=== PATIENT | male | born 1945 | race Caucasian/White ===

== ENCOUNTER → 2020-04-09 14:24 | Outpatient (BNVA) | payer MEDICARE, SELFPAY | PROVIDERS: PCP Internal Medicine Medical Oncology; Visit Provider Internal Medicine | DX: J44.9 Chronic obstructive pulmonary disease, unspecified (principal); Z79.899 Other long term (current) drug therapy | CPT/HCPCS: 99212 ==

== ENCOUNTER → 2020-05-08 10:42 | Outpatient (BNVA) | payer MEDICARE, SELFPAY | PROVIDERS: PCP Internal Medicine Medical Oncology; Visit Provider Internal Medicine | DX: J44.9 Chronic obstructive pulmonary disease, unspecified (principal) | CPT/HCPCS: 99212 ==

== ENCOUNTER → 2020-09-12 10:13 | Outpatient (BNVA) | payer MEDICARE, SELFPAY | PROVIDERS: PCP Internal Medicine Medical Oncology; Visit Provider Internal Medicine | DX: J44.9 Chronic obstructive pulmonary disease, unspecified (principal) | CPT/HCPCS: 99212 ==

== ENCOUNTER 2021-01-29 10:00 | Outpatient (REF) | payer MEDICARE, SELFPAY ==
[2021-01-29 10:19] LABS: MANUAL DIFF FLAG NO
[2021-01-29 10:46] LABS: Basophils Percent Auto 0.4 % (0-2); Eosinophils Absolute Auto 0.2 X10*3/uL (0.0-0.4); Eosinophils Percent Auto 1.8 % (0-4); Hematocrit 47.5 % (42-52); Hemoglobin 15.5 g/dl (14.0-18.0); Imm Gran Abs Auto 0.04 X10*3/uL (0.00-0.03); Imm Gran Pct Auto 0.5 % (0.0-0.4); Lymphocytes Absolute Auto 1.3 X10*3/uL (1.2-4.9); Lymphocytes Percent Auto 15.1 % (20-40); Mean Corpuscular HGB Conc 32.6 g/dl (31.0-36.0); Mean Corpuscular Hemoglobin 30.3 pg (27.0-33.0); Mean Corpuscular Volume 92.8 fL (80-98); Mean Platelet Volume 8.3 fL (9.4-12.4); Monocytes Absolute Auto 0.7 X10*3/uL (0.1-1.2); Monocytes Percent Auto 8.7 % (2-11); Neutrophils Absolute Auto 6.2 X10*3/uL (2.0-8.3); Neutrophils Percent Auto 73.5 % (45-73); Platelet Count 279 X10*3/uL (160-400); Red Blood Count 5.12 X10*6/uL (4.60-5.80); Red Cell Distribution Width 13.8 % (11.0-16.0); White Blood Count 8.4 X10*3/uL (4.8-10.8)
[2021-01-29 11:17] LABS: Alanine Aminotransferase 25 U/L (0-40); Albumin Level 3.9 g/dL (3.5-5.0); Alkaline Phosphatase 159 U/L (39-117); Anion Gap 12 (12-20); Aspartate Amino Transferase 18 U/L (5-37); Bilirubin Total 0.4 mg/dL (0.0-1.0); Blood Urea Nitrogen 17 mg/dL (9-16); Calcium 9.4 mg/dL (8.4-10.2); Carbon Dioxide 28 mmol/L (22-29); Chloride 105 mmol/L (96-108); Cholesterol 201 mg/dL; Estimated Glomerular Filt Rate > 60; Glucose Random 101 mg/dL (60-115); HDL Cholesterol 32 mg/dL; LDL Cholesterol Calculated 136 mg/dl; Potassium 4.8 mmol/L (3.3-5.1); Sodium 140 mmol/L (135-145); Total Protein 6.9 g/dL (6.5-8.0); Triglycerides 168 mg/dL
[2021-01-29 11:40] LABS: Prostate Specific Antigen 1.42 ng/mL (<0.05-4.0)
== END 2021-01-29 10:01 | disposition home or self-care (01) ==
LOC: HO.LAB 10:00
PROVIDERS: PCP Internal Medicine Medical Oncology; Visit Provider Internal Medicine Medical Oncology
DX: Z12.5 Encounter for screening for malignant neoplasm of prostate (principal); E78.2 Mixed hyperlipidemia; E66.9 Obesity, unspecified; N40.1 Benign prostatic hyperplasia with lower urinary tract symptoms
CPT/HCPCS: 36415; 80053; 80061; 84153; 85025

== ENCOUNTER → 2021-03-13 09:09 | Outpatient (BNVA) | payer MEDICARE, SELFPAY | PROVIDERS: PCP Internal Medicine Medical Oncology; Visit Provider Internal Medicine | DX: J44.9 Chronic obstructive pulmonary disease, unspecified (principal) | CPT/HCPCS: 99212 ==

== ENCOUNTER 2021-06-04 08:31 | Outpatient (REF) | payer MEDICARE, SELFPAY ==
[2021-06-04 08:48] LABS: MANUAL DIFF FLAG NO
[2021-06-04 09:35] LABS: Basophils Percent Auto 0.3 % (0-2); Eosinophils Absolute Auto 0.1 X10*3/uL (0.0-0.4); Eosinophils Percent Auto 1.4 % (0-4); Hematocrit 50.2 % (42.0-52.0); Hemoglobin 16.1 g/dl (14.0-18.0); Imm Gran Abs Auto 0.02 X10*3/uL (0.00-0.03); Imm Gran Pct Auto 0.3 % (0.0-0.4); Lymphocytes Absolute Auto 1.5 X10*3/uL (1.2-4.9); Lymphocytes Percent Auto 18.9 % (20-40); Mean Corpuscular HGB Conc 32.1 g/dl (31.0-36.0); Mean Corpuscular Hemoglobin 30.3 pg (27.0-33.0); Mean Corpuscular Volume 94.5 fL (80.0-98.0); Mean Platelet Volume 8.9 fL (9.4-12.4); Monocytes Absolute Auto 0.7 X10*3/uL (0.1-1.2); Monocytes Percent Auto 9.2 % (2-11); Neutrophils Absolute Auto 5.4 x10*3/uL (2.0-8.3); Neutrophils Percent Auto 69.9 % (45-73); Platelet Count 220 X10*3/uL (160-400); Red Blood Count 5.31 X10*6/uL (4.60-5.80); Red Cell Distribution Width 14.2 % (11.0-16.0); White Blood Count 7.7 X10*3/uL (4.8-10.8)
[2021-06-04 10:15] LABS: Alanine Aminotransferase 17 U/L (0-40); Albumin Level 4.3 g/dL (3.5-5.0); Alkaline Phosphatase 138 U/L (39-117); Anion Gap 13 (12-20); Aspartate Amino Transferase 20 U/L (5-37); Bilirubin Total 0.5 mg/dL (0.0-1.0); Blood Urea Nitrogen 17 mg/dL (9-16); Calcium 9.9 mg/dL (8.4-10.2); Carbon Dioxide 29 mmol/L (22-29); Chloride 104 mmol/L (96-108); Cholesterol 255 mg/dL; Estimated Glomerular Filt Rate > 60; Glucose Fasting 97 mg/dL (60-99); HDL Cholesterol 45 mg/dL; LDL Cholesterol Calculated 173 mg/dl; Potassium 4.9 mmol/L (3.3-5.1); Sodium 141 mmol/L (135-145); Total Protein 7.4 g/dL (6.5-8.0); Triglycerides 188 mg/dL
== END 2021-06-04 08:32 | disposition home or self-care (01) ==
LOC: HO.LAB 08:31
PROVIDERS: PCP Internal Medicine Medical Oncology; Visit Provider Internal Medicine Medical Oncology
DX: J44.9 Chronic obstructive pulmonary disease, unspecified (principal); E78.2 Mixed hyperlipidemia; Z86.2 Personal history of diseases of the blood and blood-forming organs and certain disorders involving the immune mechanism
CPT/HCPCS: 36415; 80053; 80061; 85025

== ENCOUNTER → 2021-08-29 09:11 | Outpatient (BNVA) | payer MEDICARE, SELFPAY | PROVIDERS: PCP Internal Medicine Medical Oncology; Visit Provider Internal Medicine | DX: J44.1 Chronic obstructive pulmonary disease with (acute) exacerbation (principal); J06.9 Acute upper respiratory infection, unspecified | CPT/HCPCS: 99212 ==

== ENCOUNTER 2021-09-03 10:07 | Outpatient (REF) | payer MEDICARE, SELFPAY ==
[2021-09-03 10:33] LABS: MANUAL DIFF FLAG NO
[2021-09-03 11:07] LABS: Basophils Absolute Auto 0.1 X10*3/uL (0.0-0.2); Basophils Percent Auto 0.4 % (0-2); Eosinophils Absolute Auto 0.1 X10*3/uL (0.0-0.4); Eosinophils Percent Auto 0.4 % (0-4); Hematocrit 46.7 % (42.0-52.0); Hemoglobin 15.4 g/dl (14.0-18.0); Imm Gran Abs Auto 0.27 X10*3/uL (0.00-0.03); Imm Gran Pct Auto 2.2 % (0.0-0.4); Lymphocytes Absolute Auto 1.9 X10*3/uL (1.2-4.9); Lymphocytes Percent Auto 15.4 % (20-40); Mean Corpuscular Hemoglobin 30.6 pg (27.0-33.0); Mean Corpuscular Volume 92.7 fL (80.0-98.0); Mean Platelet Volume 8.5 fL (9.4-12.4); Monocytes Absolute Auto 1.2 X10*3/uL (0.1-1.2); Monocytes Percent Auto 9.4 % (2-11); Neutrophils Absolute Auto 8.9 x10*3/uL (2.0-8.3); Neutrophils Percent Auto 72.2 % (45-73); Platelet Count 319 X10*3/uL (160-400); Red Blood Count 5.04 X10*6/uL (4.60-5.80); Red Cell Distribution Width 14.4 % (11.0-16.0); White Blood Count 12.3 X10*3/uL (4.8-10.8)
[2021-09-03 11:25] LABS: Alanine Aminotransferase 19 U/L (0-40); Albumin Level 3.9 g/dL (3.5-5.0); Alkaline Phosphatase 123 U/L (39-117); Anion Gap 14 (12-20); Aspartate Amino Transferase 18 U/L (5-37); Bilirubin Total 0.6 mg/dL (0.0-1.0); Blood Urea Nitrogen 14 mg/dL (9-16); Calcium 9.7 mg/dL (8.4-10.2); Carbon Dioxide 27 mmol/L (22-29); Chloride 103 mmol/L (96-108); Cholesterol 220 mg/dL; Estimated Glomerular Filt Rate > 60; Glucose Fasting 85 mg/dL (60-99); HDL Cholesterol 40 mg/dL; LDL Cholesterol Calculated 153 mg/dl; Sodium 140 mmol/L (135-145); Triglycerides 138 mg/dL
[2021-09-03 11:47] LABS: Prostate Specific Antigen 2.42 ng/mL (<0.05-4.0)
== END 2021-09-03 10:08 | disposition home or self-care (01) ==
LOC: HO.LAB 10:07
PROVIDERS: PCP Internal Medicine Medical Oncology; Visit Provider Internal Medicine Medical Oncology
DX: Z12.5 Encounter for screening for malignant neoplasm of prostate (principal); J44.9 Chronic obstructive pulmonary disease, unspecified; E78.2 Mixed hyperlipidemia; N40.1 Benign prostatic hyperplasia with lower urinary tract symptoms
CPT/HCPCS: 36415; 80053; 80061; 84153; 85025

== ENCOUNTER → 2021-09-12 13:00 | Outpatient (BNVA) | payer MEDICARE, SELFPAY | PROVIDERS: PCP Internal Medicine Medical Oncology; Visit Provider Internal Medicine | DX: J44.9 Chronic obstructive pulmonary disease, unspecified (principal) | CPT/HCPCS: 99212 ==

== ENCOUNTER 2022-04-19 15:21 | Outpatient (REF) | payer MEDICARE, SELFPAY ==
[2022-04-19 16:25] LABS: Appearance Urine Cloudy; Color Urine DK YELLOW; Glucose Urine UA Negative (Negative); Leukocyte Esterase Urine Small (1+) (Negative); Nitrite Urine Positive (Negative); PH 5.5 (5.0-9.0); Specific Gravity - Urine 1.025 (1.005-1.025); UMIC TRIGGER UACC YES; Urine Blood Large (3+) (Negative); Urine Ketones Trace mg/dL (Negative); Urine Protein 100 (2+) mg/dL (Neg-Trace)
[2022-04-19 16:37] LABS: Bacteria Urine 1+ (None Seen); Calcium Oxalate Crystals Urine Present; Hyaline Casts Urine 0-2 /LPF (0-2); Other Crystals Urine Present; RBC Urine >20 /HPF (0-2); Squamous Epithelial Cell Urine 0-2 /HPF (0-2); UACC Culture Trigger YES; WBC Urine >50 /HPF (0-5)
== END 2022-04-19 15:22 | disposition home or self-care (01) ==
LOC: HO.LAB 15:21
PROVIDERS: Visit Provider Physician Assistant Medical
DX: R31.9 Hematuria, unspecified (principal)
CPT/HCPCS: 81001; 87086

== ENCOUNTER 2022-04-22 08:11 | Outpatient (REF) | payer MEDICARE, SELFPAY ==
[2022-04-22 08:22] LABS: MANUAL DIFF FLAG NO
[2022-04-22 08:57] LABS: Basophils Percent Auto 0.3 % (0-2); Eosinophils Absolute Auto 0.1 X10*3/uL (0.0-0.4); Eosinophils Percent Auto 1.4 % (0-4); Hematocrit 47.8 % (42.0-52.0); Hemoglobin 15.8 g/dl (14.0-18.0); Imm Gran Abs Auto 0.03 X10*3/uL (0.00-0.03); Imm Gran Pct Auto 0.4 % (0.0-0.4); Lymphocytes Absolute Auto 1.7 X10*3/uL (1.2-4.9); Lymphocytes Percent Auto 21.8 % (20-40); Mean Corpuscular HGB Conc 33.1 g/dl (31.0-36.0); Mean Corpuscular Hemoglobin 30.4 pg (27.0-33.0); Mean Corpuscular Volume 91.9 fL (80.0-98.0); Mean Platelet Volume 8.5 fL (9.4-12.4); Monocytes Absolute Auto 0.6 X10*3/uL (0.1-1.2); Monocytes Percent Auto 8.3 % (2-11); Neutrophils Absolute Auto 5.2 x10*3/uL (2.0-8.3); Neutrophils Percent Auto 67.8 % (45-73); Platelet Count 225 X10*3/uL (160-400); Red Cell Distribution Width 13.7 % (11.0-16.0); White Blood Count 7.6 X10*3/uL (4.8-10.8)
[2022-04-22 09:33] LABS: Appearance Urine Cloudy; Color Urine Yellow; Glucose Urine UA Negative (Negative); Leukocyte Esterase Urine Large (3+) (Negative); Nitrite Urine Negative (Negative); Specific Gravity - Urine 1.015 (1.005-1.025); UMIC TRIGGER UACC YES; Urine Blood Negative (Negative); Urine Ketones Negative (Negative); Urine Protein Negative (Neg-Trace)
[2022-04-22 09:35] LABS: Alanine Aminotransferase 14 U/L (0-40); Albumin Level 4.1 g/dL (3.5-5.0); Alkaline Phosphatase 133 U/L (39-117); Anion Gap 11 (12-20); Aspartate Amino Transferase 18 U/L (5-37); Bilirubin Total 0.5 mg/dL (0.0-1.0); Blood Urea Nitrogen 13 mg/dL (9-16); Calcium 9.4 mg/dL (8.4-10.2); Carbon Dioxide 29 mmol/L (22-29); Chloride 106 mmol/L (96-108); Cholesterol 219 mg/dL; Estimated Glomerular Filt Rate > 60; Glucose Random 100 mg/dL (60-115); HDL Cholesterol 43 mg/dL; LDL Cholesterol Calculated 147 mg/dl; Potassium 4.5 mmol/L (3.3-5.1); Sodium 141 mmol/L (135-145); Total Protein 6.9 g/dL (6.5-8.0); Triglycerides 146 mg/dL
[2022-04-22 10:13] LABS: Calcium Oxalate Crystals Urine Present; UACC Culture Trigger YES; WBC Urine 21-50 /HPF (0-5)
[2022-04-22 10:15] LABS: Bacteria Urine Trace (None Seen); Hyaline Casts Urine 0-2 /LPF (0-2); RBC Urine 0-2 /HPF (0-2)
== END 2022-04-22 08:12 | disposition home or self-care (01) ==
LOC: HO.LAB 08:11
PROVIDERS: Physician Assistant Medical; PCP Internal Medicine Medical Oncology; Visit Provider Internal Medicine Medical Oncology
DX: Z00.00 Encounter for general adult medical examination without abnormal findings (principal); J44.9 Chronic obstructive pulmonary disease, unspecified; E78.2 Mixed hyperlipidemia; E66.9 Obesity, unspecified
CPT/HCPCS: 36415; 80053; 80061; 81001; 85025; 87086

== ENCOUNTER 2022-07-16 08:20 | Outpatient (REF) | payer MEDICARE, SELFPAY ==
[2022-07-16 08:36] LABS: MANUAL DIFF FLAG NO
[2022-07-16 09:03] LABS: Basophils Percent Auto 0.4 % (0-2); Eosinophils Absolute Auto 0.1 X10*3/uL (0.0-0.4); Eosinophils Percent Auto 1.7 % (0-4); Hematocrit 46.8 % (42.0-52.0); Hemoglobin 15.6 g/dl (14.0-18.0); Imm Gran Abs Auto 0.04 X10*3/uL (0.00-0.03); Imm Gran Pct Auto 0.5 % (0.0-0.4); Lymphocytes Absolute Auto 1.6 X10*3/uL (1.2-4.9); Lymphocytes Percent Auto 19.4 % (20-40); Mean Corpuscular HGB Conc 33.3 g/dl (31.0-36.0); Mean Corpuscular Hemoglobin 30.8 pg (27.0-33.0); Mean Corpuscular Volume 92.3 fL (80.0-98.0); Mean Platelet Volume 8.5 fL (9.4-12.4); Monocytes Absolute Auto 0.7 X10*3/uL (0.1-1.2); Monocytes Percent Auto 7.9 % (2-11); Neutrophils Absolute Auto 5.8 x10*3/uL (2.0-8.3); Neutrophils Percent Auto 70.1 % (45-73); Platelet Count 258 X10*3/uL (160-400); Red Blood Count 5.07 X10*6/uL (4.60-5.80); Red Cell Distribution Width 14.2 % (11.0-16.0); White Blood Count 8.2 X10*3/uL (4.8-10.8)
[2022-07-16 09:43] LABS: Alanine Aminotransferase 17 U/L (0-40); Alkaline Phosphatase 138 U/L (39-117); Anion Gap 12 (12-20); Aspartate Amino Transferase 18 U/L (5-37); Bilirubin Total 0.5 mg/dL (0.0-1.0); Blood Urea Nitrogen 14 mg/dL (9-16); Calcium 9.5 mg/dL (8.4-10.2); Carbon Dioxide 29 mmol/L (22-29); Chloride 107 mmol/L (96-108); Cholesterol 227 mg/dL; Estimated Glomerular Filt Rate > 60; Glucose Fasting 100 mg/dL (60-99); HDL Cholesterol 41 mg/dL; LDL Cholesterol Calculated 154 mg/dl; Potassium 4.9 mmol/L (3.3-5.1); Sodium 143 mmol/L (135-145); Total Protein 6.6 g/dL (6.5-8.0); Triglycerides 161 mg/dL
[2022-07-16 10:03] LABS: Ferritin 89 ng/mL (20-250)
== END 2022-07-16 08:21 | disposition home or self-care (01) ==
LOC: HO.LAB 08:20
PROVIDERS: PCP Internal Medicine Medical Oncology; Visit Provider Internal Medicine Medical Oncology
DX: J43.9 Emphysema, unspecified (principal); E78.2 Mixed hyperlipidemia; Z86.2 Personal history of diseases of the blood and blood-forming organs and certain disorders involving the immune mechanism
CPT/HCPCS: 36415; 80053; 80061; 82728; 85025

== ENCOUNTER → 2022-09-02 10:06 | Outpatient (BNVA) | payer MEDICARE, SELFPAY | PROVIDERS: PCP Internal Medicine Medical Oncology; Visit Provider Internal Medicine | DX: J44.9 Chronic obstructive pulmonary disease, unspecified (principal) | CPT/HCPCS: 99212 ==

== ENCOUNTER 2022-10-15 09:23 | Outpatient (REF) | payer MEDICARE, SELFPAY ==
[2022-10-15 09:43] LABS: MANUAL DIFF FLAG NO
[2022-10-15 10:43] LABS: Basophils Percent Auto 0.2 % (0-2); Eosinophils Absolute Auto 0.1 X10*3/uL (0.0-0.4); Eosinophils Percent Auto 1.4 % (0-4); Hematocrit 46.6 % (42.0-52.0); Hemoglobin 15.3 g/dl (14.0-18.0); Imm Gran Abs Auto 0.02 X10*3/uL (0.00-0.03); Imm Gran Pct Auto 0.3 % (0.0-0.4); Lymphocytes Absolute Auto 1.4 X10*3/uL (1.2-4.9); Lymphocytes Percent Auto 21.4 % (20-40); Mean Corpuscular HGB Conc 32.8 g/dl (31.0-36.0); Mean Corpuscular Hemoglobin 30.3 pg (27.0-33.0); Mean Corpuscular Volume 92.3 fL (80.0-98.0); Monocytes Absolute Auto 0.7 X10*3/uL (0.1-1.2); Monocytes Percent Auto 10.2 % (2-11); Neutrophils Absolute Auto 4.3 x10*3/uL (2.0-8.3); Neutrophils Percent Auto 66.5 % (45-73); Platelet Count 209 X10*3/uL (160-400); Red Blood Count 5.05 X10*6/uL (4.60-5.80); Red Cell Distribution Width 14.5 % (11.0-16.0); White Blood Count 6.4 X10*3/uL (4.8-10.8)
[2022-10-15 11:28] LABS: Alanine Aminotransferase 17 U/L (0-40); Albumin Level 3.9 g/dL (3.5-5.0); Alkaline Phosphatase 121 U/L (39-117); Anion Gap 13 (12-20); Aspartate Amino Transferase 20 U/L (5-37); Bilirubin Total 0.6 mg/dL (0.0-1.0); Blood Urea Nitrogen 14 mg/dL (9-16); Calcium 9.5 mg/dL (8.4-10.2); Carbon Dioxide 26 mmol/L (22-29); Chloride 105 mmol/L (96-108); Cholesterol 201 mg/dL; Estimated Glomerular Filt Rate > 60; Glucose Fasting 94 mg/dL (60-99); HDL Cholesterol 45 mg/dL; LDL Cholesterol Calculated 130 mg/dl; Potassium 4.1 mmol/L (3.3-5.1); Sodium 140 mmol/L (135-145); Total Protein 6.9 g/dL (6.5-8.0); Triglycerides 133 mg/dL
== END 2022-10-15 09:24 | disposition home or self-care (01) ==
LOC: HO.LAB 09:23
PROVIDERS: PCP Internal Medicine Medical Oncology; Visit Provider Internal Medicine Medical Oncology
DX: E78.2 Mixed hyperlipidemia (principal); E66.9 Obesity, unspecified; N40.1 Benign prostatic hyperplasia with lower urinary tract symptoms
CPT/HCPCS: 36415; 80053; 80061; 85025

== ENCOUNTER 2023-03-10 10:15 | Outpatient (AMB) | payer MEDICARE, SELFPAY ==
--- NOTE | 2023-03-10 10:31 | A.OFFVIS_ITS ---
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 Allergies Penicillins [PENICILLINS] Allergy (Intermediate, Verified 03/10/23 10:43) SWELLING Sulfa (Sulfonamide Antibiotics) [Sulfa (Sulfonamides)] Allergy (Mild, Verified 03/10/23 10:43) RASH Medication List - Last Reconciled 03/10/23 by Mary Jo Mckeon MD albuterol sulfate 90 mcg/actuation 2 puffs PO Q4H PRN 30 days antiarthritic combination no.2 (glucosamine-chondroitin) mg PO Breo Ellipta 200-25 mcg/dose (fluticasone furoate-vilanterol) 1 ea PO DAILY NS flu vacc [id number](65yr up)-PF mL IM Incruse Ellipta 62.5 mcg/actuation (umeclidinium) 1 inh PO DAILY NS multivitamin (Daily Multi-Vitamin tablet) 1 tab PO DAILY pravastatin 80 mg PO BEDTIME Do you need a note to return to daycare/school/sports/work: No HPI COPD HPI Details 78 years old gentleman is here for 6 mon ths follow-up, for his COPD. He has remained very stable. Had a few episodes of increased shortness of breath in the fall, when he was working outside with the leaves. But he did not have to have any extra medication. Now he is doing well. He has only mild shortness of breath when he does physical work but he is okay at rest. Luckily he has had no respiratory infection. He lives alone , has a house on the [place] ( [facility] ) In summer he does get lot of friends and family members , but in winter he is mostly by himself. [facility] Medical History COPD exacerbation Upper respiratory infection COPD (chronic obstructive pulmonary disease) Social History Patient Tobacco Use Status: Former Tobacco user Review of Systems Const All systems reviewed & are unremarkable except as noted in HPI and below Eyes Reports no additional complaints ENT Reports no additional complaints Card Denies chest pain, Denies irregular heart rhythm and Denies leg edema Resp Reports as per HPI GI Reports no additional complaints Reports no additional complaints Musc Reports back pain (mild , if he does any physical work .) Skin/Breast Reports system reviewed and no additional complaints, except as documented Neuro Reports no additional complaints Physical Exam Vital Signs: Last Vital Signs Pulse 88 03/10/23 10:32 BP 102/70 03/10/23 10:32 Pulse Ox 98 03/10/23 10:32 Oxygen Delivery Method Room Air 03/10/23 10:32 BMI result Body Mass Index 29.4 Const General: comfortable, no acute distress, alert and awake Orientation/consciousness: patient oriented x3 HEENT Head: Yes normal to inspection General nose exam: No nasal polyps present, No nasal discharge present and Other nasal findings present (He does have mild nasal congestion) Face and sinus: Yes sinuses nontender Mouth: oropharynx normal Throat: Yes posterior oropharynx normal and Yes posterior oropharynx abnormal (Slightly erythema) Eyes General: appearance normal, both eyes and all related structures Neck Neck: Yes normal visual inspection, Yes no lymphadenopathy, Yes trachea midline and Yes no JVD Thyroid: Thyroid normal Chest Chest palpation & inspection: normal inspection of the chest, normal palpation of entire chest wall and no tenderness Resp Other: Percussion note is resonant, breath sounds are very distant with prolonged expiratory phase. There are no audible wheezes rhonchi . Cardio Palpation: normal PMI Rate: regular rate Rhythm: regular rhythm Heart sounds: no gallops and no murmurs GI Palpation (GI): Soft to palpation, nontender, No hepatosplenomegaly present and no masses Auscultation: normal bowel sounds Back/Spine/Pelvis Thoracic/Lumbar Spine: thoracic and lumbar spine normal to inspection and thoraco-lumbar ROM limited Skin General skin exam: no rashes or lesions noted Neuro General: patient oriented x3 and no focal motor deficits Cranial nerves: Yes CN's II-XII intact bilaterally Extrem General: Yes normal to inspection, Yes no clubbing, cyanosis or edema and Yes no calf tenderness Psych Appearance: grossly normal and well kempt Speech and movement: Normal speech and movement present Assessment & Plan Assessment & Plan (1) COPD (chronic obstructive pulmonary disease): Comment: He has rather severe , COPD . No recent acute exacerbations. Code(s): J44.9 - Chronic obstructive pulmonary disease, unspecified Plan: [place] : BREO-200, 1 INHALATION DAILY INCRUSE Ellipta 1 INHALATION DAILY PROAIR HFA 2 PUFFS Q.6 HOURS P.R.N.. * advised to do deep breathing exercises at least 3 times a day. Revisit Q 6 months. Coding Level of Care Code Est Pt Level 3 (42470) Diagnoses COPD (chronic obstructive pulmonary disease) J44.9
[2023-03-10 10:32] VITALS: BP 102/70; PULSE 88; O2SAT 98; BMI 29.4
== END 2023-03-10 10:58 | disposition home or self-care (01) ==
PROVIDERS: PCP Internal Medicine Medical Oncology; Visit Provider Internal Medicine
DX: J44.9 Chronic obstructive pulmonary disease, unspecified (principal)
CPT/HCPCS: 99213

== ENCOUNTER → 2023-03-10 10:15 | Outpatient (BNVA) | payer MEDICARE, SELFPAY | PROVIDERS: PCP Internal Medicine Medical Oncology; Visit Provider Internal Medicine | DX: J44.9 Chronic obstructive pulmonary disease, unspecified (principal) | CPT/HCPCS: 99212 ==

== ENCOUNTER 2023-03-24 09:04 | Outpatient (REF) | payer MEDICARE, SELFPAY ==
[2023-03-24 09:16] LABS: MANUAL DIFF FLAG NO
[2023-03-24 10:00] LABS: Basophils Percent Auto 0.2 % (0-2); Eosinophils Absolute Auto 0.2 X10*3/uL (0.0-0.4); Eosinophils Percent Auto 1.9 % (0-4); Hematocrit 46.1 % (42.0-52.0); Hemoglobin 15.2 g/dl (14.0-18.0); Imm Gran Abs Auto 0.05 X10*3/uL (0.00-0.03); Imm Gran Pct Auto 0.5 % (0.0-0.4); Lymphocytes Absolute Auto 1.4 X10*3/uL (1.2-4.9); Lymphocytes Percent Auto 13.8 % (20-40); Mean Corpuscular Hemoglobin 30.7 pg (27.0-33.0); Mean Corpuscular Volume 93.1 fL (80.0-98.0); Mean Platelet Volume 8.9 fL (9.4-12.4); Monocytes Absolute Auto 0.7 X10*3/uL (0.1-1.2); Neutrophils Absolute Auto 7.6 x10*3/uL (2.0-8.3); Neutrophils Percent Auto 76.6 % (45-73); Platelet Count 218 X10*3/uL (160-400); Red Blood Count 4.95 X10*6/uL (4.60-5.80); Red Cell Distribution Width 13.7 % (11.0-16.0); White Blood Count 9.9 X10*3/uL (4.8-10.8)
[2023-03-24 10:38] LABS: Alanine Aminotransferase 13 U/L (0-40); Alkaline Phosphatase 162 U/L (39-117); Anion Gap 13 (12-20); Aspartate Amino Transferase 16 U/L (5-37); Bilirubin Total 0.5 mg/dL (0.0-1.0); Blood Urea Nitrogen 14 mg/dL (9-16); Calcium 9.8 mg/dL (8.4-10.2); Carbon Dioxide 27 mmol/L (22-29); Chloride 106 mmol/L (96-108); Cholesterol 199 mg/dL (<200); Estimated Glomerular Filt Rate > 60; Glucose Fasting 98 mg/dL (60-99); HDL Cholesterol 36 mg/dL (>40); LDL Cholesterol Calculated 131 mg/dL (<100); Potassium 4.4 mmol/L (3.3-5.1); Sodium 142 mmol/L (135-145); Total Protein 7.5 g/dL (6.5-8.0); Triglycerides 163 mg/dL (<150)
[2023-03-24 10:43] LABS: Prostate Specific Antigen 1.11 ng/mL (<0.05-4.0)
== END 2023-03-24 09:05 | disposition home or self-care (01) ==
LOC: HO.LAB 09:04
PROVIDERS: PCP Internal Medicine Medical Oncology; Visit Provider Internal Medicine Medical Oncology
DX: E78.2 Mixed hyperlipidemia (principal); N40.1 Benign prostatic hyperplasia with lower urinary tract symptoms; E66.3 Overweight; Z12.5 Encounter for screening for malignant neoplasm of prostate
CPT/HCPCS: 36415; 80053; 80061; 84153; 85025

== ENCOUNTER 2023-08-04 09:03 | Outpatient (REF) | payer MEDICARE, SELFPAY ==
[2023-08-04 09:13] LABS: MANUAL DIFF FLAG NO
[2023-08-04 09:37] LABS: Basophils Percent Auto 0.2 % (0-2); Eosinophils Absolute Auto 0.2 X10*3/uL (0.0-0.4); Eosinophils Percent Auto 1.8 % (0-4); Hematocrit 47.2 % (42.0-52.0); Hemoglobin 15.9 g/dl (14.0-18.0); Imm Gran Abs Auto 0.03 X10*3/uL (0.00-0.03); Imm Gran Pct Auto 0.3 % (0.0-0.4); Lymphocytes Absolute Auto 1.6 X10*3/uL (1.2-4.9); Lymphocytes Percent Auto 18.2 % (20-40); Mean Corpuscular HGB Conc 33.7 g/dl (31.0-36.0); Mean Corpuscular Hemoglobin 30.9 pg (27.0-33.0); Mean Corpuscular Volume 91.8 fL (80.0-98.0); Mean Platelet Volume 8.8 fL (9.4-12.4); Monocytes Absolute Auto 0.7 X10*3/uL (0.1-1.2); Monocytes Percent Auto 7.9 % (2-11); Neutrophils Absolute Auto 6.3 x10*3/uL (2.0-8.3); Neutrophils Percent Auto 71.6 % (45-73); Platelet Count 203 X10*3/uL (160-400); Red Blood Count 5.14 X10*6/uL (4.60-5.80); Red Cell Distribution Width 14.4 % (11.0-16.0); White Blood Count 8.8 X10*3/uL (4.8-10.8)
[2023-08-04 10:13] LABS: Alanine Aminotransferase 15 U/L (0-40); Albumin Level 4.1 g/dL (3.5-5.0); Alkaline Phosphatase 137 U/L (39-117); Anion Gap 13 (12-20); Aspartate Amino Transferase 20 U/L (5-37); Bilirubin Total 0.4 mg/dL (0.0-1.0); Blood Urea Nitrogen 16 mg/dL (9-16); Calcium 9.8 mg/dL (8.4-10.2); Carbon Dioxide 27 mmol/L (22-29); Chloride 105 mmol/L (96-108); Cholesterol 203 mg/dL (<200); Estimated Glomerular Filt Rate > 60; Glucose Fasting 95 mg/dL (60-99); HDL Cholesterol 41 mg/dL (>40); LDL Cholesterol Calculated 130 mg/dL (<100); Potassium 4.3 mmol/L (3.3-5.1); Sodium 141 mmol/L (135-145); Total Protein 7.5 g/dL (6.5-8.0); Triglycerides 160 mg/dL (<150)
[2023-08-04 10:28] LABS: Ferritin 86 ng/mL (20-250)
[2023-08-07 21:48] LABS: Alk.Phos Iso. Macrohepatic 0 % (<=0); Alk.Phos Isoenzymes Bone 34 % (28-66); Alk.Phos Isoenzymes Intest 9 % (1-24); Alk.Phos Isoenzymes Liver 57 % (25-69); Alk.Phos Isoenzymes Placental 0 % (<=0); Alk.Phos Isoenzymes Total 130 U/L (35-144)
== END 2023-08-04 09:04 | disposition home or self-care (01) ==
LOC: HO.LAB 09:03
PROVIDERS: PCP Internal Medicine Medical Oncology; Visit Provider Internal Medicine Medical Oncology
DX: E78.2 Mixed hyperlipidemia (principal); E66.3 Overweight; R74.8 Abnormal levels of other serum enzymes
CPT/HCPCS: 36415; 80053; 80061; 82728; 84080; 85025

== ENCOUNTER 2023-09-09 14:25 | Outpatient (AMB) | payer MEDICARE, SELFPAY ==
[2023-09-09 15:08] VITALS: BP 118/60; PULSE 111; O2SAT 95; BMI 29.6
--- NOTE | 2023-09-09 15:08 | MHC.OFFVIS ---
Vital Signs 09/09/23 15:08 Height 6 ft Weight 218 lb BMI 29.6 BP 118/60 Blood Pressure Location Lt brachial Position Sitting Pulse 111 H Pulse Source Pulse Oximeter Pulse Oximetry (%) 95 Oxygen Delivery Method Room Air Intake Visit Reasons: copd Intake Note: pt is here for follow up visit and states he has been having trouble the past few days, coughing up phlegm in chunks, no fever, but has to hit the inhaler when walking distances the past couple of days. 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 Allergies Penicillins [PENICILLINS] Allergy (Intermediate, Verified 09/09/23 16:26) SWELLING Sulfa (Sulfonamide Antibiotics) [Sulfa (Sulfonamides)] Allergy (Mild, Verified 09/09/23 16:26) RASH Medication List - Last Reconciled 09/09/23 by Mary Jo Mckeon MD albuterol sulfate 90 mcg/actuation 2 puffs PO Q4H PRN 30 days antiarthritic combination no.2 (glucosamine-chondroitin) mg PO Breo Ellipta 200-25 mcg/dose (fluticasone furoate-vilanterol) 1 ea PO DAILY NS flu vacc [id number](65yr up)-PF mL IM Incruse Ellipta 62.5 mcg/actuation (umeclidinium) 1 inh PO DAILY NS multivitamin (Daily Multi-Vitamin tablet) 1 tab PO DAILY pravastatin 80 mg PO BEDTIME prednisone 20 mg PO BID 5 days Do you need a note to return to daycare/school/sports/work: No HPI HPI copd: Details: MR. CANELA, 78 YEARS OLD GENTLEMAN, IS HERE FOR FOLLOW-UP FOR HIS COPD. HE HAS BEEN DOING VERY WELL IN THE LAST 6 MONTHS, EXCEPT THAT SINCE ABOUT 1 WEEK HE IS FEELING MORE CONGESTED WITH FREQUENT COUGH AND EXPECTORATING INCREASED AMOUNT OF PHLEGM. HE THINKS THIS IS DUE TO CHANGE IN THE WEATHER. HE DENIES HAVING HAD ANY FEVER OR CHILLS , AND HIS SPUTUM REMAINS WHITE. HE HAS BEEN USING ALBUTEROL MORE THAN A FEW TIMES EVERY DAY. [facility] Medical History COPD exacerbation Upper respiratory infection COPD (chronic obstructive pulmonary disease) Social History Patient Tobacco Use Status: Former Tobacco user Review of Systems Const All systems reviewed & are unremarkable except as noted in HPI and below Eyes Reports no additional complaints ENT Reports no additional complaints Card Denies chest pain, Denies irregular heart rhythm and Denies leg edema Resp Reports as per HPI GI Reports no additional complaints Reports no additional complaints Musc Reports back pain (mild , if he does any physical work .) Skin/Breast Reports system reviewed and no additional complaints, except as documented Neuro Reports no additional complaints Physical Exam Vital Signs: Last Vital Signs Pulse 111 H 09/09/23 15:08 BP 118/60 09/09/23 15:08 Pulse Ox 95 09/09/23 15:08 Oxygen Delivery Method Room Air 09/09/23 15:08 BMI result Body Mass Index 29.6 Const General: comfortable, no acute distress, alert and awake Orientation/consciousness: patient oriented x3 HEENT Head: Yes normal to inspection General nose exam: No nasal polyps present, No nasal discharge present and Other nasal findings present (He does have mild nasal congestion) Face and sinus: Yes sinuses nontender Mouth: oropharynx normal Throat: Yes posterior oropharynx normal and Yes posterior oropharynx abnormal (Slightly erythema) Eyes General: appearance normal, both eyes and all related structures Neck Neck: Yes normal visual inspection, Yes no lymphadenopathy, Yes trachea midline and Yes no JVD Thyroid: Thyroid normal Chest Chest palpation & inspection: normal inspection of the chest, normal palpation of entire chest wall and no tenderness Resp Other: Percussion note is resonant, breath sounds are very distant with prolonged expiratory phase. HE DOES HAVE SCATTERED INSPIRATORY WHEEZES OVER THE LOWER PARTS OF THE CHEST ON BOTH SIDES. Cardio Palpation: normal PMI Rate: regular rate Rhythm: regular rhythm Heart sounds: no gallops and no murmurs GI Palpation (GI): Soft to palpation, nontender, No hepatosplenomegaly present and no masses Auscultation: normal bowel sounds Back/Spine/Pelvis Thoracic/Lumbar Spine: thoracic and lumbar spine normal to inspection and thoraco-lumbar ROM limited Skin General skin exam: no rashes or lesions noted Neuro General: patient oriented x3 and no focal motor deficits Cranial nerves: Yes CN's II-XII intact bilaterally Extrem General: Yes normal to inspection, Yes no clubbing, cyanosis or edema and Yes no calf tenderness Psych Appearance: grossly normal and well kempt Speech and movement: Normal speech and movement present Assessment & Plan Assessment & Plan (1) COPD exacerbation: Comment: HE IS KNOWN TO HAVE ADVANCED CHRONIC OBSTRUCTIVE PULMONARY DISEASE FOR THE PAST MANY YEARS, IT REMAINS RELATIVELY CONTROLLED AND STABLE MOST OF THE TIME. HE IS PRONE TO HAVE ACUTE EXACERBATION ONCE OR TWICE A YEAR., PROBABLY DUE TO CHANGE IN THE WEATHER. AT PRESENT HE HAS AN ACUTE EXACERBATION, BUT DOES NOT SEEM TO HAVE ANY ACUTE RESPIRATORY INFECTION. Code(s): J44.1 - Chronic obstructive pulmonary disease with (acute) exacerbation Category: Medical Plan: TX: Continue Breo-200-25 1 inhalation daily and Incruse Ellipta 1 inhalation daily. Use ProAir 2 puffs Q 4-6 hours p.r.n. but avoid any excessive use. WILL GIVE HIM A SHORT COURSE OF PREDNISONE, TOTAL MG B.I.D. FOR 5 DAYS . MAY USE STEAM INHALATION 2 TO 3 TIMES A DAY REPORT AFTER 5 DAYS IF NOT MUCH BETTER. DISCUSSED ABOUT POSSIBLE USE OF THE NEBULIZER. HOWEVER HE HAS NO PROBLEM WITH USING PROAIR. Medications: New prednisone 20 mg PO BID 10 tabs 0RF copd excerbation 5 days Coding Level of Care Code Est Pt Level 3 (13602) Diagnoses COPD exacerbation J44.1
== END 2023-09-09 15:31 | disposition home or self-care (01) ==
PROVIDERS: PCP Internal Medicine Medical Oncology; Visit Provider Internal Medicine
DX: J44.1 Chronic obstructive pulmonary disease with (acute) exacerbation (principal)
CPT/HCPCS: 99213

== ENCOUNTER → 2023-09-09 14:25 | Outpatient (BNVA) | payer MEDICARE, SELFPAY | PROVIDERS: PCP Internal Medicine Medical Oncology; Visit Provider Internal Medicine | DX: J44.1 Chronic obstructive pulmonary disease with (acute) exacerbation (principal) | CPT/HCPCS: 99212 ==

== ENCOUNTER 2023-11-26 08:59 | Outpatient (REF) | payer MEDICARE, SELFPAY ==
[2023-11-26 09:10] LABS: MANUAL DIFF FLAG NO
[2023-11-26 09:30] LABS: Basophils Percent Auto 0.4 % (0-2); Eosinophils Absolute Auto 0.2 X10*3/uL (0.0-0.4); Eosinophils Percent Auto 1.9 % (0-4); Hematocrit 46.6 % (42.0-52.0); Hemoglobin 15.6 g/dl (14.0-18.0); Imm Gran Abs Auto 0.02 X10*3/uL (0.00-0.03); Imm Gran Pct Auto 0.2 % (0.0-0.4); Lymphocytes Absolute Auto 1.7 X10*3/uL (1.2-4.9); Lymphocytes Percent Auto 20.7 % (20-40); Mean Corpuscular HGB Conc 33.5 g/dl (31.0-36.0); Mean Corpuscular Hemoglobin 30.6 pg (27.0-33.0); Mean Corpuscular Volume 91.4 fL (80.0-98.0); Mean Platelet Volume 8.5 fL (9.4-12.4); Monocytes Absolute Auto 0.7 X10*3/uL (0.1-1.2); Monocytes Percent Auto 9.2 % (2-11); Neutrophils Absolute Auto 5.4 x10*3/uL (2.0-8.3); Neutrophils Percent Auto 67.6 % (45-73); Platelet Count 239 X10*3/uL (160-400); Red Cell Distribution Width 14.3 % (11.0-16.0)
[2023-11-26 09:59] LABS: Alanine Aminotransferase 16 U/L (0-40); Albumin Level 4.1 g/dL (3.5-5.0); Alkaline Phosphatase 125 U/L (39-117); Anion Gap 12 (12-20); Aspartate Amino Transferase 22 U/L (5-37); Bilirubin Total 0.5 mg/dL (0.0-1.0); Blood Urea Nitrogen 16 mg/dL (9-16); Carbon Dioxide 29 mmol/L (22-29); Chloride 107 mmol/L (96-108); Cholesterol 216 mg/dL (<200); Estimated Glomerular Filt Rate > 60; Glucose Fasting 100 mg/dL (60-99); HDL Cholesterol 43 mg/dL (>40); LDL Cholesterol Calculated 142 mg/dL (<100); Potassium 4.3 mmol/L (3.3-5.1); Sodium 144 mmol/L (135-145); Total Protein 7.3 g/dL (6.5-8.0); Triglycerides 159 mg/dL (<150)
[2023-11-26 10:16] LABS: Prostate Specific Antigen 1.46 ng/mL (<0.05-4.0)
== END 2023-11-26 09:00 | disposition home or self-care (01) ==
LOC: HO.LAB 08:59
PROVIDERS: PCP Internal Medicine Medical Oncology; Visit Provider Internal Medicine Medical Oncology
DX: E78.2 Mixed hyperlipidemia (principal); N40.1 Benign prostatic hyperplasia with lower urinary tract symptoms; E66.3 Overweight; Z12.5 Encounter for screening for malignant neoplasm of prostate
CPT/HCPCS: 36415; 80053; 80061; 84153; 85025

== ENCOUNTER 2024-03-07 14:51 | Outpatient (AMB) | payer MEDICARE, SELFPAY ==
[2024-03-07 15:06] VITALS: PULSE 123; O2SAT 92; BMI 28.9
--- NOTE | 2024-03-07 15:06 | MHC.OFFVIS ---
Vital Signs 03/07/24 15:06 Height 6 ft Weight 212 lb 11.937 oz BMI 28.9 Pulse 123 H Pulse Source Pulse Oximeter Pulse Oximetry (%) 92 Oxygen Delivery Method Nasal Cannula Oxygen Flow Rate 2 Intake Visit Reasons: increased shortness of breath/productive cough Allergies Penicillins [PENICILLINS] Allergy (Intermediate, Verified 03/07/24 15:34) SWELLING Sulfa (Sulfonamide Antibiotics) [Sulfa (Sulfonamides)] Allergy (Mild, Verified 03/07/24 15:34) RASH HPI HPI increased shortness of breath/productive cough: Details: Jaren is a pleasant 79 year old male, former smoker, with underlying COPD. At baseline is moderately controlled on Breo, Incruse and albuterol MDI. He is under the care of Dr. Mckeon and presents today for an acute visit. Since Thursday patient has had worsening dyspnea on minimal exertion and productive cough. He denies wheezing or chest tightness. He denies sick contacts, chills, or fever. He has been using albuterol with minimal effect. Upon arrival to room patient was 83% on room air, never requiring supplemental oxygen previously. HR 120s with minimal exertion. Denies any chest pain or dizziness. Of note, he reports symptoms started after a fall sustaining right shoulder pain. He denies striking head. He denies evaluation for this. [facility] Medical History COPD exacerbation Upper respiratory infection COPD (chronic obstructive pulmonary disease) Social History Patient Tobacco Use Status: Former Tobacco user Review of Systems Const Denies chills, Denies excessive sweating, Denies fever(s), Denies headache(s) and Denies night sweats Eyes Denies dry eyes, Denies irritation and Denies itchy eyes ENT Reports Normal hearing present and Denies headache(s) Card Denies chest pain, Denies chest pain at rest, Denies chest pain with activity, Denies claudication, Denies leg edema, Denies orthopnea and Denies paroxysmal nocturnal dyspnea Resp Denies excessive phlegm production, Denies pain on inspiration, Denies pain with cough, Denies stridor and Denies wheezing Musc Denies myalgias Neuro Reports Normal hearing present and Denies headache(s) Endo Denies excessive sweating Jovan/Lymph Denies lymphadenopathy Aller/Immun Denies itchy eyes, Denies seasonal rhinorrhea and Denies wheezing Physical Exam Vital Signs: Last Vital Signs Pulse 123 H 03/07/24 15:06 Pulse Ox 92 03/07/24 15:06 Oxygen Delivery Method Nasal Cannula 03/07/24 15:06 Oxygen Flow Rate 2 03/07/24 15:06 BMI result Body Mass Index 28.9 Const General: cooperative, well developed and alert Nutritional Appearance: obese Orientation/consciousness: patient oriented x3 Limitations: no limitations HEENT Head: Yes normal to inspection, Yes normocephalic and Yes atraumatic Ears: hearing grossly normal bilaterally and external ears normal Eyes General: appearance normal, both eyes and all related structures Eyelids: Yes eyelids normal Sclerae: sclerae normal EOM: EOMs intact bilaterally Neck Neck: Yes normal visual inspection and Yes no lymphadenopathy Lymphatic: no lymphadenopathy noted Chest Chest palpation & inspection: normal inspection of the chest Resp Effort & Inspection: able to speak in complete sentences, no audible wheezes, labored, no stridor, not tachypneic, no tripod positioning, no use of accessory muscles and prolonged expiratory phase Auscultation: rhonchi and diminished lung sounds Cardio Jugular venous distension: no JVD Rate: regular rate Rhythm: regular rhythm Skin Other: warm, dry General skin exam: no rashes or lesions noted Neuro General: patient oriented x3 Cranial nerves: Yes Normal hearing present Cognition (Neuro): normal cognition Gait exam (Neuro): Normal gait present Extrem General: Yes normal to inspection, Yes capillary refill normal, Yes no clubbing, cyanosis or edema and Yes no pedal edema Psych Appearance: grossly normal and well kempt Speech and movement: Normal speech and movement present and Clear speech present Affect: normal affect Attitude: cooperative Thought process: Normal thought process present Thought content: Normal thought content present Insight: Good insight present (Psych) Judgement: Good judgement present (Psych) Assessment & Plan Assessment & Plan (1) COPD exacerbation: Code(s): J44.1 - Chronic obstructive pulmonary disease with (acute) exacerbation Category: Medical Plan Patient newly requiring supplemental oxygen, 83% on room air, recovering to >92% on 2L however with prolonged speech patient would desaturate to 90% on 2L and tachycardic. Will send to ED for emergent evaluation. Patient was transported in wheelchair by nursing staff to ED. Will follow up with Dr. Mckeon for ED follow up. Coding Level of Care Code Est Pt Level 4 (00762) Complex EM visit Add On G2211 Diagnoses COPD exacerbation J44.1
== END 2024-03-07 16:16 | disposition home or self-care (01) ==
PROVIDERS: PCP Internal Medicine Medical Oncology; Visit Provider Nurse Practitioner Family
DX: J44.1 Chronic obstructive pulmonary disease with (acute) exacerbation (principal)
CPT/HCPCS: 99214; G2211

== ENCOUNTER 2024-03-07 15:26 | Inpatient (IN) | payer MEDICARE, SELFPAY ==
--- NOTE | ~2024-03-07 | XR_ITS ---
EXAMINATION: XR CHEST CLINICAL INFORMATION: sob COMPARISON: Chest x-ray on 06/01/2019 TECHNIQUE: 2 views of the chest were obtained. FINDINGS: The cardiac silhouette is normal. There is mild diffuse bronchial wall thickening. There is a region of subpleural consolidation/density along the right upper lobe. Interstitial and alveolar opacity in the left lower lobe. There are no pleural effusions or pneumothoraces. XR/XR chest 2V IMPRESSION: Left lower lobe pneumonia. Right upper lobe density may represent consolidation versus mass. Recommend short interval follow-up. Electronically signed by: Melvi Wong MD 03/07/2024 04:48 PM [facility] [place]
--- NOTE | ~2024-03-07 | CT_ITS ---
EXAMINATION: CTA CHEST CLINICAL INFORMATION: Lung mass versus pulmonary emboli COMPARISON: Chest radiograph earlier today TECHNIQUE: Multidetector volumetric CT imaging of the chest was obtained both before as well as after the administration of 65 mL of Omnipaque 350 intravenous contrast without immediate adverse reactions. Axial MIP volume rendering provided. Sagittal and coronal reformatted images were obtained. Additional 2-D coronal and sagittal reformatted images and axial 3-D maximum intensity projection MIP images are generated on the CT workstation. This CT examination was performed using dose optimization techniques as appropriate, variously including the following: *Automated exposure control *Adjustment of mA and/or kV according to patient size (this includes techniques or standardized protocols for targeted exams where dose is matched to indication/reason for exam; i.e. extremities or head) *Use of iterative reconstruction technique DLP: 449 mGy-cm VASCULAR FINDINGS: No pulmonary emboli are seen. NONVASCULAR FINDINGS: LUNGS: Severe emphysematous changes are present throughout the lungs. A saber-sheath trachea is present. Subpleural reticulation is present.. Multiple masslike areas are seen in the left lower lobe (7:268 and 306) with the largest measuring about 2.2 cm. MEDIASTINUM: Some small mediastinal lymph nodes are seen measuring 1.0 cm in short axis dimension. CORONARY ARTERY CALCIFICATION: Absent PLEURA: There is no pleural effusion. No pleural mass or thickening. AXILLA/CHEST WALL: There is a 2.1 x 2.8 x 3.3 cm water density subcutaneous mass, likely a sebaceous cyst . No axillary lymphadenopathy. There is a right chest wall mass measuring 3.8 x 5.5 x 3.8 cm with associated destruction of the right third anterolateral rib. There is a subpectoral right-sided lymph node present adjacent to the chest wall mass measuring 1.9 x 1.5 x 2.3 cm (5:20 and 8:31). UPPER ABDOMEN: A small hiatal hernia is present. The adrenal glands are unremarkable. OSSEOUS STRUCTURES: Destructive lesion of the right third rib as described above. There is a compression fracture involving the L1 vertebral body. No other bony destructive lesions are seen. CT/CT angio chest PE protocol IMPRESSION: 1. No evidence of pulmonary emboli. 2. Severe emphysema with multiple masslike areas in the left lower lobe. 3. Right chest wall mass with associated destruction of the right third rib. 4. Right subpectoral lymphadenopathy. 5. L1 compression fracture. 6. Above-mentioned findings are concerning for malignancy. Biopsy of the destructive chest wall mass could easily be performed under CT guidance. 7. Other incidental findings as described above. Fleischner guidelines were followed. Electronically signed by: Clarence Block MD 03/07/2024 11:20 PM [facility]
--- NOTE | ~2024-03-07 | XR_ITS ---
EXAMINATION: XR SHOULDER, RIGHT CLINICAL INFORMATION: fall COMPARISON: None available. TECHNIQUE: Three views of the right shoulder. FINDINGS: No fracture Acromioclavicular joint: there is mild to moderate osteoarthritis of the acromioclavicular joint. Glenohumeral joint: Small marginal osteophytes without joint space narrowing indicative of mild osteoarthritis. Surrounding bone and soft tissues unremarkable. XR/XR shoulder RT min 2V IMPRESSION: Osteoarthritis Electronically signed by: Pierce Trevino MD 03/07/2024 05:37 PM EST RP
[2024-03-07 15:31] VITALS: BP 133/80; PULSE 117; RESP 18; TEMP 36.4; O2SAT 95; BMI 29.0
--- NOTE | 2024-03-07 15:35 | ECG_ITS ---
Test Reason : SOB Blood Pressure : / mmHG Vent. Rate : 117 BPM Atrial Rate : 117 BPM P-R Int : 128 ms QRS Dur : 086 ms QT Int : 322 ms P-R-T Axes : 096 041 047 degrees QTc Int : 449 ms Poor data quality Sinus tachycardia Otherwise normal ECG When compared with ECG of 08-FEB-2013 13:13, No significant change was found Referred By: Generic ED Physician Electronically Signed By:Tre Grace
[2024-03-07 16:27] LABS: MANUAL DIFF FLAG NO
[2024-03-07 16:34] LABS: Basophils Percent Auto 0.2 % (0-2); Eosinophils Absolute Auto 0.4 X10*3/uL (0.0-0.4); Eosinophils Percent Auto 3.5 % (0-4); Hemoglobin 15.6 g/dl (14.0-18.0); Imm Gran Abs Auto 0.08 X10*3/uL (0.00-0.03); Imm Gran Pct Auto 0.6 % (0.0-0.4); Lymphocytes Absolute Auto 1.2 X10*3/uL (1.2-4.9); Lymphocytes Percent Auto 9.6 % (20-40); Mean Corpuscular HGB Conc 33.9 g/dl (31.0-36.0); Mean Corpuscular Hemoglobin 30.4 pg (27.0-33.0); Mean Corpuscular Volume 89.7 fL (80.0-98.0); Mean Platelet Volume 8.9 fL (9.4-12.4); Monocytes Absolute Auto 1.2 X10*3/uL (0.1-1.2); Monocytes Percent Auto 9.9 % (2-11); Neutrophils Absolute Auto 9.4 x10*3/uL (2.0-8.3); Neutrophils Percent Auto 76.2 % (45-73); Platelet Count 200 X10*3/uL (160-400); Red Blood Count 5.13 X10*6/uL (4.60-5.80); Red Cell Distribution Width 14.6 % (11.0-16.0); White Blood Count 12.4 X10*3/uL (4.8-10.8)
[2024-03-07 16:41] LABS: D Dimer High Sensitivity 823 NG/ML
[2024-03-07 16:52] LABS: INTERNATIONAL NORM RATIO 1.1 (0.9-1.1); Prothrombin Time 12.5 SEC (10.9-12.4)
[2024-03-07 16:55] LABS: Partial Thromboplastin Time 30.1 SEC (26.0-36.8)
[2024-03-07 16:57] LABS: Alanine Aminotransferase 12 U/L (0-40); Albumin Level 3.9 g/dL (3.5-5.0); Alkaline Phosphatase 155 U/L (39-117); Anion Gap 16 (12-20); Aspartate Amino Transferase 26 U/L (5-37); Bilirubin Total 0.6 mg/dL (0.0-1.0); Blood Urea Nitrogen 30 mg/dL (9-16); Calcium 9.9 mg/dL (8.4-10.2); Carbon Dioxide 22 mmol/L (22-29); Chloride 106 mmol/L (96-108); Creatinine Clr Calc Pharmacy 99.3; Estimated Glomerular Filt Rate > 60; Ethanol < 10 mg/dL; Glucose Random 101 mg/dL (60-115); Potassium 3.9 mmol/L (3.3-5.1); Sodium 140 mmol/L (135-145); Total Protein 7.5 g/dL (6.5-8.0)
[2024-03-07 17:12] LABS: Influenza A PCR NEGATIVE (Negative); Influenza B PCR NEGATIVE (Negative); Resp Syncy Virus RNA Qual PCR NEGATIVE (Negative); SARS COV2 PCR INHOUSE NEGATIVE (Negative)
[2024-03-07 17:22] LABS: B Type Natriuretic Peptide 10 pg/mL (<100)
--- NOTE | 2024-03-07 17:24 | ED.GENADULT ---
HPI - General Adult General Chief complaint: Dyspnea Stated complaint: sob,low 02 sat, fell 03/04 Time Seen by Provider: 03/07/24 17:52 Source: patient Mode of arrival: ambulatory Limitations: no limitations History of Present Illness ED Provider: HPI narrative: Patient's history of COPD ex-smoker comes here for increased shortness a breath started 3 days ago use his nebulizer treatment without much relief no chest pain no palpitation no fever no chills patient does have a cough and lately is getting mucopurulent phlegm no fever no chills patient also complaining of pain in the right side of the chest for last few days patient is saturating 82% at room air not on oxygen at home Related Data Home Medications ?Medication ?Instructions ?Recorded ?Confirmed multivitamin (Daily Multi-Vitamin 1 tab PO DAILY 09/12/20 03/07/24 tablet) pravastatin 80 mg tablet 80 mg PO BEDTIME 09/02/22 03/07/24 Previous Rx's ?Medication ?Instructions ?Recorded albuterol sulfate 90 mcg/actuation 2 puff PO Q4H PRN for wheezing 11/04/23 aerosol inhaler #8.5 grams Breo Ellipta 200 mcg-25 mcg/dose 1 ea PO DAILY #60 ea 03/07/24 powder for inhalation (fluticasone furoate-vilanterol) Incruse Ellipta 62.5 mcg/actuation 1 inh PO DAILY #30 ea 03/07/24 powder for inhalation (umeclidinium) Allergies Allergy/AdvReac Type Severity Reaction Status Date / Time Penicillins [PENICILLINS] Allergy Intermediate SWELLING Verified 03/07/24 15:34 Sulfa (Sulfonamide Allergy Mild RASH Verified 03/07/24 15:34 Antibiotics) [Sulfa (Sulfonamides)] Review of Systems Review of Systems: Yes all other systems are reviewed and are negative PMF Past Medical History Medical History (Updated 03/08/24 @ 14:53 by Miguel Dodge MD) COPD exacerbation Upper respiratory infection COPD (chronic obstructive pulmonary disease) Surgical History (Updated 03/08/24 @ 13:53 by Celi Cordero PA-C) History of arthroscopy of left knee History of back surgery History of total replacement of both hip joints Social History Social History Alcohol intake: current Alcohol intake frequency: a few times a month Alcohol type: beer Patient Tobacco Use Status: Former Tobacco user Smoked in Last 30 Days: No Use of substances other than those prescribed or required for medical reasons: No Advance Directives: No Advance Directives Information Provided: No Nutrition Risks: No Nutritional Risk service: Yes Physical Exam ED Vital Signs: Vital Signs - 24 hr 03/07/24 19:50 03/07/24 19:52 03/07/24 20:27 Temperature 97.6 F 98.3 F Pulse Rate 110 H 109 H 120 H Respiratory Rate 20 20 22 H Blood Pressure 127/80 127/63 Pulse Oximetry 97 96 Oxygen Delivery Method Room Air Nasal Cannula Oxygen Flow Rate 2 2 BMI result Body Mass Index 29.0 Appearance: Alert. Oriented X3. Moderate respiratory distress Eyes: No pallor or icterus ENT: Pharynx normal. Oral Mucosa moist Neck: Normal inspection. Neck supple. CVS: Normal heart rate and rhythm. Pulses normal. Respiratory: Motor respiratory distress. Equal air entry bilateral, bilateral prolonged expiration Abdomen: Soft and nontender. Bowel sounds are present, no mass palpable, no CVA tenderness Skin: Skin warm and dry. Normal skin color. Normal skin turgor. Extremities: No lower extremity edema. No calf tenderness Neuro: Oriented X 3. No motor deficit. No sensory deficit.No cerebellar signs , cranial nerves II-XII intact Course Course Course Narrative: RME: 79-year-old male was sent from primary care for O2 saturation 82%. Mother time patient came to our ED vital signs were stable O2 sat was 95 percent on room air. Lungs clear. labs, EKG, and imaging ordered by Nurse. Chest xry ordered. Medications Administered Generic Name Dose Route Start Last Admin Trade Name Freq PRN Reason Stop Dose Admin Albuterol Sulfate 2.5 mg 03/08/24 08:00 03/08/24 15:36 Albuterol Sulfate (0.083%) 2.5 Mg/3 Ml Vial.Neb INHALE 2.5 mg RQ4H WHILE AWAKE GUS Administration Azithromycin 500 mg 03/08/24 09:00 03/08/24 09:29 Azithromycin 500 Mg Tablet PO 500 mg DAILY GUS Administration Docusate Sodium 100 mg 03/08/24 09:00 03/08/24 09:29 Docusate Sodium 100 Mg Capsule PO 100 mg BID GUS Administration Enoxaparin Sodium 40 mg 03/08/24 09:00 03/08/24 09:29 Enoxaparin Sodium 40 Mg/0.4 Ml Syringe SUBCUT 40 mg DAILY GUS Administration Ipratropium [place] 0.5 mg 03/08/24 08:00 03/08/24 15:37 Ipratropium [place] 0.5 Mg/2.5 Ml Solution INHALE 0.5 mg RQ4H WHILE AWAKE GUS Administration Methylprednisolone Sodium Succinate 40 mg 03/08/24 09:00 03/08/24 09:29 Methylprednisolone Sod Succ 40 Mg/Ml Vial IVPUSH 40 mg BID GUS Administration Multivitamins/Vitamin C 1 tab 03/08/24 09:00 03/08/24 09:29 Multivitamin Tablet PO 1 tab DAILY GUS Administration Sodium Chloride 3 ml 03/08/24 00:00 03/08/24 09:30 0.9 % Sodium Chloride Flush 3 Ml Syringe IVFLUSH 3 ml QSHIFT GUS Administration Discontinued Medications Generic Name Dose Route Start Last Admin Trade Name Freq PRN Reason Stop Dose Admin Ceftriaxone Sodium 1 gm 03/07/24 18:17 03/07/24 18:43 Ceftriaxone Sodium 1 Gm Vial IVPUSH 03/07/24 18:18 1 gm ONCE ONE Administration Albuterol Sulfate 2.5 mg/ 0 mg 03/07/24 19:12 03/07/24 19:49 Albuterol/Ipratropium 3 ml INHALE 03/07/24 19:13 1 dose ONCE ONE Administration Sodium Chloride 1,000 mls @ 999 mls/hr 03/07/24 18:14 03/07/24 20:43 Ns IV 03/07/24 19:14 Infused .Q1H1M ONE Infusion Azithromycin 500 mg/ Sodium 250 mls @ 125 mls/hr 03/07/24 18:17 03/07/24 20:43 Chloride IV 03/07/24 20:16 Infused ONCE ONE Infusion Iohexol 65 ml 03/07/24 18:58 03/07/24 18:58 Iohexol 350 Mg/Ml 100 Ml Infus..Btl IV 03/07/24 18:59 65 ml ONCE ONE Administration Morphine Sulfate 4 mg 03/08/24 00:32 03/08/24 01:00 Morphine Sulfate 4 Mg/Ml Cartridge IVPUSH 03/08/24 00:33 4 mg ONCE ONE Administration Protocol Ondansetron HCl 4 mg 03/08/24 00:32 03/08/24 01:00 Ondansetron Hcl 4 Mg/2 Ml Vial IVPUSH 03/08/24 00:33 4 mg ONCE ONE Administration Medical Decision Making Medical Decision Making [facility] Narrative: Patient's COPD with hypoxia CTA chest showed to set to mass right 3rd rib likely malignancy no evidence of PE will admit patient for lung cancer with hypoxia with COPD patient has a elevated lactic acid level secondary to nebulizing treatment no evidence of pneumonia in the CT scan patient was given Zithromax and Rocephin on arrival Differential Diagnosis Differential Diagnoses: The differential diagnosis associated with the presentation includes PE/COPD/CHF Admission/Observation Consideration of admission/observation: Escalation of care including admission/observation considered Consult Healthcare Provider Management of the patient was discussed with: Hospitalist Lab Data [facility] Lab Attestation statement: I reviewed the patient's lab results. 03/08/24 04:44 03/08/24 04:44 Labs: Lab Results 03/07/24 03/07/24 Range/Units 16:22 19:36 WBC 12.4 H (4.8-10.8) X10*3/uL RBC 5.13 (4.60-5.80) X10*6/uL Hgb 15.6 (14.0-18.0) g/dl Hct 46.0 (42.0-52.0) % MCV 89.7 (80.0-98.0) fL MCH 30.4 (27.0-33.0) pg MCHC 33.9 (31.0-36.0) g/dl RDW 14.6 (11.0-16.0) % Plt Count 200 (160-400) X10*3/uL MPV 8.9 L (9.4-12.4) fL Immature Gran % (Auto) 0.6 H (0.0-0.4) % Neut % (Auto) 76.2 H (45-73) % Lymph % (Auto) 9.6 L (20-40) % [place] % (Auto) 9.9 (2-11) % Eos % (Auto) 3.5 (0-4) % Baso % (Auto) 0.2 (0-2) % Lymph # (Auto) 1.2 (1.2-4.9) X10*3/uL [place] # (Auto) 1.2 (0.1-1.2) X10*3/uL Eos # (Auto) 0.4 (0.0-0.4) X10*3/uL Baso # (Auto) 0.0 (0.0-0.2) X10*3/uL Abs Immat Gran (auto) 0.08 H (0.00-0.03) X10*3/uL Absolute Neuts (auto) 9.4 H (2.0-8.3) x10*3/uL Absolute Nucleated RBC 0.000 (0.0-0.012) X10*3/uL Nucleated RBC % (auto) 0.0 (0.0-0.2) /100WBC PT 12.5 H (10.9-12.4) SEC INR 1.1 (0.9-1.1) APTT 30.1 (26.0-36.8) SEC D-Dimer High Sensitivty 823 NG/ML Sodium 140 (135-145) mmol/L Potassium 3.9 (3.3-5.1) mmol/L Chloride 106 (96-108) mmol/L Carbon Dioxide 22 (22-29) mmol/L Anion Gap 16 (12-20) BUN 30 H (9-16) mg/dL Creatinine 0.74 (0.5-1.4) mg/dL Estim Creat Clear Calc 99.3 Estimated GFR > 60 Random Glucose 101 (60-115) mg/dL Lactic Acid 4.2 H* (0.5-2.0) mmol/L Calcium 9.9 (8.4-10.2) mg/dL Total Bilirubin 0.6 (0.0-1.0) mg/dL AST 26 (5-37) U/L ALT 12 (0-40) U/L Alkaline Phosphatase 155 H (39-117) U/L Troponin I High Sens < 2.7 (<3.5-35.0) ng/L B-Natriuretic Peptide 10 (<100) pg/mL Total Protein 7.5 (6.5-8.0) g/dL Albumin 3.9 (3.5-5.0) g/dL Ethyl Alcohol < 10 mg/dL Influenza Type A (PCR) NEGATIVE (Negative) Influenza Type B (PCR) NEGATIVE (Negative) RSV RNA Qual (PCR) NEGATIVE (Negative) SARS-CoV-2 RNA (RT-PCR) NEGATIVE (Negative) Independent Interpretation I performed an independent interpretation of an: EKG and CT Scan Interpretation: Sinus tachycardia with a heart rate 170 beats per minute normal interval normal axis no acute STT wave changes no ischemia Radiology Impression Discussion of test interpretation with radiology: I have reviewed the radiologist's reading. Radiologist Impression: [address] [address] [address] Scan Report Signed Patient: Jaren Up MR#: [id number] : 1945 Acct:[id number] Age/Sex: 79 / M ADM Date: 03/07/24 Loc: [place] [address]: Subhash Welch MD Ordering Physician: Jeffrey Ellsworth MD Date of Service: 03/07/24 Procedure(s): CT angio chest PE protocol Accession Number(s): [id number] cc: Koby Peña MD; Jeffrey Ellsworth MD~ EXAMINATION: CTA CHEST CLINICAL INFORMATION: Lung mass versus pulmonary emboli COMPARISON: Chest radiograph earlier today TECHNIQUE: Multidetector volumetric CT imaging of the chest was obtained both before as well as after the administration of 65 mL of Omnipaque 350 intravenous contrast without immediate adverse reactions. Axial MIP volume rendering provided. Sagittal and coronal reformatted images were obtained. Additional 2-D coronal and sagittal reformatted images and axial 3-D maximum intensity projection MIP images are generated on the CT workstation. This CT examination was performed using dose optimization techniques as appropriate, variously including the following: *Automated exposure control *Adjustment of mA and/or kV according to patient size (this includes techniques or standardized protocols for targeted exams where dose is matched to indication/reason for exam; i.e. extremities or head) *Use of iterative reconstruction technique DLP: 449 mGy-cm VASCULAR FINDINGS: No pulmonary emboli are seen. NONVASCULAR FINDINGS: LUNGS: Severe emphysematous changes are present throughout the lungs. A saber-sheath trachea is present. Subpleural reticulation is present.. Multiple masslike areas are seen in the left lower lobe (7:268 and 306) with the largest measuring about 2.2 cm. MEDIASTINUM: Some small mediastinal lymph nodes are seen measuring 1.0 cm in short axis dimension. CORONARY ARTERY CALCIFICATION: Absent PLEURA: There is no pleural effusion. No pleural mass or thickening. AXILLA/CHEST WALL: There is a 2.1 x 2.8 x 3.3 cm water density subcutaneous mass, likely a sebaceous cyst . No axillary lymphadenopathy. There is a right chest wall mass measuring 3.8 x 5.5 x 3.8 cm with associated destruction of the right third anterolateral rib. There is a subpectoral right-sided lymph node present adjacent to the chest wall mass measuring 1.9 x 1.5 x 2.3 cm (5:20 and 8:31). UPPER ABDOMEN: A small hiatal hernia is present. The adrenal glands are unremarkable. OSSEOUS STRUCTURES: Destructive lesion of the right third rib as described above. There is a compression fracture involving the L1 vertebral body. No other bony destructive lesions are seen. CT/CT angio chest PE protocol IMPRESSION: 1. No evidence of pulmonary emboli. 2. Severe emphysema with multiple masslike areas in the left lower lobe. 3. Right chest wall mass with associated destruction of the right third rib. 4. Right subpectoral lymphadenopathy. 5. L1 compression fracture. 6. Above-mentioned findings are concerning for malignancy. Biopsy of the destructive chest wall mass could easily be performed under CT guidance. 7. Other incidental findings as described above. Fleischner guidelines were followed. Electronically signed by: Clarence Block MD 03/07/2024 11:20 PM [facility] [place] Discharge Clinical Impression: Acute exacerbation of chronic obstructive airways disease, Acute hypoxemic respiratory failure, Lung cancer Patient Disposition: Admitted As Inpatient
[2024-03-07 17:33] LABS: Troponin-I High Sensitivity < 2.7 ng/L (<3.5-35.0)
[2024-03-07] MEDS: 0.9 % Sodium Chloride 1,000 ML 999 ML IV (18:42)
[2024-03-07] MEDS: Azithromycin 500 MG in 0.9 % Sodium Chloride 250 ML 125 MG IV (18:43)
[2024-03-07] MEDS: cefTRIAXone sodium 1 GM VIAL IVPUSH (18:43)
[2024-03-07] MEDS: iohexoL 350 MG/ML 100 ML INFUS..BTL 65 ML IV (18:58)
[2024-03-07] MEDS: Albuterol Sulfate 2.5 MG, Albuterol/Iprat 2.5/0.5MG 3 ML 3 ML INHALE (19:49)
[2024-03-07 19:50] VITALS: PULSE 110; RESP 20; O2SAT 95
[2024-03-07 19:52] VITALS: BP 127/80; PULSE 109; RESP 20; TEMP 36.4; O2SAT 97
[2024-03-07 20:11] LABS: Lactic Acid 4.2 mmol/L (0.5-2.0)
--- NOTE | 2024-03-07 20:19 | PC.NURSE ---
assumed care of pt at 1900 - MD Ellsworth aware that previous RN pushed iv abx prior to blood cultures being collected
[2024-03-07 20:27] VITALS: BP 127/63; PULSE 120; RESP 22; TEMP 36.8; O2SAT 96
--- NOTE | 2024-03-07 21:09 | PHA.MEDREC ---
Addendum entered by Carolyn Joseph RPh 03/07/24 21:11: Reviewed by [facility] Original Note: Pharmacy Consult ? Medication Reconciliation Pharmacy has completed the medication reconciliation. Spoke to patent to confirm med list.
[2024-03-07 21:42] LABS: Reflex Lactate? Lactic Acid Added
[2024-03-07 22:43] VITALS: BP 125/66; PULSE 125; RESP 18; TEMP 36.6; O2SAT 95
[2024-03-07 22:50] LABS: ~Lactic Acid-LAB USE ONLY 2.2 mmol/L (0.5-2.0)
[2024-03-08] VITALS (11 sets, daily range): BP systolic 97–153; BP diastolic 50–76; PULSE 74–120; RESP 16–20; TEMP 36.6–37.3; O2SAT 91–98
[2024-03-08 00:27] LABS: Reflex Lactate? 2 Y
[2024-03-08] MEDS: Morphine Sulfate 4 MG/ML CARTRIDGE IVPUSH (01:00)
[2024-03-08] MEDS: ondansetron HCL 4 MG/2 ML VIAL IVPUSH (01:00)
[2024-03-08] MEDS: 0.9 % Sodium Chloride Flush 3 ML SYRINGE IVFLUSH ×3 (01:03→17:18)
[2024-03-08 01:57] LABS: ~Lactic Acid-LAB USE ONLY 1.2 mmol/L (0.5-2.0)
--- NOTE | 2024-03-08 04:50 | PM.IMHP ---
History of Present Illness Date of Service: 04/07/24 Attending physician on admission: Subhash Welch Chief Complaint: Shortness of breath x 3 days Patient is a 79 year old white male with underlying COPD who presents to the ED from home complaining of worsening shortness of breath over the last 3 days. He took his breathing treatments with no effects and so came in for evaluation. He admits to having a wet cough but denies any chest pain or wheezing. On arrival to the ED, he was found to be hypoxic with SpO2 of 82% and was placed on supplemental oxygen and also started on IV steroids and received breathing treatments with some improvement. He however still requires oxygen and his breathing is not yet backl to his baseline so admission has been requested for continued care. Review of Systems Review of Systems: 12 system review was completed and is as noted above in the HPI otherwise the rest of the system review is negative. [facility] Medical History COPD exacerbation Upper respiratory infection COPD (chronic obstructive pulmonary disease) Pertinent family history: Reviewed with patient and not relevant to current admission. Social History Alcohol intake: current Alcohol intake frequency: a few times a month Alcohol type: beer Patient Tobacco Use Status: Former Tobacco user Smoked in Last 30 Days: No Use of substances other than those prescribed or required for medical reasons: No Advance Directives: No Advance Directives Information Provided: No Meds Allergies Allergy/AdvReac Type Severity Reaction Status Date / Time Penicillins [PENICILLINS] Allergy Intermediate SWELLING Verified 03/07/24 15:34 Sulfa (Sulfonamide Allergy Mild RASH Verified 03/07/24 15:34 Antibiotics) [Sulfa (Sulfonamides)] Home Medications ?Medication ?Instructions ?Recorded ?Confirmed ?Last Taken ?Type multivitamin (Daily Multi-Vitamin 1 tab PO DAILY 09/12/20 03/07/24 03/07/24 History tablet) pravastatin 80 mg tablet 80 mg PO BEDTIME 09/02/22 03/07/24 03/07/24 History Physical Exam Vital Signs and Narrative: Vital Signs: Last Vital Signs Temp 97.8 F 03/07/24 22:43 Pulse 97 03/08/24 00:57 Resp 18 03/08/24 01:00 BP 131/75 03/08/24 00:57 Pulse Ox 97 03/08/24 00:57 O2 Del Method Nasal Cannula 03/08/24 00:57 O2 Flow Rate 2 03/08/24 00:57 Oxygen Flow Rate 2 03/07/24 15:31 BMI result Body Mass Index 29.0 General: Elderly WM in bed. Awake and alert and in no obvious distress. Psychiatric: Awake and alert. Mood and affect not assessed. HEENT: Normocephalic, atraumatic. No pallor or jaundice. Dry oral mucus membranes Neck: Supple. No JVD Lungs: Diminished BS bilaterally. No rales, rhonchi or wheezes. Heart: RRR. Normal s1/s2. No murmurs, rubs or gallops. No peripheral edema. Abdomen: Scaphoid, Soft, non-tender. Normoactive bowel sounds. No visceromegaly. Genitourinary: Deferred. Back/Spine/Pelvis: Deferred Skin: Warm, dry, well perfused. Normal turgor. No mottling. Normal capillary response. Neurologic: Awake and alert. Well oriented. ?No obvious neurological deficits. CN II - XII grossly normal. . Extremities: Normal muscle bulk, tone and power. No obvious deformities. No peripheral edema. Good peripheral pulses. Results Labs 03/07/24 16:22 03/07/24 16:22 Labs: Laboratory Results - last 24 hr 03/07/24 03/07/24 03/07/24 16:22 19:36 22:24 MCV 89.7 MCH 30.4 MCHC 33.9 RDW 14.6 Plt Count 200 MPV 8.9 L Immature Gran % (Auto) 0.6 H Neut % (Auto) 76.2 H Lymph % (Auto) 9.6 L [place] % (Auto) 9.9 Eos % (Auto) 3.5 Baso % (Auto) 0.2 Lymph # (Auto) 1.2 [place] # (Auto) 1.2 Eos # (Auto) 0.4 Baso # (Auto) 0.0 Abs Immat Gran (auto) 0.08 H Absolute Neuts (auto) 9.4 H Absolute Nucleated RBC 0.000 Nucleated RBC % (auto) 0.0 Hold Purple Top SEE NOTE PT 12.5 H INR 1.1 APTT 30.1 D-Dimer High Sensitivty 823 Anion Gap 16 Estim Creat Clear Calc 99.3 Estimated GFR > 60 Random Glucose 101 Lactic Acid 4.2 H* Lactic Acid F/U @ 2Hr 2.2 H* Lactic Acid F/U @ 4Hr Calcium 9.9 Total Bilirubin 0.6 AST 26 ALT 12 Alkaline Phosphatase 155 H Troponin I High Sens < 2.7 B-Natriuretic Peptide 10 Total Protein 7.5 Albumin 3.9 Hold Yellow Top See Note Ethyl Alcohol < 10 Influenza Type A (PCR) NEGATIVE Influenza Type B (PCR) NEGATIVE RSV RNA Qual (PCR) NEGATIVE SARS-CoV-2 RNA (RT-PCR) NEGATIVE 03/08/24 01:36 MCV MCH MCHC RDW Plt Count MPV Immature Gran % (Auto) Neut % (Auto) Lymph % (Auto) [place] % (Auto) Eos % (Auto) Baso % (Auto) Lymph # (Auto) [place] # (Auto) Eos # (Auto) Baso # (Auto) Abs Immat Gran (auto) Absolute Neuts (auto) Absolute Nucleated RBC Nucleated RBC % (auto) Hold Purple Top PT INR APTT D-Dimer High Sensitivty Anion Gap Estim Creat Clear Calc Estimated GFR Random Glucose Lactic Acid Lactic Acid F/U @ 2Hr Lactic Acid F/U @ 4Hr 1.2 Calcium Total Bilirubin AST ALT Alkaline Phosphatase Troponin I High Sens B-Natriuretic Peptide Total Protein Albumin Hold Yellow Top Ethyl Alcohol Influenza Type A (PCR) Influenza Type B (PCR) RSV RNA Qual (PCR) SARS-CoV-2 RNA (RT-PCR) Imaging Radiologist's Impressions: Impressions Chest X-Ray 03/07/24 15:45 IMPRESSION: Left lower lobe pneumonia. Right upper lobe density may represent consolidation versus mass. Recommend short interval follow-up. Electronically signed by: Melvi Wong MD 03/07/2024 04:48 PM EST RP Shoulder X-Ray 03/07/24 16:40 IMPRESSION: Osteoarthritis Electronically signed by: Pierce Trevino MD 03/07/2024 05:37 PM EST RP Chest CTA 03/07/24 18:49 IMPRESSION: 1. No evidence of pulmonary emboli. 2. Severe emphysema with multiple masslike areas in the left lower lobe. 3. Right chest wall mass with associated destruction of the right third rib. 4. Right subpectoral lymphadenopathy. 5. L1 compression fracture. 6. Above-mentioned findings are concerning for malignancy. Biopsy of the destructive chest wall mass could easily be performed under CT guidance. 7. Other incidental findings as described above. Fleischner guidelines were followed. Electronically signed by: Clarence Block MD 03/07/2024 11:20 PM [facility] Assessment and Plan (1) Acute hypoxemic respiratory failure: Status: Acute - found to be hypoxic with SpO2 of 82% on room air - improved with supplemental Oxygen - treat underlying COPD with steroids and Duo Neb updrafts - consider Azithromycin for its pleiotropic effects (2) Acute exacerbation of chronic obstructive airways disease: Status: Acute - presentation concerning for COPD exacerbation - still with diminished breath sounds though not wheezing as much - continue current treatment (steroids, Albuterol, Ipratropium) - also add Azithromycin given productive cough Total time managing care of this patient today: 75 minutes. Quality Stroke Does the patient have a stroke diagnosis?: No VTE Prior VTE?: No VTE Risk Level:: Medical - moderate - high VTE Device Contraindication: Treatment Not Indicated VTE Drug Contraindication: N/A - Med Ordered
[2024-03-08 05:07] LABS: MANUAL DIFF FLAG NO
[2024-03-08 05:08] LABS: Basophils Percent Auto 0.4 % (0-2); Eosinophils Absolute Auto 0.4 X10*3/uL (0.0-0.4); Eosinophils Percent Auto 4.5 % (0-4); Hematocrit 39.5 % (42.0-52.0); Hemoglobin 13.1 g/dl (14.0-18.0); Imm Gran Abs Auto 0.03 X10*3/uL (0.00-0.03); Imm Gran Pct Auto 0.3 % (0.0-0.4); Lymphocytes Absolute Auto 0.9 X10*3/uL (1.2-4.9); Mean Corpuscular HGB Conc 33.2 g/dl (31.0-36.0); Mean Corpuscular Hemoglobin 30.2 pg (27.0-33.0); Mean Platelet Volume 9.1 fL (9.4-12.4); Monocytes Percent Auto 10.9 % (2-11); Neutrophils Percent Auto 73.9 % (45-73); Platelet Count 183 X10*3/uL (160-400); Red Blood Count 4.34 X10*6/uL (4.60-5.80); Red Cell Distribution Width 14.6 % (11.0-16.0); White Blood Count 9.4 X10*3/uL (4.8-10.8)
[2024-03-08 05:29] LABS: Anion Gap 12 (12-20); Blood Urea Nitrogen 22 mg/dL (9-16); Calcium 8.6 mg/dL (8.4-10.2); Carbon Dioxide 23 mmol/L (22-29); Chloride 111 mmol/L (96-108); Creatinine Clr Calc Pharmacy 108.1; Estimated Glomerular Filt Rate > 60; Glucose Random 102 mg/dL (60-115); Potassium 3.8 mmol/L (3.3-5.1); Sodium 142 mmol/L (135-145)
[2024-03-08] MEDS: Albuterol Sulfate (0.083%) 2.5 MG/3 ML VIAL.NEB INHALE ×4 (08:13→21:06)
[2024-03-08] MEDS: Ipratropium Bromide 0.5 MG/2.5 ML SOLUTION INHALE ×4 (08:13→21:06)
--- NOTE | 2024-03-08 09:15 | MHC.CM.PN ---
PT REPORTS HE LIVES ALONE AND IS INDEPENDENT WITH CARE HE HAS NO DME AND NO SERVICES COPY OF HCP REQUESTED PCP: JARAD PAYNE IMM DELIVERED DCP: HOME NO SERVICES VIA PRIVATE TRANSPORT
[2024-03-08] MEDS: methylPREDNISolone Sod Succ 40 MG/ML VIAL IVPUSH ×2 (09:29→22:00)
[2024-03-08] MEDS: Multivitamin TABLET 1 TAB PO (09:29)
[2024-03-08] MEDS: Azithromycin 500 MG TABLET PO (09:29)
[2024-03-08] MEDS: Enoxaparin Sodium 40 MG/0.4 ML SYRINGE SUBCUT (09:29)
[2024-03-08] MEDS: Docusate Sodium 100 MG CAPSULE PO ×2 (09:29→22:00)
--- NOTE | 2024-03-08 10:14 | PC.NURSE ---
took over pt care from kyler at 9am, currently patient is A&Ox3, rr equal/non labored- lungs diminished throughout,pt is not home o2 dependent and is on 2L NC while here due to low O2 sat without it. presently pt states he has no pain but if he gets moving around his rt shoulder hurts at times. pt states he drinks a 12 pk every weekend audit-c score was [address] August.
--- NOTE | 2024-03-08 10:36 | PC.NURSE ---
notified Dr. August via tiger text of pts audit-c score, pt to have a consult with addiction and ciwa is being added by provider.
--- NOTE | 2024-03-08 12:25 | HO.THORCONS ---
History of Present Illness Consult details Consult date: 03/08/24 Requesting physician: Maria E August Narrative: Mr. Jaren Up is a 79 year old male with PMH significant for COPD, former smoker. His COPD is moderately controlled at baseline however he was seen at the pulmonology office yesterday for worsening SOB for three days with productive cough. He has been using albuterol with minimal effect. He denies sick contacts, chills, or fever. He was found to be hypoxic and tachycardic in the office and was therefore brought to the ED for further evaluation. Work up included CBC, BMP, LFTs which was significant for a mild leukocytosis. He had a lactic acidosis. CTA was performed which showed no PE but severe emphysema with multiple masslike areas in the left lower lobe, right chest wall mass with associated destruction of the right third rib, right subpectoral lymphadenopathy. His O2 sat improved with supplemental O2, IV steroids and breathing treatments. He was admitted to the medical service for further treatment of the COPD exacerbation and started on Azithromycin. Thoracic surgery was consulted. He reports multiple falls in the past sustaining right rib fractures 4 times. He reports mild right axillary/lateral chest pain for the past few months which he attributed to his coughing fits and straining a muscle. COUNTS INCLUDE 234 BEDS AT THE [facility] Past Medical History Medical History (Updated 03/07/24 @ 23:46 by Jeffrey Ellsworth MD) COPD exacerbation Upper respiratory infection COPD (chronic obstructive pulmonary disease) Surgical History Surgical History (Updated 03/08/24 @ 13:53 by Celi Cordero PA-C) History of arthroscopy of left knee History of back surgery History of total replacement of both hip joints Social History Social History Alcohol intake: current Alcohol intake frequency: a few times a month Alcohol type: beer Patient Tobacco Use Status: Former Tobacco user Smoked in Last 30 Days: No Use of substances other than those prescribed or required for medical reasons: No Advance Directives: No Advance Directives Information Provided: No Nutrition Risks: No Nutritional Risk service: Yes Meds Allergies Allergy/AdvReac Type Severity Reaction Status Date / Time Penicillins [PENICILLINS] Allergy Intermediate SWELLING Verified 03/07/24 15:34 Sulfa (Sulfonamide Allergy Mild RASH Verified 03/07/24 15:34 Antibiotics) [Sulfa (Sulfonamides)] Active Medications: Current Medications Acetaminophen (Acetaminophen 325 Mg Tablet) 650 mg PO Q6H PRN PRN Reason: Pain, Mild (Pain Scale 1-3), fever or headache Al Hydroxide/Mg Hydroxide (Magnesium Hydrox/Alum Hydrox 30 Ml Oral.Susp) 30 ml PO Q4H PRN PRN Reason: Heartburn Albuterol Sulfate (Albuterol Sulfate (0.083%) 2.5 Mg/3 Ml Vial.Neb) 2.5 mg INHALE RQ4H WHILE AWAKE COUNTS INCLUDE 234 BEDS AT THE [facility] Last Admin: 03/08/24 11:31 Dose: 2.5 mg Albuterol/Ipratropium (Albuterol/Iprat 2.5/0.5mg 3 Ml Ampul.Neb) 3 ml INHALE Q4H PRN PRN Reason: Shortness of Breath/Wheezing Azithromycin (Azithromycin 500 Mg Tablet) 500 mg PO DAILY COUNTS INCLUDE 234 BEDS AT THE [facility] Last Admin: 03/08/24 09:29 Dose: 500 mg Benzonatate (Benzonatate 100 Mg Capsule) 100 mg PO TID PRN PRN Reason: Cough Docusate Sodium (Docusate Sodium 100 Mg Capsule) 100 mg PO BID COUNTS INCLUDE 234 BEDS AT THE [facility] Last Admin: 03/08/24 09:29 Dose: 100 mg Enoxaparin Sodium (Enoxaparin Sodium 40 Mg/0.4 Ml Syringe) 40 mg SUBCUT DAILY COUNTS INCLUDE 234 BEDS AT THE [facility] Last Admin: 03/08/24 09:29 Dose: 40 mg Ipratropium [place] (Ipratropium [place] 0.5 Mg/2.5 Ml Solution) 0.5 mg INHALE RQ4H WHILE AWAKE COUNTS INCLUDE 234 BEDS AT THE [facility] Last Admin: 03/08/24 11:31 Dose: 0.5 mg Magnesium Hydroxide (Milk Of Magnesia 30 Ml Oral.Susp) 30 ml PO DAILY PRN PRN Reason: Constipation Melatonin (Melatonin 3 Mg Tablet) 6 mg PO BEDTIME PRN PRN Reason: Insomnia Methylprednisolone Sodium Succinate (Methylprednisolone Sod Succ 40 Mg/Ml Vial) 40 mg IVPUSH BID COUNTS INCLUDE 234 BEDS AT THE [facility] Last Admin: 03/08/24 09:29 Dose: 40 mg Multivitamins/Vitamin C (Multivitamin Tablet) 1 tab PO DAILY COUNTS INCLUDE 234 BEDS AT THE [facility] Last Admin: 03/08/24 09:29 Dose: 1 tab Ondansetron HCl (Ondansetron Hcl 4 Mg/2 Ml Vial) 4 mg IVPUSH Q8H PRN PRN Reason: Nausea and Vomiting Pravastatin Sodium (Pravastatin Sodium 80 Mg Tablet) 80 mg PO BEDTIME GUS Sodium Chloride (0.9 % Sodium Chloride Flush 3 Ml Syringe) 3 ml IVFLUSH QSHIFT GUS Last Admin: 03/08/24 09:30 Dose: 3 ml Home Medications ?Medication ?Instructions ?Recorded ?Confirmed ?Last Taken ?Type multivitamin (Daily Multi-Vitamin 1 tab PO DAILY 09/12/20 03/07/24 03/07/24 History tablet) pravastatin 80 mg tablet 80 mg PO BEDTIME 09/02/22 03/07/24 03/07/24 History Physical Exam Vital Signs: Vital Signs: Last Vital Signs Temp 98.4 F 03/08/24 08:38 Pulse 74 03/08/24 11:32 Resp 17 03/08/24 11:32 BP 107/56 L 03/08/24 08:38 Pulse Ox 96 03/08/24 08:38 O2 Del Method Room Air 03/08/24 08:38 O2 Flow Rate 2 03/08/24 05:40 Oxygen Flow Rate 2 03/07/24 15:31 BMI result Body Mass Index 29.0 Const: General: comfortable and no acute distress Orientation/consciousness: patient oriented x3 Chest: Other: right anterior and lateral chest wall/axilla nontender, no palpable masses mobile, soft mass of mid sternum consistent with lipoma Resp: Effort & Inspection: normal respiratory effort, able to speak in complete sentences, not labored, no respiratory distress and no use of accessory muscles Skin: General skin exam: no rashes or lesions noted Neuro: General: patient oriented x3 and moves all extremities Results Labs 03/08/24 04:44 03/08/24 04:44 Labs: Abnormal lab results 03/07/24 03/07/24 03/07/24 Range/Units 16:22 19:36 22:24 WBC 12.4 H (4.8-10.8) X10*3/uL RBC (4.60-5.80) X10*6/uL Hgb (14.0-18.0) g/dl Hct (42.0-52.0) % MPV 8.9 L (9.4-12.4) fL Immature Gran % (Auto) 0.6 H (0.0-0.4) % Neut % (Auto) 76.2 H (45-73) % Lymph % (Auto) 9.6 L (20-40) % Eos % (Auto) (0-4) % Lymph # (Auto) (1.2-4.9) X10*3/uL Abs Immat Gran (auto) 0.08 H (0.00-0.03) X10*3/uL Absolute Neuts (auto) 9.4 H (2.0-8.3) x10*3/uL PT 12.5 H (10.9-12.4) SEC Chloride (96-108) mmol/L BUN 30 H (9-16) mg/dL Lactic Acid 4.2 H* (0.5-2.0) mmol/L Lactic Acid F/U @ 2Hr 2.2 H* (0.5-2.0) mmol/L Alkaline Phosphatase 155 H (39-117) U/L 03/08/24 Range/Units 04:44 WBC (4.8-10.8) X10*3/uL RBC 4.34 L (4.60-5.80) X10*6/uL Hgb 13.1 L (14.0-18.0) g/dl Hct 39.5 L (42.0-52.0) % MPV 9.1 L (9.4-12.4) fL Immature Gran % (Auto) (0.0-0.4) % Neut % (Auto) 73.9 H (45-73) % Lymph % (Auto) 10.0 L (20-40) % Eos % (Auto) 4.5 H (0-4) % Lymph # (Auto) 0.9 L (1.2-4.9) X10*3/uL Abs Immat Gran (auto) (0.00-0.03) X10*3/uL Absolute Neuts (auto) (2.0-8.3) x10*3/uL PT (10.9-12.4) SEC Chloride 111 H (96-108) mmol/L BUN 22 H (9-16) mg/dL Lactic Acid (0.5-2.0) mmol/L Lactic Acid F/U @ 2Hr (0.5-2.0) mmol/L Alkaline Phosphatase (39-117) U/L Short CBC 03/07/24 03/08/24 Range/Units 16:22 04:44 WBC 12.4 H 9.4 (4.8-10.8) X10*3/uL Hgb 15.6 13.1 L (14.0-18.0) g/dl Hct 46.0 39.5 L (42.0-52.0) % Plt Count 200 183 (160-400) X10*3/uL BMP 03/07/24 03/08/24 16:22 04:44 Sodium 140 142 Potassium 3.9 3.8 Chloride 106 111 H Carbon Dioxide 22 23 BUN 30 H 22 H Creatinine 0.74 0.68 Calcium 9.9 8.6 D Liver Function 03/07/24 Range/Units 16:22 Total Bilirubin 0.6 (0.0-1.0) mg/dL AST 26 (5-37) U/L ALT 12 (0-40) U/L Alkaline Phosphatase 155 H (39-117) U/L Albumin 3.9 (3.5-5.0) g/dL All other labs normal. Imaging CT scan - chest: report reviewed and image reviewed Assessment and Plan (1) Acute exacerbation of chronic obstructive airways disease: Status: Acute Plan 79 year old male with PMH significant for COPD, former smoker admitted for COPD exacerbation found to have multiple masslike areas in the left lower lobe, right chest wall mass with associated destruction of the right third rib, right subpectoral lymphadenopathy. Findings suspicious for cancer. IR biopsy of the right third rib mass ordered. Further recommendations dependent on results. Continue supportive measures for COPD exacerbation. Procedures Date of Service Date of Service: 03/08/24
--- NOTE | 2024-03-08 12:50 | P.EN_ITS ---
Event Note Date of Service: 03/08/24 Event Note: Patient seen examined in the emergency room admitted early this morning for COPD exacerbation and noted to have multiple masses in the left lower lobe and right chest wall mass with associated destruction of the right 3rd rib Patient feeling better complaining of with right shoulder pain, intermittent right chest wall pain, persistent mild shortness of breath, denies fever, no chills On examination awake alert Lungs diminished breath sounds Extremities no edema (1) Acute hypoxemic respiratory failure due to acute COPD exacerbation: - found to be hypoxic with SpO2 of 82% on room air - treat underlying COPD with steroids and Duo Neb updrafts - consider Azithromycin for its pleiotropic effects (2) right chest wall mass with associated destruction of right 3rd rib/multiple masses and left lower lobe 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 3. Alcohol use disorder will consult Addiction Team/[facility] 4. Acute lactic acidosis resolved likely due to updraft treatment, no acute sepsis. Full code Lovenox for DVT prophylaxis In my clinical judgment patient requires continued inpatient hospitalization for treatment for acute COPD exacerbation and expert consultation for multiple lung masses. Time Spent With Patient Time: Total time managing care of this patient today ____ minutes.
--- NOTE | 2024-03-08 14:50 | P.CONPL_ITS ---
History of Present Illness History of Present Illness Consult date: 03/08/24 Chief complaint: COPD exacerbation Narrative: 79-year-old gentleman with underlying very severe COPD followed by Dr. Mckeon admitted on 03/07/2024 with dyspnea after mechanical fall several days prior to admission. On initial evaluation patient hypoxic requiring supplemental oxygen to maintain normal oximetry. CT angio chest with no evidence of pulmonary emboli, but severe emphysema, left lower lobe 2 cm nodules and right third rib destructive mass lesion. Patient treated with empiric systemic glucocorticoids and nebulized bronchodilators with significant improvement in his symptoms, however continues to require supplemental oxygen to maintain normal oximetry. Review of Systems 2 Constitutional: Constitutional: Denies daytime sleepiness, Denies excessive sweating, Denies fatigue, Denies fever(s), Denies lethargy, Denies malaise, Denies night sweats, Denies snoring and Denies weight loss Eyes: Eyes: Denies blurry vision and Denies itchy eyes ENT: Denies nasal congestion, Denies post nasal drip, Denies sinus pain, Denies sinus pressure and Denies other ( Thrush) Cardiovascular: Cardiovascular: Denies chest pain, Reports pedal edema, Denies dyspnea, Reports dyspnea on exertion, Reports orthopnea and Denies paroxysmal nocturnal dyspnea Respiratory: Respiratory: Denies cough, Denies hemoptysis, Denies excessive phlegm production, Denies dyspnea, Reports dyspnea on exertion, Denies snoring and Denies wheezing Gastrointestinal: Gastrointestinal: Denies abdominal pain and Denies heartburn Musculoskeletal: Musculoskeletal: Denies myalgias, Denies arthralgias and Denies joint swelling Integumentary/Breasts: Skin/Breast: Denies rash Neurologic: Denies memory loss and Denies seizure-like activity Psychiatric: Psychiatric: Denies abnormal sleep pattern, Denies anxiety and Denies memory loss Endocrine: Endocrine: Denies excessive sweating, Denies fatigue and Denies heat intolerance Hematologic/Lymphatic: Hematologic/Lymphatic: Denies easy bruising Allergic/Immunologic: Allergic/Immunologic: Denies itchy eyes, Denies seasonal rhinorrhea and Denies wheezing PMFSH Past Medical History Medical History (Updated 03/08/24 @ 14:53 by Miguel Dodge MD) COPD exacerbation Upper respiratory infection COPD (chronic obstructive pulmonary disease) Surgical History Surgical History (Updated 03/08/24 @ 13:53 by Celi Cordero PA-C) History of arthroscopy of left knee History of back surgery History of total replacement of both hip joints Social History Social History Alcohol intake: current Alcohol intake frequency: a few times a month Alcohol type: beer Patient Tobacco Use Status: Former Tobacco user Smoked in Last 30 Days: No Use of substances other than those prescribed or required for medical reasons: No Advance Directives: No Advance Directives Information Provided: No Nutrition Risks: No Nutritional Risk service: Yes Meds Allergies Allergy/AdvReac Type Severity Reaction Status Date / Time Penicillins [PENICILLINS] Allergy Intermediate SWELLING Verified 03/07/24 15:34 Sulfa (Sulfonamide Allergy Mild RASH Verified 03/07/24 15:34 Antibiotics) [Sulfa (Sulfonamides)] Active Medications: Current Medications Acetaminophen (Acetaminophen 325 Mg Tablet) 650 mg PO Q6H PRN PRN Reason: Pain, Mild (Pain Scale 1-3), fever or headache Al Hydroxide/Mg Hydroxide (Magnesium Hydrox/Alum Hydrox 30 Ml Oral.Susp) 30 ml PO Q4H PRN PRN Reason: Heartburn Albuterol Sulfate (Albuterol Sulfate (0.083%) 2.5 Mg/3 Ml Vial.Neb) 2.5 mg INHALE RQ4H WHILE AWAKE [facility] Last Admin: 03/08/24 11:31 Dose: 2.5 mg Albuterol/Ipratropium (Albuterol/Iprat 2.5/0.5mg 3 Ml Ampul.Neb) 3 ml INHALE Q4H PRN PRN Reason: Shortness of Breath/Wheezing Azithromycin (Azithromycin 500 Mg Tablet) 500 mg PO DAILY [facility] Last Admin: 03/08/24 09:29 Dose: 500 mg Benzonatate (Benzonatate 100 Mg Capsule) 100 mg PO TID PRN PRN Reason: Cough Docusate Sodium (Docusate Sodium 100 Mg Capsule) 100 mg PO BID [facility] Last Admin: 03/08/24 09:29 Dose: 100 mg Enoxaparin Sodium (Enoxaparin Sodium 40 Mg/0.4 Ml Syringe) 40 mg SUBCUT DAILY [facility] Last Admin: 03/08/24 09:29 Dose: 40 mg Ipratropium [place] (Ipratropium [place] 0.5 Mg/2.5 Ml Solution) 0.5 mg INHALE RQ4H WHILE AWAKE [facility] Last Admin: 03/08/24 11:31 Dose: 0.5 mg Magnesium Hydroxide (Milk Of Magnesia 30 Ml Oral.Susp) 30 ml PO DAILY PRN PRN Reason: Constipation Melatonin (Melatonin 3 Mg Tablet) 6 mg PO BEDTIME PRN PRN Reason: Insomnia Methylprednisolone Sodium Succinate (Methylprednisolone Sod Succ 40 Mg/Ml Vial) 40 mg IVPUSH BID [facility] Last Admin: 03/08/24 09:29 Dose: 40 mg Multivitamins/Vitamin C (Multivitamin Tablet) 1 tab PO DAILY [facility] Last Admin: 03/08/24 09:29 Dose: 1 tab Ondansetron HCl (Ondansetron Hcl 4 Mg/2 Ml Vial) 4 mg IVPUSH Q8H PRN PRN Reason: Nausea and Vomiting Pravastatin Sodium (Pravastatin Sodium 80 Mg Tablet) 80 mg PO BEDTIME [facility] Sodium Chloride (0.9 % Sodium Chloride Flush 3 Ml Syringe) 3 ml IVFLUSH QSHIFT [facility] Last Admin: 03/08/24 09:30 Dose: 3 ml Home Medications ?Medication ?Instructions ?Recorded ?Confirmed ?Last Taken ?Type multivitamin (Daily Multi-Vitamin 1 tab PO DAILY 09/12/20 03/07/24 03/07/24 History tablet) pravastatin 80 mg tablet 80 mg PO BEDTIME 09/02/22 03/07/24 03/07/24 History Physical Exam 2 Vital Signs: Vital Signs: Last Vital Signs Temp 98.4 F 03/08/24 08:38 Pulse 74 03/08/24 11:32 Resp 17 03/08/24 11:32 BP 107/56 L 03/08/24 08:38 Pulse Ox 96 03/08/24 08:38 O2 Del Method Room Air 03/08/24 08:38 O2 Flow Rate 2 03/08/24 05:40 Oxygen Flow Rate 2 03/07/24 15:31 BMI result Body Mass Index 29.0 Const: General: no acute distress and alert Nutritional Appearance: not obese Orientation/consciousness: Other orientation findings ( oriented) HEENT: Head: Yes atraumatic Eyes: General: appearance normal, both eyes and all related structures S clerae: sclerae normal EOM: EOMs intact bilaterally Neck: Neck: Yes supple Lymphatic: no lymphadenopathy noted Resp: Effort & Inspection: normal respiratory effort and no use of accessory muscles Auscultation: clear to auscultation bilaterally Cardio: Rate: regular rate Rhythm: regular rhythm Heart sounds: no gallops, no murmurs and no rubs Skin: General skin exam: other ( warm) Extrem: General: No clubbing, No cyanosis and Yes edema (1+ bilateral) Results Laboratory Findings 03/08/24 04:44 03/08/24 04:44 ABG, PT/INR, D-dimer: PT/INR, D-dimer PT 12.5 SEC (10.9-12.4) H 03/07/24 16:22 INR 1.1 (0.9-1.1) 03/07/24 16:22 Abnormal lab findings: Abnormal Labs 03/07/24 03/07/24 03/07/24 16:22 19:36 22:24 WBC 12.4 H RBC Hgb Hct MPV 8.9 L Immature Gran % (Auto) 0.6 H Neut % (Auto) 76.2 H Lymph % (Auto) 9.6 L Eos % (Auto) Lymph # (Auto) Abs Immat Gran (auto) 0.08 H Absolute Neuts (auto) 9.4 H PT 12.5 H Chloride BUN 30 H Lactic Acid 4.2 H* Lactic Acid F/U @ 2Hr 2.2 H* Alkaline Phosphatase 155 H 03/08/24 04:44 WBC RBC 4.34 L Hgb 13.1 L Hct 39.5 L MPV 9.1 L Immature Gran % (Auto) Neut % (Auto) 73.9 H Lymph % (Auto) 10.0 L Eos % (Auto) 4.5 H Lymph # (Auto) 0.9 L Abs Immat Gran (auto) Absolute Neuts (auto) PT Chloride 111 H BUN 22 H Lactic Acid Lactic Acid F/U @ 2Hr Alkaline Phosphatase Assessment and Plan (1) Acute exacerbation of chronic obstructive airways disease: Status: Acute (2) Chest wall mass: Status: Acute (3) Acute hypoxemic respiratory failure: Status: Acute Plan Impression: 79-year-old gentleman with underlying very severe COPD admitted with dyspnea and hypoxia secondary to COPD exacerbation with possible component diastolic dysfunction, also noted to have right chest wall mass with 3rd rib involvement and left lower lobe pulmonary nodules. Now improving on empiric therapy with bronchodilators and systemic glucocorticoids. Recommendations: Thoracic surgery evaluation of the right chest wall mass. Continue empiric treatment with systemic glucocorticoids taper and nebulized bronchodilator. Titrate off supplemental oxygen. Will require outpatient PET scan to further evaluate left lower lobe nodules. Obtain 2D echocardiogram Procedures Date of Service Date of Service: 03/08/24
--- NOTE | 2024-03-08 16:00 | CA_ITS ---
Transthoracic Echocardiogram Patient (Last, First, Middle): Jaren Up E Gender: Male Date of : 1945 Age: 79 Procedure Date: 03/08/2024 Procedure Type: Transthoracic Echocardiogram Location: [facility] Height: 182.88 cm Weight: 97.07 kg BSA: 2.19 m2 Heart Rate: bpm BP: 107 / 56 mmHg [employer] Associate: Referring MD: Miguel Dodge MD Symptoms: Dyspnea on exertion Study Quality: Technically Difficult due to COPD ECG Rhythm: Sinus Tachycardia Conclusions: - Normal left ventricular cavity size. The left ventricular systolic function is hyperdynamic. The visually estimated ejection fraction is >70%. - Limited 2 D valvular assessment. - Normal right ventricular cavity size and systolic function. Findings Procedure Information Contrast agent, definity, is being given per protocol without apparent complications. Left Ventricle Normal left ventricular cavity size. The left ventricular systolic function is hyperdynamic. The visually estimated ejection fraction is >70%. There is no evidence of regional wall motion abnormalities. Diastolic function is indeterminate on the basis of available data. Right Ventricle Normal right ventricular cavity size and systolic function. Atria The left atrium is normal in size. Aortic Valve The aortic valve was not well visualized. There is no aortic valve stenosis. There is no aortic valve regurgitation. Mitral Valve The mitral valve was not well visualized. There is no mitral valve regurgitation. There is no mitral valve stenosis. Pulmonic Valve The pulmonic valve was not well visualized. Tricuspid Valve The tricuspid valve was not well visualized. Normal right atrial pressure. There is no evidence of pulmonary hypertension. Great Vessels All visible segments of the aorta are normal in size. Venous The inferior vena cava is normal in size and collapses greater than 50% with inspiration. Pericardium/Pleural There is no evidence of pericardial effusion. Measurements 2D Linear Measurements IVSd: 1.05 0.6-0.9/0.6-1.0 cm LVIDd: 3.71 3.9-5.3/4.2-5.9 cm LVIDd Index: 1.69 2.4-3.2/2.2-3.1 cm/m2 LVIDs: 2.34 2.0-3.6 cm LVPWd: 1.18 0.7-1.1 cm Ao Root: 3.00 2.1-3.5 cm LA Diam: 3.10 2.7-3.8/3.0-4.0 cm LAIDs Index: 1.42 1.5-2.3 cm/m2 LV Mass: 164.86 67-162/88-224 g LV Mass Index: 75.28 43-95/49-115 g/m2 LVOT Diam: 2.00 3.0+(-)1.3 cm Mitral Valve MV VTI: 0.30 MV Pk Pedro: 1.56 MV Mn Pedro: 0.79 MV Pk Grad: 10.00 MV Mn Grad: 3.00 MV Pk E: 0.80 MV PK A: 1.38 MV Decel Time: 148.00 E/A: 0.60 E'Lateral: 5.66 E'Medial: 4.35 E/E' Med: 18.30 E/E' Lat: 14.10 PHT: 43.00 MVA PHT: 5.12 MVA Continuity: 2.55 Decel Tate: 5.40 Aortic Valve AoV Pk Pedro: 1.85 AoV Mn Pedro: 1.13 AoV VTI: 0.32 AoV Pk Grad: 14.00 Aov Mn Grad: 6.00 CELIA Cont.VTI: 2.33 LVOT LVOT Pk Pedro: 1.32 LVOT Mn Pedro: 0.92 LVOT VTI: 0.24 LVOT Pk Grad: 7.00 LVOT Mn Grad: 4.00 LVOT Diam: 2.00 LVOT Area: 3.14 Diastolic Function MV Pk E: 0.80 MV Pk A: 1.38 E/A: 0.60 E'Medial: 4.35 E/E' Med: 18.30 E' Laterial: 5.66 E/E' Lat: 14.10 Right Ventricle TAPSE (mm): 27.00 TVS' Pedro: 20.00 Tricuspid Valve TR Pk Pedro: 2.51 TR Pk Grad: 25.00 RA Press: 3.00 RVSP: 28.00 Great Vessels Aorta Ao Root-2D: 3.00 2.0-3.7 cm Updated in Other Vendor System with Status of Final Tre Grace MD electronically signed on 03/09/2024 12:49:18 PM with status of Final
[2024-03-08] MEDS: Pravastatin Sodium 80 MG TABLET PO (22:00)
[2024-03-09] VITALS (8 sets, daily range): BP systolic 104–139; BP diastolic 58–74; PULSE 98–118; RESP 18–93; TEMP 36.4–37.1; O2SAT 93–97
[2024-03-09] MEDS: 0.9 % Sodium Chloride Flush 3 ML SYRINGE IVFLUSH ×3 (00:22→20:51)
[2024-03-09] MEDS: Albuterol Sulfate (0.083%) 2.5 MG/3 ML VIAL.NEB INHALE ×4 (07:53→19:59)
[2024-03-09] MEDS: Ipratropium Bromide 0.5 MG/2.5 ML SOLUTION INHALE ×4 (07:53→19:59)
--- NOTE | 2024-03-09 08:11 | PM.PNTS ---
Subjective Subjective Date of Service: 03/09/24 Interval history: Patient had uneventful evening. States his dyspnea is improved with supplemental oxygen. Still complaining of right costal/rib pain highly probably related to a combination of his fall earlier last week and the lesion of the right 3rd rib. Physical Exam Vital Signs: Vital Signs: Last Vital Signs Temp 97.6 F 03/09/24 07:39 Pulse 102 H 03/09/24 07:54 Resp 18 03/09/24 07:54 BP 133/69 03/09/24 07:39 Pulse Ox 95 03/09/24 07:39 O2 Del Method Nasal Cannula 03/09/24 07:39 O2 Flow Rate 2 03/09/24 07:39 Oxygen Flow Rate 2 03/07/24 15:31 BMI result Body Mass Index 29.0 Chest: Other: Physical exam is status quo of chest Procedures Date of Service Date of Service: 03/09/24 Progress Note: A&P Assessment and plan (1) Chest wall mass: Status: Acute Plan Respiratory restorative measures per hospitalist. Rib lesion biopsy may be done as outpatient if respiratory status does not allow for on this admission. Time Spent With Patient Time: Total time managing care of this patient today ____ minutes. Quality Stroke Does the patient have a stroke diagnosis?: No VTE Prior VTE?: No VTE Risk Level:: Medical - moderate - high VTE Device Contraindication: Treatment Not Indicated VTE Drug Contraindication: N/A - Med Ordered
[2024-03-09] MEDS: Multivitamin TABLET 1 TAB PO (09:40)
[2024-03-09] MEDS: Enoxaparin Sodium 40 MG/0.4 ML SYRINGE SUBCUT (09:40)
[2024-03-09] MEDS: methylPREDNISolone Sod Succ 40 MG/ML VIAL IVPUSH ×2 (09:40→20:51)
[2024-03-09] MEDS: Docusate Sodium 100 MG CAPSULE PO ×2 (09:40→20:51)
[2024-03-09] MEDS: Azithromycin 500 MG TABLET PO (09:40)
[2024-03-09 10:45] LABS: PSA,Total (Free>4and<10) 2.51 ng/mL (0.00-4.00)
--- NOTE | 2024-03-09 11:22 | MHC.RECOVRN ---
AUDIT-C Brief Intervention Pt had positive screen for unhealthy alcohol use on admission, subsequently met with t/w to discuss alcohol use and recovery supports/options. This repairer typewriter met with patient to discuss current alcohol use and concerns related to increased risk of alcohol related problems.? Pt reports 12 beers over the course of a weekend. Pt reports alcohol use has not impacted health. Pt is not currently concerned with alcohol use. Pt reports in the past he has had periods of time with daily alcohol use. Withdrawal History: denies hx withdrawal/withdrawal seizures Treatment History: denies hx treatment Supports:?family/friends Discussed risk reduction strategies including drinking below the recommended limit. Provided pt with written resources including information on inpatient and outpatient treatment, PETE, harm reduction, and recovery coaching. Pt plans to continue drinking beer in moderation and utilize harm reduction. Pt provided with t/w contact information if questions or concerns arise. Denies other questions or concerns at this time.?
--- NOTE | 2024-03-09 11:51 | HO.PM.IMPN ---
Subjective Subjective Date of Service: 03/09/24 Interval History: Feeling better this morning still short of breath with occasional cough, denies fever, no chills complaining of persistent right shoulder pain and right upper chest pain with activity. Review of Systems All other system reviewed and are negative. Physical Exam Vital Signs: Vital Signs: Last Vital Signs Temp 97.6 F 03/09/24 07:39 Pulse 98 03/09/24 11:48 Resp 18 03/09/24 11:48 BP 133/69 03/09/24 07:39 Pulse Ox 95 03/09/24 07:39 O2 Del Method Nasal Cannula 03/09/24 07:39 O2 Flow Rate 2 03/09/24 07:39 Oxygen Flow Rate 2 03/07/24 15:31 BMI result Body Mass Index 29.0 Const: Other: General resting comfortably in no acute distress. Neck no JVD. Anterior chest wall no palpable masses, no bruise. CVS regular rate rhythm, Respiratory lungs diminished breath sounds, no respiratory distress, no rhonchi. Gastrointestinal abdomen soft, nontender, bowel sounds audible, no guarding , no rigidity. Extremities no edema. Right shoulder limited range of motion due to pain Neuro non focal Skin no rash Objective Data Active Medications Acetaminophen (Acetaminophen 325 Mg Tablet) 650 mg PO Q6H PRN PRN Reason: Pain, Mild (Pain Scale 1-3), fever or headache Al Hydroxide/Mg Hydroxide (Magnesium Hydrox/Alum Hydrox 30 Ml Oral.Susp) 30 ml PO Q4H PRN PRN Reason: Heartburn Albuterol Sulfate (Albuterol Sulfate (0.083%) 2.5 Mg/3 Ml Vial.Neb) 2.5 mg INHALE RQ4H WHILE AWAKE [facility] Last Admin: 03/09/24 11:47 Dose: 2.5 mg Documented By: EVELINA Albuterol/Ipratropium (Albuterol/Iprat 2.5/0.5mg 3 Ml Ampul.Neb) 3 ml INHALE Q4H PRN PRN Reason: Shortness of Breath/Wheezing Azithromycin (Azithromycin 500 Mg Tablet) 500 mg PO DAILY [facility] Last Admin: 03/09/24 09:40 Dose: 500 mg Documented By: MARELY Benzonatate (Benzonatate 100 Mg Capsule) 100 mg PO TID PRN PRN Reason: Cough Docusate Sodium (Docusate Sodium 100 Mg Capsule) 100 mg PO BID [facility] Last Admin: 03/09/24 09:40 Dose: 100 mg Documented By: MARELY Enoxaparin Sodium (Enoxaparin Sodium 40 Mg/0.4 Ml Syringe) 40 mg SUBCUT DAILY [facility] Last Admin: 03/09/24 09:40 Dose: 40 mg Documented By: MARELY Fluticasone/Vilanterol (Fluticasone/Vilanterol 200/25 Blst.W.Dev) 1 puff INHALE RDAILY [facility] Ipratropium [place] (Ipratropium [place] 0.5 Mg/2.5 Ml Solution) 0.5 mg INHALE RQ4H WHILE AWAKE [facility] Last Admin: 03/09/24 11:47 Dose: 0.5 mg Documented By: EVELINA Magnesium Hydroxide (Milk Of Magnesia 30 Ml Oral.Susp) 30 ml PO DAILY PRN PRN Reason: Constipation Melatonin (Melatonin 3 Mg Tablet) 6 mg PO BEDTIME PRN PRN Reason: Insomnia Methylprednisolone Sodium Succinate (Methylprednisolone Sod Succ 40 Mg/Ml Vial) 40 mg IVPUSH BID [facility] Last Admin: 03/09/24 09:40 Dose: 40 mg Documented By: MARELY Multivitamins/Vitamin C (Multivitamin Tablet) 1 tab PO DAILY [facility] Last Admin: 03/09/24 09:40 Dose: 1 tab Documented By: MARELY Ondansetron HCl (Ondansetron Hcl 4 Mg/2 Ml Vial) 4 mg IVPUSH Q8H PRN PRN Reason: Nausea and Vomiting Pravastatin Sodium (Pravastatin Sodium 80 Mg Tablet) 80 mg PO BEDTIME [facility] Last Admin: 03/08/24 22:00 Dose: 80 mg Documented By: RA Sodium Chloride (0.9 % Sodium Chloride Flush 3 Ml Syringe) 3 ml IVFLUSH QSHIFT [facility] Last Admin: 03/09/24 09:39 Dose: 3 ml Documented By: MARELY Labs 03/08/24 04:44 03/08/24 04:44 Labs: Laboratory Results - last 24 hr 03/09/24 09:59 Total PSA 2.51 Microbiology Microbiology Results: Microbiology 03/07/24 19:49 Blood Culture - Preliminary Blood - Venous No growth after 24 hours. 03/07/24 19:36 Blood Culture - Preliminary Blood - Venous No growth after 24 hours. Assessment and Plan (1) Chest wall mass: Status: Acute (2) Acute hypoxemic respiratory failure: Status: Acute (3) Acute exacerbation of chronic obstructive airways disease: Status: Acute Plan 79-year-old gentleman with underlying severe COPD admitted with dyspnea and hypoxia secondary to COPD exacerbation , also noted to have right chest wall mass with 3rd rib destruction and left lower lobe pulmonary nodules. 1. Acute hypoxemic respiratory failure due to acute COPD exacerbation and multiple pulmonary nodules: On admission hypoxic with SpO2 of 82% on room air Continue steroids and Duo Neb updrafts, Azithromycin for pleiotropic effects. Wean O2 as tolerated, home O2 eval prior to discharge,OOB to chair and IS as tolerated. Echocardiogram obtained to assess LV function report pending. 2. right chest wall mass with associated destruction of right 3rd rib/multiple masses and left lower lobe Consulted portal developer Dr. Dodge he recommend thoracic surgery patient evaluated by Dr. Alvarado he recommended right 3rd rib lesion biopsy by IR, but due to acute COPD exacerbation IR recommend outpatient workup Patient will also require PET scan to further evaluate left lower lobe nodules Will obtain PSA 3. Alcohol use disorder will consult Addiction Team/[facility] 4. Acute lactic acidosis resolved likely due to updraft treatment, no acute sepsis. Full code Lovenox for DVT prophylaxis In my clinical judgment patient requires continued inpatient hospitalization for treatment for acute COPD exacerbation requiring IV steroids oxygen and frequent updrafts. Quality Stroke Does the patient have a stroke diagnosis?: No VTE Prior VTE?: No VTE Risk Level:: Medical - moderate - high VTE Device Contraindication: Treatment Not Indicated VTE Drug Contraindication: N/A - Med Ordered
--- NOTE | 2024-03-09 14:29 | MHC.CM.PN ---
Per MD rounds patient is not medically cleared for discharge. DP Home no services via private transport home.
[2024-03-09] MEDS: Pravastatin Sodium 80 MG TABLET PO (20:51)
[2024-03-09] MEDS: Melatonin 3 MG TABLET 6 MG PO (23:25)
[2024-03-10] VITALS (9 sets, daily range): BP systolic 120–131; BP diastolic 68–75; PULSE 89–109; RESP 16–20; TEMP 36–37.3; O2SAT 92–100
[2024-03-10] MEDS: Magnesium Hydrox/Alum Hydrox 30 ML ORAL.SUSP PO ×2 (01:51→20:39)
[2024-03-10] MEDS: Albuterol Sulfate (0.083%) 2.5 MG/3 ML VIAL.NEB INHALE ×4 (08:46→18:49)
[2024-03-10] MEDS: Ipratropium Bromide 0.5 MG/2.5 ML SOLUTION INHALE ×4 (08:46→18:49)
[2024-03-10] MEDS: Fluticasone/Vilanterol 200/25 BLST.W.DEV 1 PUFF INHALE (08:56)
[2024-03-10] MEDS: 0.9 % Sodium Chloride Flush 3 ML SYRINGE IVFLUSH ×3 (09:40→20:43)
[2024-03-10] MEDS: methylPREDNISolone Sod Succ 40 MG/ML VIAL IVPUSH ×2 (09:41→20:39)
[2024-03-10] MEDS: Azithromycin 500 MG TABLET PO (09:42)
[2024-03-10] MEDS: Docusate Sodium 100 MG CAPSULE PO ×2 (09:42→20:39)
[2024-03-10] MEDS: Multivitamin TABLET 1 TAB PO (09:42)
[2024-03-10] MEDS: Enoxaparin Sodium 40 MG/0.4 ML SYRINGE SUBCUT (09:46)
--- NOTE | 2024-03-10 13:00 | P.PNIM_ITS ---
Subjective Subjective Date of Service: 03/10/24 Interval History: Feeling better less shortness of breath at rest, complaining of shortness of breath with activity persistent right shoulder and right anterior chest pain under right armpit, worse with movement. No acute events overnight. Review of Systems All other system reviewed and are negative Physical Exam 2 Vital Signs: Vital Signs: Last Vital Signs Temp 97.2 F 03/10/24 07:34 Pulse 102 H 03/10/24 11:24 Resp 18 03/10/24 11:24 BP 121/74 03/10/24 07:34 Pulse Ox 96 03/10/24 07:34 O2 Del Method Nasal Cannula 03/10/24 07:34 O2 Flow Rate 2 03/10/24 07:34 Oxygen Flow Rate 2 03/07/24 15:31 BMI result Body Mass Index 29.0 Const: Other: General resting comfortably in no acute distress. Neck no JVD. Anterior chest wall no palpable masses, no bruise. CVS regular rate rhythm, Respiratory lungs diminished breath sounds, no respiratory distress, no rhonchi. Gastrointestinal abdomen soft, nontender, bowel sounds audible, no guarding , no rigidity. Extremities no edema. Right shoulder limited range of motion due to pain Neuro non focal Skin no rash Objective Data Active Medications Acetaminophen (Acetaminophen 325 Mg Tablet) 650 mg PO Q6H PRN PRN Reason: Pain, Mild (Pain Scale 1-3), fever or headache Al Hydroxide/Mg Hydroxide (Magnesium Hydrox/Alum Hydrox 30 Ml Oral.Susp) 30 ml PO Q4H PRN PRN Reason: Heartburn Last Admin: 03/10/24 01:51 Dose: 30 ml Documented By: AUBRIE Albuterol Sulfate (Albuterol Sulfate (0.083%) 2.5 Mg/3 Ml Vial.Neb) 2.5 mg INHALE RQ4H WHILE AWAKE [facility] Last Admin: 03/10/24 11:22 Dose: 2.5 mg Documented By: TWILA Albuterol/Ipratropium (Albuterol/Iprat 2.5/0.5mg 3 Ml Ampul.Neb) 3 ml INHALE Q4H PRN PRN Reason: Shortness of Breath/Wheezing Azithromycin (Azithromycin 500 Mg Tablet) 500 mg PO DAILY [facility] Last Admin: 03/10/24 09:42 Dose: 500 mg Documented By: HO.MOHAMER Benzonatate (Benzonatate 100 Mg Capsule) 100 mg PO TID PRN PRN Reason: Cough Docusate Sodium (Docusate Sodium 100 Mg Capsule) 100 mg PO BID [facility] Last Admin: 03/10/24 09:42 Dose: 100 mg Documented By: JESSICA Enoxaparin Sodium (Enoxaparin Sodium 40 Mg/0.4 Ml Syringe) 40 mg SUBCUT DAILY [facility] Last Admin: 03/10/24 09:46 Dose: 40 mg Documented By: JESSICA Fluticasone/Vilanterol (Fluticasone/Vilanterol 200/25 Blst.W.Dev) 1 puff INHALE RDAILY [facility] Last Admin: 03/10/24 08:56 Dose: 1 puff Documented By: KRISTAL Ipratropium [place] (Ipratropium [place] 0.5 Mg/2.5 Ml Solution) 0.5 mg INHALE RQ4H WHILE AWAKE [facility] Last Admin: 03/10/24 11:22 Dose: 0.5 mg Documented By: SCARASELI Magnesium Hydroxide (Milk Of Magnesia 30 Ml Oral.Susp) 30 ml PO DAILY PRN PRN Reason: Constipation Melatonin (Melatonin 3 Mg Tablet) 6 mg PO BEDTIME PRN PRN Reason: Insomnia Last Admin: 03/09/24 23:25 Dose: 6 mg Documented By: AUBRIE Methylprednisolone Sodium Succinate (Methylprednisolone Sod Succ 40 Mg/Ml Vial) 40 mg IVPUSH BID [facility] Last Admin: 03/10/24 09:41 Dose: 40 mg Documented By: JESSICA Multivitamins/Vitamin C (Multivitamin Tablet) 1 tab PO DAILY [facility] Last Admin: 03/10/24 09:42 Dose: 1 tab Documented By: JESSICA Ondansetron HCl (Ondansetron Hcl 4 Mg/2 Ml Vial) 4 mg IVPUSH Q8H PRN PRN Reason: Nausea and Vomiting Pravastatin Sodium (Pravastatin Sodium 80 Mg Tablet) 80 mg PO BEDTIME [facility] Last Admin: 03/09/24 20:51 Dose: 80 mg Documented By: AUBRIE Sodium Chloride (0.9 % Sodium Chloride Flush 3 Ml Syringe) 3 ml IVFLUSH QSHIFT [facility] Last Admin: 03/10/24 09:40 Dose: 3 ml Documented By: HO.MOHAMER Labs 03/08/24 04:44 03/08/24 04:44 Microbiology Microbiology Results: Microbiology 03/07/24 19:49 Blood Culture - Preliminary Blood - Venous No growth after 48 hours. 03/07/24 19:36 Blood Culture - Preliminary Blood - Venous No growth after 48 hours. Assessment and Plan (1) Chest wall mass: Status: Acute (2) Acute hypoxemic respiratory failure: Status: Acute (3) Acute exacerbation of chronic obstructive airways disease: Status: Acute Plan 79-year-old gentleman with underlying severe COPD admitted with dyspnea and hypoxia secondary to COPD exacerbation , also noted to have right chest wall mass with 3rd rib destruction and left lower lobe pulmonary nodules. 1. Acute hypoxemic respiratory failure due to acute COPD exacerbation and multiple pulmonary nodules: On admission hypoxic with SpO2 of 82% on room air Continue iv steroids and Duo Neb updrafts, Azithromycin for pleiotropic effects started on 03/08. Wean O2 as tolerated, home O2 eval prior to discharge, IS as tolerated. Echocardiogram showed EF 70%, no wall motion abnormality, indeterminate diastolic function , no acute CHF noted on exam Will transition to tapering dose of steroids at a.m., encourage ambulation 2. right chest wall mass with associated destruction of right 3rd rib/multiple masses and left lower lobe Consulted hat liner Dr. Dodge he recommend thoracic surgery,seen by Dr. Alvarado he recommended right 3rd rib lesion biopsy by IR, but due to acute COPD exacerbation IR recommend outpatient workup Patient will also require PET scan to further evaluate left lower lobe nodules, recommend outpatient follow-up with Dr. Mckeon PSA 2.51 3. Alcohol use disorder no acute withdrawal symptoms, seen by Addiction Team patient plans to continue drinking beer in moderation and utilize harm reduction. 4. Acute lactic acidosis resolved likely due to updraft treatment, no acute sepsis. 5. Right shoulder pain due to fall x-ray shoulder showed osteoarthritis, and right chest wall pain due to 3rd rib fracture /Tylenol and Salonpas Full code Lovenox for DVT prophylaxis In my clinical judgment patient requires continued inpatient hospitalization for treatment for acute COPD exacerbation requiring IV steroids oxygen and frequent updrafts. Quality Stroke Does the patient have a stroke diagnosis?: No VTE Prior VTE?: No VTE Risk Level:: Medical - moderate - high VTE Device Contraindication: Treatment Not Indicated VTE Drug Contraindication: N/A - Med Ordered
[2024-03-10] MEDS: Pravastatin Sodium 80 MG TABLET PO (20:39)
[2024-03-11] VITALS (13 sets, daily range): BP systolic 111–130; BP diastolic 58–83; PULSE 86–123; RESP 14–22; TEMP 36.5–36.8; O2SAT 86–99
--- NOTE | 2024-03-11 | ECG_ITS ---
Test Reason : tachycardic Blood Pressure : / mmHG Vent. Rate : 111 BPM Atrial Rate : 111 BPM P-R Int : 140 ms QRS Dur : 088 ms QT Int : 346 ms P-R-T Axes : 065 028 041 degrees QTc Int : 470 ms Sinus tachycardia Otherwise normal ECG When compared with ECG of 07-MAR-2024 16:04, No significant change was found Referred By: Yordy Coronado Electronically Signed By:Tre Grace
[2024-03-11] MEDS: Melatonin 3 MG TABLET 6 MG PO (03:30)
[2024-03-11] MEDS: Ipratropium Bromide 0.5 MG/2.5 ML SOLUTION INHALE ×4 (07:41→18:45)
[2024-03-11] MEDS: Albuterol Sulfate (0.083%) 2.5 MG/3 ML VIAL.NEB INHALE ×3 (07:41→15:04)
[2024-03-11] MEDS: Fluticasone/Vilanterol 200/25 BLST.W.DEV 1 PUFF INHALE (07:41)
[2024-03-11] MEDS: 0.9 % Sodium Chloride Flush 3 ML SYRINGE IVFLUSH ×3 (08:59→21:18)
[2024-03-11] MEDS: methylPREDNISolone Sod Succ 40 MG/ML VIAL IVPUSH (09:01)
[2024-03-11] MEDS: Multivitamin TABLET 1 TAB PO (09:03)
[2024-03-11] MEDS: Docusate Sodium 100 MG CAPSULE PO ×2 (09:03→21:17)
[2024-03-11] MEDS: Azithromycin 500 MG TABLET PO (09:03)
[2024-03-11] MEDS: Enoxaparin Sodium 40 MG/0.4 ML SYRINGE SUBCUT (09:04)
--- NOTE | 2024-03-11 13:56 | MHC.CM.NN ---
HOME O2 EVALUATION COMPLETED. PLAN IS HOME WITH NEW O2 AT [place]. CASE MANAGEMENT FOLLOWING
--- NOTE | 2024-03-11 14:35 | MHC.CM.PN ---
HOME O2 EVALUATION COMPLETED. PLAN IS HOME WITH NEW O2 AT [place]. CASE MANAGEMENT FOLLOWING
--- NOTE | 2024-03-11 15:00 | P.PNIM_ITS ---
Subjective Subjective Date of Service: 03/11/24 Interval History: breathing improved orthostatics negative but quite tachycardic R-sided chest wall pain Review of Systems Review of Systems: Yes all other systems are reviewed and are negative Physical Exam 2 Vital Signs: Vital Signs: Last Vital Signs Temp 97.9 F 03/11/24 07:18 Pulse 121 H 03/11/24 12:50 Resp 22 H 03/11/24 11:23 BP 111/67 03/11/24 12:50 Pulse Ox 95 03/11/24 07:18 O2 Del Method Nasal Cannula 03/11/24 07:18 O2 Flow Rate 1 03/11/24 07:18 Oxygen Flow Rate 2 03/07/24 15:31 BMI result Body Mass Index 29.0 Gen: in no acute distress HEENT: sclera anicteric, moist mucus membranes Neck: supple Lungs: clear to auscultation bilaterally Heart: regular rate and rhythm, no murmurs Abd: soft, non-tender, non-distended Ext: no edema Skin: warm/well-perfused Neuro: alert and oriented x3, no focal findings Psych: appropriate affect Objective Data Active Medications Acetaminophen (Acetaminophen 325 Mg Tablet) 650 mg PO Q6H PRN PRN Reason: Pain, Mild (Pain Scale 1-3), fever or headache Al Hydroxide/Mg Hydroxide (Magnesium Hydrox/Alum Hydrox 30 Ml Oral.Susp) 30 ml PO Q4H PRN PRN Reason: Heartburn Last Admin: 03/10/24 20:39 Dose: 30 ml Documented By: SEDA Albuterol Sulfate (Albuterol Sulfate (0.083%) 2.5 Mg/3 Ml Vial.Neb) 2.5 mg INHALE RQ4H WHILE AWAKE [facility] Last Admin: 03/11/24 11:23 Dose: 2.5 mg Documented By: TARI Albuterol/Ipratropium (Albuterol/Iprat 2.5/0.5mg 3 Ml Ampul.Neb) 3 ml INHALE Q4H PRN PRN Reason: Shortness of Breath/Wheezing Azithromycin (Azithromycin 500 Mg Tablet) 500 mg PO DAILY [facility] Last Admin: 03/11/24 09:03 Dose: 500 mg Documented By: JESSICA Benzonatate (Benzonatate 100 Mg Capsule) 100 mg PO TID PRN PRN Reason: Cough Docusate Sodium (Docusate Sodium 100 Mg Capsule) 100 mg PO BID [facility] Last Admin: 03/11/24 09:03 Dose: 100 mg Documented By: JESSICA Enoxaparin Sodium (Enoxaparin Sodium 40 Mg/0.4 Ml Syringe) 40 mg SUBCUT DAILY [facility] Last Admin: 03/11/24 09:04 Dose: 40 mg Documented By: JESSICA Fluticasone/Vilanterol (Fluticasone/Vilanterol 200/25 Blst.W.Dev) 1 puff INHALE RDAILY [facility] Last Admin: 03/11/24 07:41 Dose: 1 puff Documented By: TARI Ipratropium [place] (Ipratropium [place] 0.5 Mg/2.5 Ml Solution) 0.5 mg INHALE RQ4H WHILE AWAKE [facility] Last Admin: 03/11/24 11:23 Dose: 0.5 mg Documented By: TARI Magnesium Hydroxide (Milk Of Magnesia 30 Ml Oral.Susp) 30 ml PO DAILY PRN PRN Reason: Constipation Melatonin (Melatonin 3 Mg Tablet) 6 mg PO BEDTIME PRN PRN Reason: Insomnia Last Admin: 03/11/24 03:30 Dose: 6 mg Documented By: SEDA Multivitamins/Vitamin C (Multivitamin Tablet) 1 tab PO DAILY [facility] Last Admin: 03/11/24 09:03 Dose: 1 tab Documented By: JESSICA Ondansetron HCl (Ondansetron Hcl 4 Mg/2 Ml Vial) 4 mg IVPUSH Q8H PRN PRN Reason: Nausea and Vomiting Pravastatin Sodium (Pravastatin Sodium 80 Mg Tablet) 80 mg PO BEDTIME [facility] Last Admin: 03/10/24 20:39 Dose: 80 mg Documented By: SEDA Prednisone (Prednisone 20 Mg Tablet) 40 mg PO DAILY [facility] Sodium Chloride (0.9 % Sodium Chloride Flush 3 Ml Syringe) 3 ml IVFLUSH QSHIFT [facility] Last Admin: 03/11/24 08:59 Dose: 3 ml Documented By: JESSICA Labs 03/08/24 04:44 03/08/24 04:44 Assessment and Plan (1) Chest wall mass: Status: Acute (2) Acute hypoxemic respiratory failure: Status: Acute (3) Acute exacerbation of chronic obstructive airways disease: Status: Acute Plan d5 for 79yo M with severe COPD admitted with hypoxia from COPD exac, also found to have R chest wall mass with destruction of 3rd rib and LLL pulmonary nodules AHRF due to acute COPD exacerbation - IV to PO steroids, continue azithromycin 03/08-03/12, change nebs to levalbuterol given tachycardia - home O2 eval: 3L O2 with ambulation - TTE with LVEF 70%, no WMA, indeterminate diastolic function R chest all mass with R 3rd rib destruction/LLL nodules - Pulm + Thoracic Surg consulted; recommend IR-guided biopsy of R 3rd rib lesion but defer to outpt setting until pt's pulmonary status improves; also requires PET scan to evaluate LLL nodules; outpt f/u with his curb setter helper Dr Mckeon - pain control with APAP, topical lidocaine tachycardia - check EKG. control pain. change albuterol to levalbuterol AUD without withdrawal - Addiction Team consulted, harm reduction counseled acute lactic acidosis - due to nebs, not septic VTE ppx - enoxaparin dispo - home with VNA In my clinical judgment, the patient requires continued inpatient hospitalization for the following reasons: tachycardia Total time managing care of this patient today: 40 minutes. Quality Stroke Does the patient have a stroke diagnosis?: No VTE Prior VTE?: No VTE Risk Level:: Medical - moderate - high VTE Device Contraindication: Treatment Not Indicated VTE Drug Contraindication: N/A - Med Ordered
--- NOTE | 2024-03-11 15:20 | MHC.CM.PN ---
PLAN IS HOME THURSDAY
[2024-03-11] MEDS: Pravastatin Sodium 80 MG TABLET PO (21:17)
[2024-03-11] MEDS: Magnesium Hydrox/Alum Hydrox 30 ML ORAL.SUSP PO (21:17)
[2024-03-11] MEDS: Zolpidem Tartrate 5 MG TABLET PO (21:59)
[2024-03-12 03:35] VITALS: BP 113/59; PULSE 97; RESP 20; TEMP 36.3; O2SAT 96
[2024-03-12] MEDS: Acetaminophen 325 MG TABLET 650 MG PO (04:09)
[2024-03-12] MEDS: Fluticasone/Vilanterol 200/25 BLST.W.DEV 1 PUFF INHALE (07:32)
[2024-03-12] MEDS: Ipratropium Bromide 0.5 MG/2.5 ML SOLUTION INHALE ×2 (07:32→11:18)
[2024-03-12 07:33] VITALS: PULSE 97; RESP 20; O2SAT 98
[2024-03-12 07:55] VITALS: BP 133/74; PULSE 97; RESP 19; TEMP 36.7; O2SAT 99
[2024-03-12] MEDS: 0.9 % Sodium Chloride Flush 3 ML SYRINGE IVFLUSH (08:32)
[2024-03-12] MEDS: predniSONE 20 MG TABLET 40 MG PO (08:33)
[2024-03-12] MEDS: Multivitamin TABLET 1 TAB PO (08:33)
[2024-03-12] MEDS: Enoxaparin Sodium 40 MG/0.4 ML SYRINGE SUBCUT (08:33)
[2024-03-12] MEDS: Docusate Sodium 100 MG CAPSULE PO (08:33)
[2024-03-12] MEDS: Azithromycin 500 MG TABLET PO (08:33)
--- NOTE | 2024-03-12 10:04 | MHC.CM.PN ---
pt dcd home with aleksey
[2024-03-12 11:22] VITALS: PULSE 97; RESP 19; O2SAT 97
--- NOTE | 2024-03-12 11:35 | P.F2F_ITS ---
Service Date Service Date: 03/12/24 Encounter Date of encounter: 03/12/24 Reasons for Services Signs and symptoms assessed: dypsnea hypoxia Reason for long-term: medication management, medication treatment, teach disease management and other (respiratory monitoring) Reason for physical therapy: home safety and mobility, therapeutic exercises, ga it/transfer training, assess need for DME, ADL training and energy conservation MD Overseeing Care: Koby Peña Homebound: Leaving the home is medically contraindicated at this time without the asist of a device and/or another person due th the listed conditions above and below. Reason homebound: shortness of breath with minimal effort Certification: Based on the above findings, I certify that this patient is confined to the home and needs intermittent long-term care, physical therapy and/or speech therapy, or continues to need occupational therapy. The patient is under my care, and I have initiated the establishment of the plan of care. The patient will be followed by a physician who will periodically review the plan of care. Time Spent With Patient Time: Total time managing care of this patient today ____ minutes.
--- NOTE | 2024-03-12 11:59 | PM.DS ---
DS: Providers Provider Date of Service: 03/12/24 Date of admission: 03/07/24 21:53 Date of discharge: 03/12/24 Primary care physician: Koby Peña MD Consults: 03/08/24 08:32 Consult to Pulmonology Routine Consulting Provider: [facility] Pulmonology Services Reason for consultation: copd lung mass with rib destruction Has provider been notified: No 03/08/24 09:35 Consult to Thoracic Surgery Routine Consulting Provider: Vasiliy Alvarado Reason for consultation: chest wall mass Has provider been notified: No 03/08/24 12:55 Addiction Medicine Routine Consulting Provider: Addiction Covering Reason for consultation: etoh use Has provider been notified: No DS: Diagnosis Discharge Diagnosis (1) Chest wall mass: Status: Acute (2) Acute hypoxemic respiratory failure: Status: Acute (3) Acute exacerbation of chronic obstructive airways disease: Status: Acute (4) Alcohol intake above recommended sensible limits: Status: Acute (5) Lung mass: Status: Acute DS: Summary Hospital Course Hospital Course: From the history and physical by the admitting hospitalist, Subhash Welch MD, 03/08/24: Patient is a 79 year old white male with underlying COPD who presents to the ED from home complaining of worsening shortness of breath over the last 3 days. He took his breathing treatments with no effects and so came in for evaluation. He admits to having a wet cough but denies any chest pain or wheezing. On arrival to the ED, he was found to be hypoxic with SpO2 of 82% and was placed on supplemental oxygen and also started on IV steroids and received breathing treatments with some improvement. He however still requires oxygen and his breathing is not yet backl to his baseline so admission has been requested for continued care. 79yo M with severe COPD admitted with hypoxia from COPD exacerbation; also found to have R chest wall mass with destruction of 3rd rib and multiple masslike areas in the left lower lobe concerning for malignancy. He was admitted to the medical-surgical unit. He was treated with IV/PO steroids and azithromycin and inhaled bronchodilators. He improved, though still required 3L of O2 with ambulation upon discharge. Pulmonology and Thoracic Surgery were consulted regarding the chest wall and lung masses that are suspicious for malignancy. IR-guided biopsy of the rib lesion was recommended to be deferred to the outpatient setting given the patient's COPD exacerbation. He will see his research environmental scientist Dr Mckeon in 1 week and also will require a PET scan. He should also see Thoracic Surgery [Dr Alvarado] in 1-2 weeks. He met with the Recovery Team due to excess EtOH intake and was counseled on harm reduction. He was discharged home with VNA services. Time Attestation Discharge Coordination Time (in mins): 40 Quality: Safe Use of Opioids Does Pt have an Active Cancer Diagnosis on the Problem List?: No Quality: Stroke Does the patient have a stroke diagnosis?: No Physical Exam Vital Signs: Vital Signs: Last Vital Signs Temp 98.0 F 03/12/24 07:55 Pulse 97 03/12/24 11:22 Resp 19 03/12/24 11:22 BP 133/74 03/12/24 07:55 Pulse Ox 99 03/12/24 07:55 O2 Del Method Room Air 03/12/24 07:55 O2 Flow Rate 2 03/12/24 03:35 Oxygen Flow Rate 2 03/07/24 15:31 BMI result Body Mass Index 29.0 Gen: in no acute distress HEENT: sclera anicteric, moist mucus membranes Neck: supple Lungs: clear to auscultation bilaterally; R chest wall tenderness Heart: regular rate and rhythm, no murmurs Abd: soft, non-tender, non-distended Ext: no edema Skin: warm/well-perfused Neuro: alert and oriented x3, no focal findings Psych: appropriate affect DS: Data Data Completed and Pending Completed studies during hospitalization [Text1]: Laboratory Results WBC 9.4 X10*3/uL (4.8-10.8) 03/08/24 04:44 RBC 4.34 X10*6/uL (4.60-5.80) L 03/08/24 04:44 Hgb 13.1 g/dl (14.0-18.0) L 03/08/24 04:44 Hct 39.5 % (42.0-52.0) L 03/08/24 04:44 MCV 91.0 fL (80.0-98.0) 03/08/24 04:44 MCH 30.2 pg (27.0-33.0) 03/08/24 04:44 MCHC 33.2 g/dl (31.0-36.0) 03/08/24 04:44 RDW 14.6 % (11.0-16.0) 03/08/24 04:44 Plt Count 183 X10*3/uL (160-400) 03/08/24 04:44 MPV 9.1 fL (9.4-12.4) L 03/08/24 04:44 Immature Gran % (Auto) 0.3 % (0.0-0.4) 03/08/24 04:44 Neut % (Auto) 73.9 % (45-73) H 03/08/24 04:44 Lymph % (Auto) 10.0 % (20-40) L 03/08/24 04:44 [place] % (Auto) 10.9 % (2-11) 03/08/24 04:44 Eos % (Auto) 4.5 % (0-4) H 03/08/24 04:44 Baso % (Auto) 0.4 % (0-2) 03/08/24 04:44 Lymph # (Auto) 0.9 X10*3/uL (1.2-4.9) L 03/08/24 04:44 [place] # (Auto) 1.0 X10*3/uL (0.1-1.2) 03/08/24 04:44 Eos # (Auto) 0.4 X10*3/uL (0.0-0.4) 03/08/24 04:44 Baso # (Auto) 0.0 X10*3/uL (0.0-0.2) 03/08/24 04:44 Abs Immat Gran (auto) 0.03 X10*3/uL (0.00-0.03) 03/08/24 04:44 Absolute Neuts (auto) 7.0 x10*3/uL (2.0-8.3) 03/08/24 04:44 Absolute Nucleated RBC 0.000 X10*3/uL (0.0-0.012) 03/08/24 04:44 Nucleated RBC % (auto) 0.0 /100WBC (0.0-0.2) 03/08/24 04:44 Hold Purple Top SEE NOTE 03/07/24 22:24 PT 12.5 SEC (10.9-12.4) H 03/07/24 16:22 INR 1.1 (0.9-1.1) 03/07/24 16:22 APTT 30.1 SEC (26.0-36.8) 03/07/24 16:22 D-Dimer High Sensitivty 823 NG/ML 03/07/24 16:22 Sodium 142 mmol/L (135-145) 03/08/24 04:44 Potassium 3.8 mmol/L (3.3-5.1) 03/08/24 04:44 Chloride 111 mmol/L (96-108) H 03/08/24 04:44 Carbon Dioxide 23 mmol/L (22-29) 03/08/24 04:44 Anion Gap 12 (12-20) 03/08/24 04:44 BUN 22 mg/dL (9-16) H 03/08/24 04:44 Creatinine 0.68 mg/dL (0.5-1.4) 03/08/24 04:44 Estim Creat Clear Calc 108.1 03/08/24 04:44 Estimated GFR > 60 03/08/24 04:44 Random Glucose 102 mg/dL (60-115) 03/08/24 04:44 Lactic Acid 4.2 mmol/L (0.5-2.0) H* 03/07/24 19:36 Lactic Acid F/U @ 2Hr 2.2 mmol/L (0.5-2.0) H* 03/07/24 22:24 Lactic Acid F/U @ 4Hr 1.2 mmol/L (0.5-2.0) 03/08/24 01:36 Calcium 8.6 mg/dL (8.4-10.2) D 03/08/24 04:44 Total Bilirubin 0.6 mg/dL (0.0-1.0) 03/07/24 16:22 AST 26 U/L (5-37) 03/07/24 16:22 ALT 12 U/L (0-40) 03/07/24 16:22 Alkaline Phosphatase 155 U/L (39-117) H 03/07/24 16:22 Troponin I High Sens < 2.7 ng/L (<3.5-35.0) 03/07/24 16:22 B-Natriuretic Peptide 10 pg/mL (<100) 03/07/24 16:22 Total Protein 7.5 g/dL (6.5-8.0) 03/07/24 16:22 Albumin 3.9 g/dL (3.5-5.0) 03/07/24 16:22 Total PSA 2.51 ng/mL (0.00-4.00) 03/09/24 09:59 Hold Yellow Top See Note 03/07/24 22:24 Ethyl Alcohol < 10 mg/dL 03/07/24 16:22 Influenza Type A (PCR) NEGATIVE (Negative) 03/07/24 16:22 Influenza Type B (PCR) NEGATIVE (Negative) 03/07/24 16:22 RSV RNA Qual (PCR) NEGATIVE (Negative) 03/07/24 16:22 SARS-CoV-2 RNA (RT-PCR) NEGATIVE (Negative) 03/07/24 16:22 Impressions Chest X-Ray 03/07/24 15:45 IMPRESSION: Left lower lobe pneumonia. Right upper lobe density may represent consolidation versus mass. Recommend short interval follow-up. Electronically signed by: Melvi Wong MD 03/07/2024 04:48 PM EST RP Shoulder X-Ray 03/07/24 16:40 IMPRESSION: Osteoarthritis Electronically signed by: Pierce Trevino MD 03/07/2024 05:37 PM EST RP Chest CTA 03/07/24 18:49 IMPRESSION: 1. No evidence of pulmonary emboli. 2. Severe emphysema with multiple masslike areas in the left lower lobe. 3. Right chest wall mass with associated destruction of the right third rib. 4. Right subpectoral lymphadenopathy. 5. L1 compression fracture. 6. Above-mentioned findings are concerning for malignancy. Biopsy of the destructive chest wall mass could easily be performed under CT guidance. 7. Other incidental findings as described above. Fleischner guidelines were followed. Electronically signed by: Clarence Block MD 03/07/2024 11:20 PM EST RP Labs on day of discharge: Preliminary micro results at discharge 03/07/24 19:49 Blood Culture - Preliminary Blood - Venous No growth after 48 hours. 03/07/24 19:36 Blood Culture - Preliminary Blood - Venous No growth after 48 hours. Discharge Plan Discharge Anticipated Discharge Date/Time: 12/07/24 11:35 Patient Disposition: Home Health Service Discharge Diagnosis: hypoxia COPD exacerbation chest wall mass Referrals: aleksey [Other] - 1 Week Mary Jo Mckeon MD [Physician] - 1 Week Koby Peña MD [Primary Care Provider] - 1 Week Vasiliy Alvarado MD [Physician] - 1 Week Discharge Medications: New prednisone 10 mg tablet 10 mg PO DIRECTED Qty: 20 0RF Rx Instructions: 40 mg daily x 2 days, then 30 mg daily x 2 days, then 20 mg daily x 2 days, then 10 mg daily x 2 days lidocaine 5 % adhesive patch,medicated 1 patch topical DAILY Qty: 30 0RF Rx Instructions: leave on most painful area for up to 12 hrs Continued albuterol sulfate 90 mcg/actuation HFA aerosol inhaler 2 puff PO Q4H PRN (Reason: for wheezing) Qty: 8.5 0RF Incruse Ellipta 62.5 mcg/actuation blister with device 1 inh PO DAILY Qty: 30 0RF Breo Ellipta 200-25 mcg/dose blister with device 1 ea PO DAILY Qty: 60 0RF multivitamin [Daily Multi-Vitamin] Tablet 1 tab PO DAILY pravastatin 80 mg tablet 80 mg PO BEDTIME Discharge Orders: Discharge Order (Routine); Ordered 03/12/24 Ordered By: Yordy Coronado Diet: Advance to usual diet Activity on Discharge: As tolerated Stand Alone Forms: Patient Portal Discharge page Print Language: Chinese Care Plan Goals: respiratory health diagnosis of chest wall mass Health Concerns: hypoxia COPD exacerbation chest wall mass Plan of Treatment: prednisone 10 mg tabs, taper as follows: 40 mg (4 tabs) daily x 2 days, then 30 mg (3 tabs) daily x 2 days, then 20 mg (2 tabs) daily x 2 days, then 10 mg (1 tab) daily x 2 days continue inhalers for chest wall pain, use acetaminophen [Tylenol] or lidocaine patch oxygen 3 liters with ambulation limit or eliminate alcohol intake follow up with Dr Mckeon [Pulmonology] in 1 week to arrange Interventional Radiology-guided biopsy of right chest wall mass follow up with Dr Alvarado [Thoracic Surgery] in 1 week to arrange PET-CT scan Please follow up with your primary care doctor within 1 week. Return to the hospital if you experience recurrent or worsening symptoms. Assessment: See Discharge Summary.
== END 2024-03-12 13:36 | disposition home health service (06) | DRG 190 ==
LOC: HO.ED 18:04 → HO.EDOVER 22:05 → HO.S3 03-08 19:38
PROVIDERS: Hospitalist; Physician Assistant; Admitting Provider Internal Medicine; Emergency Provider Internal Medicine; PCP Internal Medicine Medical Oncology; Visit Provider Family Medicine
DX: J43.9 Emphysema, unspecified (principal); J96.01 Acute respiratory failure with hypoxia; E87.21 Acute metabolic acidosis; C34.32 Malignant neoplasm of lower lobe, left bronchus or lung; F10.90 Alcohol use, unspecified, uncomplicated; Z20.822 Contact with and (suspected) exposure to COVID-19; Z87.891 Personal history of nicotine dependence; Z79.899 Other long term (current) drug therapy
CPT/HCPCS: 0241U; 36415; 71046; 71275; 73030; 80048; 80053; 80307; 83605; 83880; 84153; 84484; 85025; 85379; 85610; 85730; 87040; 93005; 93306; 94640; 97162; 99212; 99285; J0456; J0696; J1650; J2270; J2405; J2919; Q9957; Q9967

== ENCOUNTER → 2024-03-07 15:35 | Outpatient (BNV) | payer MEDICARE, SELFPAY | PROVIDERS: Admitting Provider Internal Medicine; Emergency Provider Internal Medicine; PCP Internal Medicine Medical Oncology; Visit Provider Internal Medicine Cardiovascular Disease | DX: R00.0 Tachycardia, unspecified (principal) | CPT/HCPCS: 93010 ==

== ENCOUNTER 2024-03-07 21:53 | Outpatient (BNV) | payer MEDICARE, SELFPAY | END 2024-03-11 15:38 | PROVIDERS: Admitting Provider Internal Medicine; Emergency Provider Internal Medicine; PCP Internal Medicine Medical Oncology; Visit Provider Internal Medicine Cardiovascular Disease | DX: R00.0 Tachycardia, unspecified (principal) | CPT/HCPCS: 93010 ==

== ENCOUNTER 2024-03-07 21:53 | Outpatient (BNV) | payer MEDICARE, SELFPAY | END 2024-03-08 16:00 | PROVIDERS: Admitting Provider Internal Medicine; Emergency Provider Internal Medicine; PCP Internal Medicine Medical Oncology; Visit Provider Internal Medicine Cardiovascular Disease | DX: R06.09 Other forms of dyspnea (principal) | CPT/HCPCS: 93306 ==

== ENCOUNTER → 2024-03-07 21:53 | Outpatient (BNV) | payer MEDICARE, SELFPAY | PROVIDERS: Admitting Provider Internal Medicine; Emergency Provider Internal Medicine; PCP Internal Medicine Medical Oncology; Visit Provider Internal Medicine Pulmonary Disease | DX: J44.1 Chronic obstructive pulmonary disease with (acute) exacerbation (principal); R22.2 Localized swelling, mass and lump, trunk; J96.01 Acute respiratory failure with hypoxia | CPT/HCPCS: 99222 ==

== ENCOUNTER → 2024-03-07 21:53 | Outpatient (BNV) | payer MEDICARE, SELFPAY | PROVIDERS: Admitting Provider Internal Medicine; Emergency Provider Internal Medicine; PCP Internal Medicine Medical Oncology; Visit Provider Internal Medicine | DX: R22.2 Localized swelling, mass and lump, trunk (principal); J96.01 Acute respiratory failure with hypoxia; J44.1 Chronic obstructive pulmonary disease with (acute) exacerbation; F10.90 Alcohol use, unspecified, uncomplicated; R91.8 Other nonspecific abnormal finding of lung field | CPT/HCPCS: 99223; 99232; 99239; 99499; G0180 ==

== ENCOUNTER → 2024-03-07 21:53 | Outpatient (BNV) | payer MEDICARE, SELFPAY | PROVIDERS: Admitting Provider Internal Medicine; Emergency Provider Internal Medicine; PCP Internal Medicine Medical Oncology; Visit Provider Physician Assistant Surgical | DX: R22.2 Localized swelling, mass and lump, trunk (principal) | CPT/HCPCS: 99222; 99232 ==

== ENCOUNTER 2024-03-15 10:32 | Outpatient (AMB) | payer MEDICARE, SELFPAY ==
--- NOTE | 2024-03-15 11:01 | MHC.OFFVIS ---
Vital Signs 03/15/24 11:02 Height 6 ft Weight 210 lb 8.663 oz BMI 28.6 BP 108/54 L Blood Pressure Location Lt brachial Position Sitting Pulse 102 H Pulse Source Pulse Oximeter Pulse Oximetry (%) 99 Oxygen Delivery Method Room Air Intake Visit Reasons: COPD Intake Note: pt is here for follow up and he feels very good today, his shoulder is shot, rib seems to be okay. 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 Required: No Allergies Penicillins [PENICILLINS] Allergy (Intermediate, Verified 03/15/24 11:18) SWELLING Sulfa (Sulfonamide Antibiotics) [Sulfa (Sulfonamides)] Allergy (Mild, Verified 03/15/24 11:18) RASH Medication List - Last Reconciled 03/15/24 by Mary Jo Mckeon MD albuterol sulfate 90 mcg/actuation 2 puffs PO Q4H PRN Breo Ellipta 200-25 mcg/dose (fluticasone furoate-vilanterol) 1 ea PO DAILY NS Incruse Ellipta 62.5 mcg/actuation (umeclidinium) 1 inh PO DAILY NS lidocaine 5% 1 patch topical DAILY multivitamin (Daily Multi-Vitamin tablet) 1 tab PO DAILY pravastatin 80 mg PO BEDTIME prednisone 10 mg PO DIRECTED Do you need a note to return to daycare/school/sports/work: No HPI HPI COPD: Details: MR. CANELA IS 79 YEARS OLD GENTLEMAN. WITH HISTORY OF SMOKING IN THE PAST BUT QUIT MANY YEARS AGO. HE HAS HAD CHRONIC OBSTRUCTIVE PULMONARY DISEASE, FOR MANY YEARS, RELATIVELY CONTROLLED AND STABLE, HE HAS HAD HISTORY OF GETTING ACUTE EXACERBATION ONCE OR TWICE A YEAR EASILY CONTROLLED WITH A SHORT COURSE OF PREDNISONE. AT BASELINE HE USES BREO ELLIPTA 200-25 ONCE A DAY AND INCRUSE ELLIPTA 1 INHALATION DAILY. HE HAS REQUIRED USE OF ALBUTEROL ONLY PERIODICALLY. THIS TIME HE CAME TO THE OFFICE ON 03/08 FOR AN URGENT VISIT HOPING TO GET SOME PREDNISONE. HE DID NOT HAVE HISTORY OF ANY PRIOR RESPIRATORY INFECTION. HE WAS NOTED TO BE HYPOXEMIC ON ROOM AIR, INSTEAD OF BEING SEEN IN THE OFFICE HE WAS SENT TO THE EMERGENCY ROOM, HE WAS ADMITTED TO THE HOSPITAL FOR TREATMENT OF ACUTE EXACERBATION OF COPD. ALSO NOTED TO HAVE A MASS IN THE RIGHT UPPER CHEST, AND PULMONARY NODULES ESPECIALLY IN THE LEFT LOWER LOBE. CTA OF THE CHEST WAS NEGATIVE FOR PULMONARY EMBOLI. THERE WAS FINDING OF A CHEST WALL MASS WITH DESTRUCTIVE LESION IN THE 3RD RIB. IN ADDITION ALSO HAD SMALL MASSLIKE LESIONS IN THE LEFT LOWER LOBE OF THE LUNG. PATIENT WAS TREATED FOR ACUTE EXACERBATION OF COPD WITH THE IV SOLU-MEDROL UNDER COURSE OF ANTIBIOTIC. HE NEEDED OXYGEN BUT WOULD THE END OF HIS HOSPITALIZATION HE NEEDED O2 ONLY WITH EXERCISE. PATIENT DISCHARGED HOME ON03/12 , AND ADVISED TO CONTINUE COMPLETING THE COURSE OF PREDNISONE, ALSO CONTINUE HIS PREVIOUS INHALERS. REFERRED FOR FURTHER WORKUP OUTPATIENT. TODAY HE COMES TO THE OFFICE AND SEEMS TO BE AT HIS BASELINE, AT REST HIS O2 SAT WAS 94-95% AND THE DID NOT NEED OXYGEN. HE DENIES ANY CHEST WALL PAIN. [facility] Medical History COPD exacerbation Upper respiratory infection COPD (chronic obstructive pulmonary disease) Surgical History History of arthroscopy of left knee History of back surgery History of total replacement of both hip joints Social History Household Members: None Housing: House Do you presently have visiting nurse or other home services: No Alcohol intake: current Alcohol intake frequency: a few times a month Alcohol type: beer Patient Tobacco Use Status: Former Tobacco user service: Yes Review of Systems Const All systems reviewed & are unremarkable except as noted in HPI and below Eyes Reports no additional complaints ENT Reports no additional complaints Card Denies chest pain, Denies irregular heart rhythm and Denies leg edema Resp Reports as per HPI GI Reports no additional complaints Reports no additional complaints Musc Reports back pain (mild , if he does any physical work .) Skin/Breast Reports system reviewed and no additional complaints, except as documented Neuro Reports no additional complaints Physical Exam Vital Signs: Last Vital Signs Pulse 102 H 03/15/24 11:02 BP 108/54 L 03/15/24 11:02 Pulse Ox 99 03/15/24 11:02 Oxygen Delivery Method Room Air 03/15/24 11:02 BMI result Body Mass Index 28.6 Const General: comfortable, no acute distress, alert and awake Orientation/consciousness: patient oriented x3 HEENT Head: Yes normal to inspection General nose exam: No nasal polyps present, No nasal discharge present and Other nasal findings present (He does have mild nasal congestion) Face and sinus: Yes sinuses nontender Mouth: oropharynx normal Throat: Yes posterior oropharynx normal and Yes posterior oropharynx abnormal (Slightly erythema) Eyes General: appearance normal, both eyes and all related structures Neck Neck: Yes normal visual inspection, Yes no lymphadenopathy, Yes trachea midline and Yes no JVD Thyroid: Thyroid normal Chest Chest palpation & inspection: normal inspection of the chest, normal palpation of entire chest wall and no tenderness (THERE IS NO LOCALIZED TENDERNESS OF THE RIGHT CHEST WALL) Resp Other: Percussion note is resonant, breath sounds are very distant with prolonged expiratory phase. TODAY HE DOES NOT HAVE ANY AUDIBLE WHEEZES OR RHONCHI. Cardio Palpation: normal PMI Rate: regular rate Rhythm: regular rhythm Heart sounds: no gallops and no murmurs GI Palpation (GI): Soft to palpation, nontender, No hepatosplenomegaly present and no masses Auscultation: normal bowel sounds Back/Spine/Pelvis Thoracic/Lumbar Spine: thoracic and lumbar spine normal to inspection and thoraco-lumbar ROM limited Skin General skin exam: no rashes or lesions noted Neuro General: patient oriented x3 and no focal motor deficits Cranial nerves: Yes CN's II-XII intact bilaterally Extrem General: Yes normal to inspection, Yes no clubbing, cyanosis or edema and Yes no calf tenderness Psych Appearance: grossly normal and well kempt Speech and movement: Normal speech and movement present Results Reviewed Results Reviewed: HOSPITAL COURSE IS REVIEWED. FINDINGS OF CT SCAN REVIEWED WITH THE PATIENT. Assessment & Plan Assessment & Plan (1) COPD exacerbation: Comment: THIS PATIENT HAS LONGSTANDING HISTORY OF CHRONIC OBSTRUCTIVE PULMONARY DISEASE WITH, INTERMITTENT FLARE UPS ABOUT ONCE OR TWICE A YEAR. THIS TIME HE IS TREATED FOR AN ACUTE EXACERBATION, AND HAS IMPROVED BACK TO HIS BASELINE. HE WAS DISCHARGED ON OXYGEN BUT NOW HE DOES NOT NEEDED ALL THE TIMES. HE IS USING IT AT 3 L/MINUTE ONLY WHEN HE GOES OUTDOORS. Code(s): J44.1 - Chronic obstructive pulmonary disease with (acute) exacerbation Category: Medical Plan: CONTINUE BREO ELLIPTA 200-251 INHALATION DAILY INCRUSE ELLIPTA 1 INHALATION DAILY ALBUTEROL HFA 2 PUFFS Q 4-6 HOURS P.R.N.. COMPLETE THE COURSE OF PREDNISONE ( WHICH WILL BE DONE IN 2 DAYS) (2) Chest wall mass: Comment: HE HAS HISTORY OF A RECENT FALL HITTING THE RIGHT SIDE OF THE CHEST, BUT PAIN WAS MINIMAL. AT THE TIME OF ADMISSION CTA OF THE CHEST WAS DONE TO RULE OUT PULMONARY EMBOLI. A MASS IN THE RIGHT UPPER CHEST WITH INVOLVEMENT OF THE 3RD RIB WAS NOTED, QUESTION OF FRACTURE DUE TO THE FALL AND ALSO QUESTION OF NEOPLASTIC PROCESS. Code(s): R22.2 - Localized swelling, mass and lump, trunk Category: Medical Plan: THE PLAN WAS TO ARRANGE FOR A PERCUTANEOUS NEEDLE BIOPSY OUTPATIENT. HOWEVER IN VIEW OF A FEW PULMONARY DENSITIES IN THE LEFT LOWER LOBE, WHICH ALSO REQUIRE FURTHER WORKUP. I THINK WE SHOULD GET A PET SCAN 1ST , AND THEN DECIDE WHICH AREA TO BE BIOPSIED. (3) Lung mass: Comment: A FEW NODULAR DENSITIES NOTED IN THE LEFT LOWER LOBE THE LARGER BEING 2.2 CMs THIS COULD BE INFLAMMATORY VERSUS NEOPLASTIC Code(s): R91.8 - Other nonspecific abnormal finding of lung field Category: Medical Plan: PET SCAN ORDERED Orders: Orders PET CT fusion skull to thigh Today R91.8 - Other nonspecific abnormal finding of lung field Coding Level of Care Code Est Pt Level 3 (15070) Diagnoses COPD exacerbation J44.1 Chest wall mass R22.2 Lung mass R91.8
[2024-03-15 11:02] VITALS: BP 108/54; PULSE 102; O2SAT 99; BMI 28.6
--- OUTSIDE RECORDS SUMMARY | 2024-03-16 19:53 | XMS_ITS ---
Author Organization Koby Peña III, MD Address [address] [place] [place] [address] Care Team Providers Care Blending Machine Feeder Name Role Phone Koby Peña Primary Care Provider [phone] REASON FOR VISIT Message Social History Sex Assigned At : Social History Observation Description Sex Assigned At Male Encounters Encounter Location Date Provider Diagnosis Koby Peña III, MD [address] [place] [address] [place] [address] 03/14/2024 Koby Peña Plan Of Treatment Next Appt Details Provider Name:Koby Peña, 03/17/2024 10:00:00 AM, [address] [place] [address] [place], [address], Provider Name:Koby Peña, 04/04/2024 10:00:00 AM, [address] [place] [address] [place], [address], Provider Name:Koby Peña, 12/02/2024 10:00:00 AM, [address] [place] [address] [place], [address], Progress Notes * Jaren CANELA EDOB:[birth year] (79 yo M)Acc No.[id number]:03/14/2024 Patient:?Jaren CANELA :1945???Age:79 Y???Sex:Male Address:[place] [address] * true * Date:? Generated for Printi ng/Faxing/eTransmitting on:?03/16/2024 07:53 PM EST
--- OUTSIDE RECORDS SUMMARY | 2024-03-16 19:53 | XMS_ITS ---
Author Organization Koby Peña III, MD Address [address] [place] [address] Care Team Providers Care Wool Tamper Name Role Phone Koby Peña Primary Care Provider [phone] REASON FOR VISIT Denying Home Services Social History Sex Assigned At : Social History Observation Description Sex Assigned At Male Encounters Encounter Location Date Provider Diagnosis Koby Peña III, MD [address] [place] [address] [place] [address] 03/15/2024 Koby Peña Plan Of Treatment Next Appt Details Provider Name:Koby Peña, 03/17/2024 10:00:00 AM, [address] [place] [address] [place], [address], Provider Name:Koby Peña, 04/04/2024 10:00:00 AM, [address] [place] [address] [place], [address], Provider Name:Koby Peña, 12/02/2024 10:00:00 AM, [address] [place] [address] [place], [address], Progress Notes * Jaren CANELA EDOB:[birth year] (79 yo M)Acc No.[id number]:03/15/2024 Patient:?Jaren CANELA :1945???Age:79 Y???Sex:Male Address:[place] [address] * true * Date:? Generated for Printi ng/Faxing/eTransmitting on:?03/16/2024 07:53 PM EST
--- OUTSIDE RECORDS SUMMARY | 2024-03-16 19:54 | XMS_ITS ---
Author Organization Koby Peña III, MD Address [address] [place] [address] Care Team Providers Care Chief Knowledge Officer Name Role Phone Koby Peña Primary Care Provider Allergies Allergen (clinical drug ingredient) Drug/Non Drug Allergy documented on EMR Reaction Allergy Type Onset Date Status Penicillin Unknown Drug Allergy Active Substance with sulfonamide structure and antibacterial mechanism of action (substance) Sulfa Antibiotics Unknown Drug Allergy Active Results Component Value Reference Range Notes URINE DIP STICK Reviewed date:12/03/2023 11:02:19 AM Interpretation: Performing Lab: Notes/Report: SG 1.005 1.005 - 1.025 pH 7.5 5.0 - 9.0 BETH 70 Negative - NIT Negative Negative - PRO 15 Negative - Trace GLU Negative Negative - KET Negative Negative - UBG 0.2 0.1 - 1.8 VIET Negative 0.2 - 1.3 BLD 5-10 Negative - REASON FOR VISIT Annual Exam Medications Medication SIG (Take, Route, Frequency, Duration) Notes Start Date End Date Status Breo Ellipta 200-25 MCG/INH Inhalation Active Incruse Ellipta 62.5 MCG/INH INHALE 1 PUFF BY MOUTH DAILY Inhalation Active Pravastatin Sodium 80 MG take 1 tablet b y mouth every day Active Albuterol Sulfate HFA 108 (90 Base) MCG/ACT Inhalation Active Social History Tobacco Use: Social History Observation Description Date Details (start date - stop date) Former Smoker NA - NA Sex Assigned At : Social History Observation Description Sex Assigned At Male Tobacco Use/Smoking Question Answer Notes Patient is a former smoker How long has it been since you last smoked? > 10 years Additional Findings: Tobacco Non-User Ex-cigaret te smoker Alcohol Screen Question Answer Notes Did you have a drink containing alcohol in the p ast year? No Points 0 Interpretation Negative Vital Signs Temperature 97.7 degrees Fahrenheit 12/03/19 24 Blood pressure systolic 113 mm Hg 12/03/19 24 Blood pressure diastolic 76 mm Hg 024 Heart Rate 90 /min 12/03/2023 Height 72 in 12/03/2023 Weight 216 lbs 12/03/2023 BMI 29.29 kg/m2 12/03/2023 Encounters Encounter Location Date Provider Diagnosis Koby Peña III, MD [address] [place] [address] [place] [address] 12/03/2023 Koby Peña Mixed hyperlipidemia E78.2 ; Benign prostatic hyperplasia with lower urinary tract symptoms N40.1 ; COPD (chronic obstructive pulmonary disease) J44.9 ; Pulmonary emphysema, unspecified emphysema type J43.9 ; ASHD (arteriosclerotic heart disease) I25.10 ; Primary osteoarthritis of both knees M17.0 ; Overweight E66.3 and Former smoker Z87.891 Assessments Encounter Date Diagnosis (ICD Code) Assessment Notes Treat ment Notes Treatment Clinical Notes 12/03/2023 Mixed hyperlipidemia (ICD-10 - E78.2) His total cholesterol is 159 with an LDL of 142. He was continued on the same dose of medication. I recommended aggressive weight loss. His body mass index is 29. 12/03/2023 Benign prostatic hyperplasia with lower urinary tract symptoms (ICD-10 - N40.1) He rises from sleep once and sometimes twice a night. He had no nodules in his prostate. We discussed modifications to his lifestyle he could make to reduce nocturia. 12/03/2023 COPD (chronic obstructive pulmonary disease) (ICD-10 - J44.9) He is not smoking and he is comfortable at rest. His dyspnea is only with exertion. It remained stable and no change in his regimen is needed today. He has been to the pulmonary physician recently and does not qualify for home oxygen. 12/03/2023 Pulmonary emphysema, unspecified emphysema type (ICD-10 - J43.9) His lung disease is stable. He is no longer smoking. He is short of breath with exertion but not during the course of daily life. 12/03/2023 ASHD (arteriosclerotic heart disease) (ICD-10 - I25.10) He denies any recent angina palpitations or syncope. Current therapy was continued. 12/03/2023 Primary osteoarthritis of both knees (ICD-10 - M17.0) He has had knee surgery. He will continue on current therapy and be monitored carefully. 12/03/2023 Overweight (ICD-10 - E66.3) He has gained 2 pounds. His body mass index is 29. We made a plan to lose weight at a rate of one half of a pound per week 12/03/2023 Former smoker (ICD-1 0 - Z87.891) He seems motivated not to smoke. We formulated a plan to prevent relapse in time to stress and illness. Plan Of Treatment Medication Medication Name Sig Start Date Stop Date Notes Breo Ellipta 200-25 MCG/INH Inhalation Incruse Ellipta 62.5 MCG/INH INHALE 1 PU FF BY MOUTH DAILY Inhalation Pravastatin Sodium 80 MG take 1 tablet b y mouth every day Albuterol Sulfate HFA 108 (9 0 Base) MCG/ACT Inhalation Pending Test Test Name Order Date PROFILE, FASTING (COMPREHENSIVE METABOLI C) 12/03/2023 PSA, TOTAL 12/03/2023 CBC WITH AUTO DIFF 12/03/2023 Lipid Panel 12/03/2023 Next Appt Details Follow Up: 4 Months, Reason: OV Provider Name:Koby Peña, 03/17/2024 10:00:00 AM, [address] [place] [address] [address], [place], [id number], Provider Name:Koby Peña, 04/04/2024 10:00:00 AM, [address] [place] [address] [address] [place]ST[place], KAMILLA MCINTYRE, [phone], Provider Name:Koby Peña, 12/02/2024 10:00:00 AM, [address] [place] [address] [place], [id number], Progress Notes * Jaren CANELA EDOB:[birth year] (78 yo M)Acc No.[id number]:12/03/2023 Progress Notes Patient:?Jaren Canela Provider:?Koby Peña MD :1945???Age:78 Y???Sex:Male Rey e:12/03/2023 Address:[address] [facility], [id number] Subjective: * Chief Complaints: * ???Annual Exam * HPI: ???Depression Screening:? He returns to the office at the age of 78 for his annual physical examination. Since his last visit he has been feeling healthy and well. His breathing is stable. He is not short of breath unless he exerts himself. He has had no cough or hemoptysis recently.He has had no angina or palpitations no syncope. He rises from sleep twice a night to urinate.He takes chondroitin every day. He has occasional sciatica.His hips no longer hurt. He has occasional pain in his left knee with walking. He has lost 4 pounds. His oxygen saturation is 96% at rest. ?PHQ-9?Little interest or pleasure in doing things?Not at all ?Feeling down, depressed, or hopeless?Not at all ?Trouble falling or staying asleep, or sleeping too much?Not at all ?Feeling tired or having little energy?Not at all ?Poor appetite or overeating?Not at all ?Feeling bad about yourself or that you are a failure, or have let yourself or your family down?Not at all ?Trouble concentrating on things, such as reading the newspaper or watching television?Not at all ?Moving or speaking so slowly that other people could have noticed; or the opposite, being so fidgety or restless that you have been moving around a lot more than usual?Not at all ?Thoughts that you would be better off or of hurting yourself in some way?Not at all ?Total Score?0 ???COVID-19 Screening:? feels good, bsreathing is good and bad days, no change,, nocturia x 2, no angina, left knee ok chondroitin daily, occ rifght sciatica, hips ok, nsr, down 4 lbs o2 sat 96%. ?Questions?Have you experienced fever, chills, cough, sore throat, shortness of breath, difficulty breathing, muscle aches, loss of taste or smell??No ?Have you been exposed to the virus within the last 10 days??No ?Have you travelled internationally in the last 10 days??No ?Have you been exposed to COVID-19 in the past??No ???SDOH Questions:?SDOH Questions?In the past year have you been worried about losing your housing??No ?In the past year have you or any family members you live with been unable to get any of the following when it was really needed? Check all that apply:?None * ROS:?General/Constitutional:?pain?Hips and knees.?Chills?denies.?Fatigue?admits.?Fever?denies.?ENT:?Decreased hearing?mild.?Respiratory:?Cough?denies.?Cardiovascular:?Chest pain with exertion?denies.?Dyspnea on exertion?with moderate activity.?Shortness of breath?that is moderate.?Gastrointestinal:?Constipation?occasional.?Decreased appetite?denies.?Diarrhea?denies.?Heartburn?denies.?Nausea?denies.?Rectal bleeding?denies.?Vomiting?denies.?Hematology:?bruising?denies.?petechiae?denies.?Swollen glands?none have been noted.?Genitourinary:?Frequent urination?once a night.?Musculoskeletal:?Muscle aches?denies.?Painful joints?denies.?Sciatica?denies.?Weakness?denies.?Skin:?Itching?denies.?Rash?denies.?Skin lesion(s)?denies.?Neurologic:?Difficulty speaking?denies.?Dizziness?denies.?Headache?denies.?Low back pain?that is chronic.?Psychiatric:?Depressed mood?denies.? * Medical History:? * Surgical History:?fracture r ight arm age 18 1964bilateral knee replacements Bronchoscopy for interstitial pneumonia, [facility] 07/2007Direct laryngoscopy with biopsy of paralyzed left vocal cord, Dr. De León 03/2009Incomplete colonoscopy, [facility], Dr. Mo, severe sigmoid diverticulosis 01/2010Partial left medial meniscectomy and debridement, [place]. Armand Milner, [facility] [place]lumbar spine fusion, [facility] [place] 2016Upper endoscopy and colon[place] [facility] [place] for iron deficiency anemia 04/2018 * Hospitalization/Major Diagno stic Procedure:?Denies Past Hospitalization * Family History:?Father: 59 y rs, copd, pneumonia.?Mother: 78 yrs, chf.?1 brother(s) , 2 sister(s) . .? His father of pulmonary disease and his mother of chronic renal failure complications. He has a brother with hepatitis C and 2 healthy sisters. There is no family history of breast cancer or uterine cancer or ovarian cancer. A cousin and an aunt have had colon cancer. He has no children. He is not aware of any family history of mental illness or addiction or substance abuse. * Social History:?Tobacco Use:?Tobacco Use/Smoking?Patient is a?former smoker ?How long has it been since you last smoked??> 10 years ?Additional Findings: Tobacco Non-User?Ex-cigarette smoker ???Drugs/Alcohol:?Drugs?Have you used drugs other than those for medical reasons in the past 12 months??No ?Alcohol Screen?Did you have a drink containing alcohol in the past year??No ?Points?0 ?Interpretation?Negative ???He was born in [facility]. 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 He has had no toxic exposures. He has no zoroastrian objections to blood transfusion. He lives in [facility] [place] with his sister. * Medications:?TakingIncruse E llipta 62.5 MCG/INH Aerosol Powder Breath Activated INHALE 1 PUFF BY MOUTH DAILY Inhalation Breo Ellipta 200-25 MCG/INH Aerosol Powder Breath Activated Inhalation Albuterol Sulfate HFA 108 (90 Base) MCG/ACT Aerosol Solution Inhalation Pravastatin Sodium 80 MG Tablet take 1 tablet by mouth every day Medication List reviewed and reconciled with the patientTaking Incruse Ellipta 62.5 MCG/INH Aerosol Powder Breath Activated INHALE 1 PUFF BY MOUTH DAILY Inhalation Taking Breo Ellipta 200-25 MCG/INH Aerosol Powder Breath Activated Inhalation Taking Albuterol Sulfate HFA 108 (90 Base) MCG/ACT Aerosol Solution Inhalation Taking Pravastatin Sodium 80 MG Tablet take 1 tablet by mouth every day Medication List reviewed and reconciled with the patient * Allergies:?Penicillin: Aller gySulfa Antibiotics: Allergyno[Allergies Verified] Objective: * Vitals:?Ht: 72, Wt:216, BMI: 29.29, BP:113/76, HR:90, Temp:97.7, Wt-k.98. * ???Past Orders: Lab:Lipid Panel * Order Date 11/26/2023 08/04/2023 03/24/2023 Triglycerides 159?H (Ref Range: <150 mg/dL) 160?H (Ref Range: <150 mg/dL) 163?H (Ref Range: <150 mg/dL) Cholesterol 216?H (Ref Range: <200 mg/dL) 203?H (Ref Range: <200 mg/dL) 199 (Ref Range: <200 mg/dL) LDL Cholesterol Calculated 142?H (Ref Range: <100 mg/dL) 130?H (Ref Range: <100 mg/dL) 131?H (Ref Range: <100 mg/dL) HDL Cholesterol 43 (Ref Range: >40 mg/dL) 41 (Ref Range: >40 mg/dL) 36?L (Ref Range: >40 mg/dL) * Lab:Omar booker Fast * Order Date 11/26/2023 08/04/2023 03/24/2023 Sodium 144 (Ref Range: 135-145 mmol/L) 141 (Ref Range: 135-145 mmol/L) 142 (Ref Range: 135-145 mmol/L) Bilirubin Total 0.5 (Ref Range: 0.0-1.0 mg/dL) 0.4 (Ref Range: 0.0-1.0 mg/dL) 0.5 (Ref Range: 0.0-1.0 mg/dL) Aspartate Amino Transferase 22 (Ref Range: 5-37 U/L) 20 (Ref Range: 5-37 U/L) 16 (Ref Range: 5-37 U/L) Alanine Aminotransferase 16 (Ref Range: 0-40 U/L) 15 (Ref Range: 0-40 U/L) 13 (Ref Range: 0-40 U/L) Total Protein 7.3 (Ref Range: 6.5-8.0 g/dL) 7.5 (Ref Range: 6.5-8.0 g/dL) 7.5 (Ref Range: 6.5-8.0 g/dL) Albumin Level 4.1 (Ref Range: 3.5-5.0 g/dL) 4.1 (Ref Range: 3.5-5.0 g/dL) 4.0 (Ref Range: 3.5-5.0 g/dL) Alkaline Phosphatase 125?H (Ref Range: 39-117 U/L) 137?H (Ref Range: 39-117 U/L) 162?H (Ref Range: 39-117 U/L) Potassium 4.3 (Ref Range: 3.3-5.1 mmol/L) 4.3 (Ref Range: 3.3-5.1 mmol/L) 4.4 (Ref Range: 3.3-5.1 mmol/L) Chloride 107 (Ref Range: 96-108 mmol/L) 105 (Ref Range: 96-108 mmol/L) 106 (Ref Range: 96-108 mmol/L) Carbon Dioxide 29 (Ref Range: 22-29 mmol/L) 27 (Ref Range: 22-29 mmol/L) 27 (Ref Range: 22-29 mmol/L) Anion Gap 12 (Ref Range: 12-20) 13 (Ref Range: 12-20) 13 (Ref Range: 12-20) Blood Urea Nitrogen 16 (Ref Range: 9-16 mg/dL) 16 (Ref Range: 9-16 mg/dL) 14 (Ref Range: 9-16 mg/dL) Creatinine 0.81 (Ref Range: 0.5-1.4 mg/dL) 0.78 (Ref Range: 0.5-1.4 mg/dL) 0.80 (Ref Range: 0.5-1.4 mg/dL) Estimated Glomerular Filt Rate > 60 > 60 > 60 Glucose Fasting 100?H (Ref Range: 60-99 mg/dL) 95 (Ref Range: 60-99 mg/dL) 98 (Ref Range: 60-99 mg/dL) Calcium 10.0 (Ref Range: 8.4-10.2 mg/dL) 9.8 (Ref Range: 8.4-10.2 mg/dL) 9.8 (Ref Range: 8.4-10.2 mg/dL) * Lab:Complete Blood Count Aut o Diff * Order Date 11/26/2023 08/04/2023 03/24/2023 White Blood Count 8.0 (Ref Range: 4.8-10.8 X10*3/uL) 8.8 (Ref Range: 4.8-10.8 X10*3/uL) 9.9 (Ref Range: 4.8-10.8 X10*3/uL) Red Blood Count 5.10 (Ref Range: 4.60-5.80 X10*6/uL) 5.14 (Ref Range: 4.60-5.80 X10*6/uL) 4.95 (Ref Range: 4.60-5.80 X10*6/uL) Hemoglobin 15.6 (Ref Range: 14.0-18.0 g/dl) 15.9 (Ref Range: 14.0-18.0 g/dl) 15.2 (Ref Range: 14.0-18.0 g/dl) Hematocrit 46.6 (Ref Range: 42.0-52.0 %) 47.2 (Ref Range: 42.0-52.0 %) 46.1 (Ref Range: 42.0-52.0 %) Mean Corpuscular Volume 91.4 (Ref Range: 80.0-98.0 fL) 91.8 (Ref Range: 80.0-98.0 fL) 93.1 (Ref Range: 80.0-98.0 fL) Mean Corpuscular Hemoglobin 30.6 (Ref Range: 27.0-33.0 pg) 30.9 (Ref Range: 27.0-33.0 pg) 30.7 (Ref Range: 27.0-33.0 pg) Mean Corpuscular HGB Conc 33.5 (Ref Range: 31.0-36.0 g/dl) 33.7 (Ref Range: 31.0-36.0 g/dl) 33.0 (Ref Range: 31.0-36.0 g/dl) Red Cell Distribution Width 14.3 (Ref Range: 11.0-16.0 %) 14.4 (Ref Range: 11.0-16.0 %) 13.7 (Ref Range: 11.0-16.0 %) Platelet Count 239 (Ref Range: 160-400 X10*3/uL) 203 (Ref Range: 160-400 X10*3/uL) 218 (Ref Range: 160-400 X10*3/uL) Mean Platelet Volume 8.5?L (Ref Range: 9.4-12.4 fL) 8.8?L (Ref Range: 9.4-12.4 fL) 8.9?L (Ref Range: 9.4-12.4 fL) Neutrophils Percent Auto 67.6 (Ref Range: 45-73 %) 71.6 (Ref Range: 45-73 %) 76.6?H (Ref Range: 45-73 %) Imm Gran Pct Auto 0.2 (Ref Range: 0.0-0.4 %) 0.3 (Ref Range: 0.0-0.4 %) 0.5?H (Ref Range: 0.0-0.4 %) Lymphocytes Percent Auto 20.7 (Ref Range: 20-40 %) 18.2?L (Ref Range: 20-40 %) 13.8?L (Ref Range: 20-40 %) Monocytes Percent Auto 9.2 (Ref Range: 2-11 %) 7.9 (Ref Range: 2-11 %) 7.0 (Ref Range: 2-11 %) Eosinophils Percent Auto 1.9 (Ref Range: 0-4 %) 1.8 (Ref Range: 0-4 %) 1.9 (Ref Range: 0-4 %) Basophils Percent Auto 0.4 (Ref Range: 0-2 %) 0.2 (Ref Range: 0-2 %) 0.2 (Ref Range: 0-2 %) NRBC Pct Auto 0.0 (Ref Range: 0.0-0.2 /100WBC) 0.0 (Ref Range: 0.0-0.2 /100WBC) 0.0 (Ref Range: 0.0-0.2 /100WBC) Neutrophils Absolute Auto 5.4 (Ref Range: 2.0-8.3 x10*3/uL) 6.3 (Ref Range: 2.0-8.3 x10*3/uL) 7.6 (Ref Range: 2.0-8.3 x10*3/uL) Imm Gran Abs Auto 0.02 (Ref Range: 0.00-0.03 X10*3/uL) 0.03 (Ref Range: 0.00-0.03 X10*3/uL) 0.05?H (Ref Range: 0.00-0.03 X10*3/uL) Lymphocytes Absolute Auto 1.7 (Ref Range: 1.2-4.9 X10*3/uL) 1.6 (Ref Range: 1.2-4.9 X10*3/uL) 1.4 (Ref Range: 1.2-4.9 X10*3/uL) Monocytes Absolute Auto 0.7 (Ref Range: 0.1-1.2 X10*3/uL) 0.7 (Ref Range: 0.1-1.2 X10*3/uL) 0.7 (Ref Range: 0.1-1.2 X10*3/uL) Eosinophils Absolute Auto 0.2 (Ref Range: 0.0-0.4 X10*3/uL) 0.2 (Ref Range: 0.0-0.4 X10*3/uL) 0.2 (Ref Range: 0.0-0.4 X10*3/uL) Basophils Absolute Auto 0.0 (Ref Range: 0.0-0.2 X10*3/uL) 0.0 (Ref Range: 0.0-0.2 X10*3/uL) 0.0 (Ref Range: 0.0-0.2 X10*3/uL) NRBC Abs Auto 0.000 (Ref Range: 0.0-0.012 X10*3/uL) 0.000 (Ref Range: 0.0-0.012 X10*3/uL) 0.000 (Ref Range: 0.0-0.012 X10*3/uL) * Lab:Prostate Specific Antige n * Order Date 11/26/2023 03/24/2023 09/03/2021 Prostate Specific Antigen 1.46 (Ref Range: <0.05-4.0 ng/mL) 1.11 (Ref Range: <0.05-4.0 ng/mL) 2.42 (Ref Range: <0.05-4.0 ng/mL) * Lab:URINE DIP STICK * Order Date 12/03/2023 11/28/2022 11/27/2021 Result: Normal SG 1.005 (Ref Range: 1.005 - 1.025) 1.010 (Ref Range: 1.005 - 1.025) 1.025 pH 7.5 (Ref Range: 5.0 - 9.0) 8.0 (Ref Range: 5.0 - 9.0) 5 BETH 70 (Ref Range: Negative -) Negative (Ref Range: Negative -) neg NIT Negative (Ref Range: Negative -) Negative (Ref Range: Negative -) neg PRO 15 (Ref Range: Negative - Trace) 15 (Ref Range: Negative - Trace) trace GLU Negative (Ref Range: Negative -) Negative (Ref Range: Negative -) normal KET Negative (Ref Range: Negative -) Negative (Ref Range: Negative -) neg UBG 0.2 (Ref Range: 0.1 - 1.8) 0.2 (Ref Range: 0.1 - 1.8) normal VIET Negative (Ref Range: 0.2 - 1.3) Negative (Ref Range: 0.2 - 1.3) neg BLD 5-10 (Ref Range: Negative -) Negative (Ref Range: Negative -) neg Menstrating NR N/A n/a * Examination: ???General Examination: ?GENERAL APPEARANCE:?pleasant, well nourished, well developed, in no acute distress, calm and relaxed , overweight , elderly man.?HEAD:?atraumatic, normocephalic.?EYES:?eomi, perrla, anicteric, conjugate.?EARS:?normal.?NOSE:?septum intact.?ORAL CAVITY:?normal, unremarkable.?NECK/THYROID:?no jugular venous distention, no carotid bruit, thyroid normal.?LYMPH NODES:?no enlarged lymph nodes,spleen normal.?SKIN:?no suspicious lesions, anicteric.?HEART:?no clicks, gallops, murmurs, or rubs, regular rhythm, S1, S2 normal, no s3, or vascular bruits.?LUNGS:?, diminished breath sounds throughout , scattered inspiratory wheezes.?BREASTS:??no masses palpable bilaterally.?ABDOMEN:?bowel sounds normal, no ascites, no organomegaly, no mass , overweight.?RECTAL EXAM:?, stool guaiac negative , prostate normal , no masses palpable.?MUSCULOSKELETAL:?extremities unremarkable, no clubbing, cyanosis or edema.?PERIPHERAL PULSES:?normal.?NEUROLOGIC:?alert and oriented, cranial nerves 2-12 grossly intact, deep tendon reflexes 2+ symmetrical, motor strength normal upper and lower extremities, sensory exam intact.?PSYCH:?alert, oriented.? Assessment: * Assessment: 1.?Mixed hyperlipidemia - E7 8.2, His total cholesterol is 159 with an LDL of 142. He was continued on the same dose of medication. I recommended aggressive weight loss. His body mass index is 29.?2.?Benign prostatic hyperplasia with lower urinary tract symptoms - N40.1, He rises from sleep once and sometimes twice a night. He had no nodules in his prostate. We discussed modifications to his lifestyle he could make to reduce nocturia.?3.?COPD (chronic obstructive pulmonary disease) - J44.9, He is not smoking and he is comfortable at rest. His dyspnea is only with exertion. It remained stable and no change in his regimen is needed today. He has been to the pulmonary physician recently and does not qualify for home oxygen.?4.?Pulmonary emphysema, unspecified emphysema type - J43.9, His lung disease is stable. He is no longer smoking. He is short of breath with exertion but not during the course of daily life.?5.?ASHD (arteriosclerotic heart disease) - I25.10, He denies any recent angina palpitations or syncope. Current therapy was continued.?6.?Primary osteoarthritis of both knees - M17.0, He has had knee surgery. He will continue on current therapy and be monitored carefully.?7.?Overweight - E66.3, He has gained 2 pounds. His body mass index is 29. We made a plan to lose weight at a rate of one half of a pound per week?8.?Former smoker - Z87.891, He seems motivated not to smoke. We formulated a plan to prevent relapse in time to stress and illness.? Plan: * Treatment: 2.?Benign prostatic hyperpla marilu with lower urinary tract symptoms?LAB: PROFILE, FASTING (COMPREHENSIVE METABOLIC) ?LAB: PSA, TOTAL ?LAB: CBC WITH AUTO DIFF ?LAB: Lipid Panel * Labs:? * ?Lab: URINE DIP STICK ? Value Reference Range ?SG 1.005 1.005 - 1.025 * ?pH 7.5 5.0 - 9.0 * ?BETH 70 Negative - * ?NIT Negative Negative - * ?PRO 15 Negative - Trac e * ?GLU Negative Negative - * ?KET Negative Negative - * ?UBG 0.2 0.1 - 1.8 * ?VIET Negative 0.2 - 1.3 * ?BLD 5-10 Negative - * Procedure Codes:?99752 URINE -NO MICRO * Preventive Medicine:? ??Counseling:?Care goal follow-up plan:?Counseling for abnormal BMI given?Yes ?Above Normal BMI Follow-up?Dietary management education, guidance, and counseling, Dietary needs education ?Smoking/Tobacco Use?Patient counseled on the dangers of tobacco use and urged to quit.?12/03/2023 ??COPD Care Plan:?Patient Lifestyle Goals?Be able to be more active with friends and family, Reduce number of ED and hospitalizations, Relieve symptoms and improve quality of life.?Treatment Goals?Exercise to help whole body, including lungs, Eat a nutritious diet and increase water consumption to 6-8 glasses a day.?Barriers?no barriers.?Self-Managment Goals?Get an air purifier for the rooms you are in the most, Eat a healthy diet, Exercise at least 3xs per week for at least 30 mins.? * Follow Up:?4 Months (Reason: OV) * Images: * Sign off status: Completed true * Provider:?Koby Peña MD Date:?11/05 Generated for Elisabeth andersen/Dina/Kelechi on:?03/16/2024 07:53 PM EST History and Physical Notes * HPI (History of Present Illness) Category Sub-Category Detail Notes Depression Screening PHQ-9 Little inte rest or pleasure in doing things: Not at all Feeling down, depressed, or hopeless: No t at all Trouble falling or staying asleep, or sl eeping too much: Not at all Feeling tired or having little energy: N ot at all Poor appetite or overeating: Not at all Feeling bad about yourself o r that you are a failure, or have let yourself or your family down: Not at all Trouble concentrating on thi ngs, such as reading the newspaper or watching television: Not at all Moving or speaking so slowly that other people could have noticed; or the opposite, being so fidgety or restless that you have been moving around a lot more than usual: Not at all Thoughts that you would be b ann marie off or of hurting yourself in some way: Not at all Total Score: 0 COVID-19 Screening Questions Have you had any new onset fever, chills, cough, congestion, sore throat, shortness of breath, muscle aches?: No Have you been exposed to the virus withi n the last 10 days?: No Have you travelled internationally in e last 10 days?: No Have you been exposed to COVID-19 in the past?: No SDOH Questions SDOH Questions In the past year have you been worried about losing your housing?: No In the past year have you or any family members you live with been unable to get any of the following when it was really needed? Check all that apply:: None Examination Category Sub-Category Detail Notes General Examination GENERAL APPEARANCE: pleasant , well nourished, well developed, in no acute distress, calm and relaxed , overweight , elderly man HEAD: atraumatic, normocep halic EYES: eomi, perrla, anicte lyle, conjugate EARS: normal NOSE: septum intact NECK/THYROID: no jugular venous di stention, no carotid bruit, thyroid normal HEART: no clicks, gallops, murmurs, or rubs, regular rhythm, S1, S2 normal, no s3, or vascular bruits LUNGS: , diminished breath sounds throughout , scattered inspiratory wheezes ABDOMEN: bowel sounds normal, no ascites, no organomegaly, no mass , overweight NEUROLOGIC: alert and oriented, cranial nerves 2-12 grossly intact, deep tendon reflexes 2+ symmetrical, motor strength normal upper and lower extremities, sensory exam intact SKIN: no suspicious lesion s, anicteric PERIPHERAL PULSES: normal BREASTS: no masses palpable b ilaterally MUSCULOSKELETAL: extremities unremark able, no clubbing, cyanosis or edema LYMPH NODES: no enlarged lymph no bonny,spleen normal RECTAL EXAM: , stool guaiac negat apoorva , prostate normal , no masses palpable PSYCH: alert, oriented ORAL CAVITY: normal, unremarkable
--- OUTSIDE RECORDS SUMMARY | 2024-03-16 19:54 | XMS_ITS | Patient Health Record ---
Author Organization Koby Peña III, MD Address [address] [place] [address] Care Team Providers [employer] Name Role Phone Koby Peña Primary Care Provider Allergies Allergen (clinical drug ingredient) Drug/Non Drug Allergy documented on EMR Reaction Allergy Type Onset Date Status Penicillin Unknown Drug Allergy Active Substance with sulfonamide structure and antibacterial mechanism of action (substance) Sulfa Antibiotics Unknown Drug Allergy Active Results Component Value Reference Range Notes Complete Blood Count Auto Di ff Reviewed date:03/31/2023 10:45:16 AM Interpretation: Performing Lab:[facility], [address] [place] [phone] Notes/Report: White Blood Count 9.9 4.8-10.8 X10*3/uL Red Blood Count 4.95 4.60-5.80 X10*6/uL Hemoglobin 15.2 14.0-18.0 g/dl Hematocrit 46.1 42.0-52.0 % Mean Corpuscular Volume 93.1 80.0-98.0 fL Mean Corpuscular Hemoglobin 30.7 27.0-33.0 pg Mean Corpuscular HGB Conc 33.0 31.0-36.0 g/dl Red Cell Distribution Width 13.7 11.0-16.0 % Platelet Count 218 160-400 X10*3/uL Mean Platelet Volume 8.9 9.4-12.4 fL Neutrophils Percent Auto 76.6 45-73 % Imm Gran Pct Auto 0.5 0.0-0.4 % Lymphocytes Percent Auto 13.8 20-40 % Monocytes Percent Auto 7.0 2-11 % Eosinophils Percent Auto 1.9 0-4 % Basophils Percent Auto 0.2 0-2 % NRBC Pct Auto 0.0 0.0-0.2 /100WBC Neutrophils Absolute Auto 7.6 2.0-8.3 x10*3/uL Imm Gran Abs Auto 0.05 0.00-0.03 X10*3/uL Lymphocytes Absolute Auto 1.4 1.2-4.9 X10*3/uL Monocytes Absolute Auto 0.7 0.1-1.2 X10*3/uL Eosinophils Absolute Auto 0.2 0.0-0.4 X10*3/uL Basophils Absolute Auto 0.0 0.0-0.2 X10*3/uL NRBC Abs Auto 0.000 0.0-0.012 X10*3/uL Comprehensive [place]. Panel Fa st Reviewed date:03/31/2023 10:45:16 AM Interpretation: Performing Lab:[address] [phone] Notes/Report: Sodium 142 135-145 mmol/L Potassium 4.4 3.3-5.1 mmol/L Chloride 106 96-108 mmol/L Carbon Dioxide 27 22-29 mmol/L Anion Gap 13 12-20 Blood Urea Nitrogen 14 9-16 mg/dL Creatinine 0.80 0.5-1.4 mg/dL Estimated Glomerular Filt Rate > 60 NOTE: For -Albanian individuals, multiply the result by 1.210. Chronic Kidney Disease: Estimated GFR < 60 mL/min/1.73m2 Severe Kidney Disease: Estimated GFR < 15 mL/min/1.73m2 Glucose Fasting 98 60-99 mg/dL Calcium 9.8 8.4-10.2 mg/dL Bilirubin Total 0.5 0.0-1.0 mg/dL Aspartate Amino Transferase 16 5-37 U/L Alanine Aminotransferase 13 0-40 U/L Total Protein 7.5 6.5-8.0 g/dL Albumin Level 4.0 3.5-5.0 g/dL Alkaline Phosphatase 162 39-117 U/L Lipid Panel Reviewed date:03/31/2023 10:45:16 AM Interpretation: Performing Lab:[address] [phone] Notes/Report: Triglycerides 163 <150 mg/dL Desirable Triglyceride: less than 150 mg/dL Borderline High Triglyceride 150-199 mg/dL High Triglyceride: 200-499 mg/dL Very High Triglyceride: greater than or equal to 5OO mg/dL Cholesterol 199 <200 mg/dL Desirable Cholesterol: less than 200 mg/dL Borderline High Cholesterol: 200-239 mg/dL High Cholesterol: greater than 239 mg/dL LDL Cholesterol Calculated 131 <100 mg/dL Desirable LDL: less than 100 mg/dL Near Optimal/Above Optimal LDL: 110-129 mg/dL Borderline High LDL: 130-159 mg/dL High LDL: 160-189 mg/dL Very High LDL: greater than or equal to 190 mg/dL HDL Cholesterol 36 >40 mg/dL Desirable HDL: greater than 40 mg/dL Note: This HDL assay may give artificially low results in patients with liver disease. Prostate Specific Antigen Reviewed date:03/31/2023 10:45:16 AM Interpretation: Performing Lab:[facility], [address] [place] [phone] Notes/Report: Prostate Specific Antigen 1.11 <0.05-4.0 ng/mL PSA methodology: Davila Alinity i Chemiluminescent Microparticle Immunoassay (CMIA) Complete Blood Count Auto Di ff Reviewed date:08/09/2023 01:08:24 PM Interpretation: Performing Lab:[facility], [address] [place] [phone] Notes/Report: White Blood Count 8.8 4.8-10.8 X10*3/uL Red Blood Count 5.14 4.60-5.80 X10*6/uL Hemoglobin 15.9 14.0-18.0 g/dl Hematocrit 47.2 42.0-52.0 % Mean Corpuscular Volume 91.8 80.0-98.0 fL Mean Corpuscular Hemoglobin 30.9 27.0-33.0 pg Mean Corpuscular HGB Conc 33.7 31.0-36.0 g/dl Red Cell Distribution Width 14.4 11.0-16.0 % Platelet Count 203 160-400 X10*3/uL Mean Platelet Volume 8.8 9.4-12.4 fL Neutrophils Percent Auto 71.6 45-73 % Imm Gran Pct Auto 0.3 0.0-0.4 % Lymphocytes Percent Auto 18.2 20-40 % Monocytes Percent Auto 7.9 2-11 % Eosinophils Percent Auto 1.8 0-4 % Basophils Percent Auto 0.2 0-2 % NRBC Pct Auto 0.0 0.0-0.2 /100WBC Neutrophils Absolute Auto 6.3 2.0-8.3 x10*3/uL Imm Gran Abs Auto 0.03 0.00-0.03 X10*3/uL Lymphocytes Absolute Auto 1.6 1.2-4.9 X10*3/uL Monocytes Absolute Auto 0.7 0.1-1.2 X10*3/uL Eosinophils Absolute Auto 0.2 0.0-0.4 X10*3/uL Basophils Absolute Auto 0.0 0.0-0.2 X10*3/uL NRBC Abs Auto 0.000 0.0-0.012 X10*3/uL Comprehensive [place]. Panel Fa Reviewed date:08/09/2023 01:08:24 PM Interpretation: Performing Lab:[facility], [address] [place] [phone] Notes/Report: Sodium 141 135-145 mmol/L Potassium 4.3 3.3-5.1 mmol/L Chloride 105 96-108 mmol/L Carbon Dioxide 27 22-29 mmol/L Anion Gap 13 12-20 Blood Urea Nitrogen 16 9-16 mg/dL Creatinine 0.78 0.5-1.4 mg/dL Estimated Glomerular Filt Rate > 60 NOTE: For -Albanian individuals, multiply the result by 1.210. Chronic Kidney Disease: Estimated GFR < 60 mL/min/1.73m2 Severe Kidney Disease: Estimated GFR < 15 mL/min/1.73m2 Glucose Fasting 95 60-99 mg/dL Calcium 9.8 8.4-10.2 mg/dL Bilirubin Total 0.4 0.0-1.0 mg/dL Aspartate Amino Transferase 20 5-37 U/L Alanine Aminotransferase 15 0-40 U/L Total Protein 7.5 6.5-8.0 g/dL Albumin Level 4.1 3.5-5.0 g/dL Alkaline Phosphatase 137 39-117 U/L Ferritin Reviewed date:08/09/2023 01:08:24 PM Interpretation: Performing Lab:[facility], [address] [place] [phone] Notes/Report: Ferritin 86 20-250 ng/mL Lipid Panel Reviewed date:08/09/2023 01:08:24 PM Interpretation: Performing Lab:[facility], [address] [place] [phone] Notes/Report: Triglycerides 160 <150 mg/dL Desirable Triglyceride: less than 150 mg/dL Borderline High Triglyceride 150-199 mg/dL High Triglyceride: 200-499 mg/dL Very High Triglyceride: greater than or equal to 5OO mg/dL Cholesterol 203 <200 mg/dL Desirable Cholesterol: less than 200 mg/dL Borderline High Cholesterol: 200-239 mg/dL High Cholesterol: greater than 239 mg/dL LDL Cholesterol Calculated 130 <100 mg/dL Desirable LDL: less than 100 mg/dL Near Optimal/Above Optimal LDL: 110-129 mg/dL Borderline High LDL: 130-159 mg/dL High LDL: 160-189 mg/dL Very High LDL: greater than or equal to 190 mg/dL HDL Cholesterol 41 >40 mg/dL Desirable HDL: greater than 40 mg/dL Note: This HDL assay may give artificially low results in patients with liver disease. Alkaline Phosphatase Isoenzy nv Reviewed date:09/14/2023 04:19:47 AM Interpretation: Performing Lab:[facility], [address] [place] [phone] Notes/Report: Alk.Phos Isoenzymes Total 130 35-144 U/L Alk.Phos Isoenzymes Intest 9 1-24 % Alk.Phos Isoenzymes Bone 34 28-66 % Alk.Phos Isoenzymes Liver 57 25-69 % Alk.Phos Isoenzymes Placental 0 <=0 % Alk.Phos Iso. Macrohepatic 0 <=0 % THIS TEST WAS PERFORMED AT: [employer] [id number] [place] [phone] MARYSOL SOLANO MD,PHD Alk.Phos Isoenzymes Interp TNP Complete Blood Count Auto Di ff Reviewed date:11/27/2023 03:44:00 PM Interpretation: Performing Lab:[facility], [address] [place] [phone] Notes/Report: White Blood Count 8.0 4.8-10.8 X10*3/uL Red Blood Count 5.10 4.60-5.80 X10*6/uL Hemoglobin 15.6 14.0-18.0 g/dl Hematocrit 46.6 42.0-52.0 % Mean Corpuscular Volume 91.4 80.0-98.0 fL Mean Corpuscular Hemoglobin 30.6 27.0-33.0 pg Mean Corpuscular HGB Conc 33.5 31.0-36.0 g/dl Red Cell Distribution Width 14.3 11.0-16.0 % Platelet Count 239 160-400 X10*3/uL Mean Platelet Volume 8.5 9.4-12.4 fL Neutrophils Percent Auto 67.6 45-73 % Imm Gran Pct Auto 0.2 0.0-0.4 % Lymphocytes Percent Auto 20.7 20-40 % Monocytes Percent Auto 9.2 2-11 % Eosinophils Percent Auto 1.9 0-4 % Basophils Percent Auto 0.4 0-2 % NRBC Pct Auto 0.0 0.0-0.2 /100WBC Neutrophils Absolute Auto 5.4 2.0-8.3 x10*3/uL Imm Gran Abs Auto 0.02 0.00-0.03 X10*3/uL Lymphocytes Absolute Auto 1.7 1.2-4.9 X10*3/uL Monocytes Absolute Auto 0.7 0.1-1.2 X10*3/uL Eosinophils Absolute Auto 0.2 0.0-0.4 X10*3/uL Basophils Absolute Auto 0.0 0.0-0.2 X10*3/uL NRBC Abs Auto 0.000 0.0-0.012 X10*3/uL Comprehensive [place]. Panel Fa st Reviewed date:11/27/2023 03:44:00 PM Interpretation: Performing Lab:[facility], [address] [place] [phone] Notes/Report: Sodium 144 135-145 mmol/L Potassium 4.3 3.3-5.1 mmol/L Chloride 107 96-108 mmol/L Carbon Dioxide 29 22-29 mmol/L Anion Gap 12 12-20 Blood Urea Nitrogen 16 9-16 mg/dL Creatinine 0.81 0.5-1.4 mg/dL Estimated Glomerular Filt Rate > 60 NOTE: For -Albanian individuals, multiply the result by 1.210. Chronic Kidney Disease: Estimated GFR < 60 mL/min/1.73m2 Severe Kidney Disease: Estimated GFR < 15 mL/min/1.73m2 Glucose Fasting 100 60-99 mg/dL A fasting glucose from 100-125 mg/dl is considered impaired (pre-diabetes). Calcium 10.0 8.4-10.2 mg/dL Bilirubin Total 0.5 0.0-1.0 mg/dL Aspartate Amino Transferase 22 5-37 U/L Alanine Aminotransferase 16 0-40 U/L Total Protein 7.3 6.5-8.0 g/dL Albumin Level 4.1 3.5-5.0 g/dL Alkaline Phosphatase 125 39-117 U/L Lipid Panel Reviewed date:11/27/2023 03:44:00 PM Interpretation: Performing Lab:[facility], [address] [place] [phone] Notes/Report: Triglycerides 159 <150 mg/dL Desirable Triglyceride: less than 150 mg/dL Borderline High Triglyceride 150-199 mg/dL High Triglyceride: 200-499 mg/dL Very High Triglyceride: greater than or equal to 5OO mg/dL Cholesterol 216 <200 mg/dL Desirable Cholesterol: less than 200 mg/dL Borderline High Cholesterol: 200-239 mg/dL High Cholesterol: greater than 239 mg/dL LDL Cholesterol Calculated 142 <100 mg/dL Desirable LDL: less than 100 mg/dL Near Optimal/Above Optimal LDL: 110-129 mg/dL Borderline High LDL: 130-159 mg/dL High LDL: 160-189 mg/dL Very High LDL: greater than or equal to 190 mg/dL HDL Cholesterol 43 >40 mg/dL Desirable HDL: greater than 40 mg/dL Note: This HDL assay may give artificially low results in patients with liver disease. Prostate Specific Antigen Reviewed date:11/27/2023 03:44:00 PM Interpretation: Performing Lab:[facility], [address] [place] [phone] Notes/Report: Prostate Specific Antigen 1.46 <0.05-4.0 ng/mL PSA methodology: Davila Alinity i Chemiluminescent Microparticle Immunoassay (CMIA) URINE DIP STICK Reviewed date:12/03/2023 11:02:19 AM Interpretation: Performing Lab: Notes/Report: SG 1.005 1.005 - 1.025 pH 7.5 5.0 - 9.0 BETH 70 Negative - NIT Negative Negative - PRO 15 Negative - Trace GLU Negative Negative - KET Negative Negative - UBG 0.2 0.1 - 1.8 VIET Negative 0.2 - 1.3 BLD 5-10 Negative - Complete Blood Count Auto Di ff Reviewed date:03/14/2024 05:01:23 AM Interpretation: Performing Lab:[facility], [address] [place] [phone] Notes/Report: White Blood Count 12.4 4.8-10.8 X10*3/uL Red Blood Count 5.13 4.60-5.80 X10*6/uL Hemoglobin 15.6 14.0-18.0 g/dl Hematocrit 46.0 42.0-52.0 % Mean Corpuscular Volume 89.7 80.0-98.0 fL Mean Corpuscular Hemoglobin 30.4 27.0-33.0 pg Mean Corpuscular HGB Conc 33.9 31.0-36.0 g/dl Red Cell Distribution Width 14.6 11.0-16.0 % Platelet Count 200 160-400 X10*3/uL Mean Platelet Volume 8.9 9.4-12.4 fL Neutrophils Percent Auto 76.2 45-73 % Imm Gran Pct Auto 0.6 0.0-0.4 % Lymphocytes Percent Auto 9.6 20-40 % Monocytes Percent Auto 9.9 2-11 % Eosinophils Percent Auto 3.5 0-4 % Basophils Percent Auto 0.2 0-2 % NRBC Pct Auto 0.0 0.0-0.2 /100WBC Neutrophils Absolute Auto 9.4 2.0-8.3 x10*3/uL Imm Gran Abs Auto 0.08 0.00-0.03 X10*3/uL Lymphocytes Absolute Auto 1.2 1.2-4.9 X10*3/uL Monocytes Absolute Auto 1.2 0.1-1.2 X10*3/uL Eosinophils Absolute Auto 0.4 0.0-0.4 X10*3/uL Basophils Absolute Auto 0.0 0.0-0.2 X10*3/uL NRBC Abs Auto 0.000 0.0-0.012 X10*3/uL Hold Lav - Possible Hematolo gy Reviewed date:03/14/2024 05:01:23 AM Interpretation: Performing Lab:[facility], [address] [place] [phone] Notes/Report: Hold Lav - Possible Hematology SEE NOTE Specimen will be held untested for 8 hours. Call Hematology if testing is desired. Prothrombin Time INR Reviewed date:03/14/2024 05:01:23 AM Interpretation: Performing Lab:[facility], [address] [place] [phone] Notes/Report: Prothrombin Time 12.5 10.9-12.4 SEC INTERNATIONAL NORM RATIO 1.1 0.9-1.1 INTERNATIONAL NORMALIZED RATIO (INR) REFERENCE RANGES Reference Range For patients not on anticoagulant therapy: 0.9 - 1.1 INR ranges for oral anticoagulant therapy: For prevention and treatment of venous thrombosis and pulmonary embolism: 2.0 - 3.0 For acute myocardial infarction with aspirin therapy: 2.0 - 3.0 For acute myocardial infarction without aspirin therapy: 3.0 - 4.0 For patients with mechanical prosthetic heart valves: 2.5 - 3.5 Partial Thromboplastin Time Reviewed date:03/14/2024 05:01:23 AM Interpretation: Performing Lab:[facility], [address] [place] [phone] Notes/Report: Partial Thromboplastin Time 30.1 26.0-36.8 SEC For information regarding the monitoring of direct thrombin inhibitors, please refer to Pharmacy. Comprehensive Met. Panel Reviewed date:03/14/2024 05:01:23 AM Interpretation: Performing Lab:[facility], [address] [place] [phone] Notes/Report: Sodium 140 135-145 mmol/L Potassium 3.9 3.3-5.1 mmol/L Chloride 106 96-108 mmol/L Carbon Dioxide 22 22-29 mmol/L Anion Gap 16 12-20 Blood Urea Nitrogen 30 9-16 mg/dL Creatinine 0.74 0.5-1.4 mg/dL Creatinine Clr Calc Pharmacy 99.3 eGFR (calculated from the MDRD study equation) and eCrCl (calculated from the Cockcroft-Gault equation) are based on different parameters and may not yield comparable results. If eCrCl result is absurd, please check patient's height/weight. Estimated Glomerular Filt Rate > 60 Chronic Kidney Disease: Estimated GFR < 60 mL/min/1.73m2 Severe Kidney Disease: Estimated GFR < 15 mL/min/1.73m2 Glucose Random 101 60-115 mg/dL Calcium 9.9 8.4-10.2 mg/dL Bilirubin Total 0.6 0.0-1.0 mg/dL Aspartate Amino Transferase 26 5-37 U/L Alanine Aminotransferase 12 0-40 U/L Total Protein 7.5 6.5-8.0 g/dL Albumin Level 3.9 3.5-5.0 g/dL Alkaline Phosphatase 155 39-117 U/L Lactic Acid Reviewed date:03/14/2024 05:01:23 AM Interpretation: Performing Lab:[facility], [address] [place] [phone] Notes/Report: Lactic Acid 4.2 0.5-2.0 mmol/L Critical value for test LATIC: Results called to and read back by: DAVIE Person calling: ORXANNE Date:03/07/2024 Time: 2010 Troponin-I High Sensitivity Reviewed date:03/14/2024 05:01:23 AM Interpretation: Performing Lab:[facility], [address] [place] [phone] Notes/Report: Troponin-I High Sensitivity < 2.7 <3.5-35.0 ng/L The Davila high sensitivity Troponin-I results should be used in conjunction with other diagnostic information such as ECG, clinical observations and information, and patient symptoms to aid in the diagnosis of DE. B Type Natriuretic Peptide Reviewed date:03/14/2024 05:01:23 AM Interpretation: Performing Lab:[address] [phone] Notes/Report: B Type Natriuretic Peptide 10 <100 pg/mL For those patients who are being treated with Natrecor (nesiritide, recombinant BNP), BNP testing should be performed at least two hours post treatment in order to ensure that only endogenous levels of BNP are detected. Demetris Tee Reviewed date:03/14/2024 05:01:23 AM Interpretation: Performing Lab:[facility], [address] [place] [phone] Notes/Report: Demetris Tee See Note Specimen held untested for 24 hours; Call to request Chemistry testing. Ethanol Reviewed date:03/14/2024 05:01:23 AM Interpretation: Performing Lab:[address] [phone] Notes/Report: Ethanol < 10 Serum/plasma ethanol results are to be used for medical/treatment purposes only. SARS-CoV2/FLU/RSV Reviewed date:03/14/2024 05:01:24 AM Interpretation: Performing Lab:[facility], [address] [place] [phone] Notes/Report: Influenza A PCR NEGATIVE Negative Influenza B PCR NEGATIVE Negative Resp Syncy Virus RNA Qual PCR NEGATIVE Negative SARS COV2 PCR INHOUSE NEGATIVE Negative All test results must be correlated with clinical findings. Negative results do not preclude SARS-CoV2, influenza A virus, influenza B virus and/or RSV infection and should not be used as the sole basis for treatment or other patient management decisions. Negative results must be combined with clinical observations, patient history, and epidemiological information. This test has not been evaluated for monitoring treatment of infection. This test has been authorized by the FDA under an Emergency Use Authorization (EUA) for use by authorized laboratories. Testing performed on the [employer] GeneXpert utilizing real-time RT-PCR. All SARS CoV2 and positive influenza A/B results are reported to [facility]. Blood Culture (First) Reviewed date:03/14/2024 05:01:23 AM Interpretation: Performing Lab:[address] [phone] Notes/Report: Blood Culture (First) No growth after 5 days. Blood Culture (Second) Reviewed date:03/14/2024 05:01:23 AM Interpretation: Performing Lab:[address] [phone] Notes/Report: Blood Culture (Second) No growth after 5 days. Lactic Acid-LAB USE ONLY Reviewed date:03/14/2024 05:01:24 AM Interpretation: Performing Lab:[address] [phone] Notes/Report: Lactic Acid-LAB USE ONLY 2.2 0.5-2.0 mmol/L Critical value for test(s): LACTA Results called to and read back by: NAVEED Person calling: CORETTA Date: 03/07/24 Time: 2249 D Dimer High Sensitivity Reviewed date:03/14/2024 05:01:24 AM Interpretation: Performing Lab:[facility], [address] [place] [phone] Notes/Report: D Dimer High Sensitivity 823 D-DIMER HS REFERENCE RANGE Note: Our assay reports D-Dimer Units (D-DU). The cut-off value for venous thromboembolic (VTE) disease is 230 ng/mL. This value has a very high negative predictive value when the patient has a low to moderate clinical probability of VTE. The upper limit of normal is 243 ng/mL. Hold Green Gel Reviewed date:03/14/2024 05:01:24 AM Interpretation: Performing Lab:[facility], [address] [place] [phone] Notes/Report: Hold Green Gel See Note Specimen held untested for 24 hours; Call to request Chemistry testing. CT angio chest PE protocol Reviewed date:03/14/2024 05:01:24 AM Interpretation: Performing Lab: Notes/Report: [address] [place] [address] CT Scan Report Signed Patient: Jaren Up MR#: [id number] 287 : 1945 Acct:[id number] Age/Sex: 79 / M ADM Date: 03/07/24 Loc: [place] [address]: Subhash Welch MD Ordering Physician: Jeffrey Ellsworth MD Date of Service: 03/07/24 Procedure(s): CT angio chest PE protocol Accession Number(s): [id number] cc: Koby Peña MD; Jeffrey Ellsworth MD EXAMINATION: CTA CHEST CLINICAL INFORMATION: Lung mass versus pulmonary emboli COMPARISON: Chest radiograph earlier today TECHNIQUE: Multidetector volumetric CT imaging of the chest was obtained both before as well as after the administration of 65 mL of Omnipaque 350 intravenous contrast without immediate adverse reactions. Axial MIP volume rendering provided. Sagittal and coronal reformatted images were obtained. Additional 2-D coronal and sagittal reformatted images and axial 3-D maximum intensity projection MIP images are generated on the CT workstation. This CT examination was performed using dose optimization techniques as appropriate, variously including the following: *Automated exposure control *Adjustment of mA and/or kV according to patient size (this includes techniques or standardized protocols for targeted exams where dose is matched to indication/reason for exam; i.e. extremities or head) *Use of iterative reconstruction technique DLP: 449 mGy-cm VASCULAR FINDINGS: No pulmonary emboli are seen. NONVASCULAR FINDINGS: LUNGS: Severe emphysematous changes are present throughout the lungs. A saber-sheath trachea is present. Subpleural reticulation is present.. Multiple masslike areas are seen in the left lower lobe (7:268 and 306) with the largest measuring about 2.2 cm. MEDIASTINUM: Some small mediastinal lymph nodes are seen measuring 1.0 cm in short axis dimension. CORONARY ARTERY CALCIFICATION: Absent PLEURA: There is no pleural effusion. No pleural mass or thickening. AXILLA/CHEST WALL: There is a 2.1 x 2.8 x 3.3 cm water density subcutaneous mass, likely a sebaceous cyst . No axillary lymphadenopathy. There is a right chest wall mass measuring 3.8 x 5.5 x 3.8 cm with associated destruction of the right third anterolateral rib. There is a subpectoral right-sided lymph node present adjacent to the chest wall mass measuring 1.9 x 1.5 x 2.3 cm (5:20 and 8:31). UPPER ABDOMEN: A small hiatal hernia is present. The adrenal glands are unremarkable. OSSEOUS STRUCTURES: Destructive lesion of the right third rib as described above. There is a compression fracture involving the L1 vertebral body. No other bony destructive lesions are seen. CT/CT angio chest PE protocol IMPRESSION: 1. No evidence of pulmonary emboli. 2. Severe emphysema with multiple masslike areas in the left lower lobe. 3. Right chest wall mass with associated destruction of the right third rib. 4. Right subpectoral lymphadenopathy. 5. L1 compression fracture. 6. Above-mentioned findings are concerning for malignancy. Biopsy of the destructive chest wall mass could easily be performed under CT guidance. 7. Other incidental findings as described above. Fleischner guidelines were followed. Electronically signed by: Clarence Block MD 03/07/2024 11:20 PM [facility] Dictated By: Clarence Block MD Signed By: <Electronically signed by Clarence Block MD in OV> 12/02/24 2320 DD/ 48 TD/TT: 03/07/24 1920 Hog Handler: [address] [address] [address] Scan Report Signed Patient: Kane Up MR#: [id number] 287 : 1945 Acct:[id number] Age/Sex: 79 / M ADM Date: 03/07/24 Loc: [place] [address]: Niki Welch MD Ordering Physician: Jeffrey Ellsworth MD Date of Service: 03/07/24 Procedure(s): CT ang io chest PE protocol Accession Number(s): [id number] cc: Koby Peña MD; Jeffrey Ellsworth MD EXAMINATION: CTA CHEST CLINICAL INFORMATION: Lung mass versus pulmonary emboli COMPARISON: Chest radiograph ear lier today TECHNIQUE: Multidetector volume tric CT imaging of the chest was obtained both before as well as af ter the administration of 65 mL of Omnipaque 350 intravenous contrast without immediate adverse reactions. Axial MIP volume rendering provided. Sagittal and coronal reformatted images were obtained. Additional 2-D coronal and sagittal reformatted images and axial 3-D maximum intensity projection MIP images are generated on the CT workstation. This CT examination was performed using dose optimization techniques as appropriate, various ly including the following: *Automated exposure control *Adjustment of mA an d/or kV according to patient size (this includes techniques or standardized protocols for targeted exams where dose is matched to indication/reason for exam; i.e. extremities or head) *Use of iterative reconstruction technique DLP: 449 mGy-cm VASCULAR FINDINGS: No pulmonary emboli are seen. NONVASCULAR FINDINGS: LUNGS: Severe emphysematous changes are present throughout the lungs. A saber-sheath trachea is present. Subpleural reticulation is present.. Multiple masslike ar eas are seen in the left lower lobe (7:268 and 306) with the largest measuring about 2.2 cm. MEDIASTINUM: Some sm all mediastinal lymph nodes are seen measuring 1.0 cm in short axis dimension. CORONARY ARTERY CALCIFICATION: Absent PLEURA: There is no pleural effusion. No pleural mass or thickening. AXILLA/CHEST WALL: T here is a 2.1 x 2.8 x 3.3 cm water density subcutaneous mass, likely a sebaceous cyst . No axillary lymphadenopathy. The re is a right chest wall mass measuring 3.8 x 5.5 x 3.8 cm with associat ed destruction of the right third anterolateral rib. There is a subpector al right-sided lymph node present adjacent to the chest wall mass measuring 1.9 x 1.5 x 2.3 cm (5:20 and 8:31). UPPER ABDOMEN: A sma ll hiatal hernia is present. The adrenal glands are unremarkable. OSSEOUS STRUCTURES: Destructive lesion of the right third rib as described above. The re is a compression fracture involving the L1 vertebral body. No o ther bony destructive lesions are seen. C T/CT angio chest PE protocol IMPRESSION: 1. No evidence of pulmonary emboli. 2. Severe emphysema with multiple masslike areas in the left lower lobe. 3. Right chest wall mass with associated destruction of the right third rib. 4. Right subpectoral lymphadenopathy. 5. L1 compression fracture. 6. Above-mentioned findings are concerning for malignancy. Biopsy of the destructive ches t wall mass could easily be performed under CT guidance. 7. Other incidental findings as described above. Fleischner guideline s were followed. Electronically norah d by: Clarence Block MD 03/07/2024 11:20 PM [facility] Dictated By: Clarence Block MD Signed By: <Electronically signed by Clarence Block MD in OV> 03/07/240 DD/ 1849 TD/TT: 03/07/24 1920 Hog Handler: XR chest 2V Reviewed date:03/14/2024 05:01:24 AM Interpretation: Performing Lab: Notes/Report: [address] [address] XRay Report Signed Patient: Jaren Up MR#: [id number] 287 : 1945 Acct:[id number] Age/Sex: 79 / M ADM Date: 03/07/24 Loc: HO.ED Attending Dr: Ordering Physician: Generic ED Physician Date of Service: 03/07/24 Procedure(s): XR chest 2V Accession Number(s): [id number] cc: Koby Peña MD; Generic ED Physician EXAMINATION: XR CHEST CLINICAL INFORMATION: sob COMPARISON: Chest x-ray on 06/01/2019 TECHNIQUE: 2 views of the chest were obtained. FINDINGS: The cardiac silhouette is normal. There is mild diffuse bronchial wall thickening. There is a region of subpleural consolidation/density along the right upper lobe. Interstitial and alveolar opacity in the left lower lobe. There are no pleural effusions or pneumothoraces. XR/XR chest 2V IMPRESSION: Left lower lobe pneumonia. Right upper lobe density may represent consolidation versus mass. Recommend short interval follow-up. Electronically signed by: Melvi Wong MD 03/07/2024 04:48 PM EST Dictated By: Melvi Wong MD Signed By: <Electronically signed by Melvi Wong MD in OV> 03/07/24 1648 DD/ 1545 TD/TT: 03/07/24 1550 Hog Handler: [place] [address] XRay Report Signed Patient: Kane Up MR#: [id number] 287 : 1945 Acct:[id number] Age/Sex: 79 / M ADM Date: 03/07/24 Loc: .ED Attending Dr: Ordering Physician: Generic ED Physician Date of Service: 03/07/24 Procedure(s): XR joan st 2V Accession Number(s): [id number] cc: Koby Peña MD; Generic ED Physician EXAMINATION: XR CHEST CLINICAL INFORMATION: sob COMPARISON: Chest x-ray on 06/01/2019 TECHNIQUE: 2 views of the chest were obtained. FINDINGS: The cardiac silhouet te is normal. There is mild diffuse bronchial wall thickening. There is a region of subpleural consolidation/density along the right upper lobe . Interstitial and alveolar opacity in the left lower lobe. There ar e no pleural effusions or pneumothoraces. X R/XR chest 2V IMPRESSION: Left lower lobe pneumonia. Right upper lobe den sity may represent consolidation versus mass. Recommend short inte rval follow-up. Electronically norah d by: Melvi Wong MD 03/07/2024 04:48 PM EST RP Dictated By: Melvi Wong MD Signed By: <Electronically signed by Melvi Wong MD in OV> 03/07/24 1648 DD/ 1545 TD/TT: 03/07/24 1550 Hog Handler: COREY XR shoulder RT min 2V Reviewed date:03/14/2024 05:01:24 AM Interpretation: Performing Lab: Notes/Report: [address] [address] XRay Report Signed Patient: Jaren Up MR#: [id number] 287 : 1945 Acct:[id number] Age/Sex: 79 / M ADM Date: 03/07/24 Loc: HO.ED Attending Dr: Ordering Physician: Generic ED Physician Date of Service: 03/07/24 Procedure(s): XR shoulder RT min 2V Accession Number(s): [id number] cc: Koby Peña MD; Generic ED Physician EXAMINATION: XR SHOULDER, RIGHT CLINICAL INFORMATION: fall COMPARISON: None available. TECHNIQUE: Three views of the right shoulder. FINDINGS: No fracture Acromioclavicular joint: there is mild to moderate osteoarthritis of the acromioclavicular joint. Glenohumeral joint: Small marginal osteophytes without joint space narrowing indicative of mild osteoarthritis. Surrounding bone and soft tissues unremarkable. XR/XR shoulder RT min 2V IMPRESSION: Osteoarthritis Electronically signed by: Pierce Trevino MD 03/07/2024 05:37 PM EST RP Dictated By: Pierce Trevino MD Signed By: <Electronically signed by Pierce Trevino MD in OV> 03/07/24 1737 DD/ 1640 TD/TT: 03/07/24 1648 Hog Handler: DANYA [address] [address] XRay Report Signed Patient: Kane Up MR#: [id number] 287 : 1945 Acct:[id number] Age/Sex: 79 / M ADM Date: 03/07/24 Loc: HO.ED Attending Dr: Ordering Physician: Generic ED Physician Date of Service: 03/07/24 Procedure(s): XR shoulder RT min 2V Accession Number(s): [id number] cc: Koby Peña MD; Generic ED Physician EXAMINATION: XR SHOULDER, RIGHT CLINICAL INFORMATION: fall COMPARISON: None available. TECHNIQUE: Three views of the r ight shoulder. FINDINGS: No fracture Acromioclavicular nae int: there is mild to moderate osteoarthritis of the acromioclavicula r joint. Glenohumeral joint: Small marginal osteophytes without joint space narrowing indicative of mild osteoarthritis. Surrounding bone and soft tissues unremarkable. X R/XR shoulder RT min 2V IMPRESSION: Osteoarthritis Electronically norah d by: Pierce Trevino MD 03/07/2024 05:37 PM EST Dictated By: Pierce Trevino MD Signed By: <Electronically signed by Pierce Trevino MD in OV> 03/07/24 1737 DD/ 1640 TD/TT: 03/07/24 1648 Hog Handler: DANYA Complete Blood Count Auto Di ff Reviewed date:03/14/2024 05:01:23 AM Interpretation: Performing Lab:[facility], [address] [place] [id number] Notes/Report: White Blood Count 9.4 4.8-10.8 X10*3/uL Red Blood Count 4.34 4.60-5.80 X10*6/uL Hemoglobin 13.1 14.0-18.0 g/dl Hematocrit 39.5 42.0-52.0 % Mean Corpuscular Volume 91.0 80.0-98.0 fL Mean Corpuscular Hemoglobin 30.2 27.0-33.0 pg Mean Corpuscular HGB Conc 33.2 31.0-36.0 g/dl Red Cell Distribution Width 14.6 11.0-16.0 % Platelet Count 183 160-400 X10*3/uL Mean Platelet Volume 9.1 9.4-12.4 fL Neutrophils Percent Auto 73.9 45-73 % Imm Gran Pct Auto 0.3 0.0-0.4 % Lymphocytes Percent Auto 10.0 20-40 % Monocytes Percent Auto 10.9 2-11 % Eosinophils Percent Auto 4.5 0-4 % Basophils Percent Auto 0.4 0-2 % NRBC Pct Auto 0.0 0.0-0.2 /100WBC Neutrophils Absolute Auto 7.0 2.0-8.3 x10*3/uL Imm Gran Abs Auto 0.03 0.00-0.03 X10*3/uL Lymphocytes Absolute Auto 0.9 1.2-4.9 X10*3/uL Monocytes Absolute Auto 1.0 0.1-1.2 X10*3/uL Eosinophils Absolute Auto 0.4 0.0-0.4 X10*3/uL Basophils Absolute Auto 0.0 0.0-0.2 X10*3/uL NRBC Abs Auto 0.000 0.0-0.012 X10*3/uL Basic Metabolic Panel Reviewed date:03/14/2024 05:01:23 AM Interpretation: Performing Lab:[address] [address] Notes/Report: Sodium 142 135-145 mmol/L Potassium 3.8 3.3-5.1 mmol/L Chloride 111 96-108 mmol/L Carbon Dioxide 23 22-29 mmol/L Anion Gap 12 12-20 Blood Urea Nitrogen 22 9-16 mg/dL Creatinine 0.68 0.5-1.4 mg/dL Creatinine Clr Calc Pharmacy 108.1 eGFR (calculated from the MDRD study equation) and eCrCl (calculated from the Cockcroft-Gault equation) are based on different parameters and may not yield comparable results. If eCrCl result is absurd, please check patient's height/weight. Estimated Glomerular Filt Rate > 60 Chronic Kidney Disease: Estimated GFR < 60 mL/min/1.73m2 Severe Kidney Disease: Estimated GFR < 15 mL/min/1.73m2 Glucose Random 102 60-115 mg/dL Calcium 8.6 8.4-10.2 mg/dL Lactic Acid-LAB USE ONLY Reviewed date:03/14/2024 05:01:23 AM Interpretation: Performing Lab:[address] [address] Notes/Report: Lactic Acid-LAB USE ONLY 1.2 0.5-2.0 mmol/L PSA,Total (Free>4and<10) Reviewed date:03/14/2024 05:01:23 AM Interpretation: Performing Lab:[facility], [address] [place] [phone] Notes/Report: PSA,Total (Free>4and<10) 2.51 0.00-4.00 ng/mL A Free PSA was not performed: The percentage of Free PSA can be used to enhance the differentiation of prostate cancer from benign prostatic disease in subjects whose PSA levels are between 4.0 and 10.0 ng/mL. For subjects whose PSA levels are below 4.0 or above 10.0 ng/mL, the risk of prostate cancer is determined on the basis of the PSA alone. Therefore the % Free PSA is recommended only for those subjects whose PSA levels are between 4.0 and 10.0 ng/mL. PSA methodology: CourseWeavernity i Chemiluminescent Microparticle Immunoassay (CMIA) Reason For Referral No Information Medications Medication SIG (Take, Route, Frequency, Duration) Notes Start Date End Date Status Breo Ellipta 200-25 MCG/INH Inhalation Active Incruse Ellipta 62.5 MCG/INH INHALE 1 PUFF BY MOUTH DAILY Inhalation Active Pravastatin Sodium 80 MG take 1 tablet b y mouth every day Active Albuterol Sulfate HFA 108 (90 Base) MCG/ACT Inhalation Active Immunizations Vaccine Route Administration Date Status Comme nts Influenza no Preserv 3 and > IM Intramuscular 02/05/2021 Administered PPV 23 Unknown 02/05/2015 Administered COVID PFIZER Unknown 03/18/2021 Administered Influenza, quad Unknown 01/10/2017 Administered FLuzone HD PF Unknown 02/06/2022 Administered FLuzone HD PF Unknown 01/18/2020 Administered FLuzone HD PF Unknown 03/09/2023 Administered Fluzone High-Dose (HD-IIV3) Unknown 01/21/2024 Administered Fluzone High-Dose (HD-IIV3) Unknown 01/28/2018 Administered Social History Tobacco Use: Social History Observation [...] ast year? No Points 0 Interpretation Negative Problems Problem Type SNOMED Code ICD Code Onset Dates Problem Status W/U Status Risk Notes Problem 3668697 Former smoker (Z87.891) Active confirmed He seems motivated not to smoke. We formulated a plan to prevent relapse in time to stress and illness. Problem 033132232 Overweight (E66.3) Active confirmed He has gained 2 pounds. His body mass index is 29. We made a plan to lose weight at a rate of one half of a pound per week Problem 59695293 Allergy to sulfa drugs (Z88.2) Active confirmed Problem 516496631 Mixed hyperlipidemia (E78.2) Active confirmed His total cholesterol is 159 with an LDL of 142. He was continued on the same dose of medication. I recommended aggressive weight loss. His body mass index is 29. Problem 349143025 Low back pain (M54.5) Active confirmed He has had surgery on his lumbar spine for degenerative disc disease and impingement of the left L5 nerve root at the foramen. Problem COPD - Chronic obstructive pulmonary disease (21265343) COPD (chronic obstructive pulmonary disease) (J44.9) Active confirmed He is not smoking and he is comfortable at rest. His dyspnea is only with exertion. It remained stable and no change in his regimen is needed today. He has been to the pulmonary physician recently and does not qualify for home oxygen. 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 It is not clear if he was ever treated. He has never had clinical TB. Some years ago he developed an interstitial infiltrate in his lung and was hospitalized. 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 He has recovered from that. Problem 472464066 History of iron deficiency anemia (Z86.2) Active confirmed His iron deficiency anemia has resolved. He has not noticed any bleeding. He is compliant with his treatment. His ferritin is 86. Problem 623330659 Primary osteoarthritis of both knees (M17.0) Active confirmed He has had knee surgery. He will continue on current therapy and be monitored carefully. Problem 73696695 Pulmonary emphysema, unspecified emphysema type (J43.9) Active confirmed His lung disease is stable. He is no longer smoking. He is short of breath with exertion but not during the course of daily life. Problem 2170848522442 Benign prostatic hyperplasia with lower urinary tract symptoms (N40.1) Active confirmed He rises from sleep once and sometimes twice a night. He had no nodules in his prostate. We discussed modifications to his lifestyle he could make to reduce nocturia. Problem 54925675 ASHD (arterioscleroti c heart disease) (I25.10) Active confirmed He denies any recent angina palpitations or syncope. Current therapy was continued. 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 Vital Signs Heart Rate 90 /min 12/03/2023 Temperature 97.7 degrees Fahrenheit 12/03/2023 Oximetry 95 % 05/13/2023 Blood pressure diastolic 76 mm Hg 12/03/2023 Height 72 in 12/03/2023 Blood pressure systolic 113 mm Hg 12/03/2023 Weight 216 lbs 12/03/2023 BMI 29.29 kg/m2 12/03/2023 Encounters Encounter Location Date Provider Diagnosis Koby Peña III, MD [address] [place] [address] [place] [address] 03/31/2023 Koby Peña Mixed hyperlipidemia E78.2 ; COPD (chronic obstructive pulmonary disease) J44.9 ; Pulmonary emphysema, unspecified emphysema type J43.9 ; ASHD (arteriosclerotic heart disease) I25.10 ; Primary osteoarthritis of both knees M17.0 ; Benign prostatic hyperplasia with lower urinary tract symptoms N40.1 ; Overweight E66.3 and Elevated alkaline phosphatase level R74.8 Koby Peña III, MD [address] [place] [address] [place] [address] 05/13/2023 Koby Peña Mixed hyperlipidemia E78.2 ; Overweight E66.3 ; Alkaline phosphatase raised R74.8 ; COPD (chronic obstructive pulmonary disease) J44.9 ; Pulmonary emphysema, unspecified emphysema type J43.9 ; ASHD (arteriosclerotic heart disease) I25.10 and Primary osteoarthritis of both knees M17.0 Koby Peña III, MD [address] [place] [address] [place] [address] 08/11/2023 Koby Peña Mixed hyperlipidemia E78.2 ; Benign prostatic hyperplasia with lower urinary tract symptoms N40.1 ; Overweight E66.3 ; COPD (chronic obstructive pulmonary disease) J44.9 ; Pulmonary emphysema, unspecified emphysema type J43.9 ; ASHD (arteriosclerotic heart disease) I25.10 ; History of iron deficiency anemia Z86.2 and Primary osteoarthritis of both knees M17.0 Koby Peña III, MD [address] [place] [address] [place] [address] 12/03/2023 Koby Peña Mixed hyperlipidemia E78.2 ; Benign prostatic hyperplasia with lower urinary tract symptoms N40.1 ; COPD (chronic obstructive pulmonary disease) J44.9 ; Pulmonary emphysema, unspecified emphysema type J43.9 ; ASHD (arteriosclerotic heart disease) I25.10 ; Primary osteoarthritis of both knees M17.0 ; Overweight E66.3 and Former smoker Z87.891 Koby Peña III, MD [address] [place] [address] [place] [address] 03/14/2024 Koby Peña III, MD [address] [place] [address] [place] [address] 03/15/2024 Koby Peña Assessments Encounter Date Diagnosis (ICD Code) Assessment Notes Treat ment Notes Treatment Clinical Notes 03/31/2023 Mixed hyperlipidemia (ICD-10 - E78.2) His total cholesterol was 1. A 99 and his triglycerides 133=6. No change in his medication was made today. I recommended aggressive weight loss and a diet restricted in fat calories and sodium. 03/31/2023 COPD (chronic obstructive pulmonary disease) (ICD-10 - J44.9) He is not smoking and he is comfortable at rest. His dyspnea is only with exertion. It remained stable and no change in his regimen is needed today. He has been to the pulmonary physician recently and does not qualify for home oxygen. 05/13/2023 Overweight (ICD-10 - E66.3) His body mass index is 29. He has gained 4 pounds. We discussed his diet and nutrition today. We made a plan to lose weight at a rate of one half of a pound per week. 05/13/2023 Mixed hyperlipidemia (ICD-10 - E78.2) Lipid profile showed him to be in and near his target. No change in his medication was made today. I recommended aggressive weight loss and a diet restricted in fat calories and sodium. 08/11/2023 Mixed hyperlipidemia (ICD-10 - E78.2) His lipids have increased slightly with the weight gain. His total cholesterol is slightly out of his range. I recommended aggressive weight loss and regular exercise. We reviewed his diet. 08/11/2023 Benign prostatic hyperplasia with lower urinary tract symptoms (ICD-10 - N40.1) He rises from sleep once or twice a night to urinate depending upon fluid intake. We have discussed lifestyle modification as a way to reduce nocturia. 12/03/2023 Mixed hyperlipidemia (ICD-10 - E78.2) His [...] lifestyle he could make to reduce nocturia. 03/31/2023 Pulmonary emphysema, unspecified emphysema type (ICD-10 - J43.9) His lung disease is stable. He is no longer smoking. He is short of breath with exertion but not during the course of daily life. 05/13/2023 Alkaline phosphatase raised (ICD-10 - R74.8) His alkaline phosphatase is elevated 162 which is new. Isoenzymes were ordered at his next blood test. He is asymptomatic 08/11/2023 Overweight (ICD-10 - E66.3) He has gained 2 pounds. His body mass index is 29. We made a plan to lose weight at a rate of one half of a pound per week 12/03/2023 COPD (chronic obstructive pulmonary disease) (ICD-10 - J44.9) He is not smoking and he is comfortable at rest. His dyspnea is only with exertion. It remained stable and no change in his regimen is needed today. He has been to the pulmonary physician recently and does not qualify for home oxygen. 03/31/2023 ASHD (arteriosclerotic heart disease) (ICD-10 - I25.10) He denies any recent angina palpitations or syncope. Current therapy was continued. 05/13/2023 COPD (chronic obstructive pulmonary disease) (ICD-10 - J44.9) He is not smoking and he is comfortable at rest. His dyspnea is only with exertion. It remained stable and no change in his regimen is needed today. He has been to the pulmonary physician recently and does not qualify for home oxygen. 08/11/2023 COPD (chronic obstructive pulmonary disease) (ICD-10 - [...] not during the course of daily life. 03/31/2023 Primary osteoarthritis of both knees (ICD-10 - M17.0) He has had knee surgery. He will continue on current therapy and be monitored carefully. 05/13/2023 Pulmonary emphysema, unspecified emphysema type (ICD-10 - J43.9) His lung disease is stable. He is no longer smoking. He is short of breath with exertion but not during the course of daily life. 08/11/2023 Pulmonary emphysema, unspecified emphysema type (ICD-10 - J43.9) His lung disease is stable. He is no longer smoking. He is short of breath with exertion but not during the course of daily life. 12/03/2023 ASHD (arteriosclerotic heart disease) (ICD-10 - I25.10) He denies any recent angina palpitations or syncope. Current therapy was continued. 03/31/2023 Benign prostatic hyperplasia with lower urinary tract symptoms (ICD-10 - N40.1) He arises from sleep usually twice a night to urinate. We discussed lifestyle modification as a way to reduce nocturia. 05/13/2023 ASHD (arteriosclerotic heart disease) (ICD-10 - I25.10) He denies any recent angina palpitations or syncope. Current therapy was continued. 08/11/2023 ASHD (arteriosclerotic heart disease) (ICD-10 - I25.10) He denies any recent angina palpitations or syncope. Current therapy was continued. 12/03/2023 Primary osteoarthritis of both knees (ICD-10 - M17.0) He has had knee surgery. He will continue on current therapy and be monitored carefully. 03/31/2023 Overweight (ICD-10 - E66.3) His body mass index is 29. We discussed the relationship between his weight and heart disease, diabetes fluid retention and shortness of breath. We discussed diet and nutrition. He will pursue aggressive weight loss and sodium restriction. 05/13/2023 Primary osteoarthritis of both knees (ICD-10 - M17.0) He has had knee surgery. He will continue on current therapy and be monitored carefully. 08/11/2023 History of iron deficiency anemia (ICD-10 - Z86.2) His iron deficiency anemia has resolved. He has not noticed any bleeding. He is compliant with his treatment. His ferritin is 86. 12/03/2023 Overweight (ICD-10 - E66.3) He has gained 2 pounds. His body mass index is 29. We made a plan to lose weight at a rate of one half of a pound per week 03/31/2023 Elevated alkaline phosphatase level (ICD-10 - R74.8) His alkaline phosphatase was 162. The 2 previous values were 132, followed by 121. This value will be repeated. His PSA is low. He is asymptomatic. 08/11/2023 Primary osteoarthritis of both knees (ICD-10 - M17.0) He has had knee surgery. He will continue on current therapy and be monitored carefully. 12/03/2023 Former smoker (ICD-1 0 - Z87.891) He seems motivated not to smoke. We formulated a plan to prevent relapse in time to stress and illness. Plan Of Treatment Pending Test Test Name Order Date PROFILE, FASTING (COMPREHENSIVE METABOLI C) 08/11/2023 PROFILE, FASTING (COMPREHENSIVE METABOLI C) 02/05/2021 PROFILE, FASTING (COMPREHENSIVE METABOLI C) 05/13/2023 PROFILE, FASTING (COMPREHENSIVE METABOLI C) 12/06/2020 PROFILE, FASTING (COMPREHENSIVE METABOLI C) 11/28/2022 PROFILE, FASTING (COMPREHENSIVE METABOLI C) 06/11/2021 PROFILE, FASTING (COMPREHENSIVE METABOLI C) 12/03/2023 LIPID PANEL 02/05/2021 LIPID PANEL 12/06/2020 LIPID PANEL 11/28/2022 LIPID PANEL 06/11/2021 FERRITIN 05/13/2023 PSA, TOTAL 12/03/2023 PSA, TOTAL 06/11/2021 PSA, TOTAL 08/11/2023 PSA, TOTAL 12/06/2020 PSA, TOTAL 11/28/2022 CBC w DIFF 11/28/2022 CBC w DIFF 06/11/2021 CBC w DIFF 02/05/2021 CBC w DIFF 12/06/2020 CBC WITH AUTO DIFF 12/03/2023 CBC WITH AUTO DIFF 08/11/2023 CBC WITH AUTO DIFF 05/13/2023 Lipid Panel 12/03/2023 Lipid Panel 08/11/2023 Lipid Panel 05/13/2023 Alkaline Phosphatase Isoenzyme Next Appt Details Provider Name:Koby Peña, 03/17/2024 10:00:00 AM, [address] [place] [address] [address] MA[address], [place], [address], Provider Name:Koby Peña, 04/04/2024 10:00:00 AM, [address] [place] [address] [address]ALL[address] MAST[address], [place], [phone], Provider Name:Koby Peña, 12/02/2024 10:00:00 AM, [address] [place] [address] GALL[address] MAST[address], [place], [address], Insurance Providers Payer Name Payer Address Payer Phone Subscriber Number Group Number Insured Name Patient Relationship to Insured Coverage Start Date Coverage End Date MEDICARE NGS [address] [place] [address] [id number] Jaren Up Self - patient is the insured [facility] [address] [place], [place] [id number] [phone] [id number] Jaren Up Self - patient is the insured Medical (General) History Medical History History ICD Code hyperlipidemia COPD by 2015 PFTs obesity 2008 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 Montague, [facility] [place], for iron deficiency anemia 04/2018 [place] [facility] [place] Partial left medial meniscec geovani and debridement, Dr. Armand Milner, [facility] [place] 03/2010 Incomplete colonoscopy, [facility], Dr. Mo, severe sigmoid diverticulosis 01/2010 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 De León 03/2009 Bronchoscopy for interstitial pneumonia, [facility] 07/2007 bilateral knee replacements fracture right arm age 18 1962
--- OUTSIDE RECORDS SUMMARY | 2024-03-16 19:54 | XMS_ITS | Patient Health Record ---
Author Organization [facility] [address] Address [address] [place] [address] Care Team Providers Care Ip Attorney Name Role Phone Koby Peña MD Primary Care Provider UnavailMelquiades Vargas Unavailable [phone] Allergies Allergen (clinical drug ingredient) Drug/Non Drug Allergy documented on EMR Reaction Allergy Type Onset Date Status amoxicillin Amoxicillin hives Drug Allergy Act apoorva Substance with sulfonamide structure and antibacterial mechanism of action (substance) Sulfa Antibiotics hives Drug Allergy Active Reason For Referral No Information Medications Medication SIG (Take, Route, Fr equency, Duration) Notes Start Date End Date Status Pravastatin Sodium A ctive Incruse Ellipta Acti ve Breo Ellipta Active Social History Tobacco Use: Social History Observation Description Date Details (start date - stop date) Former Smoker NA - 10/16/1980 Tobacco Use/Smoking Question Answer Notes Are you a: former smoker When did you stop smoking? 10/16/1980 Additional Findings: Tobacco Non-User Ex-cigaret te smoker Alcohol Screen Question Answer Notes Did you have a drink contain ing alcohol in the past year? Yes How often did you have a dri nk containing alcohol in the past year? 2 to 3 times a week (3 points) Points 3 Interpretation Negative Tobacco use other than smoking: Question Answer Notes Are you an other tobacco user? No Plan Of Treatment No Information Insurance Providers Payer Name Payer Address Payer Phone Subscriber Number Group Number Insured Name Patient Relationship to Insured Coverage Start Date Coverage End Date Medicare [employer] [facility] [employer] [address] [facility] [place] [address] [id number] Jaren Up Self - patient is the insured [employer] [address] [place] [address] [id number] Jaren Up Self - patient is the insured Medical (General) History Medical History History ICD Code Broken bones Heart disease Lung disease Measles Joint implants/screws Surgical History Surgery Date(Month/Year) back fusion 2016 left hip replacement 2017 right hip 2018 testicular tumor removal 1971 hernia? 1960
== END 2024-03-15 11:35 | disposition home or self-care (01) ==
PROVIDERS: PCP Internal Medicine Medical Oncology; Visit Provider Internal Medicine
DX: J44.1 Chronic obstructive pulmonary disease with (acute) exacerbation (principal); R22.2 Localized swelling, mass and lump, trunk
CPT/HCPCS: 99213

== ENCOUNTER → 2024-03-15 10:32 | Outpatient (BNVA) | payer MEDICARE, SELFPAY | PROVIDERS: PCP Internal Medicine Medical Oncology; Visit Provider Internal Medicine | DX: J44.1 Chronic obstructive pulmonary disease with (acute) exacerbation (principal); R91.8 Other nonspecific abnormal finding of lung field; R22.2 Localized swelling, mass and lump, trunk | CPT/HCPCS: 99212 ==

== ENCOUNTER 2024-03-21 10:43 | Outpatient (AMB) | payer MEDICARE, SELFPAY ==
--- NOTE | 2024-03-21 10:47 | A.OFFVIS_ITS ---
Intake Visit Reasons: s/p Chest wall mass Intake Note: Patient here s/p chest wall mass. Hx of COPD. Patient c/o: rib cage pain. Chest CT: 03-07-2024. Rivet Sticker Required: No Accompanied by: Self / Same As Patient Allergies Penicillins [PENICILLINS] Allergy (Intermediate, Verified 03/21/24 10:48) SWELLING Sulfa (Sulfonamide Antibiotics) [Sulfa (Sulfonamides)] Allergy (Mild, Verified 03/21/24 10:48) RASH Medication List - Last Reconciled 03/21/24 by Vasiliy Alvarado MD albuterol sulfate 90 mcg/actuation 2 puffs PO Q4H PRN Breo Ellipta 200-25 mcg/dose (fluticasone furoate-vilanterol) 1 ea PO DAILY NS Incruse Ellipta 62.5 mcg/actuation (umeclidinium) 1 inh PO DAILY NS lidocaine 5% 1 patch topical DAILY multivitamin (Daily Multi-Vitamin tablet) 1 tab PO DAILY pravastatin 80 mg PO BEDTIME prednisone 10 mg PO DIRECTED HPI Comments Details: Patient was known to me from a recent hospitalization were underwent thoracic consultation for a right rib mass as well as left lung lesions. Patient was a significant smoking history as well. He had a right rib biopsy scheduled at the time but because of his exacerbation of COPD being so severe, it was decided to have this performed as an outpatient. That is why the patient was here regarding this. He presents here with a friend we will also drove him to the office. Chart was reviewed and patient evaluated. Known to me as mentioned above from recent hospitalization. Patient has had persistent right upper axillary rib pain in the area of his mass. No new respiratory issues. He is able to ambulate with no oxygen and he is not having respiratory difficulty as he was during his recent hospitalization. [facility] Medical History COPD exacerbation Upper respiratory infection COPD (chronic obstructive pulmonary disease) Surgical History History of arthroscopy of left knee History of back surgery History of total replacement of both hip joints Social History Household Members: None Housing: House Do you presently have visiting nurse or other home services: No Alcohol intake: current Alcohol intake frequency: a few times a month Alcohol type: beer Patient Tobacco Use Status: Former Tobacco user service: Yes Physical Exam Chest Other: Right costal discomfort in the axilla in the area of his rib issue. Assessment & Plan Assessment & Plan (1) Rib lesion: Code(s): M89.9 - Disorder of bone, unspecified Category: Surgical Plan: Current plan is to reschedule right rib biopsy as well is to obtain a PET scan for presumed neoplastic process for staging. He will see me after the studies or p.r.n.. All questions answered. (2) Lung mass: Comment: A FEW NODULAR DENSITIES NOTED IN THE LEFT LOWER LOBE THE LARGER BEING 2.2 CMs THIS COULD BE INFLAMMATORY VERSUS NEOPLASTIC Code(s): R91.8 - Other nonspecific abnormal finding of lung field Category: Medical Plan: See above (3) Chest wall mass: Comment: HE HAS HISTORY OF A RECENT FALL HITTING THE RIGHT SIDE OF THE CHEST, BUT PAIN WAS MINIMAL. AT THE TIME OF ADMISSION CTA OF THE CHEST WAS DONE TO RULE OUT PULMONARY EMBOLI. A MASS IN THE RIGHT UPPER CHEST WITH INVOLVEMENT OF THE 3RD RIB WAS NOTED, QUESTION OF FRACTURE DUE TO THE FALL AND ALSO QUESTION OF NEOPLASTIC PROCESS. Code(s): R22.2 - Localized swelling, mass and lump, trunk Category: Surgical Plan: See above Plan See above Orders: Orders CT biopsy lung RT Today M89.9 - Disorder of bone, unspecified, R91.8 - Other nonspecific abnormal finding of lung field PET CT fusion skull to thigh Today R22.2 - Localized swelling, mass and lump, trunk Coding Level of Care Code Est Pt Level 4 (79728) Diagnoses Rib lesion M89.9 Lung mass R91.8 Chest wall mass R22.2
--- OUTSIDE RECORDS SUMMARY | 2024-03-21 10:49 | XMS_ITS | Patient Health Record ---
Author Organization [facility] [address] Address [address] [place] [address] Care Team Providers Care Tare Man Name Role Phone Koby Peña MD Primary Care Provider UnavailMelquiades Vargas Unavailable [phone] Allergies Allergen (clinical drug ingredient) Drug/Non Drug [...] Start Date Coverage End Date Medicare [facility] [employer] [address] [facility] [place] [address] [id number] Jaren Up Self - patient is the insured [employer] [address] [place] [address] [id number] Jaren Up Self - patient is the insured Medical (General) History Medical History History ICD Code Broken bones Heart disease Lung disease Measles Joint implants/screws Surgical History Surgery Date(Month/Year) back fusion 2016 left hip replacement 2017 right hip 2018 testicular tumor removal 1971 hernia? 1960
--- OUTSIDE RECORDS SUMMARY | 2024-03-21 10:49 | XMS_ITS ---
Author Organization Koby Peña III, MD Address [address] [place] [address] Care Team Providers Care American Studies Professor Name Role Phone Koby Peña Primary Care Provider REASON FOR VISIT Message Social History Sex Assigned At : Social History Observation Description Sex Assigned At Male Encounters Encounter Location Date Provider Diagnosis Koby Peña III, MD [address] [place] [address] [place] [id number] 03/14/2024 Koby Peña Plan Of Treatment Next Appt Details Provider Name:Koby Peña, 03/31/2024 10:30:00 AM, [address] [place] [address] [place], [address], Provider Name:Koby Peña, 04/04/2024 10:00:00 AM, [address] [place] [address] [place], [phone], Provider Name:Koby Peña, 12/02/2024 10:00:00 AM, [address] [place] [address] [place], [phone], Progress Notes * Jaren CANELA EDOB:[birth year] (79 yo M)Acc No.[id number]:03/14/2024 Patient:?Jaren CANELA :1945???Age:79 Y???Sex:Male Address:[address] [place] [address] * true * Date:? Generated for Printi ng/Faxing/eTransmitting on:?03/21/2024 10:48 AM EST
--- OUTSIDE RECORDS SUMMARY | 2024-03-21 10:49 | XMS_ITS ---
Author Organization Koby Peña III, MD Address [address] [place] [address] Care Team Providers Care Mitochondrial Disorders Counselor Name Role Phone Koby Peña Primary Care Provider REASON FOR VISIT Denying Home Services Social History Sex Assigned At : Social History Observation Description Sex Assigned At Male Encounters Encounter Location Date Provider Diagnosis Koby Peña III, MD [address] [place] [address] [place] [address] 03/15/2024 Koby Peña Plan Of Treatment Next Appt Details Provider Name:Koby Peña, 03/31/2024 10:30:00 AM, [address] [place] [address] [place], [address], Provider Name:Koby Peña, 04/04/2024 10:00:00 AM, [address] [place] [address] [place], [address], Provider Name:Koby Peña, 12/02/2024 10:00:00 AM, [address] [place] [address] [place], [phone], Progress Notes * Jaren CANELA EDOB:[birth year] (79 yo M)Acc No.[id number]:03/15/2024 Patient:?Jaren CANELA :1945???Age:79 Y???Sex:Male Address:[place] [address] * true * Date:? Generated for Printi ng/Faxing/eTransmitting on:?03/21/2024 10:48 AM EST
--- OUTSIDE RECORDS SUMMARY | 2024-03-21 10:49 | XMS_ITS | Patient Health Record ---
Author Organization Koby Peña III, MD Address [address] [place] [address] Care Team Providers Care Associate Genetics Professor Name Role Phone Koby Peña Primary Care Provider [phone] Allergies Allergen (clinical drug ingredient) Drug/Non Drug Allergy documented on EMR Reaction Allergy Type Onset Date Status Penicillin Unknown Drug Allergy Active Substance with sulfonamide structure and antibacterial mechanism of action (substance) Sulfa Antibiotics Unknown Drug Allergy Active Results Component Value Reference Range Notes Complete Blood Count Auto Di ff Reviewed date:03/31/2023 10:45:16 AM Interpretation: Performing Lab:[facility], [address] [place] [phone] Notes/Report: White Blood Count 9.9 4.8-10.8 X10*3/uL [...] NRBC Abs Auto 0.000 0.0-0.012 X10*3/uL Comprehensive [place]. Panel Fa st Reviewed date:03/31/2023 10:45:16 AM Interpretation: Performing Lab:[address] [phone] Notes/Report: Sodium 142 135-145 mmol/L Potassium 4.4 3.3-5.1 mmol/L Chloride 106 96-108 mmol/L Carbon Dioxide 27 22-29 mmol/L Anion Gap 13 12-20 Blood Urea Nitrogen 14 9-16 mg/dL Creatinine 0.80 0.5-1.4 mg/dL Estimated Glomerular Filt Rate > 60 NOTE: For -[place] Islander individuals, multiply the result by 1.210. Chronic [...] Panel Reviewed date:03/31/2023 10:45:16 AM Interpretation: Performing Lab:[address] [phone] Notes/Report: Triglycerides 163 <150 mg/dL Desirable Triglyceride: [...] Antigen Reviewed date:03/31/2023 10:45:16 AM Interpretation: Performing Lab:[facility], [address] [place] [phone] Notes/Report: Prostate Specific Antigen 1.11 <0.05-4.0 ng/mL PSA methodology: Davila Alinity i Chemiluminescent Microparticle Immunoassay (CMIA) Complete Blood Count Auto Di ff Reviewed date:08/09/2023 01:08:24 PM Interpretation: Performing Lab:[facility], [address] [place] [phone] Notes/Report: White Blood Count 8.8 4.8-10.8 X10*3/uL [...] NRBC Abs Auto 0.000 0.0-0.012 X10*3/uL Comprehensive [place]. Panel Fa Reviewed date:08/09/2023 01:08:24 PM Interpretation: Performing Lab:[facility], [address] [place] [phone] Notes/Report: Sodium 141 135-145 mmol/L Potassium 4.3 3.3-5.1 mmol/L Chloride 105 96-108 mmol/L Carbon Dioxide 27 22-29 mmol/L Anion Gap 13 12-20 Blood Urea Nitrogen 16 9-16 mg/dL Creatinine 0.78 0.5-1.4 mg/dL Estimated Glomerular Filt Rate > 60 NOTE: For -[place] Islander individuals, multiply the result by 1.210. Chronic [...] Ferritin Reviewed date:08/09/2023 01:08:24 PM Interpretation: Performing Lab:[facility], [address] [place] [phone] Notes/Report: Ferritin 86 20-250 ng/mL Lipid Panel Reviewed date:08/09/2023 01:08:24 PM Interpretation: Performing Lab:[facility], [address] [place] [phone] Notes/Report: Triglycerides 160 <150 mg/dL Desirable Triglyceride: [...] patients with liver disease. Alkaline Phosphatase Isoenzy tx Reviewed date:09/14/2023 04:19:47 AM Interpretation: Performing Lab:[facility], [address] [place] [phone] Notes/Report: Alk.Phos Isoenzymes Total 130 35-144 U/L Alk.Phos Isoenzymes Intest 9 1-24 % Alk.Phos Isoenzymes Bone 34 28-66 % Alk.Phos Isoenzymes Liver 57 25-69 % Alk.Phos Isoenzymes Placental 0 <=0 % Alk.Phos Iso. Macrohepatic 0 <=0 % THIS TEST WAS PERFORMED AT: [facility] [id number] [place] [phone] MARYSOL SOLANO MD,PHD Alk.Phos Isoenzymes Interp TNP Complete Blood Count Auto Di ff Reviewed date:11/27/2023 03:44:00 PM Interpretation: Performing Lab:[facility], [address] [place] [phone] Notes/Report: White Blood Count 8.0 4.8-10.8 X10*3/uL [...] NRBC Abs Auto 0.000 0.0-0.012 X10*3/uL Comprehensive [place]. Panel Fa st Reviewed date:11/27/2023 03:44:00 PM Interpretation: Performing Lab:[facility], [address] [place] [phone] Notes/Report: Sodium 144 135-145 mmol/L Potassium 4.3 3.3-5.1 mmol/L Chloride 107 96-108 mmol/L Carbon Dioxide 29 22-29 mmol/L Anion Gap 12 12-20 Blood Urea Nitrogen 16 9-16 mg/dL Creatinine 0.81 0.5-1.4 mg/dL Estimated Glomerular Filt Rate > 60 NOTE: For -[place] Islander individuals, multiply the result by 1.210. Chronic [...] Panel Reviewed date:11/27/2023 03:44:00 PM Interpretation: Performing Lab:[facility], [address] [place] [phone] Notes/Report: Triglycerides 159 <150 mg/dL Desirable Triglyceride: [...] Antigen Reviewed date:11/27/2023 03:44:00 PM Interpretation: Performing Lab:[facility], [address] [place] [phone] Notes/Report: Prostate Specific Antigen 1.46 <0.05-4.0 ng/mL [...] ff Reviewed date:03/14/2024 05:01:23 AM Interpretation: Performing Lab:[facility], [address] [place] [phone] Notes/Report: White Blood Count 12.4 4.8-10.8 X10*3/uL [...] gy Reviewed date:03/14/2024 05:01:23 AM Interpretation: Performing Lab:[facility], [address] [place] [phone] Notes/Report: Hold Lav - Possible Hematology SEE NOTE Specimen will be held untested for 8 hours. Call Hematology if testing is desired. Prothrombin Time INR Reviewed date:03/14/2024 05:01:23 AM Interpretation: Performing Lab:[facility], [address] [place] [phone] Notes/Report: Prothrombin Time 12.5 10.9-12.4 SEC INTERNATIONAL [...] Time Reviewed date:03/14/2024 05:01:23 AM Interpretation: Performing Lab:[facility], [address] [place] [phone] Notes/Report: Partial Thromboplastin Time 30.1 26.0-36.8 SEC For information regarding the monitoring of direct thrombin inhibitors, please refer to Pharmacy. Comprehensive Met. Panel Reviewed date:03/14/2024 05:01:23 AM Interpretation: Performing Lab:[facility], [address] [place] [phone] Notes/Report: Sodium 140 135-145 mmol/L Potassium 3.9 [...] Acid Reviewed date:03/14/2024 05:01:23 AM Interpretation: Performing Lab:[facility], [address] [place] [phone] Notes/Report: Lactic Acid 4.2 0.5-2.0 mmol/L Critical value for test LATIC: Results called to and read back by: DAVIE Person calling: ROXANNE Date:03/07/2024 Time: 2010 Troponin-I High Sensitivity Reviewed date:03/14/2024 05:01:23 AM Interpretation: Performing Lab:[facility], [address] [place] [phone] Notes/Report: Troponin-I High Sensitivity < 2.7 <3.5-35.0 ng/L The Davila high sensitivity Troponin-I results should be used in conjunction with other diagnostic information such as ECG, clinical observations and information, and patient symptoms to aid in the diagnosis of AL. B Type Natriuretic Peptide Reviewed date:03/14/2024 05:01:23 AM Interpretation: Performing Lab:[address] [phone] Notes/Report: B Type Natriuretic Peptide 10 <100 pg/mL For those patients who are being treated with Natrecor (nesiritide, recombinant BNP), BNP testing should be performed at least two hours post treatment in order to ensure that only endogenous levels of BNP are detected. Demetris Tee Reviewed date:03/14/2024 05:01:23 AM Interpretation: Performing Lab:[facility], [address] [place] [phone] Notes/Report: Demetris Tee See Note Specimen held untested for 24 hours; Call to request Chemistry testing. Ethanol Reviewed date:03/14/2024 05:01:23 AM Interpretation: Performing Lab:[address] [phone] Notes/Report: Ethanol < 10 Serum/plasma ethanol results are to be used for medical/treatment purposes only. SARS-CoV2/FLU/RSV Reviewed date:03/14/2024 05:01:24 AM Interpretation: Performing Lab:[facility], [address] [place] [phone] Notes/Report: Influenza A PCR NEGATIVE Negative Influenza [...] by authorized laboratories. Testing performed on the [employer] GeneXpert utilizing real-time RT-PCR. All SARS CoV2 and positive influenza A/B results are reported to [facility]. Blood Culture (First) Reviewed date:03/14/2024 05:01:23 AM Interpretation: Performing Lab:[address] [phone] Notes/Report: Blood Culture (First) No growth after 5 days. Blood Culture (Second) Reviewed date:03/14/2024 05:01:23 AM Interpretation: Performing Lab:[address] [phone] Notes/Report: Blood Culture (Second) No growth after 5 days. Lactic Acid-LAB USE ONLY Reviewed date:03/14/2024 05:01:24 AM Interpretation: Performing Lab:[address] [phone] Notes/Report: Lactic Acid-LAB USE ONLY 2.2 0.5-2.0 mmol/L Critical value for test(s): LACTA Results called to and read back by: NAVEED Person calling: CORETTA Date: 03/07/24 Time: 2249 D Dimer High Sensitivity Reviewed date:03/14/2024 05:01:24 AM Interpretation: Performing Lab:[facility], [address] [place] [phone] Notes/Report: D Dimer High Sensitivity 823 D-DIMER [...] Gel Reviewed date:03/14/2024 05:01:24 AM Interpretation: Performing Lab:[facility], [address] [place] [phone] Notes/Report: Hold Green Gel See Note Specimen held untested for 24 hours; Call to request Chemistry testing. CT angio chest PE protocol Reviewed date:03/14/2024 05:01:24 AM Interpretation: Performing Lab: Notes/Report: [address] [place] [address] CT Scan Report Signed Patient: Jaren Up MR#: [id number] 287 : 1945 Acct:[id number] Age/Sex: 79 / M ADM Date: 03/07/24 Loc: [place] [address]: Subhash Welch MD Ordering Physician: Jeffrey Ellsworth MD Date of Service: 03/07/24 Procedure(s): CT angio chest PE protocol Accession Number(s): [id number] cc: Koby Peña MD; Jeffrey Ellsworth MD [...] by: Clarence Block MD 03/07/2024 11:20 PM [facility] Dictated By: Clarence Block MD Signed By: <Electronically signed by Clarence Block MD in OV> 12/02/24 2320 DD/ 48 TD/TT: 03/07/24 1920 Land Surveyor Assistant: [address] [address] [address] Scan Report Signed Patient: Kane Up MR#: [id number] 287 : 1945 Acct:[id number] Age/Sex: 79 / M ADM Date: 03/07/24 Loc: [place] [address]: Niki Welch MD Ordering Physician: Jeffrey Ellsworth MD Date of Service: 03/07/24 Procedure(s): CT ang io chest PE protocol Accession Number(s): [id number] cc: Koby Peña MD; Jeffrey Ellsworth MD [...] by: Clarence Block MD 03/07/2024 11:20 PM [facility] Dictated By: Clarence Block MD Signed By: <Electronically signed by Clarence Block MD in OV> 03/07/240 DD/ 1849 TD/TT: 03/07/24 1920 Land Surveyor Assistant: XR chest 2V Reviewed date:03/14/2024 05:01:24 AM Interpretation: Performing Lab: Notes/Report: [address] [address] XRay Report Signed Patient: Jaren Up MR#: [id number] 287 : 1945 Acct:[id number] Age/Sex: 79 / M ADM Date: 03/07/24 Loc: HO.ED Attending Dr: Ordering Physician: Generic ED Physician Date of Service: 03/07/24 Procedure(s): XR chest 2V Accession Number(s): [id number] cc: Koby Peña MD; Generic ED Physician [...] 03/07/24 1648 DD/ 1545 TD/TT: 03/07/24 1550 Land Surveyor Assistant: [place] [address] XRay Report Signed Patient: Kane Up MR#: [id number] 287 : 1945 Acct:[id number] Age/Sex: 79 / M ADM Date: 03/07/24 Loc: .ED Attending Dr: Ordering Physician: Generic ED Physician Date of Service: 03/07/24 Procedure(s): XR joan st 2V Accession Number(s): [id number] cc: Koby Peña MD; Generic ED Physician [...] 03/07/24 1648 DD/ 1545 TD/TT: 03/07/24 1550 Land Surveyor Assistant: COREY XR shoulder RT min 2V Reviewed date:03/14/2024 05:01:24 AM Interpretation: Performing Lab: Notes/Report: [address] [address] XRay Report Signed Patient: Jaren Up MR#: [id number] 287 : 1945 Acct:[id number] Age/Sex: 79 / M ADM Date: 03/07/24 Loc: HO.ED Attending Dr: Ordering Physician: Generic ED Physician Date of Service: 03/07/24 Procedure(s): XR shoulder RT min 2V Accession Number(s): [id number] cc: Koby Peña MD; Generic ED Physician [...] 03/07/24 1737 DD/ 1640 TD/TT: 03/07/24 1648 Land Surveyor Assistant: DANYA [address] [address] XRay Report Signed Patient: Kane Up MR#: [id number] 287 : 1945 Acct:[id number] Age/Sex: 79 / M ADM Date: 03/07/24 Loc: HO.ED Attending Dr: Ordering Physician: Generic ED Physician Date of Service: 03/07/24 Procedure(s): XR shoulder RT min 2V Accession Number(s): [id number] cc: Koby Peña MD; Generic ED Physician [...] 03/07/24 1737 DD/ 1640 TD/TT: 03/07/24 1648 Land Surveyor Assistant: DANYA Complete Blood Count Auto Di ff Reviewed date:03/14/2024 05:01:23 AM Interpretation: Performing Lab:[facility], [address] [place] [phone] Notes/Report: White Blood Count 9.4 4.8-10.8 X10*3/uL [...] Panel Reviewed date:03/14/2024 05:01:23 AM Interpretation: Performing Lab:[address] [phone] Notes/Report: Sodium 142 135-145 mmol/L Potassium 3.8 [...] ONLY Reviewed date:03/14/2024 05:01:23 AM Interpretation: Performing Lab:[address] [phone] Notes/Report: Lactic Acid-LAB USE ONLY 1.2 0.5-2.0 mmol/L PSA,Total (Free>4and<10) Reviewed date:03/14/2024 05:01:23 AM Interpretation: Performing Lab:[facility], [address] [place] [phone] Notes/Report: PSA,Total (Free>4and<10) 2.51 0.00-4.00 ng/mL A [...] between 4.0 and 10.0 ng/mL. PSA methodology: Davila Alinity i Chemiluminescent Microparticle Immunoassay (CMIA) Reason For Referral Reason Evaluate and Treat Diagnosis 1 Right shoulder pain (M25.511) Referral Organization Koby Peña III, MD Referring Provider First Name Koby Referring Provider Last Name Casey Referring Provider Speciality Internal M edicine Referred Provider [facility] er, Orthopedic Surgeons Referred Provider Specialty Orthopedic S urgery Referral Priority Routine Medications Medication SIG (Take, Route, Frequency, Duration) Notes Start Date End Date Status Incruse Ellipta 62.5 MCG/INH INHALE 1 PUFF BY MOUTH DAILY Inhalation Active Breo Ellipta 200-25 MCG/INH Inhalation Active predniSONE 10 MG 1 tablet Orally Once a day for 30 days 03/17/2024 03/12/2025 Active Pravastatin Sodium 80 MG take 1 tablet b y mouth every day Active Albuterol Sulfate HFA 108 (90 Base) MCG/ACT Inhalation Active Pravastatin Sodium 80 MG 1 tablet Orally Once a day for 90 days 03/17/2024 Active Immunizations Vaccine Route Administration Date Status [...] Problem Status W/U Status Risk Notes Problem 8368589 Former smoker (Z87.891) Active confirmed He seems motivated not to smoke. We formulated a plan to prevent relapse in time to stress and illness. Problem 767992410 Overweight (E66.3) Active confirmed He has gained 2 pounds. His body mass index is 29. We made a plan to lose weight at a rate of one half of a pound per week Problem 92016574 Allergy to sulfa drugs (Z88.2) Active confirmed Problem 668905261 Mixed hyperlipidemia (E78.2) Active confirmed His lipids are currently stable and no change in his regimen as necessary. Problem 092994156 Low back pain (M54.5) Active confirmed He has had surgery on his lumbar spine for degenerative disc disease and impingement of the left L5 nerve root at the foramen. Problem COPD - Chronic obstructive pulmonary disease (61193638) COPD (chronic obstructive pulmonary disease) (J44.9) Active confirmed He had a re cent hospitalization for respiratory failure. He is doing well now with prednisone. This was continued until he sees his home specialist. He is comfortable at rest or with prolonged exertion becomes dyspneic and tachycardic. He is no longer smoking. 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 It is not clear if he was ever treated. He has never had clinical TB. Some years ago he developed an interstitial infiltrate in his lung and was hospitalized. 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 He has recovered from that. Problem 892672780 History of iron deficiency anemia (Z86.2) Active confirmed His iron deficiency anemia has resolved. He has not noticed any bleeding. He is compliant with his treatment. His ferritin is 86. Problem 045852627 Primary osteoarthritis of both knees (M17.0) Active confirmed He has had knee surgery. He will continue on current therapy and be monitored carefully. Problem 02695180 Pulmonary emphysema, unspecified emphysema type (J43.9) Active confirmed His lung diseas e is stable. He is no longer smoking. He is short of breath with exertion but not during the course of daily life. Problem 7845146278839 Benign prostatic hyperplasia with lower urinary tract symptoms (N40.1) Active confirmed He rises from sleep once and sometimes twice a night. He had no nodules in his prostate. We discussed modifications to his lifestyle he could make to reduce nocturia. Problem 686357199 Pulmonary neoplasm (D49.1) Active confirmed He has laurie ral abnormal masslike densities in the left lower lobe and destruction of the right third rib. A needle biopsy of the rib mass has been ordered under CT guidance. Problem 52261879 ASHD (arterioscleroti c heart disease) (I25.10) Active confirmed He denies any recent angina palpitations or syncope. Current therapy was continued. 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 Problem 173703276 Compression fracture of L1 vertebra, initial encounter (S32.010A) Active confirmed He is asymptomatic. This was an incidental finding on recent CT scan. Vital Signs Heart Rate 80 /min 03/17/2024 cesar thakur ear take his chances Temperature 97.4 degrees Fahrenheit 03/17/2024 Newb yelena new sandeep take his chances Oximetry 97 % 03/17/2024 cesar thakur ear take his chances Blood pressure diastolic 95 mm Hg 03/17/2024 New born new sandeep take his chances Height 72 in 03/17/2024 [place] cesar thakur ear take his chances Blood pressure systolic 127 mm Hg 03/17/2024 Newb yelena new sandeep take his chances Weight 207 lbs 03/17/2024 cesar thakur ear take his chances BMI 28.07 kg/m2 03/17/2024 Eliseo silva take his chances Encounters Encounter Location Date Provider Diagnosis Koby Peña III, MD [address] [place] [address] [place] [address] 03/31/2023 Koby Peña Mixed hyperlipidemia E78.2 ; COPD (chronic obstructive pulmonary disease) J44.9 ; Pulmonary emphysema, unspecified emphysema type J43.9 ; ASHD (arteriosclerotic heart disease) I25.10 ; Primary osteoarthritis of both knees M17.0 ; Benign prostatic hyperplasia with lower urinary tract symptoms N40.1 ; Overweight E66.3 and Elevated alkaline phosphatase level R74.8 Koby Peña III, MD [address] [place] [address] [place] [address] 05/13/2023 Koby Peña Mixed hyperlipidemia E78.2 ; Overweight E66.3 ; Alkaline phosphatase raised R74.8 ; COPD (chronic obstructive pulmonary disease) J44.9 ; Pulmonary emphysema, unspecified emphysema type J43.9 ; ASHD (arteriosclerotic heart disease) I25.10 and Primary osteoarthritis of both knees M17.0 Koby Peña III, MD [address] [place] [address] [place] [address] 08/11/2023 Koby Peña Mixed hyperlipidemia E78.2 ; Benign prostatic hyperplasia with lower urinary tract symptoms N40.1 ; Overweight E66.3 ; COPD (chronic obstructive pulmonary disease) J44.9 ; Pulmonary emphysema, unspecified emphysema type J43.9 ; ASHD (arteriosclerotic heart disease) I25.10 ; History of iron deficiency anemia Z86.2 and Primary osteoarthritis of both knees M17.0 Koby Peña III, MD [address] [place] [address] [place] [address] 12/03/2023 Koby Peña Mixed hyperlipidemia E78.2 ; Benign prostatic hyperplasia with lower urinary tract symptoms N40.1 ; COPD (chronic obstructive pulmonary disease) J44.9 ; Pulmonary emphysema, unspecified emphysema type J43.9 ; ASHD (arteriosclerotic heart disease) I25.10 ; Primary osteoarthritis of both knees M17.0 ; Overweight E66.3 and Former smoker Z87.891 Koby Peña III, MD [address] [place] [address] [place] [address] 03/17/2024 Koby Peña Mixed hyperlipidemia E78.2 ; Pulmonary emphysema, unspecified emphysema type J43.9 ; COPD (chronic obstructive pulmonary disease) J44.9 ; Primary osteoarthritis of both knees M17.0 ; ASHD (arteriosclerotic heart disease) I25.10 ; Former smoker Z87.891 ; Overweight E66.3 ; Paralysis of left vocal cord J38.01 ; Benign prostatic hyperplasia with lower urinary tract symptoms N40.1 ; Compression fracture of L1 vertebra, initial encounter S32.010A and Pulmonary neoplasm D49.1 Koby Peña III, MD [address] [place] [address] [address] [place] [address] 03/14/2024 Koby Peña III, MD [address] [place] [address] [address] [place] [address] 03/15/2024 Koby Peña Assessments Encounter Date Diagnosis [...] lifestyle he could make to reduce nocturia. 03/17/2024 Mixed hyperlipidemia (ICD-10 - E78.2) His lipids are currently stable and no change in his regimen as necessary. 03/17/2024 Pulmonary emphysema, unspecified emphysema type (ICD-10 - J43.9) His lung disease is stable. He is no longer smoking. He is short of breath with exertion but not during the course of daily life. 03/31/2023 Pulmonary emphysema, unspecified emphysema type (ICD-10 [...] and does not qualify for home oxygen. 03/17/2024 COPD (chronic obstructive pulmonary disease) (ICD-10 - J44.9) He had a recent hospitalization for respiratory failure. He is doing well now with prednisone. This was continued until he sees his home specialist. He is comfortable at rest or with prolonged exertion becomes dyspneic and tachycardic. He is no longer smoking. 03/31/2023 ASHD (arteriosclerotic heart disease) (ICD-10 - [...] not during the course of daily life. 03/17/2024 Primary osteoarthritis of both knees (ICD-10 - M17.0) He has had knee surgery. He will continue on current therapy and be monitored carefully. 03/31/2023 Primary osteoarthritis of both knees (ICD-10 [...] palpitations or syncope. Current therapy was continued. 03/17/2024 ASHD (arteriosclerotic heart disease) (ICD-10 - I25.10) [...] on current therapy and be monitored carefully. 03/17/2024 Former smoker (ICD-10 - Z87.891) He seems motivated not to smoke. We formulated a plan to prevent relapse in time to stress and illness. 03/31/2023 Overweight (ICD-10 - E66.3) His body [...] one half of a pound per week 03/17/2024 Overweight (ICD-10 - E66.3) He has gained [...] and be monitored carefully. 12/03/2023 Former smoker (ICD-10 - Z87.891) He seems motivated not to smoke. We formulated a plan to prevent relapse in time to stress and illness. 03/17/2024 Paralysis of left vocal cord (ICD-10 - J38.01) His voice has improved in recent months and is approaching normal. 03/17/2024 Benign prostatic hyperplasia with lower urinary tract symptoms (ICD-10 - N40.1) He rises from sleep once and sometimes twice a night. He had no nodules in his prostate. We discussed modifications to his lifestyle he could make to reduce nocturia. 03/17/2024 Compression fracture of L1 vertebra, initial encounter (ICD-10 - S32.010A) He is asymptomatic. This was an incidental finding on recent CT scan. 03/17/2024 Pulmonary neoplasm (ICD-10 - D49.1) He has several abnormal masslike densities in the left lower lobe and destruction of the right third rib. A needle biopsy of the rib mass has been ordered under CT guidance. Plan Of Treatment Pending Test Test Name [...] Isoenzyme Next Appt Details Provider Name:Koby Peña, 03/31/2024 10:30:00 AM, [address] [facility] [address], [place], [address], Provider Name:Koby Peña, 04/04/2024 10:00:00 AM, [address] [place] [address] [address], [place], [address], Provider Name:Koby Peña, 12/02/2024 10:00:00 AM, [address] [place] [address] [address], [place], [phone], Insurance Providers Payer Name Payer Address Payer Phone Subscriber Number Group Number Insured Name Patient Relationship to Insured Coverage Start Date Coverage End Date MEDICARE NGS [address] [place] [id number] Jaren Up Self - patient is the insured [facility] [address] [place], [place] [id number] Jaren Up Self - patient is the insured Medical (General) History Medical History History ICD Code hyperlipidemia COPD by 2015 PFTs obesity 2008 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 ASHD penicillin allergy Degenerative joint disease lumbar spine Osteoarthritis both knees with bilateral replacements Penicillin allergy Sulfa allergy Left vocal cord paralysis 2008 History of iron deficiency anemia 2019 Former smoker Positive PPD 1974 2009 for meniscus left knee, resected Gastritis 2019 BPH Chronically elevated alkaline phosphatas e Chronic low back pain, anter olisthesis and left L5 foraminal narrowing by MRI 2015 Neoplastic destruction right third rib Surgical History Surgery Date(Month/Year) fracture right arm age 18 1963 bilateral knee replacements Bronchoscopy for interstitial pneumonia, [facility] 07/2007 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 De León 03/2009 Incomplete colonoscopy, [facility], Dr. Mo, severe sigmoid diverticulosis 01/2010 Partial left medial meniscec geovani and debridement, Dr. Armand Milner, [facility] 03/2010 lumbar spine fusion, [facility] 2016 Upper endoscopy and colonosc opy, Dr. Montague, [facility], for iron deficiency anemia 04/2018 No history Hospitalization History Reason Date(Month/Year) Hospitalized for five days d ue to respiratory distress and shoulder injury.
--- OUTSIDE RECORDS SUMMARY | 2024-03-21 10:49 | XMS_ITS ---
Author Organization Koby Peña III, MD Address [address] [place] [address] Care Team Providers Care Sail Repair Person Name Role Phone Koby Peña Primary Care Provider Allergies Allergen (clinical drug ingredient) Drug/Non Drug Allergy documented on EMR Reaction Allergy Type Onset Date Status Penicillin Unknown Drug Allergy Active Substance with sulfonamide structure and antibacterial mechanism of action (substance) Sulfa Antibiotics Unknown Drug Allergy Active Reason For Referral Reason Evaluate and Treat Diagnosis 1 Right shoulder pain (M25.511) Referral Organization Koby Peña III, MD Referring Provider First Name Koby Referring Provider Last Name Casey Referring Provider Speciality Internal M edicine Referred Provider [facility], Orthopedic Surgeons Referred Provider Specialty Orthopedic S urgery Referral Priority Routine REASON FOR VISIT Neoplastic destruction right third rib, COPD, Recent hospitalization for respiratory failure, Hyperlipidemia, Pulmonary emphysema, ASHD, Arthritis both knees, Overall, paralysis, Benign prosthetic hypertrophy Medications Medication SIG (Take, Route, Frequency, Duration) Notes Start Date End Date Status Breo Ellipta 200-25 MCG/INH Inhalation Active predniSONE 10 MG 1 tablet Orally Once a day for 30 days 03/17/2024 03/12/2025 Active Pravastatin Sodium 80 MG take 1 tablet b y mouth every day Active Albuterol Sulfate HFA 108 (90 Base) MCG/ACT Inhalation Active Pravastatin Sodium 80 MG 1 tablet Orally Once a day for 90 days 03/17/2024 Active Incruse Ellipta 62.5 MCG/INH INHALE 1 PUFF BY MOUTH DAILY Inhalation Active Social History Tobacco Use: Social History Observation Description Date Details (start date - stop date) Former Smoker NA - NA Sex Assigned At : Social History Observation Description Sex Assigned At Male Tobacco Use/Smoking Question Answer Notes Patient is a former smoker How long has it been since you last smoked? > 10 years Additional Findings: Tobacco Non-User Ex-cigaret te smoker Problems Problem Type SNOMED Code ICD Code Onset Dates Problem Status W/U Status Risk Notes Problem 709500188 Compression fracture of L1 vertebra, initial encounter (S32.010A) Active confirmed He is asymptomatic. This was an incidental finding on recent CT scan. Problem 219251839 Pulmonary neoplasm (D49.1) Active confirmed He has several abnormal masslike densities in the left lower lobe and destruction of the right third rib. A needle biopsy of the rib mass has been ordered under CT guidance. Vital Signs Temperature 97.4 degrees Fahrenheit 03/17/20 24 Blood pressure systolic 127 mm Hg 03/17/20 24 Blood pressure diastolic 95 mm Hg 024 Heart Rate 80 /min 03/17/2024 Height 72 in 03/17/2024 Weight 207 lbs 03/17/2024 BMI 28.07 kg/m2 03/17/2024 Oximetry 97 % 03/17/2024 [place] [facility] take his chances Encounters Encounter Location Date Provider Diagnosis Koby Peña III, MD [address] [place] [address] [place] [address] 03/17/2024 Koby Peña Mixed hyperlipidemia E78.2 ; [...] initial encounter S32.010A and Pulmonary neoplasm D49.1 Assessments Encounter Date Diagnosis (ICD Code) Assessment Notes Treat ment Notes Treatment Clinical Notes 03/17/2024 Mixed hyperlipidemia (ICD-10 - E78.2) His lipids are currently stable and no change in his regimen as necessary. 03/17/2024 Pulmonary emphysema, unspecified emphysema type (ICD-10 - J43.9) His lung disease is stable. He is no longer smoking. He is short of breath with exertion but not during the course of daily life. 03/17/2024 COPD (chronic obstructive pulmonary disease) (ICD-10 - J44.9) He had a recent hospitalization for respiratory failure. He is doing well now with prednisone. This was continued until he sees his hr specialist. He is comfortable at rest or with prolonged exertion becomes dyspneic and tachycardic. He is no longer smoking. 03/17/2024 Primary osteoarthritis of both knees (ICD-10 - M17.0) He has had knee surgery. He will continue on current therapy and be monitored carefully. 03/17/2024 ASHD (arteriosclerotic heart disease) (ICD-10 - I25.10) He denies any recent angina palpitations or syncope. Current therapy was continued. 03/17/2024 Former smoker (ICD-10 - Z87.891) He seems motivated not to smoke. We formulated a plan to prevent relapse in time to stress and illness. 03/17/2024 Overweight (ICD-10 - E66.3) He has gained 2 pounds. His body mass index is 29. We made a plan to lose weight at a rate of one half of a pound per week 03/17/2024 Paralysis of left vocal cord (ICD-10 [...] ordered under CT guidance. Plan Of Treatment Medication Medication Name Sig Start Date Stop Date Notes Breo Ellipta 200-25 MCG/INH Inhalation predniSONE 10 MG 1 tablet Orally Once a day for 30 days 03/17/2024 03/12/2025 Pravastatin Sodium 80 MG take 1 tablet b y mouth every day Albuterol Sulfate HFA 108 (9 0 Base) MCG/ACT Inhalation Pravastatin Sodium 80 MG 1 tablet Orally Once a day for 90 days 03/17/2024 Incruse Ellipta 62.5 MCG/INH INHALE 1 PU FF BY MOUTH DAILY Inhalation Referrals Referral Date Details 03/17/2024 03/17/2024, Evaluate and Treat, [facility] Next Appt Details Follow Up: 2 Weeks, Sooner t April 04, Reason: OV, Follow up on health condition Provider Name:Koby Peña, 03/31/2024 10:30:00 AM, [address] [place] [address] [address], [place], [phone], Provider Name:Koby Peña, 04/04/2024 10:00:00 AM, [address] [place] [address] [address], [place], [id number], Provider Name:Koby Peña, 12/02/2024 10:00:00 AM, [address] [place] [address] [address], [place], [id number], Progress Notes * Jaren CANELA EDOB:[birth year] (79 yo M)Acc No.[id number]:03/17/2024 Patient:?Jaren CANELA Provider:?Koby Peña MD :1945???Age:79 Y???Sex:Male Rey e:03/17/2024 Address:[address] [place] [address] [id number] Subjective: * Chief Complaints: * ???Neoplastic destruction ri ght third ribCOPDRecent hospitalization for respiratory failureHyperlipidemiaPulmonary emphysemaASHDArthritis both kneesOverall, paralysisBenign prosthetic hypertrophy * HPI: ???COVID-19 Screening:?Questions?Have you had any new onset fever, chills, cough, congestion, sore throat, shortness of breath, muscle aches??No ???:?The patient, a 79-year-old male, presented with a history of respiratory distress and shoulder pain. He reported that he had fallen while carrying groceries up the stairs, injuring his shoulder. This incident occurred on a Thursday, and by Thursday, he was unable to lift his arm due to the pain. He also reported experiencing difficulty breathing, which he initially attributed to his shoulder injury. However, his condition worsened, and he was admitted to the hospital for five days. During his hospital stay, he was treated with intravenous steroids and antibiotics. He also reported that his heart rate had increased to 100. The patient was discharged a week and a half ago. He also mentioned that he had been spitting up green and yellow phlegm, suggesting a possible infection. The patient also has a history of lung issues, and a biopsy of his rib was postponed due to his poor health. He is scheduled for a PET scan soon. He was admitted to [facility] March 07 and discharge March 12, 2024 after presenting to the emergency room with acute respiratory failure dyspnea oxygen saturation of 82%.? CT scan of the chest once again show destruction of the right seventh rib with several masslike abnormalities in the left lower lobe.? He was treated and improved and is seen today in follow-up.? Needle biopsy of the right rib mass has been ordered.? He is going to be seen by pulmonary.? An incidental finding was compression of L1.? During hospitalization his PSA was normal.? He is being followed at home by the visiting nurses. * ROS:?General/Constitutional:?pain?Both knees and right chest wall.?Chills?denies.?Fatigue?admits.?Fever?denies.?ENT:?Decreased hearing?denies.?Respiratory:?Cough?non-productive.?Cardiovascular:?Chest pain with exertion?denies.?Dyspnea on exertion?denies.?Shortness of breath?with exertion.?Gastrointestinal:?Constipation?occasional.?Decreased appetite?that is associated with weight loss.?Diarrhea?denies.?Heartburn?denies.?Nausea?denies.?Rectal bleeding?denies.?Vomiting?denies.?Hematology:?bruising?denies.?petechiae?denies.?Swollen glands?none have been noted.?Genitourinary:?Frequent urination?twice a night.?Musculoskeletal:?Muscle aches?denies.?Painful joints?denies.?Sciatica?denies.?Weakness?denies.?Skin:?Itching?denies.?Rash?denies.?Skin lesion(s)?denies.?Neurologic:?Difficulty speaking?denies.?Dizziness?denies.?Headache?denies.?Low back pain?denies.?Psychiatric:?Depressed mood?which is mild.? * Medical History:? * Surgical History:?fracture r ight arm age 18 1964bilateral knee replacements Bronchoscopy for interstitial pneumonia, [facility] 07/2007Direct laryngoscopy with biopsy of paralyzed left vocal cord, Dr. De León 03/2009Incomplete colonoscopy, [facility], Dr. Mo, severe sigmoid diverticulosis 01/2010Partial left medial meniscectomy and debridement, Dr. Armand Milner, [facility] 03/2010lumbar spine fusion, [facility] 2016Upper endoscopy and colonoscopy, Dr. Montague, [facility], for iron deficiency anemia 04/2018No history * Hospitalization/Major Diagno stic Procedure:?Hospitalized for five days due to respiratory distress and shoulder injury. * Family History:?Father: dece ased 59 yrs.?Mother: 78 yrs.?Siblings: alive.?1 brother(s) , 2 sister(s) . .? His [...] 10 years ?Additional Findings: Tobacco Non-User?Ex-cigarette smoker ???He was born in [facility]. 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 He has had no toxic exposures. He has no buddhism objections to blood transfusion. He lives in [facility] with his sister. * Medications:?TakingIncruse E llipta [...] Antibiotics: Allergyno[Allergies Verified] Objective: * Vitals:?Ht: 72, Wt:207, BMI: 28.07, BP:127/95, HR:80, Temp:97.4, Oxygen sat %:97, Wt-k.89. [place] new linear take his chances. * ???Past Orders: ???Lab:PSA,Total (Free>4and< 10) (Order Date - 03/09/2024) (Collection Date & Time - 03/09/2024 09:59 AM) ? Value Reference Range ?PSA,Total (Free>4and<10) 2.51 0.00-4.00 - ng/mL Lab:Complete Blood Count Aut o Diff * Collection Date 03/08/2024 03/07/2024 11/26/2023 Collection Time 04:44 AM 04:22 PM 09:08 AM Order Date 03/08/2024 03/07/2024 11/26/2023 White Blood Count 9.4 (Ref Range: 4.8-10.8 X10*3/uL) 12.4?H (Ref Range: 4.8-10.8 X10*3/uL) 8.0 (Ref Range: 4.8-10.8 X10*3/uL) Red Blood Count 4.34?L (Ref Range: 4.60-5.80 X10*6/uL) 5.13 (Ref Range: 4.60-5.80 X10*6/uL) 5.10 (Ref Range: 4.60-5.80 X10*6/uL) Hemoglobin 13.1?L (Ref Range: 14.0-18.0 g/dl) 15.6 (Ref Range: 14.0-18.0 g/dl) 15.6 (Ref Range: 14.0-18.0 g/dl) Hematocrit 39.5?L (Ref Range: 42.0-52.0 %) 46.0 (Ref Range: 42.0-52.0 %) 46.6 (Ref Range: 42.0-52.0 %) Mean Corpuscular Volume 91.0 (Ref Range: 80.0-98.0 fL) 89.7 (Ref Range: 80.0-98.0 fL) 91.4 (Ref Range: 80.0-98.0 fL) Mean Corpuscular Hemoglobin 30.2 (Ref Range: 27.0-33.0 pg) 30.4 (Ref Range: 27.0-33.0 pg) 30.6 (Ref Range: 27.0-33.0 pg) Mean Corpuscular HGB Conc 33.2 (Ref Range: 31.0-36.0 g/dl) 33.9 (Ref Range: 31.0-36.0 g/dl) 33.5 (Ref Range: 31.0-36.0 g/dl) Red Cell Distribution Width 14.6 (Ref Range: 11.0-16.0 %) 14.6 (Ref Range: 11.0-16.0 %) 14.3 (Ref Range: 11.0-16.0 %) Platelet Count 183 (Ref Range: 160-400 X10*3/uL) 200 (Ref Range: 160-400 X10*3/uL) 239 (Ref Range: 160-400 X10*3/uL) Mean Platelet Volume 9.1?L (Ref Range: 9.4-12.4 fL) 8.9?L (Ref Range: 9.4-12.4 fL) 8.5?L (Ref Range: 9.4-12.4 fL) Neutrophils Percent Auto 73.9?H (Ref Range: 45-73 %) 76.2?H (Ref Range: 45-73 %) 67.6 (Ref Range: 45-73 %) Imm Gran Pct Auto 0.3 (Ref Range: 0.0-0.4 %) 0.6?H (Ref Range: 0.0-0.4 %) 0.2 (Ref Range: 0.0-0.4 %) Lymphocytes Percent Auto 10.0?L (Ref Range: 20-40 %) 9.6?L (Ref Range: 20-40 %) 20.7 (Ref Range: 20-40 %) Monocytes Percent Auto 10.9 (Ref Range: 2-11 %) 9.9 (Ref Range: 2-11 %) 9.2 (Ref Range: 2-11 %) Eosinophils Percent Auto 4.5?H (Ref Range: 0-4 %) 3.5 (Ref Range: 0-4 %) 1.9 (Ref Range: 0-4 %) Basophils Percent Auto 0.4 (Ref Range: 0-2 %) 0.2 (Ref Range: 0-2 %) 0.4 (Ref Range: 0-2 %) NRBC Pct Auto 0.0 (Ref Range: 0.0-0.2 /100WBC) 0.0 (Ref Range: 0.0-0.2 /100WBC) 0.0 (Ref Range: 0.0-0.2 /100WBC) Neutrophils Absolute Auto 7.0 (Ref Range: 2.0-8.3 x10*3/uL) 9.4?H (Ref Range: 2.0-8.3 x10*3/uL) 5.4 (Ref Range: 2.0-8.3 x10*3/uL) Imm Gran Abs Auto 0.03 (Ref Range: 0.00-0.03 X10*3/uL) 0.08?H (Ref Range: 0.00-0.03 X10*3/uL) 0.02 (Ref Range: 0.00-0.03 X10*3/uL) Lymphocytes Absolute Auto 0.9?L (Ref Range: 1.2-4.9 X10*3/uL) 1.2 (Ref Range: 1.2-4.9 X10*3/uL) 1.7 (Ref Range: 1.2-4.9 X10*3/uL) Monocytes Absolute Auto 1.0 (Ref Range: 0.1-1.2 X10*3/uL) 1.2 (Ref Range: 0.1-1.2 X10*3/uL) 0.7 (Ref Range: 0.1-1.2 X10*3/uL) Eosinophils Absolute Auto 0.4 (Ref Range: 0.0-0.4 X10*3/uL) 0.4 (Ref Range: 0.0-0.4 X10*3/uL) 0.2 (Ref Range: 0.0-0.4 X10*3/uL) Basophils Absolute Auto 0.0 (Ref Range: 0.0-0.2 X10*3/uL) 0.0 (Ref Range: 0.0-0.2 X10*3/uL) 0.0 (Ref Range: 0.0-0.2 X10*3/uL) NRBC Abs Auto 0.000 (Ref Range: 0.0-0.012 X10*3/uL) 0.000 (Ref Range: 0.0-0.012 X10*3/uL) 0.000 (Ref Range: 0.0-0.012 X10*3/uL) ???Lab:Basic Metabolic Panel (Order Date - 03/08/2024) (Collection Date & Time - 03/08/2024 04:44 AM)?ValueReference Range?Shsacv072400-997 - mmol/L?Blood Urea Xeovxdfx10T2-73 - mg/dL?Creatinine0.680.5-1.4 - mg/dL?Glucose Bfenyh14028-129 - mg/dL?Calcium8.68.4-10.2 - mg/dL ?Potassium3.83.3-5.1 - mmol/L?Idopotrt137M19-778 - mmol/L ?Carbon Oqrsmjj2945-13 - mmol/L?Anion Jha8703-34 - ?Estimated Glomerular Filt Rate> 60-?Creatinine Clr Calc Pharmacy 108.1- ???Lab:Lactic Acid-LAB USE ONLY (Order Date - 03/08/2024) (Collection Date & Time - 03/08/2024 01:36 AM)?ValueReference Range?Lactic Acid-LAB USE ONLY1.20.5-2.0 - mmol/L ???Lab:Blood Culture (First) (Order Date - 03/07/2024) (Collection Date & Time - 03/07/2024 07:36 PM)?ValueReference Range?Blood Culture (First)No growth after 5 days.- ???Lab:Troponin-I High Sensitivity (Order Date - 03/07/2024) (Collection Date & Time - 03/07/2024 04:22 PM)?ValueReference Range?Troponin-I High Sensitivity< 2.7<3.5-35.0 - ng/L ???Lab:Hold Lav - Possible Hematology (Order Date - 03/07/2024) (Collection Date & Time - 03/07/2024 10:24 PM)?ValueReference Range?Hold Lav - Possible HematologySEE NOTE- ???Lab:Blood Culture (Second) (Order Date - 03/07/2024) (Collection Date & Time - 03/07/2024 07:49PM)?ValueReference Range?Blood Culture (Second) No growth after 5 days.- ???Lab:B Type Natriuretic Peptide (Order Date - 03/07/2024) (Collection Date & Time - 03/07/2024 04:22 PM)?ValueReference Range?B Type Natriuretic Haxlnmm26<100 - pg/mL ???Lab:Prothrombin Time INR (Order Date - 03/07/2024) (Collection Date & Time - 03/07/2024 04:22 PM)?ValueReference Range?Prothrombin Time12.5H 10.9-12.4 - SEC?INTERNATIONAL NORM RATIO1.10.9-1.1 - ???Lab:Lactic Acid-LAB USE ONLY (Order Date - 03/07/2024) (Collection Date & Time - 03/07/2024 10:24 PM)?ValueReference Range? Lactic Acid-LAB USE ONLY2.2HH0.5-2.0 - mmol/L ???Lab:Demetris Tee (Order Date - 03/07/2024) (Collection Date & Time - 03/07/2024 10:24 PM)?ValueReference Range?Demetris TeeSee Note- ???Lab:Partial Thromboplastin Time (Order Date - 03/07/2024) (Collection Date & Time - 03/07/2024 04:22 PM)?ValueReference Range?Partial Thromboplastin Time30.126.0-36.8 - SEC ???Lab:D Dimer High Sensitivity (Order Date - 03/07/2024) (Collection Date & Time - 03/07/2024 04:22 PM)?ValueReference Range?D Dimer High Fdqnsuenwod620- NG/ML ???Lab:Ethanol (Order Date - 03/07/2024) (Collection Date & Time - 03/07/2024 04:22 PM)?ValueReference Range?Ethanol< 10- mg/dL ???Imaging:CT angio chest PE protocol (Order Date - 03/07/2024) (Performed Date - 03/07/2024) * Lab:Comprehensive Met. Panel * Collection Date 03/07/2024 04/22/2022 01/29/2021 Collection Time 04:22 PM 08:21 AM 10:17 AM Order Date 03/07/2024 04/22/2022 01/29/2021 Sodium 140 (Ref Range: 135-145 mmol/L) 141 (Ref Range: 135-145 mmol/L) 140 (Ref Range: 135-145 mmol/L) Bilirubin Total 0.6 (Ref Range: 0.0-1.0 mg/dL) 0.5 (Ref Range: 0.0-1.0 mg/dL) 0.4 (Ref Range: 0.0-1.0 mg/dL) Aspartate Amino Transferase 26 (Ref Range: 5-37 U/L) 18 (Ref Range: 5-37 U/L) 18 (Ref Range: 5-37 U/L) Alanine Aminotransferase 12 (Ref Range: 0-40 U/L) 14 (Ref Range: 0-40 U/L) 25 (Ref Range: 0-40 U/L) Total Protein 7.5 (Ref Range: 6.5-8.0 g/dL) 6.9 (Ref Range: 6.5-8.0 g/dL) 6.9 (Ref Range: 6.5-8.0 g/dL) Albumin Level 3.9 (Ref Range: 3.5-5.0 g/dL) 4.1 (Ref Range: 3.5-5.0 g/dL) 3.9 (Ref Range: 3.5-5.0 g/dL) Alkaline Phosphatase 155?H (Ref Range: 39-117 U/L) 133?H (Ref Range: 39-117 U/L) 159?H (Ref Range: 39-117 U/L) Potassium 3.9 (Ref Range: 3.3-5.1 mmol/L) 4.5 (Ref Range: 3.3-5.1 mmol/L) 4.8 (Ref Range: 3.3-5.1 mmol/L) Chloride 106 (Ref Range: 96-108 mmol/L) 106 (Ref Range: 96-108 mmol/L) 105 (Ref Range: 96-108 mmol/L) Carbon Dioxide 22 (Ref Range: 22-29 mmol/L) 29 (Ref Range: 22-29 mmol/L) 28 (Ref Range: 22-29 mmol/L) Anion Gap 16 (Ref Range: 12-20) 11?L (Ref Range: 12-20) 12 (Ref Range: 12-20) Blood Urea Nitrogen 30?H (Ref Range: 9-16 mg/dL) 13 (Ref Range: 9-16 mg/dL) 17?H (Ref Range: 9-16 mg/dL) Creatinine 0.74 (Ref Range: 0.5-1.4 mg/dL) 0.84 (Ref Range: 0.5-1.4 mg/dL) 0.86 (Ref Range: 0.5-1.4 mg/dL) Estimated Glomerular Filt Rate > 60 > 60 > 60 Glucose Random 101 (Ref Range: 60-115 mg/dL) 100 (Ref Range: 60-115 mg/dL) 101 (Ref Range: 60-115 mg/dL) Calcium 9.9 (Ref Range: 8.4-10.2 mg/dL) 9.4 (Ref Range: 8.4-10.2 mg/dL) 9.4 (Ref Range: 8.4-10.2 mg/dL) Creatinine Clr Calc Pharmacy 99.3 NR NR ???Lab:Hold Green Gel (Order Date - 03/07/2024) (Collection Date & Time - 03/07/2024 10:24 PM)?ValueReference Range?Hold Green GelSee Note- ???Lab:SARS-CoV2/FLU/RSV (Order Date - 03/07/2024) (Collection Date & Time - 03/07/2024 04:22 PM)?ValueReference Range?Influenza A PCRNEGATIVE Negative -?Influenza B PCRNEGATIVENegative -?Resp Syncy Virus RNA Qual PCRNEGATIVENegative -?SARS COV2 PCR INHOUSENEGATIVENegative - ???Lab:Lactic Acid (Order Date - 03/07/2024) (Collection Date & Time - 03/07/2024 07:36 PM)?ValueReference Range?Lactic Acid4.2HH0.5-2.0 - mmol/L ???Imaging:XR shoulder RT min 2V (Order Date - 03/07/2024) (Performed Date - 03/07/2024) ???Imaging:XR chest 2V (Order Date - 03/07/2024) (Performed Date - 03/07/2024) * Examination: ???General Examination: ?GENERAL APPEARANCE:?pleasant, well nourished, well developed, in no acute distress, calm and relaxed, overweight, elderly man.?HEAD:?atraumatic, normocephalic.?EYES:?eomi, perrla, anicteric, conjugate.?EARS:?normal.?NOSE:?septum intact.?ORAL CAVITY:?normal, unremarkable.?NECK/THYROID:?no jugular venous distention, no carotid bruit, thyroid normal.?LYMPH NODES:?no enlarged lymph nodes,spleen normal.?SKIN:?no suspicious lesions, anicteric.?HEART:?no clicks, gallops, murmurs, or rubs, regular rhythm, S1, S2 normal, no s3, or vascular bruits.?LUNGS:?, diminished breath sounds throughout, rhonchi on the RIGHT, rhonchi on the LEFT, scattered inspiratory wheezes, Pain to palpation of right chest wall.?BREASTS:??no masses palpable bilaterally.?ABDOMEN:?bowel sounds normal, no ascites, no organomegaly, no mass, overweight.?RECTAL EXAM:?not examined.?MUSCULOSKELETAL:?extremities unremarkable, no clubbing, cyanosis or edema, Pain to compression of right chest wall, painter mirror range of motion both knees.?PERIPHERAL PULSES:?normal.?NEUROLOGIC:?alert and oriented, cranial nerves 2-12 grossly intact, deep tendon reflexes 2+ symmetrical, motor strength normal upper and lower extremities, sensory exam intact.?PSYCH:?alert, oriented.? Assessment: * Assessment: 1.?Pulmonary emphysema, unsp ecified emphysema type - J43.9 (Primary)???Notes :His lung disease is stable. He is no longer smoking. He is short of breath with exertion but not during the course of daily life.???2.?Mixed hyperlipidemia - E78.2???Notes :His lipids are currently stable and no change in his regimen as necessary.???3.?COPD (chronic obstructive pulmonary disease) - J44.9???Notes :He had a recent hospitalization for respiratory failure.? He is doing well now with prednisone.? This was continued until he sees his hr specialist.? He is comfortable at rest or with prolonged exertion becomes dyspneic and tachycardic.? He is no longer smoking.???4.?Primary osteoarthritis of both knees - M17.0???Notes :He has had knee surgery. He will continue on current therapy and be monitored carefully.???5.?ASHD (arteriosclerotic heart disease) - I25.10???Notes :He denies any recent angina palpitations or syncope. Current therapy was continued.???6.?Former smoker - Z87.891???Notes :He seems motivated not to smoke. We formulated a plan to prevent relapse in time to stress and illness.???7.?Overweight - E66.3???Notes :He has gained 2 pounds. His body mass index is 29. 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 He had no nodules in his prostate. We discussed modifications to his lifestyle he could make to reduce nocturia.???10.?Compression fracture of L1 vertebra, initial encounter - S32.010A???Notes :He is asymptomatic.? This was an incidental finding on recent CT scan.???11.?Pulmonary neoplasm - D49.1???Notes :He has several abnormal masslike densities in the left lower lobe and destruction of the right third rib.? A needle biopsy of the rib mass has been ordered under CT guidance.??? Plan: * Treatment: 2.?Mixed hyperlipidemia? Continue Incruse Ellipta Aerosol Powder Breath Activated, 62.5 MCG/INH, INHALE 1 PUFF BY MOUTH DAILY, Inhalation;?Continue Breo Ellipta Aerosol Powder Breath Activated, 200-25 MCG/INH, Inhalation;?Continue Albuterol Sulfate HFA Aerosol Solution, 108 (90 Base) MCG/ACT, Inhalation;?Start Pravastatin Sodium Tablet, 80 MG, 1 tablet, Orally, Once a day, 90 days, 90 Tablet, Refills 3; Start predniSONE Tablet, 10 MG, 1 tablet, Orally, Once a day, 30 days, 30, Refills 11.?? 3.?Others? Referral To:[facility]??Orthopedic Surgery ?Reason:Evaluate and Treat * Procedure Codes:?85678 MEASU RE BLOOD OXYGEN LEVEL * Preventive Medicine:? ??Counseling:?Care goal follow-up plan:?Counseling for abnormal BMI given?Yes ?Above Normal BMI Follow-up?Dietary management education, guidance, and counseling, Dietary needs education ?Smoking/Tobacco Use?Patient counseled on the dangers of tobacco use and urged to quit.?03/17/2024 ??COPD Care Plan:?Patient Lifestyle Goals?Reduce number of ED and hospitalizations, Be able to be more active with friends and family.?Treatment Goals?Exercise to help whole body, including lungs, Eat a nutritious diet and increase water consumption to 6-8 glasses a day, Eat 4-5 small meals throughout the day.?Barriers?no barriers.?Self-Managment Goals?Get an air purifier for the rooms you are in the most, Eat a healthy diet, Exercise at least 3xs per week for at least 30 mins.? * Follow Up:?2 Weeks, Sooner t April 04 (Reason: OV, Follow up on health condition) * Images: * Sign off status: Completed true * Provider:?Koby Peña MD Date:?03/06 Generated for Elisabeth andersen/Dina/eTlesliesmitting on:?03/21/2024 10:48 AM EST History and Physical Notes * HPI (History of Present Illness) Category Sub-Category Detail Notes COVID-19 Screening Questions Have you had any new onset fever, chills, cough, congestion, sore throat, shortness of breath, muscle aches?: No Examination Category Sub-Category Detail Notes General Examination GENERAL APPEARANCE: pleasant , well nourished, well developed, in no acute distress, calm and relaxed, overweight, elderly man HEAD: atraumatic, normocep halic EYES: eomi, perrla, anicte lyle, conjugate EARS: normal NOSE: septum intact NECK/THYROID: no jugular venous di stention, no carotid bruit, thyroid normal HEART: no clicks, gallops, murmurs, or rubs, regular rhythm, S1, S2 normal, no s3, or vascular bruits LUNGS: , diminished breath sounds throughout, rhonchi on the RIGHT, rhonchi on the LEFT, scattered inspiratory wheezes, Pain to palpation of right chest wall ABDOMEN: bowel sounds normal, no ascites, no organomegaly, no mass, overweight NEUROLOGIC: alert and oriented, cranial nerves 2-12 grossly intact, deep tendon reflexes 2+ symmetrical, motor strength normal upper and lower extremities, sensory exam intact SKIN: no suspicious lesion s, anicteric PERIPHERAL PULSES: normal BREASTS: no masses palpable b ilaterally MUSCULOSKELETAL: extremities unremark able, no clubbing, cyanosis or edema, Pain to compression of right chest wall, painter mirror range of motion both knees LYMPH NODES: no enlarged lymph no bonny,spleen normal RECTAL EXAM: not examined PSYCH: alert, oriented ORAL CAVITY: normal, unremarkable Consultation Request Notes Referral Date Referring Provider Referred Provider Not you 03/17/2024 Koby Peña [facility], Orthopedic Surgeons Evaluate and Treat
== END 2024-03-21 10:58 | disposition home or self-care (01) ==
PROVIDERS: PCP Internal Medicine Medical Oncology; Visit Provider Surgery
DX: M89.9 Disorder of bone, unspecified (principal); R91.8 Other nonspecific abnormal finding of lung field
CPT/HCPCS: 99214

== ENCOUNTER → 2024-03-21 10:43 | Outpatient (BNVA) | payer MEDICARE, SELFPAY | PROVIDERS: PCP Internal Medicine Medical Oncology; Visit Provider Surgery | DX: R91.8 Other nonspecific abnormal finding of lung field (principal); R22.2 Localized swelling, mass and lump, trunk; M89.9 Disorder of bone, unspecified | CPT/HCPCS: 99212 ==

== ENCOUNTER 2024-04-04 12:39 | Outpatient (AMB) | payer MEDICARE, SELFPAY ==
--- OUTSIDE RECORDS SUMMARY | 2024-04-04 12:41 | XMS_ITS | Patient Health Record ---
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 Name Role Phone Koby Peña MD Primary Care Provider UnavailMelquiades Vargas Unavailable [phone] Allergies Allergen (clinical drug ingredient) Drug/Non Drug [...] Start Date Coverage End Date Medicare [facility] [address] [place] [address] [id number] Jaren Up Self - patient is the insured [employer] [address] [place] [address] [id number] Jaren Up Self - patient is the insured Medical (General) History Medical History History ICD Code Broken bones Heart disease Lung disease Measles Joint implants/screws Surgical History Surgery Date(Month/Year) back fusion 2016 left hip replacement 2017 right hip 2018 testicular tumor removal 1971 hernia? 1960
--- OUTSIDE RECORDS SUMMARY | 2024-04-04 12:41 | XMS_ITS | Patient Health Record ---
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, [address] [place] [phone] Notes/Report: White Blood Count 8.8 4.8-10.8 X10*3/uL [...] NRBC Abs Auto 0.000 0.0-0.012 X10*3/uL Comprehensive [place]. Panel Fa st Reviewed date:08/09/2023 01:08:24 PM Interpretation: Performing Lab:[facility], [address] [place] [phone] Notes/Report: Sodium 141 135-145 mmol/L Potassium 4.3 3.3-5.1 mmol/L Chloride 105 96-108 mmol/L Carbon Dioxide 27 22-29 mmol/L Anion Gap 13 12-20 Blood Urea Nitrogen 16 9-16 mg/dL Creatinine 0.78 0.5-1.4 mg/dL Estimated Glomerular Filt Rate > 60 NOTE: For -Montserratian individuals, multiply the result by 1.210. Chronic [...] Ferritin Reviewed date:08/09/2023 01:08:24 PM Interpretation: Performing Lab:[facility], [address] [place] [phone] Notes/Report: Ferritin 86 20-250 ng/mL Lipid Panel Reviewed date:08/09/2023 01:08:24 PM Interpretation: Performing Lab:[facility], [address] [place] [phone] Notes/Report: Triglycerides 160 <150 mg/dL Desirable Triglyceride: [...] patients with liver disease. Alkaline Phosphatase Isoenzy me Reviewed date:09/14/2023 04:19:47 AM Interpretation: Performing Lab:[facility], [address] [place] [phone] Notes/Report: Alk.Phos Isoenzymes Total 130 35-144 U/L Alk.Phos Isoenzymes Intest 9 1-24 % Alk.Phos Isoenzymes Bone 34 28-66 % Alk.Phos Isoenzymes Liver 57 25-69 % Alk.Phos Isoenzymes Placental 0 <=0 % Alk.Phos Iso. Macrohepatic 0 <=0 % THIS TEST WAS PERFORMED AT: [facility] [id number] [place] [phone] MARYSOL SOLANO MD,PHD Alk.Phos Isoenzymes Interp TNP Complete Blood Count Auto Di ff Reviewed date:11/27/2023 03:44:00 PM Interpretation: Performing Lab:[facility], [address] [place] [phone] Notes/Report: White Blood Count 8.0 4.8-10.8 X10*3/uL [...] NRBC Abs Auto 0.000 0.0-0.012 X10*3/uL Comprehensive [place]. Panel Fa st Reviewed date:11/27/2023 03:44:00 PM Interpretation: Performing Lab:[facility], [address] [place] [phone] Notes/Report: Sodium 144 135-145 mmol/L Potassium 4.3 3.3-5.1 mmol/L Chloride 107 96-108 mmol/L Carbon Dioxide 29 22-29 mmol/L Anion Gap 12 12-20 Blood Urea Nitrogen 16 9-16 mg/dL Creatinine 0.81 0.5-1.4 mg/dL Estimated Glomerular Filt Rate > 60 NOTE: For -Montserratian individuals, multiply the result by 1.210. Chronic [...] Panel Reviewed date:11/27/2023 03:44:00 PM Interpretation: Performing Lab:[facility], [address] [place] [phone] Notes/Report: Triglycerides 159 <150 mg/dL Desirable Triglyceride: [...] Antigen Reviewed date:11/27/2023 03:44:00 PM Interpretation: Performing Lab:[facility], [address] [place] [phone] Notes/Report: Prostate Specific Antigen 1.46 <0.05-4.0 ng/mL PSA methodology: [employer] Alinity i Chemiluminescent Microparticle Immunoassay (CMIA) Complete Blood Count Auto Di ff Reviewed date:03/14/2024 05:01:23 AM Interpretation: Performing Lab:[facility], [address] [place] [phone] Notes/Report: White Blood Count 12.4 4.8-10.8 X10*3/uL [...] gy Reviewed date:03/14/2024 05:01:23 AM Interpretation: Performing Lab:[facility], [address] [place] [phone] Notes/Report: Hold Lav - Possible Hematology SEE NOTE Specimen will be held untested for 8 hours. Call Hematology if testing is desired. Prothrombin Time INR Reviewed date:03/14/2024 05:01:23 AM Interpretation: Performing Lab:[address] [phone] Notes/Report: Prothrombin Time 12.5 10.9-12.4 SEC INTERNATIONAL [...] Time Reviewed date:03/14/2024 05:01:23 AM Interpretation: Performing Lab:[address] [phone] Notes/Report: Partial Thromboplastin Time 30.1 26.0-36.8 SEC For information regarding the monitoring of direct thrombin inhibitors, please refer to Pharmacy. Comprehensive Met. Panel Reviewed date:03/14/2024 05:01:23 AM Interpretation: Performing Lab:[address] [phone] Notes/Report: Sodium 140 135-145 mmol/L Potassium 3.9 [...] Acid Reviewed date:03/14/2024 05:01:23 AM Interpretation: Performing Lab:[facility], [address] [place] [phone] Notes/Report: Lactic Acid 4.2 0.5-2.0 mmol/L Critical value for test LATIC: Results called to and read back by: DAVIE Person calling: ROXANNE Date:03/07/2024 Time: 2010 Troponin-I High Sensitivity Reviewed date:03/14/2024 05:01:23 AM Interpretation: Performing Lab:[facility], [address] [place] [phone] Notes/Report: Troponin-I High Sensitivity < 2.7 <3.5-35.0 ng/L The Davila high sensitivity Troponin-I results should be used in conjunction with other diagnostic information such as ECG, clinical observations and information, and patient symptoms to aid in the diagnosis of UT. B Type Natriuretic Peptide Reviewed date:03/14/2024 05:01:23 AM Interpretation: Performing Lab:[facility], [address] [place] [phone] Notes/Report: B Type Natriuretic Peptide 10 <100 pg/mL For those patients who are being treated with Natrecor (nesiritide, recombinant BNP), BNP testing should be performed at least two hours post treatment in order to ensure that only endogenous levels of BNP are detected. Demetris Tee Reviewed date:03/14/2024 05:01:23 AM Interpretation: Performing Lab:[facility], [address] [place] [phone] Notes/Report: Demetris Tee See Note Specimen held untested for 24 hours; Call to request Chemistry testing. Ethanol Reviewed date:03/14/2024 05:01:23 AM Interpretation: Performing Lab:[facility], [address] [place] [phone] Notes/Report: Ethanol < 10 Serum/plasma ethanol results are to be used for medical/treatment purposes only. SARS-CoV2/FLU/RSV Reviewed date:03/14/2024 05:01:24 AM Interpretation: Performing Lab:[facility], [address] [place] [phone] Notes/Report: Influenza A PCR NEGATIVE Negative Influenza [...] by authorized laboratories. Testing performed on the [employer] GeneXpert utilizing real-time RT-PCR. All SARS CoV2 and positive influenza A/B results are reported to [facility]. Blood Culture (First) Reviewed date:03/14/2024 05:01:23 AM Interpretation: Performing Lab:[address] [phone] Notes/Report: Blood Culture (First) No growth after 5 days. Blood Culture (Second) Reviewed date:03/14/2024 05:01:23 AM Interpretation: Performing Lab:[address] [address] Notes/Report: Blood Culture (Second) No growth after 5 days. Lactic Acid-LAB USE ONLY Reviewed date:03/14/2024 05:01:24 AM Interpretation: Performing Lab:[address] [phone] Notes/Report: Lactic Acid-LAB USE ONLY 2.2 0.5-2.0 mmol/L Critical value for test(s): LACTA Results called to and read back by: NAVEED Person calling: CORETTA Date: 03/07/24 Time: 2249 D Dimer High Sensitivity Reviewed date:03/14/2024 05:01:24 AM Interpretation: Performing Lab:[facility], [address] [place] [phone] Notes/Report: D Dimer High Sensitivity 823 D-DIMER [...] Gel Reviewed date:03/14/2024 05:01:24 AM Interpretation: Performing Lab:[facility], [address] [place] [phone] Notes/Report: Hold Green Gel See Note Specimen held untested for 24 hours; Call to request Chemistry testing. CT angio chest PE protocol Reviewed date:03/14/2024 05:01:24 AM Interpretation: Performing Lab: Notes/Report: [address] [address] [address] Scan Report Signed Patient: Jaren Up MR#: [id number] 287 : 1945 Acct:[id number] Age/Sex: 79 / M ADM Date: 03/07/24 Loc: [place] [address]: Subhash Welch MD Ordering Physician: Jeffrey Ellsworth MD Date of Service: 03/07/24 Procedure(s): CT angio chest PE protocol Accession Number(s): [id number] cc: Koby Peña MD; Jeffrey Ellsworth MD [...] by: Clarence Block MD 03/07/2024 11:20 PM [facility] Dictated By: Clarence Block MD Signed By: <Electronically signed by Clarence Block MD in OV> 03/07/24 5250 DD/ 1849 TD/TT: 03/07/241919 [employer]: [address] [address] [address] Scan Report Signed Patient: Kane Up MR#: [id number] 287 : 1945 Acct:[id number] Age/Sex: 79 / M ADM Date: 03/07/24 Loc: [place] [address]: Niki Welch MD Ordering Physician: Jeffrey Ellsworth MD Date of Service: 03/07/24 Procedure(s): CT ang io chest PE protocol Accession Number(s): [id number] cc: Koby Peña MD; Jeffrey Ellsworth MD [...] by: Clarence Block MD 03/07/2024 11:20 PM [facility] Dictated By: Clarence Block MD Signed By: <Electronically signed by Clarence Block MD in OV> 03/07/240 DD/ 1849 TD/TT: 03/07/24 1920 [employer]: XR chest 2V Reviewed date:03/14/2024 05:01:24 AM Interpretation: Performing Lab: Notes/Report: [address] [address] XRay Report Signed Patient: Jaren Up MR#: [id number] 287 : 1945 Acct:[id number] Age/Sex: 79 / M ADM Date: 03/07/24 Loc: HO.ED Attending Dr: Ordering Physician: Generic ED Physician Date of Service: 03/07/24 Procedure(s): XR chest 2V Accession Number(s): [id number] cc: Koby Peña MD; Generic ED Physician [...] 03/07/24 1648 DD/ 1545 TD/TT: 03/07/24 1550 [employer]: [place] [address] XRay Report Signed Patient: Kane Up MR#: [id number] 287 : 1945 Acct:[id number] Age/Sex: 79 / M ADM Date: 03/07/24 Loc: .ED Attending Dr: Ordering Physician: Generic ED Physician Date of Service: 03/07/24 Procedure(s): XR joan st 2V Accession Number(s): [id number] cc: Koby Peña MD; Generic ED Physician [...] 03/07/24 1648 DD/ 1545 TD/TT: 03/07/24 1550 [employer]: COREY XR shoulder RT min 2V Reviewed date:03/14/2024 05:01:24 AM Interpretation: Performing Lab: Notes/Report: [address] [address] XRay Report Signed Patient: Jaren Up MR#: [id number] 287 : 1945 Acct:[id number] Age/Sex: 79 / M ADM Date: 03/07/24 Loc: HO.ED Attending Dr: Ordering Physician: Generic ED Physician Date of Service: 03/07/24 Procedure(s): XR shoulder RT min 2V Accession Number(s): [id number] cc: Koby Peña MD; Generic ED Physician [...] 03/07/24 1737 DD/ 1640 TD/TT: 03/07/24 1648 [employer]: DANYA [address] [address] XRay Report Signed Patient: Kane Up MR#: [id number] 287 : 1945 Acct:[id number] Age/Sex: 79 / M ADM Date: 03/07/24 Loc: HO.ED Attending Dr: Ordering Physician: Generic ED Physician Date of Service: 03/07/24 Procedure(s): XR shoulder RT min 2V Accession Number(s): [id number] cc: Koby Peña MD; Generic ED Physician [...] 03/07/24 1737 DD/ 1640 TD/TT: 03/07/24 1648 [employer]: DANYA Complete Blood Count Auto Di ff Reviewed date:03/14/2024 05:01:23 AM Interpretation: Performing Lab:[facility], [address] [place] [phone] Notes/Report: White Blood Count 9.4 4.8-10.8 X10*3/uL [...] Panel Reviewed date:03/14/2024 05:01:23 AM Interpretation: Performing Lab:[address] [address] Notes/Report: Sodium 142 135-145 mmol/L Potassium 3.8 [...] ONLY Reviewed date:03/14/2024 05:01:23 AM Interpretation: Performing Lab:[address] [address] Notes/Report: Lactic Acid-LAB USE ONLY 1.2 0.5-2.0 mmol/L PSA,Total (Free>4and<10) Reviewed date:03/14/2024 05:01:23 AM Interpretation: Performing Lab:[facility], [address], [place] [address] Notes/Report: PSA,Total (Free>4and<10) 2.51 0.00-4.00 ng/mL A [...] between 4.0 and 10.0 ng/mL. PSA methodology: [employer] Alinity i Chemiluminescent Microparticle Immunoassay (CMIA) Reason For Referral Reason Evaluate and Treat Diagnosis 1 Right shoulder pain (M25.511) Referral Organization Koby Peña III, MD Referring Provider First Name Koby Referring Provider Last Name Casey Referring Provider Speciality Internal M edicine Referred Provider [facility] Referred Provider Specialty Orthopedic [facility] General Notes Colleen Kearney 03/21/2024 03:51:49 PM > Faxed referral and progress note. Referral Priority Routine Medications Medication SIG (Take, Route, Frequency, Duration) Notes Start Date End Date Status Pravastatin Sodium 80 MG 1 tablet Orally Once a day 03/17/2024 Active Albuterol Sulfate HFA 108 (90 Base) MCG/ACT Inhalation Active Breo Ellipta 200-25 MCG/INH Inhalation Active predniSONE 10 MG 1 tablet Orally Once a day 03/17/2024 Active Incruse Ellipta 62.5 MCG/INH INHALE 1 PUFF BY MOUTH DAILY Inhalation Active Immunizations Vaccine Route Administration Date [...] Problem Status W/U Status Risk Notes Problem 8722172 Former smoker (Z87.891) Active confirmed He seems motivated not to smoke. We formulated a plan to prevent relapse in time to stress and illness. Problem 338468663 Overweight (E66.3) Active confirmed He has gained 2 pounds. His body mass index is 29. We made a plan to lose weight at a rate of one half of a pound per week Problem 62216506 Allergy to sulfa drugs (Z88.2) Active confirmed Problem 614258560 Mixed hyperlipidemia (E78.2) Active confirmed His lipids are currently stable and no change in his regimen as necessary. Problem 518015246 Low back pain (M54.5) Active confirmed He has had surgery on his lumbar spine for degenerative disc disease and impingement of the left L5 nerve root at the foramen. Problem COPD - Chronic obstructive pulmonary disease (14134836) COPD (chronic obstructive pulmonary disease) (J44.9) Active confirmed He had a re cent hospitalization for respiratory failure. He is doing well now with prednisone. This was continued until he sees his allergy and immunology specialist. He is comfortable at rest or with prolonged exertion becomes dyspneic and tachycardic. He is no longer smoking. 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 He has recovered from that. Problem 180400837 History of iron deficiency anemia (Z86.2) Active confirmed His iron deficiency anemia has resolved. He has not noticed any bleeding. He is compliant with his treatment. His ferritin is 86. Problem 119002662 Primary osteoarthritis of both knees (M17.0) Active confirmed He has had knee surgery. He will continue on current therapy and be monitored carefully. Problem 95467519 Pulmonary emphysema, unspecified emphysema type (J43.9) Active confirmed His lung diseas e is stable. He is no longer smoking. He is short of breath with exertion but not during the course of daily life. 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 He has mild pain in this area. A plan has been made to do a fine-needle aspiration biopsy of a left lung mass. He wiill then need a PET CT scan decisions will be made about the indicated treatment. We discussed today that this is likely a pulmonary neoplasm. His PSA is normal. Problem 0017466149809 Benign prostatic hyperplasia with lower urinary tract symptoms (N40.1) Active confirmed He rises from sleep once and sometimes twice a night. He had no nodules in his prostate. We discussed modifications to his lifestyle he could make to reduce nocturia. 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 A needle biopsy of the rib mass has been ordered under CT guidance. Problem 29706921 ASHD (arterioscleroti c heart disease) (I25.10) Active confirmed He denies any recent angina palpitations or syncope. Current therapy was continued. 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 Problem 187820690 Compression fracture of L1 vertebra, initial encounter (S32.010A) Active confirmed He is asymptomatic. This was an incidental finding on recent CT scan. Vital Signs Heart Rate 82 /min 03/31/2024 Temperature 97.9 degrees Fahrenheit 03/31/2024 Oximetry 100 % 03/31/2024 Blood pressure diastolic 84 mm Hg 03/31/2024 Height 72 in 03/31/2024 Blood pressure systolic 121 mm Hg 03/31/2024 Weight 208 lbs 03/31/2024 BMI 28.21 kg/m2 03/31/2024 Encounters Encounter Location Date Provider Diagnosis Koby Peña III, MD [address] [place] [address] [place] [address] 05/13/2023 Koby Peña Mixed hyperlipidemia E78.2 ; Overweight E66.3 ; Alkaline phosphatase raised R74.8 ; COPD (chronic obstructive pulmonary disease) J44.9 ; Pulmonary emphysema, unspecified emphysema type J43.9 ; ASHD (arteriosclerotic heart disease) I25.10 and Primary osteoarthritis of both knees M17.0 Koby Peña III, MD [address] [place] [address] [place] [address] 08/11/2023 Koby Peña Mixed hyperlipidemia E78.2 ; Benign prostatic hyperplasia with lower urinary tract symptoms N40.1 ; Overweight E66.3 ; COPD (chronic obstructive pulmonary disease) J44.9 ; Pulmonary emphysema, unspecified emphysema type J43.9 ; ASHD (arteriosclerotic heart disease) I25.10 ; History of iron deficiency anemia Z86.2 and Primary osteoarthritis of both knees M17.0 Koby Peña III, MD [address] [place] [address] [place] [address] 12/03/2023 Koby Peña Mixed hyperlipidemia E78.2 ; Benign prostatic hyperplasia with lower urinary tract symptoms N40.1 ; COPD (chronic obstructive pulmonary disease) J44.9 ; Pulmonary emphysema, unspecified emphysema type J43.9 ; ASHD (arteriosclerotic heart disease) I25.10 ; Primary osteoarthritis of both knees M17.0 ; Overweight E66.3 and Former smoker Z87.891 Koby Peña III, MD [address] [place] [address] [place] [address] 03/17/2024 Koby Peña Mixed hyperlipidemia E78.2 ; [...] Pulmonary neoplasm D49.1 Koby Peña III, MD [address] [place] [address] [place] [address] 03/31/2024 Koby Peña Mixed hyperlipidemia E78.2 ; Pulmonary emphysema, unspecified emphysema type J43.9 ; Rib lesion M89.9 ; COPD (chronic obstructive pulmonary disease) J44.9 ; Primary osteoarthritis of both knees M17.0 ; ASHD (arteriosclerotic heart disease) I25.10 ; Former smoker Z87.891 ; Benign prostatic hyperplasia with lower urinary tract symptoms N40.1 and Overweight E66.3 oKby Peña III, MD [address] [place] [address] [place] [address] 03/14/2024 Koby Peña III, MD [address] [place] [address] [place] [address] 03/15/2024 Koby Peña III, MD [address] [place] [address] [place] [address] 03/22/2024 Koby Peña Assessments Encounter Date Diagnosis (ICD Code) Assessment Notes Treat ment Notes Treatment Clinical Notes 05/13/2023 Overweight (ICD-10 - E66.3) His body [...] not during the course of daily life. 03/31/2024 Mixed hyperlipidemia (ICD-10 - E78.2) His lipids are currently stable and no change in his regimen as necessary. 03/31/2024 Pulmonary emphysema, unspecified emphysema type (ICD-10 - [...] This was continued until he sees his allergy and immunology specialist. He is comfortable at rest or with prolonged exertion becomes dyspneic and tachycardic. He is no longer smoking. 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 He has mild pain in this area. A plan has been made to do a fine-needle aspiration biopsy of a left lung mass. He wiill then need a PET CT scan decisions will be made about the indicated treatment. We discussed today that this is likely a pulmonary neoplasm. His PSA is normal. 05/13/2023 COPD (chronic obstructive pulmonary disease) (ICD-10 [...] on current therapy and be monitored carefully. 03/31/2024 COPD (chronic obstructive pulmonary disease) (ICD-10 - J44.9) He had a recent hospitalization for respiratory failure. He is doing well now with prednisone. This was continued until he sees his allergy and immunology specialist. He is comfortable at rest or with prolonged exertion becomes dyspneic and tachycardic. He is no longer smoking. 05/13/2023 Pulmonary emphysema, unspecified emphysema type (ICD-10 [...] palpitations or syncope. Current therapy was continued. 03/31/2024 Primary osteoarthritis of both knees (ICD-10 - M17.0) He has had knee surgery. He will continue on current therapy and be monitored carefully. 05/13/2023 ASHD (arteriosclerotic heart disease) (ICD-10 - [...] relapse in time to stress and illness. 03/31/2024 ASHD (arteriosclerotic heart disease) (ICD-10 - I25.10) He denies any recent angina palpitations or syncope. Current therapy was continued. 05/13/2023 Primary osteoarthritis of both knees (ICD-10 [...] one half of a pound per week 03/31/2024 Former smoker (ICD-10 - Z87.891) He seems motivated not to smoke. We formulated a plan to prevent relapse in time to stress and illness. 08/11/2023 Primary osteoarthritis of both knees (ICD-10 [...] in recent months and is approaching normal. 03/31/2024 Benign prostatic hyperplasia with lower urinary tract symptoms (ICD-10 - N40.1) He rises from sleep once and sometimes twice a night. He had no nodules in his prostate. We discussed modifications to his lifestyle he could make to reduce nocturia. 03/17/2024 Benign prostatic hyperplasia with lower urinary tract symptoms (ICD-10 - N40.1) He rises from sleep once and sometimes twice a night. He had no nodules in his prostate. We discussed modifications to his lifestyle he could make to reduce nocturia. 03/31/2024 Overweight (ICD-10 - E66.3) He has gained 2 pounds. His body mass index is 29. We made a plan to lose weight at a rate of one half of a pound per week 03/17/2024 Compression fracture of L1 vertebra, initial [...] Isoenzyme Next Appt Details Provider Name:Koby Peña, 12/02/2024 10:00:00 AM, [address] [place] [address] [address], [place], [address], Insurance Providers Payer Name Payer Address Payer Phone Subscriber Number Group Number Insured Name Patient Relationship to Insured Coverage Start Date Coverage End Date MEDICARE NGS [address] [place] [address] [id number] Jaren Up Self - patient is the insured [facility] [address] [place], [place] [id number] Jaren Up Self - patient is [...] anemia 2019 Former smoker Positive PPD 1974 2010 for meniscus left knee, resected Gastritis 2019 BPH Chronically elevated alkaline phosphatas e Chronic low back pain, anter olisthesis and left L5 foraminal narrowing by MRI 2016 Neoplastic destruction right third rib Surgical History Surgery Date(Month/Year) No history Upper endoscopy and [place] [facility] deficiency anemia 04/2018 lumbar spine fusion, [facility] 2016 Partial left medial meniscec geovani and debridement, Dr. Armand Milner, [facility] 03/2010 Incomplete colonoscopy, [facility], Dr. Mo, severe sigmoid diverticulosis 01/2010 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 De León 03/2009 Bronchoscopy for interstitial pneumonia, [facility] 07/2007 bilateral knee replacements fracture right arm age 18 1963 Hospitalization History Reason Date(Month/Year) No history Hospitalized for five days d ue to respiratory distress and shoulder injury.
--- OUTSIDE RECORDS SUMMARY | 2024-04-04 12:41 | XMS_ITS ---
Author Organization Koby Peña III, MD Address [address] [place] [address] Care Team Providers Care Assistant Professor Of Theater Name Role Phone Koby Peña Primary Care Provider [phone] REASON FOR VISIT Message Social History Sex Assigned At : Social History Observation Description Sex Assigned At Male Encounters Encounter Location Date Provider Diagnosis Koby Peña III, MD [address] [place] [address] [address] [facility] [address] 03/22/2024 Koby Peña Plan Of Treatment Next Appt Details Provider Name:Koby Peña, 12/02/2024 10:00:00 AM, [address] [facility] [address], [place], [address], Progress Notes * Jaren CANELA EDOB:[birth year] (79 yo M)Acc No.[id number]:03/22/2024 Patient:?Jaren CANELA :1945???Age:79 Y???Sex:Male Address:[place] [address] * true * Date:? Generated for Printi ng/Faxing/eTransmitting on:?04/04/2024 12:41 PM EST
--- OUTSIDE RECORDS SUMMARY | 2024-04-04 12:41 | XMS_ITS ---
Author Organization Koby Peña III, MD Address [address] [place] [address] Care Team Providers Care Azure Developer Name Role Phone Koby Peña Primary Care Provider Allergies Allergen (clinical drug ingredient) Drug/Non Drug Allergy documented on EMR Reaction Allergy Type Onset Date Status Penicillin Unknown Drug Allergy Active Substance with sulfonamide structure and antibacterial mechanism of action (substance) Sulfa Antibiotics Unknown Drug Allergy Active REASON FOR VISIT Distractive lesion right third rib, COPD, Emphysema, Hyperlipidemia, Arthritis both knees, atherosclerotic heart disease, Benign prostatic hyperplasia, L1 compression fracture Medications Medication SIG (Take, Route, Frequency, Duration) Notes Start Date End Date Status Breo Ellipta 200-25 MCG/INH Inhalation Active Albuterol Sulfate HFA 108 (90 Base) MCG/ACT Inhalation Active Pravastatin Sodium 80 MG take 1 tablet b y mouth every day Active Incruse Ellipta 62.5 MCG/INH INHALE 1 PUFF BY MOUTH DAILY Inhalation Active Pravastatin Sodium 80 MG 1 tablet Orally Once a day 03/17/2024 Active predniSONE 10 MG 1 tablet Orally Once a day 03/17/2024 Active Social History Tobacco Use: Social History [...] Problem Status W/U Status Risk Notes Problem [id number] Rib lesion (M89.9) Active confirmed A CT [...] a pulmonary neoplasm. His PSA is normal. Vital Signs Temperature 97.9 degrees Fahrenheit 03/31/20 24 Blood pressure systolic 121 mm Hg 03/31/20 Blood pressure diastolic 84 mm Hg 024 Heart Rate 82 /min 03/31/2024 Height 72 in 03/31/2024 Weight 208 lbs 03/31/2024 BMI 28.21 kg/m2 03/31/2024 Oximetry 100 % 03/31/2024 Encounters Encounter Location Date Provider Diagnosis Koby Peña III, MD [address] [place] [address] [place] [address] 03/31/2024 Koby Peña Mixed hyperlipidemia E78.2 ; Pulmonary emphysema, unspecified emphysema type J43.9 ; Rib lesion M89.9 ; COPD (chronic obstructive pulmonary disease) J44.9 ; Primary osteoarthritis of both knees M17.0 ; ASHD (arteriosclerotic heart disease) I25.10 ; Former smoker Z87.891 ; Benign prostatic hyperplasia with lower urinary tract symptoms N40.1 and Overweight E66.3 Assessments Encounter Date Diagnosis (ICD Code) Assessment Notes Treat ment Notes Treatment Clinical Notes 03/31/2024 Mixed hyperlipidemia (ICD-10 - E78.2) His lipids are currently stable and no change in his regimen as necessary. 03/31/2024 Pulmonary emphysema, unspecified emphysema type (ICD-10 - J43.9) His lung disease is stable. He is no longer smoking. He is short of breath with exertion but not during the course of daily life. 03/31/2024 Rib lesion (ICD-10 - M89.9) A [...] a pulmonary neoplasm. His PSA is normal. 03/31/2024 COPD (chronic obstructive pulmonary disease) (ICD-10 - J44.9) He had a recent hospitalization for respiratory failure. He is doing well now with prednisone. This was continued until he sees his intensive care specialist. He is comfortable at rest or with prolonged exertion becomes dyspneic and tachycardic. He is no longer smoking. 03/31/2024 Primary osteoarthritis of both knees (ICD-10 - M17.0) He has had knee surgery. He will continue on current therapy and be monitored carefully. 03/31/2024 ASHD (arteriosclerotic heart disease) (ICD-10 - I25.10) He denies any recent angina palpitations or syncope. Current therapy was continued. 03/31/2024 Former smoker (ICD-10 - Z87.891) He seems motivated not to smoke. We formulated a plan to prevent relapse in time to stress and illness. 03/31/2024 Benign prostatic hyperplasia with lower urinary [...] one half of a pound per week Plan Of Treatment Medication Medication Name Sig Start Date Stop Date Notes Breo Ellipta 200-25 MCG/INH Inhalation Albuterol Sulfate HFA 108 (9 0 Base) MCG/ACT Inhalation Pravastatin Sodium 80 MG take 1 tablet b y mouth every day Incruse Ellipta 62.5 MCG/INH INHALE 1 PU FF BY MOUTH DAILY Inhalation Pravastatin Sodium 80 MG 1 tablet Orally Once a day 2023 predniSONE 10 MG 1 tablet Orally Once a day 03/17/2024 Next Appt Details Follow Up: after biopsy Dr Jan martin is doing, After the biopsy, Reason: OV after biopsy done by Dr Alvarado, To discuss the biopsy results and develop a treatment plan Provider Name:Koby Peña, 12/02/2024 10:00:00 AM, [address] [place] [address] [address], [place], [address], Progress Notes * Jaren CANELA EDOB:[birth year] (79 yo M)Acc No.[id number]:03/31/2024 Progress Notes Patient:?Jaren CANELA Provider:?Koby Peña MD :1945???Age:79 Y???Sex:Male Rey e:03/31/2024 Address:[facility][note 3] [address] [facility] Subjective: * Chief Complaints: * ???Distractive lesion right third ribCOPDEmphysemaHyperlipidemiaArthritis both kneesAtherosclerotic heart diseaseBenign prostatic hyperplasiaL1 compression fracture * HPI: ???COVID-19 Screening:?Questions?Have you had any new onset fever, chills, cough, congestion, sore throat, shortness of breath, muscle aches??No ???:? The patient, a 79-year-old male, presented with discomfort in his right shoulder and rib area. He reported that the shoulder pain has been improving and he can now move it without pain, except for at night. He also mentioned a fall he had while rushing into his house, which resulted in pain on his right side, particularly in his rib area. The patient also mentioned that he had a PET scan recently at [facility] for an unidentified issue. 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 There were also a few lymph nodes present. The patient has a history of smoking. * ROS:?General/Constitutional:?Admits?pain,?Right chest wall at third rib anteriorly.?Chills?denies.?Fatigue?admits.?Fever?denies.?ENT:?Decreased hearing?mild.?Respiratory:?Cough?non-productive.?Cardiovascular:?Chest pain with exertion?denies.?Dyspnea on exertion?denies.?Shortness of breath?with exertion.?Gastrointestinal:?Constipation?occasional.?Decreased appetite?denies.?Diarrhea?denies.?Heartburn?denies.?Nausea?denies.?Rectal bleeding?denies.?Vomiting?denies.?Hematology:?bruising?denies.?petechiae?denies.?Swollen glands?none have been noted.?Genitourinary:?Frequent urination?once a night.?Musculoskeletal:?Muscle aches?denies.?Painful joints?denies.?Sciatica?denies.?Weakness?denies.?Skin:?Itching?denies.?Rash?denies.?Skin lesion(s)?denies.?Neurologic:?Difficulty speaking?denies.?Dizziness?denies.?Headache?denies.?Low back pain?denies.?Psychiatric:?Depressed mood?which is mild.? * Medical History:? * Surgical History:?fracture r ight arm age 18 1964bilateral knee replacements Bronchoscopy for interstitial pneumonia, [facility] 07/2007Direct laryngoscopy with biopsy of paralyzed left vocal cord, Dr. De León 03/2009Incomplete colonoscopy, [facility], Dr. Mo, severe sigmoid diverticulosis 01/2010Partial left medial meniscectomy and debridement, Dr. Armand Milner, [facility] 03/2010lumbar spine fusion, [facility] 2016Upper endoscopy and colonoscopy, Dr. Montague, [facility], for iron deficiency anemia 04/2018No history * Hospitalization/Major Diagno stic Procedure:?Hospitalized for five days due to respiratory distress and shoulder injury. No history * Family History:?Father: dece ased 59 yrs.?Mother: [...] Tobacco Non-User?Ex-cigarette smoker ???He was born in [facility]. 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 He has had no toxic exposures. He has no mormonism objections to blood transfusion. He lives in [place] with his sister. * Medications:?TakingIncruse E llipta 62.5 MCG/INH Aerosol Powder Breath Activated INHALE 1 PUFF BY MOUTH DAILY Inhalation Breo Ellipta 200-25 MCG/INH Aerosol Powder Breath Activated Inhalation Albuterol Sulfate HFA 108 (90 Base) MCG/ACT Aerosol Solution Inhalation Pravastatin Sodium 80 MG Tablet 1 tablet Orally Once a day predniSONE 10 MG Tablet 1 tablet Orally Once a day , stop date 03/12/2025Taking Incruse Ellipta 62.5 MCG/INH Aerosol Powder Breath Activated INHALE 1 PUFF BY MOUTH DAILY Inhalation Taking Breo Ellipta 200-25 MCG/INH Aerosol Powder Breath Activated Inhalation Taking Albuterol Sulfate HFA 108 (90 Base) MCG/ACT Aerosol Solution Inhalation Taking Pravastatin Sodium 80 MG Tablet 1 tablet Orally Once a day Taking predniSONE 10 MG Tablet 1 tablet Orally Once a day , stop date 03/12/2025DiscontinuedPravastatin Sodium 80 MG Tablet take 1 tablet by mouth every day Medication List reviewed and reconciled with the patientDiscontinued Pravastatin Sodium 80 MG Tablet take 1 tablet by mouth every day Medication List reviewed and reconciled with the patient * Allergies:?Penicillin: Aller gySulfa Antibiotics: Allergyno[Allergies Verified] Objective: * Vitals:?Ht: 72, Wt:208, BMI: 28.21, BP:121/84, HR:82, Temp:97.9, Oxygen sat %:100, Wt-k.35. * ???Past Orders: ???Lab:PSA,Total (Free>4and< 10) (Order [...] Date & Time - 03/08/2024 04:44 AM)?ValueReference Range?Nyffaq911631-887 - mmol/L?Blood Urea Bcskygde95Q0-58 - mg/dL?Creatinine0.680.5-1.4 - mg/dL?Glucose Czfpbw36710-530 - mg/dL?Calcium8.68.4-10.2 - mg/dL ?Potassium3.83.3-5.1 - mmol/L?Lmmqcead718C14-556 - mmol/L ?Carbon Lumnmxn6099-43 - mmol/L?Anion Ztq5745-38 - ?Estimated Glomerular Filt Rate> 60-?Creatinine Clr [...] - 03/07/2024 04:22 PM)?ValueReference Range?B Type Natriuretic Fypqnpu45<100 - pg/mL ???Lab:Prothrombin Time INR (Order Date - 03/07/2024) (Collection Date & Time - 03/07/2024 04:22 PM)?ValueReference Range?Prothrombin Time12.5H 10.9-12.4 - SEC?INTERNATIONAL NORM RATIO1.10.9-1.1 - ???Lab:Lactic Acid-LAB USE ONLY (Order Date - 03/07/2024) (Collection Date & Time - 03/07/2024 10:24 PM)?ValueReference Range? Lactic Acid-LAB USE ONLY2.2HH0.5-2.0 - mmol/L ???Lab:Demetris Tee (Order Date - 03/07/2024) (Collection Date & Time - 03/07/2024 10:24 PM)?ValueReference Range?Hold RandalSee Note- ???Lab:Lactic Acid (Order Date - 03/07/2024) (Collection Date & Time - 03/07/2024 07:36 PM)?ValueReference Range?Lactic Acid4.2HH0.5-2.0 - mmol/L ???Lab:SARS-CoV2/FLU/RSV (Order Date - 03/07/2024) (Collection Date & Time - 03/07/2024 04:22 PM)?ValueReference Range?Influenza A PCRNEGATIVE Negative -?Influenza B PCRNEGATIVENegative -?Resp Syncy Virus RNA Qual PCRNEGATIVENegative -?SARS COV2 PCR INHOUSENEGATIVENegative - ???Lab:Partial Thromboplastin Time (Order Date - 03/07/2024) (Collection Date & Time - 03/07/2024 04:22 PM)?ValueReference Range?Partial Thromboplastin Time30.126.0-36.8 - SEC ???Lab:D Dimer High Sensitivity (Order Date - 03/07/2024) (Collection Date & Time - 03/07/2024 04:22 PM)?ValueReference Range?D Dimer High Lkbyumaeang548- NG/ML ???Lab:Ethanol (Order Date - 03/07/2024) (Collection Date & Time - 03/07/2024 04:22 PM)?ValueReference Range?Ethanol< 10- mg/dL * Lab:Comprehensive Met. Panel * Collection Date [...] 03/07/2024 10:24 PM)?ValueReference Range?Hold Green GelSee Note- ???Imaging:CT angio chest PE protocol (Order Date - 03/07/2024) (Performed Date - 03/07/2024) ???Imaging:XR chest 2V (Order Date - 03/07/2024) (Performed Date - 03/07/2024) ???Imaging:XR shoulder RT min 2V (Order Date [...] s3, or vascular bruits.?LUNGS:?, diminished breath sounds on the RIGHT, rhonchi on the RIGHT, rhonchi on the LEFT, scattered inspiratory wheezes.?BREASTS:??no masses palpable bilaterally.?ABDOMEN:?bowel sounds normal, no ascites, no organomegaly, no mass, overweight.?RECTAL EXAM:?not examined.?MUSCULOSKELETAL:?extremities unremarkable, no clubbing, cyanosis or edema.?PERIPHERAL PULSES:?normal.?NEUROLOGIC:?alert [...] and no change in his regimen as necessary.???3.?Rib lesion - M89.9???Notes :A CT angiogram done in the emergency room showed multiple left lower lobe pulmonary masses and a 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 He has mild pain in this area.? A plan has been made to do a fine-needle aspiration biopsy of a left lung mass.? He wiill then need a PET CT scan decisions will be made about the indicated treatment.? We discussed today that this is likely a pulmonary neoplasm.? His PSA is normal.???4.?COPD (chronic obstructive pulmonary disease) - J44.9???Notes :He had a recent hospitalization for respiratory failure. He is doing well now with prednisone. This was continued until he sees his intensive care specialist. He is comfortable at rest or with prolonged exertion becomes dyspneic and tachycardic. He is no longer smoking.???5.?Primary osteoarthritis of both knees - M17.0???Notes :He has had knee surgery. He will continue on current therapy and be monitored carefully.???6.?ASHD (arteriosclerotic heart disease) - I25.10???Notes :He denies any recent angina palpitations or syncope. Current therapy was continued.???7.?Former smoker - Z87.891???Notes :He seems motivated not to smoke. We formulated a plan to prevent relapse in time to stress and illness.???8.?Benign prostatic hyperplasia with lower urinary tract symptoms - N40.1???Notes :He rises from sleep once and sometimes twice a night. He had no nodules in his prostate. We discussed modifications to his lifestyle he could make to reduce nocturia.???9.?Overweight - E66.3???Notes :He has gained 2 pounds. His body mass index is 29. We made a plan to lose weight at a rate of one half of a pound per week??? Plan: * Treatment: 2.?Mixed hyperlipidemia? Continue Incruse Ellipta Aerosol Powder Breath Activated, 62.5 MCG/INH, INHALE 1 PUFF BY MOUTH DAILY, Inhalation;?Continue Breo Ellipta Aerosol Powder Breath Activated, 200-25 MCG/INH, Inhalation;?Continue Albuterol Sulfate HFA Aerosol Solution, 108 (90 Base) MCG/ACT, Inhalation;?Continue Pravastatin Sodium Tablet, 80 MG, 1 tablet, Orally, Once a day;?Continue predniSONE Tablet, 10 MG, 1 tablet, Orally, Once a day.?? * Procedure Codes:?72669 MEASU RE BLOOD OXYGEN LEVEL * Preventive Medicine:? ??Counseling:?Care goal follow-up plan:?Counseling for abnormal BMI given?Yes ?Above Normal BMI Follow-up?Dietary management education, guidance, and counseling, Dietary needs education ?Smoking/Tobacco Use?Patient counseled on the dangers of tobacco use and urged to quit.?03/31/2024 ??COPD Care Plan:?Patient Lifestyle Goals?Be able to be more active with friends and family, Reduce number of ED and hospitalizations, Relieve symptoms and improve quality of life.?Treatment Goals?Eat a nutritious diet and increase water consumption to 6-8 glasses a day, Exercise to help whole body, including lungs.?Barriers?no barriers.?Self-Managment Goals?Eat a healthy diet, Get an air purifier for the rooms you are in the most.? * Follow Up:?after biopsy Dr Jan martin is doing, After the biopsy (Reason: OV after biopsy done by Dr Alvarado, To discuss the biopsy results and develop a treatment plan) * Images: * Sign off status: Completed true * Provider:?Koby Peña MD Date:?03/07 Generated for Elisabeth andersen/Dina/eTransmitting on:?04/04/2024 12:41 PM EST History and Physical Notes * [...] vascular bruits LUNGS: , diminished breath sounds on the RIGHT, rhonchi on the RIGHT, rhonchi on the LEFT, scattered inspiratory wheezes ABDOMEN: bowel sounds normal, [...]
--- NOTE | 2024-04-04 12:51 | A.OFFVIS_ITS ---
Vital Signs 04/04/24 12:52 Height 6 ft Weight 210 lb BMI 28.5 BP 112/64 Blood Pressure Location Lt brachial Position Sitting Pulse 86 Pulse Oximetry (%) 96 Oxygen Delivery Method Room Air Intake Visit Reasons: Discuss pet scan results Intake Note: Dx: Lt lower lobe nodules. Patient here to discuss PET scan from 03-28-2024. Patient c/o: SOB. Uses albuterol. Enterprise Resource Planner Required: No Accompanied by: Self / Same As Patient Allergies Penicillins [PENICILLINS] Allergy (Intermediate, Verified 04/04/24 12:53) SWELLING Sulfa (Sulfonamide Antibiotics) [Sulfa (Sulfonamides)] Allergy (Mild, Verified 04/04/24 12:53) RASH HPI Comments Details: Patient presents here status post PET scan. Unfortunately he was also supposed to have a IR biopsy of this right chest wall lesion which has not taken place yet. PET scan results were reviewed which demonstrate the pathologic finding of the right 3rd rib as noted prior. No new issues. [facility] Medical History COPD exacerbation Upper respiratory infection COPD (chronic obstructive pulmonary disease) Surgical History History of arthroscopy of left knee History of back surgery History of total replacement of both hip joints Social History Household Members: None Housing: House Do you presently have visiting nurse or other home services: No Alcohol intake: current Alcohol intake frequency: a few times a month Alcohol type: beer Patient Tobacco Use Status: Former Tobacco user service: Yes Physical Exam Vital Signs: Last Vital Signs Pulse 86 04/04/24 12:52 BP 112/64 04/04/24 12:52 Pulse Ox 96 04/04/24 12:52 Oxygen Delivery Method Room Air 04/04/24 12:52 BMI result Body Mass Index 28.5 Chest Other: Status quo. Right upper thoracic wall tenderness in the region of pathology Assessment & Plan Assessment & Plan (1) Chest wall mass: Comment: HE HAS HISTORY OF A RECENT FALL HITTING THE RIGHT SIDE OF THE CHEST, BUT PAIN WAS MINIMAL. AT THE TIME OF ADMISSION CTA OF THE CHEST WAS DONE TO RULE OUT PULMONARY EMBOLI. A MASS IN THE RIGHT UPPER CHEST WITH INVOLVEMENT OF THE 3RD RIB WAS NOTED, QUESTION OF FRACTURE DUE TO THE FALL AND ALSO QUESTION OF NEOPLASTIC PROCESS. Code(s): R22.2 - Localized swelling, mass and lump, trunk Category: Surgical Plan Follow-up as to the delay for the IR biopsies being investigated. The meantime patient will see me after IR biopsy of his right rib lesion and discussed the pathology results at that time. All questions answered Coding Level of Care Code Est Pt Level 4 (76345) Diagnoses Chest wall mass R22.2
[2024-04-04 12:52] VITALS: BP 112/64; PULSE 86; O2SAT 96; BMI 28.5
== END 2024-04-04 13:17 | disposition home or self-care (01) ==
PROVIDERS: PCP Internal Medicine Medical Oncology; Visit Provider Surgery
DX: R22.2 Localized swelling, mass and lump, trunk (principal)
CPT/HCPCS: 99214

== ENCOUNTER → 2024-04-04 12:39 | Outpatient (BNVA) | payer MEDICARE, SELFPAY | PROVIDERS: PCP Internal Medicine Medical Oncology; Visit Provider Surgery | DX: R22.2 Localized swelling, mass and lump, trunk (principal) | CPT/HCPCS: 99212 ==

== ENCOUNTER 2024-04-11 12:59 | Outpatient (AMB) | payer MEDICARE, SELFPAY ==
[2024-04-11 13:12] VITALS: BP 104/68; PULSE 112; O2SAT 95; BMI 28.6
--- NOTE | 2024-04-11 13:12 | MHC.OFFVIS ---
Vital Signs 04/11/24 13:12 Height 6 ft Weight 210 lb 8.663 oz BMI 28.6 BP 104/68 Blood Pressure Location Lt brachial Position Sitting Pulse 112 H Pulse Source Pulse Oximeter Pulse Oximetry (%) 95 Oxygen Delivery Method Room Air Intake Visit Reasons: COPD Director Of Coding Required: No Allergies Penicillins [PENICILLINS] Allergy (Intermediate, Verified 04/11/24 13:36) SWELLING Sulfa (Sulfonamide Antibiotics) [Sulfa (Sulfonamides)] Allergy (Mild, Verified 04/11/24 13:36) RASH Medication List - Last Reconciled 04/11/24 by Mary Jo Mckeon MD albuterol sulfate 90 mcg/actuation 2 puffs PO Q4H PRN Breo Ellipta 200-25 mcg/dose (fluticasone furoate-vilanterol) 1 ea PO DAILY NS Incruse Ellipta 62.5 mcg/actuation (umeclidinium) 1 inh PO DAILY NS lidocaine 5% 1 patch topical DAILY multivitamin (Daily Multi-Vitamin tablet) 1 tab PO DAILY pravastatin 80 mg PO BEDTIME Do you need a note to return to daycare/school/sports/work: No HPI HPI COPD: Details: Mr. Up, comes back for follow-up for his COPD, Breathing is remaining stable. He does not go outdoors much. He does not use the O2 which he has at home. Sleeps well except for some discomfort in the right mid chest. Cough is minimal. He wants to discuss results of PET scan. [facility] Medical History COPD exacerbation Upper respiratory infection COPD (chronic obstructive pulmonary disease) Surgical History History of arthroscopy of left knee History of back surgery History of total replacement of both hip joints Social History Household Members: None Housing: House Do you presently have visiting nurse or other home services: No Alcohol intake: current Alcohol intake frequency: a few times a month Alcohol type: beer Patient Tobacco Use Status: Former Tobacco user service: Yes Review of Systems Const All systems reviewed & are unremarkable except as noted in HPI and below Eyes Reports no additional complaints ENT Reports no additional complaints Card Denies chest pain, Denies irregular heart rhythm and Denies leg edema Resp Reports as per HPI GI Reports no additional complaints Reports no additional complaints Musc Reports back pain (mild , if he does any physical work .) Skin/Breast Reports system reviewed and no additional complaints, except as documented Neuro Reports no additional complaints Physical Exam Vital Signs: Last Vital Signs Pulse 112 H 04/11/24 13:12 BP 104/68 04/11/24 13:12 Pulse Ox 95 04/11/24 13:12 Oxygen Delivery Method Room Air 04/11/24 13:12 BMI result Body Mass Index 28.6 Const General: comfortable, no acute distress, alert and awake Orientation/consciousness: patient oriented x3 HEENT Head: Yes normal to inspection General nose exam: No nasal polyps present, No nasal discharge present and Other nasal findings present (He does have mild nasal congestion) Face and sinus: Yes sinuses nontender Mouth: oropharynx normal Throat: Yes posterior oropharynx normal and Yes posterior oropharynx abnormal (Slightly erythema) Eyes General: appearance normal, both eyes and all related structures Neck Neck: Yes normal visual inspection, Yes no lymphadenopathy, Yes trachea midline and Yes no JVD Thyroid: Thyroid normal Chest Chest palpation & inspection: normal inspection of the chest, normal palpation of entire chest wall and no tenderness (THERE IS NO LOCALIZED TENDERNESS OF THE RIGHT CHEST WALL) Resp Other: Percussion note is resonant, breath sounds are very distant with prolonged expiratory phase. TODAY HE DOES NOT HAVE ANY AUDIBLE WHEEZES OR RHONCHI. Cardio Palpation: normal PMI Rate: regular rate Rhythm: regular rhythm Heart sounds: no gallops and no murmurs GI Palpation (GI): Soft to palpation, nontender, No hepatosplenomegaly present and no masses Auscultation: normal bowel sounds Back/Spine/Pelvis Thoracic/Lumbar Spine: thoracic and lumbar spine normal to inspection and thoraco-lumbar ROM limited Skin General skin exam: no rashes or lesions noted Neuro General: patient oriented x3 and no focal motor deficits Cranial nerves: Yes CN's II-XII intact bilaterally Extrem General: Yes normal to inspection, Yes no clubbing, cyanosis or edema and Yes no calf tenderness Psych Appearance: grossly normal and well kempt Speech and movement: Normal speech and movement present Results Reviewed Results Reviewed: Results of PET scan explained to him. Assessment & Plan Assessment & Plan (1) COPD (chronic obstructive pulmonary disease): Comment: Patient does have chronic obstructive pulmonary disease, moderately severe and seem to be well. Controlled at this time Code(s): J44.9 - Chronic obstructive pulmonary disease, unspecified Category: Medical Plan: Advised to continue using Incruse Ellipta 1 inhalation daily and Breo Ellipta 200-25 1 inhalation daily Also may use albuterol 2 puffs Q 4-6 hours p.r.n.. (2) Acute hypoxemic respiratory failure: Comment: In the hospital he was found to have hypoxemia, He was sent home on oxygen. But since he has been home he does not feel like using the O2. He does have stationary concentrator as well as cylinders for portable O2, but he say is he does not feel like using. Code(s): J96.01 - Acute respiratory failure with hypoxia Category: Medical Plan: I advised him that if he feels short of breath or has any respiratory distress it is okay to use O2 2 L/minute. As he does not come out of the house and go outdoors for long periods he does not need to use portable oxygen at this time. (3) Chest wall mass: Comment: HE HAS HISTORY OF A RECENT FALL HITTING THE RIGHT SIDE OF THE CHEST, BUT PAIN WAS MINIMAL. AT THE TIME OF ADMISSION CTA OF THE CHEST WAS DONE TO RULE OUT PULMONARY EMBOLI. A MASS IN THE RIGHT UPPER CHEST WITH INVOLVEMENT OF THE 3RD RIB WAS NOTED, QUESTION OF FRACTURE DUE TO THE FALL AND ALSO QUESTION OF NEOPLASTIC PROCESS. This is confirmed to be FDG positive by the PET scan. PATIENT HAS BEEN FOLLOWED UP BY DR. SANTILLAN AND SCHEDULED TO HAVE PERCUTANEOUS NEEDLE BIOPSY OF THE CHEST WALL MASS. FURTHER PLANNED FOR THE TREATMENT WOULD BE MADE AFTER THE BIOPSY RESULTS. Code(s): R22.2 - Localized swelling, mass and lump, trunk Category: Surgical Plan: EXPLAINED TO THE PATIENT THE FINDINGS OF THE PET SCAN, AND POSSIBILITY OF NEOPLASTIC PROCESS. ALSO EXPLAINED ABOUT THE NEED TO DO PERCUTANEOUS NEEDLE BIOPSY FOR FURTHER PLANNING. HE UNDERSTANDS WELL AND IS AGREEABLE TO UNDERGO THE PROCEDURE. Coding Level of Care Code Est Pt Level 3 (35462) Diagnoses COPD (chronic obstructive pulmonary disease) J44.9 Acute hypoxemic respiratory failure J96.01 Chest wall mass R22.2
--- OUTSIDE RECORDS SUMMARY | 2024-04-11 15:04 | XMS_ITS ---
Author Organization Koby Peña III, MD Address [address] [place] [address] [place] [address] Care Team Providers Care Square Dance Caller Name Role Phone Koby Peña Primary Care Provider Allergies Allergen (clinical drug ingredient) Drug/Non Drug Allergy documented on EMR Reaction Allergy Type Onset Date Status Penicillin Unknown Drug Allergy Active Substance with sulfonamide structure and antibacterial mechanism of action (substance) Sulfa Antibiotics Unknown Drug Allergy Active REASON FOR VISIT Follow up Medications Medication SIG (Take, Route, Frequency, Duration) [...] Additional Findings: Tobacco Non-User Ex-cigaret te smoker Encounters Encounter Location Date Provider Diagnosis Koby Peña III, MD [address] [place] [address] [place] [address] 04/04/2024 Koby Peña Mixed hyperlipidemia E78.2 and Pulmonary emphysema, unspecified emphysema type J43.9 Assessments Encounter Date Diagnosis (ICD Code) Assessment Notes Treat ment Notes Treatment Clinical Notes 04/04/2024 Mixed hyperlipidemia (ICD-10 - E78.2) His lipids are currently stable and no change in his regimen as necessary. 04/04/2024 Pulmonary emphysema, unspecified emphysema type (ICD-10 - J43.9) His lung disease is stable. He is no longer smoking. He is short of breath with exertion but not during the course of daily life. Plan Of Treatment Medication Medication Name Sig Start Date Stop Date Notes Pravastatin Sodium 80 MG 1 tablet Orally Once a day 2023 Albuterol Sulfate HFA 108 (9 0 Base) MCG/ACT Inhalation Breo Ellipta 200-25 MCG/INH Inhalation predniSONE 10 MG 1 tablet Orally Once a day 03/17/2024 Incruse Ellipta 62.5 MCG/INH INHALE 1 PU FF BY MOUTH DAILY Inhalation Next Appt Details Provider Name:Koby Peña, 12/02/2024 10:00:00 AM, [address] [place] [address] [address] MA[address], [place], [address], Progress Notes * Jaren CANELA EDOB:[birth year] (79 yo M)Acc No.[id number]:04/04/2024 Progress Notes Patient:?ALYSAJaren LORD Provider:?Koby Peña MD :1945???Age:79 Y???Sex:Male Rey e:04/04/2024 Address:[facility] [address] [facility] Subjective: * Chief Complaints: * ???1. Follow up. * HPI: ???COVID-19 Screening:?Questions?Have you had any new onset fever, chills, cough, congestion, sore throat, shortness of breath, muscle aches??No * ROS:?General/Constitutional:?pain?only normal aches and pains.?Chills?denies.?Fatigue?admits.?Fever?denies.?ENT:?Decreased hearing?denies.?Respiratory:?Cough?denies.?Cardiovascular:?Chest pain with exertion?denies.?Dyspnea on exertion?denies.?Shortness of breath?denies.?Gastrointestinal:?Constipation?denies.?Decreased appetite?denies.?Diarrhea?denies.?Heartburn?denies.?Nausea?denies.?Rectal bleeding?denies.?Vomiting?denies.?Hematology:?bruising?denies.?petechiae?denies.?Swollen glands?none have been noted.?Genitourinary:?Frequent urination?denies.?Musculoskeletal:?Muscle aches?denies.?Painful joints?denies.?Sciatica?denies.?Weakness?denies.?Skin:?Itching?denies.?Rash?denies.?Skin lesion(s)?denies.?Neurologic:?Difficulty speaking?denies.?Dizziness?denies.?Headache?denies.?Low back pain?denies.?Psychiatric:?Depressed mood?denies.? 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 * Surgical History:?fracture r ight arm age 18 1963, bilateral knee replacements , Bronchoscopy for interstitial pneumonia, [facility] 07/2007, Direct laryngoscopy with biopsy of paralyzed left vocal cord, Dr. De León 03/2009, Incomplete colonoscopy, [facility], Dr. Mo, severe sigmoid diverticulosis 01/2010, [place] left medial menisce[place] Arm[place] Mil[place] [facility], [place] [facility] [place], Upper endoscopy and colon[place], [place]. Montague, [facility] for iron deficiency anemia 04/2018, No history . * Hospitalization/Major Diagno stic Procedure:?Hospitalized for five days due to respiratory distress and shoulder injury. , No history . * Family History:?Father: dece ased 59 yrs.?Mother: [...] Tobacco Non-User?Ex-cigarette smoker ???He was born in [facility] at [facility]. 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 He has had no toxic exposures. He has no worship objections to blood transfusion. He lives in [facility] with his sister. * Medications:?Taking Incruse Ellipta 62.5 MCG/INH Aerosol Powder Breath Activated INHALE 1 PUFF BY MOUTH DAILY Inhalation , Taking Breo Ellipta 200-25 MCG/INH Aerosol Powder Breath Activated Inhalation , Taking Albuterol Sulfate HFA 108 (90 Base) MCG/ACT Aerosol Solution Inhalation , Taking Pravastatin Sodium 80 MG Tablet 1 tablet Orally Once a day , Taking predniSONE 10 MG Tablet 1 tablet Orally Once a day , Discontinued Pravastatin Sodium 80 MG Tablet take 1 tablet by mouth every day , Medication List reviewed and reconciled with the patient * Allergies:?Penicillin: Aller gy, Sulfa Antibiotics: Allergy. Objective: * Vitals:? * Examination: ???General Examination: ?GENERAL APPEARANCE:?pleasant, well nourished, well developed, in no acute distress, calm and relaxed.?HEAD:?atraumatic, normocephalic.?EYES:?eomi, perrla, anicteric, conjugate.?EARS:?normal.?NOSE:?septum intact.?ORAL CAVITY:?normal, unremarkable.?NECK/THYROID:?no jugular venous distention, no carotid bruit, thyroid normal.?LYMPH NODES:?no enlarged lymph nodes,spleen normal.?SKIN:?no suspicious lesions, anicteric.?HEART:?no clicks, gallops, murmurs, or rubs, regular rhythm, S1, S2 normal, no s3, or vascular bruits.?LUNGS:?clear to auscultation .?BREASTS:??no masses palpable bilaterally.?ABDOMEN:?bowel sounds normal, no ascites, no organomegaly, no mass.?RECTAL EXAM:?not examined.?MUSCULOSKELETAL:?extremities unremarkable, no clubbing, cyanosis or edema.?PERIPHERAL PULSES:?normal.?NEUROLOGIC:?alert and oriented, cranial nerves 2-12 grossly intact, deep tendon reflexes 2+ symmetrical, motor strength normal upper and lower extremities, sensory exam intact.?PSYCH:?alert, oriented.? Assessment: * Assessment: 1.?Mixed hyperlipidemia - E7 8.2???Notes :His lipids are currently stable and no change in his regimen as necessary.???2.?Pulmonary emphysema, unspecified emphysema type - J43.9???Notes :His lung disease is stable. He is no longer smoking. He is short of breath with exertion but not during the course of daily life.??? Plan: * Treatment: * Images: * The named appointment provid er may or may not be the originator of this progress note, and it is not deemed complete until electronically signed by the appointment provider. Sign off status: Pending * Provider:?Koby Peña MD Date:?03/08 Generated for Elisabeth andersen/Dina/Kelechi on:?04/11/2024 03:03 PM EST History and Physical Notes * HPI (History of Present Illness) Category Sub-Category Detail Notes COVID-19 Screening Questions Have you had any new onset fever, chills, cough, congestion, sore throat, shortness of breath, muscle aches?: No Examination Category Sub-Category Detail Notes General Examination GENERAL APPEARANCE: pleasant , well nourished, well developed, in no acute distress, calm and relaxed HEAD: atraumatic, normocep halic EYES: eomi, perrla, anicte lyle, conjugate EARS: normal NOSE: septum intact NECK/THYROID: no jugular venous di stention, no carotid bruit, thyroid normal HEART: no clicks, gallops, murmurs, or rubs, regular rhythm, S1, S2 normal, no s3, or vascular bruits LUNGS: clear to auscultatio n ABDOMEN: bowel sounds normal, no ascites, no organomegaly, no mass NEUROLOGIC: alert and oriented, cranial nerves 2-12 [...]
--- OUTSIDE RECORDS SUMMARY | 2024-04-11 15:04 | XMS_ITS ---
Author Organization Koby Peña III, MD Address [address] [address] Care Team Providers Care Degreasing Wheel Operator Name Role Phone Koby Peña Primary Care Provider [phone] REASON FOR VISIT Message Social History Sex Assigned At : Social History Observation Description Sex Assigned At Male Encounters Encounter Location Date Provider Diagnosis Koby Peña III, MD [address] [place] [address] [address] [facility] [address] 04/11/2024 Koby Peña Plan Of Treatment Next Appt Details Provider Name:Koby Peña, 12/02/2024 10:00:00 AM, [address] [place] [address] [address], [place], [address], Progress Notes * Jaren CANELA EDOB:[birth year] (79 yo M)Acc No.[id number]:04/11/2024 Patient:?Jaren CANELA :1945???Age:79 Y???Sex:Male Address:[place] [address] * * Date:?
== END 2024-04-11 13:36 | disposition home or self-care (01) ==
PROVIDERS: PCP Internal Medicine Medical Oncology; Visit Provider Internal Medicine
DX: J44.9 Chronic obstructive pulmonary disease, unspecified (principal); J96.01 Acute respiratory failure with hypoxia; R22.2 Localized swelling, mass and lump, trunk
CPT/HCPCS: 99213

== ENCOUNTER → 2024-04-11 12:59 | Outpatient (BNVA) | payer MEDICARE, SELFPAY | PROVIDERS: PCP Internal Medicine Medical Oncology; Visit Provider Internal Medicine | DX: J44.9 Chronic obstructive pulmonary disease, unspecified (principal); J96.01 Acute respiratory failure with hypoxia; R22.2 Localized swelling, mass and lump, trunk | CPT/HCPCS: 99212 ==

== ENCOUNTER → 2024-05-05 10:28 | Outpatient (BNV) | payer MEDICARE, SELFPAY | PROVIDERS: PCP Internal Medicine Medical Oncology; Visit Provider Physician Assistant Surgical | DX: R22.2 Localized swelling, mass and lump, trunk (principal) | CPT/HCPCS: 32408 ==

== ENCOUNTER 2024-05-16 09:45 | Outpatient (AMB) | payer MEDICARE, SELFPAY ==
--- NOTE | 2024-05-16 09:48 | MHC.OFFVIS ---
Intake Visit Reasons: Rt subpectoral/chest wall mass, needle core bx Intake Note: Patient here to discuss Rt subpectoral/ chest wall mass, needle core bx results. Reports site healing well. Denies pain or discomfort. BX: 05-05-2024 Automobile Upholsterer Required: No Accompanied by: Self / Same As Patient Allergies Penicillins [PENICILLINS] Allergy (Intermediate, Verified 05/16/24 09:51) SWELLING Sulfa (Sulfonamide Antibiotics) [Sulfa (Sulfonamides)] Allergy (Mild, Verified 05/16/24 09:51) RASH HPI Comments Details: Patient presents for follow-up. 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 Is unclear whether this is arising from the rib or metastatic from the lung to the rib and lymph node. Patient was right rib pain has persisted. [facility] Medical History (Updated 04/11/24 @ 13:43 by Mary Jo Mckeon MD) COPD exacerbation Upper respiratory infection COPD (chronic obstructive pulmonary disease) Surgical History (Updated 05/17/24 @ 14:32 by Vasiliy Alvarado MD) Hx of surgical procedure (05/05/24) History of arthroscopy of left knee History of back surgery History of total replacement of both hip joints Social History Household Members: None Housing: House Do you presently have visiting nurse or other home services: No Alcohol intake: current Alcohol intake frequency: a few times a month Alcohol type: beer Patient Tobacco Use Status: Former Tobacco user service: Yes Physical Exam Chest Other: Tenderness right axilla over site of rib lesion also palpable lymph node status quo Assessment & Plan Assessment & Plan (1) Lung mass: Comment: A FEW NODULAR DENSITIES NOTED IN THE LEFT LOWER LOBE THE LARGER BEING 2.2 CMs THIS COULD BE INFLAMMATORY VERSUS NEOPLASTIC Code(s): R91.8 - Other nonspecific abnormal finding of lung field Category: Surgical (2) Chest wall mass: Comment: HE HAS HISTORY OF A RECENT FALL HITTING THE RIGHT SIDE OF THE CHEST, BUT PAIN WAS MINIMAL. AT THE TIME OF ADMISSION CTA OF THE CHEST WAS DONE TO RULE OUT PULMONARY EMBOLI. A MASS IN THE RIGHT UPPER CHEST WITH INVOLVEMENT OF THE 3RD RIB WAS NOTED, QUESTION OF FRACTURE DUE TO THE FALL AND ALSO QUESTION OF NEOPLASTIC PROCESS. This is confirmed to be FDG positive by the PET scan. PATIENT HAS BEEN FOLLOWED UP BY DR. ALVARADO AND SCHEDULED TO HAVE PERCUTANEOUS NEEDLE BIOPSY OF THE CHEST WALL MASS. FURTHER PLANNED FOR THE TREATMENT WOULD BE MADE AFTER THE BIOPSY RESULTS. Code(s): R22.2 - Localized swelling, mass and lump, trunk Category: Surgical Plan Current plan is to arrange for oncologic follow-up. Patient was like to pursue this at [facility]. Arrangements were made for this. Orders: Referrals Hematology & Oncology Referral R91.8 - Other nonspecific abnormal finding of lung field Coding Level of Care Code Est Pt Level 4 (56111) Diagnoses Lung mass R91.8 Chest wall mass R22.2
--- OUTSIDE RECORDS SUMMARY | 2024-05-16 10:32 | XMS_ITS ---
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 He has mild pain in this area. A plan has been made to Obtaining tissue through a biopsy of the rib mass. This will be scheduled with interventional radiology. He wiill then need a PET CT scan decisions will be made about the indicated treatment. We discussed today that this is likely a pulmonary neoplasm. His PSA is normal. Vital Signs Temperature 97.9 degrees Fahrenheit 03/31/20 24 Blood pressure systolic 121 mm Hg 03/31/20 24 Blood pressure diastolic 84 mm Hg 024 Heart Rate 82 /min 03/31/2024 Height 72 in 03/31/2024 Weight 208 lbs 03/31/2024 BMI 28.21 kg/m2 03/31/2024 Oximetry 100 % 03/31/2024 Encounters Encounter Location Date Provider Diagnosis Koby Peña III, MD [address] [place] [address] [place] [address] 03/31/2024 Koby Peña Mixed hyperlipidemia E78.2 ; [...] area. A plan has been made to Obtaining tissue through a biopsy of the rib mass. This will be scheduled with interventional radiology. He wiill then need a PET CT scan decisions will be made about the indicated treatment. We discussed today that this is likely a pulmonary neoplasm. His PSA is normal. 03/31/2024 COPD (chronic obstructive pulmonary disease) (ICD-10 - J44.9) He had a recent hospitalization for respiratory failure. He is doing well now with prednisone. This was continued until he sees his equal opportunity specialist. He is comfortable at rest or [...] develop a treatment plan Provider Name:Koby Peña, 05/17/2024 09:00:00 AM, [address] [place] [address] [address] [place] [place] [address], [place], [address], Provider Name:Koby Peña, 12/02/2024 10:00:00 AM, [address] [place] [address] [address], [place], [address], Progress Notes * Jaren CANELA EDOB:[birth year] (79 yo M)Acc No.[id number]:03/31/2024 Progress Notes Patient:?Jaren CANELA Provider:?Koby Peña MD :1945???Age:79 Y???Sex:Male Rey e:03/31/2024 Address:[address] [place], [place] [address] Subjective: * Chief Complaints: * ???Distractive lesion right third ribCOPDEmphysemaHyperlipidemiaArthritis both kneesAtherosclerotic heart diseaseBenign prostatic hyperplasiaL1 compression fracture * HPI: ???COVID-19 Screening:?Questions?Have you had any new onset fever, chills, cough, congestion, sore throat, shortness of breath, muscle aches??No ???:?The patient, a 79-year-old male, presented with discomfort [...] he had a PET scan recently at [facility] for an unidentified issue. 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 There were also a few lymph nodes present. The patient has a history of smoking. Is necessary at this time to obtain a tissue diagnosis.? He has a large mass surrounding a rib and a pulmonary nodule.? ?We have communicated with Dr. Alvarado;s office and determined we will order a needle aspiration biopsy of the rib mass. This would be safer and less likely to cause pneumothorax then an attempt at the pulmonary nodule.? Both lesions are PET scan positive.? This will be arranged through interventional radiology. * ROS:?General/Constitutional:?Admits?pain,?Right chest wall at third rib anteriorly.?Chills?denies.?Fatigue?admits.?Fever?denies.?ENT:?Decreased hearing?mild.?Respiratory:?Cough?non-productive.?Cardiovascular:?Chest pain with exertion?denies.?Dyspnea on exertion?denies.?Shortness of breath?with exertion.?Gastrointestinal:?Constipation?occasional.?Decreased appetite?denies.?Diarrhea?denies.?Heartburn?denies.?Nausea?denies.?Rectal bleeding?denies.?Vomiting?denies.?Hematology:?bruising?denies.?petechiae?denies.?Swollen glands?none have been noted.?Genitourinary:?Frequent urination?once a night.?Musculoskeletal:?Muscle aches?denies.?Painful joints?denies.?Sciatica?denies.?Weakness?denies.?Skin:?Itching?denies.?Rash?denies.?Skin lesion(s)?denies.?Neurologic:?Difficulty speaking?denies.?Dizziness?denies.?Headache?denies.?Low back pain?denies.?Psychiatric:?Depressed mood?which is mild.? * Medical History:? * Surgical History:?fracture r ight arm age 18 1964bilateral knee replacements Bronchoscopy for interstitial pneumonia, [facility] 07/2007Direct laryngoscopy with biopsy of paralyzed left vocal cord, Dr. De León 03/2009Incomplete colonoscopy, [facility], Dr. Mo, severe sigmoid diverticulosis 01/2010Partial left medial meniscectomy and debridement, Dr. Armand Milner, [facility] 03/2010lumbar spine fusion, [facility] 2016Upper endoscopy and colonoscopy, Dr. Montague, [facility], for iron deficiency anemia 04/2018No history * [...] Tobacco Non-User?Ex-cigarette smoker ???He was born in [facility]. 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 He has had no toxic exposures. He has no confucianist objections to blood transfusion. He lives in [facility] with his sister. * Medications:?TakingIncruse E [...] Date & Time - 03/08/2024 04:44 AM)?ValueReference Range?Uwkqke833488-356 - mmol/L?Blood Urea Mvvjlcoc80Q6-49 - mg/dL?Creatinine0.680.5-1.4 - mg/dL?Glucose Itidfk89535-083 - mg/dL?Calcium8.68.4-10.2 - mg/dL ?Potassium3.83.3-5.1 - mmol/L?Oqkxxudp472L47-454 - mmol/L ?Carbon Nmidoww9355-36 - mmol/L?Anion Ami3779-89 - ?Estimated Glomerular Filt Rate> 60-?Creatinine Clr [...] - 03/07/2024 04:22 PM)?ValueReference Range?B Type Natriuretic Ldqkcud77<100 - pg/mL ???Lab:Prothrombin Time INR (Order Date [...] - 03/07/2024 04:22 PM)?ValueReference Range?D Dimer High Lpdvsnthkhl088- NG/ML ???Lab:Ethanol (Order Date - 03/07/2024) (Collection [...] area.? A plan has been made to Obtaining tissue through a biopsy of the? rib mass. This will be scheduled with interventional radiology. ?He wiill then need a PET CT scan decisions will be made about the indicated treatment.? We discussed today that this is likely a pulmonary neoplasm.? His PSA is normal.???4.?COPD (chronic obstructive pulmonary disease) - J44.9???Notes :He had a recent hospitalization for respiratory failure. He is doing well now with prednisone. This was continued until he sees his equal opportunity specialist. He is comfortable at rest or [...] 1 tablet, Orally, Once a day.?? * Procedures:?In the pulmonary a. ? * Procedure Codes:?52288 MEASU RE BLOOD OXYGEN LEVEL * Preventive [...] Provider:?Koby Peña MD Date:?03/07 Generated for Elisabeth andersen/Dina/Tulioitting on:?05/16/2024 10:31 AM EST History and Physical Notes * [...]
--- OUTSIDE RECORDS SUMMARY | 2024-05-16 10:32 | XMS_ITS | Patient Health Record ---
Author Organization Koby Peña III, MD Address [address] [place] [address] Care Team Providers Care Tongue Stitcher Name Role Phone Koby Peña Primary Care [...] ff Reviewed date:08/09/2023 01:08:24 PM Interpretation: Performing Lab:[facility], [address] [place] [address] Notes/Report: White Blood Count 8.8 4.8-10.8 X10*3/uL [...] NRBC Abs Auto 0.000 0.0-0.012 X10*3/uL Comprehensive [place]. Panel Fa st Reviewed date:08/09/2023 01:08:24 PM Interpretation: Performing Lab:[facility], [address] [place] [address] Notes/Report: Sodium 141 135-145 mmol/L Potassium 4.3 3.3-5.1 mmol/L Chloride 105 96-108 mmol/L Carbon Dioxide 27 22-29 mmol/L Anion Gap 13 12-20 Blood Urea Nitrogen 16 9-16 mg/dL Creatinine 0.78 0.5-1.4 mg/dL Estimated Glomerular Filt Rate > 60 NOTE: For -Citizen Of [place] individuals, multiply the result by 1.210. Chronic [...] Ferritin Reviewed date:08/09/2023 01:08:24 PM Interpretation: Performing Lab:[facility], [address] [place] [address] Notes/Report: Ferritin 86 20-250 ng/mL Lipid Panel Reviewed date:08/09/2023 01:08:24 PM Interpretation: Performing Lab:[facility], [address] [place] [address] Notes/Report: Triglycerides 160 <150 mg/dL Desirable Triglyceride: [...] me Reviewed date:09/14/2023 04:19:47 AM Interpretation: Performing Lab:[facility], [address] [place] [address] Notes/Report: Alk.Phos Isoenzymes Total 130 35-144 U/L Alk.Phos Isoenzymes Intest 9 1-24 % Alk.Phos Isoenzymes Bone 34 28-66 % Alk.Phos Isoenzymes Liver 57 25-69 % Alk.Phos Isoenzymes Placental 0 <=0 % Alk.Phos Iso. Macrohepatic 0 <=0 % THIS TEST WAS PERFORMED AT: [employer] [id number] [place] [phone] MARYSOL SOLANO MD,PHD Alk.Phos Isoenzymes Interp TNP Complete Blood Count Auto Di ff Reviewed date:11/27/2023 03:44:00 PM Interpretation: Performing Lab:[facility], [address] [place] [address] Notes/Report: White Blood Count 8.0 4.8-10.8 X10*3/uL [...] NRBC Abs Auto 0.000 0.0-0.012 X10*3/uL Comprehensive [place]. Panel Fa st Reviewed date:11/27/2023 03:44:00 PM Interpretation: Performing Lab:[facility], [address] [place] [address] Notes/Report: Sodium 144 135-145 mmol/L Potassium 4.3 3.3-5.1 mmol/L Chloride 107 96-108 mmol/L Carbon Dioxide 29 22-29 mmol/L Anion Gap 12 12-20 Blood Urea Nitrogen 16 9-16 mg/dL Creatinine 0.81 0.5-1.4 mg/dL Estimated Glomerular Filt Rate > 60 NOTE: For -Citizen Of [place] individuals, multiply the result by 1.210. Chronic [...] Panel Reviewed date:11/27/2023 03:44:00 PM Interpretation: Performing Lab:[facility], [address] [place] [address] Notes/Report: Triglycerides 159 <150 mg/dL Desirable Triglyceride: [...] Antigen Reviewed date:11/27/2023 03:44:00 PM Interpretation: Performing Lab:[facility], [address] [place] [address] Notes/Report: Prostate Specific Antigen 1.46 <0.05-4.0 ng/mL PSA methodology: Davila Alinity i Chemiluminescent Microparticle Immunoassay (CMIA) Complete Blood Count Auto Di ff Reviewed date:03/14/2024 05:01:23 AM Interpretation: Performing Lab:[facility], [address] [place] [address] Notes/Report: White Blood Count 12.4 4.8-10.8 X10*3/uL [...] gy Reviewed date:03/14/2024 05:01:23 AM Interpretation: Performing Lab:[facility], [address] [place] [address] Notes/Report: Hold Lav - Possible Hematology SEE NOTE Specimen will be held untested for 8 hours. Call Hematology if testing is desired. Prothrombin Time INR Reviewed date:03/14/2024 05:01:23 AM Interpretation: Performing Lab:[address] [address] Notes/Report: Prothrombin Time 12.5 10.9-12.4 SEC [employer]NATIONAL [...] Time Reviewed date:03/14/2024 05:01:23 AM Interpretation: Performing Lab:[address] [address] Notes/Report: Partial Thromboplastin Time 30.1 26.0-36.8 SEC For information regarding the monitoring of direct thrombin inhibitors, please refer to Pharmacy. Comprehensive Met. Panel Reviewed date:03/14/2024 05:01:23 AM Interpretation: Performing Lab:[address] [address] Notes/Report: Sodium 140 135-145 mmol/L Potassium 3.9 [...] Acid Reviewed date:03/14/2024 05:01:23 AM Interpretation: Performing Lab:[facility], [address] [place] [address] Notes/Report: Lactic Acid 4.2 0.5-2.0 mmol/L Critical value for test LATIC: Results called to and read back by: DAVIE Person calling: ROXANNE Date:03/07/2024 Time: 2010 Troponin-I High Sensitivity Reviewed date:03/14/2024 05:01:23 AM Interpretation: Performing Lab:[facility], [address] [place] [address] Notes/Report: Troponin-I High Sensitivity < 2.7 <3.5-35.0 ng/L The Davila high sensitivity Troponin-I results should be used in conjunction with other diagnostic information such as ECG, clinical observations and information, and patient symptoms to aid in the diagnosis of SC. B Type Natriuretic Peptide Reviewed date:03/14/2024 05:01:23 AM Interpretation: Performing Lab:[facility], [address] [place] [address] Notes/Report: B Type Natriuretic Peptide 10 <100 pg/mL For those patients who are being treated with Natrecor (nesiritide, recombinant BNP), BNP testing should be performed at least two hours post treatment in order to ensure that only endogenous levels of BNP are detected. Demetris Tee Reviewed date:03/14/2024 05:01:23 AM Interpretation: Performing Lab:[facility], [address] [place] [address] Notes/Report: Demetris Tee See Note Specimen held untested for 24 hours; Call to request Chemistry testing. Ethanol Reviewed date:03/14/2024 05:01:23 AM Interpretation: Performing Lab:[facility], [address] [place] [address] Notes/Report: Ethanol < 10 Serum/plasma ethanol results are to be used for medical/treatment purposes only. SARS-CoV2/FLU/RSV Reviewed date:03/14/2024 05:01:24 AM Interpretation: Performing Lab:[facility], [address] [place] [address] Notes/Report: Influenza A PCR NEGATIVE Negative Influenza [...] by authorized laboratories. Testing performed on the [employer] GeneXpert utilizing real-time RT-PCR. All SARS CoV2 and positive influenza A/B results are reported to [facility]. Blood Culture (First) Reviewed date:03/14/2024 05:01:23 AM Interpretation: Performing Lab:[address] [address] Notes/Report: Blood Culture (First) No growth after 5 days. Blood Culture (Second) Reviewed date:03/14/2024 05:01:23 AM Interpretation: Performing Lab:[address] [address] Notes/Report: Blood Culture (Second) No growth after 5 days. Lactic Acid-LAB USE ONLY Reviewed date:03/14/2024 05:01:24 AM Interpretation: Performing Lab:[address] [address] Notes/Report: Lactic Acid-LAB USE ONLY 2.2 0.5-2.0 mmol/L Critical value for test(s): LACTA Results called to and read back by: NAVEED Person calling: CORETTA Date: 03/07/24 Time: 2249 D Dimer High Sensitivity Reviewed date:03/14/2024 05:01:24 AM Interpretation: Performing Lab:[facility], [address] [place] [address] Notes/Report: D Dimer High Sensitivity 823 D-DIMER [...] Gel Reviewed date:03/14/2024 05:01:24 AM Interpretation: Performing Lab:[facility], [address] [place] [address] Notes/Report: Hold Green Gel See Note Specimen held untested for 24 hours; Call to request Chemistry testing. CT angio chest PE protocol Reviewed date:03/14/2024 05:01:24 AM Interpretation: Performing Lab: Notes/Report: [address] [address] [address] Scan Report Signed Patient: Jaren Up MR#: [id number] 287 : 1945 Acct:[id number] Age/Sex: 79 / M ADM Date: 03/07/24 Loc: [place] [address]: Subhash Welch MD Ordering Physician: Jeffrey Ellsworth MD Date of Service: 03/07/24 Procedure(s): CT angio chest PE protocol Accession Number(s): [id number] cc: Koby Peña MD; Jeffrey Ellsworth MD [...] 11:20 PM [facility] Dictated By: Clarence Block MD Signed By: <Electronically signed by Clarence Block MD in OV> 03/07/24 5860 DD/ 1849 TD/TT: 03/07/241919 Head Of Sales: [address] [address] [address] Scan Report Signed Patient: Kane Up MR#: [id number] 287 : 1945 Acct:[id number] Age/Sex: 79 / M ADM Date: 03/07/24 Loc: [place] [address]: Niki Welch MD Ordering Physician: Jeffrey Ellsworth MD Date of Service: 03/07/24 Procedure(s): CT ang io chest PE protocol Accession Number(s): [id number] cc: Koby Peña MD; Jeffrey Ellsworth MD EXAMINATION: CTA CHEST CLINICAL INFORMATION: Lung mass versus pul monary emboli COMPARISON: Chest radiograph ear lier today TECHNIQUE: Multidetector volume tric CT imaging of the chest was obtained both before as well as af ter the administration of 65 mL of Omnipaque 350 intravenous contrast without immediate adverse reactions. Axial MIP volume rendering pro vided. Sagittal and coronal reformatted images were obtained. Additional 2-D coronal and sagittal reformatted images and axial 3-D maximum intensity projection MIP images are generated on the CT workstation. This CT examination was performed using dose optimization techniques as appropriate, various ly including the following: *Automated exposure control *Adjustment of mA an d/or kV according to patient size (this includes techniques or standa rdized protocols for targeted exams where dose is [...] lobe (7:268 and 306) with the largest dilia suring about 2.2 cm. MEDIASTINUM: Some sm all mediastinal lymph nodes are seen measuring 1.0 cm in short axis dimension. CORONARY ARTERY CALCIFICATION: Absent PLEURA: There is no pleural effusion. No pleural mass or thickening. AXILLA/CHEST WALL: T here is a 2.1 x 2.8 x 3.3 cm water density subcutaneous mass, l ikely a sebaceous cyst . No axillary lymphadenopathy. The re is a right chest wall mass measuring 3.8 x 5.5 x 3.8 cm with associat ed destruction of the right third anterolateral rib. There is a subpector al right-sided lymph node present adjacent to the chest wall mass mary uring 1.9 x 1.5 x 2.3 cm (5:20 [...] 11:20 PM [facility] Dictated By: Clarence Block MD Signed By: <Electron icall signed by Clarence Block MD in OV> 03/07/24 2320 DD/ 1849 TD/TT: 03/07/24 1920 Head Of Sales: AMITA XR chest 2V Reviewed date:03/14/2024 05:01:24 AM Interpretation: Performing Lab: Notes/Report: [address] [address] XRay Report Signed Patient: Jaren Up MR#: [id number] 287 : 1945 Acct:[id number] Age/Sex: 79 / M ADM Date: 03/07/24 Loc: [facility] Attending Dr: Ordering Physician: Generic ED Physician Date of Service: 03/07/24 Procedure(s): XR chest 2V Accession Number(s): [id number] cc: Koby Peña MD; Generic ED Physician [...] by: Melvi Wong MD 03/07/2024 04:48 PM [facility] Dictated By: Melvi Wong MD Signed By: <Electronically signed by Melvi Wong MD in OV> 03/07/24 1648 DD/ 1545 TD/TT: 03/07/24 1550 Head Of Sales: [place] [address] XRay Report Signed Patient: Kane Up MR#: [id number] 287 : 1945 Acct:[id number] Age/Sex: 79 / M ADM Date: 03/07/24 Loc: .ED Attending Dr: Ordering Physician: Generic ED Physician Date of Service: 03/07/24 Procedure(s): XR chest 2V Accession Number(s): [id number] cc: Koby Peña MD; Generic ED Physician [...] Dictated By: Melvi Wong MD Signed By: <Yusef rosas signed by Melvi Wong MD in OV> 03/07/24 1648 DD/ 1545 TD/TT: 03/07/24 1550 Head Of Sales: COREY XR shoulder RT min 2V Reviewed date:03/14/2024 05:01:24 AM Interpretation: Performing Lab: Notes/Report: [address] [address] XRay Report Signed Patient: Jaren Up MR#: [id number] 287 : 1945 Acct:[id number] Age/Sex: 79 / M ADM Date: 03/07/24 Loc: [facility].ED Attending Dr: Ordering Physician: Generic ED Physician Date of Service: 03/07/24 Procedure(s): XR shoulder RT min 2V Accession Number(s): [id number] cc: Koby Peña MD; Generic ED Physician [...] 03/07/24 1737 DD/ 1640 TD/TT: 03/07/24 1648 Head Of Sales: DANYA [address] [address] XRay Report Signed Patient: Kane Up MR#: [id number] 287 : 1945 Acct:[id number] Age/Sex: 79 / M ADM Date: 03/07/24 Loc: [facility].ED Attending Dr: Ordering Physician: Generic ED Physician Date of Service: 03/07/24 Procedure(s): XR neeraj ta RT min 2V Accession Number(s): [id number] cc: Koby Peña MD; Generic ED Physician [...] by: Pierce Trevino MD 03/07/2024 05:37 PM [facility] Dictated By: Pierce Trevino MD Signed By: <Electron ically signed by Pierce Trevino MD in OV> 03/07/24 1737 DD/ 1640 TD/TT: 03/07/24 1648 Head Of Sales: DANYA Complete Blood Count Auto Di ff Reviewed date:03/14/2024 05:01:23 AM Interpretation: Performing Lab:[facility], [address] [place] [address] Notes/Report: White Blood Count 9.4 4.8-10.8 X10*3/uL [...] Panel Reviewed date:03/14/2024 05:01:23 AM Interpretation: Performing Lab:[address] [address] Notes/Report: Sodium 142 135-145 mmol/L Potassium 3.8 [...] ONLY Reviewed date:03/14/2024 05:01:23 AM Interpretation: Performing Lab:[address] [address] Notes/Report: Lactic Acid-LAB USE ONLY 1.2 0.5-2.0 mmol/L PSA,Total (Free>4and<10) Reviewed date:03/14/2024 05:01:23 AM Interpretation: Performing Lab:[facility], [address] [place] [address] Notes/Report: PSA,Total (Free>4and<10) 2.51 0.00-4.00 ng/mL A [...] between 4.0 and 10.0 ng/mL. PSA methodology: Omnitrol Networks[employer] i Chemiluminescent Microparticle Immunoassay (CMIA) Pathology (Not yet reviewed by provider) Interpretation: Performing Lab:[facility], [address] [place] [address] Notes/Report: ------ Name: Jaren Up Age/Sex: 79/M : 1945 [facility]#: [id number] Unit#: [id number] Attend Dr: Vasiliy Alvarado MD Re05/05/24 [place] : [facility] [place] [facility] Disch: ------ SPEC : [id number] RECD: 05/05/24 STATUS: KARIN CLIFFORD NUM: [id number] LISA: 05/05/241115 [facility] DR: Huan Barker ENTERED: 05/05/24- 42 SP TYPE: Surgical OTHR DR: Koby Peña MD,Vasiliy PEREZ ORDERED: Gross Micro L3, IHC, Add. immunos/4, CK7, CK20, Gia-3, p40, TTF-1 Diagnosis Right subpectoral/ch est wall mass, needle core biopsy: Metastatic squamous cell carcinoma, moderatel y differentiated, with papillary features, involving skeletal muscle and soft tissue (see comment). COMMENT: The morphol ogic features and immunohistochemical stain profile supports the above diagnosis. Not e is made of the patient's left lower lobe lung mass. Clinical History PET avid right subpe ctoral and chest wall mass Microscopic Description Sections of the core biopsy demonstrate infiltrating solid nests and papillary proliferation with fibrovascular c ores in a desmoplastic stroma, lined by moderately pleomorphic nuclei with prominent nucle tawnya. The immunostains show the tumor cells to be strongly and diffusely positive for p40, pa tchy weak positive for CK7 and GIA-3 while negative for CK20 and TTF-1. The morphologic feat ures and immunohistochemical stain profile support a squamous cell carcinoma. Material Received Right subpectoral/ch est wall mass-6x18 g cores Gross Description Received in formalin labeled ?right side lung bx are several minute to 0.7 cm in greatest dimension irregular shards and thin and delicate cylindrical threads of zheng-white and chase- pink tissue with sca nt blood, submitted in toto in cassettes A1 and A2. CEDS This case was review ed intradepartmentally. Special stains order ed and performed: Immunostains for p40, CK7, CK20, GIA-3, TTF-1 on A1. CONTINUED ON NEXT PAGE ------ Name: Jaren Up Age/Sex: 79/M : 1945 Unit#: [id number] Attend Dr: Vasiliy Alvarado MD Re05/05/24 [place] : [facility] [place] [facility] Disch: ------ SPEC : [id number] RECD: 05/05/24 STATUS: KARIN CLIFFORD NUM: [id number] LISA: 05/05/24-1115 [facility] DR: Huan Barker ENTERED: 05/05/24 42 SP TYPE: Surgical OTHR DR: Koby Peña MD, Pasquale MD ORDERED: Gross Micro L3, IHC, Add. immunos/4, CK7, CK20, Gia-3, p40, TTF-1 Copies To: Koby Peña MD [address] [place] [address] Vasiliy Alvarado MD [facility] [address] [place] [phone] [email or web address] Huan Barker [address] [place] [id number] [email or web address] ------ Signed (signature on file) Promise Benitez MD 05/09/24 0817 ------ END OF REPORT CT biopsy lung RT (Not yet r eviewed by provider) Interpretation: Performing Lab: Notes/Report: [place] [address] CT Scan Report Signed Patient: Jaren Up MR#: [id number] 287 : 1945 Acct:[id number] Age/Sex: 79 / M ADM Date: 05/05/24 Loc: [facility] Attending Dr: Vasiliy Alvarado MD Ordering Physician: Vasiliy Alvarado MD Date of Service: 05/05/24 Procedure(s): CT biopsy lung RT Accession Number(s): [id number] cc: Koby Peña MD; Vasiliy Alvarado MD Report Number: [id number]: Total DLP = 186.00 mGy-cm PET avid right subpectoral mass/lymph node. PROCEDURES: 1. Limited preprocedure CT of the chest. Permanent images saved in PACS. 2. CT-guided biopsy of the right subpectoral 3. Limited postprocedure CT of the chest. Permanent images saved in PACS. CLINICIANS: Huan Barker PA-C MEDICATIONS: -Versed 1 mg, Fentanyl 50 mcg, and lidocaine 1% 10 mL SQ -Antibiotics: None -For additional details, please see nursing flowsheet. COMPLICATIONS: None ESTIMATED BLOOD LOSS: < 5 ml CONTRAST: None SPECIMENS: 6 x 18 g cores were sent for pathology MODERATE SEDATION TIME: 24 min PROCEDURE NOTE: The procedure, risks, benefits, and alternatives were carefully explained to the patient and written informed consent was obtained. The patient was placed supine on the CT table. A timeout was performed. A limited CT of the chest was performed to localize the right-sided pectoral mass/lymph node and choose appropriate needle entry and trajectory. The patient was prepped and draped in usual sterile fashion. The skin and deeper soft tissues were anesthetized with lidocaine. Under CT guidance, a 17-gauge trocar needle was advanced to the right subpectoral mass. An 18 gauge biopsy device was inserted through the trocar needle and advanced into the mass. A total of 6 cores were performed. The specimens were placed in formalin and sent to pathology. The needle was removed. A dry dressing was applied and secured with Tegaderm. There were no immediate complications. The patient was stable after the procedure and was transferred to the post anesthesia care unit. The procedure was done under moderate sedation with a dedicated nurse for monitoring of vital signs. CT/CT biopsy lung RT Impression: CT-guided right subpectoral mass/lymph node biopsy This procedure was performed by Huan Barker PA-C and supervised by Dr. Shirley. Electronically signed by: Oli Shirley MD 05/11/2024 01:47 PM [facility] Dictated By: Huan Barker Signed By: <Electronically signed by Huan Barker in OV> 05/11/24 1347 <Electronically signed by Oli Shirley MD in OV> 05/11/24 1349 DD/ 1041 TD/TT: 05/05/24 1120 Head Of Sales: [place] [address] CT Scan Report Signed Patient: Kane Up MR#: [id number] 287 : 1945 Acct:[id number] Age/Sex: 79 / M ADM Date: 05/05/24 Loc: .[facility] Attending Dr: Maia Tolbert MD Ordering Physician: Vasiliy Alvarado MD Date of Service: 05/05/24 Procedure(s): CT bio psy lung RT Accession Number(s): [id number] cc: Koby Peña MD; Vasiliy Alvarado MD Report Number: [id number]: Total DLP = 186.00 mGy-cm PET avid right subpe ctoral mass/lymph node. PROCEDURES: 1. Limited preproced ure CT of the chest. Permanent images saved in PACS. 2. CT-guided biopsy of the right subpectoral 3. Limited postproce dure CT of the chest. Permanent images saved in PACS. CLINICIANS: Huan Barker PA-C MEDICATIONS: -Versed 1 mg, Fentan yl 50 mcg, and lidocaine 1% 10 mL SQ -Antibiotics: None -For additional deta ils, please see nursing flowsheet. COMPLICATIONS: None ESTIMATED BLOOD LOSS : < 5 ml CONTRAST: None SPECIMENS: 6 x 18 g cores were sent for pathology MODERATE SEDATION TI ME: 24 min PROCEDURE NOTE: The procedure, risks , benefits, and alternatives were carefully explained to the pat ient and written informed consent was obtained. The patient was placed s upine on the CT table. A timeout was performed. A limited CT of the est was performed to localize the right-sided pectoral mass/lymph node and choose appropriate needle entry and trajectory. The deanna ent was prepped and draped in usual sterile fashion. The skin and deeper soft tissues were anesthetized with lidocaine. Under CT guidance, a 17-gauge trocar needle was advanced to the right subpectoral mass. An 18 gauge biopsy device was inserted through the trocar needle and ad vanced into the mass. A total of 6 cores were performed. The speci mens were placed in formalin and sent to pathology. The needle was remov ed. A dry dressing was applied and secured with Tegaderm. There were no immediate complications. The patient was stab le after the procedure and was transferred to the post anesthesia care unit. The procedure was do ne under moderate sedation with a dedicated nurse for monitoring of vi gaurav signs. C T/CT biopsy lung RT Impression: CT-guided right subpectoral mass/lymph node biopsy This procedure was performed by Huan Barker PA-C and supervised by Dr. Shirley. Electronically norah d by: Oli Shirley MD 05/11/2024 01:47 PM EST RP Dictated By: Oscar Barker Signed By: <Yusef rosas signed by Huan Barker in OV> 05/11/24 1347 <Electronically sign ed by Oli Shirley MD in OV> 05/11/24 1349 DD/ 1041 TD/TT: 05/05/24 1120 Head Of Sales: Reason For Referral Reason Evaluate and Treat Diagnosis 1 Right shoulder pain (M25.511) Referral Organization Koby Peña III, MD Referring Provider First Name Koby Referring Provider Last Name Casey Referring Provider Speciality Internal M edicine Referred Provider [facility] Referred Provider Specialty Orthopedic S urgery General Notes DColleen 03/21/2024 03:51:49 PM > Faxed referral and progress note.Christel Amber 05/05/2024 03:57:09 PM > patient stated that his right shoulder pain was getting better and is holding off on seeing [facility] Orthopedics. Patient stated he spoke with Dr. Peña regarding this. Referral Priority Routine Medications Medication SIG (Take, [...] Problem Status W/U Status Risk Notes Problem 3580223 Former smoker (Z87.891) Active confirmed He seems motivated not to smoke. We formulated a plan to prevent relapse in time to stress and illness. Problem 545129376 Overweight (E66.3) Active confirmed He has gained 2 pounds. His body mass index is 29. We made a plan to lose weight at a rate of one half of a pound per week Problem 34437470 Allergy to sulfa drugs (Z88.2) Active confirmed Problem 998805555 Mixed hyperlipidemia (E78.2) Active confirmed His lipids are currently stable and no change in his regimen as necessary. Problem 383906986 Low back pain (M54.5) Active confirmed He has had surgery on his lumbar spine for degenerative disc disease and impingement of the left L5 nerve root at the foramen. Problem COPD - Chronic obstructive pulmonary disease (82643856) COPD (chronic obstructive pulmonary disease) (J44.9) Active confirmed He had a re cent hospitalization for respiratory failure. He is doing well now with prednisone. 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 He is comfortable at rest or with prolonged exertion becomes dyspneic and tachycardic. He is no longer smoking. 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 He has recovered from that. Problem 345281853 History of iron deficiency anemia (Z86.2) Active confirmed His iron deficiency anemia has resolved. He has not noticed any bleeding. He is compliant with his treatment. His ferritin is 86. Problem 773598512 Primary osteoarthritis of both knees (M17.0) Active confirmed He has had knee surgery. He will continue on current therapy and be monitored carefully. Problem 31382551 Pulmonary emphysema, unspecified emphysema type (J43.9) Active confirmed His lung diseas e is stable. He is no longer smoking. He is short of breath with exertion but not during the course of daily life. Problem 057369073 Rib lesion (M89.9) Active confirmed A CT [...] pulmonary neoplasm. His PSA is normal. Problem 4415947956138 Benign prostatic hyperplasia with lower urinary tract symptoms (N40.1) Active confirmed He rises from sleep once and sometimes twice a night. He had no nodules in his prostate. We discussed modifications to his lifestyle he could make to reduce nocturia. Problem 852552296 Pulmonary neoplasm (D49.1) Active confirmed He has laurie ral abnormal masslike densities in the left lower lobe and destruction of the right third rib. A needle biopsy of the rib mass has been ordered under CT guidance. Problem 49392107 ASHD (arterioscleroti c heart disease) (I25.10) Active confirmed He denies any recent angina palpitations or syncope. Current therapy was continued. 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 Problem 825489912 Compression fracture of L1 vertebra, initial encounter [...] Date Provider Diagnosis Koby Peña III, MD [address] [place] [address] [place] [address] 08/11/2023 Koby Peña Mixed hyperlipidemia E78.2 ; Benign prostatic hyperplasia with lower urinary tract symptoms N40.1 ; Overweight E66.3 ; COPD (chronic obstructive pulmonary disease) J44.9 ; Pulmonary emphysema, unspecified emphysema type J43.9 ; ASHD (arteriosclerotic heart disease) I25.10 ; History of iron deficiency anemia Z86.2 and Primary osteoarthritis of both knees M17.0 Koyb Peña III, MD [address] [place] [address] [place] [address] 12/03/2023 Koby Peña Mixed hyperlipidemia E78.2 ; Benign prostatic hyperplasia with lower urinary tract symptoms N40.1 ; COPD (chronic obstructive pulmonary disease) J44.9 ; Pulmonary emphysema, unspecified emphysema type J43.9 ; ASHD (arteriosclerotic heart disease) I25.10 ; Primary osteoarthritis of both knees M17.0 ; Overweight E66.3 and Former smoker Z87.891 Koby Peña III, MD [address] [place] [address] [place] [address] 03/17/2024 Koby Peña Mixed hyperlipidemia E78.2 ; [...] Pulmonary neoplasm D49.1 Koby Peña III, MD [address] [place] [address] [place] [address] 03/31/2024 Koby Peña Mixed hyperlipidemia E78.2 ; Pulmonary emphysema, unspecified emphysema type J43.9 ; Rib lesion M89.9 ; COPD (chronic obstructive pulmonary disease) J44.9 ; Primary osteoarthritis of both knees M17.0 ; ASHD (arteriosclerotic heart disease) I25.10 ; Former smoker Z87.891 ; Benign prostatic hyperplasia with lower urinary tract symptoms N40.1 and Overweight E66.3 Koby Peña III, MD [address] [place] [address] [place] [address] 03/14/2024 Koby Peña III, MD [address] [place] [address] [place] [address] 03/15/2024 Koby Peña III, MD [address] [place] [address] [place] [address] 03/22/2024 Koby Peña III, MD [address] [place] [address] DR [place], [place] [address] 04/11/2024 Koby Peña Assessments Encounter Date Diagnosis (ICD Code) Assessment Notes Treat ment Notes Treatment Clinical Notes 08/11/2023 Mixed hyperlipidemia (ICD-10 - E78.2) His [...] during the course of daily life. 08/11/2023 Overweight (ICD-10 - E66.3) He has [...] This was continued until he sees his event specialist food demonstrator. He is comfortable at rest or with [...] a pulmonary neoplasm. His PSA is normal. 08/11/2023 COPD (chronic obstructive pulmonary disease) (ICD-10 [...] This was continued until he sees his event specialist food demonstrator. He is comfortable at rest or with prolonged exertion becomes dyspneic and tachycardic. He is no longer smoking. 08/11/2023 Pulmonary emphysema, unspecified emphysema type (ICD-10 [...] current therapy and be monitored carefully. 08/11/2023 ASHD (arteriosclerotic heart disease) (ICD-10 - [...] or syncope. Current therapy was continued. 08/11/2023 History of iron deficiency anemia (ICD-10 [...] 08/11/2023 Lipid Panel 05/13/2023 Alkaline Phosphatase Isoenzyme Pathology 05/05/2024 CT biopsy lung RT 05/05/2024 Next Appt Details Provider Name:Koby Peña, 05/17/2024 09:00:00 AM, [address] [place] [address] [address], [place], [address], Provider Name:Koby Casey, 12/02/2024 10:00:00 AM, [address] [place] [address] [address], [place], [address], Insurance Providers Payer Name Payer Address Payer Phone Subscriber Number Group Number Insured Name Patient Relationship to Insured Coverage Start Date Coverage End Date MEDICARE NGS [address] [facility] [place] [id number] Jaren Up Self - patient is the insured [facility] [address] [place], [place] [id number] Jaren Up Self - patient is [...] Upper endoscopy and colonosc opy, Dr. Montague, [facility], for iron deficiency anemia 04/2018 lumbar spine fusion, [facility] 2016 Partial left medial meniscec geovani and debridement, Dr. Armand Milner, [facility] 03/2010 Incomplete colonoscopy, [facility], Dr. Mo, severe sigmoid diverticulosis 01/2010 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 De León 03/2009 Bronchoscopy for interstitial pneumonia, [facility] 07/2007 bilateral knee replacements fracture right arm age 18 1963 Hospitalization History Reason Date(Month/Year) No history Hospitalized for five days d ue to respiratory distress and shoulder injury.
--- OUTSIDE RECORDS SUMMARY | 2024-05-16 10:32 | XMS_ITS ---
Author Organization Koby Peña III, MD Address [address] [address] Care Team Providers Care Sql Server Architect Name Role Phone Koby Peña Primary Care Provider REASON FOR VISIT Message Social History Sex Assigned At : Social History Observation Description Sex Assigned At Male Encounters Encounter Location Date Provider Diagnosis Koby Peña III, MD [address] [place] [address] [place] [address] 04/11/2024 Koby Peña Plan Of Treatment Next Appt Details Provider Name:Koby Peña, 05/17/2024 09:00:00 AM, [address] [place] [address] [place], [address], Provider Name:Koby Peña, 12/02/2024 10:00:00 AM, [address] [place] [address] [place], [address], Progress Notes * Jaren CANELA EDOB:[birth year] (79 yo M)Acc No.[id number]:04/11/2024 Patient:?Jaren CANELA :1945???Age:79 Y???Sex:Male Address:[address] [facility] [place] [address] * true * Date:? Generated for Printi ng/Faxing/eTransmitting on:?05/16/2024 10:32 AM EST
--- OUTSIDE RECORDS SUMMARY | 2024-05-16 10:32 | XMS_ITS | Patient Health Record ---
Author Organization [facility] Moreliaray Craven Address [address] [place] [address] Care Team Providers Care Incident Engineer Name Role Phone Koby Peña MD Primary Care Provider UnavailMelquiades Vargas Unavailable [phone] Allergies Allergen (clinical drug ingredient) Drug/Non Drug [...] Start Date Coverage End Date Medicare [facility] [address] [place] [address] [id number] Jaren Up Self - patient is the insured [employer] [address] [place] [address] [id number] Jaren Up Self - patient is the insured Medical (General) History Medical History History ICD Code Broken bones Heart disease Lung disease Measles Joint implants/screws Surgical History Surgery Date(Month/Year) back fusion 2016 left hip replacement 2017 right hip 2018 testicular tumor removal 1971 hernia? 1960
--- OUTSIDE RECORDS SUMMARY | 2024-05-16 10:33 | XMS_ITS | Clinical Summary ---
Author Organization [facility] Address [address] [place] [address] Phone Care Team Providers Care Apron Trimmer Name Role Phone Unavailable Primary Care Provider Unavailabl e Encounters Date Type Department Care Team Description 03/28/2024 9:02 AM EST - 03/28/2024 11:59 PM EST Hospital Encounter [facility] PET Scan [address] [place] [address] Other nonspecific abnormal finding of lung field Discharge Disposition: Home or Self Care from Last 3 Months Social History Tobacco Use Types Packs/Day Years Used Date Smoking Tobacco: Never Assessed Sex and Gender Information Value Date Recorded Sex Assigned at Not on file Legal Sex Male 9:55 PM EST Gender Identity Not on file Sexual Orientation Not on file Plan of Treatment Health Maintenance Due Date Last Done Comments DTaP,Tdap,and Td Vaccines (1 - Tdap) 1952 Pneumococcal Vaccine: 50+ Ye ars (1 of 1 - PCV) 01/02/1996 Zoster Vaccines (1 of 2) 01/02/1996 RSV Immunization Patients 60 + Years Old (1 - 1-dose 75+ series) 2021 COVID-19 Vaccine ( - 2023-2 5 season) 2023 Influenza Vaccine (#1) 2023 Cholesterol Screening (Lipid Panel) 03/25/2024 Depression Screening 03/25/2024 Falls Risk Assessment 03/25/2024 Hepatitis C Screening 03/25/2024 Medicare Annual Wellness Visit 03/25/2024 Social Influencers of Health Screening 03/25/2024 HIB Vaccines Aged Out No longer eligi ble based on patient's age to complete this topic HPV Vaccines Aged Out No longer eligi ble based on patient's age to complete this topic Hepatitis A Vaccines Aged Out No long er eligible based on patient's age to complete this topic Hepatitis B Vaccines Aged Out No long er eligible based on patient's age to complete this topic IPV Vaccines Aged Out No longer eligi ble based on patient's age to complete this topic MMR Vaccines Aged Out No longer eligi ble based on patient's age to complete this topic Meningococcal ACWY Vaccine Aged Out N o longer eligible based on patient's age to complete this topic Meningococcal B Vacine Aged Out No lo nger eligible based on patient's age to complete this topic RSV Immunization Patients Un rosales 20 months Aged Out No longer eligible b ased on patient's age to complete this topic Varicella Vaccines Aged Out No longer eligible based on patient's age to complete this topic Procedures Procedure Name Priority Date/Time Associated Diagnosis Comments PET CT SKULL TO MID THIGH INITIAL Routine 03/28/2024 11:08 AM EST Other nonspecific abnormal finding of lung field from Last 3 Months Results * PET CT Skull to Mid Thigh Initial (03/28/2024 11:08 AM EST) Anatomical Region Laterality Modality Body Radiographic Mya ging 03/28/2024 11:0 6 AM EST Impressions 03/29/2024 10:06 AM EST 1. ??Destructive right chest wall mass with associated subpectoral lymph node demonstrating FDG activity concerning for malignancy 2. ??6 mm pulmonary nodule in the left upper lobe which may represent metastatic disease 3. ??Mildly FDG avid mediastinal and right hilar lymph nodes not increased from blood pool 4. ??FDG activity involving the anterior right fifth rib and right humerus which may represent posttraumatic appearance Please note: The CT was acquired at a low radiation dose settings. ??The images are of nondiagnostic quality and used solely for purposes of attenuation correction and slice localization for the PET scan. ??If a diagnostic CT study is desired it must be ordered separately. -------- FINAL REPORT -------- Dictated By: Linda Klein Dictated Date: 03/28/2024 11:06 ET Assigned Physician: Linda Klein Reviewed and Electronically Signed By: Linda Klein Signed Date: 03/29/2024 10:06 ET Workstation ID: [id number] Transcribed By: Self Edit Transcribed Date: 03/28/2024 11:30 ET Narrative 03/29/2024 10:06 AM EST INDICATION: Outside chest CT demonstrating destructive right chest wall mass with involvement of the third rib as well as masslike areas in the left lower lobe and L1 compression fracture. TECHNIQUE: FDG PET-CT imaging was performed from the skull bases through the thighs in a single acquisition with data set reconstructed in axial, coronal, and sagittal planes at the computer workstation with fused data from both the PET imaging study and attenuation correction CT. The CT portion of the examination was done strictly for attenuation correction and is not a true diagnostic CT examination. DLP: ??1399 mGy-cm Radiopharmaceutical: 11.8 mCi of F-18 FDG IV. Blood glucose: 89 mg/dl. COMPARISON: Correlation is made with outside chest CT dated March 2024 FINDINGS: HEAD AND NECK: No abnormal FDG activity. ??Bilateral FDG activity involving the mucosal pharyngeal space is likely physiologic. ??Asymmetric FDG activity involving the right base of the tongue SUV max 4.8; nonspecific. THORAX: Destructive right chest wall mass with subjacent subpectoral lymph node SUV max 17.4 centered at the right third rib. ??6 mm pulmonary nodule in the left upper lobe SUV max 2.5. Right paratracheal lymph node SUV max 2.2, prevascular lymph node SUV max 2.3, right hilar lymph nodes SUV max 2.9 (mediastinal blood pool SUV Max 3.0), subcarinal lymph node SUV max 2.1, paraesophageal lymph nodes SUV max 1.5. Emphysematous changes with pulmonary fibrosis SUV Max 2.4. Hiatal hernia SUV max 6. ??19 x 30 mm low-attenuation lesion along the right anterior thorax in the subcutaneous soft tissues without significant FDG activity SUV max 0.9 likely representing a sebaceous cyst. ABDOMEN/PELVIS: No FDG avid abdominal or pelvic lymphadenopathy. ??Prostate gland SUV max 3.1. MUSCULOSKELETAL: Focal FDG activity involving the anterior right fifth rib SUV max 3.7 with associated cortical deformity in keeping with rib fracture. ??Focal deformity and associated FDG activity involving the right humerus SUV max 5.6 in keeping with posttraumatic appearance. Bilateral hip replacements. ??Lumbar fusion hardware. ??Compression fracture of L1 and deformity of the superior endplate of L5. Procedure Note Linda Klein MD - 03/29/2024 INDICATION: Outside chest CT demonstrating destructive right chest wallmass with involvement of the third rib as well as masslike areas in theleft lower lobe and L1 compression fracture. TECHNIQUE: FDG PET-CT imaging was performed from the skull bases throughthe thighs in a single acquisition with data set reconstructed in axial,coronal, and sagittal planes at the computer workstation with fused datafrom both the PET imaging study and attenuation correction CT. The CTportion of the examination was done strictly for attenuation correctionand is not a true diagnostic CT examination. DLP: 1399 mGy-cm Radiopharmaceutical: 11.8 mCi of F-18 FDG IV. Blood glucose: 89 mg/dl. COMPARISON: Correlation is made with outside chest CT dated March2024 FINDINGS: HEAD AND NECK: No abnormal FDG activity. Bilateral FDG activity involvingthe mucosal pharyngeal space is likely physiologic. Asymmetric FDGactivity involving the right base of the tongue SUV max 4.8;nonspecific. THORAX: Destructive right chest wall mass with subjacent subpectoral lymphnode SUV max 17.4 centered at the right third rib. 6 mm pulmonary nodulein the left upper lobe SUV max 2.5. Right paratracheal lymph node SUV max 2.2, prevascular lymph node SUV max2.3, right hilar lymph nodes SUV max 2.9 (mediastinal blood pool SUV Max3.0), subcarinal lymph node SUV max 2.1, paraesophageal lymph nodes SUVmax 1.5. Emphysematous changes with pulmonary fibrosis SUV Max 2.4. Hiatal hernia SUV max 6. 19 x 30 mm low-attenuation lesion along theright anterior thorax in the subcutaneous soft tissues without significantFDG activity SUV max 0.9 likely representing a sebaceous cyst. ABDOMEN/PELVIS: No FDG avid abdominal or pelvic lymphadenopathy. Prostategland SUV max 3.1. MUSCULOSKELETAL: Focal FDG activity involving the anterior right fifth ribSUV max 3.7 with associated cortical deformity in keeping with ribfracture. Focal deformity and associated FDG activity involving the righthumerus SUV max 5.6 in keeping with posttraumatic appearance. Bilateral hip replacements. Lumbar fusion hardware. Compression fractureof L1 and deformity of the superior endplate of L5. IMPRESSION: 1. Destructive right chest wall mass with associated subpectoral lymphnode demonstrating FDG activity concerning for malignancy 2. 6 mm pulmonary nodule in the left upper lobe which may representmetastatic disease 3. Mildly FDG avid mediastinal and right hilar lymph nodes not increasedfrom blood pool 4. FDG activity involving the anterior right fifth rib and right humeruswhich may represent posttraumatic appearance Please note: The CT was acquired at a low radiation dose settings. The images are ofnondiagnostic quality and used solely for purposes of attenuationcorrection and slice localization for the PET scan. If a diagnostic CTstudy is desired it must be ordered separately. -------- FINAL REPORT -------- Dictated By: Linda Klein Dictated Date: 03/28/2024 11:06 ET Assigned Physician: Linda Klein Reviewed and Electronically Signed By: Linda Klein Signed Date: 03/29/2024 10:06 ET Workstation ID: [id number] Transcribed By: Self Edit Transcribed Date: 03/28/2024 11:30 ET Mary Jo Pearljwa [facility] Final Result from Last 3 Months Insurance MEDICARE [facility]
--- OUTSIDE RECORDS SUMMARY | 2024-05-16 10:33 | XMS_ITS ---
Author Organization Koby Peña III, MD Address [address] [place] [address] [address] [place] [address] Care Team Providers Care Insole Channeler Name Role Phone Koby Peña Primary Care Provider [phone] Allergies Allergen (clinical drug ingredient) Drug/Non Drug [...] Date Provider Diagnosis Koby Peña III, MD [address] [place] [address] [place] [address] 04/04/2024 Koby Peña Mixed hyperlipidemia E78.2 and [...] Inhalation Next Appt Details Provider Name:Koby Peña, 05/17/2024 09:00:00 AM, [address] [place] [address] [address], [place], [address], Provider Name:Koby Peña, 12/02/2024 10:00:00 AM, [address] [place] [address] [address], [place], [address], Progress Notes * Jaren CANELA EDOB:[birth year] (79 yo M)Acc No.[id number]:04/04/2024 Progress Notes Patient:?ROLA Jaren Maddy Provider:?Koby Peña MD :1945???Age:79 Y???Sex:Male Rey e:04/04/2024 Address:[address] [place] [address] [id number] Subjective: * Chief Complaints: * ???1. Follow up. * HPI: ???COVID-19 Screening:?Questions?Have you had any new onset fever, chills, cough, congestion, sore throat, shortness of breath, muscle aches??No * ROS:?General/Constitutional:?pain?only normal aches and pains.?Chills?denies.?Fatigue?admits.?Fever?denies.?ENT:?Decreased hearing?denies.?Respiratory:?Cough?denies.?Cardiovascular:?Chest pain with exertion?denies.?Dyspnea on exertion?denies.?Shortness of breath?denies.?Gastrointestinal:?Constipation?denies.?Decreased appetite?denies.?Diarrhea?denies.?Heartburn?denies.?Nausea?denies.?Rectal bleeding?denies.?Vomiting?denies.?Hematology:?bruising?denies.?petechiae?denies.?Swollen glands?none have been noted.?Genitourinary:?Frequent urination?denies.?Musculoskeletal:?Muscle aches?denies.?Painful joints?denies.?Sciatica?denies.?Weakness?denies.?Skin:?Itching?denies.?Rash?denies.?Skin lesion(s)?denies.?Neurologic:?Difficulty speaking?denies.?Dizziness?denies.?Headache?denies.?Low back pain?denies.?Psychiatric:?Depressed mood?denies.? * Medical History:?Hyperlipide yo, COPD by 2015 PFTs, Obesity, 2008 interstitial pneumonia: Karma albicans [...] knee replacements , Bronchoscopy for interstitial pneumonia, [facility] 07/2007, Direct laryngoscopy with biopsy of paralyzed left vocal cord, Dr. De León 03/2009, Incomplete colonoscopy, [facility], Dr. Mo, severe sigmoid diverticulosis 01/2010, Partial left medial meniscectomy and debridement, Dr. Armand Milner, [facility] 03/2010, lumbar spine fusion, [facility] 2016, Upper endoscopy and colonoscopy, Dr. Montague, [facility], for iron deficiency anemia 04/2018, No history [...] Tobacco Non-User?Ex-cigarette smoker ???He was born in [facility]. 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 He has had no toxic exposures. He has no muslim objections to blood transfusion. He lives in [place] with his sister. * Medications:?Taking Incruse Ellipta [...] Provider:?Koby Peña MD Date:?03/08 Generated for Elisabeth andersen/Dina/eTransmitting on:?05/16/2024 10:32 AM EST History and Physical Notes * [...]
== END 2024-05-16 10:00 | disposition home or self-care (01) ==
PROVIDERS: PCP Internal Medicine Medical Oncology; Visit Provider Surgery
DX: R91.8 Other nonspecific abnormal finding of lung field (principal)
CPT/HCPCS: 99214

== ENCOUNTER → 2024-05-16 09:45 | Outpatient (BNVA) | payer MEDICARE, SELFPAY | PROVIDERS: PCP Internal Medicine Medical Oncology; Visit Provider Surgery | DX: C77.3 Secondary and unspecified malignant neoplasm of axilla and upper limb lymph nodes (principal); R91.8 Other nonspecific abnormal finding of lung field | CPT/HCPCS: 99212 ==

== ENCOUNTER 2024-06-06 10:17 | Outpatient (AMB) | payer MEDICARE, SELFPAY ==
[2024-06-06 10:25] VITALS: BP 110/62; PULSE 103; O2SAT 93; BMI 28.4
--- NOTE | 2024-06-06 10:25 | A.OFFVIS_ITS ---
Vital Signs 06/06/24 10:25 Height 6 ft Weight 209 lb 7.026 oz BMI 28.4 BP 110/62 Blood Pressure Location Lt brachial Position Sitting Pulse 103 H Pulse Source Pulse Oximeter Pulse Oximetry (%) 93 Oxygen Delivery Method Room Air Intake Visit Reasons: COPD Intake Note: pt is here for follow up and is interested in POC and also handicap placard. not feeling bad at all, he is being treated down at [facility], Dr Perdue Allergies Penicillins [PENICILLINS] Allergy (Intermediate, Verified 06/06/24 10:44) SWELLING Sulfa (Sulfonamide Antibiotics) [Sulfa (Sulfonamides)] Allergy (Mild, Verified 06/06/24 10:44) RASH Medication List - Last Reconciled 06/06/24 by Mary Jo Mckeon MD albuterol sulfate 90 mcg/actuation 2 puffs PO Q4H PRN Breo Ellipta 200-25 mcg/dose (fluticasone furoate-vilanterol) 1 ea PO DAILY NS Incruse Ellipta 62.5 mcg/actuation (umeclidinium) 1 inh PO DAILY NS lidocaine 5% 1 patch topical DAILY multivitamin (Daily Multi-Vitamin tablet) 1 tab PO DAILY pravastatin 80 mg PO BEDTIME [prednisone 5 mg PO DAILY] Do you need a note to return to daycare/school/sports/work: No HPI HPI COPD: Details: 79 years old gentleman with longstanding chronic obstructive pulmonary disease due to his previous smoking, Now recently diagnosed to have 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 He has seen the oncologist at [facility], but not started on chemotherapy yet. He states that he does not have much pain in the chest wall from the previous broken ribs He claims that breathing saenz he is very stable. He has only. Mild shortness of breath and cough He has O2 concentrator at home but uses only p.r.n. However for outdoors he does not want to come out with heavy cylinders, he likes to get the POC . He is also enquiring about if he can get handicap plaque for his car. [facility] Medical History COPD exacerbation Upper respiratory infection COPD (chronic obstructive pulmonary disease) Surgical History Hx of surgical procedure (05/05/24) History of arthroscopy of left knee History of back surgery History of total replacement of both hip joints Social History Household Members: None Housing: House Do you presently have visiting nurse or other home services: No Alcohol intake: current Alcohol intake frequency: a few times a month Alcohol type: beer Patient Tobacco Use Status: Former Tobacco user service: Yes Review of Systems Const All systems reviewed & are unremarkable except as noted in HPI and below Eyes Reports no additional complaints ENT Reports no additional complaints Card Denies chest pain, Denies irregular heart rhythm and Denies leg edema Resp Reports as per HPI GI Reports no additional complaints Reports no additional complaints Musc Reports back pain (mild , if he does any physical work .) Skin/Breast Reports system reviewed and no additional complaints, except as documented Neuro Reports no additional complaints Physical Exam Vital Signs: Last Vital Signs Pulse 103 H 06/06/24 10:25 BP 110/62 06/06/24 10:25 Pulse Ox 93 06/06/24 10:25 Oxygen Delivery Method Room Air 06/06/24 10:25 BMI result Body Mass Index 28.4 Const General: comfortable, no acute distress, alert and awake Orientation/consciousness: patient oriented x3 HEENT Head: Yes normal to inspection General nose exam: No nasal polyps present, No nasal discharge present and Other nasal findings present (He does have mild nasal congestion) Face and sinus: Yes sinuses nontender Mouth: oropharynx normal Throat: Yes posterior oropharynx normal and Yes posterior oropharynx abnormal (Slightly erythema) Eyes General: appearance normal, both eyes and all related structures Neck Neck: Yes normal visual inspection, Yes no lymphadenopathy, Yes trachea midline and Yes no JVD Thyroid: Thyroid normal Chest Chest palpation & inspection: normal inspection of the chest, normal palpation of entire chest wall and no tenderness (THERE IS NO LOCALIZED TENDERNESS OF THE RIGHT CHEST WALL) Resp Other: Percussion note is resonant, breath sounds are very distant with prolonged expiratory phase. TODAY HE DOES NOT HAVE ANY AUDIBLE WHEEZES OR RHONCHI. Cardio Palpation: normal PMI Rate: regular rate Rhythm: regular rhythm Heart sounds: no gallops and no murmurs GI Palpation (GI): Soft to palpation, nontender, No hepatosplenomegaly present and no masses Auscultation: normal bowel sounds Back/Spine/Pelvis Thoracic/Lumbar Spine: thoracic and lumbar spine normal to inspection and thoraco-lumbar ROM limited Skin General skin exam: no rashes or lesions noted Neuro General: patient oriented x3 and no focal motor deficits Cranial nerves: Yes CN's II-XII intact bilaterally Extrem General: Yes normal to inspection, Yes no clubbing, cyanosis or edema and Yes no calf tenderness Psych Appearance: grossly normal and well kempt Speech and movement: Normal speech and movement present Assessment & Plan Assessment & Plan (1) COPD (chronic obstructive pulmonary disease): Comment: Patient does have chronic obstructive pulmonary disease, moderately severe and seem to be well controlled at this time Code(s): J44.9 - Chronic obstructive pulmonary disease, unspecified Category: Medical Plan: Continue using Breo Ellipta 200-25 1 inhalation daily Incruse Ellipta 1 inhalation daily Albuterol HFA 2 puffs Q 6 hours p.r.n. Patient also takes prednisone 5 mg daily ( which has been started by his primary care physician and advised to keep on taking (2) Lung mass: Comment: A FEW NODULAR DENSITIES NOTED IN THE LEFT LOWER LOBE THE LARGER BEING 2.2 CMs RECENTLY DIAGNOSED TO HAVE A MASS IN THE RIGHT LOWER LOBE, WITH METASTATIC FRACTURES OF 3 RIBS. PERCUTANEOUS NEEDLE BIOPSY HAS PROVEN TO BE SQUAMOUS CELL CARCINOMA. Code(s): R91.8 - Other nonspecific abnormal finding of lung field Category: Surgical Plan: PATIENT IS SEEING ONCOLOGIST AT [facility] AND FURTHER WORKUP IS STILL IN PROGRESS. (3) Acute hypoxemic respiratory failure: Comment: In the hospital he was found to have hypoxemia, He was sent home on oxygen. But since he has been home he does not feel like using the O2. He does have stationary concentrator as well as cylinders for portable O2, but he say is he does not feel like using. Code(s): J96.01 - Acute respiratory failure with hypoxia Category: Medical Plan: PATIENT WAS ADMITTED TO THE HOSPITAL WITH ACUTE HYPOXEMIC RESPIRATORY FAILURE . HE WAS DISCHARGED HOME ON O2 CONCENTRATOR AND PORTABLE CYLINDERS. NOW USING O2 ONLY P.R.N. AT HOME AND DOES NOT COME OUT WITH PORTABLE. CYLINDERS COMPLAINING THAT THEY ARE TOO HEAVY Plan PATIENT WOULD BE CHECKED WITH 6 MINUTES WALK TEST TO SEE IF HE NEEDS PORTABLE AND THEN ALSO TO BE CHECKED IF HE QUALIFIES FOR O2 CONSERVING UNIT. PATIENT NEEDS THE SPIROMETRY OR PFT TO DETERMINE IF HE QUALIFIES FOR HANDICAP [place]QUE. Coding Level of Care Code Est Pt Level 3 (75509) Diagnoses COPD (chronic obstructive pulmonary disease) J44.9 Lung mass R91.8 Acute hypoxemic respiratory failure J96.01
--- OUTSIDE RECORDS SUMMARY | 2024-06-06 11:50 | XMS_ITS | Patient Health Record ---
Author Organization [facility] [address] Address [address] [place] [address] Care Team Providers Care Pulp Tester Name Role Phone Koby Peña MD Primary Care Provider UnavailMelquiades Vargas Unavailable [phone] Allergies Allergen (clinical drug ingredient) Drug/Non Drug [...] Start Date Coverage End Date Medicare [employer] [facility] [employer] [address] [place] [address] [id number] Jaren Up Self - patient is the insured [employer] [address] [place] [address] [id number] Jaren Up Self - patient is the insured Medical (General) History Medical History History ICD Code Broken bones Heart disease Lung disease Measles Joint implants/screws Surgical History Surgery Date(Month/Year) back fusion 2016 left hip replacement 2017 right hip 2018 testicular tumor removal 1971 hernia? 1960
--- OUTSIDE RECORDS SUMMARY | 2024-06-06 11:51 | XMS_ITS ---
Author Organization Koby Peña III, MD Address [address] [place] [address] Care Team Providers Care Supervisor [facility] Name Role Phone Koby Peña Primary Care Provider REASON FOR VISIT Message Social History Sex Assigned At : Social History Observation Description Sex Assigned At Male Encounters Encounter Location Date Provider Diagnosis Koby Peña III, MD [address] [place] [address] [place] [address] 04/11/2024 Koby Peña Plan Of Treatment Next Appt Details Provider Name:Koby Peña, 06/14/2024 09:45:00 AM, [address] [place] [address] [place], [address], Provider Name:Koby Peña, 12/02/2024 10:00:00 AM, [address] [place] [address] [place], [address], Progress Notes * Jaren CANELA EDOB:[birth year] (79 yo M)Acc No.[id number]:04/11/2024 Patient:?Jaren CANELA :1945???Age:79 Y???Sex:Male Address:[address] [place] [place] [address] * true * Date:? Generated for Printi ng/Faxing/eTransmitting on:?06/06/2024 11:50 AM EST
--- OUTSIDE RECORDS SUMMARY | 2024-06-06 11:51 | XMS_ITS ---
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 Name Role Phone Koby Peña Primary Care Provider Allergies Allergen (clinical drug ingredient) Drug/Non Drug Allergy documented on EMR Reaction Allergy Type Onset Date Status Penicillin Unknown Drug Allergy Active Substance with sulfonamide structure and antibacterial mechanism of action (substance) Sulfa Antibiotics Unknown Drug Allergy Active Reason For Referral Reason evaluate and treatme nt stage 4 non small cell lung cancer Diagnosis 1 Pulmonary neoplasm ( D49.1) Referral Organization Koby Peña III, MD Referring Provider First Name Koby Referring Provider Last Name Casey Referring Provider Speciality Internal M edicine Referred Provider JESSICA LINARES Referred Provider Specialty Hematology/O ncology General Notes Glo Garcia CMA 05/18 10:14:30 AM >pt called stated Dr Alvarado made him an appt with Dr Linares for 05/23/2024 and he will keep our office posted and ask Dr Linares to send to us records of his treatments Referral Priority Routine Referral Appointment Date 05/23/2024 REASON FOR VISIT 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, Pain right rib, Severe emphysema, COPD, Coronary artery disease Medications Medication SIG (Take, Route, Frequency, Duration) Notes Start Date End Date Status Incruse Ellipta 62.5 MCG/INH INHALE 1 PUFF BY MOUTH DAILY Inhalation Active Albuterol Sulfate HFA 108 (90 Base) MCG/ACT Inhalation Active Breo Ellipta 200-25 MCG/INH Inhalation Active predniSONE 10 MG 1 tablet Orally Once a day 03/17/2024 Active Pravastatin Sodium 80 MG 1 tablet [...] Points 0 Interpretation Negative Vital Signs Temperature 98.8 degrees Fahrenheit 05/17/19 25 Blood pressure systolic 131 mm Hg 05/17/19 25 Blood pressure diastolic 78 mm Hg 025 Heart Rate 91 /min 05/17/2024 Height 72 in 05/17/2024 Weight 211 lbs 05/17/2024 BMI 28.61 kg/m2 05/17/2024 Oximetry 98 % 05/17/2024 Encounters Encounter Location Date Provider Diagnosis Koby Peña III, MD [address] [place] [address] [place] [address] 05/17/2024 Koby Peña Metastatic non-small cell lung cancer C34.90 ; COPD (chronic obstructive pulmonary disease) J44.9 ; Pulmonary emphysema, unspecified emphysema type J43.9 ; Mixed hyperlipidemia E78.2 ; ASHD (arteriosclerotic heart disease) I25.10 ; Positive PPD R76.11 ; History of torn meniscus of left knee Z87.828 ; Former smoker Z87.891 ; Overweight E66.3 and Compression fracture of L1 vertebra, initial encounter S32.010A Assessments Encounter Date Diagnosis (ICD Code) Assessment Notes Treat ment Notes Treatment Clinical Notes 05/17/2024 Metastatic non-small cell lung cancer (ICD-10 - C34.90) The primary left lower lobe tumor has spread to the right ribs. Biopsy shows squamous cell carcinoma. Genetic testing is not available at this time. I referred him to medical oncology with a diagnosis of stage IV squamous cell carcinoma lung. 05/17/2024 COPD (chronic obstructive pulmonary disease) (ICD-10 - J44.9) He had a recent hospitalization for respiratory failure. He is doing well now with prednisone. This was continued until he sees his cad application support specialist. He is comfortable at rest or with prolonged exertion becomes dyspneic and tachycardic. He is no longer smoking. 05/17/2024 Pulmonary emphysema, unspecified emphysema type (ICD-10 - J43.9) His lung disease is stable. He is no longer smoking. He is short of breath with exertion but not during the course of daily life. 05/17/2024 Mixed hyperlipidemia (ICD-10 - E78.2) His lipids are currently stable and no change in his regimen as necessary. 05/17/2024 ASHD (arteriosclerotic heart disease) (ICD-10 - I25.10) He denies any recent angina palpitations or syncope. Current therapy was continued. 05/17/2024 Positive PPD (ICD-10 - R76.11) History obtained from old records shows he was PPD +1973. It is not clear if he was ever treated. He has never had clinical TB. Some years ago he developed an interstitial infiltrate in his lung and was hospitalized. 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 He has recovered from that. 05/17/2024 History of torn meniscus of left knee (ICD-10 - Z87.828) 05/17/2024 Former smoker (ICD-10 - Z87.891) He seems motivated not to smoke. We formulated a plan to prevent relapse in time to stress and illness. 05/17/2024 Overweight (ICD-10 - E66.3) He has gained 2 pounds. His body mass index is 29. We made a plan to lose weight at a rate of one half of a pound per week 05/17/2024 Compression fracture of L1 vertebra, initial encounter (ICD-10 - S32.010A) He is asymptomatic. This was an incidental finding on recent CT scan. Plan Of Treatment Medication Medication Name Sig Start Date Stop Date Notes Incruse Ellipta 62.5 MCG/INH INHALE 1 PU FF BY MOUTH DAILY Inhalation Albuterol Sulfate HFA 108 (9 0 Base) MCG/ACT Inhalation Breo Ellipta 200-25 MCG/INH Inhalation predniSONE 10 MG 1 tablet Orally Once a day 03/17/2024 Pravastatin Sodium 80 MG 1 tablet Orally Once a day 2023 Referrals Referral Date Details 05/17/2024 05/17/2024, evaluate and treatment stage 4 non small cell lung cancer, JESSICA LINARES Next Appt Details Follow Up: 4 Weeks, Once a m ont, Reason: OV no tests, Regular check-up and monitoring of lung cancer Provider Name:Koby Peña, 06/14/2024 09:45:00 AM, [address] [place] [address] [address], [place], [address], Provider Name:Koby Peña, 12/02/2024 10:00:00 AM, [address] [place] [address] [address], [place], [phone], Progress Notes * Jaren CANELA EDOB:[birth year] (79 yo M)Acc No.[id number]:05/17/2024 Progress Notes Patient:?Jaren CANELA Provider:?Koby Peña MD :1945???Age:79 Y???Sex:Male Rey e:05/17/2024 Address:[address] [place], [place] [id number] Subjective: * Chief Complaints: * ???Stage IV squamous cell ca rcinoma of the left lower lobe of the lungPain right ribSevere emphysemaCOPDCoronary artery disease * HPI: ???COVID-19 Screening:?Questions?Have you had any new onset fever, chills, cough, congestion, sore throat, shortness of breath, muscle aches??No ???:?The patient, a 79-year-old male, presented with pain in his rib area. He has been managing the pain with Tylenol and ibuprofen, which he takes twice daily. The pain is not severe and is described as a stinging sensation that occurs intermittently. The patient also reported having emphysema and has been off oxygen for three weeks since starting Prednisone. A recent chest X-ray showed pneumonia in the left lung, and a CT scan revealed a tumor in the rib. The patient has a history of smoking but quit in 2007. Pain Scale is 2.He has been found to have a tumor in the left lower lobe of his lung. There is a metastasis and rib destruction on the right chest wall which was biopsied.? Pathology shows squamous cell carcinoma.? I have referred him to medical oncology.? We have discussed smoking cessation. * ROS:?General/Constitutional:?pain?Right chest wall.?Chills?denies.?Fatigue?admits.?Fever?denies.?ENT:?Decreased hearing?denies.?Respiratory:?Cough?denies.?Cardiovascular:?Chest pain with exertion?denies.?Dyspnea on exertion?with moderate activity.?Shortness of breath?denies.?Gastrointestinal:?Constipation?denies.?Decreased appetite?denies.?Diarrhea?denies.?Heartburn?denies.?Nausea?denies.?Rectal bleeding?denies.?Vomiting?denies.?Hematology:?bruising?denies.?petechiae?denies.?Swollen glands?none have been noted.?Genitourinary:?Frequent urination?twice a night.?Musculoskeletal:?Muscle aches?denies.?Painful joints?denies.?Sciatica?denies.?Weakness?denies.?Skin:?Itching?denies.?Rash?denies.?Skin lesion(s)?denies.?Neurologic:?Difficulty speaking?denies.?Dizziness?denies.?Headache?denies.?Low back pain?denies.?Psychiatric:?Depressed mood?denies.? * Medical History:? * Surgical History:?fracture r ight arm age 18 1964bilateral knee replacements Bronchoscopy for interstitial pneumonia, [facility] 07/2007Direct laryngoscopy with biopsy of paralyzed left vocal cord, Dr. De León 03/2009Incomplete colonoscopy, [facility], Dr. Mo, severe sigmoid diverticulosis 01/2010Partial left medial meniscectomy and debridement, Dr. Armand Milner, [facility] 03/2010lumbar spine fusion, [facility] 2016Upper endoscopy and colonoscopy, Dr. Montague, [facility], for iron deficiency anemia 04/2018No history * [...] year??No ?Points?0 ?Interpretation?Negative ???He was born in [facility]. 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 He has had no toxic exposures. He has no zoroastrianism objections to blood transfusion. He lives in [place] with his sister. Smoking - Quit in 2007. * Medications:?TakingIncruse E llipta 62.5 MCG/INH Aerosol Powder Breath Activated INHALE 1 PUFF BY MOUTH DAILY Inhalation Breo Ellipta 200-25 MCG/INH Aerosol Powder Breath Activated Inhalation Albuterol Sulfate HFA 108 (90 Base) MCG/ACT Aerosol Solution Inhalation Pravastatin Sodium 80 MG Tablet 1 tablet Orally Once a day predniSONE 10 MG Tablet 1 tablet Orally Once a day Medication List reviewed and reconciled with the patientTaking Incmagdase Ellipta 62.5 MCG/INH Aerosol Powder Breath Activated INHALE 1 PUFF BY MOUTH DAILY Inhalation Taking Breo Ellipta 200-25 MCG/INH Aerosol Powder Breath Activated Inhalation Taking Albuterol Sulfate HFA 108 (90 Base) MCG/ACT Aerosol Solution Inhalation Taking Pravastatin Sodium 80 MG Tablet 1 tablet Orally Once a day Taking predniSONE 10 MG Tablet 1 tablet Orally Once a day Medication List reviewed and reconciled with the patient * Allergies:?Penicillin: Aller gySulfa Antibiotics: Allergyno[Allergies Verified] Objective: * Vitals:?Ht: 72, Wt:211, BMI: 28.61, BP:131/78, HR:91, Temp:98.8, Oxygen sat %:98, Wt-k.71. * ???Past Orders: ???Imaging:XR shoulder RT mi n 2V (Order Date - 03/07/2024) (Performed Date - 03/07/2024) ???Lab:PSA,Total (Free>4and< 10) (Order Date - 03/09/2024) (Collection Date & Time - 03/09/2024 09:59 AM) ? Value Reference Range ?PSA,Total (Free>4and<10) 2.51 0.00-4.00 - ng/mL ???Lab:Lactic Acid-LAB USE O NLY (Order Date - 03/08/2024) (Collection Date & Time - 03/08/2024 01:36 AM) ? Value Reference Range ?Lactic Acid-LAB USE ONLY 1.2 0.5-2.0 - mmol/L Lab:Complete Blood Count Aut o Diff * [...] Date & Time - 03/08/2024 04:44 AM)?ValueReference Range?[id number] - mmol/L?Blood Urea Qtqgfofh96Z1-05 - mg/dL?Creatinine0.680.5-1.4 - mg/dL?Glucose Tiwmkp32905-262 - mg/dL?Calcium8.68.4-10.2 - mg/dL ?Potassium3.83.3-5.1 - mmol/L?Nfuqsdac245E02-480 - mmol/L ?Carbon Qojshtp0558-64 - mmol/L?Anion Ynw5912-95 - ?Estimated Glomerular Filt Rate> 60-?Creatinine Clr Calc Pharmacy 108.1- ???Lab:Hold Green Gel (Order Date - 03/07/2024) (Collection Date & Time - 03/07/2024 10:24 PM)?ValueReference Range?Hold Brando Begumee Note- ???Lab:SARS-CoV2/FLU/RSV (Order Date - 03/07/2024) (Collection Date & Time - 03/07/2024 04:22 PM)?ValueReference Range?Influenza A PCRNEGATIVE Negative -?Influenza B PCRNEGATIVENegative -?Resp Syncy Virus RNA Qual PCRNEGATIVENegative -?SARS COV2 PCR INHOUSENEGATIVENegative - ???Lab:Lactic Acid (Order Date - 03/07/2024) (Collection Date & Time - 03/07/2024 07:36 PM)?ValueReference Range?Lactic Acid4.2HH0.5-2.0 - mmol/L ???Lab:Blood Culture (First) (Order Date [...] - 03/07/2024 04:22 PM)?ValueReference Range?B Type Natriuretic Tvuqwrj41<100 - pg/mL ???Lab:Prothrombin Time INR (Order Date - 03/07/2024) (Collection Date & Time - 03/07/2024 04:22 PM)?ValueReference Range?Prothrombin Time12.5H 10.9-12.4 - SEC?INTERNATIONAL NORM RATIO1.10.9-1.1 - ???Imaging:XR chest 2V (Order Date - 03/07/2024) (Performed Date - 03/07/2024) ???Imaging:CT angio chest PE protocol (Order Date - 03/07/2024) (Performed Date - 03/07/2024) ???Lab:Lactic Acid-LAB USE ONLY (Order Date - 03/07/2024) (Collection Date & Time - 03/07/2024 10:24 PM)?ValueReference Range? Lactic Acid-LAB USE ONLY2.2HH0.5-2.0 - mmol/L ???Lab:Hold Gold (Order Date - 03/07/2024) (Collection Date & Time - 03/07/2024 10:24 PM)?ValueReference Range?Demetris Read Note- ???Lab:Partial Thromboplastin Time (Order Date - 03/07/2024) (Collection Date & Time - 03/07/2024 04:22 PM)?ValueReference Range?Partial Thromboplastin Time30.126.0-36.8 - SEC ???Lab:D Dimer High Sensitivity (Order Date - 03/07/2024) (Collection Date & Time - 03/07/2024 04:22 PM)?ValueReference Range?D Dimer High Shcvwngvcme351- NG/ML ???Lab:Ethanol (Order Date - 03/07/2024) (Collection [...] Creatinine Clr Calc Pharmacy 99.3 NR NR * Examination: ???General Examination: ?GENERAL APPEARANCE:?overweight, alert, in no acute distress, well developed, well nourished, man.?HEAD:?atraumatic, normocephalic.?EYES:?eomi, perrla, anicteric, conjugate.?EARS:?normal.?NOSE:?septum intact.?ORAL CAVITY:?normal, unremarkable.?NECK/THYROID:?no jugular venous distention, no carotid bruit, thyroid normal.?LYMPH NODES:?no enlarged lymph nodes,spleen normal.?SKIN:?no suspicious lesions, anicteric.?HEART:?no clicks, gallops, murmurs, or rubs, regular rhythm, S1, S2 normal, no s3, or vascular bruits.?LUNGS:?, diminished breath sounds throughout, rhonchi on the LEFT.?BREASTS:??no masses palpable bilaterally.?ABDOMEN:?bowel sounds normal, no ascites, no organomegaly, no mass, overweight.?RECTAL EXAM:?not examined.?MUSCULOSKELETAL:?extremities unremarkable, no clubbing, cyanosis or edema.?PERIPHERAL PULSES:?normal.?NEUROLOGIC:?alert and oriented, cranial nerves 2-12 grossly intact, deep tendon reflexes 2+ symmetrical, motor strength normal upper and lower extremities, sensory exam intact.?PSYCH:?alert, oriented.? : ???Rib Examination - Pain reported in rib area, Chest X-ray - Pneumonia in left lung, CT scan - Tumor in rib. ??? Assessment: * Assessment: 1.?Metastatic non-small cell lung cancer - C34.90 (Primary)???Notes :The primary left lower lobe tumor has spread to the right ribs.? Biopsy shows squamous cell carcinoma.? Genetic testing is not available at this time.? I referred him to medical oncology with a diagnosis of stage IV squamous cell carcinoma lung.???2.?COPD (chronic obstructive pulmonary disease) - J44.9???Notes :He had a recent hospitalization for respiratory failure. He is doing well now with prednisone. This was continued until he sees his cad application support specialist. He is comfortable at rest or with prolonged exertion becomes dyspneic and tachycardic. He is no longer smoking.???3.?Pulmonary emphysema, unspecified emphysema type - J43.9???Notes :His lung disease is stable. He is no longer smoking. He is short of breath with exertion but not during the course of daily life.???4.?Mixed hyperlipidemia - E78.2???Notes :His lipids are currently stable and no change in his regimen as necessary.???5.?ASHD (arteriosclerotic heart disease) - I25.10???Notes :He denies any recent angina palpitations or syncope. Current therapy was continued.???6.?Positive PPD - R76.11???Notes :History obtained from old records shows he was PPD +1974. It is not clear if he was ever treated. He has never had clinical TB. Some years ago he developed an interstitial infiltrate in his lung and was hospitalized. 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 He has recovered from that.???7.?History of torn meniscus of left knee - Z87.828???8.?Former smoker - Z87.891???Notes :He seems motivated not to smoke. We formulated a plan to prevent relapse in time to stress and illness.???9.?Overweight - E66.3???Notes :He has gained 2 pounds. His body mass index is 29. We made a plan to lose weight at a rate of one half of a pound per week???10.?Compression fracture of L1 vertebra, initial encounter - S32.010A???Notes :He is asymptomatic. This was an incidental finding on recent CT scan.??? Plan: * Treatment: 2.?Others? Referral To:MORENA MARSHALL??Oncology ?Reason:evaluate and treatment stage 4 non small cell lung cancer * Procedure Codes:?29082 MEASU RE BLOOD OXYGEN LEVEL * Preventive Medicine:? ??Counseling:?Care goal follow-up plan:?Counseling for abnormal BMI given?Yes ?Above Normal BMI Follow-up?Dietary management education, guidance, and counseling ?Smoking/Tobacco Use?Patient counseled on the dangers of tobacco use and urged to quit.?05/17/2024 ??COPD Care Plan:?Patient Lifestyle Goals?Be able to be more active with friends and family, Reduce number of ED and hospitalizations, Relieve symptoms and improve quality of life.?Treatment Goals?Exercise to help whole body, including lungs, Eat a nutritious diet and increase water consumption to 6-8 glasses a day, Eat 4-5 small meals throughout the day.?Barriers?no barriers.?Self-Managment Goals?Eat a healthy diet, Get an air purifier for the rooms you are in the most.? * Follow Up:?4 Weeks, Once a m onth (Reason: OV no tests, Regular check-up and monitoring of lung cancer) * Images: * Sign off status: Completed true * Provider:?Koby Peña MD Date:?05/07 Generated for Elisabeth andersen/Dina/Tulioitting on:?06/06/2024 11:50 AM EST History and Physical Notes * HPI (History of Present Illness) Category Sub-Category Detail Notes COVID-19 Screening Questions Have you had any new onset fever, chills, cough, congestion, sore throat, shortness of breath, muscle aches?: No Examination Category Sub-Category Detail Notes General Examination GENERAL APPEARANCE: overweig ht, alert, in no acute distress, well developed, well nourished, man HEAD: atraumatic, normocep halic EYES: eomi, perrla, anicte lyle, conjugate EARS: normal NOSE: septum intact NECK/THYROID: no jugular venous di stention, no carotid bruit, thyroid normal HEART: no clicks, gallops, murmurs, or rubs, regular rhythm, S1, S2 normal, no s3, or vascular bruits LUNGS: , diminished breath sounds throughout, rhonchi on the LEFT ABDOMEN: bowel sounds normal, no ascites, no [...] Referral Date Referring Provider Referred Provider Not es 05/17/2024 Koby Peña JOHN evaluate and t reatment stage 4 non small cell lung cancer
--- OUTSIDE RECORDS SUMMARY | 2024-06-06 11:51 | XMS_ITS | Patient Health Record ---
Author Organization Koby Peña III, MD Address [address] [place] [address] Care Team Providers Care Rate Clerk Passenger Name Role Phone Koby Peña Primary Care [...] ff Reviewed date:08/09/2023 01:08:24 PM Interpretation: Performing Lab:[facility], [address] [place] [phone] Notes/Report: White Blood Count 8.8 4.8-10.8 X10*3/uL [...] NRBC Abs Auto 0.000 0.0-0.012 X10*3/uL Comprehensive Dickens. Panel Fa st Reviewed date:08/09/2023 01:08:24 PM Interpretation: Performing Lab:[facility], [address] [place] [phone] Notes/Report: Sodium 141 135-145 mmol/L Potassium 4.3 3.3-5.1 mmol/L Chloride 105 96-108 mmol/L Carbon Dioxide 27 22-29 mmol/L Anion Gap 13 12-20 Blood Urea Nitrogen 16 9-16 mg/dL Creatinine 0.78 0.5-1.4 mg/dL Estimated Glomerular Filt Rate > 60 NOTE: For -Guatemalan individuals, multiply the result by 1.210. Chronic [...] Ferritin Reviewed date:08/09/2023 01:08:24 PM Interpretation: Performing Lab:[facility], [address] [place] [phone] Notes/Report: Ferritin 86 20-250 ng/mL Lipid Panel Reviewed date:08/09/2023 01:08:24 PM Interpretation: Performing Lab:[facility], [address] [place] [phone] Notes/Report: Triglycerides 160 <150 mg/dL Desirable Triglyceride: [...] me Reviewed date:09/14/2023 04:19:47 AM Interpretation: Performing Lab:[facility], [address] [place] [phone] Notes/Report: Alk.Phos Isoenzymes Total 130 35-144 U/L Alk.Phos Isoenzymes Intest 9 1-24 % Alk.Phos Isoenzymes Bone 34 28-66 % Alk.Phos Isoenzymes Liver 57 25-69 % Alk.Phos Isoenzymes Placental 0 <=0 % Alk.Phos Iso. Macrohepatic 0 <=0 % THIS TEST WAS PERFORMED AT: [employer]/[facility] [id number] [place] [phone] MARYSOL SOLANO MD,PHD Alk.Phos Isoenzymes Interp TNP Complete Blood Count Auto Di ff Reviewed date:11/27/2023 03:44:00 PM Interpretation: Performing Lab:[facility], [address] [place] [phone] Notes/Report: White Blood Count 8.0 4.8-10.8 X10*3/uL [...] NRBC Abs Auto 0.000 0.0-0.012 X10*3/uL Comprehensive Dickens. Panel Fa st Reviewed date:11/27/2023 03:44:00 PM Interpretation: Performing Lab:[facility], [address] [place] [phone] Notes/Report: Sodium 144 135-145 mmol/L Potassium 4.3 3.3-5.1 mmol/L Chloride 107 96-108 mmol/L Carbon Dioxide 29 22-29 mmol/L Anion Gap 12 12-20 Blood Urea Nitrogen 16 9-16 mg/dL Creatinine 0.81 0.5-1.4 mg/dL Estimated Glomerular Filt Rate > 60 NOTE: For -Guatem[place] individuals, multiply the result by 1.210. Chronic [...] Panel Reviewed date:11/27/2023 03:44:00 PM Interpretation: Performing Lab:[facility], [address] [place] [phone] Notes/Report: Triglycerides 159 <150 mg/dL Desirable Triglyceride: [...] Antigen Reviewed date:11/27/2023 03:44:00 PM Interpretation: Performing Lab:[facility], [address] [place] [phone] Notes/Report: Prostate Specific Antigen 1.46 <0.05-4.0 ng/mL PSA methodology: Davila Alinity i Chemiluminescent Microparticle Immunoassay (CMIA) Complete Blood Count Auto Di ff Reviewed date:03/14/2024 05:01:23 AM Interpretation: Performing Lab:[facility], [address] [place] [phone] Notes/Report: White Blood Count 12.4 4.8-10.8 X10*3/uL [...] gy Reviewed date:03/14/2024 05:01:23 AM Interpretation: Performing Lab:[facility], [address] [place] [phone] Notes/Report: Hold Lav - Possible Hematology SEE NOTE Specimen will be held untested for 8 hours. Call Hematology if testing is desired. Prothrombin Time INR Reviewed date:03/14/2024 05:01:23 AM Interpretation: Performing Lab:[address] [address] Notes/Report: Prothrombin Time 12.5 10.9-12.4 SEC INTERNATIONAL [...] Time Reviewed date:03/14/2024 05:01:23 AM Interpretation: Performing Lab:[address] [address] Notes/Report: Partial Thromboplastin Time 30.1 26.0-36.8 SEC For information regarding the monitoring of direct thrombin inhibitors, please refer to Pharmacy. Comprehensive Met. Panel Reviewed date:03/14/2024 05:01:23 AM Interpretation: Performing Lab:[address] [address] Notes/Report: Sodium 140 135-145 mmol/L Potassium 3.9 [...] Acid Reviewed date:03/14/2024 05:01:23 AM Interpretation: Performing Lab:[facility], [address] [place] [phone] Notes/Report: Lactic Acid 4.2 0.5-2.0 mmol/L Critical value for test LATIC: Results called to and read back by: DAVIE Person calling: ROXANNE Date:03/07/2024 Time: 2010 Troponin-I High Sensitivity Reviewed date:03/14/2024 05:01:23 AM Interpretation: Performing Lab:[facility], [address] [place] [phone] Notes/Report: Troponin-I High Sensitivity < 2.7 <3.5-35.0 ng/L The Davila high sensitivity Troponin-I results should be used in conjunction with other diagnostic information such as ECG, clinical observations and information, and patient symptoms to aid in the diagnosis of MN. B Type Natriuretic Peptide Reviewed date:03/14/2024 05:01:23 AM Interpretation: Performing Lab:[facility], [address] [place] [address] Notes/Report: B Type Natriuretic Peptide 10 <100 pg/mL For those patients who are being treated with Natrecor (nesiritide, recombinant BNP), BNP testing should be performed at least two hours post treatment in order to ensure that only endogenous levels of BNP are detected. Demetris Tee Reviewed date:03/14/2024 05:01:23 AM Interpretation: Performing Lab:[facility], [address] [place] [phone] Notes/Report: Demetris Tee See Note Specimen held untested for 24 hours; Call to request Chemistry testing. Ethanol Reviewed date:03/14/2024 05:01:23 AM Interpretation: Performing Lab:[facility], [address] [place] [phone] Notes/Report: Ethanol < 10 Serum/plasma ethanol results are to be used for medical/treatment purposes only. SARS-CoV2/FLU/RSV Reviewed date:03/14/2024 05:01:24 AM Interpretation: Performing Lab:[facility], [address] [place] [phone] Notes/Report: Influenza A PCR NEGATIVE Negative Influenza [...] by authorized laboratories. Testing performed on the [employer] GeneXpert utilizing real-time RT-PCR. All SARS CoV2 and positive influenza A/B results are reported to [facility]. Blood Culture (First) Reviewed date:03/14/2024 05:01:23 AM Interpretation: Performing Lab:[address] [address] Notes/Report: Blood Culture (First) No growth after 5 days. Blood Culture (Second) Reviewed date:03/14/2024 05:01:23 AM Interpretation: Performing Lab:[address] [phone] Notes/Report: Blood Culture (Second) No growth after 5 days. Lactic Acid-LAB USE ONLY Reviewed date:03/14/2024 05:01:24 AM Interpretation: Performing Lab:[address] [address] Notes/Report: Lactic Acid-LAB USE ONLY 2.2 0.5-2.0 mmol/L Critical value for test(s): LACTA Results called to and read back by: NAVEED Person calling: CORETTA Date: 03/07/24 Time: 2249 D Dimer High Sensitivity Reviewed date:03/14/2024 05:01:24 AM Interpretation: Performing Lab:[facility], [address] [place] [phone] Notes/Report: D Dimer High Sensitivity 823 D-DIMER [...] Gel Reviewed date:03/14/2024 05:01:24 AM Interpretation: Performing Lab:[facility], [address] [place] [phone] Notes/Report: Hold Green Gel See Note Specimen held untested for 24 hours; Call to request Chemistry testing. CT angio chest PE protocol Reviewed date:03/14/2024 05:01:24 AM Interpretation: Performing Lab: Notes/Report: [address] [address] [address] Scan Report Signed Patient: Jaren Up MR#: [id number] 287 : 1945 Acct:[id number] Age/Sex: 79 / M ADM Date: 03/07/24 Loc: [place] [address]: Subhash Welch MD Ordering Physician: Jeffrey Ellsworth MD Date of Service: 03/07/24 Procedure(s): CT angio chest PE protocol Accession Number(s): [id number] cc: Koby Peña MD; Jeffrey Ellsworth MD [...] by: Clarence Block MD 03/07/2024 11:20 PM [facility] Dictated By: Clarence Block MD Signed By: <Electronically signed by Clarence Block MD in OV> 03/07/24 0730 DD/ 1849 TD/TT: 03/07/241919 [employer] Sales Representative: [address] [address] [address] Scan Report Signed Patient: Kane Up MR#: [id number] 287 : 1945 Acct:[id number] Age/Sex: 79 / M ADM Date: 03/07/24 Loc: [place] [address]: Niki Welch MD Ordering Physician: Jeffrey Ellsworth MD Date of Service: 03/07/24 Procedure(s): CT ang io chest PE protocol Accession Number(s): [id number] cc: Koby Peña MD; Jeffrey Ellsworth MD [...] by: Clarence Block MD 03/07/2024 11:20 PM [facility] Dictated By: Clarence Block MD Signed By: <Electron icall signed by Clarence Block MD in [place]> 03/07/24 2320 DD/ 1849 TD/TT: 03/07/24 1920 [employer] Sales Representative: AMITA XR chest 2V Reviewed date:03/14/2024 05:01:24 AM Interpretation: Performing Lab: Notes/Report: [address] [address] XRay Report Signed Patient: Jaren Up MR#: [id number] 287 : 1945 Acct:[id number] Age/Sex: 79 / M ADM Date: 03/07/24 Loc: HO.ED Attending Dr: Ordering Physician: Generic ED Physician Date of Service: 03/07/24 Procedure(s): XR chest 2V Accession Number(s): [id number] cc: Koby Peña MD; Generic ED Physician [...] by: Melvi Wong MD 03/07/2024 04:48 PM [facility] Dictated By: Melvi Wnog MD Signed By: <Electronically signed by Melvi Wnog MD in [place]> 03/07/24 1648 DD/ 1545 TD/TT: 03/07/24 1550 [employer] Sales Representative: [place] [address] XRay Report Signed Patient: Kane Up MR#: [id number] 287 : 1945 Acct:[id number] Age/Sex: 79 / M ADM Date: 03/07/24 Loc: .ED Attending Dr: Ordering Physician: Generic ED Physician Date of Service: 03/07/24 Procedure(s): XR chest 2V Accession Number(s): [id number] cc: Koby Peña MD; Generic ED Physician [...] 03/07/24 1648 DD/ 1545 TD/TT: 03/07/24 1550 [employer] Sales Representative: COREY XR shoulder RT min 2V Reviewed date:03/14/2024 05:01:24 AM Interpretation: Performing Lab: Notes/Report: [address] [address] XRay Report Signed Patient: Jaren Up MR#: [id number] 287 : 1945 Acct:[id number] Age/Sex: 79 / M ADM Date: 03/07/24 Loc: HO.ED Attending Dr: Ordering Physician: Generic ED Physician Date of Service: 03/07/24 Procedure(s): XR shoulder RT min 2V Accession Number(s): [id number] cc: Koby Peña MD; Generic ED Physician [...] 03/07/24 1737 DD/ 1640 TD/TT: 03/07/24 1648 [employer] Sales Representative: DANYA [address] [address] XRay Report Signed Patient: Kane Up MR#: [id number] 287 : 1945 Acct:[id number] Age/Sex: 79 / M ADM Date: 03/07/24 Loc: HO.ED Attending Dr: Ordering Physician: Generic ED Physician Date of Service: 03/07/24 Procedure(s): XR neeraj ta RT min 2V Accession Number(s): [id number] cc: Koby Peña MD; Generic ED Physician [...] by: Pierce Trevino MD 03/07/2024 05:37 PM [facility] Dictated By: Pierce Trevino MD Signed By: <Electron ically signed by Pierce Trevino MD in [place]> 03/07/24 1737 DD/ 1640 TD/TT: 03/07/24 1648 [employer] Sales Representative: DANYA Complete Blood Count Auto Di ff Reviewed date:03/14/2024 05:01:23 AM Interpretation: Performing Lab:[facility], [address] [place] [address] Notes/Report: White Blood Count 9.4 4.8-10.8 X10*3/uL [...] Panel Reviewed date:03/14/2024 05:01:23 AM Interpretation: Performing Lab:[address] [address] Notes/Report: Sodium 142 135-145 mmol/L Potassium 3.8 [...] ONLY Reviewed date:03/14/2024 05:01:23 AM Interpretation: Performing Lab:[address] [address] Notes/Report: Lactic Acid-LAB USE ONLY 1.2 0.5-2.0 mmol/L PSA,Total (Free>4and<10) Reviewed date:03/14/2024 05:01:23 AM Interpretation: Performing Lab:[facility], [address] [place] [phone] Notes/Report: PSA,Total (Free>4and<10) 2.51 0.00-4.00 ng/mL A [...] between 4.0 and 10.0 ng/mL. PSA methodology: Lumenz Alinity i Chemiluminescent Microparticle Immunoassay (CMIA) Pathology Reviewed date:05/29/2024 09:16:13 AM Interpretation: Performing Lab:[facility], [address] [place] [phone] Notes/Report: ------ Name: Jaren Up Age/Sex: 79/M : 1945 Unit#: [id number] Attend Dr: Vasiliy Alvarado MD Re05/05/24 [place] : [facility] Location: [facility] Disch: ------ SPEC : [id number] RECD: 05/05/24 STATUS: KARIN CLIFFORD NUM: [id number] LISA: 05/05/24-[address] [facility] [address]: Huan Barker ENTERED: 05/05/24-11 42 SP TYPE: Surgical OTHR DR: Koby [...] Jaren Up Age/Sex: 79/M : 1945 Unit#: [id number] Attend Dr: Vasiliy Alvarado MD Re05/05/24 Status : [facility] [place] Location: [facility] Disch: ------ SPEC : [id number] RECD: 05/05/24 STATUS: KARIN Chago NUM: [id number] LISA: 05/05/24-[address] [facility] [address]: Huan Barker ENTERED: 05/05/24-11 42 SP TYPE: Surgical OTHR DR: Koby Peña MD, Pasquale MD ORDERED: Gross Micro L3, IHC, Add. immunos/4, CK7, CK20, Gia-3, p40, TTF-1 Copies To: Koby Peña MD [address] [place] [address], [address] [address] Vasiliy Alvarado MD [facility] [address] [place] [phone] [email or web address] Huan Barker [address] [place] [phone] [email or web address] ------ Signed (signature on file) Promise Benitez MD 05/09/24 0817 ------ END OF REPORT CT biopsy lung RT Reviewed date:05/29/2024 09:16:13 AM Interpretation: Performing Lab: Notes/Report: [address] [address] [address] Scan Report Signed Patient: Jaren Up MR#: [id number] 287 : 1945 Acct:[id number] Age/Sex: 79 / M ADM Date: 05/05/24 Loc: [facility] Attending Dr: Vasiliy Alvarado MD Ordering Physician: Vasiliy Alvarado MD Date of Service: 05/05/24 Procedure(s): CT biopsy lung RT Accession Number(s): [id number] cc: Koby Peña MD; Vasiliy Alvarado MD Report Number: [id number]: Total DLP = 186.00 mGy-cm PET avid [...] by: Oli Shirley MD 05/11/2024 01:47 PM [facility] Dictated By: Huan Barker Signed By: <Electronically signed by Huan Barker in [place]> 05/11/24 1347 <Electronically signed by Oli Shirley MD in OV> 05/11/24 1349 DD/ 1041 TD/TT: 05/05/24 1120 [employer] Sales Representative: [place] [address] CT Scan Report Signed Patient: Kane Up MR#: [id number] 287 : 1945 Acct:[id number] Age/Sex: 79 / M ADM Date: 05/05/24 Loc: .[facility] Attending Dr: Maia Tolbert MD Ordering Physician: Vasiliy Alvarado MD Date of Service: 05/05/24 Procedure(s): CT bio psy lung RT Accession Number(s): [id number] cc: Koby Peña MD; Vasiliy Alvarado MD [...] RP Dictated By: Oscar Barker Signed By: <Electron icadoris signed by Huan Barker in OV> 05/11/24 1347 <Electronically sign ed by Oli Shirley MD in OV> 05/11/24 1349 DD/ 1041 TD/TT: 05/05/24 1120 [employer] Sales Representative: Reason For Referral Reason Evaluate and Treat Diagnosis 1 Right shoulder pain (M25.511) Referral Organization Koby Peña III, MD Referring Provider First Name Koby Referring Provider Last Name Peña Referring Provider Speciality Internal M edicine Referred Provider [facility] er, Orthopedic Surgeons Referred Provider Specialty Orthopedic S fito General Notes DColleen 03/21/2024 03:51:49 PM > Faxed referral and progress note., Colleen Kearney 05/05/2024 03:57:09 PM > patient stated that his right shoulder pain was getting better and is holding off on seeing [facility]. Patient stated he spoke with Dr. Peña regarding this. Referral Priority Routine Reason evaluate and treatme nt stage 4 [...] Referral Priority Routine Referral Appointment Date 05/23/2024 Medications Medication SIG (Take, Route, Frequency, Duration) Notes Start Date End Date Status Incruse Ellipta 62.5 MCG/INH INHALE 1 PUFF BY MOUTH DAILY Inhalation Active Albuterol Sulfate HFA 108 (90 Base) MCG/ACT Inhalation Active Breo Ellipta 200-25 MCG/INH Inhalation Active predniSONE 10 MG 1 tablet Orally Once a day 03/17/2024 Active Pravastatin Sodium 80 MG 1 tablet Orally Once a day 03/17/2024 Active Immunizations Vaccine Route Administration Date [...] Problem Status W/U Status Risk Notes Problem 0366359 Former smoker (Z87.891) Active confirmed He seems motivated not to smoke. We formulated a plan to prevent relapse in time to stress and illness. Problem 380185060 Overweight (E66.3) Active confirmed He has gained 2 pounds. His body mass index is 29. We made a plan to lose weight at a rate of one half of a pound per week Problem 74481762 Allergy to sulfa drugs (Z88.2) Active confirmed Problem 744235969 Mixed hyperlipidemia (E78.2) Active confirmed His lipids are currently stable and no change in his regimen as necessary. Problem 035880648 Low back pain (M54.5) Active confirmed He has had surgery on his lumbar spine for degenerative disc disease and impingement of the left L5 nerve root at the foramen. Problem COPD - Chronic obstructive pulmonary disease (70776424) COPD (chronic obstructive pulmonary disease) (J44.9) Active confirmed He had a re cent hospitalization for respiratory failure. He is doing well now with prednisone. This was continued until he sees his database marketing specialist. He is comfortable at rest or with prolonged exertion becomes dyspneic and tachycardic. He is no longer smoking. 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 He has recovered from that. Problem 139003036 History of iron deficiency anemia (Z86.2) Active confirmed His iron deficiency anemia has resolved. He has not noticed any bleeding. He is compliant with his treatment. His ferritin is 86. Problem 711110747 Primary osteoarthritis of both knees (M17.0) Active confirmed He has had knee surgery. He will continue on current therapy and be monitored carefully. Problem 02730987 Pulmonary emphysema, unspecified emphysema type (J43.9) Active confirmed His lung diseas e is stable. He is no longer smoking. He is short of breath with exertion but not during the course of daily life. Problem 955723532 Rib lesion (M89.9) Active confirmed A CT [...] pulmonary neoplasm. His PSA is normal. Problem 9725481321413 Benign prostatic hyperplasia with lower urinary tract symptoms (N40.1) Active confirmed He rises from sleep once and sometimes twice a night. He had no nodules in his prostate. We discussed modifications to his lifestyle he could make to reduce nocturia. Problem 873982865 Pulmonary neoplasm (D49.1) Active confirmed He has laurie ral abnormal masslike densities in the left lower lobe and destruction of the right third rib. A needle biopsy of the rib mass has been ordered under CT guidance. Problem 09807581 ASHD (arterioscleroti c heart disease) (I25.10) Active confirmed He denies any recent angina palpitations or syncope. Current therapy was continued. 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 Problem 400868750 Compression fracture of L1 vertebra, initial encounter (S32.010A) Active confirmed He is asymptomatic. This was an incidental finding on recent CT scan. Vital Signs Heart Rate 91 /min 05/17/2024 Temperature 98.8 degrees Fahrenheit 05/17/2024 Oximetry 98 % 05/17/2024 Blood pressure diastolic 78 mm Hg 05/17/2024 Height 72 in 05/17/2024 Blood pressure systolic 131 mm Hg 05/17/2024 Weight 211 lbs 05/17/2024 BMI 28.61 kg/m2 05/17/2024 Encounters Encounter Location Date Provider Diagnosis Koby Peña III, MD [address] [place] [address] [place] [phone] 08/11/2023 Koby Peña Mixed hyperlipidemia E78.2 ; Benign prostatic hyperplasia with lower urinary tract symptoms N40.1 ; Overweight E66.3 ; COPD (chronic obstructive pulmonary disease) J44.9 ; Pulmonary emphysema, unspecified emphysema type J43.9 ; ASHD (arteriosclerotic heart disease) I25.10 ; History of iron deficiency anemia Z86.2 and Primary osteoarthritis of both knees M17.0 Koby Peña III, MD [address] [place] [address] [place] [phone] 12/03/2023 Koby Peña Mixed hyperlipidemia E78.2 ; Benign prostatic hyperplasia with lower urinary tract symptoms N40.1 ; COPD (chronic obstructive pulmonary disease) J44.9 ; Pulmonary emphysema, unspecified emphysema type J43.9 ; ASHD (arteriosclerotic heart disease) I25.10 ; Primary osteoarthritis of both knees M17.0 ; Overweight E66.3 and Former smoker Z87.891 Koby Peña III, MD [address] [place] [address] [place] [phone] 03/17/2024 Koby Peña Mixed hyperlipidemia E78.2 ; [...] Pulmonary neoplasm D49.1 Koby Peña III, MD [address] [place] [address] [place] [address] 03/31/2024 Koby Peña Mixed hyperlipidemia E78.2 ; Pulmonary emphysema, unspecified emphysema type J43.9 ; Rib lesion M89.9 ; COPD (chronic obstructive pulmonary disease) J44.9 ; Primary osteoarthritis of both knees M17.0 ; ASHD (arteriosclerotic heart disease) I25.10 ; Former smoker Z87.891 ; Benign prostatic hyperplasia with lower urinary tract symptoms N40.1 and Overweight E66.3 Koby Peña III, MD [address] [place] [address] [place] [phone] 05/17/2024 Koby Peña Metastatic non-small cell lung cancer C34.90 ; COPD (chronic obstructive pulmonary disease) J44.9 ; Pulmonary emphysema, unspecified emphysema type J43.9 ; Mixed hyperlipidemia E78.2 ; ASHD (arteriosclerotic heart disease) I25.10 ; Positive PPD R76.11 ; History of torn meniscus of left knee Z87.828 ; Former smoker Z87.891 ; Overweight E66.3 and Compression fracture of L1 vertebra, initial encounter S32.010A Koby Peña III, MD [address] [place] [address] [place] [phone] 03/14/2024 Koby Peña III, MD [address] [place] [address] [place] [phone] 03/15/2024 Koby Peña III, MD [address] [place] [address] [place] [phone] 03/22/2024 Koby Peña III, MD [address] [place] [address] [place] [phone] 04/11/2024 Koby Peña III, MD [address] [place] [address] [place] [phone] 05/18/2024 Koby Peña Assessments Encounter Date Diagnosis (ICD [...] during the course of daily life. 05/17/2024 COPD (chronic obstructive pulmonary disease) (ICD-10 - J44.9) He had a recent hospitalization for respiratory failure. He is doing well now with prednisone. This was continued until he sees his database marketing specialist. He is comfortable at rest or with prolonged exertion becomes dyspneic and tachycardic. He is no longer smoking. 05/17/2024 Metastatic non-small cell lung cancer (ICD-10 - C34.90) The primary left lower lobe tumor has spread to the right ribs. Biopsy shows squamous cell carcinoma. Genetic testing is not available at this time. I referred him to medical oncology with a diagnosis of stage IV squamous cell carcinoma lung. 08/11/2023 Overweight (ICD-10 - E66.3) He has [...] This was continued until he sees his database marketing specialist. He is comfortable at rest or [...] a pulmonary neoplasm. His PSA is normal. 05/17/2024 Pulmonary emphysema, unspecified emphysema type (ICD-10 - J43.9) His lung disease is stable. He is no longer smoking. He is short of breath with exertion but not during the course of daily life. 08/11/2023 COPD (chronic obstructive pulmonary disease) (ICD-10 [...] This was continued until he sees his database marketing specialist. He is comfortable at rest or with prolonged exertion becomes dyspneic and tachycardic. He is no longer smoking. 05/17/2024 Mixed hyperlipidemia (ICD-10 - E78.2) His lipids are currently stable and no change in his regimen as necessary. 08/11/2023 Pulmonary emphysema, unspecified emphysema type (ICD-10 [...] on current therapy and be monitored carefully. 05/17/2024 ASHD (arteriosclerotic heart disease) (ICD-10 - [...] the cancer. He has recovered from that. 08/11/2023 History of iron deficiency anemia (ICD-10 [...] in time to stress and illness. 05/17/2024 History of torn meniscus of left knee (ICD-10 - Z87.828) 08/11/2023 Primary osteoarthritis of both knees (ICD-10 [...] lifestyle he could make to reduce nocturia. 05/17/2024 Former smoker (ICD-10 - Z87.891) He seems motivated not to smoke. We formulated a plan to prevent relapse in time to stress and illness. 03/17/2024 Benign prostatic hyperplasia with lower urinary [...] half of a pound per week 05/17/2024 Overweight (ICD-10 - E66.3) He has gained 2 pounds. His body mass index is 29. We made a plan to lose weight at a rate of one half of a pound per week 03/17/2024 Compression fracture of L1 vertebra, initial encounter (ICD-10 - S32.010A) He is asymptomatic. This was an incidental finding on recent CT scan. 05/17/2024 Compression fracture of L1 vertebra, initial [...] 08/11/2023 Lipid Panel 05/13/2023 Alkaline Phosphatase Isoenzyme 02/07/202 4 Next Appt Details Provider Name:Koby Peña, 06/14/2024 09:45:00 AM, [address] [facility] [address], [place], [address], Provider Name:Koby Peña, 12/02/2024 10:00:00 AM, [address] [place] [address] [address], [place], [address], Insurance Providers Payer Name Payer Address Payer Phone Subscriber Number Group Number Insured Name Patient Relationship to Insured Coverage Start Date Coverage End Date MEDICARE NGS [address] [place] [id number] Jaren Up Self - patient is the insured [facility] [address] [place], [place] [id number] Jeovanny Jaren Self - patient is the insured Medical [...] MRI 2015 Neoplastic destruction right third rib Emphysema - Managed with Pre dnisone, Pneumonia - Detected in recent chest X-ray, Lung Cancer (Small Cell Carcinoma) - Detected in recent CT scan Surgical History Surgery Date(Month/Year) fracture right arm age 18 1963 bilateral knee replacements Bronchoscopy for interstitial pneumonia, [facility] 07/2007 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 De León 03/2009 Incomplete colonoscopy, [facility], Dr. Mo, severe sigmoid diverticulosis 01/2010 Partial left medial meniscec geovani and debridement, Dr. Armand Milner, [facility] [place] lumbar spine fusion, [facility] 2016 Upper endoscopy and colonosc opy, Dr. Montague, [facility], for iron deficiency anemia 04/2018 No history Hospitalization History Reason Date(Month/Year) Hospitalized for five days d ue to respiratory distress and shoulder injury. No history
--- OUTSIDE RECORDS SUMMARY | 2024-06-06 11:51 | XMS_ITS | Clinical Summary ---
Author Organization [facility] Address [address] [place] [address] Phone Care Team Providers Care Appointment Scheduler Name Role Phone Unavailable Primary Care Provider Unavailabl e Encounters Date Type Department Care Team Description 03/28/2024 9:02 AM EST - 03/28/2024 11:59 PM EST Hospital Encounter [facility] PET Scan [address] [place] [address] Other nonspecific abnormal finding of [...] Comments DTaP,Tdap,and Td Vaccines (1 - Tdap) 1964 Pneumococcal Vaccine: 50+ Ye ars (1 of [...] Signed Date: 03/29/2024 10:06 ET Workstation ID: [id number] Transcribed By: Self Edit Transcribed Date: 03/28/2024 [...] Signed Date: 03/29/2024 10:06 ET Workstation ID: [id number] Transcribed By: Self Edit Transcribed Date: 03/28/2024 11:30 ET [facility] Final Result from Last 3 Months Insurance MEDICARE [facility]
--- OUTSIDE RECORDS SUMMARY | 2024-06-06 11:51 | XMS_ITS ---
Author Organization Koby Peña III, MD Address [address] [place] [address] Care Team Providers Care Vocational Coordinator Name Role Phone Koby Peña Primary Care Provider [phone] REASON FOR VISIT Message Social History Sex Assigned At : Social History Observation Description Sex Assigned At Male Encounters Encounter Location Date Provider Diagnosis Koby Peña III, MD [address] [place] [address] [place] [address] 05/18/2024 Koby Peña Plan Of Treatment Next Appt Details Provider Name:Koby Peña, 06/14/2024 09:45:00 AM, [address] [place] [address] [place], [address], Provider Name:Koby Peña, 12/02/2024 10:00:00 AM, [address] [place] [address] [place], [address], Progress Notes * Jaren CANELA EDOB:[birth year] (79 yo M)Acc No.[id number]:05/18/2024 Patient:?Jaren CANELA :1945???Age:79 Y???Sex:Male Address:[address] [place] [address] * true * Date:? Generated for Printi ng/Faxing/eTransmitting on:?06/06/2024 11:50 AM EST
== END 2024-06-06 10:56 | disposition home or self-care (01) ==
PROVIDERS: PCP Internal Medicine Medical Oncology; Visit Provider Internal Medicine
DX: J44.9 Chronic obstructive pulmonary disease, unspecified (principal); R91.8 Other nonspecific abnormal finding of lung field; J96.01 Acute respiratory failure with hypoxia
CPT/HCPCS: 99213

== ENCOUNTER → 2024-06-06 10:17 | Outpatient (BNVA) | payer MEDICARE, SELFPAY | PROVIDERS: PCP Internal Medicine Medical Oncology; Visit Provider Internal Medicine | DX: J44.9 Chronic obstructive pulmonary disease, unspecified (principal); J96.01 Acute respiratory failure with hypoxia; R91.8 Other nonspecific abnormal finding of lung field | CPT/HCPCS: 99212 ==

== ENCOUNTER 2024-06-09 10:10 | Outpatient (AMB) | payer MEDICARE, SELFPAY ==
--- NOTE | 2024-06-09 10:41 | A.OFFVIS_ITS ---
<Statement entered by Mary Jo Mckeon MD - 06/21/24 08:59> The visit was just for 6 minutes walk Intake Visit Reasons: 6MW/[place] Allergies Penicillins [PENICILLINS] Allergy (Intermediate, Verified 06/06/24 10:44) SWELLING Sulfa (Sulfonamide Antibiotics) [Sulfa (Sulfonamides)] Allergy (Mild, Verified 06/06/24 10:44) [facility] Medical History COPD exacerbation Upper respiratory infection COPD (chronic obstructive pulmonary disease) Surgical History Hx of surgical procedure (05/05/24) History of arthroscopy of left knee History of back surgery History of total replacement of both hip joints Social History Household Members: None Housing: House Do you presently have visiting nurse or other home services: No Alcohol intake: current Alcohol intake frequency: a few times a month Alcohol type: beer Patient Tobacco Use Status: Former Tobacco user service: Yes Office Procedures 6 Minute Walk Time:: 10:22 SPO2 % at rest: 97 Pulse at rest: 98 SPO2 % during excercise: 93 Pulse during excercise: 122 SPO2 % after excercise: 95 Pulse after excercise: 106 Distance in yards walked: 285 Cecy Score: 7 Performance Observations:: Patient walked unassisted on level ground. Patient was able to complete the walk maintaining O2 saturation of 93% or greater and pulse rate of 122 or less. Patient does tire when walking a distance. Did not require the use of supplemental oxygen. [address] - 6 Minute Walk Spirometry Testing Spirometry Comments: In office spirometry completed with results given to Dr Mckeon. 48656- Spirometry Assessment & Plan Assessment & Plan (1) COPD (chronic obstructive pulmonary disease): Code(s): J44.9 - Chronic obstructive pulmonary disease, unspecified Category: Medical Plan: Test for hypoxemia on walking. 6 minutes walk test Orders: Orders AMB Spirometry Testing 06/09/24 J44.9 - Chronic obstructive pulmonary disease, unspecified AMB 6 minute walk 06/09/24 J44.9 - Chronic obstructive pulmonary disease, unspecified, R91.8 - Other nonspecific abnormal finding of lung field Coding Level of Care Code Established Pt Est Pt Level 1 (20676) Patient Type Established Diagnoses COPD (chronic obstructive pulmonary disease) J44.9 CPT Codes Coding ([id number]) Spirometry - CPT: 08695- Spirometry ([id number]) Comment NURSE VISIT ONLY
[2024-06-09 10:47] VITALS: PULSE 98; O2SAT 97
--- OUTSIDE RECORDS SUMMARY | 2024-06-09 11:56 | XMS_ITS | Patient Health Record ---
Author Organization Koby Peña III, MD Address [address] [place] [address] Care Team Providers Care Boxing Promoter Name Role Phone Koby Pñea Primary Care Provider Allergies Allergen (clinical drug [...] ff Reviewed date:08/09/2023 01:08:24 PM Interpretation: Performing Lab:[facility], [address] [place] [phone] Notes/Report: White Blood Count 8.8 4.8-10.8 X10*3/uL [...] NRBC Abs Auto 0.000 0.0-0.012 X10*3/uL Comprehensive Canal [place]. Panel Fa st Reviewed date:08/09/2023 01:08:24 PM Interpretation: Performing Lab:[facility], [address] [place] [phone] Notes/Report: Sodium 141 135-145 mmol/L Potassium 4.3 3.3-5.1 mmol/L Chloride 105 96-108 mmol/L Carbon Dioxide 27 22-29 mmol/L Anion Gap 13 12-20 Blood Urea Nitrogen 16 9-16 mg/dL Creatinine 0.78 0.5-1.4 mg/dL Estimated Glomerular Filt Rate > 60 NOTE: For -Surinamese individuals, multiply the result by 1.210. Chronic [...] Ferritin Reviewed date:08/09/2023 01:08:24 PM Interpretation: Performing Lab:[facility], [address] [place] [phone] Notes/Report: Ferritin 86 20-250 ng/mL Lipid Panel Reviewed date:08/09/2023 01:08:24 PM Interpretation: Performing Lab:[facility], [address] [place] [phone] Notes/Report: Triglycerides 160 <150 mg/dL Desirable Triglyceride: [...] me Reviewed date:09/14/2023 04:19:47 AM Interpretation: Performing Lab:[facility], [address] [place] [phone] Notes/Report: Alk.Phos Isoenzymes Total 130 35-144 U/L Alk.Phos Isoenzymes Intest 9 1-24 % Alk.Phos Isoenzymes Bone 34 28-66 % Alk.Phos Isoenzymes Liver 57 25-69 % Alk.Phos Isoenzymes Placental 0 <=0 % Alk.Phos Iso. Macrohepatic 0 <=0 % THIS TEST WAS PERFORMED AT: [facility] [id number] [place] [phone] MARYSOL SOLANO MD,PHD Alk.Phos Isoenzymes Interp TNP Complete Blood Count Auto Di ff Reviewed date:11/27/2023 03:44:00 PM Interpretation: Performing Lab:[facility], [address] [place] [phone] Notes/Report: White Blood Count 8.0 4.8-10.8 X10*3/uL [...] NRBC Abs Auto 0.000 0.0-0.012 X10*3/uL Comprehensive [place]. Panel Fa st Reviewed date:11/27/2023 03:44:00 PM Interpretation: Performing Lab:[facility], [address] [place] [phone] Notes/Report: Sodium 144 135-145 mmol/L Potassium 4.3 3.3-5.1 mmol/L Chloride 107 96-108 mmol/L Carbon Dioxide 29 22-29 mmol/L Anion Gap 12 12-20 Blood Urea Nitrogen 16 9-16 mg/dL Creatinine 0.81 0.5-1.4 mg/dL Estimated Glomerular Filt Rate > 60 NOTE: For -Surinamese individuals, multiply the result by 1.210. Chronic [...] Panel Reviewed date:11/27/2023 03:44:00 PM Interpretation: Performing Lab:[facility], [address] [place] [phone] Notes/Report: Triglycerides 159 <150 mg/dL Desirable Triglyceride: [...] Antigen Reviewed date:11/27/2023 03:44:00 PM Interpretation: Performing Lab:[facility], [address] [place] [phone] Notes/Report: Prostate Specific Antigen 1.46 <0.05-4.0 ng/mL PSA methodology: Davila Alinity i Chemiluminescent Microparticle Immunoassay (CMIA) Complete Blood Count Auto Di ff Reviewed date:03/14/2024 05:01:23 AM Interpretation: Performing Lab:[facility], [address] [place] [phone] Notes/Report: White Blood Count 12.4 4.8-10.8 X10*3/uL [...] gy Reviewed date:03/14/2024 05:01:23 AM Interpretation: Performing Lab:[facility], [address] [place] [phone] Notes/Report: Hold Lav - Possible Hematology SEE NOTE Specimen will be held untested for 8 hours. Call Hematology if testing is desired. Prothrombin Time INR Reviewed date:03/14/2024 05:01:23 AM Interpretation: Performing Lab:[address] [phone] Notes/Report: Prothrombin Time 12.5 10.9-12.4 SEC INTERNATIONAL [...] Time Reviewed date:03/14/2024 05:01:23 AM Interpretation: Performing Lab:[address] [phone] Notes/Report: Partial Thromboplastin Time 30.1 26.0-36.8 SEC For information regarding the monitoring of direct thrombin inhibitors, please refer to Pharmacy. Comprehensive Met. Panel Reviewed date:03/14/2024 05:01:23 AM Interpretation: Performing Lab:[address] [phone] Notes/Report: Sodium 140 135-145 mmol/L Potassium 3.9 [...] Acid Reviewed date:03/14/2024 05:01:23 AM Interpretation: Performing Lab:[facility], [address] [place] [phone] Notes/Report: Lactic Acid 4.2 0.5-2.0 mmol/L Critical value for test LATIC: Results called to and read back by: DAVIE Person calling: ROXANNE Date:03/07/2024 Time: 2010 Troponin-I High Sensitivity Reviewed date:03/14/2024 05:01:23 AM Interpretation: Performing Lab:[facility], [address] [place] [phone] Notes/Report: Troponin-I High Sensitivity < 2.7 <3.5-35.0 ng/L The Davila high sensitivity Troponin-I results should be used in conjunction with other diagnostic information such as ECG, clinical observations and information, and patient symptoms to aid in the diagnosis of GA. B Type Natriuretic Peptide Reviewed date:03/14/2024 05:01:23 AM Interpretation: Performing Lab:[facility], [address] [place] [phone] Notes/Report: B Type Natriuretic Peptide 10 <100 pg/mL For those patients who are being treated with Natrecor (nesiritide, recombinant BNP), BNP testing should be performed at least two hours post treatment in order to ensure that only endogenous levels of BNP are detected. Demetris Tee Reviewed date:03/14/2024 05:01:23 AM Interpretation: Performing Lab:[facility], [address] [place] [phone] Notes/Report: Demetris Tee See Note Specimen held untested for 24 hours; Call to request Chemistry testing. Ethanol Reviewed date:03/14/2024 05:01:23 AM Interpretation: Performing Lab:[facility], [address] [place] [phone] Notes/Report: Ethanol < 10 Serum/plasma ethanol results are to be used for medical/treatment purposes only. SARS-CoV2/FLU/RSV Reviewed date:03/14/2024 05:01:24 AM Interpretation: Performing Lab:[facility], [address] [place] [phone] Notes/Report: Influenza A PCR NEGATIVE Negative Influenza [...] by authorized laboratories. Testing performed on the TreSensa GeneXpert utilizing real-time RT-PCR. All SARS CoV2 and positive influenza A/B results are reported to [facility]. Blood Culture (First) Reviewed date:03/14/2024 05:01:23 AM Interpretation: Performing Lab:[address] [phone] Notes/Report: Blood Culture (First) No growth after 5 days. Blood Culture (Second) Reviewed date:03/14/2024 05:01:23 AM Interpretation: Performing Lab:[address] [phone] Notes/Report: Blood Culture (Second) No growth after 5 days. Lactic Acid-LAB USE ONLY Reviewed date:03/14/2024 05:01:24 AM Interpretation: Performing Lab:[address] [address] Notes/Report: Lactic Acid-LAB USE ONLY 2.2 0.5-2.0 mmol/L Critical value for test(s): LACTA Results called to and read back by: NAVEED Person calling: CORETTA Date: 03/07/24 Time: 2249 D Dimer High Sensitivity Reviewed date:03/14/2024 05:01:24 AM Interpretation: Performing Lab:[facility], [address] [place] [phone] Notes/Report: D Dimer High Sensitivity 823 D-DIMER [...] Gel Reviewed date:03/14/2024 05:01:24 AM Interpretation: Performing Lab:[facility], [address] [place] [phone] Notes/Report: Hold Green Gel See Note Specimen held untested for 24 hours; Call to request Chemistry testing. CT angio chest PE protocol Reviewed date:03/14/2024 05:01:24 AM Interpretation: Performing Lab: Notes/Report: [address] [address] [address] Scan Report Signed Patient: Jaren Up MR#: [id number] 287 : 1945 Acct:[id number] Age/Sex: 79 / M ADM Date: 03/07/24 Loc: [place] [address]: Subhash Welch MD Ordering Physician: Jeffrey Ellsworth MD Date of Service: 03/07/24 Procedure(s): CT angio chest PE protocol Accession Number(s): [id number] cc: Koby Peña MD; Jeffrey Ellsworth MD [...] by: Clarence Block MD 03/07/2024 11:20 PM [facility] Dictated By: Clarence Block MD Signed By: <Electronically signed by Clarence Block MD in OV> 03/07/24 3880 DD/ 1849 TD/TT: 03/07/241919 Soils Technician: [address] [address] [address] Scan Report Signed Patient: Kane Up MR#: [id number] 287 : 1945 Acct:[id number] Age/Sex: 79 / M ADM Date: 03/07/24 Loc: [place] [address]: Niki Welch MD Ordering Physician: Jeffrey Ellsworth MD Date of Service: 03/07/24 Procedure(s): CT ang io chest PE protocol Accession Number(s): [id number] cc: Koby Peña MD; Jeffrey Ellsworth MD [...] by: Clarence Block MD 03/07/2024 11:20 PM [facility] Dictated By: Clarence Block MD Signed By: <Electron icall signed by Clarence Block MD in OV> 03/07/24 2320 DD/ 1849 TD/TT: 03/07/24 1920 Soils Technician: AMITA XR chest 2V Reviewed date:03/14/2024 05:01:24 AM Interpretation: Performing Lab: Notes/Report: [address] [address] XRay Report Signed Patient: Jaren Up MR#: [id number] 287 : 1945 Acct:[id number] Age/Sex: 79 / M ADM Date: 03/07/24 Loc: HO.ED Attending Dr: Ordering Physician: Generic ED Physician Date of Service: 03/07/24 Procedure(s): XR chest 2V Accession Number(s): [id number] cc: Koby Peña MD; Generic ED Physician [...] by: Melvi Wong MD 03/07/2024 04:48 PM [facility] Dictated By: Melvi Wong MD Signed By: <Electronically signed by Melvi Wong MD in OV> 03/07/24 1648 DD/ 1545 TD/TT: 03/07/24 1550 Soils Technician: [place] [address] XRay Report Signed Patient: Kane Up MR#: [id number] 287 : 1945 Acct:[id number] Age/Sex: 79 / M ADM Date: 03/07/24 Loc: .ED Attending Dr: Ordering Physician: Generic ED Physician Date of Service: 03/07/24 Procedure(s): XR chest 2V Accession Number(s): [id number] cc: Koby Peña MD; Generic ED Physician [...] 03/07/24 1648 DD/ 1545 TD/TT: 03/07/24 1550 Soils Technician: COREY XR shoulder RT min 2V Reviewed date:03/14/2024 05:01:24 AM Interpretation: Performing Lab: Notes/Report: [address] [address] XRay Report Signed Patient: Jaren Up MR#: [id number] 287 : 1945 Acct:[id number] Age/Sex: 79 / M ADM Date: 03/07/24 Loc: HO.ED Attending Dr: Ordering Physician: Generic ED Physician Date of Service: 03/07/24 Procedure(s): XR shoulder RT min 2V Accession Number(s): [id number] cc: Koby Peña MD; Generic ED Physician [...] 03/07/24 1737 DD/ 1640 TD/TT: 03/07/24 1648 Soils Technician: DANYA [address] [address] XRay Report Signed Patient: Kane Up MR#: [id number] 287 : 1945 Acct:[id number] Age/Sex: 79 / M ADM Date: 03/07/24 Loc: HO.ED Attending Dr: Ordering Physician: Generic ED Physician Date of Service: 03/07/24 Procedure(s): XR neeraj ta RT min 2V Accession Number(s): [id number] cc: Koby Peña MD; Generic ED Physician [...] by: Pierce Trevino MD 03/07/2024 05:37 PM [facility] Dictated By: Pierce Trevino MD Signed By: <Electron ically signed by Pierce Trevino MD in OV> 03/07/24 1737 DD/ 1640 TD/TT: 03/07/24 1648 Soils Technician: DANYA Complete Blood Count Auto Di ff Reviewed date:03/14/2024 05:01:23 AM Interpretation: Performing Lab:[facility], [address] [place] [phone] Notes/Report: White Blood Count 9.4 4.8-10.8 X10*3/uL [...] Panel Reviewed date:03/14/2024 05:01:23 AM Interpretation: Performing Lab:[address] [address] Notes/Report: Sodium 142 135-145 mmol/L Potassium 3.8 [...] ONLY Reviewed date:03/14/2024 05:01:23 AM Interpretation: Performing Lab:[address] [address] Notes/Report: Lactic Acid-LAB USE ONLY 1.2 0.5-2.0 mmol/L PSA,Total (Free>4and<10) Reviewed date:03/14/2024 05:01:23 AM Interpretation: Performing Lab:[facility], [address] [place] [phone] Notes/Report: PSA,Total (Free>4and<10) 2.51 0.00-4.00 ng/mL A [...] between 4.0 and 10.0 ng/mL. PSA methodology: Re5ult Alinity i Chemiluminescent Microparticle Immunoassay (CMIA) Pathology Reviewed date:05/29/2024 09:16:13 AM Interpretation: Performing Lab:[facility], [address] [place] [phone] Notes/Report: ------ Name: Jaren Up Age/Sex: 79/M : 1945 Unit#: [id number] Attend Dr: Vasiliy Alvarado MD Re05/05/24 Status : [facility] Location: [facility] Disch: ------ SPEC : [id number] RECD: 05/05/24 STATUS: KARIN CLIFFORD NUM: [id number] LISA: 05/05/24-[address] [facility] [address]: Huan Barker ENTERED: 05/05/24-11 42 [...] Jaren Up Age/Sex: 79/M : 1945 Unit#: [id number] Attend Dr: Vasiliy Alvarado MD Re05/05/24 Status : [facility] Location: [facility] Disch: ------ SPEC : [id number] RECD: 05/05/24 STATUS: KARIN Chago NUM: [id number] LISA: 05/05/24-[address] [facility] [address]: Huan Barker ENTERED: 05/05/24-11 42 SP TYPE: Surgical OTHR DR: Koby Peña MD, Pasquale MD ORDERED: Gross Micro L3, IHC, Add. immunos/4, CK7, CK20, Gia-3, p40, TTF-1 Copies To: Koby Peña MD [address] [place] [address], [address] [address] Vasiliy Alvarado MD [facility] [address] [place] [phone] [email or web address] Huan Barker [address] [place] [phone] [email or web address] ------ Signed (signature on file) Promise Benitez MD 05/09/24 0817 ------ END OF REPORT CT biopsy lung RT Reviewed date:05/29/2024 09:16:13 AM Interpretation: Performing Lab: Notes/Report: [address] [address] [address] Scan Report Signed Patient: Jaren Up MR#: [id number] 287 : 1945 Acct:[id number] Age/Sex: 79 / M ADM Date: 05/05/24 Loc: [facility] Attending Dr: Vasiliy Alvarado MD Ordering Physician: Vasiliy Alvarado MD Date of Service: 05/05/24 Procedure(s): CT biopsy lung RT Accession Number(s): [id number] cc: Koby Peña MD; Vasiliy Alvarado MD Report Number: [id number]: Total DLP = 186.00 mGy-cm PET avid [...] by: Oli Shirley MD 05/11/2024 01:47 PM [facility] Dictated By: Huan Barker Signed By: <Electronically signed by Huan Barker in OV> 05/11/24 1347 <Electronically signed by Oli Shirley MD in OV> 05/11/24 1349 DD/ 1041 TD/TT: 05/05/24 1120 Soils Technician: [place] [address] CT Scan Report Signed Patient: Kane Up MR#: [id number] 287 : 1945 Acct:[id number] Age/Sex: 79 / M ADM Date: 05/05/24 Loc: .[facility] Attending Dr: Maia Tolbert MD Ordering Physician: Vasiliy Alvarado MD Date of Service: 05/05/24 Procedure(s): CT bio psy lung RT Accession Number(s): [id number] cc: Koby Peña MD; Vasiliy Alvarado MD [...] 05/11/24 1349 DD/ 1041 TD/TT: 05/05/24 1120 Soils Technician: Reason For Referral Reason Evaluate and Treat Diagnosis 1 Right shoulder pain (M25.511) Referral Organization Koby Peña III, MD Referring Provider First Name Koby Referring Provider Last Name Peña Referring Provider Speciality Internal M edicine Referred Provider [facility], Orthopedic Surgeons Referred Provider Specialty Orthopedic S fito General Notes DColleen 03/21/2024 03:51:49 PM > Faxed referral and progress note., Colleen Kearney 05/05/2024 03:57:09 PM > patient stated that his right shoulder pain was getting better and is holding off on seeing [facility]. Patient stated he spoke with Dr. [...] Problem Status W/U Status Risk Notes Problem 7596894 Former smoker (Z87.891) Active confirmed He seems motivated not to smoke. We formulated a plan to prevent relapse in time to stress and illness. Problem 274999697 Overweight (E66.3) Active confirmed He has gained 2 pounds. His body mass index is 29. We made a plan to lose weight at a rate of one half of a pound per week Problem 47388322 Allergy to sulfa drugs (Z88.2) Active confirmed Problem 936608686 Mixed hyperlipidemia (E78.2) Active confirmed His lipids are currently stable and no change in his regimen as necessary. Problem 463673782 Low back pain (M54.5) Active confirmed He has had surgery on his lumbar spine for degenerative disc disease and impingement of the left L5 nerve root at the foramen. Problem COPD - Chronic obstructive pulmonary disease (44638649) COPD (chronic obstructive pulmonary disease) (J44.9) Active confirmed He had a re cent hospitalization for respiratory failure. He is doing well now with prednisone. This was continued until he sees his pulmonary physician. He is comfortable at rest or with prolonged exertion becomes dyspneic and tachycardic. He is no longer smoking. 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 He has recovered from that. Problem 824733438 History of iron deficiency anemia (Z86.2) Active confirmed His iron deficiency anemia has resolved. He has not noticed any bleeding. He is compliant with his treatment. His ferritin is 86. Problem 673241196 Primary osteoarthritis of both knees (M17.0) Active confirmed He has had knee surgery. He will continue on current therapy and be monitored carefully. Problem 71203140 Pulmonary emphysema, unspecified emphysema type (J43.9) Active confirmed His lung diseas e is stable. He is no longer smoking. He is short of breath with exertion but not during the course of daily life. Problem 603775771 Rib lesion (M89.9) Active confirmed A CT [...] pulmonary neoplasm. His PSA is normal. Problem 7277040977504 Benign prostatic hyperplasia with lower urinary tract symptoms (N40.1) Active confirmed He rises from sleep once and sometimes twice a night. He had no nodules in his prostate. We discussed modifications to his lifestyle he could make to reduce nocturia. Problem 700759348 Pulmonary neoplasm (D49.1) Active confirmed He has laurie ral abnormal masslike densities in the left lower lobe and destruction of the right third rib. A needle biopsy of the rib mass has been ordered under CT guidance. Problem 74176479 ASHD (arterioscleroti c heart disease) (I25.10) Active confirmed He denies any recent angina palpitations or syncope. Current therapy was continued. 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 Problem 831326484 Compression fracture of L1 vertebra, initial encounter [...] Date Provider Diagnosis Koby Peña III, MD [address] [place] [address] [place] [address] 08/11/2023 Koby Peña Mixed hyperlipidemia E78.2 ; Benign prostatic hyperplasia with lower urinary tract symptoms N40.1 ; Overweight E66.3 ; COPD (chronic obstructive pulmonary disease) J44.9 ; Pulmonary emphysema, unspecified emphysema type J43.9 ; ASHD (arteriosclerotic heart disease) I25.10 ; History of iron deficiency anemia Z86.2 and Primary osteoarthritis of both knees M17.0 Koby Peña III, MD [address] [place] [address] [place] [address] 12/03/2023 Kboy Peña Mixed hyperlipidemia E78.2 ; Benign prostatic hyperplasia with lower urinary tract symptoms N40.1 ; COPD (chronic obstructive pulmonary disease) J44.9 ; Pulmonary emphysema, unspecified emphysema type J43.9 ; ASHD (arteriosclerotic heart disease) I25.10 ; Primary osteoarthritis of both knees M17.0 ; Overweight E66.3 and Former smoker Z87.891 Koby Peña III, MD [address] [place] [address] [place] [address] 03/17/2024 Koby Peña Mixed hyperlipidemia E78.2 ; [...] Pulmonary neoplasm D49.1 Koby Peña III, MD [address] [place] [address] [place] [address] 03/31/2024 Koby Peña Mixed hyperlipidemia E78.2 ; Pulmonary emphysema, unspecified emphysema type J43.9 ; Rib lesion M89.9 ; COPD (chronic obstructive pulmonary disease) J44.9 ; Primary osteoarthritis of both knees M17.0 ; ASHD (arteriosclerotic heart disease) I25.10 ; Former smoker Z87.891 ; Benign prostatic hyperplasia with lower urinary tract symptoms N40.1 and Overweight E66.3 Koby Peña III, MD [address] [place] [address] [place] [address] 05/17/2024 Koby Peña Metastatic non-small cell lung [...] initial encounter S32.010A Koby Peña III, MD [address] [place] [address] [place] [address] 03/14/2024 Koby Peña III, MD [address] [place] [address] [place] [address] 03/15/2024 Koby Peña III, MD [address] [place] [address] [place] [address] 03/22/2024 Koby Peña III, MD [address] [place] [address] [place] [address] 04/11/2024 Koby Peña III, MD [address] [place] [address] [place] [address] 05/18/2024 Koby Peña Assessments Encounter Date Diagnosis [...] This was continued until he sees his pulmonary physician. He is comfortable at rest or with [...] This was continued until he sees his pulmonary physician. He is comfortable at rest or with [...] This was continued until he sees his pulmonary physician. He is comfortable at rest or with [...] Order Date PROFILE, FASTING (COMPREHENSIVE METABOLI C) 02/05/2021 PROFILE, FASTING (COMPREHENSIVE METABOLI C) 08/11/2023 PROFILE, FASTING (COMPREHENSIVE METABOLI C) 05/13/2023 PROFILE, FASTING (COMPREHENSIVE METABOLI C) 12/06/2020 PROFILE, FASTING (COMPREHENSIVE METABOLI C) 11/28/2022 PROFILE, FASTING (COMPREHENSIVE METABOLI C) 06/11/2021 PROFILE, FASTING (COMPREHENSIVE METABOLI C) 12/03/2023 LIPID PANEL 02/05/2021 LIPID PANEL 12/06/2020 LIPID PANEL 11/28/2022 LIPID PANEL 06/11/2021 FERRITIN 05/13/2023 PSA, TOTAL 06/11/2021 PSA, TOTAL 12/03/2023 PSA, TOTAL 08/11/2023 PSA, TOTAL 12/06/2020 PSA, TOTAL 11/28/2022 CBC w DIFF 06/11/2021 CBC w DIFF 02/05/2021 CBC w DIFF 12/06/2020 CBC w DIFF 11/28/2022 CBC WITH AUTO DIFF 12/03/2023 CBC WITH AUTO DIFF 08/11/2023 CBC WITH AUTO DIFF 05/13/2023 Lipid Panel 12/03/2023 Lipid Panel 08/11/2023 Lipid Panel 05/13/2023 Alkaline Phosphatase Isoenzyme 02/07/202 4 Next Appt Details Provider Name:Koby Peña, 06/14/2024 09:45:00 AM, [address] [facility] [address], [place], [address], Provider Name:Koby Peña, 12/02/2024 10:00:00 AM, [address] [place] [address] [address], [place], [address], Insurance Providers Payer Name Payer Address Payer Phone Subscriber Number Group Number Insured Name Patient Relationship to Insured Coverage Start Date Coverage End Date MEDICARE NGS [address] [place] [id number] Jaren Up Self - patient is the insured [facility] [address] [place], [place] [id number] Jeovanny Jaren Self - patient is [...] bilateral knee replacements Bronchoscopy for interstitial pneumonia, [facility] 07/2007 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 De León 03/2009 Incomplete colonoscopy, [facility], Dr. Mo, severe sigmoid diverticulosis 01/2010 Partial left medial meniscec geovani and debridement, Dr. Armand Milner, [facility] 03/2010 lumbar spine fusion, [facility] 2016 Upper endoscopy and colonosc opy, Dr. Montague, [facility], for iron deficiency anemia 04/2018 No history Hospitalization History Reason Date(Month/Year) Hospitalized for five days d ue to respiratory distress and shoulder injury. No history
--- OUTSIDE RECORDS SUMMARY | 2024-06-09 11:56 | XMS_ITS | Clinical Summary ---
Author Organization [facility] Address [address] [place] [address] Phone Care Team Providers Care Director Fraud Name Role Phone Unavailable Primary Care Provider Unavailabl e Encounters Date Type Department Care Team Description 03/28/2024 9:02 AM EST - 03/28/2024 11:59 PM EST Hospital Encounter [facility] PET Scan [address] [place] [address] Other nonspecific abnormal finding of [...] Signed Date: 03/29/2024 10:06 ET Workstation ID: [id number] Transcribed By: Self Edit Transcribed Date: 03/28/2024 [...] Signed Date: 03/29/2024 10:06 ET Workstation ID: [id number] Transcribed By: Self Edit Transcribed Date: 03/28/2024 11:30 ET [facility] PROCEDURES Final Result from Last 3 Months Insurance MEDICARE [facility]
--- OUTSIDE RECORDS SUMMARY | 2024-06-09 11:56 | XMS_ITS ---
Author Organization Koby Peña III, MD Address [address] [place] [address] Care Team Providers Care Chef German Name Role Phone Koby Peña Primary Care Provider REASON FOR VISIT Message Social History Sex Assigned At : Social History Observation Description Sex Assigned At Male Encounters Encounter Location Date Provider Diagnosis Koby Peña III, MD [address] [place] [address] [place] [address] 05/18/2024 Koby Peña Plan Of Treatment Next Appt Details Provider Name:Koby Peña, 06/14/2024 09:45:00 AM, [address] [place] [address] [place], [address], Provider Name:Koby Peña, 12/02/2024 10:00:00 AM, [address] [place] [address] [place], [address], Progress Notes * Jaren CANELA EDOB:[birth year] (79 yo M)Acc No.[id number]:05/18/2024 Patient:?Jaren CANELA :1945???Age:79 Y???Sex:Male Address:[address] [place] [address] * true * Date:? Generated for Printi ng/Faxing/eTransmitting on:?06/09/2024 11:55 AM EST
--- OUTSIDE RECORDS SUMMARY | 2024-06-09 11:56 | XMS_ITS ---
Author Organization Koby Peña III, MD Address [address] [place] [address] Care Team Providers Care District Manager Postal Service Name Role Phone Koby Peña Primary Care Provider [phone] REASON FOR VISIT Message Social History Sex Assigned At : Social History Observation Description Sex Assigned At Male Encounters Encounter Location Date Provider Diagnosis Koby Peña III, MD [address] [place] [address] [place] [address] 04/11/2024 Koby Peña Plan Of Treatment Next Appt Details Provider Name:Koby Peña, 06/14/2024 09:45:00 AM, [address] [place] [address] [place], [address], Provider Name:Koby Peña, 12/02/2024 10:00:00 AM, [address] [place] [address] [place], [address], Progress Notes * Jaren CANELA EDOB:[birth year] (79 yo M)Acc No.[id number]:04/11/2024 Patient:?Jaren CANELA :1945???Age:79 Y???Sex:Male Address:[address] [facility] [place] [address] * true * Date:? Generated for Printi ng/Faxing/eTransmitting on:?06/09/2024 11:56 AM EST
--- OUTSIDE RECORDS SUMMARY | 2024-06-09 11:56 | XMS_ITS | Patient Health Record ---
Author Organization [facility] Address [address] [place] [address] Care Team Providers Care Azure Principal Solution Specialist Name Role Phone Koby Peña MD Primary Care Provider UnavailMelquiades Vargas Unavailable [phone] Allergies Allergen (clinical drug ingredient) Drug/Non Drug [...] Start Date Coverage End Date Medicare [facility] [address] [place] [address] [id number] Jaren Up Self - patient is the insured [employer] [address] [place] [address] [id number] Jaren Up Self - patient is the insured Medical (General) History Medical History History ICD Code Broken bones Heart disease Lung disease Measles Joint implants/screws Surgical History Surgery Date(Month/Year) back fusion 2016 left hip replacement 2017 right hip 2018 testicular tumor removal 1971 hernia? 1960
--- OUTSIDE RECORDS SUMMARY | 2024-06-09 11:56 | XMS_ITS ---
Author Organization Koby Peña III, MD Address [address] [place] [address] Care Team Providers Care [employer] Name Role Phone Koby Peña Primary Care Provider [phone] Allergies Allergen (clinical drug ingredient) Drug/Non Drug [...] Date Provider Diagnosis Koby Peña III, MD [address] [place] [address] [address] [facility] [place] [address] 05/17/2024 Koby Peña Metastatic non-small cell lung [...] This was continued until he sees his document improvement specialist. He is comfortable at rest or [...] cancer Provider Name:Koby Peña, 06/14/2024 09:45:00 AM, [address] [place] [address] [address], [place], [address], Provider Name:Koby Peña, 12/02/2024 10:00:00 AM, [address] [place] [address] [address], [place], [address], Progress Notes * Jaren CANELA EDOB:[birth year] (79 yo M)Acc No.[id number]:05/17/2024 Progress Notes Patient:?Jaren CANELA Provider:?Koby Peña MD :1945???Age:79 Y???Sex:Male Rey e:05/17/2024 Address:[address] [place], [place] [id number] Subjective: * Chief Complaints: * ???Stage IV [...] 1964bilateral knee replacements Bronchoscopy for interstitial pneumonia, [facility] 07/2007Direct laryngoscopy with biopsy of paralyzed left vocal cord, Dr. De León 03/2009Incomplete colonoscopy, [facility], Dr. Mo, severe sigmoid diverticulosis 01/2010Partial left medial meniscectomy and debridement, Dr. Armand Milner, [facility] 03/2010lumbar spine fusion, [facility] 2016Upper endoscopy and colonoscopy, Dr. Montague, [facility], for iron deficiency anemia 04/2018No history [...] year??No ?Points?0 ?Interpretation?Negative ???He was born in [facility]. 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 He has had no toxic exposures. He has no adventist objections to blood transfusion. He lives in [place] with his sister. Smoking - Quit in [...] Date & Time - 03/08/2024 04:44 AM)?ValueReference Range?Gkjhdj761100-261 - mmol/L?Blood Urea Qpdplaya94M5-68 - mg/dL?Creatinine0.680.5-1.4 - mg/dL?Glucose Cdxqnd40150-454 - mg/dL?Calcium8.68.4-10.2 - mg/dL ?Potassium3.83.3-5.1 - mmol/L?Lzqzwblm562S51-021 - mmol/L ?Carbon Urschsw1213-44 - mmol/L?Anion Zos4050-70 - ?Estimated Glomerular Filt Rate> 60-?Creatinine Clr [...] - 03/07/2024 04:22 PM)?ValueReference Range?B Type Natriuretic Dofhkfz61<100 - pg/mL ???Lab:Prothrombin Time INR (Order Date [...] - 03/07/2024 04:22 PM)?ValueReference Range?D Dimer High Gznppzsvxsw112- NG/ML ???Lab:Ethanol (Order Date - 03/07/2024) (Collection [...] This was continued until he sees his document improvement specialist. He is comfortable at rest or [...] non small cell lung cancer * Procedure Codes:?45587 MEASU RE BLOOD OXYGEN LEVEL * Preventive [...] Peña MD Date:?05/07 Generated for Elisabeth andersen/Dina/Tulioitting on:?06/09/2024 11:55 AM EST History and Physical Notes * [...]
== END 2024-06-09 10:35 | disposition home or self-care (01) ==
PROVIDERS: PCP Internal Medicine Medical Oncology; Visit Provider Internal Medicine
DX: J44.9 Chronic obstructive pulmonary disease, unspecified (principal)

== ENCOUNTER → 2024-06-09 10:10 | Outpatient (BNVA) | payer MEDICARE, SELFPAY | PROVIDERS: PCP Internal Medicine Medical Oncology; Visit Provider Internal Medicine | DX: J44.9 Chronic obstructive pulmonary disease, unspecified (principal); R91.8 Other nonspecific abnormal finding of lung field | CPT/HCPCS: 94010; 94618; 99211 ==

== ENCOUNTER 2024-06-30 10:27 | Day surgery (SDC) | payer MEDICARE, SELFPAY ==
[2024-06-28 10:04] VITALS: BMI 28.2
[2024-06-28 10:11] VITALS: BP 116/63; PULSE 92; RESP 22; O2SAT 97
--- NOTE | 2024-06-29 08:14 | P.HPSUR_ITS ---
Pre-Procedural Eval Section A - 24 Hr Update-Section A only Date of Service: 07/01/24 The patient is an INPATIENT: No Changes since office visit: No Cold of Flu in the past 2 weeks, No New Medical Problems, No Changes in Medication and No Patient answered all questions Section B - Complete if H&P > 30 days Chief Complaint: Encounter for adjustment and management of vascula Allergies: Allergies Allergy/AdvReac Type Severity Reaction Status Date / Time isoniazid Allergy Intermediate Hives Verified 06/27/24 10:04 Penicillins [PENICILLINS] Allergy Intermediate swelling/hi Verified 06/27/24 10 :04 ves Sulfa (Sulfonamide Allergy Mild Rash Verified 06/27/24 10:04 Antibiotics) [Sulfa (Sulfonamides)] Review of Systems Sugical H&P ROS: Negative: Constitution, Cardiovascular, Respiratory, Neurological, Psychiatric, Hem-Onc, Allergic/Immunologic, Gastrointestinal, Genitourinary, Musculoskeletal, Integumentary, Endocrine and Eyes/Ears/Nose/Throat Exam Surgical H&P Exam: Normal: HEENT, Normal: Heart, Normal: Lungs, Normal: Extremities, Normal: Abdomen, Normal: Skin and Normal: Neurological Plan I have reviewed the history and physical and performed a pertinent physical examination on my patient. No changes have occurred unless specified. Time Spent With Patient Time: Total time managing care of this patient today ____ minutes.
--- NOTE | ~2024-06-30 | FL_ITS ---
EXAMINATION: FL GUIDANCE ONLY HISTORY: portacath COMPARISON: None available. TECHNIQUE: Fluoroscopy time: 16.1 seconds. Cumulative Dose: 2.3187 mGy. DAP: 1.0086 mGym2 Images: 1. FINDINGS: A single fluoroscopic spot film of the right upper chest demonstrates a Port-A-Cath in place. FL/FL guidance in OR IMPRESSION: Fluoroscopy during procedure. Please see procedure report for additional information. Electronically signed by: Koby Mays MD 06/30/2024 03:51 PM EDT
[2024-06-30 11:03] VITALS: BMI 28.2
[2024-06-30] MEDS: Lactated Ringers 1,000 ML 100 ML IVCONT (11:11)
[2024-06-30 11:18] VITALS: BP 116/68; PULSE 97; RESP 18; TEMP 36.7; O2SAT 97
[2024-06-30] MEDS: Albuterol Sulfate (0.083%) 2.5 MG/3 ML VIAL.NEB INHALE (13:44)
--- NOTE | 2024-06-30 14:50 | HO.ANESPROP2 ---
Documented by User: Rosamaria Wang NP 06/29/24 09:58 HPI - Anesthesia Eval Consult details Narrative: 79yo M for Port-a-Cath Insertion with fluoroscopy pulmo optmized. Follows C pulmo prn O2, prednisone 10mg daily PMFSH Active Problems Active Problems: All Active Problems Rib lesion (Acute) Lung mass (Acute) Alcohol intake above recommended sensible limits (Acute) Chest wall mass (Acute) Acute hypoxemic respiratory failure (Acute) Acute exacerbation of chronic obstructive airways disease (Acute) COPD exacerbation (Acute) Upper respiratory infection (Acute) COPD (chronic obstructive pulmonary disease) (Acute) Past Medical History Medical History Former tobacco use Basal cell carcinoma Testicular cancer Elevated cholesterol DVT (deep venous thrombosis) Cancer COPD (chronic obstructive pulmonary disease) Surgical History Surgical History History of orchiectomy Hx of spinal fusion History of bronchoscopy History of laryngoscopy H/O colonoscopy Hx of surgical procedure (05/05/24) History of arthroscopy of left knee History of total replacement of both hip joints Social History Social History Household Members: None Housing: House Are you a primary professional healthcare representative to a significant other at home: No Do you presently have visiting nurse or other home services: Yes (home O2) Alcohol intake: current Alcohol intake frequency: a few times a month Alcohol type: beer Patient Tobacco Use Status: Former Tobacco user Tobacco use type: Cigarette Years Smoked: 42 Use of substances other than those prescribed or required for medical reasons: No Have you been hit, kicked, punched, or otherwise hurt by someone within the past year? If so, by whom?: No Spiritual Healthcare Practices: none Pentecostal Healthcare Practices: Denominational Cultural Healthcare Practices: none Are you DNR?: No Advance Directives: No (sister is primary contact) Advance Directives Information Provided: Yes (as above noted) Advance Directives on File: No Recently lost weight without trying: No Eating poorly because of decreased appetite: No Nutrition Risks: No Nutritional Risk Poor oral hygiene: No (upper & lower full denture) service: Yes Meds Allergies Allergy/AdvReac Type Severity Reaction Status Date / Time Penicillins [PENICILLINS] Allergy Severe Facial Verified 06/30/24 10:57 Swelling Sulfa (Sulfonamide Allergy Severe Facial Verified 06/30/24 10:57 Antibiotics) Swelling [Sulfa (Sulfonamides)] isoniazid Allergy Intermediate Hives Verified 06/30/24 10:57 Home Medications ?Medication ?Instructions ?Recorded ?Confirmed ?Last Taken ?Type multivitamin (Daily Multi-Vitamin 1 tab PO QAM 09/12/20 06/28/24 03/07/24 History tablet) pravastatin 80 mg tablet 80 mg PO BEDTIME 09/02/22 06/28/24 03/07/24 History acetaminophen 325 mg tablet 650 mg PO QID PRN Pain 06/28/24 06/28/24 Unknown History (Tylenol) fluticasone furoate 200 1 ea PO QAM 06/28/24 06/28/24 Unknown History mcg-vilanterol 25 mcg/dose inhalation powder (Breo Ellipta) ibuprofen 200 mg tablet 400 mg PO BEDTIME PRN Pain 06/28/24 06/28/24 Unknown History prednisone 10 mg tablet 10 mg PO QAM 06/28/24 06/28/24 06/30/24 History umeclidinium 62.5 mcg/actuation 1 inh PO QAM 06/28/24 06/28/24 Unknown History blister powder for inhalation (Incruse Ellipta) Exam Height,Weight and Vital Signs: Height 6 ft Weight 94.347 kg Last Vital Signs Pulse 92 06/28/24 10:11 Resp 22 H 06/28/24 10:11 BP 116/63 06/28/24 10:11 Pulse Ox 97 06/28/24 10:11 O2 Del Method Room Air 06/28/24 10:11 Pertinent Lab Results Pertinent Lab Results: Laboratory Tests 03/08/24 04:44 WBC 9.4 Hgb 13.1 L Hct 39.5 L Plt Count 183 Sodium 142 Potassium 3.8 Chloride 111 H Carbon Dioxide 23 BUN 22 H Creatinine 0.68 Narrative Narrative: EKG 03/2024 Vent. Rate : 111 BPM Atrial Rate : 111 BPM P-R Int : 140 ms QRS Dur : 088 ms QT Int : 346 ms P-R-T Axes : 065 028 041 degrees QTc Int : 470 ms Sinus tachycardia Otherwise normal ECG When compared with ECG of 07-MAR-2024 16:04, No significant change was found Assessment and Plan Assessment Anesthesia Assessment: Chart Reviewed Documented by User: Paradise Alan DO 06/30/24 15:06 PMFSH Past Medical History Medical History Former tobacco use Basal cell carcinoma Testicular cancer Elevated cholesterol DVT (deep venous thrombosis) Cancer COPD (chronic obstructive pulmonary disease) Family History Family history of problems with anesthesia: No Surgical History Surgical History History of orchiectomy Hx of spinal fusion History of bronchoscopy History of laryngoscopy H/O colonoscopy Hx of surgical procedure (05/05/24) History of arthroscopy of left knee History of total replacement of both hip joints History of Problems with Anesthesia: No Social History Social History Household Members: None Housing: House Are you a primary professional healthcare representative to a significant other at home: No Do you presently have visiting nurse or other home services: Yes (home O2) Alcohol intake: current Alcohol intake frequency: a few times a month Alcohol type: beer Patient Tobacco Use Status: Former Tobacco user Tobacco use type: Cigarette Years Smoked: 42 Use of substances other than those prescribed or required for medical reasons: No Have you been hit, kicked, punched, or otherwise hurt by someone within the past year? If so, by whom?: No Spiritual Healthcare Practices: none Pentecostal Healthcare Practices: Denominational Cultural Healthcare Practices: none Are you DNR?: No Advance Directives: No (sister is primary contact) Advance Directives Information Provided: Yes (as above noted) Advance Directives on File: No Recently lost weight without trying: No Eating poorly because of decreased appetite: No Nutrition Risks: No Nutritional Risk Poor oral hygiene: No (upper & lower full denture) service: Yes Meds Allergies Allergy/AdvReac Type Severity Reaction Status Date / Time Penicillins [PENICILLINS] Allergy Severe Facial Verified 06/30/24 10:57 Swelling Sulfa (Sulfonamide Allergy Severe Facial Verified 06/30/24 10:57 Antibiotics) Swelling [Sulfa (Sulfonamides)] isoniazid Allergy Intermediate Hives Verified 06/30/24 10:57 Home Medications ?Medication ?Instructions ?Recorded ?Confirmed ?Last Taken ?Type multivitamin (Daily Multi-Vitamin 1 tab PO QAM 09/12/20 06/28/24 03/07/24 History tablet) pravastatin 80 mg tablet 80 mg PO BEDTIME 09/02/22 06/28/24 03/07/24 History acetaminophen 325 mg tablet 650 mg PO QID PRN Pain 06/28/24 06/28/24 Unknown History (Tylenol) fluticasone furoate 200 1 ea PO QAM 06/28/24 06/28/24 Unknown History mcg-vilanterol 25 mcg/dose inhalation powder (Breo Ellipta) ibuprofen 200 mg tablet 400 mg PO BEDTIME PRN Pain 06/28/24 06/28/24 Unknown History prednisone 10 mg tablet 10 mg PO QAM 06/28/24 06/28/24 06/30/24 History umeclidinium 62.5 mcg/actuation 1 inh PO QAM 06/28/24 06/28/24 Unknown History blister powder for inhalation (Incruse Ellipta) Exam Exam Date and Time: 06/30/24 1450 Height,Weight and Vital Signs: Height 6 ft Weight 94.347 kg Last Vital Signs Pulse 92 06/28/24 10:11 Resp 22 H 06/28/24 10:11 BP 116/63 06/28/24 10:11 Pulse Ox 97 06/28/24 10:11 O2 Del Method Room Air 06/28/24 10:11 Vital Signs Pulse Rate 92 06/28/24 10:11 Respiratory Rate 22 H 06/28/24 10:11 Blood Pressure 116/63 06/28/24 10:11 Pulse Oximetry 97 06/28/24 10:11 Oxygen Delivery Method Room Air 06/28/24 10:11 Temperature 98.0 F 06/30/24 11:18 Pulse Rate 97 06/30/24 11:18 Respiratory Rate 18 06/30/24 11:18 Blood Pressure 116/68 06/30/24 11:18 Pulse Oximetry 97 06/30/24 11:18 Oxygen Delivery Method Room Air 06/30/24 11:18 Airway Mallampati Class: III TM Dist: >3cm Neck ROM: Full Loose/Missing/Broken Teeth: Yes (edentulous) Heart: S1S2 Lungs: Diminished bilaterally Assessment and Plan Assessment Anesthesia Assessment: Anesthesia Plan Discussed and Chart Reviewed Final Anesthetic Review Family History of Problems with Anesthesia: No History of Problems with Anesthesia: No NPO: Yes ASA Class: III Final Preanesthetic Review: No Changes in Pt Med Stat, Meds/Allgs Chart Reviewed, Consent Obtained/Reviewed and Anes Risks/Benef Reviewed Patient Risk: Intermediate Procedure Risk: Low Anesthetic Plan Anesthetic Plan: MAC: and Agree w/ Assess. and Plan Disposition: Standard PACU
--- NOTE | 2024-06-30 15:36 | W.PM.OPN ---
Operative Note Operative Note Date of Service: 06/30/24 Narrative: Preoperative diagnosis: [] IV access for chemotherapy Postop diagnosis: [] Same Procedure [] right internal jugular vein Port-A-Cath placement with Doppler ultrasound guidance and fluoroscopy Surgeon: [] Christiano Weekend Anchor: [] Consuelo Type of Anesthesia: [] Mac Indication for surgery: [] For IV chemotherapy Findings: [] Patient brought to the operating room, placed on operative table supine position, after an adequate level of MAC anesthesia was induced, patient was placed in the Trendelenburg position, head turned to the left, in the right neck and chest were prepped and draped in usual sterile fashion using Doppler ultrasound guidance, the right internal jugular vein was identified and cannulated using Seldinger technique. A wire was advanced level of superior vena cava under fluoroscopic guidance. A pocket was fashion roughly 3 fingerbreadths below the cannulation site, and tunneled to the wire. Catheter was placed through the subcutaneous tunnel, connected to the port, the port secured to the pocket using 3-0 Vicryl sutures. Dilating sheath was then placed over the wire again under fluoroscopic guidance in the wire retrieved. Pre hep flush catheter was advanced over the dilating sheath to the superior vena cava under fluoroscopic guidance. Peel-away sheath was removed without incident. Antegrade and retrograde flow were easily established. Wounds were irrigated, secured hemostasis, and closed using interrupted inverted dermal 3-0 Vicryl sutures followed by Steri-Strips and sterile dressings. At completion, port was accessed again with antegrade and retrograde flow easily established. Wound was infiltrated at the beginning at the end of the case with 0.5% Marcaine/1% lidocaine. Sponge, needle, and instrument counts reported correct. Patient tolerated the procedure well and emerged from anesthesia stable condition. EBL minimal. Postprocedure chest x-ray in operating room by fluoroscopy demonstrated catheter in good position with no pneumothorax.
[2024-06-30 15:39] VITALS: BP 128/65; PULSE 112; RESP 18; TEMP 36.6; O2SAT 100
[2024-06-30 16:00] VITALS: BP 127/73; PULSE 99; RESP 18; TEMP 36.6; O2SAT 96
== END 2024-06-30 17:15 | disposition home or self-care (01) ==
PROVIDERS: PCP Internal Medicine Medical Oncology; Visit Provider Surgery
PROC: (CPT 36561; principal; 2024-06-30 13:30)
DX: Z45.2 Encounter for adjustment and management of vascular access device (principal); C34.91 Malignant neoplasm of unspecified part of right bronchus or lung; C79.51 Secondary malignant neoplasm of bone; Z87.891 Personal history of nicotine dependence; J44.9 Chronic obstructive pulmonary disease, unspecified; Z79.51 Long term (current) use of inhaled steroids; Z79.52 Long term (current) use of systemic steroids; Z79.899 Other long term (current) drug therapy; Z88.0 Allergy status to penicillin; Z88.2 Allergy status to sulfonamides; Z98.890 Other specified postprocedural states
CPT/HCPCS: 36561; C1788; J0736; J1644; J2003; J2704; J2795; J3010

== ENCOUNTER → 2024-06-30 10:27 | Outpatient (BNV) | payer MEDICARE, SELFPAY | PROVIDERS: PCP Internal Medicine Medical Oncology; Visit Provider Surgery | DX: C79.2 Secondary malignant neoplasm of skin (principal) | CPT/HCPCS: 36561; 76937; 77001 ==

== ENCOUNTER 2024-08-22 14:53 | Inpatient (IN) | payer MEDICARE, SELFPAY ==
[2024-08-22] VITALS (7 sets, daily range): BP systolic 111–152; BP diastolic 61–84; PULSE 86–132; RESP 20–35; TEMP 36.4–36.6; O2SAT 92–100; BMI 27.3
--- NOTE | ~2024-08-22 | CT_ITS ---
CLINICAL HISTORY: hypoxia, dyspnea, known cancer CT angiography chest with contrast. 3D Postprocessing. Comparison: CT/NH/SR - CT ANGIO CHEST PE PROTOCOL - 03/07/24 18:49 EST Findings: Motion and streak artifact limit evaluation. The heart size is normal. RV/LV ratio is normal. The thoracic aorta is normal caliber. No central or large proximal pulmonary emboli. Remaining pulmonary arteries are poorly opacified, not well evaluated. Small hiatal hernia. Mildly prominent mediastinal nodes, decreased in size from prior for example near the AP window measuring 1.4 cm by 0.7 cm. Right chest port noted. Gynecomastia. Decreasing soft tissue erosive mass along the lateral superior right chest wall with adjacent erosion of the 3rd rib and pathologic fracture. Interval sclerosis along the anterior aspect of the rib. Residual size of the soft tissue masses difficult to measure given morphology, on axial measures up to 1.6 cm in transverse dimension, previously 3.2 cm. Suspect sequela of treatment response, should be correlated clinically. No new masses identified. Severe emphysema with bullous changes in the apices and nodular scarring, right more than left, similar to prior. Ill-defined bilateral subcentimeter pulmonary nodules. Per Fleischner criteria: Low-risk patients: CT at 3-6 months, then consider CT at 18-24 months. High-risk patients: CT at 3-6 months, then CT at 18-24 months. Ill-defined tree-in-bud nodular consolidations in the right lower lobe. No significant pleural effusion or pneumothorax. The visualized upper abdomen is unremarkable. Thoracic diffuse idiopathic skeletal hyperostosis. Osteopenia. Multilevel spondylosis with diffuse osteophytosis, facet arthropathy and degenerative disc disease. Heterogeneous multilevel compression deformity some of which may be pathologic similar to prior. Difficult to exclude subtle fractures given the extent of motion artifact. Similar sebaceous cyst anterior to the right pectoralis measuring 2.9 cm. IMPRESSION: 1. No central or large proximal pulmonary emboli. Remaining pulmonary arteries are poorly opacified, not well evaluated. 2. Severe bullous emphysematous changes, with possible superimposed aspiration or pneumonia in the right lower lobe. 3. Suspect posttreatment response with decreasing size of the erosive right chest wall mass, adenopathy, please see above. This document has been electronically signed by: Panda Leija MD on 08/22/2024 21:10:41
--- NOTE | ~2024-08-22 | CT_ITS ---
EXAMINATION: CT HEAD WITHOUT CONTRAST CLINICAL INFORMATION: Ptosis COMPARISON: None available. TECHNIQUE: Contiguous axial imaging was performed from the skull base to vertex without intravenous administration of contrast. This CT examination was performed using dose optimization techniques as appropriate, variously including the following: *Automated exposure control *Adjustment of mA and/or kV according to patient size (this includes techniques or standardized protocols for targeted exams where dose is matched to indication/reason for exam; i.e. extremities or head) *Use of iterative reconstruction technique FINDINGS: There is no evidence of intracranial hemorrhage or extra-axial fluid collection. There is no mass effect, or edema. No CT evidence of acute territorial infarct. Ventricles, sulci, and cisterns are normal in size and configuration for patient age. No hydrocephalus. No midline shift. Negative hyperdense MCA sign. Negative insular ribbon sign. Patchy periventricular and deep white matter hypoattenuation is consistent with mild to moderate small vessel ischemic changes. 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 Normal pituitary. Globes and orbital contents image normally. There are bilateral lens replacements. No extracranial soft tissue abnormalities. The paranasal sinuses, mastoid air cells, and tympanic cavities are normally aerated. No suspicious bony abnormalities. There is biparietal thinning. There are no acute fractures evident. There are bilateral TM joint degenerative changes. CT/CT head/brain wo IV con IMPRESSION: No acute intracranial abnormality. Electronically signed by: Felix Calloway MD 08/25/2024 04:21 PM EDT
--- NOTE | ~2024-08-22 | XR_ITS ---
EXAMINATION: XR CHEST 1 VIEW HISTORY: SOB COMPARISON: Comparison is made with the prior examination dated 03/07/2024. FINDINGS: A single AP portable view of the chest performed at 3:33 PM is submitted. A right-sided port is unchanged in position. Again seen is a soft tissue mass in the right chest wall. There are mild increased markings in both lungs. No focal airspace opacity is seen. There is no pleural effusion, pneumothorax, or pulmonary vascular congestion. The heart is normal in size. There is degenerative disc disease of the spine. XR/XR chest 1V IMPRESSION: Known right-sided chest wall mass. No acute abnormality is seen. Electronically signed by: Koby Mays MD 08/22/2024 03:45 PM EDT
--- NOTE | ~2024-08-22 | CT_ITS ---
CLINICAL HISTORY: cough, sob CT chest without contrast. Comparison: CT/SR - CT ANGIO CHEST PE PROTOCOL - 08/22/24 19:30 EDT Findings: No new airspace densities compared to 08/22/2024. Similar peribronchial thickening and bibasilar subsegmental atelectasis/scarring. Similar mild mucus/debris within the distal trachea and bronchi, more conspicuous on the right. Similar bilateral emphysema and right apical bulla. Other findings are also similar. IMPRESSION: No new airspace disease compared to 08/22/2024. This document has been electronically signed by: Kennedy Guallpa DO on 08/29/2024 11:30:53
--- NOTE | ~2024-08-22 | FL_ITS ---
EXAMINATION: Modified Barium Swallow CLINICAL INFORMATION: Dysphagia. COMPARISON: None TECHNIQUE: Modified barium swallow was performed under lateral fluoroscopy with patient in standing position. Barium mixed with solids and liquids of different consistencies was administered by the speech pathologist. Examination was recorded in the fluoroscopy suite. FINDINGS: On thin liquids, there was silent aspiration. On honey thick liquids, there was transient laryngeal penetration. On nectar thick liquids, there was transient laryngeal penetration. There was persistent pooling and retention of food material within the piriform sinuses. There is a ventrally hooked appearance of the epiglottis, nonspecific. FLUOROSCOPY TIME: 4 minutes, 19 seconds Number of Spot Images: N/A DOSE AREA PRODUCT: [id number] uGy-m2 (microgray-meter squared) FL/FL Modified Barium Swallow IMPRESSION: 1. Silent aspiration on thin liquids. See above. Refer to the speech therapy report for further clarification Electronically signed by: Felix Calloway MD 08/26/2024 02:01 PM EDT
--- NOTE | 2024-08-22 15:01 | ECG_ITS ---
Test Reason : SOB Blood Pressure : */* mmHG Vent. Rate : 127 BPM Atrial Rate : 127 BPM P-R Int : 138 ms QRS Dur : 122 ms QT Int : 328 ms P-R-T Axes : 46 9 37 degrees QTcB Int : 476 ms Sinus tachycardia with Premature atrial complexes Right bundle branch block Abnormal ECG When compared with ECG of 11-Mar-2024 15:38, Premature atrial complexes are now Present Right bundle branch block is now Present Referred By: Leatha Arriaga Electronically Signed By: Tre Grace
[2024-08-22] MEDS: levalbuterol HCL 1.25 MG/3 ML VIAL.NEB 3.75 MG INHALE (15:14)
[2024-08-22 15:29] LABS: Basophils Percent Auto 0.1 % (0-2); Hematocrit 45.1 % (42.0-52.0); Imm Gran Abs Auto 0.07 X10*3/uL (0.00-0.03); Imm Gran Pct Auto 0.6 % (0.0-0.4); Lymphocytes Absolute Auto 0.9 X10*3/uL (1.2-4.9); Lymphocytes Percent Auto 7.4 % (20-40); MANUAL DIFF FLAG NO; Mean Corpuscular HGB Conc 33.3 g/dl (31.0-36.0); Mean Corpuscular Hemoglobin 30.8 pg (27.0-33.0); Mean Corpuscular Volume 92.6 fL (80.0-98.0); Mean Platelet Volume 8.2 fL (9.4-12.4); Monocytes Absolute Auto 0.6 X10*3/uL (0.1-1.2); Neutrophils Percent Auto 86.9 % (45-73); Platelet Count 185 X10*3/uL (160-400); Red Blood Count 4.87 X10*6/uL (4.60-5.80); Red Cell Distribution Width 15.1 % (11.0-16.0); White Blood Count 11.5 X10*3/uL (4.8-10.8)
[2024-08-22 15:35] LABS: Prothrombin Time 11.3 SEC (10.9-12.4)
--- NOTE | 2024-08-22 15:35 | ED.SOB ---
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 No fevers, no chest pain. He is not on blood thinners. He is using his inhalers and nebs at home. He has no GIB symptoms. He has no swelling. No recent travel or sick contacts. He thinks it is allergies. MD elicited complaint: shortness of breath Pertinent past history: COPD Onset (ago): day(s) () Timing: constant Severity: severe Exacerbating factors: lying flat, exertion, movement and coughing Relieving factors: rest, bronchodilators and upright position Known history of: COPD Associated symptoms: cough and sputum production Treatment prior to arrival: bronchodilator Related Data Home Medications ?Medication ?Instructions ?Recorded ?Confirmed multivitamin (Daily Multi-Vitamin 1 tab PO DAILY 09/12/20 08/22/24 tablet) pravastatin 80 mg tablet 80 mg PO BEDTIME 09/02/22 08/22/24 fluticasone furoate 200 1 ea inhalation DAILY 08/22/24 08/22/24 mcg-vilanterol 25 mcg/dose inhalation powder (Breo Ellipta) umeclidinium 62.5 mcg/actuation 1 inh inhalation DAILY 08/22/24 08/22/24 blister powder for inhalation (Incruse Ellipta) Previous Rx's ?Medication ?Instructions ?Recorded albuterol sulfate 90 mcg/actuation 2 puff PO Q4H PRN for wheezing 08/01/24 aerosol inhaler #8.5 grams Allergies Allergy/AdvReac Type Severity Reaction Status Date / Time Penicillins [PENICILLINS] Allergy Severe Facial Verified 08/22/24 15:09 Swelling Sulfa (Sulfonamide Allergy Severe Facial Verified 08/22/24 15:09 Antibiotics) Swelling [Sulfa (Sulfonamides)] isoniazid Allergy Intermediate Hives Verified 08/22/24 15:09 Review of Systems Review of Systems: Constitutional : No Fever, No Chills ENT/Mouth : No sore throat, No Rhinorrhea, No Swallowing Difficulty Eyes: No Eye Pain, No Swelling, No Redness Cardiovascular : No Chest Pain, positive SOB, No Orthopnea, no Edema Respiratory : No Cough, pos Sputum, No Wheezing, positive dyspnea Gastrointestinal : No Nausea, No Vomiting, No Diarrhea, No abdominal Pain, No Hematochezia, No Melena Genitourinary : No Dysuria, No Urinary Frequency, No Hematuria Musculoskeletal : No joint pain, No Myalgias Skin : No Skin Lesions, No rash Neuro : No Weakness, No Numbness, No Dizziness, No Headache Psych : No Anxiety/Panic, No Depression All other systems reviewed and are negative [facility] Past Medical History Attestation statement: The following information was validated with the patient. Source: old records reviewed Medical History Former tobacco use Basal cell carcinoma Testicular cancer Elevated cholesterol DVT (deep venous thrombosis) Cancer COPD (chronic obstructive pulmonary disease) Surgical History History of orchiectomy Hx of spinal fusion History of bronchoscopy History of laryngoscopy H/O colonoscopy Hx of surgical procedure (05/05/24) History of arthroscopy of left knee History of total replacement of both hip joints Social History Social History Household Members: None Housing: House Are you a primary home health caregiver to a significant other at home: No Do you presently have visiting nurse or other home services: Yes (home O2) Alcohol intake: current Alcohol intake frequency: a few times a month Alcohol type: beer Patient Tobacco Use Status: Former Tobacco user Tobacco use type: Cigarette Years Smoked: 42 Advance Directives: No Advance Directives Information Provided: No Do you have a plan to hurt others: No Plan service: Yes Physical Exam Vital Signs: Vital Signs: Last Vital Signs Temp 97.8 F 08/22/24 21:10 Pulse 86 08/22/24 21:57 Resp 22 H 08/22/24 21:57 BP 117/75 08/22/24 21:10 Pulse Ox 99 08/22/24 21:10 O2 Del Method Nasal Cannula 08/22/24 21:10 O2 Flow Rate 4 08/22/24 21:10 Oxygen Flow Rate 3 08/22/24 15:05 BMI result Body Mass Index 27.3 Appearance: Alert. Oriented X3. Mild acute distress. Eyes: Pupils equal, round and reactive to light. ENT: Pharynx normal. Neck: Normal inspection. Neck supple. CVS: tachycardic heart rate and rhythm. Pulses normal. Respiratory: Mild respiratory distress tachypnea and retractions. Breath sounds diminished throughout Abdomen: Soft and nontender. Skin: Skin warm and dry. Normal skin color. Normal skin turgor. Extremities: No lower extremity edema. No calf ttp Neuro: Oriented X 3. No motor deficit. No sensory deficit. CN2-12 intact Course Course Course Narrative: 501pm patient is improved appearing at this time still tachycardic 1603 infection suspected Medications Administered Generic Name Dose Route Start Last Admin Trade Name Freq PRN Reason Stop Dose Admin Ceftriaxone Sodium 1 gm 08/23/24 00:00 08/23/24 00:29 Ceftriaxone Sodium 1 Gm Vial IVPUSH 1 gm Q24H GUS Administration Enoxaparin Sodium 40 mg 08/22/24 07:00 08/23/24 00:15 Enoxaparin Sodium 40 Mg/0.4 Ml Syringe SUBCUT Not Given Q24H GUS Metronidazole 500 mg in 100 mls @ 100 mls/hr 08/23/24 01:00 08/23/24 00:29 Flagyl IV 100 mls/hr Q8H GUS Administration Sodium Chloride 3 ml 08/23/24 00:00 08/23/24 00:29 0.9 % Sodium Chloride Flush 3 Ml Syringe IVFLUSH 3 ml QSHIFT GUS Administration Discontinued Medications Generic Name Dose Route Start Last Admin Trade Name Freq PRN Reason Stop Dose Admin Albuterol/Ipratropium 3 ml 08/22/24 21:56 08/22/24 21:57 Albuterol/Iprat 2.5/0.5mg 3 Ml Ampul.Neb INHALE 08/22/24 21:57 3 ml ONCE ONE Administration Aspirin 81 mg 08/22/24 21:17 08/22/24 21:26 Aspirin 81 Mg Tab.Chew PO 08/22/24 21:18 81 mg ONCE ONE Administration Azithromycin 500 mg/ Sodium 250 mls @ 125 mls/hr 08/22/24 16:03 08/22/24 18:44 Chloride IV 08/22/24 18:02 Infused ONCE ONE Infusion Lactated Ringer's 500 mls @ 999 mls/hr 08/22/24 17:15 08/22/24 18:30 Lr IV 08/22/24 17:45 Infused .Q31M GUS Infusion Iohexol 65 ml 08/22/24 19:36 08/22/24 19:36 Iohexol 350 Mg/Ml 100 Ml Infus..Btl IV 08/22/24 19:37 65 ml ONCE ONE Administration Levalbuterol HCl 3.75 mg 08/22/24 15:12 08/22/24 15:14 Levalbuterol Hcl 1.25 Mg/3 Ml Vial.Neb INHALE 08/22/24 15:13 3.75 mg ONCE ONE Administration Methylprednisolone Sodium Succinate 60 mg 08/22/24 17:00 08/22/24 17:46 Methylprednisolone Sod Succ 125 Mg Vial IVPUSH 08/22/24 17:01 60 mg ONCE ONE Administration Medical Decision Making Medical Decision Making [facility] Narrative: 79 yo male with PMH of COPD on 3L PRN home O2, R sided lung mass with mets to bone and L lung s/p 2 chemo treatments immunotherapy for squamous cell carcinoma now here with c/o dyspnea, cough, sputum production, increased O2 use at this time will obtain basic labs, ekg, CTA for PE/effusions/pneumonia, start on empiric nebs, IV steroids, IV azithromycin, VBG. Possible mass, effusion, VTE, COPD exacerbation, acs Differential Diagnosis Differential Diagnoses: The differential diagnosis associated with the presentation includes mass, effusion, VTE, COPD exacerbation, acs Admission/Observation Consideration of admission/observation: Escalation of care including admission/observation considered admit for further work up and management Consult Healthcare Provider Management of the patient was discussed with: Hospitalist (will admit) and Zipper Setter Chainstitch (likely demand no heparin - cardiology ) Lab Data [facility] Lab Attestation statement: I reviewed the patient's lab results. 08/22/24 15:23 08/22/24 15:23 Labs: Lab Results 08/22/24 08/22/24 08/22/24 Range/Units 15:23 16:40 16:45 WBC 11.5 H (4.8-10.8) X10*3/uL RBC 4.87 (4.60-5.80) X10*6/uL Hgb 15.0 (14.0-18.0) g/dl Hct 45.1 (42.0-52.0) % MCV 92.6 (80.0-98.0) fL MCH 30.8 (27.0-33.0) pg MCHC 33.3 (31.0-36.0) g/dl RDW 15.1 (11.0-16.0) % Plt Count 185 (160-400) X10*3/uL MPV 8.2 L (9.4-12.4) fL Immature Gran % (Auto) 0.6 H (0.0-0.4) % Neut % (Auto) 86.9 H (45-73) % Lymph % (Auto) 7.4 L (20-40) % Grayson % (Auto) 5.0 (2-11) % Eos % (Auto) 0.0 (0-4) % Baso % (Auto) 0.1 (0-2) % Lymph # (Auto) 0.9 L (1.2-4.9) X10*3/uL Grayson # (Auto) 0.6 (0.1-1.2) X10*3/uL Eos # (Auto) 0.0 (0.0-0.4) X10*3/uL Baso # (Auto) 0.0 (0.0-0.2) X10*3/uL Abs Immat Gran (auto) 0.07 H (0.00-0.03) X10*3/uL Absolute Neuts (auto) 10.0 H (2.0-8.3) x10*3/uL Absolute Nucleated RBC 0.000 (0.0-0.012) X10*3/uL Nucleated RBC % (auto) 0.0 (0.0-0.2) /100WBC PT 11.3 (10.9-12.4) SEC INR 1.0 (0.9-1.1) VBG pH 7.36 (7.32-7.43) VBG pCO2 54 mmHg VBG pO2 37 mmHg VBG HCO3 31 H (22-26) mmol/L VBG O2 Saturation 51.0 % VBG Base Excess 4.3 mmol/L Sodium 139 (135-145) mmol/L Potassium 4.5 (3.3-5.1) mmol/L Chloride 100 (96-108) mmol/L Carbon Dioxide 26 (22-29) mmol/L Anion Gap 18 (12-20) BUN 22 H (9-16) mg/dL Creatinine 0.63 (0.5-1.4) mg/dL Estim Creat Clear Calc 102.9 Estimated GFR > 60 Random Glucose 128 H (60-115) mg/dL Lactic Acid 2.7 H* (0.5-2.0) mmol/L Lactic Acid F/U @ 2Hr (0.5-2.0) mmol/L Lactic Acid F/U @ 4Hr (0.5-2.0) mmol/L Calcium 10.0 D (8.4-10.2) mg/dL Magnesium 1.8 (1.6-2.6) mg/dL Total Bilirubin 0.5 (0.0-1.0) mg/dL AST 303 H (5-37) U/L ALT 323 H (0-40) U/L Alkaline Phosphatase 122 H (39-117) U/L Troponin I High Sens 539.1 H* D 491.9 H* (<3.5-35.0) ng/L B-Natriuretic Peptide 17 (<100) pg/mL Total Protein 7.3 (6.5-8.0) g/dL Albumin 3.8 (3.5-5.0) g/dL Influenza Type A (PCR) NEGATIVE (Negative) Influenza Type B (PCR) NEGATIVE (Negative) RSV RNA Qual (PCR) NEGATIVE (Negative) SARS-CoV-2 RNA (RT-PCR) NEGATIVE (Negative) 08/22/24 08/22/24 Range/Units 18:51 21:15 WBC (4.8-10.8) X10*3/uL RBC (4.60-5.80) X10*6/uL Hgb (14.0-18.0) g/dl Hct (42.0-52.0) % MCV (80.0-98.0) fL MCH (27.0-33.0) pg MCHC (31.0-36.0) g/dl RDW (11.0-16.0) % Plt Count (160-400) X10*3/uL MPV (9.4-12.4) fL Immature Gran % (Auto) (0.0-0.4) % Neut % (Auto) (45-73) % Lymph % (Auto) (20-40) % Grayson % (Auto) (2-11) % Eos % (Auto) (0-4) % Baso % (Auto) (0-2) % Lymph # (Auto) (1.2-4.9) X10*3/uL Grayson # (Auto) (0.1-1.2) X10*3/uL Eos # (Auto) (0.0-0.4) X10*3/uL Baso # (Auto) (0.0-0.2) X10*3/uL Abs Immat Gran (auto) (0.00-0.03) X10*3/uL Absolute Neuts (auto) (2.0-8.3) x10*3/uL Absolute Nucleated RBC (0.0-0.012) X10*3/uL Nucleated RBC % (auto) (0.0-0.2) /100WBC PT (10.9-12.4) SEC INR (0.9-1.1) VBG pH (7.32-7.43) VBG pCO2 mmHg VBG pO2 mmHg VBG HCO3 (22-26) mmol/L VBG O2 Saturation % VBG Base Excess mmol/L Sodium (135-145) mmol/L Potassium (3.3-5.1) mmol/L Chloride (96-108) mmol/L Carbon Dioxide (22-29) mmol/L Anion Gap (12-20) BUN (9-16) mg/dL Creatinine (0.5-1.4) mg/dL Estim Creat Clear Calc Estimated GFR Random Glucose (60-115) mg/dL Lactic Acid (0.5-2.0) mmol/L Lactic Acid F/U @ 2Hr 2.7 H* (0.5-2.0) mmol/L Lactic Acid F/U @ 4Hr 2.1 H* (0.5-2.0) mmol/L Calcium (8.4-10.2) mg/dL Magnesium (1.6-2.6) mg/dL Total Bilirubin (0.0-1.0) mg/dL AST (5-37) U/L ALT (0-40) U/L Alkaline Phosphatase (39-117) U/L Troponin I High Sens (<3.5-35.0) ng/L B-Natriuretic Peptide (<100) pg/mL Total Protein (6.5-8.0) g/dL Albumin (3.5-5.0) g/dL Influenza Type A (PCR) (Negative) Influenza Type B (PCR) (Negative) RSV RNA Qual (PCR) (Negative) SARS-CoV-2 RNA (RT-PCR) (Negative) Independent Interpretation I performed an independent interpretation of an: EKG, Plain X-Ray (no pneumonia or CHF) and CT Scan (no PE) Interpretation: Rate: 127 Rhythm: sinus tach [place]: normal Normal P waves. Normal ODIN. RBBB ST T wave : no GALLO, nonspecific ST T wave changes qTC: 476 prior studies: no STEMi The study has been interpreted contemporaneously by me. EKG #2 Rate: 123 Rhythm: sinus tach [place]: normal Normal P waves. Normal ODIN. RBBB ST T wave : inverted t waves V1 and V2, no GALLO qTC: 483 prior studies: RBBB today is new The study has been interpreted contemporaneously by me. . Radiology Impression Discussion of test interpretation with radiology: I have reviewed the radiologist's reading. Independent Historian Clinical information obtained from an independent historian. History obtained from or confirmed by: EMS External Record Review External record reviewed: Inpatient record and Outpatient record Critical Care Time Critical Care Time Critical Care Time: Yes Total Critical Care Time: 60 Attestation: Time is exclusive of separately billable procedures. Time includes: direct patient care, patient reassessment, coordination of patient care, interpretation of data (laboratory data, pulse oximetry, arterial blood gases and chest xrays), review of patient's medical records, medical consultation and documentation of patient care. Procedures excluded from critical care time: electrocardiography. Discharge Plan Discharge Clinical Impression: Acute exacerbation of chronic obstructive airways disease, Tachycardia, Acidosis, lactic, Elevated troponin Patient Disposition: Admitted As Inpatient
--- OUTSIDE RECORDS SUMMARY | 2024-08-22 15:41 | XMS_ITS ---
Author Organization Koby Peña III, MD Address [address] [place] [address] Care Team Providers Care Flat Bed Operator Name Role Phone Koby Peña Primary Care Provider [phone] REASON FOR VISIT Message Social History Sex Assigned At : Social History Observation Description Sex Assigned At Male Encounters Encounter Location Date Provider Diagnosis Koby Peña III, MD [address] [place] [address] [place] [address] 05/18/2024 Koby Peña Plan Of Treatment Next Appt Details Provider Name:Koby Peña, 12/02/2024 10:00:00 AM, [address] [place] [address] [address] [place], [place], [address], Progress Notes * Jaren CANELA EDOB:[birth year] (79 yo M)Acc No.[id number]:05/18/2024 Patient:?Jaren CANELA :1945???Age:79 Y???Sex:Male Address:[place] [address] * true * Date:? Generated for Printi ng/Faxing/eTransmitting on:?08/22/2024 03:41 PM EDT
--- OUTSIDE RECORDS SUMMARY | 2024-08-22 15:41 | XMS_ITS | Continuity of Care Document ---
Author Organization [facility] Address [address] [place] [address]- Care Team Providers Care Cryolite Recovery Operator Name Role Phone Casey PEREZ, Koby Castañeda Primary Care Physician Encounter [facility] Date(s): 07/19/24 - 08/18/24 [facility] [address] [place] [phone] Encounter Type: Triage Allergies, Adverse Reactions, Alerts Substance Criticality Severity Reaction Reaction Severity Status isoniazid hives Active penicillins hives Active sulfADIAZINE Active Medications acetaminophen 325 mg oral tablet 650 mg, By Mouth, Every 6 hours, Refills 0, Maintenance, 08/24/17 8:02:47 AM EDT Start Date: 08/24/17 Status: Ordered Repeat number: 1 albuterol 90 mcg/inh inhalation powder 1 puffs, Inhalation, Every 6 hours, PRN as needed, # 1 each, 0 Refills, Maintenance, 10/22/16 7:06:19 AM EDT, Powder Start Date: 10/22/16 Status: Ordered Quantity: 1.0 Unit: each Repeat number: 1 Ascorbic Acid Tablet 500 mg, By Mouth, Daily, Refills 0, Maintenance, 08/24/17 8:02:54 AM EDT Start Date: 08/24/17 Status: Ordered Repeat number: 1 bisacodyl 10 mg rectal suppository 1 supp = 10 mg, Rectally, Daily, PRN Constipation, Start POD #2; until first postop bowel movement,0 Refills, Maintenance, 08/24/17 8:02:57 AM EDT, Suppository Start Date: 08/24/17 Status: Ordered Repeat number: 1 docusate sodium 100 mg oral capsule 100 mg, 1, capsule, By Mouth, 2 times a day, Refills 0, Maintenance, 08/24/17 8:02:59 AM EDT Start Date: 08/24/17 Status: Ordered Repeat number: 1 Duoneb Inhalation Solution 1, vials, Neb, Every 4 hours, PRN, Refills 0, Maintenance, 08/24/17 8:02:51 AM EDT, Inhalation Solution Start Date: 08/24/17 Status: Ordered Repeat number: 1 Enoxaparin 0.3 mL = 30 mg, Subcutaneous Injection, 2 times a day, 0 Refills, Maintenance, 08/24/17 8:03:00 AM EDT, Injection Start Date: 08/24/17 Status: Ordered Repeat number: 1 ferrous sulfate 325 mg oral enteric coated tablet 325 mg, 1, tablet, By Mouth, 3 times a day, # 30 tablet, Refills 0, Maintenance, 10/22/16 7:05:54 AMEDT Start Date: 10/22/16 Status: Ordered Quantity: 30.0 Unit: tablet Repeat number: 1 gabapentin 100 mg oral capsule 100 mg, By Mouth, 3 times a day, Refills 0, Maintenance, 08/24/17 8:03:17 AM EDT Start Date: 08/24/17 Status: Ordered Repeat number: 1 gabapentin 100 mg oral capsule 100 mg, By Mouth, 3 times a day, # 90 capsule, Refills 0, Tot. Refills 0, Maintenance, 08/24/17 8:21:32 AM EDT, Print Requisition Start Date: 08/24/17 Stop Date: 09/23/17 Status: Ordered Quantity: 90.0 Unit: capsule Repeat number: 1 HYDROmorphone 2 mg oral tablet = 2 mg, By Mouth, Every 4 hours, PRN Pain , Mild, 0 Refills, Maintenance, 08/24/17 8:03:21 AM EDT, Tablet Start Date: 08/24/17 Status: Ordered Repeat number: 1 HYDROmorphone 4 mg oral tablet = 4 mg, By Mouth, Every 4 hours, PRN Pain , Moderate, 0 Refills, Maintenance, 08/24/17 8:03:19 AM EDT, Tablet Start Date: 08/24/17 Status: Ordered Repeat number: 1 Incruse Ellipta 62.5 mcg/inh inhalation powder 1 each, Inhalation, Every 24 hours, doses should be taken at least 24 hours apart, # 30 each, 0 Refills, Maintenance, 10/22/16 7:05:23 AM EDT, Powder Start Date: 10/22/16 Status: Ordered Quantity: 30.0 Unit: each Repeat number: 1 lidocaine-prilocaine 2.5%-2.5% topical cream See Instructions, Apply dime sized amount over port and cover with plastic, 1 hour prior to port use., # 30 Gm, 2 Refills, Maintenance, 07/01/24 4:21:00 PM EDT, [facility] #[id number], Partial fill upon patient request if the prescription is for a schedule II opioid drug., Apply dime sized amount over port and cover with plastic, 1 hour prior to port use., 180, cm, 06/15/24 15:05:00 EDT, Height, 95.3, kg, 06/15/24 15:05:00 EDT, Dry Weight Start Date: 07/01/24 Status: Ordered Quantity: 30.0 Unit: g Repeat number: 3 Maalox Plus Liquid 30 mL, By Mouth, Every 4 hours, PRN Nausea & Vomiting, 0 Refills, Maintenance, 08/24/17 8:02:49 AM EDT, Suspension Start Date: 08/24/17 Status: Ordered Repeat number: 1 MiraLax Powder 1 pack/packet = 17 Gm, By Mouth, Daily, 0 Refills, Maintenance, 08/24/17 8:03:29 AM EDT, Powder Start Date: 08/24/17 Status: Ordered Repeat number: 1 MOM Liquid 30 mL, By Mouth, Daily, PRN Constipation, 0 Refills, Maintenance, 08/24/17 8:03:23 AM EDT, Suspension Start Date: 08/24/17 Status: Ordered Repeat number: 1 ondansetron 4 mg oral tablet, disintegrating 1 tablet = 4 mg, By Mouth, Every 8 hours, PRN as needed for nausea/vomiting, # 30 tablet, 0 Refills, Maintenance, 07/01/24 4:21:00 PM EDT, DIS Tablet, [facility] #[id number], Partial fill upon patient request if the prescription is for a schedule II opioid drug., 180, cm, 06/15/24 15:05:00 EDT,Height, 95.3, kg, 06/15/24 15:05:00 EDT, Dry Weight Start Date: 07/01/24 Status: Ordered Quantity: 30.0 Unit: tablet Repeat number: 1 pantoprazole 40 mg oral delayed release tablet = 40 mg, By Mouth, Daily, 0 Refills, Maintenance, 08/24/17 8:03:27 AM EDT, EC Tablet Start Date: 08/24/17 Status: Ordered Repeat number: 1 pravastatin 40 mg oral tablet 1 tablet = 40 mg, By Mouth, Daily, 0 Refills, Maintenance, 07/07/16 8:32:37 AM EDT Start Date: 07/07/16 Status: Ordered Repeat number: 1 predniSONE 5 mg oral tablet 1 tablet = 5 mg, By Mouth, Daily, with food or milk, # 30 tablet, 1 Refills, Maintenance, 07/04/24 5:46:00 PM EDT, Tablet, [facility] #[id number], Partial fill upon patient request if the prescription is for a schedule II opioid drug., 180, cm, 06/15/24 15:05:00 EDT, Height, 95.3, kg, 06/15/24 1 5:05:00 EDT, Dry Weight Start Date: 07/04/24 Status: Ordered Quantity: 30.0 Unit: tablet Repeat number: 2 prochlorperazine 5 mg oral tablet 1 tablet = 5 mg, By Mouth, Every 6 hours, PRN Nausea & Vomiting, # 30 tablet, 0 Refills, Maintenance, 07/11/24 3:15:00 PM EDT, Tablet, [facility] #[id number], Partial fill upon patient requestif the prescription is for a schedule II opioid drug., 180, cm, 07/05/24 9:15:00 EDT, Height, 95.3,kg, 06/15/24 15:05:00 EDT, Dry Weight Start Date: 07/11/24 Status: Ordered Quantity: 30.0 Unit: tablet Repeat number: 1 senna 187 mg oral tablet 1 tablet = 8.6 mg, By Mouth, Daily at bedtime, 0 Refills, Maintenance, 08/24/17 8:03:31 AM EDT, Tablet Start Date: 08/24/17 Status: Ordered Repeat number: 1 warfarin 10 mg oral tablet = 10 mg, By Mouth, Once, 0 Refills, Maintenance, 08/24/17 8:03:33 AM EDT, Tablet Start Date: 08/24/17 Status: Ordered Repeat number: 1 Social History Social History Type Response Smoking Status Former smoker, quit more than 30 days ago entered on: 06/01/24 Sex Sex Representation Male (finding) Patient Care team information Care Team Personnel Name: Funmilayo Arnold RN Position: [facility] SN RN Member Role: Primary Care Nurse Name: Tiny Guzman RN Position: [facility] RN Member Role: Primary Care Nurse Name: Koby Peña MD Position: [facility] Physician - Oncology Member Role: PCP Address: [address] [place] [address] [address] Koby Peña III, [place], [place] [address] Tele[facility]: Name: Arsh Eastman RN Position: [facility] RN Member Role: Primary Care Nurse Name: Paradise Arizmendi RN Position: [facility] MAK Office Staff Member Role: Primary Care Nurse Name: Lizbeth Antonio RN Position: [facility] Onco RN Member Role: Primary Care Nurse Name: Hoa Carlos RN Position: [facility] Onco RN Member Role: Primary Care Nurse Name: Huan Fonseca RN Position: [facility] Outreach Member Role: Primary Care Nurse Name: Itzel Nugent RN Position: [facility] Onco RN Member Role: Primary Care Nurse Name: Polly Segura RN Position: [facility] Onco RN Member Role: Primary Care Nurse Name: Sammy Duffy RN Position: [facility] SN RN Member Role: Primary Care Nurse Care Team Related Persons Name: RICHARD OTERO Name: ALANNA CANELA Insurance Providers Guarantor name: GHANSHYAM CANELA Health Plan Information #: 1 Payer: MEDICARE PART B OUTPT Member Number: NA Policy Number: NA Group Number: NA Health Plan Information #: 2 Payer: MEDEX Member Number: NA Policy Number: NA Group Number: NA
--- OUTSIDE RECORDS SUMMARY | 2024-08-22 15:41 | XMS_ITS | Patient Health Record ---
Author Organization [facility] Address [address] [place] [address] Care Team Providers Care Railroad Passenger Agent Name Role Phone Koby Peña MD Primary Care Provider UnavailMelquiades Vargas Unavailable [phone] Allergies Allergen (clinical drug ingredient) Drug/Non Drug [...] Coverage End Date Medicare [facility] [address] [place] [address] [id number] Jaren pU Self - patient is the insured [employer] [address] [place] [address] [id number] Jaren Up Self - patient is the insured Medical (General) History Medical History History ICD Code Broken bones Heart disease Lung disease Measles Joint implants/screws Surgical History Surgery Date(Month/Year) back fusion 2016 left hip replacement 2017 right hip 2018 testicular tumor removal 1971 hernia? 1960
--- OUTSIDE RECORDS SUMMARY | 2024-08-22 15:42 | XMS_ITS ---
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 Role Phone Koby Peña Primary Care Provider Allergies Allergen (clinical drug ingredient) Drug/Non Drug Allergy documented on EMR Reaction Allergy Type Onset Date Status Penicillin Unknown Drug Allergy Active Substance with sulfonamide structure and antibacterial mechanism of action (substance) Sulfa Antibiotics Unknown Drug Allergy Active REASON FOR VISIT Stage IV squamous cell carcinoma of the lung, COPD, Emphysema, Arthritis both knees, Coronary artery disease Medications Medication SIG (Take, Route, Frequency, Duration) Notes Start Date End Date Status Albuterol Sulfate HFA 108 (90 Base) MCG/ACT [...] Additional Findings: Tobacco Non-User Ex-cigaret te smoker Vital Signs Temperature 97.3 degrees Fahrenheit 08/17/19 25 Blood pressure systolic 138 mm Hg 08/17/19 25 Blood pressure diastolic 78 mm Hg 025 Heart Rate 100 /min 08/16/2024 Height 72 in 08/16/2024 Weight 196 lbs 08/16/2024 BMI 26.58 kg/m2 08/16/2024 Oximetry 96 % 08/16/2024 Encounters Encounter Location Date Provider Diagnosis Koby Peña III, MD [address] [place] [address] [place] [address] 08/16/2024 Koby Peña Mixed hyperlipidemia E78.2 ; Pulmonary neoplasm D49.1 ; COPD (chronic obstructive pulmonary disease) J44.9 ; Pulmonary emphysema, unspecified emphysema type J43.9 ; ASHD (arteriosclerotic heart disease) I25.10 ; 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 08/16/2024 Pulmonary neoplasm (ICD-10 - D49.1) He is receiving chemotherapy the [facility]. He reports that he was totally has had a major response. He is feeling much better. He looks much stronger. 08/16/2024 COPD (chronic obstructive pulmonary disease) (ICD-10 - J44.9) He had a recent hospitalization for respiratory failure. He is doing well now with prednisone. 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 He is comfortable at rest or with prolonged exertion becomes dyspneic and tachycardic. He is no longer smoking. 08/16/2024 Pulmonary emphysema, unspecified emphysema type (ICD-10 - J43.9) His lung disease is stable. He is no longer smoking. He is short of breath with exertion but not during the course of daily life. 08/16/2024 ASHD (arteriosclerotic heart disease) (ICD-10 - I25.10) He denies any recent angina palpitations or syncope. Current therapy was continued. 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 08/16/2024 Primary osteoarthritis of both knees (ICD-10 - M17.0) He has had knee surgery. He will continue on current therapy and be monitored carefully. 08/16/2024 History of torn meniscus of left knee (ICD-10 - Z87.828) 08/16/2024 Former smoker (ICD-10 - Z87.891) He seems motivated not to smoke. We formulated a plan to prevent relapse in time to stress and illness. 08/16/2024 Overweight (ICD-10 - E66.3) He has gained 2 pounds. His body mass index is 29. We made a plan to lose weight at a rate of one half of a pound per week 08/16/2024 Compression fracture of L1 vertebra, initial encounter (ICD-10 - S32.010A) He is asymptomatic. This was an incidental finding on recent CT scan. 08/16/2024 Rib lesion (ICD-10 - M89.9) The pain from the rib destruction is much improved. He notices it only occasionally. He does not need to take strong pain medication for this. Plan Of Treatment Medication Medication Name Sig Start Date Stop Date Notes Albuterol Sulfate HFA 108 (9 0 Base) MCG/ACT Inhalation Pravastatin Sodium 80 MG 1 tablet Orally Once a day 2023 Incruse Ellipta 62.5 MCG/INH INHALE 1 PU FF BY MOUTH DAILY Inhalation Breo Ellipta 200-25 MCG/INH Inhalation predniSONE 10 MG 1 tablet Orally Once a day 03/17/2024 Next Appt Details Follow Up: As Scheduled, Ciara son: Annual Exam Provider Name:Koby Peña, 12/02/2024 10:00:00 AM, [address] [place] [address] , [place] [address], [place], [address], Progress Notes * Jaren CANELA EDOB:[birth year] (79 yo M)Acc No.[id number]:08/16/2024 Progress Notes Patient:?Jaren CANELA Provider:?Koby Peña MD :1945???Age:79 Y???Sex:Male Rey e:08/16/2024 Address:[address] [place] [address] [place] [facility] Subjective: * Chief Complaints: * ???Stage IV squamous cell ca rcinoma of the lungCOPDEmphysemaArthritis both kneesCoronary artery disease * HPI: ???COVID-19 Screening:? He returns for ongoing medical management for a scheduled visit.? His medical oncologist says that after 2 chemotherapy treatments he has had a significant response.? He is now receiving immunotherapy.? He has developed watering of both eyes due to the pollen season.? He says he is feeling a lot better.? He is using his inhalers now.? He is only short of breath with exertion.? He has no new complaints.? The rib pain has resolved.He has only minor knee pain. ?Questions?Have you had any new onset fever, chills, cough, congestion, sore throat, shortness of breath, muscle aches??No * ROS:?General/Constitutional:?pain?Both knees and right ribs.?Chills?denies.?Fatigue?admits.?Fever?denies.?ENT:?Decreased hearing?mild.?Respiratory:?Cough?denies.?Cardiovascular:?Chest pain with exertion?denies.?Dyspnea on exertion?denies.?Shortness of breath?with exertion.?Gastrointestinal:?Constipation?occasional.?Decreased appetite?denies.?Diarrhea?denies.?Heartburn?denies.?Nausea?denies.?Rectal bleeding?denies.?Vomiting?denies.?Hematology:?bruising?denies.?petechiae?denies.?Swollen glands?none have been noted.?Genitourinary:?Frequent urination?denies.?Musculoskeletal:?Muscle aches?denies.?Painful joints?denies.?Sciatica?denies.?Weakness?denies.?Skin:?Itching?denies.?Rash?denies.?Skin lesion(s)?denies.?Neurologic:?Difficulty speaking?denies.?Dizziness?denies.?Headache?denies.?Low back pain?denies.?Psychiatric:?Depressed mood?denies.? * Medical History:? * Surgical History:?fracture r ight arm age 18 1964bilateral knee replacements Bronchoscopy for interstitial pneumonia, [facility] 07/2007Direct laryngoscopy with biopsy of paralyzed left vocal cord, Dr. De León 03/2009Incomplete colonoscopy, [facility], Dr. Mo, severe sigmoid diverticulosis 01/2010Partial left medial meniscectomy and debridement, Dr. Armand Milner, [facility] 03/2010lumbar spine fusion, [facility] 2016Upper endoscopy and colonoscopy, Dr. Montague, [facility], for iron deficiency anemia 04/2018No history * [...] Tobacco Non-User?Ex-cigarette smoker ???He was born in [facility]. 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 He has had no toxic exposures. He has no pentecostal objections to blood transfusion. He lives in [facility] with his sister. Smoking - Quit [...] Antibiotics: Allergyno[Allergies Verified] Objective: * Vitals:?Ht: 72, Wt:196, BMI: 26.58, BP:138/78, HR:100, Temp:97.3, Oxygen sat %:96, Wt-k.9. * Examination: ???General Examination: ?GENERAL APPEARANCE:?pleasant, well [...] exam intact.?PSYCH:?alert, oriented.? Assessment: * Assessment: 1.?Pulmonary neoplasm - D49. 1 (Primary)???Notes :He is receiving chemotherapy the [facility].? He reports that he was totally has had a major response.? He is feeling much better.? He looks much stronger.???2.?Mixed hyperlipidemia - E78.2???Notes :His lipids are currently stable and no change in his regimen as necessary.???3.?COPD (chronic obstructive pulmonary disease) - J44.9???Notes :He had a recent hospitalization for respiratory failure. He is doing well now with prednisone. 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 He is comfortable at rest or with prolonged exertion becomes dyspneic and tachycardic. He is no longer smoking.???4.?Pulmonary emphysema, unspecified emphysema type - J43.9???Notes :His lung disease is stable. He is no longer smoking. He is short of breath with exertion but not during the course of daily life.???5.?ASHD (arteriosclerotic heart disease) - I25.10???Notes :He denies any recent angina palpitations or syncope. 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 He will continue on current therapy and be monitored carefully.???8.?History of torn meniscus of left knee - Z87.828???9.?Former smoker - Z87.891???Notes :He seems motivated not to smoke. We formulated a plan to prevent relapse in time to stress and illness.???10.?Overweight - E66.3???Notes :He has gained 2 pounds. His body mass index is 29. We made a plan to lose weight at a rate of one half of a pound per week???11.?Compression fracture of L1 vertebra, initial encounter - S32.010A???Notes :He is asymptomatic. This was an incidental finding on recent CT scan.???12.?Rib lesion - M89.9???Notes :The pain from the rib destruction is much improved.? He notices it only occasionally.? He does not need to take strong pain medication for this.??? Plan: * Treatment: * Procedure Codes:?42979 MEASU RE BLOOD OXYGEN LEVEL * Preventive Medicine:? ??Counseling:?Care goal follow-up plan:?Counseling for abnormal BMI given?Yes ?Above Normal BMI Follow-up?Dietary management education, guidance, and counseling ?Smoking/Tobacco Use?Patient counseled on the dangers of tobacco use and urged to quit.?08/16/2024 ??COPD Care Plan:?Patient Lifestyle Goals?Relieve symptoms and improve quality of life, Reduce number of ED and hospitalizations, Be able to be more active with friends and family.?Treatment Goals?Exercise to help whole body, including lungs, Eat a nutritious diet and increase water consumption to 6-8 glasses a day.?Barriers?no barriers.?Self-Managment Goals?Get an air purifier for the rooms you are in the most, Eat a healthy diet.? * Follow Up:?As Scheduled (Ciara son: Annual Exam) * Images: * Sign off status: Completed true * Provider:?Koby Peña MD Date:?08/04 Generated for Elisabeth andersen/Dina/eTransmitting on:?08/22/2024 03:41 PM EDT History and Physical Notes * HPI (History [...]
--- OUTSIDE RECORDS SUMMARY | 2024-08-22 15:42 | XMS_ITS ---
Author Organization Koby Peña III, MD Address [address] [place] [address] Care Team Providers Care Professor Of Languages Name Role Phone Koby Peña Primary Care Provider Allergies Allergen (clinical drug ingredient) Drug/Non Drug Allergy documented on EMR Reaction Allergy Type Onset Date Status Penicillin Unknown Drug Allergy Active Substance with sulfonamide structure and antibacterial mechanism of action (substance) Sulfa Antibiotics Unknown Drug Allergy Active REASON FOR VISIT Stage IV non-small cell carcinoma of the lung, rib pain resolved, COPD, Emphysema, A SHD, Arthritisof both knees, Fracture of L1, Benign prostatic hypertrophy Medications Medication SIG (Take, Route, Frequency, Duration) Notes Start Date End Date Status predniSONE 10 MG 1 tablet Orally Once a day 03/17/2024 Active Breo Ellipta 200-25 MCG/INH Inhalation Active Incruse [...] Tobacco Non-User Ex-cigaret te smoker Vital Signs Blood pressure systolic 140 mm Hg 06/15/19 25 Blood pressure diastolic 68 mm Hg 025 Heart Rate 82 /min 06/14/2024 Height 72 in 06/14/2024 Weight 210 lbs 06/14/2024 BMI 28.48 kg/m2 06/14/2024 Encounters Encounter Location Date Provider Diagnosis Koby Peña III, MD [address] [place] [address] [place] [address] 06/14/2024 Koby Peña Mixed hyperlipidemia E78.2 ; Pulmonary neoplasm D49.1 ; Rib lesion M89.9 ; Compression fracture of L1 vertebra, initial encounter S32.010A ; Overweight E66.3 ; Positive PPD R76.11 ; History of torn meniscus of left knee Z87.828 ; Former smoker Z87.891 ; Primary osteoarthritis of both knees M17.0 ; COPD (chronic obstructive pulmonary disease) J44.9 and Pulmonary emphysema, unspecified emphysema type J43.9 Assessments Encounter Date Diagnosis (ICD Code) Assessment Notes Treat ment Notes Treatment Clinical Notes 06/14/2024 Mixed hyperlipidemia (ICD-10 - E78.2) His lipids are currently stable and no change in his regimen as necessary. 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 His PSA is normal. 06/14/2024 Compression fracture of L1 vertebra, initial encounter (ICD-10 - S32.010A) He is asymptomatic. This was an incidental finding on recent CT scan. 06/14/2024 Overweight (ICD-10 - E66.3) He has gained 2 pounds. His body mass index is 29. We made a plan to lose weight at a rate of one half of a pound per week 06/14/2024 Positive PPD (ICD-10 - R76.11) History obtained from old records shows he was PPD +1973. It is not clear if he was ever treated. He has never had clinical TB. Some years ago he developed an interstitial infiltrate in his lung and was hospitalized. 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 He has recovered from that. 06/14/2024 History of torn meniscus of left knee (ICD-10 - Z87.828) 06/14/2024 Former smoker (ICD-10 - Z87.891) He seems motivated not to smoke. We formulated a plan to prevent relapse in time to stress and illness. 06/14/2024 Primary osteoarthritis of both knees (ICD-10 - M17.0) He has had knee surgery. He will continue on current therapy and be monitored carefully. 06/14/2024 COPD (chronic obstructive pulmonary disease) (ICD-10 - J44.9) He had a recent hospitalization for respiratory failure. He is doing well now with prednisone. This was continued until he sees his software development specialist. He is comfortable at rest or with prolonged exertion becomes dyspneic and tachycardic. He is no longer smoking. 06/14/2024 Pulmonary emphysema, unspecified emphysema type (ICD-10 - J43.9) His lung disease is stable. He is no longer smoking. He is short of breath with exertion but not during the course of daily life. Plan Of Treatment Medication Medication Name Sig Start Date Stop Date Notes predniSONE 10 MG 1 tablet Orally Once a day 03/17/2024 Breo Ellipta 200-25 MCG/INH Inhalation Incruse Ellipta 62.5 MCG/INH INHALE 1 PU FF BY MOUTH DAILY Inhalation Pravastatin Sodium 80 MG 1 tablet Orally Once a day 2023 Albuterol Sulfate HFA 108 (9 0 Base) MCG/ACT Inhalation Next Appt Details Follow Up: 2 Months, Reason: Office visit Provider Name:Koby Peña, 12/02/2024 10:00:00 AM, [address] [place] [address] [address] [facility] [place], [place], [address], Progress Notes * Jaren CANELA EDOB:[birth year] (79 yo M)Acc No.[id number]:06/14/2024 Progress Notes Patient:?Jaren CANELA Provider:?Koby Peña MD :1945???Age:79 Y???Sex:Male Rey e:06/14/2024 Address:[address] [facility], [place] Subjective: * Chief Complaints: * ???Stage IV non-small cell c arcinoma of the lungRib pain resolvedCOPDEmphysemaA SHDArthritis of both kneesFracture of [id number] prostatic hypertrophy * HPI: ???COVID-19 Screening:?Questions?Have you had any new onset fever, chills, cough, congestion, sore throat, shortness of breath, muscle aches??No ? He returns for ongoing medical management.? He has been to medical oncology at [facility] where he is under the care of Dr. Cole.? He is about to begin immunotherapy for advanced stage IV non-small cell carcinoma lung.? He says his breathing feels good although he has good days and bad days.? He has an oxygen concentrator at home which he uses occasionally.? José Miguel has recently been staged with a CT scan and MRI [facility].? The pain in his rib metastasis has resolved.? His appetite is fair.? He will be followed at intervals during his treatment.No change in his regimen was necessary today. * ROS:?General/Constitutional:?pain?only normal aches and pains.?Chills?denies.?Fatigue?admits.?Fever?denies.?ENT:?Decreased hearing?mild.?Respiratory:?Cough?denies.?Cardiovascular:?Chest pain with exertion?denies.?Dyspnea on exertion?denies.?Shortness of breath?with exertion.?Gastrointestinal:?Constipation?occasional.?Decreased appetite?denies.?Diarrhea?denies.?Heartburn?denies.?Nausea?denies.?Rectal bleeding?denies.?Vomiting?denies.?Hematology:?bruising?denies.?petechiae?denies.?Swollen glands?none have been noted.?Genitourinary:?Frequent urination?twice a night.?Musculoskeletal:?Muscle aches?denies.?Painful joints?denies.?Sciatica?denies.?Weakness?denies.?Skin:?Itching?denies.?Rash?denies.?Skin lesion(s)?denies.?Neurologic:?Difficulty speaking?denies.?Dizziness?denies.?Headache?denies.?Low back pain?denies.?Psychiatric:?Depressed mood?denies.? * Medical History:? * Surgical History:?fracture r ight arm age 18 1964bilateral knee replacements Bronchoscopy for interstitial pneumonia, [facility] 07/2007Direct laryngoscopy with biopsy of paralyzed left vocal cord, Dr. De León 03/2009Incomplete colonoscopy, [facility], Dr. Mo, severe sigmoid diverticulosis 01/2010Partial left medial meniscectomy and debridement, Dr. Armand Milner, [facility] 03/2010lumbar spine fusion, [facility] 2016Upper endoscopy and colonoscopy, Dr. Montague, [facility], for iron deficiency anemia 04/2018No history * [...] Tobacco Non-User?Ex-cigarette smoker ???He was born in [facility]. 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 He has had no toxic exposures. He has no bahai objections to blood transfusion. He lives in [facility] with his sister. Smoking - Quit in [...] Antibiotics: Allergyno[Allergies Verified] Objective: * Vitals:?Ht: 72, Wt:210, BMI: 28.48, BP:140/68, HR:82, Wt-k.25. * Examination: ???General Examination: ?GENERAL APPEARANCE:?pleasant, well nourished, well developed, in no acute distress, calm and relaxed, overweight, elderly man.?HEAD:?atraumatic, normocephalic.?EYES:?eomi, perrla, anicteric, conjugate.?EARS:?normal.?NOSE:?septum intact.?ORAL CAVITY:?normal, unremarkable.?NECK/THYROID:?no jugular venous distention, no carotid bruit, thyroid normal.?LYMPH NODES:?no enlarged lymph nodes,spleen normal.?SKIN:?no suspicious lesions, anicteric.?HEART:?no clicks, gallops, murmurs, or rubs, regular rhythm, S1, S2 normal, no s3, or vascular bruits.?LUNGS:?, diminished breath sounds throughout, no wheezes, rales, rhonchi, Diminished pain to pressure over right rib.?BREASTS:??no masses palpable bilaterally.?ABDOMEN:?bowel sounds normal, no ascites, no organomegaly, no mass, overweight.?RECTAL EXAM:?not examined.?MUSCULOSKELETAL:?extremities unremarkable, no clubbing, cyanosis or edema.?PERIPHERAL PULSES:?normal.?NEUROLOGIC:?alert and oriented, cranial nerves 2-12 grossly intact, deep tendon reflexes 2+ symmetrical, motor strength normal upper and lower extremities, sensory exam intact.?PSYCH:?alert, oriented.? Assessment: * Assessment: 1.?Pulmonary neoplasm - D49. 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 His PSA is normal.???4.?Compression fracture of L1 vertebra, initial encounter - S32.010A???Notes :He is asymptomatic. This was an incidental finding on recent CT scan.???5.?Overweight - E66.3???Notes :He has gained 2 pounds. His body mass index is 29. We made a plan to lose weight at a rate of one half of a pound per week???6.?Positive PPD - R76.11???Notes :History obtained from old [...] prevent relapse in time to stress and illness.???9.?Primary osteoarthritis of both knees - M17.0???Notes :He has had knee surgery. He will continue on current therapy and be monitored carefully.???10.?COPD (chronic obstructive pulmonary disease) - J44.9???Notes :He had a recent hospitalization for respiratory failure. He is doing well now with prednisone. This was continued until he sees his software development specialist. He is comfortable at rest or with prolonged exertion becomes dyspneic and tachycardic. He is no longer smoking.???11.?Pulmonary emphysema, unspecified emphysema type - J43.9???Notes :His lung disease is stable. He is no longer smoking. He is short of breath with exertion but not during the course of daily life.??? Plan: * Treatment: * Procedure Codes:? * Preventive Medicine:? ??Counseling:?Care goal follow-up plan:?Counseling for abnormal BMI given?Yes ?Above Normal BMI Follow-up?Dietary management education, guidance, and counseling, Dietary needs education ?Smoking/Tobacco Use?Patient counseled on the dangers of tobacco use and urged to quit.?06/14/2024 ??COPD Care Plan:?Patient Lifestyle Goals?Be able to be more active with friends and family, Reduce number of ED and hospitalizations, Relieve symptoms and improve quality of life.?Treatment Goals?Eat a nutritious diet and increase water consumption to 6-8 glasses a day, Exercise to help whole body, including lungs.?Barriers?no barriers.?Self-Managment Goals?Get an air purifier for the rooms you are in the most, Eat a healthy diet.? * Follow Up:?2 Months (Reason: Office visit) * Images: * Sign off status: Completed true * Provider:?Koby Peña MD Date:?06/04 Generated for Elisabeth andersen/Dina/eTransmitting on:?08/22/2024 03:41 PM [...] bruits LUNGS: , diminished breath sounds throughout, no wheezes, rales, rhonchi, Diminished pain to pressure over right rib ABDOMEN: bowel sounds normal, no ascites, no [...]
--- OUTSIDE RECORDS SUMMARY | 2024-08-22 15:42 | XMS_ITS | Patient Health Record ---
Author Organization Koby Peña III, MD Address [address] [place] [address] Care Team Providers Care Nuclear Medicine Specialist Name Role Phone Koby Peña Primary Care [...] ff Reviewed date:11/27/2023 03:44:00 PM Interpretation: Performing Lab:[facility], [address] [place] [address] Notes/Report: White Blood Count 8.0 4.8-10.8 X10*3/uL [...] NRBC Abs Auto 0.000 0.0-0.012 X10*3/uL Comprehensive [place]. Panel Fa st Reviewed date:11/27/2023 03:44:00 PM Interpretation: Performing Lab:[facility], [address] [place] [phone] Notes/Report: Sodium 144 135-145 mmol/L Potassium 4.3 3.3-5.1 mmol/L Chloride 107 96-108 mmol/L Carbon Dioxide 29 22-29 mmol/L Anion Gap 12 12-20 Blood Urea Nitrogen 16 9-16 mg/dL Creatinine 0.81 0.5-1.4 mg/dL Estimated Glomerular Filt Rate > 60 NOTE: For -Romanian individuals, multiply the result by 1.210. Chronic [...] Panel Reviewed date:11/27/2023 03:44:00 PM Interpretation: Performing Lab:[address] [address] Notes/Report: Triglycerides 159 <150 mg/dL Desirable Triglyceride: [...] Antigen Reviewed date:11/27/2023 03:44:00 PM Interpretation: Performing Lab:[address] [address] Notes/Report: Prostate Specific Antigen 1.46 <0.05-4.0 ng/mL PSA methodology: Davila Alinity i Chemiluminescent Microparticle Immunoassay (CMIA) Complete Blood Count Auto Di ff Reviewed date:03/14/2024 05:01:23 AM Interpretation: Performing Lab:[address] [address] Notes/Report: White Blood Count 12.4 4.8-10.8 X10*3/uL [...] gy Reviewed date:03/14/2024 05:01:23 AM Interpretation: Performing Lab:[address] [address] Notes/Report: Hold Lav - Possible Hematology SEE NOTE Specimen will be held untested for 8 hours. Call Hematology if testing is desired. Prothrombin Time INR Reviewed date:03/14/2024 05:01:23 AM Interpretation: Performing Lab:[facility], [address] [place] [phone] Notes/Report: Prothrombin Time 12.5 10.9-12.4 SEC INTERNATIONAL [...] Time Reviewed date:03/14/2024 05:01:23 AM Interpretation: Performing Lab:[address] [address] Notes/Report: Partial Thromboplastin Time 30.1 26.0-36.8 SEC For information regarding the monitoring of direct thrombin inhibitors, please refer to Pharmacy. Comprehensive Met. Panel Reviewed date:03/14/2024 05:01:23 AM Interpretation: Performing Lab:[address] [address] Notes/Report: Sodium 140 135-145 mmol/L Potassium 3.9 [...] Acid Reviewed date:03/14/2024 05:01:23 AM Interpretation: Performing Lab:[address] [address] Notes/Report: Lactic Acid 4.2 0.5-2.0 mmol/L Critical value for test LATIC: Results called to and read back by: DAVIE Person calling: ROXANNE Date:03/07/2024 Time: 2010 Troponin-I High Sensitivity Reviewed date:03/14/2024 05:01:23 AM Interpretation: Performing Lab:[facility], [address] [place] [phone] Notes/Report: Troponin-I High Sensitivity < 2.7 <3.5-35.0 ng/L The Davila high sensitivity Troponin-I results should be used in conjunction with other diagnostic information such as ECG, clinical observations and information, and patient symptoms to aid in the diagnosis of VT. B Type Natriuretic Peptide Reviewed date:03/14/2024 05:01:23 AM Interpretation: Performing Lab:[facility], [address] [place] [phone] Notes/Report: B Type Natriuretic Peptide 10 <100 pg/mL For those patients who are being treated with Natrecor (nesiritide, recombinant BNP), BNP testing should be performed at least two hours post treatment in order to ensure that only endogenous levels of BNP are detected. Demetris Tee Reviewed date:03/14/2024 05:01:23 AM Interpretation: Performing Lab:[facility], [address] [place] [address] Notes/Report: Demetris Tee See Note Specimen held untested for 24 hours; Call to request Chemistry testing. Ethanol Reviewed date:03/14/2024 05:01:23 AM Interpretation: Performing Lab:[facility], [address] [place] [phone] Notes/Report: Ethanol < 10 Serum/plasma ethanol results are to be used for medical/treatment purposes only. SARS-CoV2/FLU/RSV Reviewed date:03/14/2024 05:01:24 AM Interpretation: Performing Lab:[facility], [address] [place] [phone] Notes/Report: Influenza A PCR NEGATIVE Negative Influenza [...] by authorized laboratories. Testing performed on the [employer] GeneXpert utilizing real-time RT-PCR. All SARS CoV2 and positive influenza A/B results are reported to [facility]. Blood Culture (First) Reviewed date:03/14/2024 05:01:23 AM Interpretation: Performing Lab:[address] [address] Notes/Report: Blood Culture (First) No growth after 5 days. Blood Culture (Second) Reviewed date:03/14/2024 05:01:23 AM Interpretation: Performing Lab:[address] [address] Notes/Report: Blood Culture (Second) No growth after 5 days. Lactic Acid-LAB USE ONLY Reviewed date:03/14/2024 05:01:24 AM Interpretation: Performing Lab:[address] [address] Notes/Report: Lactic Acid-LAB USE ONLY 2.2 0.5-2.0 mmol/L Critical value for test(s): LACTA Results called to and read back by: NAVEED Person calling: CORETTA Date: 03/07/24 Time: 2249 D Dimer High Sensitivity Reviewed date:03/14/2024 05:01:24 AM Interpretation: Performing Lab:[address] [address] Notes/Report: D Dimer High Sensitivity 823 D-DIMER [...] Gel Reviewed date:03/14/2024 05:01:24 AM Interpretation: Performing Lab:[address] [address] Notes/Report: Hold Green Gel See Note Specimen held untested for 24 hours; Call to request Chemistry testing. CT angio chest PE protocol Reviewed date:03/14/2024 05:01:24 AM Interpretation: Performing Lab: Notes/Report: [address] [address] [address] Scan Report Signed Patient: Jaren Up MR#: [id number] 287 : 1945 Acct:[id number] Age/Sex: 79 / M ADM Date: 03/07/24 Loc: [place] [address]: Subhash Welch MD Ordering Physician: Jeffrey Ellsworth MD Date of Service: 03/07/24 Procedure(s): CT angio chest PE protocol Accession Number(s): [id number] cc: Koby Peña MD; Jeffrey Ellsworth MD [...] by: Clarence Block MD 03/07/2024 11:20 PM [facility] Dictated By: Clarence Block MD Signed By: <Electronically signed by Clarence Block MD in OV> 03/07/24 2320 DD/ 1849 TD/TT: 03/07/24 1920 [employer] C[employer] Grader: [place] [address] CT Scan Report Signed Patient: Kane Up MR#: [id number] 287 : 1945 Acct:[id number] Age/Sex: 79 / M ADM Date: 03/07/24 Loc: [place] [address]: Niki Welch MD Ordering Physician: Jeffrey Ellsworth MD Date of Service: 03/07/24 Procedure(s): CT ang io chest PE protocol Accession Number(s): [id number] cc: Koby Peña MD; Jeffrey Ellsworth MD [...] by: Clarence Block MD 03/07/2024 11:20 PM EST RP Dictated By: Clarence Block MD Signed By: <Electron ically signed by Clarence Block MD in OV> 03/07/242319 DD/ 48 TD/TT: 03/07/241919 Sheep Or Calf Grader: XR chest 2V Reviewed date:03/14/2024 05:01:24 AM Interpretation: Performing Lab: Notes/Report: [address] [address] XRay Report Signed Patient: Jaren Up MR#: [id number] 287 : 1945 Acct:[id number] Age/Sex: 79 / M ADM Date: 03/07/24 Loc: .ED Attending Dr: Ordering Physician: Generic ED Physician Date of Service: 03/07/24 Procedure(s): XR chest 2V Accession Number(s): [id number] cc: Koby Peña MD; Generic ED Physician [...] 03/07/24 1648 DD/ 1545 TD/TT: 03/07/24 1550 She[employer] Calf Grader: COREY [address] [address] XRay Report Signed Patient: Kane Up MR#: [id number] 287 : 1945 Acct:[id number] Age/Sex: 79 / M ADM Date: 03/07/24 Loc: .ED Attending Dr: Ordering Physician: Generic ED Physician Date of Service: 03/07/24 Procedure(s): XR chest 2V Accession Number(s): [id number] cc: Koby Peña MD; Generic ED Physician [...] Dictated By: Melvi Wong MD Signed By: <Electron ically signed by Melvi Wong MD in OV> 03/07/24 1648 DD/ 1545 TD/TT: 03/07/24 1550 She[employer] Calf Grader: COREY XR shoulder RT min 2V Reviewed date:03/14/2024 05:01:24 AM Interpretation: Performing Lab: Notes/Report: [address] [address] XRay Report Signed Patient: Jaren Up MR#: [id number] 287 : 1945 Acct:[id number] Age/Sex: 79 / M ADM Date: 03/07/24 Loc: HO.ED Attending Dr: Ordering Physician: Generic ED Physician Date of Service: 03/07/24 Procedure(s): XR shoulder RT min 2V Accession Number(s): [id number] cc: Koby Peña MD; Generic ED Physician [...] by: Pierce Trevino MD 03/07/2024 05:37 PM [facility] Dictated By: Pierce Trevino MD Signed By: <Electronically signed by Pierce Trevino MD in OV> 03/07/24 1737 DD/ 1640 TD/TT: 03/07/24 1648 She[employer] Calf Grader: [place] [address] XRay Report Signed Patient: Kane Up MR#: [id number] 287 : 1945 Acct:[id number] Age/Sex: 79 / M ADM Date: 03/07/24 Loc: HO.ED Attending Dr: Ordering Physician: Generic ED Physician Date of Service: 03/07/24 Procedure(s): XR neeraj ulder RT min 2V Accession Number(s): [id number] cc: Koby Peña MD; Generic ED Physician [...] by: Pierce Trevino MD 03/07/2024 05:37 PM [facility] Dictated By: Pierce Trevino MD Signed By: <Electron icalljuana signed by Pierce Trevino MD in OV> 03/07/24 1737 DD/ 1640 TD/TT: 03/07/24 1648 She[employer] Calf Grader: DANYA Complete Blood Count Auto Di ff Reviewed date:03/14/2024 05:01:23 AM Interpretation: Performing Lab:[facility], [address] [place] [phone] Notes/Report: White Blood Count 9.4 4.8-10.8 X10*3/uL [...] Panel Reviewed date:03/14/2024 05:01:23 AM Interpretation: Performing Lab:[facility], [address] [place] [phone] Notes/Report: Sodium 142 135-145 mmol/L Potassium 3.8 [...] ONLY Reviewed date:03/14/2024 05:01:23 AM Interpretation: Performing Lab:[facility], [address] [place] [phone] Notes/Report: Lactic Acid-LAB USE ONLY 1.2 0.5-2.0 mmol/L PSA,Total (Free>4and<10) Reviewed date:03/14/2024 05:01:23 AM Interpretation: Performing Lab:[facility], [address] [place] [phone] Notes/Report: PSA,Total (Free>4and<10) 2.51 0.00-4.00 ng/mL A [...] Davila Alinity i Chemiluminescent Microparticle Immunoassay (CMIA) Pathology Reviewed date:05/29/2024 09:16:13 AM Interpretation: Performing Lab:[facility], [address] [place] [phone] Notes/Report: ------ Name: Jaren Up Age/Sex: 79/M : 1945 Unit#: [id number] Attend Dr: Vasiliy Alvarado MD Re05/05/24 Status : REG [facility] Location: [facility] Disch: ------ SPEC : [id number] RECD: 05/05/24 STATUS: KARIN CLIFFORD NUM: [id number] LISA: 05/05/24-[address] [facility] [address]: Huan Barker ENTERED: 05/05/24-11 42 SP [...] ON NEXT PAGE ------ Name: Jaren Up Maddy Age/Sex: 79/M : 1945 Unit#: [id number] Attend Dr: Vasiliy Alvarado MD Re05/05/24 Status : REG [facility] Location: [facility] Disch: ------ SPEC : [id number] RECD: 05/05/24 STATUS: KARIN CLIFFORD NUM: [id number] LISA: 05/05/24-[address] [facility] [address]: Huan Barker ENTERED: 05/05/24-11 42 SP TYPE: Surgical OTHR DR: Koby Peña MD, Pasquale MD ORDERED: Gross Micro L3, IHC, Add. immunos/4, CK7, CK20, Gia-3, p40, TTF-1 Copies To: Koby Peña MD [address] [facility] [place] [address] Vasiliy Alvarado MD [facility] Surgeons [address] [place] [address] [email or web address] Huan Barker [address] [place] [address] [email or web address] Signed (signature on file) Promise Benitez MD 05/09/24 0817 ------ END OF REPORT CT biopsy lung RT Reviewed date:05/29/2024 09:16:13 AM Interpretation: Performing Lab: Notes/Report: [address] [address] [address] Scan Report Signed Patient: Jaren Up MR#: [id number] 287 : 1945 Acct:[id number] Age/Sex: 79 / M ADM Date: 05/05/24 Loc: [facility] Attending Dr: Vasiliy Alvarado MD Ordering Physician: Vasiliy Alvarado MD Date of Service: 05/05/24 Procedure(s): CT biopsy lung RT Accession Number(s): [id number] cc: Koby Peña MD; Vasiliy Alvarado MD Report Number: [id number]: Total DLP = 186.00 mGy-cm PET avid [...] Oli Shirley MD 05/11/2024 01:47 PM EST Dictated By: Huan Barker Signed By: <Electronically signed by Huan Barker in OV> 05/11/24 1347 <Electronically signed by Oli Shirley MD in OV> 05/11/24 1349 DD/ 1041 TD/TT: 05/05/24 1120 [employer]ader: [place] [address] CT Scan Report Signed Patient: Kane Up MR#: [id number] 287 : 1945 Acct:[id number] Age/Sex: 79 / M ADM Date: 05/05/24 Loc: [facility] Attending Dr: Maia Tolbert MD Ordering Physician: Vasiliy Alvarado MD Date of Service: 05/05/24 Procedure(s): CT bio psy lung RT Accession Number(s): [id number] cc: Koby Peña MD; Vasiliy Alvarado MD [...] by: Oli Shirley MD 05/11/2024 01:47 PM [facility] Dictated By: Oscar Barker Signed By: <Yusef icadoris signed by Huan Barker in OV> 05/11/24 1347 <Electronically sign ed by Oli Shirley MD in OV> 05/11/24 1349 DD/ 1041 TD/TT: 05/05/24 1120 [employer] C[employer]ader: BLANE guidance in OR Reviewed date:07/02/2024 07:57:14 AM Interpretation: Performing Lab: Notes/Report: [address] [address] Fluoroscopy Report Signed Patient: Jaren Up MR#: [id number] 287 : 1945 Acct:[id number] Age/Sex: 79 / M ADM Date: 06/30/24 Loc: .[facility] Attending Dr: Vasiliy Alvarado MD Ordering Physician: Vasiliy Alvarado MD Date of Service: 06/30/24 Procedure(s): BLANE guidance in OR Accession Number(s): [id number] cc: Koby Peña MD; Vasiliy Alvarado MD EXAMINATION: FL GUIDANCE ONLY HISTORY: portacath COMPARISON: None available. TECHNIQUE: Fluoroscopy time: 16.1 seconds. Cumulative Dose: 2.3187 mGy. DAP: 1.0086 mGym2 Images: 1. FINDINGS: A single fluoroscopic spot film of the right upper chest demonstrates a Port-A-Cath in place. FL/FL guidance in OR IMPRESSION: Fluoroscopy during procedure. Please see procedure report for additional information. Electronically signed by: Koby Mays MD 06/30/2024 03:51 PM EDT RP Dictated By: Koby Mays MD Signed By: <Electronically signed by Koby Mays MD in OV> 06/30/24 1551 DD/ 1502 TD/TT: 06/30/24 1528 [employer]ader: [place] [address] Fluoroscopy Report Signed Patient: Kane Up MR#: [id number] 287 : 1945 Acct:[id number] Age/Sex: 79 / M ADM Date: 06/30/24 Loc: [facility] Attending Dr: Maia Tolbert MD Ordering Physician: Vasiliy Alvarado MD Date of Service: 06/30/24 Procedure(s): FL rayo kee in OR Accession Number(s): [id number] cc: Koyb Peña MD; Vasiliy Alvarado MD EXAMINATION: FL GUID ANCE ONLY HISTORY: portacath COMPARISON: None available. TECHNIQUE: Fluoroscopy time: 16 .1 seconds. Cumulative Dose: 2.3 187 mGy. DAP: 1.0086 mGym2 Images: 1. FINDINGS: A single fluoroscopi c spot film of the right upper chest demonstrates a Port-A-Cath in place. F L/FL guidance in OR IMPRESSION: Fluoroscopy during procedure. Please see procedure report for additional information. Electronically norah d by: Koby Mays MD 06/30/2024 03:51 PM EDT RP Dictated By: Koby Mays MD Signed By: <Electron ically signed by Koby Mays MD in OV> 06/30/24 1551 DD/ 1502 TD/TT: 06/30/24 1528 Sheep [employer] Calf Grader: Reason For Referral Reason Evaluate and Treat Diagnosis 1 Right shoulder pain (M25.511) Referral Organization Koby Peña III, MD Referring Provider First Name Koby Referring Provider Last Name Casey Referring Provider Speciality Internal M edicine Referred Provider [facility] er, Orthopedic Surgeons Referred Provider Specialty Orthopedic [facility] General Notes D Colleen 03/21/2024 03:51:49 PM > Faxed referral and progress note., Colleen Kearney 05/05/2024 03:57:09 PM > patient stated that his right shoulder pain was getting better and is holding off on seeing [facility] Orthopedics. Patient stated he spoke with Dr. [...] Specialty Hematology/O ncology General Notes Glo Garcia DIRECTOR PRISON 05/18 10:14:30 AM >pt called stated Dr [...] Problem Status W/U Status Risk Notes Problem 1890176 Former smoker (Z87.891) Active confirmed He seems motivated not to smoke. We formulated a plan to prevent relapse in time to stress and illness. Problem 619180037 Overweight (E66.3) Active confirmed He has gained 2 pounds. His body mass index is 29. We made a plan to lose weight at a rate of one half of a pound per week Problem 42447712 Allergy to sulfa drugs (Z88.2) Active confirmed Problem 430454558 Mixed hyperlipidemia (E78.2) Active confirmed His lipids are currently stable and no change in his regimen as necessary. Problem 000546120 Low back pain (M54.5) Active confirmed He has had surgery on his lumbar spine for degenerative disc disease and impingement of the left L5 nerve root at the foramen. Problem COPD (chronic obstructive pulmonary disease) (J44.9) Active confirmed He had a re cent hospitalization for respiratory failure. He is doing well now with prednisone. This was continued until he sees his cardiopulmonary specialist. He is comfortable at rest or with prolonged exertion becomes dyspneic and tachycardic. He is no longer smoking. 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 He has recovered from that. Problem 639009202 History of iron deficiency anemia (Z86.2) Active confirmed His iron deficiency anemia has resolved. He has not noticed any bleeding. He is compliant with his treatment. His ferritin is 86. Problem 776825888 Primary osteoarthritis of both knees (M17.0) Active confirmed He has had knee surgery. He will continue on current therapy and be monitored carefully. Problem 13906559 Pulmonary emphysema, unspecified emphysema type (J43.9) Active confirmed His lung diseas e is stable. He is no longer smoking. He is short of breath with exertion but not during the course of daily life. Problem 595038854 Rib lesion (M89.9) Active confirmed The pain from the rib destruction is much improved. He notices it only occasionally. He does not need to take strong pain medication for this. Problem 3944891872159 Benign prostatic hyperplasia with lower urinary tract symptoms (N40.1) Active confirmed He rises from sleep once and sometimes twice a night. He had no nodules in his prostate. We discussed modifications to his lifestyle he could make to reduce nocturia. Problem 147574197 Pulmonary neoplasm (D49.1) Active confirmed He is recei ving chemotherapy the [facility]. He reports that he was totally has had a major response. He is feeling much better. He looks much stronger. Problem 45009913 ASHD (arterioscleroti c heart disease) (I25.10) Active confirmed He denies any recent angina palpitations or syncope. Current therapy was continued. 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 Problem 713746971 Compression fracture of L1 vertebra, initial encounter (S32.010A) Active confirmed He is asymptomatic. This was an incidental finding on recent CT scan. Vital Signs Heart Rate 100 /min 08/16/2024 Temperature 97.3 degrees Fahrenheit 08/16/2024 Oximetry 96 % 08/16/2024 Blood pressure diastolic 78 mm Hg 08/16/2024 Height 72 in 08/16/2024 Blood pressure systolic 138 mm Hg 08/16/2024 Weight 196 lbs 08/16/2024 BMI 26.58 kg/m2 08/16/2024 Encounters Encounter Location Date Provider Diagnosis Koby Peña III, MD [address] [place] [address] [place] [address] 12/03/2023 Koby Peña Mixed hyperlipidemia E78.2 ; Benign prostatic hyperplasia with lower urinary tract symptoms N40.1 ; COPD (chronic obstructive pulmonary disease) J44.9 ; Pulmonary emphysema, unspecified emphysema type J43.9 ; ASHD (arteriosclerotic heart disease) I25.10 ; Primary osteoarthritis of both knees M17.0 ; Overweight E66.3 and Former smoker Z87.891 Koby Peña III, MD [address] [place] [address] [place] [address] 03/17/2024 Koby Peña Mixed hyperlipidemia E78.2 ; [...] Pulmonary neoplasm D49.1 Koby Peña III, MD [address] [place] [address] [place] [address] 03/31/2024 Koby Peña Mixed hyperlipidemia E78.2 ; Pulmonary emphysema, unspecified emphysema type J43.9 ; Rib lesion M89.9 ; COPD (chronic obstructive pulmonary disease) J44.9 ; Primary osteoarthritis of both knees M17.0 ; ASHD (arteriosclerotic heart disease) I25.10 ; Former smoker Z87.891 ; Benign prostatic hyperplasia with lower urinary tract symptoms N40.1 and Overweight E66.3 Koby Peña III, MD [address] [place] [address] [place] [address] 05/17/2024 Koby Peña Metastatic non-small cell lung [...] initial encounter S32.010A Koby Peña III, MD [address] [place] [address] [place] [address] 06/14/2024 Koby Peña Mixed hyperlipidemia E78.2 ; [...] and Pulmonary emphysema, unspecified emphysema type J43.9 Koby Peña III, MD [address] [place] [address] [place] [address] 08/16/2024 Koby Peña Mixed hyperlipidemia E78.2 ; [...] initial encounter S32.010A and Rib lesion M89.9 Koby Peña III, MD [address] [place] [address] [place] [address] 03/14/2024 Koby Peña III, MD [address] [place] [address] [place] [address] 03/15/2024 Kboy Peña III, MD [address] [place] [address] [place] [address] 03/22/2024 Koby Peña III, MD [address] [place] [address] [place] [address] 04/11/2024 Koby Peña III, MD [address] [place] [address] [place] [address] 05/18/2024 Koby Peña Assessments Encounter Date Diagnosis [...] This was continued until he sees his cardiopulmonary specialist. He is comfortable at rest or [...] of stage IV squamous cell carcinoma lung. 06/14/2024 Mixed hyperlipidemia (ICD-10 - E78.2) His lipids are currently stable and no change in his regimen as necessary. 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 He chief cardiopulmonary technologist been referred to medical oncology at [facility] where he is about to undergo 08/16/2024 Mixed hyperlipidemia (ICD-10 - E78.2) His lipids are currently stable and no change in his regimen as necessary. 08/16/2024 Pulmonary neoplasm (ICD-10 - D49.1) He is receiving chemotherapy the [facility]. He reports that he was totally has had a major response. He is feeling much better. He looks much stronger. 12/03/2023 COPD (chronic obstructive pulmonary disease) (ICD-10 [...] This was continued until he sees his cardiopulmonary specialist. He is comfortable at rest or [...] not during the course of daily life. 06/14/2024 Rib lesion (ICD-10 - M89.9) A [...] a pulmonary neoplasm. His PSA is normal. 08/16/2024 COPD (chronic obstructive pulmonary disease) (ICD-10 - J44.9) He had a recent hospitalization for respiratory failure. He is doing well now with prednisone. This was continued until he sees his cardiopulmonary specialist. He is comfortable at rest or with prolonged exertion becomes dyspneic and tachycardic. He is no longer smoking. 12/03/2023 Pulmonary emphysema, unspecified emphysema type (ICD-10 [...] This was continued until he sees his cardiopulmonary specialist. He is comfortable at rest or with prolonged exertion becomes dyspneic and tachycardic. He is no longer smoking. 05/17/2024 Mixed hyperlipidemia (ICD-10 - E78.2) His lipids are currently stable and no change in his regimen as necessary. 06/14/2024 Compression fracture of L1 vertebra, initial encounter (ICD-10 - S32.010A) He is asymptomatic. This was an incidental finding on recent CT scan. 08/16/2024 Pulmonary emphysema, unspecified emphysema type (ICD-10 [...] palpitations or syncope. Current therapy was continued. 06/14/2024 Overweight (ICD-10 - E66.3) He has gained 2 pounds. His body mass index is 29. We made a plan to lose weight at a rate of one half of a pound per week 08/16/2024 ASHD (arteriosclerotic heart disease) (ICD-10 - [...] cancer. He has recovered from that. 06/14/2024 Positive PPD (ICD-10 - R76.11) History obtained from old records shows he was PPD +1973. It is not clear if he was ever treated. He has never had clinical TB. Some years ago he developed an interstitial infiltrate in his lung and was hospitalized. 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 He has recovered from that. 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 12/03/2023 Overweight (ICD-10 - E66.3) He has [...] of left knee (ICD-10 - Z87.828) 06/14/2024 History of torn meniscus of left knee (ICD-10 - Z87.828) 08/16/2024 Primary osteoarthritis of both knees (ICD-10 [...] in time to stress and illness. 06/14/2024 Former smoker (ICD-10 - Z87.891) He seems motivated not to smoke. We formulated a plan to prevent relapse in time to stress and illness. 08/16/2024 History of torn meniscus of left knee (ICD-10 - Z87.828) 03/17/2024 Benign prostatic hyperplasia with lower urinary [...] half of a pound per week 06/14/2024 Primary osteoarthritis of both knees (ICD-10 - M17.0) He has had knee surgery. He will continue on current therapy and be monitored carefully. 08/16/2024 Former smoker (ICD-10 - Z87.891) He seems motivated not to smoke. We formulated a plan to prevent relapse in time to stress and illness. 03/17/2024 Compression fracture of L1 vertebra, initial encounter (ICD-10 - S32.010A) He is asymptomatic. This was an incidental finding on recent CT scan. 05/17/2024 Compression fracture of L1 vertebra, initial encounter (ICD-10 - S32.010A) He is asymptomatic. This was an incidental finding on recent CT scan. 06/14/2024 COPD (chronic obstructive pulmonary disease) (ICD-10 - J44.9) He had a recent hospitalization for respiratory failure. He is doing well now with prednisone. This was continued until he sees his cardiopulmonary specialist. He is comfortable at rest or with prolonged exertion becomes dyspneic and tachycardic. He is no longer smoking. 08/16/2024 Overweight (ICD-10 - E66.3) He has gained 2 pounds. His body mass index is 29. We made a plan to lose weight at a rate of one half of a pound per week 03/17/2024 Pulmonary neoplasm (ICD-10 - D49.1) He has several abnormal masslike densities in the left lower lobe and destruction of the right third rib. A needle biopsy of the rib mass has been ordered under CT guidance. 06/14/2024 Pulmonary emphysema, unspecified emphysema type (ICD-10 - J43.9) His lung disease is stable. He is no longer smoking. He is short of breath with exertion but not during the course of daily life. 08/16/2024 Compression fracture of L1 vertebra, initial encounter (ICD-10 - S32.010A) He is asymptomatic. This was an incidental finding on recent CT scan. 08/16/2024 Rib lesion (ICD-10 - M89.9) The pain from the rib destruction is much improved. He notices it only occasionally. He does not need to take strong pain medication for this. Plan Of Treatment Pending Test Test Name Order Date PROFILE, FASTING (COMPREHENSIVE METABOLI C) 12/03/2023 PROFILE, FASTING (COMPREHENSIVE METABOLI C) 02/05/2021 PROFILE, FASTING (COMPREHENSIVE METABOLI C) 08/11/2023 PROFILE, FASTING (COMPREHENSIVE METABOLI C) 05/13/2023 PROFILE, FASTING (COMPREHENSIVE METABOLI C) 12/06/2020 PROFILE, FASTING (COMPREHENSIVE METABOLI C) 11/28/2022 PROFILE, FASTING (COMPREHENSIVE METABOLI C) 06/11/2021 LIPID PANEL 06/11/2021 LIPID PANEL 02/05/2021 LIPID PANEL 12/06/2020 LIPID PANEL 11/28/2022 FERRITIN 05/13/2023 PSA, TOTAL 06/11/2021 PSA, TOTAL 12/03/2023 PSA, TOTAL 08/11/2023 PSA, TOTAL 12/06/2020 PSA, TOTAL 11/28/2022 CBC w DIFF 12/06/2020 CBC w DIFF 11/28/2022 CBC w DIFF 06/11/2021 CBC w DIFF 02/05/2021 CBC WITH AUTO DIFF 12/03/2023 CBC WITH AUTO DIFF 08/11/2023 CBC WITH AUTO DIFF 05/13/2023 Lipid Panel 12/03/2023 Lipid Panel 08/11/2023 Lipid Panel 05/13/2023 Alkaline Phosphatase Isoenzyme Next Appt Details Provider Name:Koby Peña, 12/02/2024 10:00:00 AM, [address] [place] [address] [address]ALLO MAST[address], [place], [address], Insurance Providers Payer Name Payer Address Payer Phone Subscriber Number Group Number Insured Name Patient Relationship to Insured Coverage Start Date Coverage End Date MEDICARE NGS [address] [place] [phone] [id number] Jaren Up Self - patient is the insured [facility] [address] [place], [place] [id number] Jaren Up Self - patient is the insured Medical (General) History Medical History History ICD Code hyperlipidemia COPD by 2015 PFTs obesity 2008 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 Montague, [facility], for iron deficiency anemia 04/2018 lumbar spine fusion, [facility] 2016 Partial left medial meniscec geovani and debridement, Dr. Armand Milner, [facility] 03/2010 Incomplete colonoscopy, [facility], Dr. Mo, severe sigmoid diverticulosis 01/2010 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 De León 03/2009 Bronchoscopy for interstitial pneumonia, [facility] 07/2007 bilateral knee replacements fracture right arm age 18 1963 Hospitalization History Reason Date(Month/Year) No history Hospitalized for five days d ue to respiratory distress and shoulder injury.
--- OUTSIDE RECORDS SUMMARY | 2024-08-22 15:42 | XMS_ITS | Clinical Summary ---
Author Organization [facility] Address [address] [place] [address] Phone Care Team Providers Care Light Coil Winder Name Role Phone Unavailable Primary Care Provider Unavailabl e Social History Tobacco Use Types Packs/Day Years [...] Vaccines (1 of 2) 01/02/1996 RSV Immunization Adult Patie nts (1 - 1-dose 75+ series) 2021 COVID-19 Vaccine ( - 2023-2 5 season) 2023 Cholesterol Screening (Lipid Panel) 03/25/2024 Depression Screening 03/25/2024 Falls Risk Assessment 03/25/2024 Hepatitis C Screening 03/25/2024 Medicare Annual Wellness Visit 03/25/2024 Social Influencers of Health Screening 03/25/2024 Influenza Vaccine (Season Ended) 2024 HIB Vaccines Aged Out No longer eligi [...] age to complete this topic Meningococcal B Vaccine Aged Out No l onger eligible based on patient's age to complete this topic RSV Immunization Patients Un rosales 20 months Aged Out No longer eligible b ased on patient's age to complete this topic Varicella Vaccines Aged Out No longer eligible based on patient's age to complete this topic Insurance MEDICARE [facility]
[2024-08-22 15:54] LABS: B Type Natriuretic Peptide 17 pg/mL (<100)
[2024-08-22 15:56] LABS: Alanine Aminotransferase 323 U/L (0-40); Albumin Level 3.8 g/dL (3.5-5.0); Anion Gap 18 (12-20); Aspartate Amino Transferase 303 U/L (5-37); Bilirubin Total 0.5 mg/dL (0.0-1.0); Blood Urea Nitrogen 22 mg/dL (9-16); Carbon Dioxide 26 mmol/L (22-29); Chloride 100 mmol/L (96-108); Creatinine Clr Calc Pharmacy 102.9; Estimated Glomerular Filt Rate > 60; Glucose Random 128 mg/dL (60-115); Magnesium 1.8 mg/dL (1.6-2.6); Potassium 4.5 mmol/L (3.3-5.1); Sodium 139 mmol/L (135-145); Total Protein 7.3 g/dL (6.5-8.0)
[2024-08-22 15:59] LABS: Troponin-I High Sensitivity 539.1 ng/L (<3.5-35.0)
[2024-08-22 16:16] LABS: Influenza A PCR NEGATIVE (Negative); Influenza B PCR NEGATIVE (Negative); Resp Syncy Virus RNA Qual PCR NEGATIVE (Negative); SARS COV2 PCR INHOUSE NEGATIVE (Negative)
[2024-08-22 16:26] LABS: Alkaline Phosphatase 122 U/L (39-117)
[2024-08-22] MEDS: Azithromycin 500 MG in 0.9 % Sodium Chloride 250 ML 125 MG IV (16:31)
[2024-08-22 17:00] LABS: Venous Blood Gas Refer to POC result
[2024-08-22 17:01] LABS: VBG Base Excess 4.3 mmol/L; VBG HCO3 31 mmol/L (22-26); VBG pCO2 54 mmHg; VBG pH 7.36 (7.32-7.43); VBG pO2 37 mmHg
[2024-08-22 17:14] LABS: Lactic Acid 2.7 mmol/L (0.5-2.0)
[2024-08-22 17:21] LABS: Troponin-I High Sensitivity 491.9 ng/L (<3.5-35.0)
[2024-08-22] MEDS: Lactated Ringers 500 ML 999 ML IV (17:46)
[2024-08-22 18:43] LABS: Reflex Lactate? Lactic Acid Added
--- NOTE | 2024-08-22 19:00 | PC.NURSE ---
this rn assumed care of pt, pt resting in stretcher no acute distress noted. pt on 3l nc sating 96%, sinus tach on tele 120-125bpm.
[2024-08-22 19:14] LABS: ~Lactic Acid-LAB USE ONLY 2.7 mmol/L (0.5-2.0)
[2024-08-22] MEDS: iohexoL 350 MG/ML 100 ML INFUS..BTL 65 ML IV (19:36)
--- NOTE | 2024-08-22 20:31 | ECG_ITS ---
Test Reason : TACHYCARDIA Blood Pressure : */* mmHG Vent. Rate : 123 BPM Atrial Rate : 123 BPM P-R Int : 144 ms QRS Dur : 128 ms QT Int : 338 ms P-R-T Axes : 34 -5 25 degrees QTcB Int : 483 ms Sinus tachycardia Right bundle branch block Cannot rule out Inferior infarct , age undetermined Abnormal ECG When compared with ECG of 22-Aug-2024 15:11, Premature atrial complexes are no longer Present Referred By: Pinky Rojas Electronically Signed By: Tre Grace
[2024-08-22 20:55] LABS: Reflex Lactate? 2 Y
[2024-08-22] MEDS: Aspirin 81 MG TAB.CHEW PO (21:26)
--- NOTE | 2024-08-22 21:26 | PC.NURSE ---
pt medicated per mar, tolerated whole well.
[2024-08-22 21:37] LABS: ~Lactic Acid-LAB USE ONLY 2.1 mmol/L (0.5-2.0)
--- NOTE | 2024-08-22 21:43 | PHA.MEDREC ---
Addendum entered by Nadir Zuniga RPh 08/22/24 22:00: MED REC CHECKED BY [facility] Original Note: Pharmacy Consult ? Medication Reconciliation Pharmacy has completed the medication reconciliation. Patient states he is no longer taking Tylenol 650 mg, Hydrocodone-Acetaminophen, Ibuprofen 400 mg, Lidocaine- Prilocaine, and Prednisone 10 mg.
--- NOTE | 2024-08-22 21:53 | PC.NURSE ---
pt placed onto hospital bed at this time for comfort
[2024-08-22] MEDS: Albuterol/Iprat 2.5/0.5MG 3 ML AMPUL.NEB INHALE (21:57)
--- NOTE | 2024-08-22 23:24 | P.HPHOSP_ITS ---
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 The patient denies any fever, chills, nausea or vomiting. He reports that he recently started a new chemotherapy that is supposed to start immunotherapy this week. He has had a poor appetite but has been hydrating well. He reports when drinking liquids he coughs and chokes often. He has been using 3 L via NC at home, usually does not need this at baseline. Review of Systems 2 Constitutional: Constitutional: Denies body ache(s), Denies chills, Reports fatigue, Denies fever(s) and Denies headache(s) Eyes: Eyes: Denies change in vision and Denies photophobia ENT: Denies headache(s), Denies nasal congestion, Denies nasal discharge and Denies sore throat Cardiovascular: Cardiovascular: Denies chest pain, Denies syncope, Denies rapid heart rate, Denies leg edema, Denies lightheadedness and Reports dyspnea Respiratory: Respiratory: Reports chest congestion, Reports cough, Reports dyspnea and Reports wheezing Gastrointestinal: Gastrointestinal: Denies abdominal pain, Denies constipation, Denies diarrhea, Denies nausea and Denies vomiting Genitourinary: Genitourinary: Denies oliguria, Denies dysuria and Denies urinary urgency Musculoskeletal: Musculoskeletal: Denies myalgias Integumentary/Breasts: Skin/Breast: Denies rash Neurologic: Denies confusion, Denies syncope and Denies headache(s) Psychiatric: Psychiatric: Denies confusion Endocrine: Endocrine: Reports fatigue Hematologic/Lymphatic: Hematologic/Lymphatic: Denies easy bleeding and Denies easy bruising Allergic/Immunologic: Allergic/Immunologic: Reports wheezing [facility] Medical History Former tobacco use Basal cell carcinoma Testicular cancer Elevated cholesterol DVT (deep venous thrombosis) Cancer COPD (chronic obstructive pulmonary disease) Surgical History History of orchiectomy Hx of spinal fusion History of bronchoscopy History of laryngoscopy H/O colonoscopy Hx of surgical procedure (05/05/24) History of arthroscopy of left knee History of total replacement of both hip joints Social History Household Members: None Housing: House Are you a primary care assistant to a significant other at home: No Do you presently have visiting nurse or other home services: Yes (home O2) Alcohol intake: current Alcohol intake frequency: a few times a month Alcohol type: beer Patient Tobacco Use Status: Former Tobacco user Tobacco use type: Cigarette Years Smoked: 42 Advance Directives: No Advance Directives Information Provided: No Do you have a plan to hurt others: No Plan service: Yes Narrative: Former smoker, no alcohol or drug use Meds Allergies Allergy/AdvReac Type Severity Reaction Status Date / Time Penicillins [PENICILLINS] Allergy Severe Facial Verified 08/22/24 15:09 Swelling Sulfa (Sulfonamide Allergy Severe Facial Verified 08/22/24 15:09 Antibiotics) Swelling [Sulfa (Sulfonamides)] isoniazid Allergy Intermediate Hives Verified 08/22/24 15:09 Active Medications: Current Medications Acetaminophen (Acetaminophen 325 Mg Tablet) 650 mg PO Q6H PRN PRN Reason: Pain, Mild 1-3,fever,headache Albuterol/Ipratropium (Albuterol/Iprat 2.5/0.5mg 3 Ml Ampul.Neb) 3 ml INHALE RQ4H WHILE AWAKE GUS Calcium Carbonate (Calcium Carbonate 750 Mg Tab.Chew) 750 mg PO Q4H PRN PRN Reason: Heartburn Ceftriaxone Sodium (Ceftriaxone Sodium 1 Gm Vial) 1 gm IVPUSH Q24H GUS Enoxaparin Sodium (Enoxaparin Sodium 40 Mg/0.4 Ml Syringe) 40 mg SUBCUT Q24H GUS Metronidazole (Flagyl) 500 mg in 100 mls @ 100 mls/hr IV Q8H GUS Magnesium Hydroxide (Milk Of Magnesia 30 Ml Oral.Susp) 30 ml PO DAILY PRN PRN Reason: Constipation Melatonin (Melatonin 3 Mg Tablet) 6 mg PO BEDTIME PRN PRN Reason: Insomnia Methylprednisolone Sodium Succinate (Methylprednisolone Sod Succ 125 Mg Vial) 60 mg IVPUSH Q12H GUS Ondansetron HCl (Ondansetron Hcl 4 Mg/2 Ml Vial) 4 mg IVPUSH Q8H PRN PRN Reason: Nausea and Vomiting Sodium Chloride (0.9 % Sodium Chloride Flush 3 Ml Syringe) 3 ml IVFLUSH QSHIFT [facility] Home Medications ?Medication ?Instructions ?Recorded ?Confirmed ?Last Taken ?Type multivitamin (Daily Multi-Vitamin 1 tab PO DAILY 09/12/20 08/22/24 08/19/24 History tablet) pravastatin 80 mg tablet 80 mg PO BEDTIME 09/02/22 08/22/24 08/19/24 History fluticasone furoate 200 1 ea inhalation DAILY 08/22/24 08/22/24 08/19/24 History mcg-vilanterol 25 mcg/dose inhalation powder (Breo Ellipta) umeclidinium 62.5 mcg/actuation 1 inh inhalation DAILY 08/22/24 08/22/24 08/22/24 History blister powder for inhalation (Incruse Ellipta) Physical Exam 2 Vital Signs and Narrative: Vital Signs: Last Vital Signs Temp 97.8 F 08/22/24 21:10 Pulse 86 08/22/24 21:57 Resp 22 H 08/22/24 21:57 BP 117/75 08/22/24 21:10 Pulse Ox 99 08/22/24 21:10 O2 Del Method Nasal Cannula 08/22/24 21:10 O2 Flow Rate 4 08/22/24 21:10 Oxygen Flow Rate 3 08/22/24 15:05 BMI result Body Mass Index 27.3 General: AOx3, no acute distress Resp: Diminished throughout, no wheezing or crackles currently CVS: S1, S2, RRR GI: +BS, NT, no distention Skin: Warm, dry Neuro: Cranial nerves II-XII grossly intact bilaterally. Motor grossly intact bilaterally Extremities: No LE edema Psych: Appropriate affect Const: General: No confusion Orientation/consciousness: No confusion Eyes: Direct Ophthalmoscopy: No photophobia Neuro: General: No confusion Results Labs 08/22/24 15:23 08/22/24 15:23 Labs: Laboratory Results - last 24 hr 08/22/24 08/22/24 08/22/24 15:23 16:40 16:45 MCV 92.6 MCH 30.8 MCHC 33.3 RDW 15.1 Plt Count 185 MPV 8.2 L Immature Gran % (Auto) 0.6 H Neut % (Auto) 86.9 H Lymph % (Auto) 7.4 L Hand % (Auto) 5.0 Eos % (Auto) 0.0 Baso % (Auto) 0.1 Lymph # (Auto) 0.9 L Hand # (Auto) 0.6 Eos # (Auto) 0.0 Baso # (Auto) 0.0 Abs Immat Gran (auto) 0.07 H Absolute Neuts (auto) 10.0 H Absolute Nucleated RBC 0.000 Nucleated RBC % (auto) 0.0 PT 11.3 INR 1.0 VBG pH 7.36 VBG pCO2 54 VBG pO2 37 VBG HCO3 31 H VBG O2 Saturation 51.0 VBG Base Excess 4.3 Anion Gap 18 Estim Creat Clear Calc 102.9 Estimated GFR > 60 Random Glucose 128 H Lactic Acid 2.7 H* Lactic Acid F/U @ 2Hr Lactic Acid F/U @ 4Hr Calcium 10.0 D Magnesium 1.8 Total Bilirubin 0.5 AST 303 H ALT 323 H Alkaline Phosphatase 122 H B-Natriuretic Peptide 17 Total Protein 7.3 Albumin 3.8 Influenza Type A (PCR) NEGATIVE Influenza Type B (PCR) NEGATIVE RSV RNA Qual (PCR) NEGATIVE SARS-CoV-2 RNA (RT-PCR) NEGATIVE 08/22/24 08/22/24 18:51 21:15 MCV MCH MCHC RDW Plt Count MPV Immature Gran % (Auto) Neut % (Auto) Lymph % (Auto) Hand % (Auto) Eos % (Auto) Baso % (Auto) Lymph # (Auto) Hand # (Auto) Eos # (Auto) Baso # (Auto) Abs Immat Gran (auto) Absolute Neuts (auto) Absolute Nucleated RBC Nucleated RBC % (auto) PT INR VBG pH VBG pCO2 VBG pO2 VBG HCO3 VBG O2 Saturation VBG Base Excess Anion Gap Estim Creat Clear Calc Estimated GFR Random Glucose Lactic Acid Lactic Acid F/U @ 2Hr 2.7 H* Lactic Acid F/U @ 4Hr 2.1 H* Calcium Magnesium Total Bilirubin AST ALT Alkaline Phosphatase B-Natriuretic Peptide Total Protein Albumin Influenza Type A (PCR) Influenza Type B (PCR) RSV RNA Qual (PCR) SARS-CoV-2 RNA (RT-PCR) Imaging Radiologist's Impressions: Impressions Chest X-Ray 08/22/24 15:30 IMPRESSION: Known right-sided chest wall mass. No acute abnormality is seen. 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 Sepsis with acute hypoxic respiratory failure secondary to aspiration pneumonia and acute COPD exacerbation - WBC 11.5, tachypneic and tachycardic, lactic acid 2.7, improved to 2.1 - chest x-ray with known right-sided chest wall mass, no acute abnormality - chest CTA negative for central or large proximal pulmonary emboli. Severe bullous emphysematous changes, with possible superimposed aspiration or pneumonia in the right lower lobe. Suspect post treatment response with decreasing size of the erosive chest wall mass, adenopathy. - given 500 mL fluids in ED, BP stable, hold on further fluids at this time - started on azithromycin in ED, change to Flagyl and ceftriaxone due to likely aspiration pneumonia - NPO pending speech eval - [facility] eval - Solu-Medrol 60 mg IV b.i.d. - DuoNebs q.4h while awake - monitor CBC and CMP Elevated LFTs - secondary to sepsis - monitor LFTs Elevated troponin - 539, 491 on repeat - EKG nonischemic with right bundle branch block and sinus tachycardia HLD/CAD - continue statin DNR/DNI VTE prophylaxis: Lovenox Patient with sepsis and acute hypoxic respiratory failure secondary to aspiration pneumonia and acute COPD exacerbation, requiring admission for at least 2 midnights stay for IV antibiotics, steroids, breathing treatments and monitoring. Quality Stroke Does the patient have a stroke diagnosis?: No VTE Prior VTE?: No VTE Risk Level:: Medical - moderate - high VTE Device Contraindication: Treatment Not Indicated VTE Drug Contraindication: N/A - Med Ordered
[2024-08-23] VITALS (9 sets, daily range): BP systolic 110–143; BP diastolic 71–87; PULSE 107–136; RESP 16–33; TEMP 36.5–36.9; O2SAT 95–98; BMI 27.8
[2024-08-23] MEDS: cefTRIAXone sodium 1 GM VIAL IVPUSH (00:29)
[2024-08-23] MEDS: 0.9 % Sodium Chloride Flush 3 ML SYRINGE IVFLUSH ×4 (00:29→20:27)
[2024-08-23] MEDS: metroNIDAZOLE/NS 500 MG/100 ML PIGGYBACK 100 MG IV ×3 (00:29→17:36)
[2024-08-23 06:03] LABS: MANUAL DIFF FLAG NO
[2024-08-23 06:25] LABS: Alanine Aminotransferase 262 U/L (0-40); Albumin Level 3.1 g/dL (3.5-5.0); Alkaline Phosphatase 96 U/L (39-117); Anion Gap 12 (12-20); Aspartate Amino Transferase 221 U/L (5-37); Bilirubin Total 0.3 mg/dL (0.0-1.0); Blood Urea Nitrogen 18 mg/dL (9-16); Calcium 9.1 mg/dL (8.4-10.2); Carbon Dioxide 28 mmol/L (22-29); Chloride 103 mmol/L (96-108); Creatinine Clr Calc Pharmacy 111.7; Estimated Glomerular Filt Rate > 60; Glucose Random 136 mg/dL (60-115); Potassium 4.4 mmol/L (3.3-5.1); Sodium 139 mmol/L (135-145); Total Protein 5.9 g/dL (6.5-8.0)
[2024-08-23 06:39] LABS: Basophils Percent Auto 0.1 % (0-2); Hematocrit 37.5 % (42.0-52.0); Hemoglobin 12.4 g/dl (14.0-18.0); Imm Gran Abs Auto 0.06 X10*3/uL (0.00-0.03); Imm Gran Pct Auto 0.6 % (0.0-0.4); Lymphocytes Absolute Auto 0.7 X10*3/uL (1.2-4.9); Lymphocytes Percent Auto 6.8 % (20-40); Mean Corpuscular HGB Conc 33.1 g/dl (31.0-36.0); Mean Corpuscular Hemoglobin 30.1 pg (27.0-33.0); Mean Platelet Volume 8.5 fL (9.4-12.4); Monocytes Absolute Auto 0.6 X10*3/uL (0.1-1.2); Monocytes Percent Auto 5.8 % (2-11); Neutrophils Percent Auto 86.7 % (45-73); Platelet Count 177 X10*3/uL (160-400); Red Blood Count 4.12 X10*6/uL (4.60-5.80); Red Cell Distribution Width 14.8 % (11.0-16.0); White Blood Count 10.3 X10*3/uL (4.8-10.8)
[2024-08-23] MEDS: Albuterol/Iprat 2.5/0.5MG 3 ML AMPUL.NEB INHALE ×4 (07:29→19:52)
[2024-08-23] MEDS: Enoxaparin Sodium 40 MG/0.4 ML SYRINGE SUBCUT (08:09)
--- NOTE | 2024-08-23 10:23 | PC.NURSE ---
Per speech, if pt needs to take pills they should be whole or crushed in a puree
--- NOTE | 2024-08-23 10:45 | P.PNIM_ITS ---
Subjective Subjective Date of Service: 08/23/24 Review of Systems Follow up sepsis, resp failure PNA and COPD Still sob especially while laying down Physical Exam 2 Vital Signs: Vital Signs: Last Vital Signs Temp 98.2 F 08/23/24 08:14 Pulse 115 H 08/23/24 08:14 Resp 28 H 08/23/24 08:14 BP 110/71 08/23/24 08:14 Pulse Ox 96 08/23/24 08:14 O2 Del Method Nasal Cannula 08/23/24 08:14 O2 Flow Rate 2 08/23/24 08:14 Oxygen Flow Rate 3 08/22/24 15:05 BMI result Body Mass Index 27.8 Appearing in no acute distress lung sounds are clear to auscultation heart regular rate rhythm, clear S1, S2 positive bowel sounds, abdomen is soft, nontender neuro patient is alert x3, no focal deficits Objective Data Active Medications Acetaminophen (Acetaminophen 325 Mg Tablet) 650 mg PO Q6H PRN PRN Reason: Pain, Mild 1-3,fever,headache Albuterol/Ipratropium (Albuterol/Iprat 2.5/0.5mg 3 Ml Ampul.Neb) 3 ml INHALE RQ4H WHILE AWAKE [facility] Last Admin: 08/23/24 07:29 Dose: 3 ml Documented By: TWILA Calcium Carbonate (Calcium Carbonate 750 Mg Tab.Chew) 750 mg PO Q4H PRN PRN Reason: Heartburn Ceftriaxone Sodium (Ceftriaxone Sodium 1 Gm Vial) 1 gm IVPUSH Q24H [facility] Last Admin: 08/23/24 00:29 Dose: 1 gm Documented By: MANUEL Enoxaparin Sodium (Enoxaparin Sodium 40 Mg/0.4 Ml Syringe) 40 mg SUBCUT Q24H [facility] Last Admin: 08/23/24 08:09 Dose: 40 mg Documented By: MAIKOL Metronidazole (Flagyl) 500 mg in 100 mls @ 100 mls/hr IV Q8H [facility] Last Infusion: 08/23/24 09:08 Dose: Infused Documented By: LORENA Magnesium Hydroxide (Milk Of Magnesia 30 Ml Oral.Susp) 30 ml PO DAILY PRN PRN Reason: Constipation Melatonin (Melatonin 3 Mg Tablet) 6 mg PO BEDTIME PRN PRN Reason: Insomnia Methylprednisolone Sodium Succinate (Methylprednisolone Sod Succ 125 Mg Vial) 60 mg IVPUSH Q12H [facility] Last Admin: 08/23/24 05:39 Dose: 60 mg Documented By: MANUEL Ondansetron HCl (Ondansetron Hcl 4 Mg/2 Ml Vial) 4 mg IVPUSH Q8H PRN PRN Reason: Nausea and Vomiting Sodium Chloride (0.9 % Sodium Chloride Flush 3 Ml Syringe) 3 ml IVFLUSH QSHIFT [facility] Last Admin: 08/23/24 08:10 Dose: 3 ml Documented By: MAIKOL Labs 08/23/24 05:35 08/23/24 05:35 Labs: Laboratory Results - last 24 hr 08/22/24 08/22/24 08/22/24 15:23 16:40 16:45 MCV 92.6 MCH 30.8 MCHC 33.3 RDW 15.1 Plt Count 185 MPV 8.2 L Immature Gran % (Auto) 0.6 H Neut % (Auto) 86.9 H Lymph % (Auto) 7.4 L [place] % (Auto) 5.0 Eos % (Auto) 0.0 Baso % (Auto) 0.1 Lymph # (Auto) 0.9 L [place] # (Auto) 0.6 Eos # (Auto) 0.0 Baso # (Auto) 0.0 Abs Immat Gran (auto) 0.07 H Absolute Neuts (auto) 10.0 H Absolute Nucleated RBC 0.000 Nucleated RBC % (auto) 0.0 PT 11.3 INR 1.0 VBG pH 7.36 VBG pCO2 54 VBG pO2 37 VBG HCO3 31 H VBG O2 Saturation 51.0 VBG Base Excess 4.3 Anion Gap 18 Estim Creat Clear Calc 102.9 Estimated GFR > 60 Random Glucose 128 H Lactic Acid 2.7 H* Lactic Acid F/U @ 2Hr Lactic Acid F/U @ 4Hr Calcium 10.0 D Magnesium 1.8 Total Bilirubin 0.5 AST 303 H ALT 323 H Alkaline Phosphatase 122 H B-Natriuretic Peptide 17 Total Protein 7.3 Albumin 3.8 Influenza Type A (PCR) NEGATIVE Influenza Type B (PCR) NEGATIVE RSV RNA Qual (PCR) NEGATIVE SARS-CoV-2 RNA (RT-PCR) NEGATIVE 08/22/24 08/22/24 08/23/24 18:51 21:15 05:35 MCV 91.0 MCH 30.1 MCHC 33.1 RDW 14.8 Plt Count 177 MPV 8.5 L Immature Gran % (Auto) 0.6 H Neut % (Auto) 86.7 H Lymph % (Auto) 6.8 L [place] % (Auto) 5.8 Eos % (Auto) 0.0 Baso % (Auto) 0.1 Lymph # (Auto) 0.7 L [place] # (Auto) 0.6 Eos # (Auto) 0.0 Baso # (Auto) 0.0 Abs Immat Gran (auto) 0.06 H Absolute Neuts (auto) 9.0 H Absolute Nucleated RBC 0.000 Nucleated RBC % (auto) 0.0 PT INR VBG pH VBG pCO2 VBG pO2 VBG HCO3 VBG O2 Saturation VBG Base Excess Anion Gap 12 Estim Creat Clear Calc 111.7 Estimated GFR > 60 Random Glucose 136 H Lactic Acid Lactic Acid F/U @ 2Hr 2.7 H* Lactic Acid F/U @ 4Hr 2.1 H* Calcium 9.1 D Magnesium Total Bilirubin 0.3 AST 221 H ALT 262 H Alkaline Phosphatase 96 B-Natriuretic Peptide Total Protein 5.9 L Albumin 3.1 L Influenza Type A (PCR) Influenza Type B (PCR) RSV RNA Qual (PCR) SARS-CoV-2 RNA (RT-PCR) Assessment and Plan (1) Aspiration pneumonia: Status: Acute Plan 79-year-old male with a past medical history significant for 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, stage II COPD, HLD/CAD, who presents to the ED due to shortness of breath/dyspnea for the past week with a productive cough with white sputum. Sepsis with acute hypoxic respiratory failure secondary to aspiration pneumonia and acute COPD exacerbation chest CTA negative for central or large proximal pulmonary emboli. Severe bullous emphysematous changes, with possible superimposed aspiration or pneumonia in the right lower lobe. s/p 500 mL fluids in ED, BP stable, hold on further fluids at this time started on azithromycin in ED, change to Flagyl and ceftriaxone due to likely aspiration pneumonia STATISTICAL PROGRAMMER ANALYST eval> Ground solids Solu-Medrol 60 mg IV b.i.d. DuoNebs q.4h while awake Elevated LFTs Trending down secondary to sepsis monitor LFTs Elevated troponin 539, 491 on repeat EKG nonischemic with right bundle branch block and sinus tachycardia HLD/CAD continue statin DNR/DNI VTE prophylaxis: Lovenox Quality Stroke Does the patient have a stroke diagnosis?: No VTE Prior VTE?: No VTE Risk Level:: Medical - moderate - high VTE Device Contraindication: Treatment Not Indicated VTE Drug Contraindication: N/A - Med Ordered
--- NOTE | 2024-08-23 11:12 | MHC.SL.SWA ---
Risk of Aspiration Due to: lethargy Dysphasia Diet Status: UPGRADE Liquid Consistency and Strategies for Safe Swallow: Liquid Intake Recommendation: Thin Liquid Intake Strategies: NO STRAWS Solid Food Consistency: Dietary Recommendations: Grnd/Mech Altered (NDD2) Additional Modifications to Solid Foods: sauce/gravy Oral Medication Intake: Whole with Puree Please contact the pharmacy regarding appropriate crushable or liquid drug formulations that are available whenever modified delivery is recommended. Compensatory Strategies and Precautions to be Taken for Safe Swallow: small sips effortful swallow double swallow (intermittently) Supervision While Eating and Drinking for Safe Swallow: Intermittent Supervision Recommendation for Speech: Inpatient Speech Therapy Comment: Recommend UPGRADE to ground solids and thin liquid (NO STRAWS, small sips). Pills whole/crushed in puree d/t lethargy and low toleration for water (only small sips at a time). BURGLARY INVESTIGATOR to f/u tomorrow to monitor toleration and upgrade if warranted. Pt is independent feed but should receive intermittent supervision. Counselor/Art Therapist Clinican/Clinical Fellow: No Supervisory Statement: I have reviewed and agree with the student/clinical fellow's documentation: N/A Speech Language Pathologist: Polly Urias M.A., CCC-BURGLARY INVESTIGATOR
--- NOTE | 2024-08-23 12:30 | MHC.CM.PN ---
PT LIVES ALONE HAS HOME LITERS PTS PLAN IS TO RETURN HOME WHEN DCD ?VNA DC PLAN HOME
[2024-08-23] MEDS: Metoprolol Tartrate 5 MG/5 ML VIAL IVPUSH (18:54)
[2024-08-23] MEDS: Lactated Ringers 500 ML 999 ML IV (20:21)
[2024-08-23] MEDS: Pravastatin Sodium 80 MG TABLET PO (20:34)
[2024-08-24] VITALS (11 sets, daily range): BP systolic 122–143; BP diastolic 58–93; PULSE 107–130; RESP 15–18; TEMP 36.1–36.7; O2SAT 94–98
[2024-08-24] MEDS: cefTRIAXone sodium 1 GM VIAL IVPUSH (00:51)
[2024-08-24] MEDS: metroNIDAZOLE/NS 500 MG/100 ML PIGGYBACK 100 MG IV ×3 (00:51→15:16)
[2024-08-24] MEDS: Throat Lozenge, Medicated LOZENGE 1 LOZENGE MUCOUS MEM (01:13)
[2024-08-24] MEDS: Enoxaparin Sodium 40 MG/0.4 ML SYRINGE SUBCUT (05:42)
[2024-08-24 07:10] LABS: MANUAL DIFF FLAG NO
[2024-08-24 07:35] LABS: Basophils Percent Auto 0.1 % (0-2); Hematocrit 42.8 % (42.0-52.0); Hemoglobin 13.9 g/dl (14.0-18.0); Imm Gran Pct Auto 0.6 % (0.0-0.4); Lymphocytes Absolute Auto 0.8 X10*3/uL (1.2-4.9); Lymphocytes Percent Auto 5.1 % (20-40); Mean Corpuscular HGB Conc 32.5 g/dl (31.0-36.0); Mean Corpuscular Hemoglobin 30.4 pg (27.0-33.0); Mean Corpuscular Volume 93.7 fL (80.0-98.0); Mean Platelet Volume 8.6 fL (9.4-12.4); Monocytes Absolute Auto 1.1 X10*3/uL (0.1-1.2); Monocytes Percent Auto 6.5 % (2-11); Neutrophils Absolute Auto 14.2 x10*3/uL (2.0-8.3); Neutrophils Percent Auto 87.7 % (45-73); Platelet Count 227 X10*3/uL (160-400); Red Blood Count 4.57 X10*6/uL (4.60-5.80); Red Cell Distribution Width 15.5 % (11.0-16.0); White Blood Count 16.2 X10*3/uL (4.8-10.8)
[2024-08-24 07:38] LABS: Alanine Aminotransferase 279 U/L (0-40); Albumin Level 3.5 g/dL (3.5-5.0); Alkaline Phosphatase 101 U/L (39-117); Anion Gap 12 (12-20); Aspartate Amino Transferase 162 U/L (5-37); Bilirubin Total 0.2 mg/dL (0.0-1.0); Blood Urea Nitrogen 21 mg/dL (9-16); Calcium 9.4 mg/dL (8.4-10.2); Carbon Dioxide 30 mmol/L (22-29); Chloride 104 mmol/L (96-108); Creatinine Clr Calc Pharmacy 122.8; Estimated Glomerular Filt Rate > 60; Glucose Random 116 mg/dL (60-115); Potassium 4.3 mmol/L (3.3-5.1); Sodium 142 mmol/L (135-145); Total Protein 6.5 g/dL (6.5-8.0)
[2024-08-24] MEDS: Multivitamin TABLET 1 TAB PO (07:41)
[2024-08-24] MEDS: Albuterol/Iprat 2.5/0.5MG 3 ML AMPUL.NEB INHALE ×4 (07:59→19:17)
[2024-08-24] MEDS: Tiotropium Bromide 2.5 mcg 1 PUFF/2.5 MCG MIST.INHAL 2 PUFF INHALE (08:07)
[2024-08-24] MEDS: Fluticasone/Vilanterol 200/25 BLST.W.DEV 1 PUFF INHALE (08:07)
[2024-08-24] MEDS: 0.9 % Sodium Chloride Flush 3 ML SYRINGE IVFLUSH ×3 (10:29→21:01)
--- NOTE | 2024-08-24 12:22 | MHC.CM.PN ---
CM met with Patient at bedside. Patient's Sister/Namrata is the current HCP but d/t health issues of her own, she feels she cannot continue as the Agent. Patient wants to speak with his Niece/Ava and Sister/Jackie to ask if they are wiling to be his HCP Agents(CM provided Patient with a blank HCP form). Patient went on to explain that his pump for his well dried up and that city water is being put in, as we speak. Patient has been buying water, sponge bathing, and using a commode. Patient states that his Neighbor called the [employer] [place] [employer], there is a permit, and he has a filter changer to choker hooker to [employer] water. Patient will benefit from a PT Eval to assist with disposition; as of right now, he is not agreeable to STR/SNF nor VNA. CM will continue to follow.
--- NOTE | 2024-08-24 14:10 | HO.PM.IMPN ---
Subjective Subjective Date of Service: 08/24/24 Review of Systems Follow up sepsis, resp failure PNA and COPD Still sob especially while laying down Physical Exam Vital Signs: Vital Signs: Last Vital Signs Temp 97.2 F 08/24/24 11:04 Pulse 118 H 08/24/24 11:30 Resp 18 08/24/24 11:30 BP 128/80 08/24/24 11:04 Pulse Ox 97 08/24/24 11:04 O2 Del Method Nasal Cannula 08/24/24 11:04 O2 Flow Rate 3 08/24/24 11:04 Oxygen Flow Rate 3 08/22/24 15:05 BMI result Body Mass Index 27.8 Appearing in no acute distress lung sounds are clear to auscultation heart regular rate rhythm, clear S1, S2 positive bowel sounds, abdomen is soft, nontender neuro patient is alert x3, no focal deficits Objective Data Active Medications Acetaminophen (Acetaminophen 325 Mg Tablet) 650 mg PO Q6H PRN PRN Reason: Pain, Mild 1-3,fever,headache Albuterol/Ipratropium (Albuterol/Iprat 2.5/0.5mg 3 Ml Ampul.Neb) 3 ml INHALE RQ4H WHILE AWAKE [facility] Last Admin: 08/24/24 11:22 Dose: 3 ml Documented By: SONYA Benzocaine (Throat Lozenge, Medicated Lozenge) 1 lozenge MUCOUS MEM Q2H PRN PRN Reason: Sore Throat Last Admin: 08/24/24 01:13 Dose: 1 lozenge Documented By: HANNAH Calcium Carbonate (Calcium Carbonate 750 Mg Tab.Chew) 750 mg PO Q4H PRN PRN Reason: Heartburn Ceftriaxone Sodium (Ceftriaxone Sodium 1 Gm Vial) 1 gm IVPUSH Q24H [facility] Last Admin: 08/24/24 00:51 Dose: 1 gm Documented By: HANNAH Enoxaparin Sodium (Enoxaparin Sodium 40 Mg/0.4 Ml Syringe) 40 mg SUBCUT Q24H [facility] Last Admin: 08/24/24 05:42 Dose: 40 mg Documented By: HANNAH Fluticasone/Vilanterol (Fluticasone/Vilanterol 200/25 Blst.W.Dev) 1 puff INHALE RDAILY [facility] Last Admin: 08/24/24 08:07 Dose: 1 puff Documented By: SONYA Metronidazole (Flagyl) 500 mg in 100 mls @ 100 mls/hr IV Q8H [facility] Last Infusion: 08/24/24 10:29 Dose: Infused Documented By: ELSA Magnesium Hydroxide (Milk Of Magnesia 30 Ml Oral.Susp) 30 ml PO DAILY PRN PRN Reason: Constipation Melatonin (Melatonin 3 Mg Tablet) 6 mg PO BEDTIME PRN PRN Reason: Insomnia Methylprednisolone Sodium Succinate (Methylprednisolone Sod Succ 125 Mg Vial) 60 mg IVPUSH Q12H [facility] Last Admin: 08/24/24 05:41 Dose: 60 mg Documented By: HANNAH Metoprolol Tartrate (Metoprolol Tartrate 5 Mg/5 Ml Vial) 5 mg IVPUSH Q6H PRN; Protocol PRN Reason: Heart Rate >100 Last Admin: 08/23/24 18:54 Dose: 5 mg Documented By: CHARLES Multivitamins/Vitamin C (Multivitamin Tablet) 1 tab PO DAILY [facility] Last Admin: 08/24/24 07:41 Dose: 1 tab Documented By: BEBA Ondansetron HCl (Ondansetron Hcl 4 Mg/2 Ml Vial) 4 mg IVPUSH Q8H PRN PRN Reason: Nausea and Vomiting Pravastatin Sodium (Pravastatin Sodium 80 Mg Tablet) 80 mg PO BEDTIME [facility] Last Admin: 08/23/24 20:34 Dose: 80 mg Documented By: HANNAH Sodium Chloride (0.9 % Sodium Chloride Flush 3 Ml Syringe) 3 ml IVFLUSH QSHIFT [facility] Last Admin: 08/24/24 10:29 Dose: 3 ml Documented By: ELSA Tiotropium [place] (Tiotropium [place] 2.5 Mcg 1 Puff/2.5 Mcg Mist.Inhal) 2 puff INHALE RDAILY [facility] Last Admin: 08/24/24 08:07 Dose: 2 puff Documented By: SONYA Labs 08/24/24 07:06 08/24/24 07:06 Labs: Laboratory Results - last 24 hr 08/24/24 07:06 MCV 93.7 MCH 30.4 MCHC 32.5 RDW 15.5 Plt Count 227 D MPV 8.6 L Immature Gran % (Auto) 0.6 H Neut % (Auto) 87.7 H Lymph % (Auto) 5.1 L [place] % (Auto) 6.5 Eos % (Auto) 0.0 Baso % (Auto) 0.1 Lymph # (Auto) 0.8 L [place] # (Auto) 1.1 Eos # (Auto) 0.0 Baso # (Auto) 0.0 Abs Immat Gran (auto) 0.10 H Absolute Neuts (auto) 14.2 H Absolute Nucleated RBC 0.000 Nucleated RBC % (auto) 0.0 Anion Gap 12 Estim Creat Clear Calc 122.8 Estimated GFR > 60 Random Glucose 116 H Calcium 9.4 Total Bilirubin 0.2 AST 162 H ALT 279 H Alkaline Phosphatase 101 Total Protein 6.5 Albumin 3.5 Microbiology Microbiology Results: Microbiology 08/22/24 16:30 Blood Culture - Preliminary Blood - Venous No growth after 24 hours. 08/22/24 16:30 Blood Culture - Preliminary Blood - Venous No growth after 24 hours. 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 Sepsis with acute hypoxic respiratory failure secondary to aspiration pneumonia and acute COPD exacerbation chest CTA negative for central or large proximal pulmonary emboli. Severe bullous emphysematous changes, with possible superimposed aspiration or pneumonia in the right lower lobe. s/p 500 mL fluids in ED, BP stable, hold on further fluids at this time started on azithromycin in ED, change to Flagyl and ceftriaxone due to likely aspiration pneumonia STAFF NURSE ANESTHETIST eval> Ground solids, add ensure to diet Solu-Medrol 60 mg IV b.i.d., wean down DuoNebs q.4h while awake Elevated LFTs Trending down secondary to sepsis monitor LFTs Elevated troponin 539, 491 on repeat EKG nonischemic with right bundle branch block and sinus tachycardia HLD/CAD continue statin DNR/DNI VTE prophylaxis: Lovenox Quality Stroke Does the patient have a stroke diagnosis?: No VTE Prior VTE?: No VTE Risk Level:: Medical - moderate - high VTE Device Contraindication: Treatment Not Indicated VTE Drug Contraindication: N/A - Med Ordered
[2024-08-24] MEDS: methylPREDNISolone Sod Succ 40 MG/ML VIAL IVPUSH (15:17)
--- NOTE | 2024-08-24 15:57 | MHC.SL.SWA ---
Dysphasia Diet Status: DOWNGRADE liquids Liquid Consistency and Strategies for Safe Swallow: Liquid Intake Recommendation: [place] Thick Liquid Intake Strategies: Small Sips Solid Food Consistency: Dietary Recommendations: Grnd/Mech Altered (NDD2) Oral Medication Intake: Crushed with Puree Please contact the pharmacy regarding appropriate crushable or liquid drug formulations that are available whenever modified delivery is recommended. Compensatory Strategies and Precautions to be Taken for Safe Swallow: Sitting Upright (90 deg) Small Bites and Sips Supervision While Eating and Drinking for Safe Swallow: Tray Set Up, Intermittent Supervision Swallowing Recommended Treatments: Compens. Strategy Educat. Recommendation for Speech: Inpatient Speech Therapy Comment: Compensatory Strategies and Precautions to be Taken for Safe Swallow: small sips effortful swallow Recommend DOWNGRADE to [place]CTAR THICK liquids w/ cues for small sips and effortful swallow. Continue with GROUND solids and pills CRUSHED in PUREE. Pt requires TRAY SET UP & INTERMITTENT SUPERVISION. Considering no hx of dysphagia, recommend continued FURNITURE TECHNICIAN tx at next level of care if pt has not yet returned to regular solids and thin liquids (baseline diet) and/or continues to present w/ hoarse vocal quality. Pt may be considered for MBSS (outpatient vs. inpatient). Foreign Broadcast Specialist Clinican/Clinical Fellow: No Supervisory Statement: I have reviewed and agree with the student/clinical fellow's documentation: No Speech Language Pathologist: Polly Urias M.A., CCC-FURNITURE TECHNICIAN
[2024-08-24] MEDS: Pravastatin Sodium 80 MG TABLET PO (21:01)
[2024-08-25] VITALS (12 sets, daily range): BP systolic 122–145; BP diastolic 64–83; PULSE 101–140; RESP 16–22; TEMP 36.3–37.1; O2SAT 93–100
[2024-08-25] MEDS: cefTRIAXone sodium 1 GM VIAL IVPUSH (00:28)
[2024-08-25] MEDS: metroNIDAZOLE/NS 500 MG/100 ML PIGGYBACK 100 MG IV ×3 (00:29→16:34)
[2024-08-25] MEDS: Enoxaparin Sodium 40 MG/0.4 ML SYRINGE SUBCUT (05:58)
[2024-08-25 07:08] LABS: MANUAL DIFF FLAG NO
[2024-08-25 07:11] LABS: Basophils Percent Auto 0.1 % (0-2); Hematocrit 42.7 % (42.0-52.0); Hemoglobin 13.9 g/dl (14.0-18.0); Imm Gran Pct Auto 0.7 % (0.0-0.4); Lymphocytes Percent Auto 6.6 % (20-40); Mean Corpuscular HGB Conc 32.6 g/dl (31.0-36.0); Mean Corpuscular Hemoglobin 30.6 pg (27.0-33.0); Mean Corpuscular Volume 94.1 fL (80.0-98.0); Mean Platelet Volume 8.6 fL (9.4-12.4); Monocytes Absolute Auto 1.5 X10*3/uL (0.1-1.2); Monocytes Percent Auto 9.6 % (2-11); Neutrophils Absolute Auto 12.7 x10*3/uL (2.0-8.3); Platelet Count 234 X10*3/uL (160-400); Red Blood Count 4.54 X10*6/uL (4.60-5.80); Red Cell Distribution Width 15.9 % (11.0-16.0); White Blood Count 15.3 X10*3/uL (4.8-10.8)
[2024-08-25] MEDS: 0.9 % Sodium Chloride Flush 3 ML SYRINGE IVFLUSH ×2 (07:14→16:34)
[2024-08-25 07:32] LABS: Alanine Aminotransferase 250 U/L (0-40); Albumin Level 3.5 g/dL (3.5-5.0); Alkaline Phosphatase 100 U/L (39-117); Anion Gap 12 (12-20); Aspartate Amino Transferase 106 U/L (5-37); Bilirubin Total 0.3 mg/dL (0.0-1.0); Blood Urea Nitrogen 27 mg/dL (9-16); Calcium 9.7 mg/dL (8.4-10.2); Carbon Dioxide 32 mmol/L (22-29); Chloride 105 mmol/L (96-108); Estimated Glomerular Filt Rate > 60; Glucose Random 93 mg/dL (60-115); Potassium 4.2 mmol/L (3.3-5.1); Sodium 145 mmol/L (135-145); Total Protein 6.5 g/dL (6.5-8.0)
[2024-08-25] MEDS: Albuterol/Iprat 2.5/0.5MG 3 ML AMPUL.NEB INHALE ×4 (07:33→18:59)
[2024-08-25] MEDS: Fluticasone/Vilanterol 200/25 BLST.W.DEV 1 PUFF INHALE (07:33)
[2024-08-25] MEDS: Tiotropium Bromide 2.5 mcg 1 PUFF/2.5 MCG MIST.INHAL 2 PUFF INHALE (07:33)
[2024-08-25] MEDS: Multivitamin TABLET 1 TAB PO (08:13)
--- NOTE | 2024-08-25 13:11 | MHC.SL.SWA ---
Speech Pathologist Impression: Risk of Aspiration Due to: Dysphasia Diet Status: Recommend patient continue on diet of Ground Mechanical (NDD2) with [place] Thick Liquids, Pills crushed in puree. Liquid Consistency and Strategies for Safe Swallow: Liquid Intake Recommendation: [place] Thick Liquid Intake Strategies: Small Sips Solid Food Consistency: Dietary Recommendations: Grnd/Mech Altered (NDD2) Additional Modifications to Solid Foods: Oral Medication Intake: Crushed with Puree Please contact the pharmacy regarding appropriate crushable or liquid drug formulations that are available whenever modified delivery is recommended. Compensatory Strategies and Precautions to be Taken for Safe Swallow: Sitting Upright (90 deg) Double Swallow Liquids from Cup Small Bites and Sips Alternate Liquids/Solids Supervision While Eating and Drinking for Safe Swallow: Tray Set Up Foods to Avoid: Difficult to chew solids. Swallowing Recommended Treatments: Compens. Strategy Educat. Recommendation for Speech: Inpatient Speech Therapy Comment: Patient seen at breakfast this morning for toleration of diet, which he was in the middle of when the CHANGE ROOM ATTENDANT arrived. Patient was very pleasant and talkative, reported that he was enjoying his meal and felt he was doing better on the thickened liquid. Patient noted to have harsh, mildly hoarse vocal quality, and speaks with a moderately loud voice. As patient was talking, he began to cough repeatedly, reaching for spitoon and then spitting out both Phlegm and evident pieces of egg that he had recently consumed. CHANGE ROOM ATTENDANT had patient take sip of NT liquid, and practice double swallow, which patient executed well. CHANGE ROOM ATTENDANT then had patient take bite of mashed bananas, double swallow, then take sip of liquid and double swallow. Strategy intended for managing pharyngeal residual which is suspected. Patient was very cooperative, said he felt everything went down ok. Given history of repeat aspiration pna (as reported by patient), evident difficulty swallowing/oral/pharyngeal dysphagia, patient may benefit from MBSS study, either as a part of this inpatient stay or as outpatient, to further assess swallow function, and keep patient safe. Recommend patient continue on diet of Ground Mechanical (NDD2) with [place] Thick Liquids, Pills crushed in puree. Compensatory Strategies and Precautions to be Taken for Safe Swallow: small sips effortful swallow double swallow (intermittently) Supervision While Eating and Drinking for Safe Swallow: Intermittent Supervision Frequency/Duration: Date Range for Service Req: Timeline to reassess: Ramp Service Employee Clinican/Clinical Fellow: No Supervisory Statement: I have reviewed and agree with the student/clinical fellow's documentation: No Speech Language Pathologist: Monique Duffy M.A., CCC-CHANGE ROOM ATTENDANT
--- NOTE | 2024-08-25 13:20 | HO.PM.IMPN ---
Subjective Subjective Date of Service: 08/25/24 Interval History: Seen and examined this morning for aspiration pneumonia, COPD exacerbation Patient reports that his breathing is ?rough? and he spent most of the night in the recliner Intermittent coughing reported Review of Systems Review of Systems: Yes all other systems are reviewed and are negative Constitutional Constitutional: Denies chills and Denies fever(s) Physical Exam Vital Signs: Vital Signs: Last Vital Signs Temp 98.2 F 08/25/24 12:00 Pulse 128 H 08/25/24 12:00 Resp 20 08/25/24 12:00 BP 122/64 08/25/24 12:00 Pulse Ox 96 08/25/24 12:00 O2 Del Method Nasal Cannula 08/25/24 12:00 O2 Flow Rate 4 08/25/24 12:00 Oxygen Flow Rate 3 08/22/24 15:05 BMI result Body Mass Index 27.8 Const: General: cooperative, comfortable, alert and awake Nutritional Appearance: average body habitus Orientation/consciousness: patient oriented x3 Resp: Effort & Inspection: normal respiratory effort, able to speak in complete sentences, no respiratory distress and no use of accessory muscles Cardio: Rate: tachycardic Neuro: General: patient oriented x3 Objective Data Active Medications Acetaminophen (Acetaminophen 325 Mg Tablet) 650 mg PO Q6H PRN PRN Reason: Pain, Mild 1-3,fever,headache Albuterol/Ipratropium (Albuterol/Iprat 2.5/0.5mg 3 Ml Ampul.Neb) 3 ml INHALE RQ4H WHILE AWAKE [facility] Last Admin: 08/25/24 11:26 Dose: 3 ml Documented By: SONYA Benzocaine (Throat Lozenge, Medicated Lozenge) 1 lozenge MUCOUS MEM Q2H PRN PRN Reason: Sore Throat Last Admin: 08/24/24 01:13 Dose: 1 lozenge Documented By: HANNAH Calcium Carbonate (Calcium Carbonate 750 Mg Tab.Chew) 750 mg PO Q4H PRN PRN Reason: Heartburn Ceftriaxone Sodium (Ceftriaxone Sodium 1 Gm Vial) 1 gm IVPUSH Q24H [facility] Last Admin: 08/25/24 00:28 Dose: 1 gm Documented By: ABDIEL Enoxaparin Sodium (Enoxaparin Sodium 40 Mg/0.4 Ml Syringe) 40 mg SUBCUT Q24H [facility] Last Admin: 08/25/24 05:58 Dose: 40 mg Documented By: ABDIEL Fluticasone/Vilanterol (Fluticasone/Vilanterol 200/25 Blst.W.Dev) 1 puff INHALE RDAILY [facility] Last Admin: 08/25/24 07:33 Dose: 1 puff Documented By: SONYA Metronidazole (Flagyl) 500 mg in 100 mls @ 100 mls/hr IV Q8H [facility] Last Infusion: 08/25/24 09:39 Dose: Infused Documented By: YVON Magnesium Hydroxide (Milk Of Magnesia 30 Ml Oral.Susp) 30 ml PO DAILY PRN PRN Reason: Constipation Melatonin (Melatonin 3 Mg Tablet) 6 mg PO BEDTIME PRN PRN Reason: Insomnia Methylprednisolone Sodium Succinate (Methylprednisolone Sod Succ 40 Mg/Ml Vial) 40 mg IVPUSH Q24H [facility] Last Admin: 08/24/24 15:17 Dose: 40 mg Documented By: ELSA Metoprolol Tartrate (Metoprolol Tartrate 5 Mg/5 Ml Vial) 5 mg IVPUSH Q6H PRN; Protocol PRN Reason: Heart Rate >100 Last Admin: 08/23/24 18:54 Dose: 5 mg Documented By: CHARLES Multivitamins/Vitamin C (Multivitamin Tablet) 1 tab PO DAILY [facility] Last Admin: 08/25/24 08:13 Dose: 1 tab Documented By: ELSA Ondansetron HCl (Ondansetron Hcl 4 Mg/2 Ml Vial) 4 mg IVPUSH Q8H PRN PRN Reason: Nausea and Vomiting Pravastatin Sodium (Pravastatin Sodium 80 Mg Tablet) 80 mg PO BEDTIME [facility] Last Admin: 08/24/24 21:01 Dose: 80 mg Documented By: ABDIEL Sodium Chloride (0.9 % Sodium Chloride Flush 3 Ml Syringe) 3 ml IVFLUSH QSHIFT [facility] Last Admin: 08/25/24 07:14 Dose: 3 ml Documented By: YVON Tiotropium [place] (Tiotropium [place] 2.5 Mcg 1 Puff/2.5 Mcg Mist.Inhal) 2 puff INHALE RDAILY [facility] Last Admin: 08/25/24 07:33 Dose: 2 puff Documented By: SONYA Labs 08/25/24 06:42 08/25/24 06:42 Labs: Laboratory Results - last 24 hr 08/25/24 06:42 MCV 94.1 MCH 30.6 MCHC 32.6 RDW 15.9 Plt Count 234 MPV 8.6 L Immature Gran % (Auto) 0.7 H Neut % (Auto) 83.0 H Lymph % (Auto) 6.6 L Sampson % (Auto) 9.6 Eos % (Auto) 0.0 Baso % (Auto) 0.1 Lymph # (Auto) 1.0 L [place] # (Auto) 1.5 H Eos # (Auto) 0.0 Baso # (Auto) 0.0 Abs Immat Gran (auto) 0.10 H Absolute Neuts (auto) 12.7 H Absolute Nucleated RBC 0.000 Nucleated RBC % (auto) 0.0 Anion Gap 12 Estim Creat Clear Calc 125.0 Estimated GFR > 60 Random Glucose 93 Calcium 9.7 Total Bilirubin 0.3 AST 106 H ALT 250 H Alkaline Phosphatase 100 Total Protein 6.5 Albumin 3.5 Microbiology Microbiology Results: Microbiology 08/22/24 16:30 Blood Culture - Preliminary Blood - Venous No growth after 48 hours. 08/22/24 16:30 Blood Culture - Preliminary Blood - Venous No growth after 48 hours. 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 Sepsis with acute hypoxic respiratory failure secondary to aspiration pneumonia and acute COPD exacerbation chest CTA negative for central or large proximal pulmonary emboli. Severe bullous emphysematous changes, with possible superimposed aspiration or pneumonia in the right lower lobe. Continue Flagyl and ceftriaxone due to likely aspiration pneumonia (allergy to PCN) [employer] eval> Ground solids, add ensure to diet Solu-Medrol 40q24 h wean down wean DuoNebs Currently requires 4 L of supplemental oxygen, baseline 3 L as needed Elevated LFTs Trending down secondary to sepsis hold statin for now, can likely resume on discharge ptosis present for approx 1 week, left >right brain ct pending given h/o cancer; less likely stroke as b/l neuro consult pending MG also possibility although does seem to fluctuate, will check labs Elevated troponin 539, 491 on repeat EKG nonischemic with right bundle branch block and sinus tachycardia no chest pain due to persistent tachycardia, will obtain echocardiogram-if abnormal will consult Cardiology HLD/CAD continue statin DNR/DNI VTE prophylaxis: Lovenox Requires ongoing inpatient hospital stay for further evaluation of ptosis, treatment of respiratory failure, tachycardia and elevated cardiac enzymes requiring further workup Quality Stroke Does the patient have a stroke diagnosis?: No VTE Prior VTE?: No VTE Risk Level:: Medical - moderate - high VTE Device Contraindication: Treatment Not Indicated VTE Drug Contraindication: N/A - Med Ordered
--- NOTE | 2024-08-25 13:49 | PC.NURSE ---
Pt assessed this am , having difficulties to keep his dorcas eyelids open , left is more droopy than right , no swelling , Yareli Moore assessed pt at the bedside and appropriate labs and test are being ordered
[2024-08-25 14:28] LABS: Troponin-I High Sensitivity 185.5 ng/L (<3.5-35.0)
[2024-08-25] MEDS: methylPREDNISolone Sod Succ 40 MG/ML VIAL IVPUSH (14:32)
[2024-08-25] MEDS: Loratadine 10 MG TABLET PO (14:32)
[2024-08-25 14:56] LABS: TSH reflex Free T4 1.38 uIU/mL (0.32-4.0)
--- NOTE | 2024-08-25 16:41 | P.CNNE_ITS ---
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 This consultation was requested because of ptosis. He said that droopiness of eyelids started few days ago and at times he said double. When I saw him he was not seeing double but his left eye was completely closed. When I open both eyes, he said he said double. He always had difficulty breathing related to COPD in some difficulty swallowing. He was suffering from aspiration pneumonia at this time. Review of Systems 2 Review of Systems: Difficulty breathing and swallowing. [facility] Past Medical History Medical History Former tobacco use Basal cell carcinoma Testicular cancer Elevated cholesterol DVT (deep venous thrombosis) Cancer COPD (chronic obstructive pulmonary disease) Surgical History Surgical History History of orchiectomy Hx of spinal fusion History of bronchoscopy History of laryngoscopy H/O colonoscopy Hx of surgical procedure (05/05/24) History of arthroscopy of left knee History of total replacement of both hip joints Social History Social History Household Members: None Housing: House Are you a primary manager long term care to a significant other at home: No Do you presently have visiting nurse or other home services: No Alcohol intake: current Alcohol intake frequency: a few times a month Alcohol type: beer Patient Tobacco Use Status: Former Tobacco user Tobacco use type: Cigarette Years Smoked: 42 service: No Meds Allergies Allergy/AdvReac Type Severity Reaction Status Date / Time Penicillins [PENICILLINS] Allergy Severe Facial Verified 08/22/24 15:09 Swelling Sulfa (Sulfonamide Allergy Severe Facial Verified 08/22/24 15:09 Antibiotics) Swelling [Sulfa (Sulfonamides)] isoniazid Allergy Intermediate Hives Verified 08/22/24 15:09 Active Medications: Current Medications Acetaminophen (Acetaminophen 325 Mg Tablet) 650 mg PO Q6H PRN PRN Reason: Pain, Mild 1-3,fever,headache Albuterol/Ipratropium (Albuterol/Iprat 2.5/0.5mg 3 Ml Ampul.Neb) 3 ml INHALE RQ6H WHILE AWAKE [facility] Last Admin: 08/25/24 15:27 Dose: 3 ml Benzocaine (Throat Lozenge, Medicated Lozenge) 1 lozenge MUCOUS MEM Q2H PRN PRN Reason: Sore Throat Last Admin: 08/24/24 01:13 Dose: 1 lozenge Calcium Carbonate (Calcium Carbonate 750 Mg Tab.Chew) 750 mg PO Q4H PRN PRN Reason: Heartburn Ceftriaxone Sodium (Ceftriaxone Sodium 1 Gm Vial) 1 gm IVPUSH Q24H [facility] Last Admin: 08/25/24 00:28 Dose: 1 gm Enoxaparin Sodium (Enoxaparin Sodium 40 Mg/0.4 Ml Syringe) 40 mg SUBCUT Q24H [facility] Last Admin: 08/25/24 05:58 Dose: 40 mg Fluticasone/Vilanterol (Fluticasone/Vilanterol 200/25 Blst.W.Dev) 1 puff INHALE RDAILY [facility] Last Admin: 08/25/24 07:33 Dose: 1 puff Metronidazole (Flagyl) 500 mg in 100 mls @ 100 mls/hr IV Q8H [facility] Last Infusion: 08/25/24 09:39 Dose: Infused Loratadine (Loratadine 10 Mg Tablet) 10 mg PO DAILY [facility] Last Admin: 08/25/24 14:32 Dose: 10 mg Magnesium Hydroxide (Milk Of Magnesia 30 Ml Oral.Susp) 30 ml PO DAILY PRN PRN Reason: Constipation Melatonin (Melatonin 3 Mg Tablet) 6 mg PO BEDTIME PRN PRN Reason: Insomnia Methylprednisolone Sodium Succinate (Methylprednisolone Sod Succ 40 Mg/Ml Vial) 40 mg IVPUSH Q24H [facility] Last Admin: 08/25/24 14:32 Dose: 40 mg Metoprolol Tartrate (Metoprolol Tartrate 5 Mg/5 Ml Vial) 5 mg IVPUSH Q6H PRN; Protocol PRN Reason: Heart Rate >100 Last Admin: 08/23/24 18:54 Dose: 5 mg Multivitamins/Vitamin C (Multivitamin Tablet) 1 tab PO DAILY [facility] Last Admin: 08/25/24 08:13 Dose: 1 tab Ondansetron HCl (Ondansetron Hcl 4 Mg/2 Ml Vial) 4 mg IVPUSH Q8H PRN PRN Reason: Nausea and Vomiting Pravastatin Sodium (Pravastatin Sodium 80 Mg Tablet) 80 mg PO BEDTIME [facility] Last Admin: 08/24/24 21:01 Dose: 80 mg Sodium Chloride (0.9 % Sodium Chloride Flush 3 Ml Syringe) 3 ml IVFLUSH QSHIFT [facility] Last Admin: 08/25/24 07:14 Dose: 3 ml Home Medications ?Medication ?Instructions ?Recorded ?Confirmed ?Last Taken ?Type multivitamin (Daily Multi-Vitamin 1 tab PO DAILY 09/12/20 08/22/24 08/19/24 History tablet) pravastatin 80 mg tablet 80 mg PO BEDTIME 09/02/22 08/22/24 08/19/24 History fluticasone furoate 200 1 ea inhalation DAILY 08/22/24 08/22/24 08/19/24 History mcg-vilanterol 25 mcg/dose inhalation powder (Breo Ellipta) umeclidinium 62.5 mcg/actuation 1 inh inhalation DAILY 08/22/24 08/22/24 08/22/24 History blister powder for inhalation (Incruse Ellipta) Physical Exam 2 Vital Signs: Vital Signs: Last Vital Signs Temp 98.8 F 08/25/24 15:07 Pulse 126 H 08/25/24 15:27 Resp 20 08/25/24 15:27 BP 130/70 08/25/24 15:07 Pulse Ox 100 08/25/24 15:07 O2 Del Method Room Air 08/25/24 15:07 O2 Flow Rate 4 08/25/24 12:00 Oxygen Flow Rate 3 08/22/24 15:05 BMI result Body Mass Index 27.8 Neuro: Other: Almost complete left-sided ptosis and moderate right side. Extraocular muscles are intact but he saw double with both eyes open. Face was symmetrical. There was no focal arm or leg weakness. Deep tendon reflexes were absent with flexor plantars. Speech was normal. Affect was normal. Mental status was normal. Results Labs 08/25/24 06:42 08/25/24 06:42 Labs: Short CBC 08/25/24 Range/Units 06:42 WBC 15.3 H (4.8-10.8) X10*3/uL Hgb 13.9 L (14.0-18.0) g/dl Hct 42.7 (42.0-52.0) % Plt Count 234 (160-400) X10*3/uL BMP 08/25/24 06:42 Sodium 145 Potassium 4.2 Chloride 105 Carbon Dioxide 32 H BUN 27 H Creatinine 0.56 Calcium 9.7 Liver Function 08/25/24 Range/Units 06:42 Total Bilirubin 0.3 (0.0-1.0) mg/dL AST 106 H (5-37) U/L ALT 250 H (0-40) U/L Alkaline Phosphatase 100 (39-117) U/L Albumin 3.5 (3.5-5.0) g/dL acetyl choline receptor antibody titers were pending. Head CT revealed moderately severe diffuse cerebral atrophy Microbiology Microbiology Results: Microbiology 08/22/24 16:30 Blood - Venous Blood Culture - Preliminary No growth after 48 hours. 08/22/24 16:30 Blood - Venous Blood Culture - Preliminary No growth after 48 hours. Assessment and Plan (1) Myasthenia gravis: Status: Acute Probably autoimmune neuromuscular disorder, i.e., likely myasthenia gravis. My recommendation is to start him on pyridostigmine 60 mg 3 times a day, start prednisone 40 mg a day, and also course of IVIG 400 milligram/kg per day for 5 days. Procedures Date of Service Date of Service: 08/25/24
[2024-08-25] MEDS: Metoprolol Tartrate 5 MG/5 ML VIAL IVPUSH (17:00)
--- NOTE | 2024-08-25 17:23 | PC.NURSE ---
1700, this RN gave the patient Metoprolol 5mg IVP as Heart rate has consistently been in the high 130's or Sinus Tach. patient has be asymptomatic. Within 5 minutes his HR has come down to 100-112 and BP 15 minutes later was 128/78 with a HR of 101
[2024-08-26] VITALS (9 sets, daily range): BP systolic 111–131; BP diastolic 66–81; PULSE 103–113; RESP 16–20; TEMP 36.1–37.1; O2SAT 93–98
[2024-08-26] MEDS: cefTRIAXone sodium 1 GM VIAL IVPUSH ×2 (00:06→23:26)
[2024-08-26] MEDS: metroNIDAZOLE/NS 500 MG/100 ML PIGGYBACK 100 MG IV ×3 (00:06→23:26)
[2024-08-26] MEDS: 0.9 % Sodium Chloride Flush 3 ML SYRINGE IVFLUSH ×2 (00:07→09:43)
[2024-08-26] MEDS: Melatonin 3 MG TABLET 6 MG PO (00:13)
[2024-08-26] MEDS: Throat Lozenge, Medicated LOZENGE 1 LOZENGE MUCOUS MEM (00:42)
[2024-08-26] MEDS: Enoxaparin Sodium 40 MG/0.4 ML SYRINGE SUBCUT (06:18)
--- NOTE | 2024-08-26 07:00 | CA_ITS ---
Transthoracic Echocardiogram Patient (Last, First, Middle): Jaren Up E Gender: Male Date of : 1945 Age: 79 Procedure Date: 08/26/2024 Procedure Type: Transthoracic Echocardiogram [place] [facility] Height: 180. cm Weight: 90.27 kg BSA: 2.10 m2 Heart Rate: 112 bpm BP: 130 / 70 mmHg Technology Manager: BART Referring MD: Yareli ARREAGA Symptoms: persistent tachycardia Study Quality: Technically Difficult w/Contrast ECG Rhythm: Tachycardia Conclusions: - Technically limited study. - Normal left ventricular cavity size. There is normal left ventricular wall thickness. The left ventricular systolic function is hyperdynamic. The visually estimated ejection fraction is >70%. - Normal right ventricular cavity size and systolic function. - Limited 2-D valvular assessment. Findings Procedure Information Contrast agent, definity, is being given per protocol without apparent complications. Left Ventricle Normal left ventricular cavity size. There is normal left ventricular wall thickness. The left ventricular systolic function is hyperdynamic. The visually estimated ejection fraction is >70%. There is no evidence of regional wall motion abnormalities. Diastolic function is indeterminate on the basis of available data. Right Ventricle Normal right ventricular cavity size and systolic function. Atria The left atrium is normal in size. The right atrium is normal in size. Aortic Valve The aortic valve was not well visualized. There is no aortic valve stenosis. There is no aortic valve regurgitation. Mitral Valve The mitral valve was not well visualized. There is no mitral valve regurgitation. There is no mitral valve stenosis. Pulmonic Valve The pulmonic valve was not well visualized. Tricuspid Valve Likely normal tricuspid valve structure and function. Tricuspid regurgitation envelope is inadequate for calculation of right ventricular systolic pressure. Normal right atrial pressure. Great Vessels All visible segments of the aorta are normal in size. Venous The inferior vena cava is normal in size and collapses greater than 50% with inspiration. Pericardium/Pleural Prominent epicardial adipose tissue noted. There is no evidence of pericardial effusion. Prior Study Comparison No significant change compared to prior study dated: 03/08/2024. Measurements 2D Linear Measurements IVSd: 0.88 0.6-0.9/0.6-1.0 cm LVIDd: 4.18 3.9-5.3/4.2-5.9 cm LVIDd Index: 1.99 2.4-3.2/2.2-3.1 cm/m2 LVIDs: 2.78 2.0-3.6 cm LVPWd: 0.94 0.7-1.1 cm LV Mass: 148.01 67-162/88-224 g LV Mass Index: 70.48 43-95/49-115 g/m2 LVOT Diam: 1.90 3.0+(-)1.3 cm 2D Systolic Function EF 4C: 77.00 >55% EF 2C: 68.80 >55% EF BiP: 74.50 >55% Mitral Valve E'Lateral: 5.22 E'Medial: 5.11 Aortic Valve AoV Pk Pedro: 1.71 AoV Mn Pedro: 1.24 AoV VTI: 0.27 AoV Pk Grad: 12.00 Aov Mn Grad: 7.00 CELIA Cont.VTI: 2.18 LVOT LVOT Pk Pedro: 1.26 LVOT Mn Pedro: 0.81 LVOT VTI: 0.21 LVOT Pk Grad: 6.00 LVOT Mn Grad: 3.00 LVOT Diam: 1.90 LVOT Area: 2.84 Diastolic Function E'Medial: 5.11 E' Laterial: 5.22 Right Ventricle TAPSE (mm): 18.30 TVS' Pedro: 14.60 Tricuspid Valve RA Press: 8.00 Great Vessels Aorta Sinus of Valsalva: 3.80 2.0-3.5 cm Ao Asc: 3.70 2.1-3.4 cm Updated in Other Vendor System with Status of Final Tre Grace MD electronically signed on 08/26/2024 12:28:24 PM with status of Final
[2024-08-26] MEDS: Fluticasone/Vilanterol 200/25 BLST.W.DEV 1 PUFF INHALE (07:32)
[2024-08-26] MEDS: Albuterol/Iprat 2.5/0.5MG 3 ML AMPUL.NEB INHALE ×3 (07:32→19:57)
--- NOTE | 2024-08-26 08:04 | MHC.SLORD ---
Speech Language Pathology Order Status: MBSS is scheduled for 1:00pm today. Radiology to arrange for transport.
[2024-08-26] MEDS: Loratadine 10 MG TABLET PO (08:48)
[2024-08-26] MEDS: Multivitamin TABLET 1 TAB PO (08:50)
--- NOTE | 2024-08-26 10:33 | MHC.CM.PN ---
Per ROUNDS discussion, Patient will be here at least through the weekend (needs IVIG X 5 days & MBS); PT is recommending Inpatient Pulmonary Rehab and Patient has accepting facilities. CM will continue to follow.
[2024-08-26] MEDS: methylPREDNISolone Sod Succ 40 MG/ML VIAL IVPUSH ×2 (12:39→23:26)
[2024-08-26] MEDS: pyRIDostigmine bromide 60 MG TABLET PO ×3 (12:41→22:39)
[2024-08-26] MEDS: Acetaminophen 325 MG TABLET 650 MG PO ×2 (12:43→22:39)
--- NOTE | 2024-08-26 13:20 | P.PNIM_ITS ---
Subjective Subjective Date of Service: 08/26/24 Interval History: seen and examined this morning having echo done b/l ptosis still present Review of Systems Review of Systems: Yes all other systems are reviewed and are negative Constitutional Constitutional: Denies chills and Denies fever(s) Cardiovascular Cardiovascular: Denies chest pain and Denies palpitations Respiratory Respiratory: Reports cough Endocrine Endocrine: Denies palpitations Physical Exam 2 Vital Signs: Vital Signs: Last Vital Signs Temp 98.7 F 08/26/24 11:21 Pulse 103 H 08/26/24 11:21 Resp 20 08/26/24 11:21 BP 128/70 08/26/24 11:21 Pulse Ox 95 08/26/24 11:21 O2 Del Method Nasal Cannula 08/26/24 11:21 O2 Flow Rate 2 08/26/24 11:21 Oxygen Flow Rate 3 08/22/24 15:05 BMI result Body Mass Index 27.8 Const: General: cooperative, comfortable, alert and awake Nutritional Appearance: average body habitus Orientation/consciousness: patient oriented x3 Eyes: Other: b/l ptosis Resp: Effort & Inspection: normal respiratory effort, able to speak in complete sentences, no respiratory distress and no use of accessory muscles Cardio: Rate: tachycardic Neuro: General: patient oriented x3 Objective Data Active Medications Acetaminophen (Acetaminophen 325 Mg Tablet) 650 mg PO Q6H PRN PRN Reason: Pain, Mild 1-3,fever,headache Acetaminophen (Acetaminophen 325 Mg Tablet) 650 mg PO DAILY@1230 [facility] Stop: 08/30/24 12:31 Last Admin: 08/26/24 12:43 Dose: 650 mg Documented By: XENIA Albuterol/Ipratropium (Albuterol/Iprat 2.5/0.5mg 3 Ml Ampul.Neb) 3 ml INHALE RQ6H WHILE AWAKE [facility] Last Admin: 08/26/24 07:32 Dose: 3 ml Documented By: SONAY Benzocaine (Throat Lozenge, Medicated Lozenge) 1 lozenge MUCOUS MEM Q2H PRN PRN Reason: Sore Throat Last Admin: 08/26/24 00:42 Dose: 1 lozenge Documented By: HANNAH Calcium Carbonate (Calcium Carbonate 750 Mg Tab.Chew) 750 mg PO Q4H PRN PRN Reason: Heartburn Ceftriaxone Sodium (Ceftriaxone Sodium 1 Gm Vial) 1 gm IVPUSH Q24H [facility] Last Admin: 08/26/24 00:06 Dose: 1 gm Documented By: HANNAH Enoxaparin Sodium (Enoxaparin Sodium 40 Mg/0.4 Ml Syringe) 40 mg SUBCUT Q24H [facility] Last Admin: 08/26/24 06:18 Dose: 40 mg Documented By: HANNAH Fluticasone/Vilanterol (Fluticasone/Vilanterol 200/25 Blst.W.Dev) 1 puff INHALE RDAILY [facility] Last Admin: 08/26/24 07:32 Dose: 1 puff Documented By: SONYA Metronidazole (Flagyl) 500 mg in 100 mls @ 100 mls/hr IV Q8H [facility] Last Infusion: 08/26/24 11:31 Dose: Infused Documented By: ROSIE Immune Globulin (Gammagard 10%) 30 gm in 300 mls @ 43.392 mls/hr IV DAILY@1430 [facility] Stop: 08/30/24 21:25 Immune Globulin (Gammagard 10%) 5 gm in 50 mls @ 43.392 mls/hr IV DAILY@1300 [facility] Stop: 08/30/24 14:10 Loratadine (Loratadine 10 Mg Tablet) 10 mg PO DAILY [facility] Last Admin: 08/26/24 08:48 Dose: 10 mg Documented By: ROSIE Magnesium Hydroxide (Milk Of Magnesia 30 Ml Oral.Susp) 30 ml PO DAILY PRN PRN Reason: Constipation Melatonin (Melatonin 3 Mg Tablet) 6 mg PO BEDTIME PRN PRN Reason: Insomnia Last Admin: 08/26/24 00:13 Dose: 6 mg Documented By: HANNAH Methylprednisolone Sodium Succinate (Methylprednisolone Sod Succ 40 Mg/Ml Vial) 40 mg IVPUSH Q12H [facility] Last Admin: 08/26/24 12:39 Dose: 40 mg Documented By: XENIA Metoprolol Tartrate (Metoprolol Tartrate 5 Mg/5 Ml Vial) 5 mg IVPUSH Q6H PRN; Protocol PRN Reason: Heart Rate >100 Last Admin: 08/25/24 17:00 Dose: 5 mg Documented By: JAC Multivitamins/Vitamin C (Multivitamin Tablet) 1 tab PO DAILY [facility] Last Admin: 08/26/24 08:50 Dose: 1 tab Documented By: ROSIE Ondansetron HCl (Ondansetron Hcl 4 Mg/2 Ml Vial) 4 mg IVPUSH Q8H PRN PRN Reason: Nausea and Vomiting Pravastatin Sodium (Pravastatin Sodium 80 Mg Tablet) 80 mg PO BEDTIME [facility] Last Admin: 08/24/24 21:01 Dose: 80 mg Documented By: ABDIEL Pyridostigmine Shickley (Pyridostigmine Shickley 60 Mg Tablet) 60 mg PO TID [facility] Last Admin: 08/26/24 12:41 Dose: 60 mg Documented By: XENIA Sodium Chloride (0.9 % Sodium Chloride Flush 3 Ml Syringe) 3 ml IVFLUSH QSHIFT [facility] Last Admin: 08/26/24 09:43 Dose: 3 ml Documented By: ROSIE Labs 08/25/24 06:42 08/25/24 06:42 Labs: Laboratory Results - last 24 hr 08/25/24 06:42 TSH 1.38 Assessment and Plan (1) Myasthenia gravis: Status: Acute (2) Elevated LFTs: Status: Acute (3) Aspiration pneumonia: Status: Acute (4) Sepsis: Status: Acute (5) Tachycardia: Status: Acute Plan 79-year-old male with a past medical history significant for 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 Sepsis with acute hypoxic respiratory failure secondary to aspiration pneumonia and acute COPD exacerbation chest CTA negative for central or large proximal pulmonary emboli. Severe bullous emphysematous changes, with possible superimposed aspiration or pneumonia in the right lower lobe. 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 Ramesh Cole at [facility] will need follow up after discharge Elevated LFTs Trending down ?secondary to sepsis. check cpk hold statin for now Elevated troponin 539, 491, 185. no chest pain, likely due to demand. rule out myocarditis in setting of treatment with ICI for cancer and elevated cardiac enzymes echocardiogram ordered cardiology consult pending HLD/CAD hold satin due to above DNR/DNI VTE prophylaxis: Lovenox Requires ongoing inpatient hospital stay for further evaluation of ptosis, treatment of respiratory failure, tachycardia and elevated cardiac enzymes requiring further workup Quality Stroke Does the patient have a stroke diagnosis?: No VTE Prior VTE?: No VTE Risk Level:: Medical - moderate - high VTE Device Contraindication: Treatment Not Indicated VTE Drug Contraindication: N/A - Med Ordered
[2024-08-26] MEDS: Immune Globulin 10% Gammagard 5 GM/50 ML VIAL IV (13:35)
[2024-08-26] MEDS: Immune Globulin 10% Gammagard 30 GM/300 ML VIAL IV (14:37)
--- NOTE | 2024-08-26 14:54 | MHC.SL.IMP ---
Date of Plan of Treatment: 08/26/24 Onset of Symptoms/Illness: 08/20/24 Date Treatment Started: 08/23/24 Admitting Diagnosis: (1) Elevated LFTs: Status: Acute (2) Aspiration pneumonia: Status: Acute (3) Elevated troponin: Status: Acute (4) Tachycardia: Status: Acute Primary Speech & Language Diagnosis: R13.12 Oropharyngeal Phase Dysphagia Reason for Today's Visit: 76143 Modified Barium Swallow Study Pre-evaluation Dietary Consistencies: Grnd/Mech Altered (NDD2) Pre-evaluation Liquid Consistency: [place] Thick Pre-evaluation Medication Administration: Crushed with Puree Medical History: Modified Barium Swallow Study Fluoroscopic Evaluation of Swallowing Function CPT Code 50866 Evaluation Year: 2024 Reason for Study: Difficulty swallowing Referring Physician: Yareli ARREAGA Evaluating Clinician: Kamila Armstrong MA, CCC-MANAGER STRATEGIC DEVELOPMENT Study Number: 1 Patient Name: Jaren Up Status: Inpatient, Wheelchair Age: 79 Sex: Male Medical History Medical History Former tobacco use Basal cell carcinoma Testicular cancer Elevated cholesterol DVT (deep venous thrombosis) Cancer COPD (chronic obstructive pulmonary disease) Surgical History History of orchiectomy Hx of spinal fusion History of bronchoscopy History of laryngoscopy H/O colonoscopy Hx of surgical procedure (05/05/24) History of arthroscopy of left knee History of total replacement of both hip joints Current (pre-evaluation) Intake/Diet: Route: PO Diet Grade: Mechanical Soft Liquid Consistencies: [place] Pre-Study Functional Oral Intake Scale (FOIS): 5- Total oral intake of multiple consistencies requiring special preparation Pain: None reported at time of study SUBJECTIVE: Patient is a 79 year old male with lung cancer w/ mets to bone s/p chemo and pending immunotherapy, admitted with sepsis with acute hypoxic respiratory failure secondary to aspiration pneumonia and acute COPD exacerbation. Chest CTA showing, ?severe bullous emphysematous changes, with possible superimposed aspiration or pneumonia in the right lower lobe.? Patient was reportedly coughing and choking when drinking liquids, also reports changes to his voice. Food and Liquid Trials: Oral Impairment: Lip Closure: 1=Interlabial escape; no progression to anterior tip Oral Impairment: Tongue Control During Bolus Hold: 2=Posterior escape of less than half of bolus Oral Impairment: Bolus Preparation/Mastication: 3=Minimal chewing/mashing with majority of bolus unchewed Oral Impairment: Bolus Transport/Lingual Motion: 3=Repetitive/disorganized tongue motion Oral Impairment: Oral Residue: 2=Residue collection on oral structures Oral Impairment:Initiation of Pharyngeal Swallow: 2=Bolus head at posterior laryngeal surface of epiglottis Pharyngeal Impairment: Soft Palate Elevation: 1=Trace column of contrast or air between SP and PW Pharyngeal Impairment: Laryngeal Elevation: 1=Partial thyroid cartilage/arytenoids to epiglottic petiole movement Pharyngeal Impairment: Anterior Hyoid Excursion: 1=Partial anterior movement Pharyngeal Impairment: Epiglottic Movement: 2=No inversion Pharyngeal Impairment: Laryngeal Vestibular Closure:: 1=Incomplete: narrow column air/contrast in laryngeal vestibule Pharyngeal Impairment: Pharyngeal Stripping Wave: 1=Present: diminished Pharyngeal Impairment: Pharyngeal Contraction: Did not test Pharyngeal Impairment: Pharyngoesophageal Segment Opening: Did not test Pharyngeal Impairment: Tongue Base (TB) Retraction: 2=Narrow column of contrast/air between TB and posterior PW Pharyngeal Impairment: Pharyngeal Residue: 4=Minimal to no pharyngeal clearance Pharyngeal Impairment: Esophageal Clearance Upright Position: Did not test Impressions and Recommendations OBJECTIVE: Time-out: performed at 13:20 Evaluation Start: 13:00; Stop: 13:10 Patient Positioning: Seated 70-90 degrees Viewing Planes: LATERAL ONLY Contrast: MBSImP? Standardized Protocol using commercially prepared, standardized Barium viscosities, including: Varibar? THIN LIQUID (40% w/v, <15 cps) , Varibar? NECTAR (40% w/v, <150-450 cps) , Varibar? THIN HONEY (40% w/v, <800-1800 cps) , Varibar? PUDDING (40% w/v, <1084-8790 cps) MBSImP ID: [id number] MBSImP Results: Lip closure for intraoral bolus containment resulted in interlabial escape, without progression to the anterior lip. Tongue control during bolus hold resulted in posterior escape of less than half of the bolus. Bolus preparation and mastication was only minimal chewing/mashing, with the majority of the bolus unchewed. Bolus transport/lingual motion was with repetitive/disorganized motion of the tongue. Oral residue was a collection on oral structures. Initiation of the pharyngeal swallow occurred as the bolus head was at the posterior laryngeal surface of the epiglottis. Soft palate elevation allowed a trace column of contrast or air between the soft palate and the pharyngeal wall. Laryngeal elevation was decreased, with partial superior movement of the thyroid cartilage/partial approximation of the arytenoids to the epiglottic petiole. Anterior hyoid excursion demonstrated partial anterior movement. Epiglottic movement resulted in no inversion. Laryngeal vestibular closure was incomplete, with a narrow column of air/contrast noted within the laryngeal vestibule at the height of the swallow. Pharyngeal stripping wave was present, but diminished. Pharyngeal contraction could not be determined due to logistical reasons not related to physiologic impairment. Pharyngoesophageal segment opening could not be assessed due to logistical reasons not related to physiologic impairment. Tongue base retraction allowed a narrow column of contrast or air between the retracted tongue base and the posterior pharyngeal wall. Pharyngeal residue resulted from minimal to no pharyngeal clearance. Esophageal clearance in the upright position could not be assessed due to logistical reasons not related to physiologic impairment. Oral Impairment Score: 12 Pharyngeal Impairment Score: 13 (absence of score, component 13component 14) Esophageal Impairment Score: --- (absence of score, component 17) Laryngeal Penetration and Aspiration: Neither penetration nor aspiration was observed in today's study with Pudding-thick. Both Penetration and Aspiration were observed in today's study. Honey-thick Contrast entered the airway, remained above the vocal folds, and was ejected from the airway. [place]-thick Contrast entered the airway, contacted the vocal folds, and was ejected from the airway. [place]-thick Contrast entered the airway, contacted the vocal folds, and was not ejected from the airway. Thin Contrast entered the airway, passed below the vocal folds, and no effort was made to eject. ASSESSMENT: When brought into the exam room in Radiology, patient began coughing into a towel and expectorated what appeared to be ground up meat, with patient stating it was the meatloaf he ate for lunch. Patient did not appear to be in any distress and agreed to proceed with this exam. MBSS was performed by the radiologist and the speech pathologist. Patient was seated upright at 90 degrees in a wheelchair for lateral view only. He was able to feed himself and trialed the following consistencies: thin (individual cup sips), nectar thick (individual cup sips), honey thick (individual cup sips), puree, and ground. There was contrast escaping between the lips, but remained in the oral cavity and did not spill to the chin. Poor tongue control with premature posterior escape. Minimal mastication on soft solids, with patient using tongue force to somewhat mash the bolus. Brief period of tongue pumping delayed initiation of the pharyngeal swallow. There was minimal residue coating the tongue and palate and pooling to the floor of mouth on trials of both solid and liquids. There was also a trace amount of contrast escaping to the juncture between the soft palate and the pharyngeal wall, but no escape to the nasal cavity. Epiglottis was fixed in retroflexed position, with no inversion. Partial laryngeal elevation and incomplete laryngeal vestibular closure. There was silent aspiration during the swallow on thin liquid. Patient did not elicit a spontaneous throat clear or cough. Patient stated he ?did not feel anything in [his] airway.? There was penetration to the vocal folds on trials of nectar thick liquid. Patient was cued to clear his throat, which reduced, but did not entirely clear contrast from the laryngeal vestibule. When clearing his throat, patient also expectorated contrast, which appeared to have some ground up meat mixed in. Trace penetration above the vocal folds on trials of honey thick liquid, which cleared on cued throat clear. No aspiration or penetration on trials of puree. There was moderate pooling mostly in the pyriforms, but also in the valleculae, with residue coating on the tongue base and on the posterior pharyngeal wall on trials of liquids. Mild to moderate residue with trials of puree, mostly in the pyriforms, reduced with dry swallows. Significant retention seen on trial of ground solid, mostly in the pyriforms. Patient stated he was ?unable to swallow again.? Patient attempted to clear his throat and expectorate bolus, but was unable to. The following compensatory strategies have not been used until today's study, but when employed, improved swallowing function: Bolus Volume Change decreased Penetration, Oral Residue, Pharyngeal Residue Additional Swallow(s) per Bolus decreased Oral Residue, Pharyngeal Residue Liquid Intake Recommendation: Honey Thick Liquid Intake Strategies: Small Sips, No Straws, Double Swallow Dietary Recommendations: Pureed (NDD1) Medication Administration: Crushed with Puree Please contact the pharmacy regarding appropriate crushable or liquid drug formulations that are available whenever modified delivery is recommended. Compensatory Strategies Recommended: Sitting Upright (90 deg), Double Swallow, No Straw, Small Bites and Sips, Rate of Ingestion Change Supervision during eating and or drinking: Direct Supervision (1:1) Recommended Treatments: Compens. Strategy Educat. Recommendation for Speech Therapy: Inpatient Speech Therapy Speech Therapy through Rehab Facility Text Comment: Intake Recommendations: Route: PO Diet Grade: Puree Liquid Consistencies: Honey Post-Study Functional Oral Intake Scale (FOIS): 5- Total oral intake of multiple consistencies requiring special preparation Patient presents with severe oropharyngeal dysphagia, characterized by minimal mastication, maladaptive tongue pumping movement, delayed pharyngeal swallow trigger, absent epiglottic inversion and incomplete laryngeal vestibular closure. Silent aspiration seen on trial of thin liquid. Penetration to the vocal folds on trial of nectar thick, which patient partially cleared on cued throat clear. Penetration seen above the vocal folds with honey thick liquid, which was eliminated on cued throat clearing. Mild to moderate pharyngeal retention on liquids and semi-solids, which decreased with multiple dry swallows. Patient was not able to clear significant retention in the pyriforms on ground solid. Also note patient expectorating ground meat prior to the exam and on one trial during the exam. Recommend DOWNGRADE to PUREED (NDD1) solids and HONEY THICK liquids, pills CRUSHED in PUREE. Patient is able to feed himself, but is recommended direct supervision to monitor progression through meal and provide cues as needed for safe feeding strategies: -take small bites -1-2 dry swallows after each bite -liquids by teaspoon or controlled cup sip -take one sip at a time -follow each sip with throat clear & 1-2 dry swallows -avoid the use of straws -maintain upright 90 degree position during PO intake and for at least 30 minutes afterwards Therapy Recommendations: Recommend continued speech therapy during inpatient stay and at the next level of care for the treatment of dysphagia. Patient is recommended to continue on recommended modified diet after discharge. The following compensatory strategies and/or therapeutic exercises will be part of the upcoming therapy/management plan: Bolus Volume Change Additional Swallow(s) per Bolus Clinical Exercise Physiologist Goals: ? The patient will tolerate the least restrictive diet with a safe/efficient swallow to maintain adequate nutrition and hydration. ? The patient and/or family will participate in further education for swallowing goals. Short Term Goals: ? Diet - The patient will tolerate a pureed diet with honey thick liquids without signs or symptoms of penetration/aspiration 100% of the time. - The patient will participate in therapeutic PO trials with the MANAGER STRATEGIC DEVELOPMENT. ? Guidelines - The patient will comply with/recall the following guidelines/strategies 100% of the time with minimal cuing: Honey-thick Liquid, Bolus Volume Change, Rate of Ingestion Change, Additional Swallow(s) per Bolus, Throat Clear, No Straws. ? Education - The patient, family, caregiver, nurse will verbalize/demonstrate understanding of the results of this evaluation, the above recommendations, and the swallowing guidelines. Frequency/Duration: M-F while inpatient Date Range for Service Requested: Timeline to reassess: PRN Clinician - Supplemental, Miscellaneous Communication: It is important to note MBSS objective studies are snapshots in time and Patient function might vary with factors such as time of day or concomitant medical conditions. For this reason, the final treatment plan for this patient should rest with their medical care team. Additional recommendations should be considered with the totality of the Patient in mind. Thank for the opportunity to participate in the care of this patient. If you have any questions about the content of this report, please contact the [facility] at [facility]. Education: Education regarding findings from today's study and plans for therapy were provided to Patient only through Verbal Instruction. Understanding was expressed by the Patient only. [employer] Clinician/Clinical Fellow: No Supervisory Statement: N/A Speech Language Pathologist: Kamila Armstrong M.A., [facility]-MANAGER STRATEGIC DEVELOPMENT
--- NOTE | 2024-08-26 19:59 | PC.RT ---
Pt refusing NIF and VC; educated pt on reasons for baseline results. Pt states they exhausted and they don't want to do it. RN aware
[2024-08-26] MEDS: diphenhydrAMINE HCL 50 MG/ML VIAL IVPUSH (22:39)
[2024-08-27] VITALS (9 sets, daily range): BP systolic 118–131; BP diastolic 68–81; PULSE 100–122; RESP 18–20; TEMP 36.4–37; O2SAT 92–100
[2024-08-27] MEDS: metroNIDAZOLE/NS 500 MG/100 ML PIGGYBACK 100 MG IV ×3 (07:08→21:05)
[2024-08-27] MEDS: Enoxaparin Sodium 40 MG/0.4 ML SYRINGE SUBCUT (07:10)
[2024-08-27] MEDS: 0.9 % Sodium Chloride Flush 3 ML SYRINGE IVFLUSH ×2 (07:14→21:11)
[2024-08-27] MEDS: Fluticasone/Vilanterol 200/25 BLST.W.DEV 1 PUFF INHALE (07:30)
[2024-08-27] MEDS: Albuterol/Iprat 2.5/0.5MG 3 ML AMPUL.NEB INHALE ×3 (07:36→18:53)
[2024-08-27] MEDS: Multivitamin TABLET 1 TAB PO (09:49)
[2024-08-27] MEDS: pyRIDostigmine bromide 60 MG TABLET PO ×3 (09:49→21:07)
[2024-08-27] MEDS: Loratadine 10 MG TABLET PO (09:49)
--- NOTE | 2024-08-27 11:19 | P.PNIM_ITS ---
Subjective Subjective Date of Service: 08/27/24 Interval History: seen and examined this morning b/l ptosis still present Review of Systems Review of Systems: Yes all other systems are reviewed and are negative Constitutional Constitutional: Denies chills and Denies fever(s) Cardiovascular Cardiovascular: Denies chest pain and Denies palpitations Respiratory Respiratory: Reports cough Endocrine Endocrine: Denies palpitations Physical Exam 2 Vital Signs: Vital Signs: Last Vital Signs Temp 97.9 F 08/27/24 07:56 Pulse 116 H 08/27/24 07:56 Resp 20 08/27/24 07:56 BP 118/69 08/27/24 07:56 Pulse Ox 98 08/27/24 07:56 O2 Del Method Nasal Cannula 08/27/24 07:56 O2 Flow Rate 3 08/27/24 07:56 Oxygen Flow Rate 3 08/22/24 15:05 BMI result Body Mass Index 27.8 Appearing in no acute distress lung sounds are clear to auscultation heart regular rate rhythm, clear S1, S2 positive bowel sounds, abdomen is soft, nontender neuro patient is alert x3, no focal deficits Objective Data Active Medications Acetaminophen (Acetaminophen 325 Mg Tablet) 650 mg PO Q6H PRN PRN Reason: Pain, Mild 1-3,fever,headache Last Admin: 08/26/24 22:39 Dose: 650 mg Documented By: HANNAH Acetaminophen (Acetaminophen 325 Mg Tablet) 650 mg PO DAILY@1230 [facility] Stop: 08/30/24 12:31 Last Admin: 08/26/24 12:43 Dose: 650 mg Documented By: GILDARDOTEKJan Albuterol/Ipratropium (Albuterol/Iprat 2.5/0.5mg 3 Ml Ampul.Neb) 3 ml INHALE RQ6H WHILE AWAKE [facility] Last Admin: 08/27/24 07:36 Dose: 3 ml Documented By: GUY Benzocaine (Throat Lozenge, Medicated Lozenge) 1 lozenge MUCOUS MEM Q2H PRN PRN Reason: Sore Throat Last Admin: 08/26/24 00:42 Dose: 1 lozenge Documented By: HANNAH Calcium Carbonate (Calcium Carbonate 750 Mg Tab.Chew) 750 mg PO Q4H PRN PRN Reason: Heartburn Ceftriaxone Sodium (Ceftriaxone Sodium 1 Gm Vial) 1 gm IVPUSH Q24H [facility] Last Admin: 08/26/24 23:26 Dose: 1 gm Documented By: KENTRELL Enoxaparin Sodium (Enoxaparin Sodium 40 Mg/0.4 Ml Syringe) 40 mg SUBCUT Q24H [facility] Last Admin: 08/27/24 07:10 Dose: 40 mg Documented By: HANNAH Fluticasone/Vilanterol (Fluticasone/Vilanterol 200/25 Blst.W.Dev) 1 puff INHALE RDAILY [facility] Last Admin: 08/27/24 07:30 Dose: 1 puff Documented By: GUY Immune Globulin (Gammagard 10%) 30 gm in 300 mls @ 43.392 mls/hr IV DAILY@1430 [facility] Stop: 08/30/24 21:25 Last Infusion: 08/27/24 03:23 Dose: Infused Documented By: HANNAH Immune Globulin (Gammagard 10%) 5 gm in 50 mls @ 43.392 mls/hr IV DAILY@1300 [facility] Stop: 08/30/24 14:10 Last Infusion: 08/26/24 14:38 Dose: Infused Documented By: XENIA Metronidazole (Flagyl) 500 mg in 100 mls @ 100 mls/hr IV Q8H [facility] Last Infusion: 08/27/24 09:57 Dose: Infused Documented By: XENIA Loratadine (Loratadine 10 Mg Tablet) 10 mg PO DAILY [facility] Last Admin: 08/27/24 09:49 Dose: 10 mg Documented By: XENIA Magnesium Hydroxide (Milk Of Magnesia 30 Ml Oral.Susp) 30 ml PO DAILY PRN PRN Reason: Constipation Melatonin (Melatonin 3 Mg Tablet) 6 mg PO BEDTIME PRN PRN Reason: Insomnia Last Admin: 08/26/24 00:13 Dose: 6 mg Documented By: HANNAH Methylprednisolone Sodium Succinate (Methylprednisolone Sod Succ 40 Mg/Ml Vial) 40 mg IVPUSH Q12H [facility] Last Admin: 08/26/24 23:26 Dose: 40 mg Documented By: KENTRELL Metoprolol Tartrate (Metoprolol Tartrate 5 Mg/5 Ml Vial) 5 mg IVPUSH Q6H PRN; Protocol PRN Reason: Heart Rate >100 Last Admin: 08/25/24 17:00 Dose: 5 mg Documented By: JAC Multivitamins/Vitamin C (Multivitamin Tablet) 1 tab PO DAILY [facility] Last Admin: 08/27/24 09:49 Dose: 1 tab Documented By: XENIA Ondansetron HCl (Ondansetron Hcl 4 Mg/2 Ml Vial) 4 mg IVPUSH Q8H PRN PRN Reason: Nausea and Vomiting Pravastatin Sodium (Pravastatin Sodium 80 Mg Tablet) 80 mg PO BEDTIME [facility] Last Admin: 08/24/24 21:01 Dose: 80 mg Documented By: ABDIEL Pyridostigmine [place] (Pyridostigmine [place] 60 Mg Tablet) 60 mg PO TID [facility] Last Admin: 08/27/24 09:49 Dose: 60 mg Documented By: XENIA Sodium Chloride (0.9 % Sodium Chloride Flush 3 Ml Syringe) 3 ml IVFLUSH QSHIFT [facility] Last Admin: 08/27/24 09:49 Dose: Not Given Documented By: XENIA Non-Admin Reason: IV Running Labs 08/25/24 06:42 08/25/24 06:42 Labs: Laboratory Results - last 24 hr 08/26/24 14:12 Total Creatine Kinase 532 H Assessment and Plan (1) Myasthenia gravis: Status: Acute (2) Elevated LFTs: Status: Acute (3) Aspiration pneumonia: Status: Acute (4) Sepsis: Status: Acute (5) Tachycardia: Status: Acute Plan 79-year-old male with a past medical history significant for 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 no need to transfer to [facility] Neuro following >rec to start pyridostigmine 60 TID and IVIG x 5 days Sepsis with acute hypoxic respiratory failure secondary to aspiration pneumonia and acute COPD exacerbation chest CTA negative for central or large proximal pulmonary emboli. Severe bullous emphysematous changes, with possible superimposed aspiration or pneumonia in the right lower lobe. 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 Ramesh Cole at [facility] will need follow up after discharge Elevated LFTs Trending down ?secondary to sepsis. cpk 532 hold statin for now Elevated troponin 539, 491, 185. no chest pain, likely due to demand. rule out myocarditis in setting of treatment with ICI for cancer and elevated cardiac enzymes echocardiogram ordered cardiology consult pending HLD/CAD hold satin due to above DNR/DNI VTE prophylaxis: Lovenox Requires ongoing inpatient hospital stay for further evaluation of ptosis, treatment of respiratory failure, tachycardia and elevated cardiac enzymes requiring further workup Quality Stroke Does the patient have a stroke diagnosis?: No VTE Prior VTE?: No VTE Risk Level:: Medical - moderate - high VTE Device Contraindication: Treatment Not Indicated VTE Drug Contraindication: N/A - Med Ordered
--- NOTE | 2024-08-27 11:58 | PM.CNCAR ---
History of Present Illness History of Present Illness Date of Service: 08/27/24 Requesting physician: Carleen Montano Chief complaint: dyspnea Narrative: 79-year-old gentleman with lung cancer on chemotherapy presenting with shortness of breath. We have been asked to assess him for mildly elevated troponin levels. He is on chemotherapy currently. He is unable to talk in full sentences due to significant shortness of breath. He is on supplemental oxygen. He was a heavy smoker and has background of COPD. Denying any chest discomfort. He also has myasthenia gravis. Labs, imaging and EKGs reviewed. [facility] Past Medical History Medical History Former tobacco use Basal cell carcinoma Testicular cancer Elevated cholesterol DVT (deep venous thrombosis) Cancer COPD (chronic obstructive pulmonary disease) Surgical History Surgical History History of orchiectomy Hx of spinal fusion History of bronchoscopy History of laryngoscopy H/O colonoscopy Hx of surgical procedure (05/05/24) History of arthroscopy of left knee History of total replacement of both hip joints Social History Social History Household Members: None Housing: House Are you a primary health care attorney to a significant other at home: No Do you presently have visiting nurse or other home services: No Alcohol intake: current Alcohol intake frequency: a few times a month Alcohol type: beer Patient Tobacco Use Status: Former Tobacco user Tobacco use type: Cigarette Years Smoked: 43 service: No Meds Allergies Allergy/AdvReac Type Severity Reaction Status Date / Time Penicillins [PENICILLINS] Allergy Severe Facial Verified 08/22/24 15:09 Swelling Sulfa (Sulfonamide Allergy Severe Facial Verified 08/22/24 15:09 Antibiotics) Swelling [Sulfa (Sulfonamides)] isoniazid Allergy Intermediate Hives Verified 08/22/24 15:09 Active Medications: Current Medications Acetaminophen (Acetaminophen 325 Mg Tablet) 650 mg PO Q6H PRN PRN Reason: Pain, Mild 1-3,fever,headache Last Admin: 08/26/24 22:39 Dose: 650 mg Acetaminophen (Acetaminophen 325 Mg Tablet) 650 mg PO DAILY@1230 [facility] Stop: 08/30/24 12:31 Last Admin: 08/26/24 12:43 Dose: 650 mg Albuterol/Ipratropium (Albuterol/Iprat 2.5/0.5mg 3 Ml Ampul.Neb) 3 ml INHALE RQ6H WHILE AWAKE [facility] Last Admin: 08/27/24 07:36 Dose: 3 ml Benzocaine (Throat Lozenge, Medicated Lozenge) 1 lozenge MUCOUS MEM Q2H PRN PRN Reason: Sore Throat Last Admin: 08/26/24 00:42 Dose: 1 lozenge Calcium Carbonate (Calcium Carbonate 750 Mg Tab.Chew) 750 mg PO Q4H PRN PRN Reason: Heartburn Ceftriaxone Sodium (Ceftriaxone Sodium 1 Gm Vial) 1 gm IVPUSH Q24H [facility] Last Admin: 08/26/24 23:26 Dose: 1 gm Diphenhydramine HCl (Diphenhydramine Hcl 50 Mg/Ml Vial) 25 mg IVPUSH Q6H PRN PRN Reason: allergy Enoxaparin Sodium (Enoxaparin Sodium 40 Mg/0.4 Ml Syringe) 40 mg SUBCUT Q24H [facility] Last Admin: 08/27/24 07:10 Dose: 40 mg Fluticasone/Vilanterol (Fluticasone/Vilanterol 200/25 Blst.W.Dev) 1 puff INHALE RDAILY [facility] Last Admin: 08/27/24 07:30 Dose: 1 puff Immune Globulin (Gammagard 10%) 30 gm in 300 mls @ 43.392 mls/hr IV DAILY@1430 [facility] Stop: 08/30/24 21:25 Last Infusion: 08/27/24 03:23 Dose: Infused Immune Globulin (Gammagard 10%) 5 gm in 50 mls @ 43.392 mls/hr IV DAILY@1300 [facility] Stop: 08/30/24 14:10 Last Infusion: 08/26/24 14:38 Dose: Infused Metronidazole (Flagyl) 500 mg in 100 mls @ 100 mls/hr IV Q8H [facility] Last Infusion: 08/27/24 09:57 Dose: Infused Loratadine (Loratadine 10 Mg Tablet) 10 mg PO DAILY [facility] Last Admin: 08/27/24 09:49 Dose: 10 mg Magnesium Hydroxide (Milk Of Magnesia 30 Ml Oral.Susp) 30 ml PO DAILY PRN PRN Reason: Constipation Melatonin (Melatonin 3 Mg Tablet) 6 mg PO BEDTIME PRN PRN Reason: Insomnia Last Admin: 08/26/24 00:13 Dose: 6 mg Methylprednisolone Sodium Succinate (Methylprednisolone Sod Succ 40 Mg/Ml Vial) 40 mg IVPUSH Q12H [facility] Last Admin: 08/26/24 23:26 Dose: 40 mg Metoprolol Tartrate (Metoprolol Tartrate 5 Mg/5 Ml Vial) 5 mg IVPUSH Q6H PRN; Protocol PRN Reason: Heart Rate >100 Last Admin: 08/25/24 17:00 Dose: 5 mg Multivitamins/Vitamin C (Multivitamin Tablet) 1 tab PO DAILY [facility] Last Admin: 08/27/24 09:49 Dose: 1 tab Ondansetron HCl (Ondansetron Hcl 4 Mg/2 Ml Vial) 4 mg IVPUSH Q8H PRN PRN Reason: Nausea and Vomiting Pravastatin Sodium (Pravastatin Sodium 80 Mg Tablet) 80 mg PO BEDTIME [facility] Last Admin: 08/24/24 21:01 Dose: 80 mg Pyridostigmine [place] (Pyridostigmine [place] 60 Mg Tablet) 60 mg PO TID [facility] Last Admin: 08/27/24 09:49 Dose: 60 mg Sodium Chloride (0.9 % Sodium Chloride Flush 3 Ml Syringe) 3 ml IVFLUSH QSHIFT [facility] Last Admin: 08/27/24 09:49 Dose: Not Given Home Medications ?Medication ?Instructions ?Recorded ?Confirmed ?Last Taken ?Type multivitamin (Daily Multi-Vitamin 1 tab PO DAILY 09/12/20 08/22/24 08/19/24 History tablet) pravastatin 80 mg tablet 80 mg PO BEDTIME 09/02/22 08/22/24 08/19/24 History fluticasone furoate 200 1 ea inhalation DAILY 08/22/24 08/22/24 08/19/24 History mcg-vilanterol 25 mcg/dose inhalation powder (Breo Ellipta) umeclidinium 62.5 mcg/actuation 1 inh inhalation DAILY 08/22/24 08/22/24 08/22/24 History blister powder for inhalation (Incruse Ellipta) Physical Exam Vital Signs: Vital Signs: Last Vital Signs Temp 97.6 F 08/27/24 11:46 Pulse 110 H 08/27/24 11:46 Resp 20 08/27/24 11:46 BP 122/73 08/27/24 11:46 Pulse Ox 97 05/24/25 11:46 O2 Del Method Nasal Cannula 08/27/24 11:46 O2 Flow Rate 3 08/27/24 11:46 Oxygen Flow Rate 3 08/22/24 15:05 BMI result Body Mass Index 27.8 GENERAL APPEARANCE: Short of breath. Unable to speak in full sentences. On supplemental oxygen. NECK: no carotid bruit, no jugular venous distention. SKIN: no suspicious lesions, warm and dry. HEART: no murmurs, regular rate and rhythm. LUNGS: Diminished breath sounds bilaterally. ABDOMEN: soft, nontender. EXTREMITIES: no edema. PERIPHERAL PULSES: equal. NEUROLOGIC: No gross deficits, AAO X 3 Objective Labs and Meds 08/25/24 06:42 08/25/24 06:42 Lab results: Laboratory Results - last 24 hr 08/26/24 14:12 Total Creatine Kinase 532 H Imaging Radiologist's impression: Impressions Modified Barium Swallow 08/26/24 13:00 IMPRESSION: 1. Silent aspiration on thin liquids. See above. Refer to the speech therapy report for further clarification Electronically signed by: Felix Calloway MD 08/26/2024 02:01 PM EDT Assessment and Plan (1) Elevated troponin: Status: Acute Plan Mild elevation of troponin in his 79 year gentleman with lung cancer on chemotherapy. This is a type 2 elevation and does not appear to be a good coronary syndrome. Clinically not in heart failure. Dyspnea is due to COPD myasthenia gravis and lung cancer unfortunately. He also has potential aspiration pneumonia and is on antibiotics. No further workup is required for mildly elevated troponin levels. Supportive care as you are doing. Signing off. Thank you for allowing me to participate in the care of your patient. Please feel free to contact me if you have any questions. Procedures Date of Service Date of Service: 08/27/24
[2024-08-27] MEDS: methylPREDNISolone Sod Succ 40 MG/ML VIAL IVPUSH ×2 (13:07→23:31)
[2024-08-27] MEDS: Acetaminophen 325 MG TABLET 650 MG PO (13:07)
[2024-08-27] MEDS: diphenhydrAMINE HCL 50 MG/ML VIAL 25 MG IVPUSH (13:07)
[2024-08-27] MEDS: Immune Globulin 10% Gammagard 5 GM/50 ML VIAL IV (13:55)
[2024-08-27] MEDS: Immune Globulin 10% Gammagard 30 GM/300 ML VIAL IV (15:09)
[2024-08-27] MEDS: cefTRIAXone sodium 1 GM VIAL IVPUSH (23:31)
[2024-08-28] VITALS (9 sets, daily range): BP systolic 108–154; BP diastolic 60–82; PULSE 100–122; RESP 17–20; TEMP 36.2–37; O2SAT 93–98
[2024-08-28] MEDS: Enoxaparin Sodium 40 MG/0.4 ML SYRINGE SUBCUT (06:20)
[2024-08-28] MEDS: metroNIDAZOLE/NS 500 MG/100 ML PIGGYBACK 100 MG IV ×3 (06:20→20:30)
[2024-08-28] MEDS: Fluticasone/Vilanterol 200/25 BLST.W.DEV 1 PUFF INHALE (07:26)
[2024-08-28] MEDS: Albuterol/Iprat 2.5/0.5MG 3 ML AMPUL.NEB INHALE ×3 (07:27→18:48)
[2024-08-28] MEDS: Loratadine 10 MG TABLET PO (08:59)
[2024-08-28] MEDS: pyRIDostigmine bromide 60 MG TABLET PO ×3 (08:59→20:32)
[2024-08-28] MEDS: Multivitamin TABLET 1 TAB PO (08:59)
[2024-08-28] MEDS: 0.9 % Sodium Chloride Flush 3 ML SYRINGE IVFLUSH ×2 (09:00→20:33)
--- NOTE | 2024-08-28 09:55 | HO.PM.IMPN ---
Subjective Subjective Date of Service: 08/28/24 Interval History: seen and examined this morning b/l ptosis still present but improved Review of Systems Review of Systems: Yes all other systems are reviewed and are negative Constitutional Constitutional: Denies chills and Denies fever(s) Cardiovascular Cardiovascular: Denies chest pain and Denies palpitations Respiratory Respiratory: Reports cough Endocrine Endocrine: Denies palpitations Physical Exam Vital Signs: Vital Signs: Last Vital Signs Temp 97.6 F 08/28/24 07:38 Pulse 100 08/28/24 07:38 Resp 20 08/28/24 07:38 BP 140/76 H 08/28/24 07:38 Pulse Ox 97 08/28/24 07:38 O2 Del Method Nasal Cannula 08/28/24 07:38 O2 Flow Rate 3 08/28/24 07:38 Oxygen Flow Rate 3 08/22/24 15:05 BMI result Body Mass Index 27.8 Appearing in no acute distress lung sounds are clear to auscultation heart regular rate rhythm, clear S1, S2 positive bowel sounds, abdomen is soft, nontender neuro patient is alert x3, no focal deficits Left eye ptosis Objective Data Active Medications Acetaminophen (Acetaminophen 325 Mg Tablet) 650 mg PO Q6H PRN PRN Reason: Pain, Mild 1-3,fever,headache Last Admin: 08/26/24 22:39 Dose: 650 mg Documented By: HANNAH Acetaminophen (Acetaminophen 325 Mg Tablet) 650 mg PO DAILY@1230 [facility] Stop: 08/30/24 12:31 Last Admin: 08/27/24 13:07 Dose: 650 mg Documented By: XENIA Albuterol/Ipratropium (Albuterol/Iprat 2.5/0.5mg 3 Ml Ampul.Neb) 3 ml INHALE RQ6H WHILE AWAKE [facility] Last Admin: 08/28/24 07:27 Dose: 3 ml Documented By: GUY Benzocaine (Throat Lozenge, Medicated Lozenge) 1 lozenge MUCOUS MEM Q2H PRN PRN Reason: Sore Throat Last Admin: 08/26/24 00:42 Dose: 1 lozenge Documented By: HANNAH Calcium Carbonate (Calcium Carbonate 750 Mg Tab.Chew) 750 mg PO Q4H PRN PRN Reason: Heartburn Ceftriaxone Sodium (Ceftriaxone Sodium 1 Gm Vial) 1 gm IVPUSH Q24H [facility] Last Admin: 08/27/24 23:31 Dose: 1 gm Documented By: HANNAH Diphenhydramine HCl (Diphenhydramine Hcl 50 Mg/Ml Vial) 25 mg IVPUSH Q6H PRN PRN Reason: allergy Last Admin: 08/27/24 13:07 Dose: 25 mg Documented By: XENIA Enoxaparin Sodium (Enoxaparin Sodium 40 Mg/0.4 Ml Syringe) 40 mg SUBCUT Q24H [facility] Last Admin: 08/28/24 06:20 Dose: 40 mg Documented By: HANNAH Fluticasone/Vilanterol (Fluticasone/Vilanterol 200/25 Blst.W.Dev) 1 puff INHALE RDAILY [facility] Last Admin: 08/28/24 07:26 Dose: 1 puff Documented By: GUY Immune Globulin (Gammagard 10%) 30 gm in 300 mls @ 43.392 mls/hr IV DAILY@1430 [facility] Stop: 08/30/24 21:25 Last Infusion: 08/27/24 22:35 Dose: Infused Documented By: HANNAH Immune Globulin (Gammagard 10%) 5 gm in 50 mls @ 43.392 mls/hr IV DAILY@1300 [facility] Stop: 08/30/24 14:10 Last Infusion: 08/27/24 15:35 Dose: Infused Documented By: XENIA Metronidazole (Flagyl) 500 mg in 100 mls @ 100 mls/hr IV Q8H [facility] Last Infusion: 08/28/24 08:00 Dose: Infused Documented By: JAC Loratadine (Loratadine 10 Mg Tablet) 10 mg PO DAILY [facility] Last Admin: 08/28/24 08:59 Dose: 10 mg Documented By: JAC Magnesium Hydroxide (Milk Of Magnesia 30 Ml Oral.Susp) 30 ml PO DAILY PRN PRN Reason: Constipation Melatonin (Melatonin 3 Mg Tablet) 6 mg PO BEDTIME PRN PRN Reason: Insomnia Last Admin: 08/26/24 00:13 Dose: 6 mg Documented By: HANNAH Methylprednisolone Sodium Succinate (Methylprednisolone Sod Succ 40 Mg/Ml Vial) 40 mg IVPUSH Q12H [facility] Last Admin: 08/27/24 23:31 Dose: 40 mg Documented By: HANNAH Metoprolol Tartrate (Metoprolol Tartrate 5 Mg/5 Ml Vial) 5 mg IVPUSH Q6H PRN; Protocol PRN Reason: Heart Rate >100 Last Admin: 08/25/24 17:00 Dose: 5 mg Documented By: JAC Multivitamins/Vitamin C (Multivitamin Tablet) 1 tab PO DAILY [facility] Last Admin: 08/28/24 08:59 Dose: 1 tab Documented By: JAC Ondansetron HCl (Ondansetron Hcl 4 Mg/2 Ml Vial) 4 mg IVPUSH Q8H PRN PRN Reason: Nausea and Vomiting Pravastatin Sodium (Pravastatin Sodium 80 Mg Tablet) 80 mg PO BEDTIME [facility] Last Admin: 08/24/24 21:01 Dose: 80 mg Documented By: ABDIEL Pyridostigmine [place] (Pyridostigmine [place] 60 Mg Tablet) 60 mg PO TID [facility] Last Admin: 08/28/24 08:59 Dose: 60 mg Documented By: JAC Sodium Chloride (0.9 % Sodium Chloride Flush 3 Ml Syringe) 3 ml IVFLUSH QSHIFT [facility] Last Admin: 08/28/24 09:00 Dose: 3 ml Documented By: JAC Labs 08/25/24 06:42 08/25/24 06:42 Microbiology Microbiology Results: Microbiology 08/22/24 16:30 Blood Culture - Final Blood - Venous No growth after 5 days. 08/22/24 16:30 Blood Culture - Final Blood - Venous No growth after 5 days. 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 no need to transfer to [facility] Neuro following >rec to start pyridostigmine 60 TID and IVIG x 5 days patient symptoms improving Sepsis with acute hypoxic respiratory failure secondary to aspiration pneumonia and acute COPD exacerbation. Resolved chest CTA negative for central or large proximal pulmonary emboli. Severe bullous emphysematous changes, with possible superimposed aspiration or pneumonia in the right lower lobe. 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 Ramesh Cole at [facility] will need follow up after discharge Elevated LFTs Trending down ?secondary to sepsis. cpk 532 hold statin for now Elevated troponin 539, 491, 185. no chest pain, likely due to demand. rule out myocarditis in setting of treatment with ICI for cancer and elevated cardiac enzymes echocardiogram ordered cardiology consult pending HLD/CAD hold satin due to above DNR/DNI VTE prophylaxis: Lovenox Requires ongoing inpatient hospital stay for further evaluation of ptosis, treatment of respiratory failure, tachycardia and elevated cardiac enzymes requiring further workup Quality Stroke Does the patient have a stroke diagnosis?: No VTE Prior VTE?: No VTE Risk Level:: Medical - moderate - high VTE Device Contraindication: Treatment Not Indicated VTE Drug Contraindication: N/A - Med Ordered
[2024-08-28] MEDS: diphenhydrAMINE HCL 50 MG/ML VIAL 25 MG IVPUSH ×2 (12:45→20:42)
[2024-08-28] MEDS: methylPREDNISolone Sod Succ 40 MG/ML VIAL IVPUSH (12:45)
[2024-08-28] MEDS: Immune Globulin 10% Gammagard 5 GM/50 ML VIAL IV (14:06)
[2024-08-28] MEDS: Immune Globulin 10% Gammagard 30 GM/300 ML VIAL IV (15:10)
[2024-08-28] MEDS: Acetaminophen 325 MG TABLET 650 MG PO (20:39)
[2024-08-29] VITALS (10 sets, daily range): BP systolic 119–140; BP diastolic 65–85; PULSE 100–125; RESP 16–19; TEMP 36.2–36.6; O2SAT 96–99
[2024-08-29] MEDS: methylPREDNISolone Sod Succ 40 MG/ML VIAL IVPUSH ×2 (00:04→11:56)
[2024-08-29] MEDS: cefTRIAXone sodium 1 GM VIAL IVPUSH (00:04)
[2024-08-29] MEDS: metroNIDAZOLE/NS 500 MG/100 ML PIGGYBACK 100 MG IV ×3 (05:31→21:40)
[2024-08-29] MEDS: Enoxaparin Sodium 40 MG/0.4 ML SYRINGE SUBCUT (05:52)
[2024-08-29] MEDS: Albuterol/Iprat 2.5/0.5MG 3 ML AMPUL.NEB INHALE ×3 (07:24→19:56)
[2024-08-29] MEDS: Fluticasone/Vilanterol 200/25 BLST.W.DEV 1 PUFF INHALE (07:24)
--- NOTE | 2024-08-29 08:29 | P.PNIM_ITS ---
Subjective Subjective Date of Service: 08/29/24 Interval History: seen and examined this morning b/l ptosis still present but improved Still with sob and secretions Review of Systems Review of Systems: Yes all other systems are reviewed and are negative Constitutional Constitutional: Denies chills and Denies fever(s) Cardiovascular Cardiovascular: Denies chest pain and Denies palpitations Respiratory Respiratory: Reports cough Endocrine Endocrine: Denies palpitations Physical Exam 2 Vital Signs: Vital Signs: Last Vital Signs Temp 97.1 F 08/29/24 07:07 Pulse 115 H 08/29/24 07:27 Resp 19 08/29/24 07:27 BP 119/74 08/29/24 07:07 Pulse Ox 99 08/29/24 07:07 O2 Del Method Nasal Cannula 08/29/24 07:07 O2 Flow Rate 3 08/29/24 07:07 Oxygen Flow Rate 3 08/22/24 15:05 BMI result Body Mass Index 27.8 Appearing in no acute distress lung sounds are clear to auscultation heart regular rate rhythm, clear S1, S2 positive bowel sounds, abdomen is soft, nontender neuro patient is alert x3, no focal deficits Objective Data Active Medications Acetaminophen (Acetaminophen 325 Mg Tablet) 650 mg PO Q6H PRN PRN Reason: Pain, Mild 1-3,fever,headache Last Admin: 08/28/24 20:39 Dose: 650 mg Documented By: BELL Acetaminophen (Acetaminophen 325 Mg Tablet) 650 mg PO DAILY@1230 [facility] Stop: 08/30/24 12:31 Last Admin: 08/28/24 12:50 Dose: Not Given Documented By: JAC Non-Admin Reason: Patient Refused Albuterol/Ipratropium (Albuterol/Iprat 2.5/0.5mg 3 Ml Ampul.Neb) 3 ml INHALE RQ6H WHILE AWAKE [facility] Last Admin: 08/29/24 07:24 Dose: 3 ml Documented By: KRISTAL Benzocaine (Throat Lozenge, Medicated Lozenge) 1 lozenge MUCOUS MEM Q2H PRN PRN Reason: Sore Throat Last Admin: 08/26/24 00:42 Dose: 1 lozenge Documented By: HANNAH Calcium Carbonate (Calcium Carbonate 750 Mg Tab.Chew) 750 mg PO Q4H PRN PRN Reason: Heartburn Ceftriaxone Sodium (Ceftriaxone Sodium 1 Gm Vial) 1 gm IVPUSH Q24H [facility] Last Admin: 08/29/24 00:04 Dose: 1 gm Documented By: BELL Diphenhydramine HCl (Diphenhydramine Hcl 50 Mg/Ml Vial) 25 mg IVPUSH Q6H PRN PRN Reason: allergy Last Admin: 08/28/24 20:42 Dose: 25 mg Documented By: BELL Enoxaparin Sodium (Enoxaparin Sodium 40 Mg/0.4 Ml Syringe) 40 mg SUBCUT Q24H [facility] Last Admin: 08/29/24 05:52 Dose: 40 mg Documented By: BELL Fluticasone/Vilanterol (Fluticasone/Vilanterol 200/25 Blst.W.Dev) 1 puff INHALE RDAILY [facility] Last Admin: 08/29/24 07:24 Dose: 1 puff Documented By: KRISTAL Immune Globulin (Gammagard 10%) 30 gm in 300 mls @ 43.392 mls/hr IV DAILY@1430 [facility] Stop: 08/30/24 21:25 Last Infusion: 08/28/24 22:05 Dose: Infused Documented By: BELL Immune Globulin (Gammagard 10%) 5 gm in 50 mls @ 43.392 mls/hr IV DAILY@1300 [facility] Stop: 08/30/24 14:10 Last Infusion: 08/28/24 15:00 Dose: Infused Documented By: JAC Metronidazole (Flagyl) 500 mg in 100 mls @ 100 mls/hr IV Q8H [facility] Last Admin: 08/29/24 05:31 Dose: 100 mls/hr Documented By: BELL Loratadine (Loratadine 10 Mg Tablet) 10 mg PO DAILY [facility] Last Admin: 08/28/24 08:59 Dose: 10 mg Documented By: JAC Magnesium Hydroxide (Milk Of Magnesia 30 Ml Oral.Susp) 30 ml PO DAILY PRN PRN Reason: Constipation Melatonin (Melatonin 3 Mg Tablet) 6 mg PO BEDTIME PRN PRN Reason: Insomnia Last Admin: 08/26/24 00:13 Dose: 6 mg Documented By: HANNAH Methylprednisolone Sodium Succinate (Methylprednisolone Sod Succ 40 Mg/Ml Vial) 40 mg IVPUSH Q12H [facility] Last Admin: 08/29/24 00:04 Dose: 40 mg Documented By: BELL Metoprolol Tartrate (Metoprolol Tartrate 5 Mg/5 Ml Vial) 5 mg IVPUSH Q6H PRN; Protocol PRN Reason: Heart Rate >100 Last Admin: 08/25/24 17:00 Dose: 5 mg Documented By: JAC Multivitamins/Vitamin C (Multivitamin Tablet) 1 tab PO DAILY [facility] Last Admin: 08/28/24 08:59 Dose: 1 tab Documented By: JAC Ondansetron HCl (Ondansetron Hcl 4 Mg/2 Ml Vial) 4 mg IVPUSH Q8H PRN PRN Reason: Nausea and Vomiting Pravastatin Sodium (Pravastatin Sodium 80 Mg Tablet) 80 mg PO BEDTIME [facility] Last Admin: 08/24/24 21:01 Dose: 80 mg Documented By: ABDIEL Pyridostigmine Jackson (Pyridostigmine Jackson 60 Mg Tablet) 60 mg PO TID [facility] Last Admin: 08/28/24 20:32 Dose: 60 mg Documented By: BELL Sodium Chloride (0.9 % Sodium Chloride Flush 3 Ml Syringe) 3 ml IVFLUSH QSHIFT [facility] Last Admin: 08/28/24 20:33 Dose: 3 ml Documented By: BELL Labs 08/25/24 06:42 08/25/24 06:42 Assessment and Plan (1) Myasthenia gravis: Status: Acute (2) Elevated LFTs: Status: Acute (3) Aspiration pneumonia: Status: Acute (4) Sepsis: Status: Acute (5) Tachycardia: Status: Acute Plan 79-year-old male with a past medical history significant for 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 no need to transfer to [facility] Neuro following >rec to start pyridostigmine 60 TID and IVIG x 5 days patient symptoms improving Sepsis with acute hypoxic respiratory failure secondary to aspiration pneumonia and acute COPD exacerbation. Resolved chest CTA negative for central or large proximal pulmonary emboli. Severe bullous emphysematous changes, with possible superimposed aspiration or pneumonia in the right lower lobe. 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 Ramesh Cole at [facility] will need follow up after discharge Elevated LFTs Trending down ?secondary to sepsis. cpk 532 hold statin for now Elevated troponin 539, 491, 185. no chest pain, likely due to demand. rule out myocarditis in setting of treatment with ICI for cancer and elevated cardiac enzymes echocardiogram ordered cardiology consult pending HLD/CAD hold satin due to above DNR/DNI VTE prophylaxis: Lovenox Requires ongoing inpatient hospital stay for further evaluation of ptosis, treatment of respiratory failure, tachycardia and elevated cardiac enzymes requiring further workup Quality Stroke Does the patient have a stroke diagnosis?: No VTE Prior VTE?: No VTE Risk Level:: Medical - moderate - high VTE Device Contraindication: Treatment Not Indicated VTE Drug Contraindication: N/A - Med Ordered
[2024-08-29] MEDS: pyRIDostigmine bromide 60 MG TABLET PO ×3 (10:59→21:40)
[2024-08-29] MEDS: Multivitamin TABLET 1 TAB PO (10:59)
[2024-08-29] MEDS: Loratadine 10 MG TABLET PO (10:59)
[2024-08-29] MEDS: 0.9 % Sodium Chloride Flush 3 ML SYRINGE IVFLUSH ×2 (11:00→21:43)
--- NOTE | 2024-08-29 11:22 | MHC.SL.SWA ---
Speech Pathologist Impression: Risk of Aspiration, Severe Oropharyngeal Dysphagia, Aspiration seen on MBSS 08/26 Dysphasia Diet Status: No Change Liquid Consistency and Strategies for Safe Swallow: Liquid Intake Recommendation: Honey Thick Liquid Intake Strategies: Small Sips No Straws Double Swallow Solid Food Consistency: Dietary Recommendations: Pureed (NDD1) Oral Medication Intake: Crushed with Puree Please contact the pharmacy regarding appropriate crushable or liquid drug formulations that are available whenever modified delivery is recommended. Compensatory Strategies and Precautions to be Taken for Safe Swallow: Sitting Upright (90 deg) Double Swallow No Straw Small Bites and Sips Rate of Ingestion Change Supervision While Eating and Drinking for Safe Swallow: Direct Supervision (1:1) Foods to Avoid: Difficult to chew solids. Swallowing Recommended Treatments: Compens. Strategy Educat. Recommendation for Speech: Inpatient Speech Therapy Speech Therapy through Rehab Facility Comment: Intake Recommendations: Route: PO Diet Grade: Puree Liquid Consistencies: Honey Post-Study Functional Oral Intake Scale (FOIS): 5- Total oral intake of multiple consistencies requiring special preparation Patient presents with severe oropharyngeal dysphagia, characterized by minimal mastication, maladaptive tongue pumping movement, delayed pharyngeal swallow trigger, absent epiglottic inversion and incomplete laryngeal vestibular closure. Silent aspiration seen on trial of thin liquid. Penetration to the vocal folds on trial of nectar thick, which patient partially cleared on cued throat clear. Penetration seen above the vocal folds with honey thick liquid, which was eliminated on cued throat clearing. Mild to moderate pharyngeal retention on liquids and semi-solids, which decreased with multiple dry swallows. Patient was not able to clear significant retention in the pyriforms on ground solid. Also note patient expectorating ground meat prior to the exam and on one trial during the exam. Recommend DOWNGRADE to PUREED (NDD1) solids and HONEY THICK liquids, pills CRUSHED in PUREE. Patient is able to feed himself, but is recommended direct supervision to monitor progression through meal and provide cues as needed for safe feeding strategies: -take small bites -1-2 dry swallows after each bite -liquids by teaspoon or controlled cup sip -take one sip at a time -follow each sip with throat clear & 1-2 dry swallows -avoid the use of straws -maintain upright 90 degree position during PO intake and for at least 30 minutes afterwards Therapy Recommendations: Recommend continued speech therapy during inpatient stay and at the next level of care for the treatment of dysphagia. Patient is recommended to continue on recommended modified diet after discharge. The following compensatory strategies and/or therapeutic exercises will be part of the upcoming therapy/management plan: Bolus Volume Change Additional Swallow(s) per Bolus Snf Goals: ? The patient will tolerate the least restrictive diet with a safe/efficient swallow to maintain adequate nutrition and hydration. ? The patient and/or family will participate in further education for swallowing goals. Short Term Goals: ? Diet - The patient will tolerate a pureed diet with honey thick liquids without signs or symptoms of penetration/aspiration 100% of the time. - The patient will participate in therapeutic PO trials with the BRAKE REPAIRER AIR. ? Guidelines - The patient will comply with/recall the following guidelines/strategies 100% of the time with minimal cuing: Honey-thick Liquid, Bolus Volume Change, Rate of Ingestion Change, Additional Swallow(s) per Bolus, Throat Clear, No Straws. ? Education - The patient, family, caregiver, nurse will verbalize/demonstrate understanding of the results of this evaluation, the above recommendations, and the swallowing guidelines. Frequency/Duration: M-F while inpatient Date Range for Service Req: Timeline to reassess: PRN Scrum Coach Clinican/Clinical Fellow: No Supervisory Statement: I have reviewed and agree with the student/clinical fellow's documentation: N/A Speech Language Pathologist: Kamila Armstrong M.A., [facility]BRAKE REPAIRER [employer]
[2024-08-29] MEDS: Acetaminophen 325 MG TABLET 650 MG PO ×2 (11:57→15:59)
[2024-08-29] MEDS: Immune Globulin 10% Gammagard 5 GM/50 ML VIAL IV (12:58)
[2024-08-29] MEDS: Immune Globulin 10% Gammagard 30 GM/300 ML VIAL IV (14:52)
[2024-08-29] MEDS: Metoprolol Tartrate 12.5 MG HALFTAB PO ×2 (15:58→21:40)
[2024-08-29] MEDS: diphenhydrAMINE HCL 50 MG/ML VIAL 25 MG IVPUSH (15:58)
[2024-08-30] VITALS (10 sets, daily range): BP systolic 111–139; BP diastolic 58–87; PULSE 91–119; RESP 16–24; TEMP 36.1–36.4; O2SAT 92–98
[2024-08-30] MEDS: cefTRIAXone sodium 1 GM VIAL IVPUSH (00:30)
[2024-08-30] MEDS: methylPREDNISolone Sod Succ 40 MG/ML VIAL IVPUSH ×2 (01:31→14:02)
[2024-08-30] MEDS: metroNIDAZOLE/NS 500 MG/100 ML PIGGYBACK 100 MG IV ×2 (06:09→15:54)
[2024-08-30] MEDS: Enoxaparin Sodium 40 MG/0.4 ML SYRINGE SUBCUT (06:09)
[2024-08-30] MEDS: Albuterol/Iprat 2.5/0.5MG 3 ML AMPUL.NEB INHALE ×3 (07:32→19:32)
[2024-08-30] MEDS: Fluticasone/Vilanterol 200/25 BLST.W.DEV 1 PUFF INHALE (07:32)
[2024-08-30] MEDS: Metoprolol Tartrate 12.5 MG HALFTAB PO ×2 (08:43→22:22)
[2024-08-30] MEDS: Multivitamin TABLET 1 TAB PO (08:43)
[2024-08-30] MEDS: pyRIDostigmine bromide 60 MG TABLET PO ×3 (08:43→22:22)
[2024-08-30] MEDS: Loratadine 10 MG TABLET PO (08:43)
[2024-08-30] MEDS: 0.9 % Sodium Chloride Flush 3 ML SYRINGE IVFLUSH (08:44)
--- NOTE | 2024-08-30 09:09 | P.PNIM_ITS ---
Subjective Subjective Date of Service: 08/30/24 Interval History: seen and examined this morning b/l ptosis still present but improved feels tired bur reports that he has been getting sleep Review of Systems Review of Systems: Yes all other systems are reviewed and are negative Constitutional Constitutional: Denies chills and Denies fever(s) Cardiovascular Cardiovascular: Denies chest pain and Denies palpitations Respiratory Respiratory: Reports cough Endocrine Endocrine: Denies palpitations Physical Exam 2 Vital Signs: Vital Signs: Last Vital Signs Temp 97.2 F 08/30/24 07:11 Pulse 103 H 08/30/24 07:39 Resp 18 08/30/24 07:39 BP 123/71 08/30/24 07:11 Pulse Ox 98 08/30/24 07:11 O2 Del Method Nasal Cannula 08/30/24 07:11 O2 Flow Rate 3 08/30/24 07:11 Oxygen Flow Rate 3 08/22/24 15:05 BMI result Body Mass Index 27.8 Appearing in no acute distress lung sounds are clear to auscultation heart regular rate rhythm, clear S1, S2 positive bowel sounds, abdomen is soft, nontender neuro patient is alert x3, no focal deficits Objective Data Active Medications Acetaminophen (Acetaminophen 325 Mg Tablet) 650 mg PO Q6H PRN PRN Reason: Pain, Mild 1-3,fever,headache Last Admin: 08/28/24 20:39 Dose: 650 mg Documented By: BELL Acetaminophen (Acetaminophen 325 Mg Tablet) 650 mg PO DAILY@1230 [facility] Stop: 08/30/24 12:31 Last Admin: 08/29/24 15:59 Dose: 650 mg Documented By: JAC Albuterol/Ipratropium (Albuterol/Iprat 2.5/0.5mg 3 Ml Ampul.Neb) 3 ml INHALE RQ6H WHILE AWAKE [facility] Last Admin: 08/30/24 07:32 Dose: 3 ml Documented By: TWILA Benzocaine (Throat Lozenge, Medicated Lozenge) 1 lozenge MUCOUS MEM Q2H PRN PRN Reason: Sore Throat Last Admin: 08/26/24 00:42 Dose: 1 lozenge Documented By: HANNAH Calcium Carbonate (Calcium Carbonate 750 Mg Tab.Chew) 750 mg PO Q4H PRN PRN Reason: Heartburn Ceftriaxone Sodium (Ceftriaxone Sodium 1 Gm Vial) 1 gm IVPUSH Q24H [facility] Last Admin: 08/30/24 00:30 Dose: 1 gm Documented By: BELL Diphenhydramine HCl (Diphenhydramine Hcl 50 Mg/Ml Vial) 25 mg IVPUSH Q6H PRN PRN Reason: allergy Last Admin: 08/29/24 15:58 Dose: 25 mg Documented By: JAC Enoxaparin Sodium (Enoxaparin Sodium 40 Mg/0.4 Ml Syringe) 40 mg SUBCUT Q24H [facility] Last Admin: 08/30/24 06:09 Dose: 40 mg Documented By: BELL Fluticasone/Vilanterol (Fluticasone/Vilanterol 200/25 Blst.W.Dev) 1 puff INHALE RDAILY [facility] Last Admin: 08/30/24 07:32 Dose: 1 puff Documented By: TWILA Immune Globulin (Gammagard 10%) 30 gm in 300 mls @ 43.392 mls/hr IV DAILY@1430 [facility] Stop: 08/30/24 21:25 Last Infusion: 08/29/24 21:47 Dose: Infused Documented By: BELL Immune Globulin (Gammagard 10%) 5 gm in 50 mls @ 43.392 mls/hr IV DAILY@1300 [facility] Stop: 08/30/24 14:10 Last Infusion: 08/29/24 14:08 Dose: Infused Documented By: JAC Metronidazole (Flagyl) 500 mg in 100 mls @ 100 mls/hr IV Q8H [facility] Last Infusion: 08/30/24 07:10 Dose: Infused Documented By: JAC Loratadine (Loratadine 10 Mg Tablet) 10 mg PO DAILY [facility] Last Admin: 08/30/24 08:43 Dose: 10 mg Documented By: JAC Magnesium Hydroxide (Milk Of Magnesia 30 Ml Oral.Susp) 30 ml PO DAILY PRN PRN Reason: Constipation Melatonin (Melatonin 3 Mg Tablet) 6 mg PO BEDTIME PRN PRN Reason: Insomnia Last Admin: 08/26/24 00:13 Dose: 6 mg Documented By: HANNAH Methylprednisolone Sodium Succinate (Methylprednisolone Sod Succ 40 Mg/Ml Vial) 40 mg IVPUSH Q12H [facility] Last Admin: 08/30/24 01:31 Dose: 40 mg Documented By: BELL Metoprolol Tartrate (Metoprolol Tartrate 5 Mg/5 Ml Vial) 5 mg IVPUSH Q6H PRN; Protocol PRN Reason: Heart Rate >100 Last Admin: 08/25/24 17:00 Dose: 5 mg Documented By: JAC Metoprolol Tartrate (Metoprolol Tartrate 12.5 Mg Halftab) 12.5 mg PO BID [facility]; Protocol Last Admin: 08/30/24 08:43 Dose: 12.5 mg Documented By: JAC Multivitamins/Vitamin C (Multivitamin Tablet) 1 tab PO DAILY [facility] Last Admin: 08/30/24 08:43 Dose: 1 tab Documented By: JAC Ondansetron HCl (Ondansetron Hcl 4 Mg/2 Ml Vial) 4 mg IVPUSH Q8H PRN PRN Reason: Nausea and Vomiting Pravastatin Sodium (Pravastatin Sodium 80 Mg Tablet) 80 mg PO BEDTIME [facility] Last Admin: 08/24/24 21:01 Dose: 80 mg Documented By: ABDIEL Pyridostigmine [place] (Pyridostigmine [place] 60 Mg Tablet) 60 mg PO TID [facility] Last Admin: 08/30/24 08:43 Dose: 60 mg Documented By: JAC Sodium Chloride (0.9 % Sodium Chloride Flush 3 Ml Syringe) 3 ml IVFLUSH QSHIFT [facility] Last Admin: 08/30/24 08:44 Dose: 3 ml Documented By: JAC Labs 08/25/24 06:42 08/25/24 06:42 Assessment and Plan (1) Myasthenia gravis: Status: Acute (2) Elevated LFTs: Status: Acute (3) Aspiration pneumonia: Status: Acute (4) Sepsis: Status: Acute (5) Tachycardia: Status: Acute Plan 79-year-old male with a past medical history significant for 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 no need to transfer to [facility] Neuro following >rec to start pyridostigmine 60 TID and IVIG x 5 days patient symptoms improving Sepsis with acute hypoxic respiratory failure secondary to aspiration pneumonia and acute COPD exacerbation. Resolved chest CTA negative for central or large proximal pulmonary emboli. Severe bullous emphysematous changes, with possible superimposed aspiration or pneumonia in the right lower lobe. 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 Ramesh Cole at [facility] will need follow up after discharge Elevated LFTs Trending down ?secondary to sepsis. cpk 532 hold statin for now Elevated troponin 539, 491, 185. no chest pain, likely due to demand. rule out myocarditis in setting of treatment with ICI for cancer and elevated cardiac enzymes echocardiogram ordered cardiology consult pending HLD/CAD hold satin due to above DNR/DNI VTE prophylaxis: Lovenox DISPO PT to evaluate Requires ongoing inpatient hospital stay for further evaluation of ptosis, treatment of respiratory failure, tachycardia and elevated cardiac enzymes requiring further workup Quality Stroke Does the patient have a stroke diagnosis?: No VTE Prior VTE?: No VTE Risk Level:: Medical - moderate - high VTE Device Contraindication: Treatment Not Indicated VTE Drug Contraindication: N/A - Med Ordered
--- NOTE | 2024-08-30 10:42 | MHC.CM.PN ---
Per ROUNDS discussion, Patient is not yet medically cleared for dc (last day of IVIG); PT is recommending Inpatient Pulmonary Rehab and Patient has 3 accepting facilities.With Patient's permission, CM spoke with Sister/HCP/Namrata @ [phone] who confirmed that Patient's septic system has failed and that there is no running water. Namrata plans to have a family meeting with Patient to strongly encourage STR. CM will follow.
--- NOTE | 2024-08-30 13:45 | MHC.SL.SWA ---
Risk of Aspiration Due to: MG Dysphasia Diet Status: NO CHANGE Liquid Consistency and Strategies for Safe Swallow: Liquid Intake Recommendation: Honey Thick Liquid Intake Strategies: Small Sips No Straws Double Swallow Solid Food Consistency: Dietary Recommendations: Pureed (NDD1) Additional Modifications to Solid Foods: -take small bites -1-2 dry swallows after each bite -liquids by teaspoon or controlled cup sip -take one sip at a time -follow each sip with throat clear & 1-2 dry swallows -avoid the use of straws -maintain upright 90 degree position during PO intake and for at least 30 minutes afterwards Oral Medication Intake: Crushed with Puree Please contact the pharmacy regarding appropriate crushable or liquid drug formulations that are available whenever modified delivery is recommended. Compensatory Strategies and Precautions to be Taken for Safe Swallow: Sitting Upright (90 deg) Double Swallow No Straw Small Bites and Sips Rate of Ingestion Change Supervision While Eating and Drinking for Safe Swallow: Direct Supervision (1:1) Foods to Avoid: Difficult to chew solids. Swallowing Recommended Treatments: Compens. Strategy Educat. Recommendation for Speech: Inpatient Speech Therapy Speech Therapy through Rehab Facility Comment: Pt seen for MBSS on 08/26; Patient presents with severe oropharyngeal dysphagia, characterized by minimal mastication, maladaptive tongue pumping movement, delayed pharyngeal swallow trigger, absent epiglottic inversion and incomplete laryngeal vestibular closure. Silent aspiration on thin liquid. Recommend pt continue w08/26 MBSS recommendations: PUREED (NDD1) solids and HONEY THICK liquids, pills CRUSHED in PUREE. Patient is able to feed himself, but is recommended direct supervision to monitor progression through meal and provide cues as needed for safe feeding strategies: -take small bites -1-2 dry swallows after each bite -liquids by teaspoon or controlled cup sip -take one sip at a time -follow each sip with throat clear & 1-2 dry swallows -avoid the use of straws -maintain upright 90 degree position during PO intake and for at least 30 minutes afterwards Pt on final day of IVIG. Pt would benefit from f/u MBSS at some point after completion of tx if pt has not returned to baseline diet. 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
[2024-08-30] MEDS: Acetaminophen 325 MG TABLET 650 MG PO (14:02)
[2024-08-30] MEDS: diphenhydrAMINE HCL 50 MG/ML VIAL 25 MG IVPUSH (14:02)
[2024-08-30] MEDS: Immune Globulin 10% Gammagard 5 GM/50 ML VIAL 0.8 GM IV (14:03)
[2024-08-30] MEDS: Immune Globulin 10% Gammagard 30 GM/300 ML VIAL IV (15:59)
[2024-08-30] MEDS: Dextrose 5 % and 0.9 % NaCl 1,000 ML 80 ML IVCONT (18:53)
[2024-08-31] VITALS (10 sets, daily range): BP systolic 111–144; BP diastolic 58–83; PULSE 95–112; RESP 18–20; TEMP 36.1–36.6; O2SAT 96–100
[2024-08-31] MEDS: 0.9 % Sodium Chloride Flush 3 ML SYRINGE IVFLUSH ×3 (00:27→15:42)
[2024-08-31] MEDS: methylPREDNISolone Sod Succ 40 MG/ML VIAL IVPUSH ×2 (00:27→13:12)
[2024-08-31] MEDS: Enoxaparin Sodium 40 MG/0.4 ML SYRINGE SUBCUT (06:05)
[2024-08-31] MEDS: Dextrose 5 % and 0.9 % NaCl 1,000 ML 80 ML IVCONT ×2 (06:05→18:29)
[2024-08-31] MEDS: Fluticasone/Vilanterol 200/25 BLST.W.DEV 1 PUFF INHALE (07:24)
[2024-08-31] MEDS: Albuterol/Iprat 2.5/0.5MG 3 ML AMPUL.NEB INHALE ×3 (07:24→19:41)
[2024-08-31 08:52] LABS: MANUAL DIFF FLAG NO
[2024-08-31 08:56] LABS: Basophils Percent Auto 0.1 % (0-2); Hematocrit 43.6 % (42.0-52.0); Hemoglobin 13.7 g/dl (14.0-18.0); Imm Gran Abs Auto 0.07 X10*3/uL (0.00-0.03); Imm Gran Pct Auto 0.7 % (0.0-0.4); Lymphocytes Absolute Auto 0.5 X10*3/uL (1.2-4.9); Lymphocytes Percent Auto 5.6 % (20-40); Mean Corpuscular HGB Conc 31.4 g/dl (31.0-36.0); Mean Corpuscular Hemoglobin 30.4 pg (27.0-33.0); Mean Corpuscular Volume 96.9 fL (80.0-98.0); Mean Platelet Volume 8.5 fL (9.4-12.4); Monocytes Absolute Auto 0.7 X10*3/uL (0.1-1.2); Monocytes Percent Auto 6.9 % (2-11); Neutrophils Absolute Auto 8.4 x10*3/uL (2.0-8.3); Neutrophils Percent Auto 86.7 % (45-73); Platelet Count 167 X10*3/uL (160-400); Red Cell Distribution Width 16.2 % (11.0-16.0); White Blood Count 9.7 X10*3/uL (4.8-10.8)
[2024-08-31 09:13] LABS: Anion Gap 5 (12-20); Blood Urea Nitrogen 27 mg/dL (9-16); Calcium 8.8 mg/dL (8.4-10.2); Carbon Dioxide 37 mmol/L (22-29); Chloride 103 mmol/L (96-108); Creatinine Clr Calc Pharmacy 152.2; Estimated Glomerular Filt Rate > 60; Glucose Random 143 mg/dL (60-115); Sodium 141 mmol/L (135-145)
[2024-08-31] MEDS: Loratadine 10 MG TABLET PO (09:54)
[2024-08-31] MEDS: pyRIDostigmine bromide 60 MG TABLET PO ×3 (09:54→21:47)
[2024-08-31] MEDS: Metoprolol Tartrate 12.5 MG HALFTAB PO ×2 (09:54→21:47)
[2024-08-31] MEDS: Multivitamin TABLET 1 TAB PO (09:55)
--- NOTE | 2024-08-31 11:37 | MHC.SL.SWA ---
Speech Pathologist Impression: Mild to moderate variable dysphagia Risk of Aspiration Due to: Question of MG Dysphasia Diet Status: Upgrade to NDD3, NTL (nectar thickened liquids), supervision during PO, cue pt to slow pace 08/31: Pt seen for dysphagia re-evaluation, pt expressed dislike for thickened liquid/puree diet. Pt using [place] for oral suctioning of secretions and mucous. Pt coughing forward phlegm and spitting into emesis bag. Pt voicing harsh and strangled but audible. Intermittent vocal wetness in absence of PO; pt cleared throat periodically. Pt trialed with thins: oral phase of swallow WNL, no anterior loss of fluid. Pharyngeal trigger was timely but post deglutition cough indicated airway penetration of thins. Pt provided with ongoing education about s/s of dysphagia relative to MG. Trials of NTL implemented, pt tolerated small sips of NTL with good oropharyngeal coordination, throat clear x2 post swallow. No cough observed with NTL. Pt trialed with tayla cracker; pt moistened bolus with NTL. Mastication WFL (pt wearing dentures). Pt tolerated tayla cracker without overt s/s of aspiration. Pt family arrived during visit; RN FIELD discussed recommendations for diet advance. Recc NDD3 with NTL, supervision for safety, aspiration precautions. Pt in agreement with f/u MBSS in the future, as indicated. Pt seen for MBSS on 08/26; Patient presents with severe oropharyngeal dysphagia, characterized by minimal mastication, maladaptive tongue pumping movement, delayed pharyngeal swallow trigger, absent epiglottic inversion and incomplete laryngeal vestibular closure. Silent aspiration on thin liquid. Recommend pt continue w/ 08/26 MBSS recommendations: Patient is able to feed himself, but is recommended direct supervision to monitor progression through meal and provide cues as needed for safe feeding strategies: -take small bites -1-2 dry swallows after each bite -liquids by teaspoon or controlled cup sip -take one sip at a time -follow each sip with throat clear & 1-2 dry swallows -avoid the use of straws -maintain upright 90 degree position during PO intake and for at least 30 minutes afterwards Pt on final day of IVIG. Pt would benefit from f/u MBSS at some point after completion of tx if pt has not returned to baseline diet. Liquid Consistency and Strategies for Safe Swallow: Liquid Intake Recommendation: [place] Thick Liquid Intake Strategies: Small Sips No Straws Double Swallow Solid Food Consistency: Dietary Recommendations: Additional Modifications to Solid Foods: Patient is able to feed himself, but is recommended direct supervision to monitor progression through meal and provide cues as needed for safe feeding strategies: -take small bites -1-2 dry swallows after each bite -liquids by teaspoon or controlled cup sip -take one sip at a time -follow each sip with throat clear & 1-2 dry swallows -avoid the use of straws -maintain upright 90 degree position during PO intake and for at least 30 minutes afterwards Therapy Recommendations: Recommend continued speech therapy during inpatient stay and at the next level of care for the treatment of dysphagia. Patient is recommended to continue on recommended modified diet after discharge. Oral Medication Intake: Crushed with Puree Please contact the pharmacy regarding appropriate crushable or liquid drug formulations that are available whenever modified delivery is recommended. Compensatory Strategies and Precautions to be Taken for Safe Swallow: Sitting Upright (90 deg) Double Swallow No Straw Small Bites and Sips Rate of Ingestion Change Supervision While Eating and Drinking for Safe Swallow: Direct Supervision (1:1) Foods to Avoid: Difficult to chew solids. Swallowing Recommended Treatments: Compens. Strategy Educat. Recommendation for Speech: Inpatient Speech Therapy Speech Therapy through Rehab Facility Comment: Intake Recommendations: Route: PO Diet Upgrade: NDD3 Liquid Consistencies: [place] Post-Study Functional Oral Intake Scale (FOIS): 5- Total oral intake of multiple consistencies requiring special preparation Presto Log Operator Goals: ? The patient will tolerate the least restrictive diet with a safe/efficient swallow to maintain adequate nutrition and hydration. ? The patient and/or family will participate in further education for swallowing goals. Short Term Goals: ? Diet - The patient will tolerate a pureed diet with honey thick liquids without signs or symptoms of penetration/aspiration 100% of the time. - The patient will participate in therapeutic PO trials with the RN FIELD. ? Guidelines - The patient will comply with/recall the following guidelines/strategies 100% of the time with minimal cuing: Honey-thick Liquid, Bolus Volume Change, Rate of Ingestion Change, Additional Swallow(s) per Bolus, Throat Clear, No Straws. ? Education - The patient, family, caregiver, nurse will verbalize/demonstrate understanding of the results of this evaluation, the above recommendations, and the swallowing guidelines. Frequency/Duration: M-F while inpatient Date Range for Service Req: Timeline to reassess: PRN Lozenge Dough Mixer Clinican/Clinical Fellow: No Supervisory Statement: I have reviewed and agree with the student/clinical fellow's documentation: N/A Speech Language Pathologist: Deanna Armando M.S., [facility]-RN FIELD
--- NOTE | 2024-08-31 15:04 | HO.PM.IMPN ---
Subjective Subjective Date of Service: 08/31/24 Interval History: Seen and evaluated this morning report not feeling any better does not like the food offered no other overnight events Review of Systems Review of Systems: Yes all other systems are reviewed and are negative Physical Exam Vital Signs: Vital Signs: Last Vital Signs Temp 97.9 F 08/31/24 11:27 Pulse 112 H 08/31/24 11:27 Resp 20 08/31/24 11:27 BP 111/76 08/31/24 11:27 Pulse Ox 100 08/31/24 11:27 O2 Del Method Nasal Cannula 08/31/24 11:27 O2 Flow Rate 2 08/31/24 11:27 Oxygen Flow Rate 3 08/22/24 15:05 BMI result Body Mass Index 27.8 Const: Other: Constitutional : Awake, interactive, not in distress Neck : Normal inspection, Supple Cardiovascular : RRR, no JVP, no lower extremity edema Respiratory : good bilateral air entry, no crackles, wheezes or rhonchi Gastrointestinal: soft, lax, Normal bowel sounds, Non tender Skin : Warm, Dry Neurological : Alert & oriented x3, More left-sided ptosis than right side. Extraocular muscles are intact, reporting double with both eyes open. Face was symmetrical. There was no focal arm or leg weakness. Speech was normal. Affect was normal. Objective Data Active Medications Acetaminophen (Acetaminophen 325 Mg Tablet) 650 mg PO Q6H PRN PRN Reason: Pain, Mild 1-3,fever,headache Last Admin: 08/30/24 14:02 Dose: 650 mg Documented By: JAC Albuterol/Ipratropium (Albuterol/Iprat 2.5/0.5mg 3 Ml Ampul.Neb) 3 ml INHALE RQ6H WHILE AWAKE [facility] Last Admin: 08/31/24 15:02 Dose: 3 ml Documented By: TWILA Benzocaine (Throat Lozenge, Medicated Lozenge) 1 lozenge MUCOUS MEM Q2H PRN PRN Reason: Sore Throat Last Admin: 08/26/24 00:42 Dose: 1 lozenge Documented By: HANNAH Calcium Carbonate (Calcium Carbonate 750 Mg Tab.Chew) 750 mg PO Q4H PRN PRN Reason: Heartburn Diphenhydramine HCl (Diphenhydramine Hcl 50 Mg/Ml Vial) 25 mg IVPUSH Q6H PRN PRN Reason: allergy Last Admin: 08/30/24 14:02 Dose: 25 mg Documented By: JAC Enoxaparin Sodium (Enoxaparin Sodium 40 Mg/0.4 Ml Syringe) 40 mg SUBCUT Q24H [facility] Last Admin: 08/31/24 06:05 Dose: 40 mg Documented By: MARCELLO Fluticasone/Vilanterol (Fluticasone/Vilanterol 200/25 Blst.W.Dev) 1 puff INHALE RDAILY [facility] Last Admin: 08/31/24 07:24 Dose: 1 puff Documented By: TWILA Dextrose/Sodium Chloride (D5ns) 1,000 mls @ 80 mls/hr IVCONT .[id number] [facility] Last Admin: 08/31/24 06:05 Dose: 80 mls/hr Documented By: MARCELLO Loratadine (Loratadine 10 Mg Tablet) 10 mg PO DAILY [facility] Last Admin: 08/31/24 09:54 Dose: 10 mg Documented By: KENTRELL Magnesium Hydroxide (Milk Of Magnesia 30 Ml Oral.Susp) 30 ml PO DAILY PRN PRN Reason: Constipation Melatonin (Melatonin 3 Mg Tablet) 6 mg PO BEDTIME PRN PRN Reason: Insomnia Last Admin: 08/26/24 00:13 Dose: 6 mg Documented By: HANNAH Methylprednisolone Sodium Succinate (Methylprednisolone Sod Succ 40 Mg/Ml Vial) 40 mg IVPUSH Q12H [facility] Last Admin: 08/31/24 13:12 Dose: 40 mg Documented By: KENTRELL Metoprolol Tartrate (Metoprolol Tartrate 5 Mg/5 Ml Vial) 5 mg IVPUSH Q6H PRN; Protocol PRN Reason: Heart Rate >100 Last Admin: 08/25/24 17:00 Dose: 5 mg Documented By: JAC Metoprolol Tartrate (Metoprolol Tartrate 12.5 Mg Halftab) 12.5 mg PO BID [facility]; Protocol Last Admin: 08/31/24 09:54 Dose: 12.5 mg Documented By: KENTRELL Multivitamins/Vitamin C (Multivitamin Tablet) 1 tab PO DAILY [facility] Last Admin: 08/31/24 09:55 Dose: 1 tab Documented By: KENTRELL Ondansetron HCl (Ondansetron Hcl 4 Mg/2 Ml Vial) 4 mg IVPUSH Q8H PRN PRN Reason: Nausea and Vomiting Pravastatin Sodium (Pravastatin Sodium 80 Mg Tablet) 80 mg PO BEDTIME [facility] Last Admin: 08/24/24 21:01 Dose: 80 mg Documented By: ABDIEL Pyridostigmine [place] (Pyridostigmine [place] 60 Mg Tablet) 60 mg PO TID [facility] Last Admin: 08/31/24 09:54 Dose: 60 mg Documented By: KENTRELL Sodium Chloride (0.9 % Sodium Chloride Flush 3 Ml Syringe) 3 ml IVFLUSH QSHIFT [facility] Last Admin: 08/31/24 09:55 Dose: 3 ml Documented By: KENTRELL Labs 08/31/24 08:45 08/31/24 08:45 Labs: Laboratory Results - last 24 hr 08/31/24 08:45 MCV 96.9 MCH 30.4 MCHC 31.4 RDW 16.2 H Plt Count 167 D MPV 8.5 L Immature Gran % (Auto) 0.7 H Neut % (Auto) 86.7 H Lymph % (Auto) 5.6 L [place] % (Auto) 6.9 Eos % (Auto) 0.0 Baso % (Auto) 0.1 Lymph # (Auto) 0.5 L [place] # (Auto) 0.7 Eos # (Auto) 0.0 Baso # (Auto) 0.0 Abs Immat Gran (auto) 0.07 H Absolute Neuts (auto) 8.4 H Absolute Nucleated RBC 0.000 Nucleated RBC % (auto) 0.0 Anion Gap 5 L Estim Creat Clear Calc 152.2 Estimated GFR > 60 Random Glucose 143 H Calcium 8.8 D Total Creatine Kinase 152 Assessment and Plan (1) Myasthenia gravis: Status: Acute (2) Elevated LFTs: Status: Acute (3) Aspiration pneumonia: Status: Acute (4) Sepsis: Status: Acute Plan 79-year-old male with a past medical history significant for 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 Ptsosis and dyshagia, likely new diagnosis of myesthenia gravis\autoimmune disease could be immune checkpoint inhibitor mediated (receiving ipilimumab and nivolumab for cancer treatment) acetylcholine receptor blocking ab, binding ab and modulating ab pending brain CT negative finished 5 days IVIG continue solu-medrol 40 mg bid Onc following>rec to check CPK (532) and cardiac enzymes (trended down) assess for concurrent myositis/myocarditis (negative, discussed with cardiology). no need to transfer to [facility] Neuro following >rec to start pyridostigmine 60 TID and IVIG x 5 days patient symptoms improved mildly SENIOR CONTRACTS ADMINISTRATOR eval Sepsis with acute hypoxic respiratory failure secondary to aspiration pneumonia and acute COPD exacerbation improving chest CTA negative for central or large proximal pulmonary emboli. Severe bullous emphysematous changes, with possible superimposed aspiration or pneumonia in the right lower lobe. 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 Ramesh Cole at [facility] will need follow up after discharge Elevated LFTs Trended down cpk resolved hold statin for now Elevated troponin 539, 491, 185. no chest pain, likely due to demand. rule out myocarditis in setting of treatment with ICI for cancer and elevated cardiac enzymes echocardiogram ordered cardiology consult pending HLD/CAD hold satin due to above DNR/DNI VTE prophylaxis: Lovenox DISPO PT to evaluate Requires ongoing inpatient hospital stay for further evaluation of ptosis, treatment of respiratory failure, tachycardia and elevated cardiac enzymes requiring further workup Quality Stroke Does the patient have a stroke diagnosis?: No VTE Prior VTE?: No VTE Risk Level:: Medical - moderate - high VTE Device Contraindication: Treatment Not Indicated VTE Drug Contraindication: N/A - Med Ordered
--- NOTE | 2024-08-31 17:48 | PM.NEUROPN ---
Subjective Subjective Date of Service: 08/31/24 Interval History: Has shown some improvement. Feels fatigued. Denies any dysphagi aor nasal regurgitation of fluids . No diplopia. Says he is able to talk today which he could not yesterday. Critical Care Time (minutes): 0 Physical Exam Vital Signs: Vital Signs: Last Vital Signs Temp 97.3 F 08/31/24 15:46 Pulse 108 H 08/31/24 15:46 Resp 20 08/31/24 15:46 BP 117/72 08/31/24 15:46 Pulse Ox 98 08/31/24 15:46 O2 Del Method Nasal Cannula 08/31/24 15:46 O2 Flow Rate 3 08/31/24 15:46 Oxygen Flow Rate 3 08/22/24 15:05 BMI result Body Mass Index 27.8 Neuro: Other: L>R ptosis. Full EOM . weakness of plate and mouth closure - orbicularis saud. Mild diffuse weakness. Objective Data Labs 08/31/24 08:45 08/31/24 08:45 Labs: Laboratory Results - last 24 hr 08/31/24 08:45 WBC 9.7 RBC 4.50 L Hgb 13.7 L Hct 43.6 MCV 96.9 MCH 30.4 MCHC 31.4 RDW 16.2 H Plt Count 167 D MPV 8.5 L Immature Gran % (Auto) 0.7 H Neut % (Auto) 86.7 H Lymph % (Auto) 5.6 L [place] % (Auto) 6.9 Eos % (Auto) 0.0 Baso % (Auto) 0.1 Lymph # (Auto) 0.5 L [place] # (Auto) 0.7 Eos # (Auto) 0.0 Baso # (Auto) 0.0 Abs Immat Gran (auto) 0.07 H Absolute Neuts (auto) 8.4 H Absolute Nucleated RBC 0.000 Nucleated RBC % (auto) 0.0 Sodium 141 Potassium 4.0 Chloride 103 Carbon Dioxide 37 H Anion Gap 5 L BUN 27 H Creatinine 0.46 L Estim Creat Clear Calc 152.2 Estimated GFR > 60 Random Glucose 143 H Calcium 8.8 D Total Creatine Kinase 152 Microbiology Microbiology Results: Microbiology 08/22/24 16:30 Blood - Venous Blood Culture - Final No growth after 5 days. 08/22/24 16:30 Blood - Venous Blood Culture - Final No growth after 5 days. Progress Note: A&P Assessment and plan Plan Probable MG. Antibody titers pending. Recom: complete course of IVIG. Continue Prednisone 40mg. Increase Pyridostigmine to 6o mg q4hrs. PFTs for FEV-1 and vital capacity Time Spent With Patient Time: Total time managing care of this patient today 20 minutes. Procedures Date of Service Date of Service: 08/31/24 Quality Stroke Does the patient have a stroke diagnosis?: No VTE Prior VTE?: No VTE Risk Level:: Medical - moderate - high VTE Device Contraindication: Treatment Not Indicated VTE Drug Contraindication: N/A - Med Ordered
[2024-09-01] VITALS (8 sets, daily range): BP systolic 113–146; BP diastolic 70–85; PULSE 86–121; RESP 16–20; TEMP 36.2–37.1; O2SAT 92–100
[2024-09-01] MEDS: 0.9 % Sodium Chloride Flush 3 ML SYRINGE IVFLUSH ×3 (01:20→11:40)
[2024-09-01] MEDS: methylPREDNISolone Sod Succ 40 MG/ML VIAL IVPUSH ×2 (01:20→11:40)
[2024-09-01] MEDS: Enoxaparin Sodium 40 MG/0.4 ML SYRINGE SUBCUT (05:50)
[2024-09-01] MEDS: Dextrose 5 % and 0.9 % NaCl 1,000 ML 80 ML IVCONT (05:50)
[2024-09-01 06:56] LABS: MANUAL DIFF FLAG NO
[2024-09-01 07:07] LABS: Basophils Percent Auto 0.1 % (0-2); Hematocrit 43.4 % (42.0-52.0); Hemoglobin 13.8 g/dl (14.0-18.0); Imm Gran Abs Auto 0.08 X10*3/uL (0.00-0.03); Lymphocytes Absolute Auto 0.4 X10*3/uL (1.2-4.9); Mean Corpuscular HGB Conc 31.8 g/dl (31.0-36.0); Mean Corpuscular Hemoglobin 30.5 pg (27.0-33.0); Monocytes Absolute Auto 0.4 X10*3/uL (0.1-1.2); Monocytes Percent Auto 4.8 % (2-11); Neutrophils Absolute Auto 7.4 x10*3/uL (2.0-8.3); Neutrophils Percent Auto 89.1 % (45-73); Platelet Count 180 X10*3/uL (160-400); Red Blood Count 4.52 X10*6/uL (4.60-5.80); Red Cell Distribution Width 16.2 % (11.0-16.0); White Blood Count 8.3 X10*3/uL (4.8-10.8)
[2024-09-01 07:13] LABS: Blood Urea Nitrogen 30 mg/dL (9-16); Calcium 9.3 mg/dL (8.4-10.2); Creatinine Clr Calc Pharmacy 145.9; Estimated Glomerular Filt Rate > 60; Glucose Random 136 mg/dL (60-115)
[2024-09-01 07:20] LABS: Anion Gap 10 (12-20); Carbon Dioxide 37 mmol/L (22-29); Chloride 101 mmol/L (96-108); Potassium 4.7 mmol/L (3.3-5.1); Sodium 143 mmol/L (135-145)
[2024-09-01] MEDS: Albuterol/Iprat 2.5/0.5MG 3 ML AMPUL.NEB INHALE ×3 (07:29→18:51)
[2024-09-01] MEDS: diphenhydrAMINE HCL 50 MG/ML VIAL 25 MG IVPUSH ×2 (07:29→14:44)
[2024-09-01] MEDS: Multivitamin TABLET 1 TAB PO (07:31)
[2024-09-01] MEDS: pyRIDostigmine bromide 60 MG TABLET PO ×3 (07:31→18:13)
[2024-09-01] MEDS: Metoprolol Tartrate 12.5 MG HALFTAB PO (07:31)
[2024-09-01] MEDS: Loratadine 10 MG TABLET PO (07:32)
[2024-09-01] MEDS: Fluticasone/Vilanterol 200/25 BLST.W.DEV 1 PUFF INHALE (08:39)
--- NOTE | 2024-09-01 10:18 | MHC.SL.SWA ---
Speech Pathologist Impression: Severe oral pharyngeal dysphagia Risk of Aspiration Due to: Myasthenia Gravis Dysphasia Diet Status: Patient continues at very high risk for aspiration due to Myasthenia Gravis and resulting potential for further neurological decline effecting swallowing. Recommend DOWNGRADE diet to Puree (NDD1) and HONEY THICK liquids, pills crushed in puree. Patient requires direct supervision at all meals with strict aspiration precautions. Please discontinue meal if patient demonstrates signs of aspiration, including drop in O2 saturation, wet voice/noisy airway/respiration, coughing up residual/excessive food residual in mouth. Please provide patient with cuing and support with these strategies: -take small bites -1-2 dry swallows after each bite -liquids by teaspoon or controlled cup sip -take one sip at a time -follow each sip with throat clear & 1-2 dry swallows -Periodically check oral cavity for residual. If present, cue sip or liquid and double swallow. -avoid the use of straws -maintain upright 90 degree position during PO intake and for at least 30 minutes afterwards Liquid Consistency and Strategies for Safe Swallow: Liquid Intake Recommendation: [place] Thick Liquid Intake Strategies: Small Sips No Straws Double Swallow Solid Food Consistency: Dietary Recommendations: Pureed (NDD1) Additional Modifications to Solid Foods: Patient is able to feed himself, but is recommended direct supervision to monitor for aspiration signs/strict aspiration precautions, patient's progression through meal and provide cues as needed for safe feeding strategies, Please see status note above for recommended strategies. Therapy Recommendations: Recommend continued speech therapy during inpatient stay and at the next level of care for the treatment of dysphagia. Patient is recommended to continue on recommended modified diet after discharge. Oral Medication Intake: Crushed with Puree Please contact the pharmacy regarding appropriate crushable or liquid drug formulations that are available whenever modified delivery is recommended. Compensatory Strategies and Precautions to be Taken for Safe Swallow: Sitting Upright (90 deg) Double Swallow No Straw Small Bites and Sips Rate of Ingestion Change Supervision While Eating and Drinking for Safe Swallow: Direct Supervision (1:1) Foods to Avoid: Difficult to chew solids. Swallowing Recommended Treatments: Compens. Strategy Educat. Recommendation for Speech: Inpatient Speech Therapy Speech Therapy through Rehab Facility Comment on treatment 09/01/24: Patient seen at breakfast w/ tray of NDD3/Chopped Advanced and [place] Thick liquids, s/p diet advancement recommended by [employer] SOFTWARE DEVELOPER 08/31/24. Patient presented with very poor toleration of these consistencies, with swallowing behaviors consistent with what had been documented on MBSS study of 08/26/24: Highly disorganized oral phase, marked delay of swallow initiation, evidence of pharyngeal residual after swallow with patient coughing/clearing food back to oral cavity from pharynx. Patient is responsive to cuing of strategies, however is very frustrated with swallowing difficulty and food and liquid consistencies recommended. Non the less, patient presents at very high risk of aspiration/choking event with more advanced diet. RUBY ON RAIL[employer] SOFTWARE DEVELOPER recommends DOWNGRADE diet to Puree (NDD1) with HONEY THICK liquids, pills crushed in puree. Patient requires 1-1 supervision at all meals with STRICT aspiration precautions and specific cuing for swallowing strategies recommended above (See STATUS note above). Continuous Improvement Director Clinican/Clinical Fellow: No Supervisory Statement: I have reviewed and agree with the student/clinical fellow's documentation: N/A Speech Language Pathologist: Monique Duffy M.A., CCC-[employer] SOFTWARE DEVELOPER
[2024-09-01] MEDS: Nystatin Oral Susp 500,000 UNIT/5 ML ORAL.SUSP 400000 UNIT BUCCAL (15:31)
--- NOTE | 2024-09-01 15:52 | MHC.CM.PN ---
Addendum entered by Laura Go 09/02/24 10:47: Plan remains to be transfer to [facility], pending bed availability. CM will follow. Original Note: Per ROUNDS discussion, Plan is for Patient to transfer to [facility].
[2024-09-01 17:58] LABS: Acetylcholine Receptor Binding <0.30 nmol/L
--- NOTE | 2024-09-01 18:15 | HO.PM.IMPN ---
Subjective Subjective Date of Service: 09/02/24 Interval History: Seen and evaluated this morning report not feeling any better does not like the food offered no other overnight events Physical Exam Vital Signs: Vital Signs: Last Vital Signs Temp 98.4 F 09/01/24 15:09 Pulse 110 H 09/01/24 15:09 Resp 20 09/01/24 15:09 BP 127/73 09/01/24 15:09 Pulse Ox 100 09/01/24 15:09 O2 Del Method Nasal Cannula 09/01/24 15:09 O2 Flow Rate 3 09/01/24 15:09 Oxygen Flow Rate 3 08/22/24 15:05 BMI result Body Mass Index 27.8 Const: Other: Constitutional : Awake, interactive, not in distress Neck : Normal inspection, Supple Cardiovascular : RRR, no JVP, no lower extremity edema Respiratory : good bilateral air entry, no crackles, wheezes or rhonchi Gastrointestinal: soft, lax, Normal bowel sounds, Non tender Skin : Warm, Dry Neurological : Alert & oriented x3, More left-sided ptosis than right side. Extraocular muscles are intact, reporting double with both eyes open. Face was symmetrical. There was no focal arm or leg weakness. Speech was normal. Affect was normal. Objective Data Active Medications Acetaminophen (Acetaminophen 325 Mg Tablet) 650 mg PO Q6H PRN PRN Reason: Pain, Mild 1-3,fever,headache Last Admin: 08/30/24 14:02 Dose: 650 mg Documented By: JAC Albuterol/Ipratropium (Albuterol/Iprat 2.5/0.5mg 3 Ml Ampul.Neb) 3 ml INHALE RQ6H WHILE AWAKE GUS Last Admin: 09/01/24 15:31 Dose: 3 ml Documented By: KRISS Benzocaine (Throat Lozenge, Medicated Lozenge) 1 lozenge MUCOUS MEM Q2H PRN PRN Reason: Sore Throat Last Admin: 08/26/24 00:42 Dose: 1 lozenge Calcium Carbonate (Calcium Carbonate 750 Mg Tab.Chew) 750 mg PO Q4H PRN PRN Reason: Heartburn Diphenhydramine HCl (Diphenhydramine Hcl 50 Mg/Ml Vial) 25 mg IVPUSH Q6H PRN PRN Reason: allergy Last Admin: 09/01/24 14:44 Dose: 25 mg Documented By: KRISS Enoxaparin Sodium (Enoxaparin Sodium 40 Mg/0.4 Ml Syringe) 40 mg SUBCUT Q24H [facility] Last Admin: 09/01/24 05:50 Dose: 40 mg Documented By: MARCELLO Fluticasone/Vilanterol (Fluticasone/Vilanterol 200/25 Blst.W.Dev) 1 puff INHALE RDAILY [facility] Last Admin: 09/01/24 08:39 Dose: 1 puff Documented By: SONYA Loratadine (Loratadine 10 Mg Tablet) 10 mg PO DAILY [facility] Last Admin: 09/01/24 07:32 Dose: 10 mg Documented By: KRISS Magnesium Hydroxide (Milk Of Magnesia 30 Ml Oral.Susp) 30 ml PO DAILY PRN PRN Reason: Constipation Melatonin (Melatonin 3 Mg Tablet) 6 mg PO BEDTIME PRN PRN Reason: Insomnia Last Admin: 08/26/24 00:13 Dose: 6 mg Documented By: HANNAH Methylprednisolone Sodium Succinate (Methylprednisolone Sod Succ 40 Mg/Ml Vial) 40 mg IVPUSH Q12H [facility] Last Admin: 09/01/24 11:40 Dose: 40 mg Documented By: KRISS Metoprolol Tartrate (Metoprolol Tartrate 5 Mg/5 Ml Vial) 5 mg IVPUSH Q6H PRN; Protocol PRN Reason: Heart Rate >100 Last Admin: 08/25/24 17:00 Dose: 5 mg Documented By: JAC Metoprolol Tartrate (Metoprolol Tartrate 12.5 Mg Halftab) 12.5 mg PO BID [facility]; Protocol Last Admin: 09/01/24 07:31 Dose: 12.5 mg Documented By: KRISS Multivitamins/Vitamin C (Multivitamin Tablet) 1 tab PO DAILY [facility] Last Admin: 09/01/24 07:31 Dose: 1 tab Documented By: KRISS Nystatin (Nystatin Oral Susp 500,000 Unit/5 Ml Oral.Susp) 400,000 unit BUCCAL QID [facility]; Protocol Last Admin: 09/01/24 15:31 Dose: 400,000 unit Documented By: KRISS Ondansetron HCl (Ondansetron Hcl 4 Mg/2 Ml Vial) 4 mg IVPUSH Q8H PRN PRN Reason: Nausea and Vomiting Pravastatin Sodium (Pravastatin Sodium 80 Mg Tablet) 80 mg PO BEDTIME [facility] Last Admin: 08/24/24 21:01 Dose: 80 mg Documented By: ABDIEL Pyridostigmine [place] (Pyridostigmine [place] 60 Mg Tablet) 60 mg PO Q4H [facility] Last Admin: 09/01/24 18:13 Dose: 60 mg Documented By: KRISS Sodium Chloride (0.9 % Sodium Chloride Flush 3 Ml Syringe) 3 ml IVFLUSH QSHIFT [facility] Last Admin: 09/01/24 11:40 Dose: 3 ml Documented By: KRISS Labs 09/01/24 06:28 09/01/24 06:28 Labs: Laboratory Results - last 24 hr 08/25/24 09/01/24 13:51 06:28 MCV 96.0 MCH 30.5 MCHC 31.8 RDW 16.2 H Plt Count 180 MPV 9.0 L Immature Gran % (Auto) 1.0 H Neut % (Auto) 89.1 H Lymph % (Auto) 5.0 L [place] % (Auto) 4.8 Eos % (Auto) 0.0 Baso % (Auto) 0.1 Lymph # (Auto) 0.4 L [place] # (Auto) 0.4 Eos # (Auto) 0.0 Baso # (Auto) 0.0 Abs Immat Gran (auto) 0.08 H Absolute Neuts (auto) 7.4 Absolute Nucleated RBC 0.000 Nucleated RBC % (auto) 0.0 Anion Gap 10 L Estim Creat Clear Calc 145.9 Estimated GFR > 60 Random Glucose 136 H Calcium 9.3 Acetylchol Rcpt Bind Ab <0.30 Assessment and Plan (1) Myasthenia gravis: Status: Acute (2) Aspiration pneumonia: Status: Acute Plan 79-year-old male with a past medical history significant for 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 Ptsosis and dyshagia, likely new diagnosis of myesthenia gravis\autoimmune disease could be immune checkpoint inhibitor mediated (receiving ipilimumab and nivolumab for cancer treatment) acetylcholine receptor blocking ab, binding ab and modulating ab pending brain CT negative finished 5 days IVIG continue solu-medrol 40 mg bid Onc following>rec to check CPK (532) and cardiac enzymes (trended down) assess for concurrent myositis/myocarditis (negative, discussed with cardiology). no need to transfer to [facility] Neuro following >rec to start pyridostigmine 60 TID and IVIG x 5 days patient symptoms improved mildly [employer] eval Sepsis with acute hypoxic respiratory failure secondary to aspiration pneumonia and acute COPD exacerbation improving chest CTA negative for central or large proximal pulmonary emboli. Severe bullous emphysematous changes, with possible superimposed aspiration or pneumonia in the right lower lobe. finished Flagyl and ceftriaxone due to likely aspiration pneumonia (allergy to PCN) [employer] eval> puree, add ensure to diet; MBSS recommended and pending continue DuoNebs o2 requirements improving, on 2L of supplemental oxygen, baseline 3 L as needed repeat Chest CT 08/29> no new airspace disease Metastatic squamous cell carcinoma of probable lung origin right rib/chest wall mass s/p cycle 2 carboplatin, paclitaxel, ipilimumab, nivolumab oncologist Dr. Ramesh Cole at [facility] will need follow up after discharge Elevated LFTs Trended down cpk resolved hold statin for now Elevated troponin 539, 491, 185. no chest pain, likely due to demand. rule out myocarditis in setting of treatment with ICI for cancer and elevated cardiac enzymes echocardiogram ordered cardiology consult pending HLD/CAD hold satin due to above DNR/DNI VTE prophylaxis: Lovenox DISPO PT to evaluate Requires ongoing inpatient hospital stay for further evaluation of ptosis, treatment of respiratory failure, tachycardia and elevated cardiac enzymes requiring further workup Quality Stroke Does the patient have a stroke diagnosis?: No VTE Prior VTE?: No VTE Risk Level:: Medical - moderate - high VTE Device Contraindication: Treatment Not Indicated VTE Drug Contraindication: N/A - Med Ordered
--- NOTE | 2024-09-01 23:07 | PC.NURSE ---
2250: pt declined all PM meds - despite education. Pt stated im taking the night off MD jarrell aware.
[2024-09-02] MEDS: 0.9 % Sodium Chloride Flush 3 ML SYRINGE IVFLUSH ×2 (00:29→09:38)
[2024-09-02] MEDS: methylPREDNISolone Sod Succ 40 MG/ML VIAL IVPUSH ×2 (00:30→12:05)
[2024-09-02] MEDS: Acetaminophen 325 MG TABLET 650 MG PO ×2 (02:13→09:37)
[2024-09-02] MEDS: pyRIDostigmine bromide 60 MG TABLET PO ×2 (02:14→09:38)
[2024-09-02 03:59] VITALS: BP 120/57; PULSE 129; RESP 18; TEMP 36.4; O2SAT 95
[2024-09-02 07:27] VITALS: PULSE 111; RESP 20; O2SAT 97
[2024-09-02] MEDS: Albuterol/Iprat 2.5/0.5MG 3 ML AMPUL.NEB INHALE (07:27)
[2024-09-02] MEDS: Fluticasone/Vilanterol 200/25 BLST.W.DEV 1 PUFF INHALE (07:27)
[2024-09-02 07:38] VITALS: BP 127/60; PULSE 100; RESP 18; TEMP 36.4; O2SAT 98
[2024-09-02] MEDS: Enoxaparin Sodium 40 MG/0.4 ML SYRINGE SUBCUT (09:37)
[2024-09-02] MEDS: diphenhydrAMINE HCL 50 MG/ML VIAL 25 MG IVPUSH (09:38)
[2024-09-02] MEDS: Multivitamin TABLET 1 TAB PO (09:38)
[2024-09-02] MEDS: Loratadine 10 MG TABLET PO (09:38)
[2024-09-02] MEDS: Metoprolol Tartrate 12.5 MG HALFTAB PO (09:38)
[2024-09-02] MEDS: Nystatin Oral Susp 500,000 UNIT/5 ML ORAL.SUSP 400000 UNIT BUCCAL ×2 (09:38→12:05)
[2024-09-02 12:01] VITALS: BP 106/58; PULSE 100; RESP 18; TEMP 36.4; O2SAT 99
--- NOTE | 2024-09-02 12:51 | P.DS_ITS ---
DS: Providers Provider Date of Service: 09/02/24 Date of admission: 08/22/24 21:21 Date of discharge: 09/02/24 Primary care physician: Koby Peña MD Consults: 08/25/24 14:10 Consult to Neurology Routine Consulting Provider: [facility] Reason for consultation: ptsosis Has provider been notified: No 08/26/24 12:17 Consult to Cardiology Routine Consulting Provider: [facility] Reason for consultation: elevated trops, tachy, on ICI for cancer ?myocarditis Has provider been notified: No 08/30/24 17:21 Consult to Neurology Routine Consulting Provider: [facility] Reason for consultation: re-evaluate for MG treatment DS: Diagnosis Discharge Diagnosis (1) Myasthenia gravis: Status: Acute (2) Elevated LFTs: Status: Acute (3) Aspiration pneumonia: Status: Acute (4) Sepsis: Status: Acute (5) Elevated troponin: Status: Acute (6) Acidosis, lactic: Status: Acute (7) Tachycardia: Status: Acute (8) Acute hypoxemic respiratory failure: Status: Acute (9) COPD exacerbation: Status: Acute DS: Summary Hospital Course Hospital Course: The patient had prolonged hospital stay. for full details please return to full EMR. 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 The patient denies any fever, chills, nausea or vomiting. He reports that he recently started a new chemotherapy that is supposed to start immunotherapy this week. He has had a poor appetite but has been hydrating well. He reports when drinking liquids he coughs and chokes often. He has been using 3 L via NC at home, usually does not need this at baseline. 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 finished 5 days IVIG currently on solu-medrol 40 mg bid and pyridostigmine 60 Q4H per neurology recommendations who evaluated him on multiple occasions during hospital stay. Oncology evaluated the patient and recommended to check CPK (532) and cardiac enzymes (trended down) to assess for concurrent myositis/myocarditis (negative, discussed with cardiology) Speech team following. The patient started to deteriorate again after finishing IVIG and neurology recommended transfer to [facility] for plasmapheresis # Sepsis with acute hypoxic respiratory failure secondary to aspiration pneumonia and acute COPD exacerbation chest CTA negative for central or large proximal pulmonary emboli. Severe bullous emphysematous changes, with possible superimposed aspiration or pneumonia in the right lower lobe. finished Flagyl and ceftriaxone due to likely aspiration pneumonia (allergy to PCN) total of 7 days. KEpt on Duonebs and steroids (as part of MG treatment). o2 requirements improving, on 2L of supplemental oxygen, baseline 3 L as needed. Cultures remained negative. repeated Chest CT 08/29> no new airspace disease # Swallowing problem BUSINESS [employer]ESS ASSOCIATE evaluated the patient and recommended puree with honey thick liquids. added ensure to diet; MBSS showed Silent aspiration on thin liquids # Metastatic squamous cell carcinoma of probable lung origin right rib/chest wall mass s/p cycle 2 carboplatin, paclitaxel, ipilimumab, nivolumab oncologist Dr. Ramesh Cole at [facility], will need follow up after discharge # Elevated LFTs Trended down . cpk resolved. Continue to hold statin for now # Elevated troponin 5Trended down 39, 491, 185. no chest pain, likely due to demand. ruled out myocarditis in setting of treatment with ICI for cancer and elevated cardiac enzymes. echocardiogram showed estimated ejection fraction is >70%. cardiology consulted No further workup is required for mildly elevated troponin levels. Discharge plan Transfer to [facility] [place] for Plasmapheresis. Time Attestation Discharge Coordination Time (in mins): 42 Quality: Safe Use of Opioids Does Pt have an Active Cancer Diagnosis on the Problem List?: No Quality: Stroke Does the patient have a stroke diagnosis?: No Physical Exam Vital Signs: Vital Signs: Last Vital Signs Temp 98.4 F 09/01/24 15:09 Pulse 110 H 09/01/24 15:09 Resp 20 09/01/24 15:09 BP 127/73 09/01/24 15:09 Pulse Ox 100 09/01/24 15:09 O2 Del Method Nasal Cannula 09/01/24 15:09 O2 Flow Rate 3 05/29/25 15:09 Oxygen Flow Rate 3 08/22/24 15:05 BMI result Body Mass Index 27.8 Const: Other: Constitutional : Awake, interactive, not in distress Neck : Normal inspection, Supple Cardiovascular : RRR, no JVP, no lower extremity edema Respiratory : good bilateral air entry, no crackles, wheezes or rhonchi Gastrointestinal: soft, lax, Normal bowel sounds, Non tender Skin : Warm, Dry Neurological : Alert & oriented x3, More left-sided ptosis than right side. Extraocular muscles are intact, reporting double with both eyes open. Face was symmetrical. There was no focal arm or leg weakness. Speech was normal. Affect was normal. DS: Data Data Completed and Pending Labs on day of discharge: Laboratory Results - last 24 hr 09/01/24 06:28 WBC 8.3 RBC 4.52 L Hgb 13.8 L Hct 43.4 MCV 96.0 MCH 30.5 MCHC 31.8 RDW 16.2 H Plt Count 180 MPV 9.0 L Immature Gran % (Auto) 1.0 H Neut % (Auto) 89.1 H Lymph % (Auto) 5.0 L [place] % (Auto) 4.8 Eos % (Auto) 0.0 Baso % (Auto) 0.1 Lymph # (Auto) 0.4 L [place] # (Auto) 0.4 Eos # (Auto) 0.0 Baso # (Auto) 0.0 Abs Immat Gran (auto) 0.08 H Absolute Neuts (auto) 7.4 Absolute Nucleated RBC 0.000 Nucleated RBC % (auto) 0.0 Sodium 143 Potassium 4.7 Chloride 101 Carbon Dioxide 37 H Anion Gap 10 L BUN 30 H Creatinine 0.48 L Estim Creat Clear Calc 145.9 Estimated GFR > 60 Random Glucose 136 H Calcium 9.[address] scan - head: Radiologist's impression: ITS Impressions Chest X-Ray 08/22/24 15:30 IMPRESSION: Known right-sided chest wall mass. No acute abnormality is seen. Electronically signed by: Koby Mays MD 08/22/2024 03:45 PM EDT RP Head CT 08/25/24 15:46 IMPRESSION: No acute intracranial abnormality. Electronically signed by: Felix Calloway MD 08/25/2024 04:21 PM EDT RP Modified Barium Swallow 08/26/24 13:00 IMPRESSION: 1. Silent aspiration on thin liquids. See above. Refer to the speech therapy report for further clarification Electronically signed by: Felix Calloway MD 08/26/2024 02:01 PM EDT RP Discharge Plan Discharge Anticipated Discharge Date/Time: 09/01/24 15:19 Patient Disposition: Xfer Acute Care Hospital Discharge Diagnosis: Drug induced Myasthenia gravis Sepsis , hypoxia, pneumonia Referrals: [facility] [Outside] - 1 Week Koby Peña MD [Primary Care Provider] - 1 Week Discharge Medications: New pyridostigmine bromide 60 mg Tablet 60 mg PO Q4H Qty: 1 0RF Solu-Medrol (PF) 40 mg/mL Recon Soln 40 mg IVPUSH Q12H Qty: 1 0RF nystatin 100,000 unit/mL Suspension 400,000 unit buccal QID 1 Days Qty: 16 0RF Continued albuterol sulfate 90 mcg/actuation HFA aerosol inhaler 2 puff PO Q4H PRN (Reason: for wheezing) Qty: 8.5 0RF Incruse Ellipta 62.5 mcg/actuation blister with device 1 inh INHALATION DAILY fluticasone furoate-vilanterol [Breo Ellipta] 200-25 mcg/dose blister with device 1 ea INHALATION DAILY multivitamin [Daily Multi-Vitamin] Tablet 1 tab PO DAILY pravastatin 80 mg tablet 80 mg PO BEDTIME Discharge Orders: Discharge Order (Routine); Ordered 09/02/24 Ordered By: Kirt Pantoja Diet: NDD1 w Honey thick Activity on Discharge: As tolerated Stand Alone Forms: Patient Portal Discharge page Print Language: Greenlandic Care Plan Goals: . Health Concerns: . Plan of Treatment: . Assessment: . Discharge Date/Time: 09/02/24 13:50
--- NOTE | 2024-09-02 13:03 | PC.NURSE ---
Report given to CHAVA Pitts assuming care of patient at [facility] oncology upon transfer at this time.
[2024-09-03 17:09] LABS: Acetylcholine Recep Modulating 18
[2024-09-03 18:28] LABS: Acetylcholine Recept. Blocking <15 (<15)
== END 2024-09-02 13:50 | disposition short-term general hospital (02) | DRG 871 ==
LOC: HO.ED 21:21 → HO.EDOVER 21:27 → HO.S3 08-23 15:23 → HO.IMC 08-23 18:54 → HO.S3 08-23 19:40 → HO.IMC 08-23 19:42
PROVIDERS: Physician Assistant; Physician Assistant Medical; Admitting Provider Student in an Organized Health Care Education/Training Program; Emergency Provider Emergency Medicine; PCP Internal Medicine Medical Oncology; Visit Provider Student in an Organized Health Care Education/Training Program
DX: A41.9 Sepsis, unspecified organism (principal); J69.0 Pneumonitis due to inhalation of food and vomit; J96.01 Acute respiratory failure with hypoxia; C34.91 Malignant neoplasm of unspecified part of right bronchus or lung; C78.02 Secondary malignant neoplasm of left lung; C79.51 Secondary malignant neoplasm of bone; G70.00 Myasthenia gravis without (acute) exacerbation; J43.9 Emphysema, unspecified; Z99.81 Dependence on supplemental oxygen; I45.10 Unspecified right bundle-branch block; R13.10 Dysphagia, unspecified; T45.AX5A Adverse effect of immune checkpoint inhibitors and immunostimulant drugs, initial encounter; C69.51 Malignant neoplasm of right lacrimal gland and duct; I25.10 Atherosclerotic heart disease of native coronary artery without angina pectoris; E78.5 Hyperlipidemia, unspecified; Z66 Do not resuscitate; Z20.822 Contact with and (suspected) exposure to COVID-19; Z87.891 Personal history of nicotine dependence; Z88.0 Allergy status to penicillin; Z98.1 Arthrodesis status; Z79.51 Long term (current) use of inhaled steroids; Z79.899 Other long term (current) drug therapy
CPT/HCPCS: 0241U; 36415; 70450; 71045; 71250; 71275; 74230; 80048; 80053; 82550; 82803; 83605; 83735; 83880; 84443; 84484; 85025; 85610; 86041; 86042; 86043; 87040; 92526; 92610; 92611; 93005; 93306; 94010; 94640; 97110; 97162; 99285; J0456; J0696; J1200; J1569; J1650; J1836; J2919; J7120; Q9957; Q9967

== ENCOUNTER → 2024-08-22 15:01 | Outpatient (BNV) | payer MEDICARE, SELFPAY | PROVIDERS: Admitting Provider Student in an Organized Health Care Education/Training Program; Emergency Provider Emergency Medicine; PCP Internal Medicine Medical Oncology; Visit Provider Internal Medicine Cardiovascular Disease | DX: I49.1 Atrial premature depolarization (principal); I45.10 Unspecified right bundle-branch block; R00.0 Tachycardia, unspecified | CPT/HCPCS: 93010 ==

== ENCOUNTER → 2024-08-22 15:02 | Outpatient (BNV) | payer MEDICARE, SELFPAY | PROVIDERS: Emergency Provider Emergency Medicine; Visit Provider Radiology Diagnostic Radiology | DX: R06.00 Dyspnea, unspecified (principal); R06.02 Shortness of breath | CPT/HCPCS: 71045 ==

== ENCOUNTER 2024-08-22 21:21 | Outpatient (BNV) | payer MEDICARE, SELFPAY | END 2024-08-29 08:27 | PROVIDERS: Admitting Provider Student in an Organized Health Care Education/Training Program; Emergency Provider Emergency Medicine; PCP Internal Medicine Medical Oncology; Visit Provider Radiology Diagnostic Radiology | DX: R06.02 Shortness of breath (principal) | CPT/HCPCS: 71250 ==

== ENCOUNTER 2024-08-22 21:21 | Outpatient (BNV) | payer MEDICARE, SELFPAY | END 2024-08-26 08:01 | PROVIDERS: Admitting Provider Student in an Organized Health Care Education/Training Program; Emergency Provider Emergency Medicine; PCP Internal Medicine Medical Oncology; Visit Provider Radiology Diagnostic Radiology | DX: R06.02 Shortness of breath (principal) | CPT/HCPCS: 74230 ==

== ENCOUNTER 2024-08-22 21:21 | Outpatient (BNV) | payer MEDICARE, SELFPAY | END 2024-08-26 07:00 | PROVIDERS: Admitting Provider Student in an Organized Health Care Education/Training Program; Emergency Provider Emergency Medicine; PCP Internal Medicine Medical Oncology; Visit Provider Internal Medicine Cardiovascular Disease | DX: I42.8 Other cardiomyopathies (principal) | CPT/HCPCS: 93306 ==

== ENCOUNTER 2024-08-22 21:21 | Outpatient (BNV) | payer MEDICARE, SELFPAY | END 2024-08-25 15:46 | PROVIDERS: Admitting Provider Student in an Organized Health Care Education/Training Program; Emergency Provider Emergency Medicine; PCP Internal Medicine Medical Oncology; Visit Provider Radiology Diagnostic Radiology | DX: H02.409 Unspecified ptosis of unspecified eyelid (principal) | CPT/HCPCS: 70450 ==

== ENCOUNTER → 2024-08-22 21:21 | Outpatient (BNV) | payer MEDICARE, SELFPAY | PROVIDERS: Admitting Provider Student in an Organized Health Care Education/Training Program; Emergency Provider Emergency Medicine; PCP Internal Medicine Medical Oncology; Visit Provider Internal Medicine Cardiovascular Disease | DX: G70.01 Myasthenia gravis with (acute) exacerbation (principal); R79.89 Other specified abnormal findings of blood chemistry | CPT/HCPCS: 99222 ==

== ENCOUNTER → 2024-08-22 21:21 | Outpatient (BNV) | payer MEDICARE, SELFPAY | PROVIDERS: Admitting Provider Student in an Organized Health Care Education/Training Program; Emergency Provider Emergency Medicine; Visit Provider Physician Assistant | DX: G70.00 Myasthenia gravis without (acute) exacerbation (principal); R79.89 Other specified abnormal findings of blood chemistry; J69.0 Pneumonitis due to inhalation of food and vomit; A41.9 Sepsis, unspecified organism | CPT/HCPCS: 99223; 99232; 99233 ==

== ENCOUNTER → 2024-08-22 21:21 | Outpatient (BNV) | payer MEDICARE, SELFPAY | PROVIDERS: Admitting Provider Student in an Organized Health Care Education/Training Program; Emergency Provider Emergency Medicine; PCP Internal Medicine Medical Oncology; Visit Provider Psychiatry & Neurology Neurology | DX: G70.00 Myasthenia gravis without (acute) exacerbation (principal) | CPT/HCPCS: 99222 ==